=== PATIENT | male | born 1955 | race Caucasian/White ===

== ENCOUNTER 2023-01-31 13:00 | Outpatient (RCR) | payer MEDICARE, SELFPAY ==
--- NOTE | 2023-01-10 13:30 | PC.NURSE ---
PATIENT ARRIVES AMBULATORY TO INFUSION SERVICES. PATIENT IS MADE COMFORTABLE IN THE RECLINER. CONSENT SIGNED. VITAL SIGNS OBTAINED. PERIPHERAL IV INITIATED IN THE R WRIST AFTER 1 ATTEMPT USING A 22G IV CATHETER IMMEDIATE BLOOD RETURN. IV INFUSION INITITATED AT 1:10PM.
--- NOTE | 2023-01-10 16:12 | PC.NURSE ---
IV INFUSION WAS COMPLETED AT 1340. THE IV WAS FLUSHED WITH NORMAL SALINE AND THE IV CATHETER WAS REMOVED. THE SITE IS COVERED WITH A COTTON BALL AND BAND AID. PATIENT IS DISCHARGED AMBULATORY TO HOME WITH NO COMPLAINTS.
[2023-01-10 16:15] VITALS: BP 149/77; PULSE 75; RESP 20; TEMP 36.7; O2SAT 94
[2023-01-17 13:00] VITALS: BP 158/76; PULSE 73; RESP 20; TEMP 36.5; O2SAT 95
--- NOTE | 2023-01-17 13:54 | PC.NURSE ---
PATIENT ARRIVES AMBULATORY TO INFUSION SERVICES. PATIENT IS MADE COMFORTABLE IN THE RECLINER. VITAL SIGNS OBTAINED. PERIPHERAL IV INITIATED IN THE R WRIST AFTER 3 ATTEMPTS USING A 22G IV CATHETER. PATIENT TOLERATED PROCEDURE WELL. POST IV INFUSION THE IV IS FLUSHED WITH NORMAL SALINE AND REMOVED. THE SITE IS COVERED WITH A COTTON BALL AND BAND AID. THE PATIENT IS DISCHARGED AMBULATORY TO HOME WITH NO COMPLAINTS.
[2023-01-24 13:04] VITALS: BP 167/95; PULSE 77; RESP 20; TEMP 36.3; O2SAT 95
--- NOTE | 2023-01-24 13:34 | PC.NURSE ---
Patient is here for Prolastin infusion, he denies any issues with previous infusion. Vitals obtained, IV started and tolerated well. Prolastin infusing and patient is tolerating well without issues. We will continue to monitor.
[2023-01-31 12:56] VITALS: PULSE 86; RESP 22; TEMP 36.7; O2SAT 94
--- NOTE | 2023-01-31 13:17 | PC.NURSE ---
1256: Pt. to [facility] amb. with portable O2 intact. Pt. called in with current weight, pharmacy aware.Seated in recliner. O2 to wall unit @ 4L n/c per pt. request. VSS. #22 gauge IV initiated to right hand on first attempt. Flushes easily. Pt. denies c/o pain.
--- NOTE | 2023-01-31 13:48 | PC.NURSE ---
1325: IV Prolastin initiated at this time. Pt. denies needs or c/o. 1353: Prolastin infusion completed. Pt. wihout s&s of adverse reaction. IV d/c'd, pressure to site. 1355: D/c'd to home amb. with portable O2 intact.
== END 2023-02-02 23:59 | disposition home or self-care (01) ==
LOC: INF 13:00
PROVIDERS: PCP Family Medicine; Visit Provider Internal Medicine
DX: J43.2 Centrilobular emphysema (principal)
CPT/HCPCS: 96365; J0256

== ENCOUNTER 2023-02-07 20:22 | Emergency (ER) | payer MEDICARE, SELFPAY ==
[2023-02-07 20:28] VITALS: BP 163/119; PULSE 156; RESP 18; TEMP 36.6; O2SAT 98; BMI 41.5
[2023-02-07 20:34] VITALS: BP 163/119; PULSE 157; RESP 14
[2023-02-07 20:38] VITALS: BP 157/104; PULSE 84; RESP 12
--- NOTE | 2023-02-07 20:39 | ED_ITS ---
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 Presents complaining of rapid heart beat. States he was not aware of it and was and is asymptomatic. His watch is how he found out. He did not want to come to the hospital but his insisted. He denies any worsening of dyspnea and denies chest pain or nausea. no abdominal pain Onset (ago): hour(s) Related Data Home Medications Medication Instructions Recorded Confirmed albuterol sulfate 90 mcg/actuation inhalation 01/17/23 aerosol inhaler fluticasone fur. 100 mcg-umeclid inhalation 01/17/23 62.5 mcg-vilant 25 mcg inhalat.powder (Trelegy Ellipta) primidone 250 mg tablet mg 01/17/23 primidone 50 mg tablet mg 01/17/23 Allergies Allergy/AdvReac Type Severity Reaction Status Date / Time No Known Drug Allergies Allergy Verified 02/07/23 20:36 Review of Systems ROS Status of ROS 10 or more systems reviewed and unremarkable except as noted in history and below [facility] Medical History (Updated 02/07/23 @ 23:38 by Bridger Baac MD) (~05/2021) Surgical History (Updated 01/17/23 @ 11:13 by Natalia Rodriguez) (~2019) (~04/2020) Family History (Updated 01/17/23 @ 11:09 by Natalia Rodriguez) Mother Emphysema of lung Father Leukemia Social History (Updated 01/17/23 @ 11:14 by Natalia Rodriguez) Smoking status: Former smoker What tobacco products do you use: cigarettes Pack-years instructions: Please document either packs per day or cigarettes per day in order for pack years to calculate correctly. If using both packs per day and cigarettes per day, please make sure that they denote the same thing. If they differ, pack- years will calculate based on packs per day. Packs Per Day Cigarettes Per Day 1/4 of a pack 5 1/2 a pack 10 3/4 of a pack 15 1 pack 20 1.5 pack 30 2 packs 40 2.5 packs 50 3 packs 60 Packs per day: 1 Smoking quit date/years: <= 15 years ago Exam Constitutional Vital Signs - 24 hr 02/07/23 20:28 02/07/23 20:34 02/07/23 20:38 Temperature 97.8 F Pulse Rate 157 H 84 Pulse Rate [Monitor] 156 H Respiratory Rate 18 14 12 Blood Pressure 163/119 H 157/104 H Blood Pressure [Right Arm] 163/119 H Pulse Oximetry 98 Oxygen Delivery Method Nasal Cannula Oxygen Delivery Flow Rate 4 02/07/23 21:01 02/07/23 21:01 02/07/23 22:34 Temperature Pulse Rate 83 78 71 Pulse Rate [Monitor] Respiratory Rate 18 19 14 Blood Pressure 130/88 H 130/88 H 141/79 H Blood Pressure [Right Arm] Pulse Oximetry 97 97 96 Oxygen Delivery Method Oxygen Delivery Flow Rate Common normals: no apparent distress and oriented x3 HENMT Common normals: normocephalic and head/scalp atraumatic Eye Common normals: EOMs intact bilaterally and conjunctivae normal Respiratory Common normals: normal respiratory effort, no retractions, no use of accessory muscles and clear to auscultation bilaterally Cardio Rate: tachycardic GI Common normals: Normal to inspection, nondistended, normoactive bowel sounds present, soft to palpation and non-tender Extremity Common normals: normal to inspection and full ROM Neuro Common normals: oriented x3, moves all extremities, no focal motor deficits and no sensory deficits noted Psych Appearance: grossly normal Course Vital Signs Vital signs: Vital Signs Temperature 97.8 F 02/07/23 20:28 Pulse Rate 156 H 02/07/23 20:28 Respiratory Rate 18 02/07/23 20:28 Blood Pressure 163/119 H 02/07/23 20:28 Pulse Oximetry 98 02/07/23 20:28 Oxygen Delivery Method Nasal Cannula 02/07/23 20:28 Oxygen Delivery Flow Rate 4 02/07/23 20:28 Temperature 97.8 F 02/07/23 20:28 Pulse Rate 71 02/07/23 22:34 Respiratory Rate 14 02/07/23 22:34 Blood Pressure 141/79 H 02/07/23 22:34 Pulse Oximetry 96 02/07/23 22:34 Oxygen Delivery Method Nasal Cannula 02/07/23 20:28 Oxygen Delivery Flow Rate 4 02/07/23 20:28 Medical Decision Making MDM Narrative Medical decision making narrative: patient presents with acute onset of asymptomatic tachycardia. No chest pain. Has COPD 02 dependent. No more short of breath than usual. Patient treated with 5mg metoprolol IVP and responded within 3 minutes to normal sinus rate. Workup included neg d-dimer and neg serial troponins. Patient remained asymptomatic and is discharged home to follow up with his family doctor Lab Data Labs: Lab Results 02/07/23 02/07/23 Range/Units 20:43 22:50 WBC 8.8 (4.0-11.0) 10^3/uL RBC 4.55 L (4.70-6.10) 10^6/uL Hgb 14.9 (14.0-18.0) g/dL Hct 42.6 (42.0-54.0) % MCV 93.6 (80.0-94.0) fL MCH 32.7 (25.9-34.0) pg MCHC 35.0 (29.9-35.2) g/dL RDW 12.4 (11.0-15.0) % Plt Count 293 (150-450) 10^3/uL MPV 10.2 (9.5-13.5) fL Neut % (Auto) 51.5 (43.0-75.0) % Lymph % (Auto) 36.6 (20.5-60.0) % [place] % (Auto) 8.6 (1.7-12.0) % Eos % (Auto) 2.4 (0.9-7.0) % Baso % (Auto) 0.7 (0.2-2.0) % Neut # (Auto) 4.5 (1.4-6.5) 10^3/uL Lymph # (Auto) 3.2 (1.2-3.8) 10^3/uL [place] # (Auto) 0.8 (0.3-0.8) 10^3/uL Eos # (Auto) 0.2 (0.0-0.7) 10^3/uL Baso # (Auto) 0.1 (0.0-0.1) 10^3/uL Abs Immat Gran (auto) 0.02 (0.00-0.03) 10^3/uL Imm/Tot Granulo (auto) 0.2 (0.0-0.5) % D-Dimer 0.41 (<=0.59) mg/L FEU Sodium 138 (136-145) mmol/L Potassium 4.1 (3.5-5.1) mmol/L Chloride 103 (98-107) mmol/L Carbon Dioxide 27.1 (21.0-32.0) mmol/L Anion Gap 12.0 BUN 12.0 (7.0-18.0) mg/dL Creatinine 1.01 (0.70-1.30) mg/dL Est GFR ( Amer) >60 (>=60) Est GFR (Non-Af Amer) >60 (>=60) BUN/Creatinine Ratio 11.9 Glucose 141 H (74-106) mg/dL Calcium 9.1 (8.5-10.1) mg/dL Troponin I High Sens 13.4 12.5 (4.0-76.1) pg/mL Discharge Plan Discharge Chief Complaint: Chest Pain Clinical Impression: Tachycardia Prescriptions / Home Meds: No Action primidone 50 mg tablet primidone 250 mg tablet albuterol sulfate 90 mcg/actuation HFA aerosol inhaler INHALATION Trelegy Ellipta 100-62.5-25 mcg blister with device INHALATION Instructions: Tachycardia (ED) Additional Instructions: follow up with your doctor within the next couple of days for recheck Stand Alone Forms: Portal Instructions Referrals: KLAUDIA MALONEY [Primary Care Provider] - 1 week
--- NOTE | 2023-02-07 20:44 | ECG_ITS ---
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
--- NOTE | 2023-02-07 20:44 | XR_ITS ---
The [address] [address] Patient Name: STACEY COLEY MRN: [id number] date: 1955 Sex: M Assigned Patient Location: ER Current Patient Location: ER Accession/Order Number: [id number] Exam Date: 02/07/2023 21:07 Report Date: 02/07/2023 21:37 At the request of: ESTELLA FLORES Procedure: XR chest 1V EXAM: XR chest 1V HISTORY: Tachycardia COMPARISON: 04/14/2020 TECHNIQUE: Frontal view of the chest. FINDINGS: No focal consolidations or large pleural effusions. Cardiomediastinal silhouette is unremarkable. No acute osseous abnormality noted. IMPRESSION: No acute disease. Electronically authenticated by: MANDY REED Date: 02/07/2023 21:37
[2023-02-07 20:53] LABS: Basophils Absolute Auto 0.1 10^3/uL (0.0-0.1); Basophils Percent Auto 0.7 % (0.2-2.0); Eosinophils Absolute Auto 0.2 10^3/uL (0.0-0.7); Eosinophils Percent Auto 2.4 % (0.9-7.0); Hematocrit 42.6 % (42.0-54.0); Hemoglobin 14.9 g/dL (14.0-18.0); Immature Granulocytes Abs Auto 0.02 10^3/uL (0.00-0.03); Immature Granulocytes Pct Auto 0.2 % (0.0-0.5); Lymphocytes Absolute Auto 3.2 10^3/uL (1.2-3.8); Lymphocytes Percent Auto 36.6 % (20.5-60.0); Mean Corpuscular Hemoglobin 32.7 pg (25.9-34.0); Mean Corpuscular Volume 93.6 fL (80.0-94.0); Mean Platelet Volume 10.2 fL (9.5-13.5); Monocytes Absolute Auto 0.8 10^3/uL (0.3-0.8); Monocytes Percent Auto 8.6 % (1.7-12.0); Neutrophils Absolute Auto 4.5 10^3/uL (1.4-6.5); Neutrophils Percent Auto 51.5 % (43.0-75.0); Platelet Count 293 10^3/uL (150-450); Red Blood Count 4.55 10^6/uL (4.70-6.10); Red Cell Distribution Width 12.4 % (11.0-15.0); White Blood Count 8.8 10^3/uL (4.0-11.0)
[2023-02-07] MEDS: METOPROLOL TARTRATE 5 MG/5 ML VIAL IVP (20:54)
[2023-02-07 21:01] VITALS: BP 130/88; PULSE 78; PULSE 83; RESP 18; RESP 19; O2SAT 97
[2023-02-07 21:16] LABS: D Dimer 0.41 mg/L FEU (<=0.59)
[2023-02-07 21:24] LABS: BUN Creatinine Ratio 11.9; Calcium 9.1 mg/dL (8.5-10.1); Carbon Dioxide 27.1 mmol/L (21.0-32.0); Chloride 103 mmol/L (98-107); Estimated GFR (African America >60 (>=60); Estimated GFR (Non-African Ame >60 (>=60); Glucose 141 mg/dL (74-106); Potassium 4.1 mmol/L (3.5-5.1); Sodium 138 mmol/L (136-145); Troponin I High Sensitivity 13.4 pg/mL (4.0-76.1)
[2023-02-07 22:34] VITALS: BP 141/79; PULSE 71; RESP 14; O2SAT 96
[2023-02-07 23:30] LABS: Troponin I High Sensitivity 12.5 pg/mL (4.0-76.1)
== END 2023-02-07 23:49 | disposition home or self-care (01) ==
PROVIDERS: Emergency Provider Internal Medicine; PCP Family Medicine
DX: R00.0 Tachycardia, unspecified (principal); J44.9 Chronic obstructive pulmonary disease, unspecified; E88.01 Alpha-1-antitrypsin deficiency; Z79.899 Other long term (current) drug therapy; Z87.891 Personal history of nicotine dependence; J43.2 Centrilobular emphysema
CPT/HCPCS: 36415; 71045; 80048; 84484; 85025; 85378; 93005; 96365; 96374; 99285; J0256

== ENCOUNTER 2023-02-14 12:01 | Outpatient (OUT) | payer MEDICARE, SELFPAY | END 2023-02-14 12:02 | disposition home or self-care (01) | LOC: LAB 12:07 | PROVIDERS: PCP Family Medicine; Visit Provider Family Medicine | DX: R00.0 Tachycardia, unspecified (principal); E88.01 Alpha-1-antitrypsin deficiency; J43.2 Centrilobular emphysema | CPT/HCPCS: 36415; 84436; 84443 ==

== ENCOUNTER 2023-02-28 13:00 | Outpatient (RCR) | payer MEDICARE, SELFPAY ==
[2023-02-07 12:50] VITALS: BP 175/80; PULSE 98; RESP 22; TEMP 36.6; O2SAT 97
[2023-02-07] MEDS: ALPHA IV (13:11)
[2023-02-07] MEDS: PROTEINASE INHIBITOR IV (13:11)
[2023-02-14 12:28] VITALS: BP 165/82; PULSE 74; RESP 20; TEMP 36.3; O2SAT 93
[2023-02-14] MEDS: PROTEINASE INHIBITOR IV (12:49)
[2023-02-14] MEDS: ALPHA IV (12:49)
--- NOTE | 2023-02-14 13:31 | PC.NURSE ---
Patient is here for prolastin infusion, he denies any complaints or concerns. Patient tolerated infusion without difficulty and was discharged home.
[2023-02-21 12:55] VITALS: BP 168/79; PULSE 80; RESP 20; TEMP 36.3
[2023-02-21] MEDS: ALPHA IV (13:05)
[2023-02-21] MEDS: PROTEINASE INHIBITOR IV (13:05)
[2023-02-28 13:00] VITALS: BP 175/81; PULSE 91; RESP 20; TEMP 36.4; O2SAT 94
[2023-02-28] MEDS: PROTEINASE INHIBITOR IV (13:31)
[2023-02-28] MEDS: ALPHA IV (13:31)
== END 2023-03-05 23:59 | disposition home or self-care (01) ==
LOC: INF 13:00
PROVIDERS: PCP Family Medicine; Visit Provider Internal Medicine
DX: E88.01 Alpha-1-antitrypsin deficiency (principal); J43.2 Centrilobular emphysema
CPT/HCPCS: 96365; 96366; J0256

== ENCOUNTER 2023-04-04 13:00 | Outpatient (RCR) | payer MEDICARE, SELFPAY ==
[2023-03-07 12:58] VITALS: BP 184/83; PULSE 74; RESP 24; TEMP 36.3; O2SAT 93
--- NOTE | 2023-03-07 12:58 | PC.NURSE ---
Pt. to [facility] amb per self. Called in with weight, pharmacy notified. Pt. seated in recliner. O2 intact at 4L n/c. VSS. #22 gauge IV initiated to left hand on first attempt. Flushes easily with good blood return. Pt. tolerated without c/o. IV Prolastin infusion initiated. Pt. without needs or c/o.
--- NOTE | 2023-03-07 13:45 | PC.NURSE ---
Tolerated infusion without c/o. IV d/c'd pressure to site. D/c'd to home amb.
[2023-03-14 13:03] VITALS: BP 181/84; PULSE 92; RESP 24; TEMP 35.7; O2SAT 94
--- NOTE | 2023-03-14 13:25 | PC.NURSE ---
Pt. to [facility] amb. with portable O2 intact at 4L n/c. Pt. called in weight earlier, pharmacy notified. Seated in recliner. VSS. O2 to wall unit. #22 gauge IV initiated to right hand on second attempt. Flushes easily without redness or edema. Pt. tolerated without c/o. IV Prolastin initiated . Pt without needs or c/o.
--- NOTE | 2023-03-14 13:45 | PC.NURSE ---
Infusion completed at this time. Pt. tolerated without s&s of adverse reaction. IV d/c'd, pressure to site. Pt. d/c'd amb. to home with portable O2 intact.
[2023-03-21 12:55] VITALS: BP 155/79; PULSE 78; RESP 20; TEMP 36.6; O2SAT 96
--- NOTE | 2023-03-21 13:46 | PC.NURSE ---
Prolastin infusion completed. Pt. tolerated without s&s of adverse reaction. IV d/c'd, pressure to site. D/c'd amb. to home with portable O2 intact.
[2023-03-28 13:00] VITALS: BP 159/76; PULSE 76; RESP 20; TEMP 36.6; O2SAT 95
[2023-04-04 12:58] VITALS: BP 166/83; PULSE 73; RESP 18; TEMP 36.5; O2SAT 95
--- NOTE | 2023-04-04 13:15 | PC.NURSE ---
Patient is here for Prolastin infusion, he denies any issues or concerns at this time. He is tolerating infusion well.
--- NOTE | 2023-04-04 13:45 | PC.NURSE ---
Patient completed infusion without any issues or concerns, He was discharged home.
== END 2023-04-05 23:59 | disposition home or self-care (01) ==
LOC: INF 13:00
PROVIDERS: Visit Provider Internal Medicine
DX: E88.01 Alpha-1-antitrypsin deficiency (principal); J43.2 Centrilobular emphysema
CPT/HCPCS: 96365; 96366; J0256

== ENCOUNTER 2023-05-02 07:30 | Outpatient (RCR) | payer MEDICARE, SELFPAY ==
[2023-04-11 12:58] VITALS: BP 159/78; PULSE 76; RESP 20; TEMP 36.5; O2SAT 95
--- NOTE | 2023-04-11 13:29 | PC.NURSE ---
Patient is here for Prolastin infusion, he is tolerating this well. He denies any issues or concerns at this time.
--- NOTE | 2023-04-11 13:45 | PC.NURSE ---
Patient completed infusion without any issues, his IV was discontinued and he was discharged home.
[2023-04-18 12:55] VITALS: BP 155/88; PULSE 93; RESP 20; O2SAT 95
[2023-04-25 13:00] VITALS: BP 144/78; PULSE 76; RESP 24; TEMP 36.4; O2SAT 95
--- NOTE | 2023-04-25 13:00 | PC.NURSE ---
1300: Pt. to [facility] amb. with portable O2 intact at 3L n/c. Seated in recliner. VSS. #24 gauge IV initiate to left hand on 2nd attempt per JIGAR England after this RN attempted x's 2. Pt. tolerated with minimal c/o. IV Prolastin initiated after IV obtained and secured. Pt. denies needs or c/o.
--- NOTE | 2023-04-25 13:55 | PC.NURSE ---
1353: IV Prolastin completed without s&s of adverse reaction. IV d/c'd, pressure to site. 1355: Pt. d/c'd amb. to home with portable O2 intact.
[2023-05-02 13:00] VITALS: BP 153/101; PULSE 82; RESP 24; TEMP 36.7; O2SAT 97
--- NOTE | 2023-05-02 13:19 | PC.NURSE ---
1300: Pt. in for weekly Prolastin infusion. Weight called in per. patient earlier, pharmacy aware. Seated in recliner. Continuous O2 intact at 3L n/c. VSS. BP slightly elevated. #24 gauge IV initiated to left arm on second attempt. Flushes easily without edema or c/o pain. Pt. tolerated without c/o. Iv Prolastin initiated as ordered.
--- NOTE | 2023-05-02 14:02 | PC.NURSE ---
1348: IV Prolastin completed. Pt. tolerated without c/o. IV d/c'd, pressure to site.
== END 2023-05-05 23:59 | disposition home or self-care (01) ==
LOC: INF 07:30
PROVIDERS: Visit Provider Internal Medicine
DX: E88.01 Alpha-1-antitrypsin deficiency (principal); J43.2 Centrilobular emphysema
CPT/HCPCS: 96365; J0256

== ENCOUNTER 2023-05-22 09:58 | Outpatient (OUT) | payer MEDICARE, SELFPAY ==
--- NOTE | 2023-05-22 10:07 | CT_ITS ---
[address] [address] Patient Name: STACEY COLEY MRN: [id number] date: 1955 Sex: M Assigned Patient Location: CT Current Patient Location: Accession/Order Number: [id number] Exam Date: 05/22/2023 10:15 Report Date: 05/23/2023 01:44 At the request of: JEFERSON GLOVER Procedure: CT lung screening low-dose EXAMINATION: CT lung screening low-dose HISTORY: History Of Tobacco Dependence Z87.891 COMPARISON: CT chest 04/25/2022 TECHNIQUE: Axial, Coronal, and Sagittal images were created without the administration of IV contrast material. Dose reduction techniques were achieved by using automated exposure control and/or adjustment of mA and/or kV according to patient size and/or use of iterative reconstruction technique. FINDINGS: LUNGS: Complete collapse of the left lower lobe superior segment and medial basilar segments appears to be due to to obstruction or mucous plugging of previously placed in the bronchial valves. A few patchy areas of infiltrate scattered within the left lung. Marked emphysematous changes bilaterally. PLEURA: No mass, effusion, or pneumothorax. VASCULATURE: No abnormality. ASHIA: No mass or pathologic adenopathy. MEDIASTINUM: No mass or pathologic adenopathy. CARDIAC: No enlargement, pericardial thickening, or significant calcification. AORTA: No aneurysm or dissection. CHEST WALL: No mass or axillary adenopathy BONES: No bone lesion or fracture. LIMITED ABDOMEN: No suspicious findings. Limited images of the upper abdomen. OTHER: Negative. CT/CT lung screening low-dose IMPRESSION: 1. Lung-RADS Category 4A- Suspicious. Findings for which additional diagnostic testing and/ or tissue sampling is recommended. 3 month LDCT; PET/CT may be used when there is a >= 8 mm solid component. Electronically authenticated by: AISSATOU WORKMAN Date: 05/23/2023 01:44
== END 2023-05-22 09:59 | disposition home or self-care (01) ==
LOC: CT 09:58
PROVIDERS: Visit Provider Internal Medicine
DX: Z87.891 Personal history of nicotine dependence (principal); R91.8 Other nonspecific abnormal finding of lung field
CPT/HCPCS: 71271

== ENCOUNTER 2023-05-30 07:32 | Outpatient (RCR) | payer MEDICARE, SELFPAY ==
[2023-05-09 13:43] VITALS: PULSE 82; TEMP 36.4
--- NOTE | 2023-05-09 13:50 | PC.NURSE ---
1255: Pt. to [facility] amb. per self. Cont. O2 intact at 3L nasal cannula. Seated in recliner. O2 to wall unit. VSS. #22 gauge IV inserted to left wrist on second attempt perNoel Andrews RN. Flushes easily without edema or c/o pain. Pt. tolerated with no c/o. 1320: IV Prolastin initiated at this time. Pt. denies needs. 1350: IV Prolastin completed without s&s of adverse reaction. IV d/c'd, pressure to site. 1354: Pt. d/c'd amb. to home.
[2023-05-16 12:50] VITALS: PULSE 78; RESP 18; TEMP 36.7; O2SAT 94
[2023-05-16] MEDS: ALPHA IV (12:57)
[2023-05-16] MEDS: PROTEINASE INHIBITOR IV (12:57)
--- NOTE | 2023-05-16 12:57 | PC.NURSE ---
1257: IV Prolastin initiated at this time. Pt. without c/o or needs.
--- NOTE | 2023-05-16 13:35 | PC.NURSE ---
1330: IV Prolastin completed at this time. IV d/c'd, pressure to site. Pt. without s&s of adverse reaction. Pt. d/c'd amb. to home.
[2023-05-23 13:10] VITALS: BP 166/55; PULSE 86; RESP 20; TEMP 35; O2SAT 96
[2023-05-30 13:18] VITALS: BP 166/77; PULSE 87; RESP 22; TEMP 36.6; O2SAT 92
--- NOTE | 2023-05-30 13:22 | PC.NURSE ---
1250: Pt. to [facility] amb. Seated in recliner. O2 intact at 3L n/c. VSS. Slightly dyspneic with exertion. #22 gauge initiated to left wrist on first attempt per this RN. Flushes easily without edema or redness, pt. tolerates without c/o pain. IV Prolastin initiated as ordered. Pt. denies needs or c/o.
--- NOTE | 2023-05-30 14:06 | PC.NURSE ---
1342: IV Prolastin completed at this time. No s&s of adverse reaction. IV d/c'd, pressure to site. 1345: Pt. d/c'd amb to home.
== END 2023-06-05 23:59 | disposition home or self-care (01) ==
LOC: INF 07:32
PROVIDERS: Visit Provider Internal Medicine
DX: E88.01 Alpha-1-antitrypsin deficiency (principal); J43.2 Centrilobular emphysema
CPT/HCPCS: 96360; 96365; J0256

== ENCOUNTER 2023-07-04 07:32 | Outpatient (RCR) | payer MEDICARE, SELFPAY ==
[2023-06-06 16:29] VITALS: BP 133/76; PULSE 75; RESP 16; TEMP 36.1; O2SAT 96
--- NOTE | 2023-06-06 16:31 | PC.NURSE ---
1300: Pt. to [facility] amb. Seated in recliner. Pt. with continuous O2 intact at 3L nasal cannula. VSS. IV initiated to left arm on first attempt without difficulty. Pt. tolerated with no c/o. Flushes easily with no redness or edema. 1319: IV Prolastin initiated at this time as ordered. Pt. denies needs or c/o. 1350: Prolastin infusion complete without s&s of adverse reaction. IV d/c'd, pressure to site. Pt tolerated with no c/o. 1355: Pt. d/c'd amb. to home.
[2023-06-13 13:19] VITALS: BP 139/72; PULSE 72; RESP 20; TEMP 36.4; O2SAT 95
--- NOTE | 2023-06-13 13:21 | PC.NURSE ---
1300: Pt. to [facility] amb. for weekly infusion. Seated in recliner. Pt. with cont. O2 intact at 3L nasal cannula. VSS. IV initiated to left ac on first attempt without difficulty. Pt. tolerated with no c/o. IV Prolastin initiated at this time. Pt. denies needs.
--- NOTE | 2023-06-13 13:46 | PC.NURSE ---
1343: Prolastin infusion complete. Pt. tolerated without adverse reaction. IV d/c'd pressure to site. 1345: D/c'd amb to home.
[2023-06-20 13:11] VITALS: BP 137/72; PULSE 78; RESP 20; TEMP 36.3; O2SAT 96
[2023-06-27 13:53] VITALS: BP 158/82; PULSE 71; RESP 20; TEMP 36.6; O2SAT 95
--- NOTE | 2023-06-27 13:58 | PC.NURSE ---
1300: Arrived to department for weekly infusion. Portable oxygen in use. Pt is pleasant and talkative; denies discomfort at present. VS obtained; IV started; infusion initiated. Pt. denies needs at this time.
[2023-07-04 13:43] VITALS: BP 158/78; PULSE 80; RESP 18; TEMP 36.4; O2SAT 94
== END 2023-07-05 23:59 | disposition home or self-care (01) ==
LOC: INF 07:32
PROVIDERS: Visit Provider Internal Medicine
DX: J43.9 Emphysema, unspecified (principal); E88.01 Alpha-1-antitrypsin deficiency
CPT/HCPCS: 96365; J0256

== ENCOUNTER 2023-08-01 07:42 | Outpatient (RCR) | payer MEDICARE, SELFPAY ==
[2023-07-11 13:06] VITALS: BP 145/75; PULSE 72; RESP 18; TEMP 36.2; O2SAT 98
[2023-07-18 12:50] VITALS: BP 148/76; PULSE 72; RESP 20; TEMP 36.5; O2SAT 97
--- NOTE | 2023-07-18 13:01 | PC.NURSE ---
Pt arrived at 1250, patient is here for prolastin infusion and denies any issues. IV started and tolerated well with good blood return.
[2023-07-25 13:17] VITALS: BP 140/78; PULSE 77; RESP 18; TEMP 36.5; O2SAT 98
--- NOTE | 2023-07-25 13:51 | PC.NURSE ---
1300 arrival ambulatory to chair 3. alert and oriented. oxygen connected to wall oxygen at 4 lpm nc. iv initiated left forearm see iv flow sheet., tolerated well. 1319 iv prolastin initiated as ordered. 1340 infusion completed, flushed line with 20 ml of nss, IV site dc'd, catheter intact. cotton ball applied, secured with coban, patient instructed to remove coban after 5 - 10 mins. verbalized understanding
[2023-08-01 12:57] VITALS: BP 171/77; PULSE 87; RESP 20; TEMP 36.4; O2SAT 93
--- NOTE | 2023-08-01 13:29 | PC.NURSE ---
Patient is here for Prolastin infusion, his current weight is 245 pounds. He denies any issues or concerns. He is tolerating infusion well.
== END 2023-08-01 14:07 | disposition home or self-care (01) ==
LOC: INF 07:42
PROVIDERS: Visit Provider Internal Medicine
DX: J43.2 Centrilobular emphysema (principal); E88.01 Alpha-1-antitrypsin deficiency
CPT/HCPCS: 51702; 96365; J0256

== ENCOUNTER 2023-09-05 07:28 | Outpatient (RCR) | payer MEDICARE, SELFPAY ==
[2023-08-08 13:16] VITALS: BP 135/79; PULSE 73; RESP 20; TEMP 36.4; O2SAT 94
--- NOTE | 2023-08-08 13:26 | PC.NURSE ---
1300 arrival ambulatory to chair 1, alert oriented, oxygen at 4 lpm per nasal cannula. 1315 @24 iv initiated left wrist on 1st attempt, patient tolerated well.
--- NOTE | 2023-08-08 14:50 | PC.NURSE ---
1350 infusion complete. tolerated well. IV dc'd cath intact, site clear, cottonball applied secured with coban. 1355 released ambulatory.
[2023-08-15 13:12] VITALS: BP 188/95; PULSE 87; RESP 20; TEMP 36.4; O2SAT 91
--- NOTE | 2023-08-15 13:15 | PC.NURSE ---
1254: Pt. to [facility] amb. for weekly infusion. Seated in recliner. Cont. O2 intact at 4L n/c. VSS. #22 gauge IV initiated to left arm on second attempt. Flushes easily without redness or edema. Pt. tolerates without c/o. 1310: IV Prolastin initiated at this time. Pt. without c/o or needs.
--- NOTE | 2023-08-15 13:43 | PC.NURSE ---
1340: Prolastin completed without s&s of adverse reaction. IV d/c'd pressure to site. Pt. d/c'd amb. to home, O2 intact.
[2023-08-22 13:03] VITALS: BP 157/87; PULSE 80; RESP 16; TEMP 36.2; O2SAT 90
--- NOTE | 2023-08-22 13:09 | PC.NURSE ---
1250 Arrival for infusion, alert oriented offers no complaints. 1255 #22 iv initiated LACF on 1 attempt, tolerated well. excellent blood return.
--- NOTE | 2023-08-22 13:25 | PC.NURSE ---
1320 Tolerating infusion without any issues.
--- NOTE | 2023-08-22 13:54 | PC.NURSE ---
1340 iv infusion completed. IV dc'd catheter intact, Cottonball applied.yggh
[2023-08-29 12:55] VITALS: BP 156/81; PULSE 77; RESP 20; TEMP 36.4; O2SAT 96
--- NOTE | 2023-08-29 13:40 | PC.NURSE ---
Patient is here for Prolastin infusion, he denies any complaints. Vitals are stable, IV started in right wrist with good blood return. Patient tolerate infusion well and was discharged home ambulatory.
[2023-09-05 13:00] VITALS: BP 144/81; PULSE 77; RESP 18; TEMP 36.4; O2SAT 93
[2023-09-05] MEDS: PROTEINASE INHIBITOR IV (13:15)
[2023-09-05] MEDS: ALPHA IV (13:15)
--- NOTE | 2023-09-05 14:44 | PC.NURSE ---
1250 arrival ambulatory to chair 3, alert oriented, oxygen at 3 lpm switched to wall oxygen. spo2 92% on 3lpm. Iv initated left forarm on 1 attempt with #24 1 inch patient tolerated well, excellent blood return.
--- NOTE | 2023-09-05 14:49 | PC.NURSE ---
1315 iv prolastin initated over 30 mins. 1350 iv prolastin infused line flushed with 20 ml of ns. patient tolerated well. IV dc'd catheter intact, cotton ball applied and secured with coban. 1355 released ambulatory
== END 2023-09-05 23:59 | disposition home or self-care (01) ==
LOC: INF 07:28
PROVIDERS: Visit Provider Internal Medicine
DX: E88.01 Alpha-1-antitrypsin deficiency (principal); J43.2 Centrilobular emphysema
CPT/HCPCS: 96365; J0256

== ENCOUNTER 2023-10-03 07:25 | Outpatient (RCR) | payer MEDICARE, SELFPAY ==
[2023-09-12 12:55] VITALS: BP 170/82; PULSE 72; RESP 18; TEMP 36.5; O2SAT 96
[2023-09-12] MEDS: ALPHA IV (13:05)
[2023-09-12] MEDS: PROTEINASE INHIBITOR IV (13:05)
[2023-09-18] MEDS: PROTEINASE INHIBITOR IV (13:00)
[2023-09-18] MEDS: ALPHA IV (13:00)
[2023-09-19 12:56] VITALS: BP 165/74; PULSE 84; RESP 20; TEMP 36.8; O2SAT 95
--- NOTE | 2023-09-19 13:04 | PC.NURSE ---
1255 Arrival ambulatory for infusion. Alert oriented, no complaint offered. Oxygen at 4 lpm nc. VS obtained.
--- NOTE | 2023-09-19 14:31 | PC.NURSE ---
1335 infusion completed. IV dc'd rt forearm, site clear, catheter intact. cottonball and coban applied.
[2023-09-26 13:02] VITALS: BP 151/82; PULSE 74; RESP 20; TEMP 36.6; O2SAT 95
[2023-09-26] MEDS: PROTEINASE INHIBITOR IV (13:05)
[2023-09-26] MEDS: ALPHA IV (13:05)
--- NOTE | 2023-09-26 13:13 | PC.NURSE ---
1255 Arrival ambulatory to chair 3. alert oriented. oxygen at 4 lpm nc. spo2 94%, connected to wall oxygen at 4 lpm. IV initiated rt forearm with #24 IV, patient tolerated well. 1305 iv prolastin initiated.
--- NOTE | 2023-10-03 12:58 | ECG_ITS ---
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
[2023-10-03 13:00] VITALS: BP 155/91; PULSE 150; RESP 20; TEMP 36.4; O2SAT 95
[2023-10-03] MEDS: ALPHA IV (13:05)
[2023-10-03] MEDS: PROTEINASE INHIBITOR IV (13:05)
--- NOTE | 2023-10-03 13:34 | PC.NURSE ---
1300 Arrival ambulatory to chair 3, alert oriented, voices no complaints. Vital signs obtained. noted heart rate to be 150. patient denies any knowledge of fast heart rate, denies palpitations etc. 1304 cardiopulmonary in for 12 lead ekg. 1310 noted heart rate drops to 60. 1315 Dr Ruiz viewed ekg, and recommends patient checking with pcp. waiting in car had her come in to department. 1320 patients heart rate again up to 130-140's. discussed with and patient, patient agrees to go to the ER for evaluation. 1340 to ER per wheelchair for evaluation.
== END 2023-10-04 23:59 | disposition home or self-care (01) ==
LOC: INF 07:25
PROVIDERS: Visit Provider Internal Medicine
DX: E88.01 Alpha-1-antitrypsin deficiency (principal); J43.2 Centrilobular emphysema
CPT/HCPCS: 93005; 96365; J0256

== ENCOUNTER 2023-10-03 13:50 | Emergency (ER) | payer MEDICARE, SELFPAY ==
--- NOTE | 2023-10-03 13:55 | XR_ITS ---
The [address] [address] Patient Name: STACEY COLEY MRN: [id number] date: 1955 Sex: M Assigned Patient Location: ED.MAIN Current Patient Location: ER Accession/Order Number: [id number] Exam Date: 10/03/2023 14:00 Report Date: 10/03/2023 14:22 At the request of: JEANE DAVIS Procedure: XR chest 1V EXAM: CHEST 1 VIEW HISTORY: Tachycardia TECHNIQUE: Chest, one view. COMPARISON: 02/07/[address] 05/22/2023 FINDINGS: Lungs are mildly hyperinflated with background of emphysema. There is retrocardiac left lower lobe airspace disease, also seen on prior CT. Right lung is clear. No effusion or pneumothorax. Pulmonary vasculature is within normal limits. There is aortic atherosclerosis and normal heart size. XR/XR chest 1V IMPRESSION: 1. Chronic obstructive pulmonary disease with left lower lobe retrocardiac airspace disease correlating with chronic atelectasis/collapse and consolidation of the left lower lobe as seen on previous CT 05/22/2023. Correlate with CT report. Follow-up bronchoscopy and repeat radiographs to document stability or resolution. 2. Clear right lung. 3. Atherosclerosis and normal heart size. Electronically authenticated by: MIMI LINDER Date: 10/03/2023 14:22
--- NOTE | 2023-10-03 13:55 | ECG_ITS ---
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
[2023-10-03 13:57] VITALS: BP 128/67; PULSE 82; RESP 16; TEMP 36.7; O2SAT 97; BMI 36.2
--- NOTE | 2023-10-03 14:04 | ED.ARRPALP1 ---
HPI - Arrhythmia/Palpitations General Chief Complaint: Arrhythmia/Palpitations Stated Complaint: AFIB Time Seen by Provider: 10/03/23 13:53 Source: patient Mode of arrival: Wheelchair Limitations: no limitations History of Present Illness HPI narrative: Patient is a 68-year-old male who presents to the emergency department for an elevated heart rate that was noted at the infusion center. Patient receives IV infusions for his alpha 1 antitrypsin deficiency, he wears oxygen by nasal cannula at 4 L chronically. He was noted to have an elevated heart rate at the infusion center in the 130s. He denies chest pain, shortness of breath, dizziness. He has no focal medical complaints at this time. He did not have any palpitations or discomfort in his chest when the infusion nurse noted the elevated heart rate. He was seen in this emergency room for an elevated heart rate last summer and was noted to respond to IV Lopressor and was discharged home. 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 No medications taken prior to arrival. Related Data Home Medications Medication Instructions Recorded Confirmed albuterol sulfate 90 mcg/actuation 2 inh inhalation Q4H PRN shortness 01/17/23 10/03/23 aerosol inhaler of breath fluticasone fur. 100 mcg-umeclid 1 inh inhalation DAILY 01/17/23 10/03/23 62.5 mcg-vilant 25 mcg inhalat.powder (Trelegy Ellipta) primidone 250 mg tablet 250 mg PO Q12H 01/17/23 10/03/23 primidone 50 mg tablet 50 mg PO DAILY 01/17/23 05/23/23 alpha-1 proteinase inhib.(hum) 7,000 mg IV .weekly 05/23/23 10/03/23 1,000 mg intravenous solution aspirin 81 mg tablet,delayed 81 mg PO DAILY 05/23/23 10/03/23 release (Adult Low Dose Aspirin) multivitamin with iron (Daily 1 tab PO DAILY 05/23/23 10/03/23 Vitamin with Iron tablet) Allergies Allergy/AdvReac Type Severity Reaction Status Date / Time No Known Drug Allergies Allergy Verified 02/07/23 20:36 Review of Systems ROS Constitutional Denies: fever or chills Ears, nose, mouth, and throat Reports: nasal congestion; Denies: throat pain Cardiovascular Denies: chest pain, palpitations, edema or swelling of feet/ankles Respiratory Denies: shortness of breath or cough Gastrointestinal Denies: nausea or vomiting Musculoskeletal Denies: back pain or neck pain Integumentary/Breast Denies: rash Neurological Denies: headache PFSH PFSH Medical History (Updated 10/03/23 @ 15:13 by TERE Grewal) Emphysema lung ?J43.9 - Emphysema, unspecified (ICD-10) COPD (chronic obstructive pulmonary disease) ?J44.9 - Chronic obstructive pulmonary disease, unspecified (ICD-10) Skin cancer (~05/2021) ?C44.90 - Unspecified malignant neoplasm of skin, unspecified (ICD-10) Surgical History (Updated 01/17/23 @ 11:13 by Natalia Rodriguez) History of cholecystectomy (~2019) ?Z90.49 - Acquired absence of other specified parts of digestive tract (ICD-10) Hx of tonsillectomy (~04/2020) ?Z90.89 - Acquired absence of other organs (ICD-10) Family History (Updated 01/17/23 @ 11:09 by Natalia Rodriguez) Mother Emphysema of lung Father Leukemia Social History Smoking status: Former smoker What tobacco products do you use: cigarettes Packs per day: 1 Smoking quit date/years: <= 15 years ago Exam Narrative Exam Narrative: Gen.: Awake, alert, in no distress Head: Normocephalic, atraumatic ENT: Moist mucous membranes Respiratory: No respiratory distress, lungs clear bilaterally Cardio: Regular rate and rhythm Extremities: Moves extremities equally, no pedal edema Psych: Normal mood and affect Neuro: No focal neuro deficit Skin: Warm, dry, intact Constitutional Vital Signs, click to edit/add: Last Vital Signs Temp 98.1 F 10/03/23 13:57 Pulse 79 10/03/23 15:16 Resp 16 10/03/23 13:57 BP 155/69 H 10/03/23 15:16 Pulse Ox 99 10/03/23 15:16 O2 Del Method Nasal Cannula 10/03/23 13:57 O2 Flow Rate 4 10/03/23 13:57 Course Vital Signs Vital signs: Vital Signs Temperature 98.1 F 10/03/23 13:57 Pulse Rate 82 10/03/23 13:57 Respiratory Rate 16 10/03/23 13:57 Blood Pressure 128/67 10/03/23 13:57 Pulse Oximetry 97 10/03/23 13:57 Oxygen Delivery Method Nasal Cannula 10/03/23 13:57 Oxygen Delivery Flow Rate 4 10/03/23 13:57 Temperature 98.1 F 10/03/23 13:57 Pulse Rate 79 10/03/23 15:16 Respiratory Rate 16 10/03/23 13:57 Blood Pressure 155/69 H 10/03/23 15:16 Pulse Oximetry 99 10/03/23 15:16 Oxygen Delivery Method Nasal Cannula 10/03/23 13:57 Oxygen Delivery Flow Rate 4 10/03/23 13:57 MDM - Arrhythmia/Palpitations MDM Narrative Medical decision making narrative: Lab studies within normal limits, patient is normal sinus rhythm in the emergency department, he has no focal medical complaints. Cardiac workup is unremarkable and he has normal vital signs on reevaluation. Discussed with the patient that he may need to follow-up with cardiology as this is his second episode of tachycardia. Unknown if this may be related to his medication infusion. We did make an appointment with [facility] cardiology office, patient has an appointment on October 11 at 10 AM. Return to the ER if symptoms change or worsen. I, Dr Monahan, have reviewed the above progress note and course of action in the ER; agree with the above. I have gone over history and physical, and discussed disposition and treatment plan with the patient. Medical Records Attestation: I reviewed the patient's medical records. Lab Data Attestation: I reviewed the patient's lab results. Labs: Lab Results 10/03/23 Range/Units 14:10 WBC 7.8 (4.0-11.0) 10^3/uL RBC 4.23 L (4.70-6.10) 10^6/uL Hgb 13.7 L (14.0-18.0) g/dL Hct 40.9 L (42.0-54.0) % MCV 96.7 H (80.0-94.0) fL MCH 32.4 (25.9-34.0) pg MCHC 33.5 (29.9-35.2) g/dL RDW 12.0 (11.0-15.0) % Plt Count 284 (150-450) 10^3/uL MPV 10.3 (9.5-13.5) fL Neut % (Auto) 48.9 (43.0-75.0) % Lymph % (Auto) 39.8 (20.5-60.0) % [place] % (Auto) 8.3 (1.7-12.0) % Eos % (Auto) 2.2 (0.9-7.0) % Baso % (Auto) 0.5 (0.2-2.0) % Neut # (Auto) 3.8 (1.4-6.5) 10^3/uL Lymph # (Auto) 3.1 (1.2-3.8) 10^3/uL [place] # (Auto) 0.7 (0.3-0.8) 10^3/uL Eos # (Auto) 0.2 (0.0-0.7) 10^3/uL Baso # (Auto) 0.0 (0.0-0.1) 10^3/uL Abs Immat Gran (auto) 0.02 (0.00-0.03) 10^3/uL Imm/Tot Granulo (auto) 0.3 (0.0-0.5) % PT 11.3 (9.0-11.6) sec INR 1.07 Sodium 141 (136-145) mmol/L Potassium 4.0 (3.5-5.1) mmol/L Chloride 104 (98-107) mmol/L Carbon Dioxide 28.2 (21.0-32.0) mmol/L Anion Gap 12.8 BUN 14.0 (7.0-18.0) mg/dL Creatinine 0.85 (0.70-1.30) mg/dL Est GFR ( Amer) >60 (>=60) Est GFR (Non-Af Amer) >60 (>=60) BUN/Creatinine Ratio 16.5 Glucose 106 (74-106) mg/dL Calcium 9.1 (8.5-10.1) mg/dL Magnesium 2.3 (1.8-2.4) mg/dL Total Bilirubin 0.5 (0.2-1.0) mg/dL AST 34 (15-37) U/L ALT 54 (16-63) U/L Alkaline Phosphatase 97 (46-116) U/L Troponin I High Sens 11.7 (4.0-76.1) pg/mL NT-Pro-B Natriuret Pep 119.0 (<=900.0) pg/mL Total Protein 8.1 (6.4-8.2) g/dL Albumin 3.7 (3.4-5.0) g/dL Globulin 4.4 g/dL Albumin/Globulin Ratio 0.8 TSH 0.934 (0.358-3.740) uIU/mL Imaging Data Chest x-ray: Attestation: I have reviewed the pertinent imaging results. Radiologist's impression: ITS Impressions Chest X-Ray 10/03/23 13:55 IMPRESSION: 1. Chronic obstructive pulmonary disease with left lower lobe retrocardiac airspace disease correlating with chronic atelectasis/collapse and consolidation of the left lower lobe as seen on previous CT 05/22/2023. Correlate with CT report. Follow-up bronchoscopy and repeat radiographs to document stability or resolution. 2. Clear right lung. 3. Atherosclerosis and normal heart size. Electronically authenticated by: MIMI LINDER Date: 10/03/2023 14:22 ECG Data Attestation: I personally reviewed and interpreted this ECG as follows: (Normal sinus rhythm at a rate of 72 with occasional PVC, mild ST depression noted no acute ST elevation. EKG reviewed by attending physician) Discharge Plan Discharge Chief Complaint: Arrhythmia/Palpitations Clinical Impression: Tachycardia Patient Disposition: Home, Self-Care Time of Disposition Decision: 15:11 Condition: Good Prescriptions / Home Meds: No Action aspirin [Adult Low Dose Aspirin] 81 mg tablet,delayed release (DR/EC) 81 mg PO DAILY multivitamin with iron [Daily Vitamin with Iron] Tablet 1 tab PO DAILY alpha-1 proteinase inhib.(hum) 1,000 mg recon soln 7,000 mg IV .weekly primidone 50 mg tablet 50 mg PO DAILY Rx Instructions: take at lunch primidone 250 mg tablet 250 mg PO Q12H albuterol sulfate 90 mcg/actuation HFA aerosol inhaler 2 inh INHALATION Q4H PRN (Reason: shortness of breath) Trelegy Ellipta 100-62.5-25 mcg blister with device 1 inh INHALATION DAILY Instructions: Tachycardia (ED) Additional Instructions: Please follow up with Cardiology - [facility] Cardiology specialty office ([phone]) on 10/12/23 at 10 am Stand Alone Forms: Portal Instructions Referrals: Physician,Non-Staff, MD [Primary Care Provider] - 1 week Discharge Date/Time: 10/03/23 15:33
[2023-10-03] MEDS: 0.9 % SODIUM CHLORIDE 1,000 ML 999 ML IV (14:19)
[2023-10-03 14:23] LABS: Basophils Percent Auto 0.5 % (0.2-2.0); Eosinophils Absolute Auto 0.2 10^3/uL (0.0-0.7); Eosinophils Percent Auto 2.2 % (0.9-7.0); Hematocrit 40.9 % (42.0-54.0); Hemoglobin 13.7 g/dL (14.0-18.0); Immature Granulocytes Abs Auto 0.02 10^3/uL (0.00-0.03); Immature Granulocytes Pct Auto 0.3 % (0.0-0.5); Lymphocytes Absolute Auto 3.1 10^3/uL (1.2-3.8); Lymphocytes Percent Auto 39.8 % (20.5-60.0); Mean Corpuscular HGB Conc 33.5 g/dL (29.9-35.2); Mean Corpuscular Hemoglobin 32.4 pg (25.9-34.0); Mean Corpuscular Volume 96.7 fL (80.0-94.0); Mean Platelet Volume 10.3 fL (9.5-13.5); Monocytes Absolute Auto 0.7 10^3/uL (0.3-0.8); Monocytes Percent Auto 8.3 % (1.7-12.0); Neutrophils Absolute Auto 3.8 10^3/uL (1.4-6.5); Neutrophils Percent Auto 48.9 % (43.0-75.0); Platelet Count 284 10^3/uL (150-450); Red Blood Count 4.23 10^6/uL (4.70-6.10); White Blood Count 7.8 10^3/uL (4.0-11.0)
[2023-10-03 14:38] LABS: Alanine Aminotransferase 54 U/L (16-63); Albumin Globulin Ratio 0.8; Albumin Level 3.7 g/dL (3.4-5.0); Alkaline Phosphatase 97 U/L (46-116); Anion Gap 12.8; Aspartate Amino Transferase 34 U/L (15-37); BUN Creatinine Ratio 16.5; Bilirubin Total 0.5 mg/dL (0.2-1.0); Calcium 9.1 mg/dL (8.5-10.1); Carbon Dioxide 28.2 mmol/L (21.0-32.0); Chloride 104 mmol/L (98-107); Estimated GFR (African America >60 (>=60); Estimated GFR (Non-African Ame >60 (>=60); Globulin 4.4 g/dL; Glucose 106 mg/dL (74-106); Sodium 141 mmol/L (136-145); Total Protein 8.1 g/dL (6.4-8.2)
[2023-10-03 14:43] LABS: INR 1.07; Prothrombin Time 11.3 sec (9.0-11.6)
[2023-10-03 14:48] LABS: Magnesium 2.3 mg/dL (1.8-2.4); Thyroid Stimulating Hormone 0.934 uIU/mL (0.358-3.740); Troponin I High Sensitivity 11.7 pg/mL (4.0-76.1)
[2023-10-03 15:01] VITALS: BP 131/67; PULSE 67; O2SAT 100
[2023-10-03 15:11] VITALS: PULSE 73; O2SAT 99
[2023-10-03 15:16] VITALS: BP 155/69; PULSE 79; O2SAT 99
== END 2023-10-03 15:33 | disposition home or self-care (01) ==
PROVIDERS: Physician Assistant; Emergency Provider Emergency Medicine
DX: R00.0 Tachycardia, unspecified (principal); E88.01 Alpha-1-antitrypsin deficiency; J43.2 Centrilobular emphysema; Z99.81 Dependence on supplemental oxygen; Z79.899 Other long term (current) drug therapy; Z79.82 Long term (current) use of aspirin; Z85.828 Personal history of other malignant neoplasm of skin; Z90.49 Acquired absence of other specified parts of digestive tract; Z90.89 Acquired absence of other organs
CPT/HCPCS: 36415; 71045; 80053; 83735; 83880; 84443; 84484; 85025; 85610; 93005; 96365; 99285; J0256

== ENCOUNTER 2023-10-10 12:28 | Outpatient (OUT) | payer MEDICARE, SELFPAY ==
[2023-10-10 13:19] LABS: Alanine Aminotransferase 52 U/L (16-63); Albumin Globulin Ratio 0.8; Albumin Level 3.9 g/dL (3.4-5.0); Alkaline Phosphatase 107 U/L (46-116); Aspartate Amino Transferase 35 U/L (15-37); Bilirubin Direct 0.1 mg/dL (0.0-0.2); Bilirubin Total 0.4 mg/dL (0.2-1.0); Globulin 4.7 g/dL; Total Protein 8.6 g/dL (6.4-8.2)
== END 2023-10-10 12:29 | disposition home or self-care (01) ==
LOC: LAB 12:28
PROVIDERS: Visit Provider Psychiatry & Neurology Neurology
DX: Z51.81 Encounter for therapeutic drug level monitoring (principal)
CPT/HCPCS: 36415; 80076

== ENCOUNTER 2023-10-25 09:50 | Outpatient (OUT) | payer MEDICARE, SELFPAY ==
--- OUTSIDE RECORDS SUMMARY | 2023-10-25 10:05 | XMS_ITS | CCD ---
Author Organization [facility] Care Team Providers Care Collision Technician Name Role Phone Samsa, Jeferson P Unavailable Unavailable Unavailable Samsa, Jeferson P Unavailable Daryl Kearns Unavailable Unavailable SAMSA ., JEFERSON Consulting Unavailable SAMSA ., JEFERSON Attending Unavailable SAMSA ., JEFERSON Admitting Unavailable HOUSE, DR RUDOLPH Primary Care Unavailable SAMSA ., JEFERSON Consulting Unavailable SAMSA ., JEFERSON Attending Unavailable SAMSA ., JEFERSON Admitting Unavailable HOUSE, DR RUDOLPH Primary Care Unavailable SAMSA ., JEFERSON Attending Unavailable SAMSA ., JEFERSON Consulting Unavailable HOUSE, DR RUDOLPH Primary Care Unavailable SAMSA ., JEFERSON Admitting Unavailable SAMSA ., JEFERSON Consulting Unavailable SAMSA ., JEFERSON Attending Unavailable SAMSA ., JEFERSON Admitting Unavailable HOUSE, DR RUDOLPH Primary Care Unavailable SAMSA ., JEFERSON Consulting Unavailable SAMSA ., JEFERSON Attending Unavailable SAMSA ., JEFERSON Admitting Unavailable HOUSE, DR RUDOLPH Primary Care Unavailable SAMSA ., JEFERSON Consulting Unavailable SAMSA ., JEFERSON Attending Unavailable SAMSA ., JEFERSON Admitting Unavailable HOUSE, DR RUDOLPH Primary Care Unavailable SAMSA ., JEFERSON Attending Unavailable SAMSA ., JEFERSON Admitting Unavailable SAMSA ., JEFERSON Consulting Unavailable HOUSE, DR RUDOLPH Primary Care Unavailable SAMSA ., JEFERSON Admitting Unavailable SAMSA ., JEFERSON Attending Unavailable SAMSA ., JEFERSON Consulting Unavailable HOUSE, DR RUDOLPH Primary Care Unavailable HOUSE, DR RUDOLPH Primary Care Unavailable LOWE, JOSE LUIS Admitting Unavailable LOWE, JOSE LUIS Consulting Unavailable LOWE, JOSE LUIS Attending Unavailable SAMSA ., JEFERSON Attending Unavailable HOUSE, DR RUDOLPH Primary Care Unavailable SAMSA ., JEFERSON Admitting Unavailable DR AISSATOU WORKMAN Consulting Unavailable SAMSA ., JEFERSON Consulting Unavailable SAMSA ., JEFERSON Attending Unavailable SAMSA ., JEFERSON Consulting Unavailable AMARA, DR RUDOLPH Primary Care Unavailable SAMSA ., JEFERSON Admitting Unavailable SAMSA ., JEFERSON Attending Unavailable SAMSA ., JEFERSON Consulting Unavailable HOUSE, DR RUDOLPH Primary Care Unavailable SAMSA ., JEFERSON Admitting Unavailable SAMSA ., JEFERSON Attending Unavailable SAMSA ., JEFERSON Consulting Unavailable HOUSE, DR RUDOLPH Primary Care Unavailable SAMSA ., JEFERSON Admitting Unavailable TATIANA VACA Attending Unavailable Medications Current Medications Medication Drug Class(es) Dates Sig (Normalized) Sig (Original) amoxicillin 875 mg / clavulanate 125 mg oral tablet (1 source) Penicillin-class Antibacterial Start: 03-14-2021 End: 03-24-2021 take 1 tablet by mouth every twelve hours amoxicillin-clavul anate 875 mg-125 mg oral tablet ; 1 tab(s) orally every 12 hours -.Meds to Beds Quantity: 22 Refills: 0 Ordered: 14-Mar-2021 DorothySa rikud Start: 14-Mar-2021 End: 24-Mar-2021 Generic Substitution Allowed Multivitamin preparation (1 source) take 1 tablet by mouth once daily Multiple Vitamins oral tablet ; 1 tab(s) orally once a day Quantity: 0 Refills: 0 Ordered: 28-Feb-2021 Frank, Adaku Generic Substitution Allowed Completed/Discontinued Medications Medication Drug Class(es) Dates Sig (Normalized) Sig (Original) [id number] 60 actuat albuterol 0.09 mg/actuat metered dose inhaler (9 sources) beta2-Adrenergic Agonist Start: 12-15-2020 take 1-2 puff(s) by mouth every four to six hours as needed Albuterol Sulfate HFA 108 (90 Base) MCG/ACT Inhalation Aerosol Solution INHALE 1 TO 2 PUFFS BY MOUTH EVERY 4 TO 6 HOURS NEEDED Quantity: 1 Refills: 1 Ordered: 15-Dec-2020 DO Start : 15-Dec-2020 Active take 2 puff(s) by in halation every four hours as needed albuterol 90 mcg/inh inhalation aerosol with adapter ; 2 puff(s) inhaled every 4 hours, As Needed Quantity: 0 Refills: 0 Ordered: 28-Feb-2021 Idika, Adaku Generic Substitution Allowed alpha 1-proteinase inhibitor, human 1 mg injection (9 sources) Human alpha-1 Proteinase Inhibitor Start: 12-15-2020 Prolastin-C 1000 MG/20ML Intravenous Solution weekly Quantity: 0 Refills: 0 Ordered: 15-Dec-2020 DO Start : 15-Dec-2020 Active aspirin 81 mg delayed release oral tablet (9 sources) Platelet Aggregation Inhibitor, Nonsteroidal Anti-inflammatory Drug Start: 12-15-2020 take 1 tablet by mouth once daily Aspirin 81 MG Oral Tablet Delayed Release TAKE 1 TABLET DAILY. Quantity: 0 Refills: 0 Ordered: 15-Dec-2020 DO Start : 15-Dec-2020 Active take 1 tablet by mouth once vernon y Aspirin Low Dose 81 mg oral tablet, chewable ; 1 orally once a day Quantity: 0 Refills: 0 Ordered: 28-Feb-2021 Osiel Marie Generic Substitution Allowed 30 actuat fluticasone furoate 0.1 mg/actuat / umeclidinium 0.0625 mg/actuat / vilanterol 0.025 mg/actuat dry powder inhaler (9 sources) Anticholinergic, Corticosteroid, beta2-Adrenergic Agonist Start: 12-15-2020 Trelegy Ellipta 100-62.5-25 MCG/INH Inhalation Aerosol Powder Breath Activated 1 inhalation daily. Rinse after. Quantity: 3 Refills: 3 Ordered: 15-Dec-2020 Salinas Ruiz MD Start : 15-Dec-2020 Active take 1 puff(s) by inhalation onc e daily Trelegy Ellipta 100 mcg-62.5 mcg-25 mcg/inh inhalation powder ; 1 puff(s) inhaled once a day Quantity: 0 Refills: 0 Ordered: 28-Feb-2021 Osiel Marie Generic Substitution Allowed levoFLOXacin 500 mg oral tablet (1 source) Quinolone Antimicrobial Start: 03-04-2021 take 1 tablet by mouth once daily levoFLOXacin 500 MG Oral Tablet Take 1 tablet daily Quantity: 7 Refills: 0 Ordered: 04-Mar-2021 Salinas Ruiz MD Start : 04-Mar-2021 Active Multiple Vitamins Oral Tablet (8 sources) Start: 12-15-2020 take 1 tablet by mouth once daily Multiple Vitamins Oral Tablet TAKE 1 TABLET DAILY. Quantity: 0 Refills: 0 Ordered: 15-Dec-2020 DO Start : 15-Dec-2020 Active Oxygen (8 sources) Start: 12-15-2020 Oxygen 4 liters Quantity: 0 Refills: 0 Ordered: 15-Dec-2020 DO Start : 15-Dec-2020 Active primidone 50 mg oral tablet (18 sources) Anti-epileptic Agent Start: 12-15-2020 take 1 tablet by mouth twice daily Primidone 250 MG Oral Tablet TAKE 1 TABLET TWICE DAILY. Quantity: 0 Refills: 0 Ordered: 15-Dec-2020 DO Start : 15-Dec-2020 Active Start: 12-15-2020 take 1 tablet by osbaldo th once daily at lunch Primidone 50 MG Oral Tablet once a day at lunch Quantity: 0 Refills: 0 Ordered: 15-Dec-2020 DO Start : 15-Dec-2020 Active take 1 tablet by osbaldo th every twelve hours primidone 250 mg oral tablet ; 1 orally every 12 hours Quantity: 0 Refills: 0 Ordered: 28-Feb-2021 Osiel Marie Generic Substitution Allowed vitamin e d-alpha 400 unt or al capsule (9 sources) Start: 12-15-2020 Vitamin E 400 UNIT Oral Capsule TAKE DIRECTED. Quantity: 0 Refills: 0 Ordered: 15-Dec-2020 DO Start : 15-Dec-2020 Active take 1 capsule by mouth once cailin ly vitamin E 400 intl units oral capsule ; 1 cap(s) orally once a day Quantity: 0 Refills: 0 Ordered: 28-Feb-2021 Osiel Marie Generic Substitution Allowed Problems Active Problems Problem Classification Problem Date Documented Date Episodic/Chronic Cardiac dysrhythmias (4 sources) Sick sinus syndrome; Translations: [Unspecified atrial flutter] Onset: 10-12-2023 Chronic Chronic obstructive pulmonary disease and bronchiectasis (10 sources) Pulmonary emphysema; Translations: [Other emphysema] Onset: 05-06-2022 Chronic Other hereditary and degenerative nervous system conditions (4 sources) Essential tremor; Translations: [ESSENTIAL TREMOR] Onset: 10-02-2022 Chronic Other lower respiratory disease (8 sources) Dyspnea; Translations: [Shortness of breath] Episodic Other lower respiratory disease (2 sources) Other forms of dyspnea; Translations: [Other forms of dyspnea] Onset: 10-12-2023 Episodic Other nutritional; endocrine; and metabolic disorders (9 sources) Tvnxe-9-cbkhqeihkzj deficiency; Translations: [Gcqrd-5-mijqljwkpuw deficiency] Onset: 12-06-2022 Chronic Other nutritional; endocrine; and metabolic disorders (4 sources) Jpizy-9-nloamyzlmyy deficiency; Translations: [EGVUI-5-TAVJWVAMNJF DEFICIENCY] Onset: 05-06-2022 Chronic Pneumonia (except that caused by tuberculosis or sexually transmitted disease) (7 sources) Pneumonia; Translations: [Pneumonia, organism unspecified] 03-13-2021 Episodic Pneumonia (except that caused by tuberculosis or sexually transmitted disease) (2 sources) Pneumonia (except that caused by tuberculosis or sexually transmitted disease) 03-11-2021 Comment on above: PNEUMONIA AND CHRONI C RESPIRATORY FAILURE Respiratory failure; insufficiency; arrest (adult) (8 sources) Chronic hypoxemic respiratory failure; Translations: [Chronic respiratory failure] Chronic Unclassified (1 source) DIAGNOSTIC EBUS 03-14-2021 Comment on above: DIAGNOSTIC EBUS Unclassified (1 source) Supraventricular tachycardia, unspecified; Translations: [Supraventricular tachycardia, unspecified] Onset: 10-12-2023 Past or Other Problems Problem Classification Problem Date Documented Date Episodic/Chronic Screening and history of mental health and substance abuse codes (4 sources) Personal history of nicotine dependence; Translations: [PERSONAL HISTORY OF NICOTINE DEPEND] Onset: 05-03-2022 Episodic Unclassified (1 source) Supraventricular tachycardia, unspecified; Translations: [Supraventricular tachycardia, unspecified] Onset: 10-12-2023 Results Test Name Value Interpretation Reference Range Facility 36on 10-15-2023 36 Per Melissa Santiago- I called him and got a event monitor report of heart rate in 150's- was trying to ask if he felt it Sunday at 9:30 pm- and to increase metoprolol to 50 mg bid if B/P is ok. Per Massiel Carreon- he felt nothing and bp 140/68 hr 50-60s. She spoke to patient's and he will make the increase. Normal [facility] Documentationon 10-15-2023 Documentation [id number] Christina Coley 1955 M Date Provider Department Center 10/15/2023 Miguel-TATIANA VACA [facility] Family History Problem Relation Age of Onset No Known Problems Mother No Known Problems Father Family Status - Relation Status Age at Mother Father Normal [facility] Office Visiton 10-12-2023 Follow-up visit [id number] Christina Coley 1955 M Date Provider Department Center 10/12/2023 TATIANA EPSTEIN CARD [facility] Family History Problem Relation Age of Onset No Known Problems Mother No Known Problems Father Family Status - Relation Status Age at Mother Father Level of Service:95512 NM OFFICE/OUTPATIENT NEW MODERATE MDM 45 MINUTES Normal [facility] PRIMIDONE / MYSOLINEon 10-03 Phenobarbital, Serum 5 ug/mL Critically low 15-40 [facility] Comment on above: Result Comment: Dete ction Limit = 3 Performed By: #### P RIMIDO #### [facility] [address] [place] [address] Dr. Lara Horne Primidone, Serum 11.1 ug/mL Normal 5.0-12.0 [facility] Comment on above: Result Comment: Dete ction Limit = 0.3 <0.3 indicates None Detected Performed By: #### P RIMIDO #### [facility] [address] [place] [address] Dr. Lara Horne LIVER PROFILEon 10-02-2022 Albumin [Mass/Vol] 4.2 g/dL Normal 3.4-5.0 [facility] Comment on above: Performed By: #### L IVER #### [facility] [address] [place] [address] Dr. Lara Horne Albumin/Globulin [Mass ratio] 1.2 {ratio} Normal [facility] Comment on above: Performed By: #### L IVER #### [facility] [address] [place] [address] Dr. Lara Horne ALP [Catalytic activity/Vol] 131 U/L Critically high 46-116 [facility] Comment on above: Performed By: #### L IVER #### [facility] [address] [place] [address] Dr. Lara Horne ALT [Catalytic activity/Vol] 55 U/L Normal 16-63 [facility] Comment on above: Performed By: #### L IVER #### [facility] [address] [place] [address] Dr. Lara Horne AST [Catalytic activity/Vol] 25 U/L Normal 15-37 [facility] Comment on above: Performed By: #### L IVER #### [facility] [address] [address] [address] Lara Horne BILI, CONJUGATED 0.1 mg/dL Normal 0.0-0.2 [facility] Comment on above: Performed By: #### L IVER #### [facility] [address] [address] [address] Lara Horne Bilirubin [Mass/Vol] 0.3 mg/dL Normal 0.2-1.0 [facility] Comment on above: Performed By: #### L IVER #### [facility] [address] [address] [address] Lara Horne Globulin (S) [Mass/Vol] 3.5 g/dL Normal [facility] Comment on above: Performed By: #### L IVER #### [facility] [address] [address] [address] Lara Horne Protein [Mass/Vol] 7.7 g/dL Normal 6.4-8.2 [facility] Comment on above: Performed By: #### L IVER #### [facility] [address] [address] [address] LUNG CANCER SCREENINGon 0 05-03-2022 CT LUNG CANCER SCREENING EXAMINATION: CT LUNG CANCER SCREENING HISTORY: Nicotine dependence COMPARISON: CT chest 05/18/2020 TECHNIQUE: Axial, Coronal, and Sagittal images were created without the administration of IV contrast material. Dose reduction techniques were achieved by using automated exposure control and/or adjustment of mA and/or kV according to patient size and/or use of iterative reconstruction technique. FINDINGS: LUNGS: Several endobronchial stents within left lower lobe. Scattered groundglass opacities throughout the lungs and mild emphysematous changes. No suspicious nodules. PLEURA: No mass, effusion, or pneumothorax. VASCULATURE: No abnormality. ASHIA: No mass or pathologic adenopathy. MEDIASTINUM: No mass or pathologic adenopathy. CARDIAC: No enlargement, pericardial thickening, or significant calcification. AORTA: No aneurysm or dissection. CHEST WALL: No mass or axillary adenopathy BONES: No bone lesion or fracture. LIMITED ABDOMEN: No suspicious findings. Limited images of the upper abdomen. OTHER: Negative. IMPRESSION: 1. Lung-RADS Category 1 Negative. No nodules and definitely benign nodules. Continue annual screening with LDCT in 12 months. 2. Interval placement of endobronchial stents within left lower lobe. Electronically authenticated by: AISSATOU WORKMAN Date: 2022-05-03 14:06 Normal [facility] Blood Pressure Cuff Sizeon 0 05-04-2021 Blood Pressure Cuff Size Adult [facility] Work Phone: Follow Up (Pulmonary Medicin e)on 05-04-2021 Follow Up (Pulmonary Medicine) Diagnoses/Problems Emphysema/COPD (492.8) (J43.9) Chronic respiratory failure with hypoxia (518.83,799.02) (J96.11) Fbggb-6-hbroddkxixm deficiency (273.4) (E88.01) Orders Continue: Trelegy Ellipta 100-62.5-25 MCG/INH Inhalation Aerosol Powder Breath Activated; 1 inhalation daily. Rinse after Rx By: Salinas Ruiz; Dispense: 0 Days ; #:3 X 28 Each Pack; Refill: 3;For: Emphysema/COPD; KRISTOPHER = N; Record; Last Updated By: Margaret Hernández; 05/04/2021 1:47:54 PM Continue: Albuterol Sulfate HFA 108 (90 Base) MCG/ACT Inhalation Aerosol Solution; INHALE 1 TO 2 PUFFS BY MOUTH EVERY 4 TO 6 HOURS NEEDED Dispense: 0 Days ; #:1 X 6.7 GM Inhaler; Refill: 1; KRISTOPHER = N; Record; Last Updated By: Margaret Hernández; 05/04/2021 1:47:54 PM Continue: Aspirin 81 MG Oral Tablet Delayed Release; TAKE 1 TABLET DAILY Dispense: 0 Days ; #: Sufficient Tablet; Refill: 0; KRISTOPHER = N; Record; Last Updated By: Margaret Hernández; 05/04/2021 1:47:54 PM Continue: Multiple Vitamins Oral Tablet; TAKE 1 TABLET DAILY Dispense: 0 Days ; #: Sufficient Tablet; Refill: 0; KRISTOPHER = N; Record; Last Updated By: Margaret Hernández; 05/04/2021 1:47:54 PM Continue: Oxygen; 4 liters Dispense: 0 Days ; #: Sufficient Each; Refill: 0; KRISTOPHER = N; Record; Last Updated By: Margaret Hernández; 05/04/2021 1:47:54 PM Continue: Primidone 250 MG Oral Tablet; TAKE 1 TABLET TWICE DAILY Dispense: 0 Days ; #: Sufficient Tablet; Refill: 0; KRISTOPHER = N; Record; Last Updated By: Margaret Hernández; 05/04/2021 1:47:54 PM Continue: Primidone 50 MG Oral Tablet; once a day at lunch Dispense: 0 Days ; #: Sufficient Tablet; Refill: 0; KRISTOPHER = N; Record; Last Updated By: Margaret Hernández; 05/04/2021 1:47:54 PM Continue: Prolastin-C 1000 MG/20ML Intravenous Solution; weekly Dispense: 0 Days ; #: Sufficient Each; Refill: 0; KRISTOPHER = N; Record; Last Updated By: Margaret Hernández; 05/04/2021 1:47:54 PM Continue: Vitamin E 400 UNIT Oral Capsule; TAKE DIRECTED Dispense: 0 Days ; #: Sufficient Capsule; Refill: 0; KRISTOPHER = N; Record; Last Updated By: Margaret Hernández; 05/04/2021 1:47:54 PM Patient Discussion/Summary 1. Emphysema / Chronic hypoxemic respiratory failure - s/p BLVR to LLL, imaging shows decrease in size of left lung and PFTs with decreased RV from 182% to 156%, 6MW distance increased from 274 m to 320 m -Continue Trelegy daily -Albuterol as needed -Continue pulmonary rehab exercises 2. 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 Reason for Visit: Emphysema, s/p BLVR. History of Present Illness May 04, 2021 Mr. COLEY is a 66 year old male former smoker with emphysema and chronic hypoxemic respiratory failure who presents today for follow-up after BLVR. Mr. Valles underwent BLVR with valve placement in the LLL. He was admitted approximately 1 week later with pneumonia. After treatment, he has been doing much better. Concerns and questions regarding the booster shot for COVID-19 vaccine Has f/u with Dr Ruiz Pt states he has been feeling generally well - reports that he has been able to increase his activity level. He still has VANESSA, but less so. denies fevers, chills, or nights sweats +VANESSA denies shortness of breath at rest mMRC Dyspnea Score = 1 +cough with occasional sputum production +occasional wheezing denies hemoptysis, or stridor denies chest pain, orthopnea, or lower extremity edema denies nausea, vomiting, abdominal pain, odynophagia, dysphagia, heartburn, anorexia, or weight loss denies sinus congestion, post-nasal drip, epistaxis, or hoarseness of voice Since the last visit there have been no changes to the past medical history, past surgical history, social history, or family history. Inhalers / Nebulized medications / Oxygen: Trelegy Albuterol Oxygen Immunizations: Influenza COVID-19 - 11/16/20 Pneumovax - April 2020 Prevnar Social History: Tobacco: Former smoker - quit 2015, smoked 1-2 ppd prior Imaging history: (I have personally reviewed the imaging below) CT chest 12/15/2020 -> severe emphysema, [address] chest 05/04/2021 -> severe emphysema, decreased volume in left lung Post-LBVR StratX analysis suggests possible leak around valve, but total lung volume decreased by 1.1 L (15.2%) PFTs: 05/18/2020 Spirometry: FVC = 4.04 L (99% predicted) FEV1 = 1.23 L (40% predicted) FEV1/FVC = 30% DLCO: 43% predicted Lung volumes: TLC = 130% predicted, RV = 182% predicted, RV/TLC = 48% 05/04/2021 Spirometry: FVC = 4.27 L (109% predicted) FEV1 = 1.72 L (57% predicted) FEV1/FVC = 40% (predicted lower limit = 64%) DLCO: 55% predicted Lung volumes: TLC = 121% predicted, RV = 156% predicted, RV/TLC = 45% 6MWT: 05/18/2020 - RA -> 4L/min SpO2 93% -> 82% (placed on oxygen) HR 92 -> 122 [place] 0.5 -> 2 Actual meters walked 274 m / predicted lower limit 308 m 05/04/2021 - 4 L/min SpO2 96% -> 89% HR 82 -> 116 [place] 0 -> (more content not included)... Normal [facility] TH CT CHEST WO CONTRASTon TH CT CHEST WO CONTRAST Patient Name: BROCK COLEY STUDY: CT CHEST WO CONTRAST; 05/04/2021 1:04 pm INDICATION: COPD, SOB. COMPARISON: CT dated 03/11/2021 ACCESSION NUMBER(S): [id number] ORDERING CLINICIAN: SALINAS RUIZ TECHNIQUE: Helical data acquisition of the chest was obtained without IV contrast material. Images were reformatted in axial, coronal, and sagittal planes. FINDINGS: LUNGS AND AIRWAYS: The trachea and central airways are patent. No endobronchial lesion. Endobronchial valves are again seen in the left lower lobe segmental bronchi. There is a background of severe diffuse emphysema. The previously seen multifocal consolidative opacity in the left lung has resolved in the current study. There is also interval resolution of the previously seen left pleural effusion. An area of airspace opacity in the posterior aspect of the right upper lobe along the right major fissure best seen in image 102/329. MEDIASTINUM AND ASHIA, LOWER NECK AND AXILLA: The visualized thyroid gland is within normal limits. A few slightly prominent lymph nodes are identified in the mediastinum including a 10 mm prevascular lymph node in image 93/329, nonspecific and likely reactive. Esophagus appears within normal limits as seen. HEART AND VESSELS: The thoracic aorta is of normal course and caliber with mild vascular calcifications. Main pulmonary artery and its branches are normal in caliber. There is mild coronary artery calcification. The study is not optimized for evaluation of coronary arteries. The cardiac chambers are not enlarged. No evidence of pericardial effusion. UPPER ABDOMEN: Status post cholecystectomy. CHEST WALL AND OSSEOUS STRUCTURES: There are no suspicious osseous lesions. IMPRESSION: 1. There has been interval resolution of the previously seen extensive consolidative opacity in the left lung. Interval resolution of left pleural effusion. 2. Redemonstration of severe underlying emphysema with multiple left lower lobe endobronchial valves. 3. An area of faint opacity in the posterior aspect of the right upper lobe along the right major fissure which is new compared to prior study and may be due to residual inflammatory/infectious process or an area of atelectasis. 4. A few scattered slightly prominent lymph nodes in the mediastinum, stable and likely reactive. Electronically signed by: CAMERON SALMERON MD Normal [facility] Daily Progress Note-Medicine on 03-15-2021 Daily Progress Note-Medicine Service: Medicine Subjective Data: BROCK COLEY is a 66 year old Male who is Hospital Day # 5. Overnight Events: Patient had an uneventful night. Additional Information: feels well Objective Data: Objective Information: T PRBPSpO2 [id number]% Date/Time03/15 4: 4: 4:5003/15 4:5003/15 4:50 Range(36.6C - 37C ) (92 - 98 ) (18 - 18 ) (122 - 151 )/ (74 - 79 ) (93% - 95% ) As of 15-Mar-2021 08:19:00, patient is on 4 L/min of oxygen via nasal cannula. Highest temp of 37 C was recorded at 03/14 22:14 Pain reported at 03/14 23:48: 0 = None Physical Exam by System: Constitutional: NAD, alert sitting up in chair, heartrate within normal limits, rhythm is regular, fair air exchange with rare wheeze, bs+ NTND, no rebound/guarding/rigidity , trace le edema Medication: Medications: ANTI-INFECTIVES: 1. Amoxicillin 875 mg - Clavulanate 125 m tablet(s) Oral Every 12 Hours CENTRAL NERVOUS SYSTEM AGENTS: 1. Aspirin Chewable: 81 mg Oral Daily 2. Primidone: 250 mg Oral 2 Times a Day 3. Primidone: 50 mg Oral Daily 1800 COAGULATION MODIFIERS: 1. Enoxaparin SubCutaneous: 40 mg SubCutaneous Every 24 Hours NUTRITIONAL PRODUCTS: 1. Vitamin B Complex with C: 1 each Oral Daily RESPIRATORY AGENTS: 1. Albuterol 2.5 mg/ 3 mL Nebulizer Soln: 3 mL Inhalation Every 4 Hours PRN 2. Fluticasone 250 microgram -Salmeterol 50 microgram/ Inh: 1 inhalation Inhalation Every 12 Hours 3. Tiotropium 18 micrograms/ Inhalation: 1 inhalation Inhalation Every 24 Hours 4. Alpha 1-Proteinase Inhibitor (HUMAN) IV Piggy Back: 1000 mg IntraVenous Piggyback Every 7 Days Recent Lab Results: Results: I have reviewed these laboratory results: Complete Blood Count + Differential 14-Mar-2021 09:46:00 ResultValue White Blood Cell Count 10.1 Nucleated Erythrocyte Count 0.0 Red Blood Cell Count 3.77 L HGB 12.3 L HCT 36.0 L MCV 95 MCHC 34.2 PLT 405 RDW-CV 12.0 Neutrophil % 67.1 Immature Granulocytes % 0.5 Lymphocyte % 22.7 Monocyte % 7.3 Eosinophil % 1.9 Basophil % 0.5 Neutrophil Count 6.79 Lymphocyte Count 2.29 Monocyte Count 0.74 Eosinophil Count 0.19 Basophil Count 0.05 Basic Metabolic Panel 14-Mar-2021 09:46:00 ResultValue Glucose, Serum 151 H NA 135 L K 4.6 CL 99 Bicarbonate, Serum 25 Anion Gap, Serum 16 BUN 13 CREAT 0.83 GFR-Non >60 GFR- >60 Calcium, Serum 9.0 C Reactive Protein, Serum 14-Mar-2021 09:46:00 ResultValue C Reactive Protein, Serum 10.63 A Radiology Results: Results: Impression: 1. No significant change in course aside airspace opacities. Right peribronchial thickening/atelectasis. Status post left lower lobe endobronchial valve placement. TranscribedBy: Interface, User Electronically Signed By: Ollie HAGER CHAPMAN 03/14/21 15:3 Xray Chest 1 View [Mar 14 2021 3:34PM] Assessment and Plan: Code Status: Code StatusFull Code Assessment: -complete augmentin 14 day course per pulmonary -continue on oxygen. goal sats >90% -resume home medications including trelegy on discharge -plan for discharge and will defer his prolastin to home infusion. planning for Sunday per -repeat chest x-ray in 4 weeks with PCP follow up per pulmonary requests Electronic Signatures: Daryl Kearns) (Signed 15-Mar-2021 15:49) Authored: Service, Subjective Data, Objective Data, Assessment and Plan, Note Completion Last Updated: 15-Mar-2021 15:49 by Daryl Kearns) Normal [facility] BASIC METABOLIC PANELon - Anion gap [Moles/Vol] 16 mmol/L Normal - [facility] Comment on above: Performed By: #### B MP ####[id number] [place] [address] Calcium [Mass/Vol] 9.0 mg/dL Normal 8.6 - 10.6 [facility] Comment on above: Performed By: #### B MP ####[id number] [place] [address] Chloride [Moles/Vol] 99 mmol/L Normal 98 - 107 [facility] Comment on above: Performed By: #### B MP ####[id number] [place] [address] Creatinine [Mass/Vol] 0.83 mg/dL Normal 0.50 - 1.30 [facility] Comment on above: Performed By: #### B MP ####[id number] [place] [address] GFR- AM. >60 Normal >60 [facility] Comment on above: Result Comment: CALC ULATIONS OF ESTIMATED GFR ARE PERFORMED USING THE MDRD STUDY EQUATION FOR THE IDMS-TRACEABLE CREATININE METHODS. CLIN CHEM 2007;53:766-72 Performed By: #### B MP ####[id number] [place] [address] GFR-NON AM. >60 Normal >60 [facility] Comment on above: Performed By: #### B MP ####[id number] [place] [address] Glucose [Mass/Vol] 151 mg/dL High 74 - 99 [facility] Comment on above: Performed By: #### B MP ####[id number] [place] [address] HCO3 (Bld) [Moles/Vol] 25 mmol/L Normal 21 - 32 [facility] Comment on above: Performed By: #### B MP ####[id number] [place] [address] Potassium [Moles/Vol] 4.6 mmol/L Normal 3.5 - 5.3 [facility] Comment on above: Performed By: #### B MP ####[id number] [place] [address] Sodium [Moles/Vol] 135 mmol/L Low 136 - 145 [facility] Comment on above: Performed By: #### B MP ####[id number] [place] [address] Urea nitrogen [Mass/Vol] 13 mg/dL Normal 6 - 23 [facility] Comment on above: Performed By: #### B MP ####[id number] [place] [address] C-REACTIVE PROTEINon 021 C-REACTIVE PROTEIN 10.63 mg/dL Abnormal [facility] Comment on above: Result Comment: REF VALUE < 1.00 Performed By: #### C BCDF #### [facility] [address] [place] [address] CBC AND DIFFERENTIALon 03-14 % AUTOMATED IMMATURE GRAN 0.5 % Normal 0.0 - 0.9 [facility] Comment on above: Result Comment: Suellen ture Granulocyte Count (IG) includes promyelocytes, myelocytes and metamyelocytes but does not include bands. Percent differential counts (%) should be interpreted in the context of the absolute cell counts (cells/L). Performed By: #### C BCDF #### [facility] [address] [place] [address] Basophils (Bld) [#/Vol] 0.05 10*3/uL Normal 0.00 - 0.10 [facility] Comment on above: Performed By: #### C BCDF #### [facility] [address] [place] [address] Basophils/100 WBC (Bld) 0.5 % Normal 0.0 - 2.0 [facility] Comment on above: Performed By: #### C BCDF #### [facility] [address] [place] [address] Eosinophils (Bld) [#/Vol] 0.19 10*3/uL Normal 0.00 - 0.70 [facility] Comment on above: Performed By: #### C BCDF #### [facility] [address] [place] [address] Eosinophils/100 WBC (Bld) 1.9 % Normal 0.0 - 6.0 [facility] Comment on above: Performed By: #### C BCDF #### [facility] [address] [place] [address] Erythrocyte distribution width (RBC) [Ratio] 12.0 % Normal 11.5 - 14.5 [facility] Comment on above: Performed By: #### C BCDF #### [facility] [address] [place] [address] Hematocrit (Bld) [Volume fraction] 36.0 % Low 41.0 - 52.0 [facility] Comment on above: Performed By: #### C BCDF #### [facility] [address] [place] [address] Hemoglobin (Bld) [Mass/Vol] 12.3 g/dL Low 13.5 - 17.5 [facility] Comment on above: Performed By: #### C BCDF #### [facility] [address] [place] [address] Lymphocytes (Bld) [#/Vol] 2.29 10*3/uL Normal 1.20 - 4.80 [facility] Comment on above: Performed By: #### C BCDF #### [facility] [address] [place] [address] Lymphocytes/100 WBC (Bld) 22.7 % Normal 13.0 - 44.0 [facility] Comment on above: Performed By: #### C BCDF #### [facility] [address] [place] [address] MCHC (RBC) [Mass/Vol] 34.2 g/dL Normal 32.0 - 36.0 [facility] Comment on above: Performed By: #### C BCDF #### [facility] [address] [place] [address] MCV (RBC) [Entitic vol] 95 fL Normal 80 - 100 [facility] Comment on above: Performed By: #### C BCDF #### [facility] [address] [place] [address] Monocytes (Bld) [#/Vol] 0.74 10*3/uL Normal 0.10 - 1.00 [facility] Comment on above: Performed By: #### C BCDF #### [facility] [address] [place] [address] Monocytes/100 WBC (Bld) 7.3 % Normal 2.0 - 10.0 [facility] Comment on above: Performed By: #### C BCDF #### [facility] [address] [place] [address] Neutrophils (Bld) [#/Vol] 6.79 10*3/uL Normal 1.20 - 7.70 [facility] Comment on above: Performed By: #### C BCDF #### [facility] [address] [place] [address] Neutrophils/100 WBC (Bld) 67.1 % Normal 40.0 - 80.0 [facility] Comment on above: Performed By: #### C BCDF #### [facility] [address] [place] [address] NUCLEATED RBC 0.0 /100 WBC Normal 0.0-0.0 [facility] Comment on above: Performed By: #### C BCDF #### [facility] [address] [place] [address] Platelets (Bld) [#/Vol] 405 10*3/uL Normal 150 - 450 [facility] Comment on above: Performed By: #### C BCDF #### [facility] [address] [place] [address] RBC 3.77 x10E12/L Low 4.50 - 5.90 [facility] Comment on above: Performed By: #### C BCDF #### [facility] [address] [place] [address] WBC (Bld) [#/Vol] 10.1 10*3/uL Normal 4.4 - 11.3 [facility] Comment on above: Performed By: #### C BCDF #### [facility] [address] [place] [address] Daily Progress Note-Pulmonol bonifacio 03-14-2021 Daily Progress Note-Pulmonology Service: Pulmonology Subjective Data: BROCK COLEY is a 66 year old Male who is Hospital Day # 4. Additional Information: Pt was seen sitting up in a chair at bed side this am with his . No new complaints. Discussed working diagnosis of PNA and reassured him that we do not believe his valves are infected. He did ask about D/C home and planning. We deferred to primary team but patient is ready to go from pulm standpoint Objective Data: Objective Information: T PRBPSpO2 [id number]/7996% Date/Time03/14 5: 5: 5: 5: 5:23 Range(35.7C - 36.8C ) (81 - 92 ) (18 - 18 ) (103 - 160 )/ (62 - 79 ) (94% - 96% ) As of 14-Mar-2021 10:19:00, patient is on 4 L/min of oxygen via nasal cannula. Physical Exam by System: Constitutional: Well developed, awake/alert/oriented x3, no distress, alert and cooperative Eyes: EOMI, clear sclera ENMT: mucous membranes moist, no apparent injury, no lesions seen Head/Neck: Neck supple, no apparent injury Respiratory/Thorax: Patent airways, CTA Cardiovascular: Regular, rate and rhythm, no murmurs Gastrointestinal: Nondistended, soft, non-tender Musculoskeletal: ROM intact, no joint swelling, normal strength Extremities: normal extremities, no edema, contusions or wounds, no clubbing Neurological: alert and oriented x3, intact senses, motor Psychological: Appropriate mood and behavior Skin: Warm and dry, no lesions, no rashes Medication: Medications: Continuous Medications ------- No continuous medications are active Scheduled Medications ------- 1. Aspirin Chewable: 81 mg Oral Daily 2. Enoxaparin SubCutaneous: 40 mg SubCutaneous Every 24 Hours 3. Fluticasone 250 microgram -Salmeterol 50 microgram/ Inh: 1 inhalation Inhalation Every 12 Hours 4. Piperacillin - Tazobactam 4.5 gram/Iso-osmotic 100 mL Premix IVPB: 100 mL IntraVenous Piggyback Every 6 Hours 5. Primidone: 250 mg Oral 2 Times a Day 6. Primidone: 50 mg Oral Daily 1800 7. Tiotropium 18 micrograms/ Inhalation: 1 inhalation Inhalation Every 24 Hours 8. Vitamin B Complex with C: 1 each Oral Daily PRN Medications ------- 1. Albuterol 2.5 mg/ 3 mL Nebulizer Soln: 3 mL Inhalation Every 4 Hours Recent Lab Results: Results: CBC: 03/14/2021 09:46 \ Hgb / \ 12.3 L / WBC Plt 10.1 405 / Hct \ / 36.0 L \ RBC: 3.77 L MCV: 95 Neutrophil %: 67.1 BMP: 03/14/2021 09:46 NA+ Cl- BUN / 135 L 99 13 / ------- Glucose -- 151 H K+ HCO3- Creat \ 4.6 25 0.83 \ Calcium : 9.0 Anion Gap : 16 Radiology Results: Results: Impression: Ground glass opacities left lung suggesting acute pneumonia. Atelectasis and volume loss left lower lobe with small left pleural effusion. Mucous plugging left lower lobe. Underlying emphysematous changes.. Mildly enlarged mediastinal and left hilar lymph nodes. Signed by Radha Malcolm DO CT Chest without Contrast [Mar 11 2021 1:25PM] Impression: 1. Stable airspace opacities in the left upper/mid lung duckworth consistent with the known multifocal pneumonia. 2. Persistent left pleural effusion and left basilar atelectasis. Remaining changes of volume loss in the left hemithorax are stable. 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 Had LLL EBV placement for lung volume reduction. Pt able to be discharged on home o2 (4L). Since procedure, pt with cough, fevers, had appointment with CT chest which showed pneumonia. Pt was admitted and treated with IV ATBx (Pip-tazo) and work up was performed. Cultures have shown NGTD. Atypical work up negative. Pt is amenable for D/C home on continued course of PO ATBx for PNA. #Acute , left upper lobe-s/p failure to control fevers on levaquin vs possible re-expansion injury #emphysema with severe copd s/p LLL EBV placement for LVRS #Chronic hypoxic respiratory failure #Productive Cough Recommendations - Can change Pip-tazo to PO Augmentin for a total of 14 days. - OP Follow up with [facility] [employer] [facility] in [facility] in 4 weeks to document resolution of PNA with CXR. - Restart Home trelegy on D/c - Continue oxygen via nasal cannula achieve o2 sat >90% - Defer scheduling of weekly prolastin shot to primary team. Seen and d/w Dr Espitia Pulmonary to sign off from here. Please call with any further questions or concerns. Mili Aguirre MD Pulmonary- Critical Care Fellow PGY-6 Pager [phone] [place] Attestation: Note Completion: I am a: Resident/Fellow Attending AttestationI saw and evaluated the patient. I personally obtained the (more content not included)... Normal [facility] Order Reconciliationon 03-14 Order Reconciliation Page 1 Discharge Reconciliation Document Reconciliation Type: Discharge requested on behalf of Max Champion (Resident) done by Max Champion (Resident)) Discharge - Reconciliation: 14-Mar-2021 20:41 by: Max Champion (Resident)) Home Medications EnteredHOME MEDICATIONS AT DISCHARGE DateReconciliation Comment/ Additional Information albuterol 90 mcg/inh inhalation aerosol with adapter 2 puff(s) inhaled every 4 hours, As Needed 28-Feb-2021 18:37 albuterol 90 mcg/inh inhalation aerosol with adapter 2 puff(s) inhaled every 4 hours, As Needed 28-Feb-2021 18:37 albuterol 90 mcg/inh inhalation aerosol with adapter is continued as albuterol 90 mcg/inh inhalation aerosol with adapter Aspirin Low Dose 81 mg oral tablet, chewable 1 orally once a day 28-Feb-2021 18:45 Aspirin Low Dose 81 mg oral tablet, chewable 1 orally once a day 28-Feb-2021 18:45 Aspirin Low Dose 81 mg oral tablet, chewable is continued as Aspirin Low Dose 81 mg oral tablet, chewable Multiple Vitamins oral tablet 1 tab(s) orally once a day 28-Feb-2021 18:45 Multiple Vitamins oral tablet 1 tab(s) orally once a day 28-Feb-2021 18:45 Multiple Vitamins oral tablet is continued as Multiple Vitamins oral tablet primidone 250 mg oral tablet 1 orally every 12 hours 28-Feb-2021 18:43 primidone 250 mg oral tablet 1 orally every 12 hours 28-Feb-2021 18:43 primidone 250 mg oral tablet is continued as primidone 250 mg oral tablet primidone 50 mg oral tablet 1 orally once a day (in the afternoon) 28-Feb-2021 18:44 primidone 50 mg oral tablet 1 orally once a day (in the afternoon) 28-Feb-2021 18:44 primidone 50 mg oral tablet is continued as primidone 50 mg oral tablet Prolastin-C intravenous solution 1000 milligram(s) / 20mL intravenous weekly on Tuesdays 18:41 Prolastin-C intravenous solution 1000 milligram(s) / 20mL intravenous weekly on Tuesdays 18:41 Prolastin-C intravenous solution is continued as Prolastin-C intravenous solution Trelegy Ellipta 100 mcg-62.5 mcg-25 mcg/inh inhalation powder 1 puff(s) inhaled once a day 28-Feb-2021 18:47 Trelegy Ellipta 100 mcg-62.5 mcg-25 mcg/inh inhalation powder 1 puff(s) inhaled once a day 28-Feb-2021 18:47 Trelegy Ellipta 100 mcg-62.5 mcg-25 mcg/inh inhalation powder is continued as Trelegy Ellipta 100 mcg-62.5 mcg-25 mcg/inh inhalation powder vitamin E 400 intl units oral capsule 1 cap(s) orally once a day 28-Feb-2021 18:46 vitamin E 400 intl units oral capsule 1 cap(s) orally once a day 28-Feb-2021 18:46 vitamin E 400 intl units oral capsule is continued as vitamin E 400 intl units oral capsule Current OrdersDateHOME MEDICATIONS AT DISCHARGE DateReconciliation Comment/ Additional Information Albuterol 2.5 mg/ 3 mL Nebulizer Soln (PROVENTIL)DOSE = 3 mL Inhalation Every 4 Hours via Nebulizer, PRN Shortness of BreathClinician Notes: home regimen 11-Mar-2021 18:05 Albuterol 2.5 mg/ 3 mL Nebulizer Soln is not required Alpha 1-Proteinase Inhibitor (HUMAN) IV Piggy Back in IV (Total Volume) 50 mL (GLASSIA)DOSE = 1,000 mg Every 7 DaysRecommended Infusion Time: 15 minute(s)Clinician Notes: Weekly on last dose was 03/08, next dose 03/15Notes from Pharmacy: A 11-Mar-2021 16:07 Alpha 1-Proteinase Inhibitor (HUMAN) IV Piggy Back is not required Amoxicillin 875 mg - Clavulanate 125 mg Tablet (AUGMENTIN)DOSE = 1 tablet(s) Oral Every 12 Hours 14-Mar-2021 20:40 amoxicillin-clavulanate 875 mg-125 mg oral tablet 1 tab(s) orally every 12 hours -.Meds to Beds 14-Mar-2021 20:41 Prescription is created for amoxicillin-clavulanate 875 mg-125 mg oral tablet Aspirin Chewable Tablet, ChewableDOSE = 81 mg Oral Daily 11-Mar-2021 16:07 Aspirin Chewable is not required Enoxaparin SubCutaneous (LOVENOX)DOSE = 40 mg SubCutaneous Every 24 Hours 11-Mar-2021 17:13 Enoxaparin SubCutaneous is not required Fluticasone 250 microgram -Salmeterol 50 microgram/ Inh Powder (ADVAIR DISKUS)DOSE = 1 inhalation Every 12 HoursNotes from Pharmacy: SHADY 11-Mar-2021 16:09 Fluticasone 250 microgram -Salmeterol 50 microgram/ Inh is not required Primidone Tablet (MYSOLINE)DOSE = 250 mg Oral 2 Times a Day 11-Mar-2021 16:07 Primidone is not required Primidone Tablet (MYSOLINE)DOSE = 50 mg Oral Daily 1800 11-Mar-2021 16:07 Primidone is not required Tiotropium 18 micrograms/ Inhalation Capsule (SPIRIVA)DOSE = 1 inhalation Every 24 Hours 11-Mar-2021 16:09 Tiotropium 18 micrograms/ Inhalation is not required Vitamin B Complex with C EachDOSE = 1 each Oral Daily 11-Mar-2021 16:07 Vitamin B Complex with C is not required All Active Home Medications at time of Discharge Reconciliation: 14-Mar-2021 20:41 albuterol 90 mcg/inh inhalation aerosol with adapter 2 puff(s) inhaled every 4 hours, As Needed amoxicillin-clavulanate 875 mg-125 mg oral tablet 1 tab(s) orally every 12 hours -.Meds to Beds Aspirin Low Dose 81 mg oral tablet, chewable 1 orally once a day Multiple Aleksandra (more content not included)... Normal [facility] TH CHEST 1 VIEWon 03-14-2021 TH CHEST 1 VIEW Patient Name: BROCK COLEY STUDY: CHEST 1 VIEW; 03/14/2021 6:18 am INDICATION: COPD and PNA. COMPARISON: None. ACCESSION NUMBER(S): [id number] ORDERING CLINICIAN: MAX CHAMPION FINDINGS: CARDIOMEDIASTINAL SILHOUETTE: Cardiomediastinal silhouette is normal in size and configuration. The patient is status post multiple endobronchial valve placement overlying the airways of the left lower lobe LUNGS: Extensive left perihilar airspace disease and correlate with worsening pneumonia/aspiration. Pulmonary hyperinflation with the right lung ABDOMEN: No remarkable upper abdominal findings. BONES: No acute osseous changes. IMPRESSION: 1. No significant change in course aside airspace opacities. Right peribronchial thickening/atelectasis. Status post left lower lobe endobronchial valve placement. Electronically signed by: Ollie HAGER MD Normal [facility] VANCOMYCIN,TROUGHon 03-14-20 21 VANCOMYCIN,TROUGH Canceled Normal [facility] [place] Comment on above: Order Comment: TEST VANCOMYCIN,TROUGH WAS CANCELLED, 03/13/2021 23:56 DUPLICATE ORDER. Performed By: #### C BC #### [facility] [address] [place] [address] CBC AND DIFFERENTIALon 03-13 % AUTOMATED IMMATURE GRAN 0.4 % Normal 0.0 - 0.9 [facility] Comment on above: Result Comment: Suellen ture Granulocyte Count (IG) includes promyelocytes, myelocytes and metamyelocytes but does not include bands. Percent differential counts (%) should be interpreted in the context of the absolute cell counts (cells/L). Performed By: #### C BCDF #### [facility] [address] [place] [address] Basophils (Bld) [#/Vol] 0.05 10*3/uL Normal 0.00 - 0.10 [facility] Comment on above: Performed By: #### C BCDF #### [facility] [address] [place] [address] Basophils/100 WBC (Bld) 0.4 % Normal 0.0 - 2.0 [facility] Comment on above: Performed By: #### C BCDF #### [facility] [address] [place] [address] Eosinophils (Bld) [#/Vol] 0.22 10*3/uL Normal 0.00 - 0.70 [facility] Comment on above: Performed By: #### C BCDF #### [facility] [address] [place] [address] Eosinophils/100 WBC (Bld) 2.0 % Normal 0.0 - 6.0 [facility] Comment on above: Performed By: #### C BCDF #### [facility] [address] [place] [address] Erythrocyte distribution width (RBC) [Ratio] 12.0 % Normal 11.5 - 14.5 [facility] Comment on above: Performed By: #### C BCDF #### [facility] [address] [place] [address] Hematocrit (Bld) [Volume fraction] 39.5 % Low 41.0 - 52.0 [facility] Comment on above: Performed By: #### C BCDF #### [facility] [address] [place] [address] Hemoglobin (Bld) [Mass/Vol] 13.4 g/dL Low 13.5 - 17.5 [facility] Comment on above: Performed By: #### C BCDF #### [facility] [address] [place] [address] Lymphocytes (Bld) [#/Vol] 3.15 10*3/uL Normal 1.20 - 4.80 [facility] Comment on above: Performed By: #### C BCDF #### [facility] [address] [place] [address] Lymphocytes/100 WBC (Bld) 28.0 % Normal 13.0 - 44.0 [facility] Comment on above: Performed By: #### C BCDF #### [facility] [address] [place] [address] MCHC (RBC) [Mass/Vol] 33.9 g/dL Normal 32.0 - 36.0 [facility] Comment on above: Performed By: #### C BCDF #### [facility] [address] [place] [address] MCV (RBC) [Entitic vol] 98 fL Normal 80 - 100 [facility] Comment on above: Performed By: #### C BCDF #### [facility] [address] [place] [address] Monocytes (Bld) [#/Vol] 1.08 10*3/uL High 0.10 - 1.00 [facility] Comment on above: Performed By: #### C BCDF #### [facility] [address] [place] [address] Monocytes/100 WBC (Bld) 9.6 % Normal 2.0 - 10.0 [facility] Comment on above: Performed By: #### C BCDF #### [facility] [address] [place] [address] Neutrophils (Bld) [#/Vol] 6.72 10*3/uL Normal 1.20 - 7.70 [facility] Comment on above: Performed By: #### C BCDF #### [facility] [address] [place] [address] Neutrophils/100 WBC (Bld) 59.6 % Normal 40.0 - 80.0 [facility] Comment on above: Performed By: #### C BCDF #### [facility] [address] [place] [address] NUCLEATED RBC 0.0 /100 WBC Normal 0.0-0.0 [facility] Comment on above: Performed By: #### C BCDF #### [facility] [address] [place] [address] Platelets (Bld) [#/Vol] 424 10*3/uL Normal 150 - 450 [facility] Comment on above: Performed By: #### C BCDF #### [facility] [address] [place] [address] RBC 4.02 x10E12/L Low 4.50 - 5.90 [facility] Comment on above: Performed By: #### C BCDF #### [place] [address] [place] [address] WBC (Bld) [#/Vol] 11.3 10*3/uL Normal 4.4 - 11.3 [facility] Comment on above: Performed By: #### C BCDF #### [facility] [address] [place] [address] COMPREHENSIVE PANELon 2020 Albumin [Mass/Vol] 3.9 g/dL Normal 3.4 - 5.0 [facility] Comment on above: Performed By: #### C BCDF #### [facility] [address] [place] [address] ALP [Catalytic activity/Vol] 99 U/L Normal 33 - 136 [facility] Comment on above: Performed By: #### C BCDF #### [facility] [address] [place] [address] ALT [Catalytic activity/Vol] 101 U/L High 10 - 52 [facility] Comment on above: Result Comment: Oksana ents treated with Sulfasalazine may generate falsely decreased results for ALT. Performed By: #### C BCDF #### [facility] [address] [place] [address] Anion gap [Moles/Vol] 17 mmol/L Normal 10 - 20 [facility] Comment on above: Performed By: #### C BCDF #### [facility] [address] [place] [address] AST [Catalytic activity/Vol] 45 U/L High 9 - 39 [facility] [facility] Comment on above: Performed By: #### C BCDF #### [facility] [address] [place] [address] Bilirubin [Mass/Vol] 0.7 mg/dL Normal 0.0 - 1.2 [facility] Comment on above: Performed By: #### C BCDF #### [facility] [address] [place] [address] Calcium [Mass/Vol] 9.1 mg/dL Normal 8.6 - 10.6 [facility] Comment on above: Performed By: #### C BCDF #### [facility] [address] [place] [address] Chloride [Moles/Vol] 101 mmol/L Normal 98 - 107 [facility] Comment on above: Performed By: #### C BCDF #### [facility] [address] [place] [address] Creatinine [Mass/Vol] 0.96 mg/dL Normal 0.50 - 1.30 [facility] Comment on above: Performed By: #### C BCDF #### [facility] [address] [place] [address] GFR- AM. >60 Normal >60 [facility] Comment on above: Result Comment: CALC ULATIONS OF ESTIMATED GFR ARE PERFORMED USING THE MDRD STUDY EQUATION FOR THE IDMS-TRACEABLE CREATININE METHODS. CLIN CHEM 2007;53:766-72 Performed By: #### C BCDF #### [facility] [address] [place] [address] GFR-NON AM. >60 Normal >60 [facility] Comment on above: Performed By: #### C BCDF #### [facility] [address] [place] [address] Glucose [Mass/Vol] 108 mg/dL High 74 - 99 [facility] Comment on above: Performed By: #### C BCDF #### [facility] [address] [place] [address] HCO3 (Bld) [Moles/Vol] 22 mmol/L Normal 21 - 32 [facility] Comment on above: Performed By: #### C BCDF #### [facility] [address] [place] [address] Potassium [Moles/Vol] 4.7 mmol/L Normal 3.5 - 5.3 [facility] Comment on above: Performed By: #### C BCDF #### [facility] [address] [place] [address] Protein [Mass/Vol] 6.6 g/dL Normal 6.4 - 8.2 [facility] Comment on above: Performed By: #### C BCDF #### [facility] [address] [place] [address] Sodium [Moles/Vol] 135 mmol/L Low 136 - 145 [facility] Comment on above: Performed By: #### C BCDF #### [facility] [address] [place] [address] Urea nitrogen [Mass/Vol] 16 mg/dL Normal 6 - 23 [facility] Comment on above: Performed By: #### C BCDF #### [facility] [address] [place] [address] Daily Progress Note-Medicine on 03-13-2021 Daily Progress Note-Medicine Service: Medicine Subjective Data: BROCK COLEY is a 66 year old Male who is Hospital Day # 3. Objective Data: Objective Information: T PRBPSpO2 [id number]/6294% Date/Time03/13 13:5403/13 13:5403/13 13:5403/13 13:5403/13 13:54 Range(35.7C - 36.9C ) (81 - 93 ) (18 - 18 ) (103 - 125 )/ (62 - 74 ) (94% - 94% ) As of 13-Mar-2021 07:15:00, patient is on 4 L/min of oxygen via nasal cannula. Highest temp of 36.9 C was recorded at 03/12 21:27 Pain reported at 03/13 15:55: 0 = None Recent Lab Results: Results: CBC: 03/13/2021 07:25 \ Hgb / \ 13.4 L / WBC Plt 11.3 424 / Hct \ / 39.5 L \ RBC: 4.02 L MCV: 98 Neutrophil %: 59.6 CMP: 03/13/2021 07:25 NA+ Cl- BUN / 135 L 101 16 / ------- Glucose -- 108 H K+ HCO3- Creat \ 4.7 22 0.96 \ \ T Bili / \ 0.7 / AST x ---- x ALT 45 Hx ---- x 101 H / Alk P \ / 99 \ Calcium : 9.1 Anion Gap : 17 Albumin : 3.9 T Protein : 6.6 Radiology Results: Results: Xray Chest 1 View [Mar 13 2021 1:42PM] CT Chest without Contrast [Mar 11 2021 1:25PM] Assessment and Plan: Code Status: Code StatusFull Code Assessment: Mr. Brock Coley is a 66 year old Male with iobmy-5-qtpajqhsoq deficiency (on weekly Prolastin-C, 1000mg IV every Sunday), COPD with emphysema on home oxygen (4L with exertion) who was recently hospitalized 02/28-03/03 for LLL EBV placement 2/2 lung volume reduction, now experiencing daily fevers with cough and chills since 03/04 s/p Levaquin 500mg 7 day course without improvement found to have acute pneumonia admitted for management of infection. Updates 03/13/2021: -Patient reports feeling better, afebrile, HD stable. -Cultures are still pending, MRSA screen negative, D/C Vancomycin, keep Zosyn, Pulm contacted and prefer to keep overnight to re-assess tomorrow. Below plan not updated #Ddxmy-7-szbetcyjbiq deficiency #Emphysema with severe copd s/p LLL EBV placement for LVRS #Chronic hypoxic respiratory failure #Acute pneumonia of left upper lobe s/p failed Levaquin vs possible re-expansion injury - treating with Vanc/Zosyn - duonebs - Pulmonary following, appreciate reccs: -Obtain sputum cultures if possible. -would do broad spectrum abx (vanc zosyn), pt already had atypical coverage with levaquin -obtain urine strep and legionella testing -daily CXR while admitted -substitute home trelegy for advair and tiotropium, albuterol nebs as needed -continue oxygen via nasal cannula achieve o2 sat >90% -weekly prolastin-c, need to confirm when he is due for his next dose #Familial tremor, stable - continue primidone 250mg twice a day + 50mg QD @ 1800 F: none E: replete as needed N: regular G: none A: PIV DVT ppx: Lovenox 40mg subQ q12 NOK: Luci Coley, , Attestation: Note Completion: I am a: Resident/Fellow Attending AttestationI saw and evaluated the patient. I personally obtained the marx and critical portions of the history and physical exam or was physically present for marx and critical portions performed by the resident/fellow. I reviewed the resident/fellows documentation and discussed the patient with the resident/fellow. I agree with the resident/fellows medical decision making as documented in the note. I personally evaluated the patient [id number] Comments/ Additional Findings Seen on rounds, reported to feeling much better Afebrile overnight, decreased sputum, no blood. Breathing stable C/s NGTD On 4L O2 via NC. Lungs with improved air entry. Cont Vanc/ ZOsyn for now, c/s NGTD Will taper off abx based on c/s tomorrow. Outpatient Pulm follow up Electronic Signatures: Max Champion (Resident)) (Signed 13-Mar-2021 17:41) Authored: Service, Subjective Data, Objective Data, Assessment and Plan Miriam Marks) (Signed 13-Mar-2021 23:14) Authored: Note Completion Co-Signer: Service, Subjective Data, Objective Data, Assessment and Plan Last Updated: 13-Mar-2021 23:14 by Miriam Marks) Normal [facility] LEGIONELLA AG, URINEon 03-13 LEGIONELLA AG, URINE Negative Normal Negative [facility] Comment on above: Result Comment: NEGA TIVE FOR LEGIONELLA PNEUMOPHILIA SEROGROUP 1 ANTIGEN IN URINE, SUGGESTING NO CURRENT OR PAST INFECTION. Performed By: #### C BCDF #### [facility] [address] [place] [address] S.PNEUMONIAE AG,Uon 03-13-20 21 S.PNEUMONIAE AG,U Negative Normal Negative [facility] [place] Comment on above: Result Comment: Pres umptive negative for pneumococcal pneumonia, suggesting no current or recent infection. Infection due to S. pneumoniae cannot be ruled out since the antigen present in the sample may be below the detection limit of the test. Performed By: #### S PNAG #### [facility] [address] [place] [address] TH CHEST 1 VIEWon 03-13-2021 TH CHEST 1 VIEW Patient Name: BROCK COLEY STUDY: CHEST 1 VIEW; 03/13/2021 6:08 am INDICATION: desat. COMPARISON: 03/12/2021 ACCESSION NUMBER(S): [id number] ORDERING CLINICIAN: ANNA MAN FINDINGS: AP radiograph of the chest was provided. CARDIOMEDIASTINAL SILHOUETTE: Stable mild enlargement of the cardiac silhouette. Stable left-sided mediastinal shift. LUNGS: Low lung volumes contributing to bronchovascular crowding. Patchy opacities in the left upper/mid lung duckworth and to a lesser extent in the left lower lobe are overall stable. Persistent blunting of the left CP angle. Changes of volume loss in the left hemithorax are stable. No discernible pneumothorax. ABDOMEN: No remarkable upper abdominal findings. BONES: No acute osseous changes. IMPRESSION: 1. Stable airspace opacities in the left upper/mid lung duckworth consistent with the known multifocal pneumonia. 2. Persistent left pleural effusion and left basilar atelectasis. Remaining changes of volume loss in the left hemithorax are stable. Electronically signed by: BASILIO OLIVAREZ MD Normal [facility] VANCOMYCIN,TROUGHon 03-13-20 21 VANCOMYCIN,TROUGH 12.8 ug/mL Normal 5.0 - 20.0 [facility] [place] Comment on above: Result Comment: Vanc omycin levels should be interpreted in conjunction with the dose, disease being treated, vancomycin CELESTE, time of draw (trough concentrations should be obtained just before the next dose at steady-state), and other clinical information. Trough concentrations of 15-20 ug/mL are desired for severe infections. Ref.: Am J Health-Syst Pharm 66: 83-98, 2008. Performed By: #### V ANCT #### [facility] [address] [place] [address] C-REACTIVE PROTEINon 021 C-REACTIVE PROTEIN 11.18 mg/dL Abnormal [facility] Comment on above: Result Comment: REF VALUE < 1.00 Performed By: #### C RP #### [facility] [address] [place] [address] CBC AND DIFFERENTIALon 03-12 % AUTOMATED IMMATURE GRAN 0.5 % Normal 0.0 - 0.9 [facility] Comment on above: Result Comment: Suellen ture Granulocyte Count (IG) includes promyelocytes, myelocytes and metamyelocytes but does not include bands. Percent differential counts (%) should be interpreted in the context of the absolute cell counts (cells/L). Performed By: #### C BCDF #### [facility] [address] [place] [address] Basophils (Bld) [#/Vol] 0.03 10*3/uL Normal 0.00 - 0.10 [facility] Comment on above: Performed By: #### C BCDF #### [facility] [address] [place] [address] Basophils/100 WBC (Bld) 0.3 % Normal 0.0 - 2.0 [facility] Comment on above: Performed By: #### C BCDF #### [facility] [address] [place] [address] Eosinophils (Bld) [#/Vol] 0.15 10*3/uL Normal 0.00 - 0.70 [facility] Comment on above: Performed By: #### C BCDF #### [facility] [address] [place] [address] Eosinophils/100 WBC (Bld) 1.6 % Normal 0.0 - 6.0 [facility] Comment on above: Performed By: #### C BCDF #### [facility] [address] [place] [address] Erythrocyte distribution width (RBC) [Ratio] 12.1 % Normal 11.5 - 14.5 [facility] Comment on above: Performed By: #### C BCDF #### [facility] [address] [place] [address] Hematocrit (Bld) [Volume fraction] 37.4 % Low 41.0 - 52.0 [facility] Comment on above: Performed By: #### C BCDF #### [facility] [address] [place] [address] Hemoglobin (Bld) [Mass/Vol] 13.0 g/dL Low 13.5 - 17.5 [facility] Comment on above: Performed By: #### C BCDF #### [facility] [address] [place] [address] Lymphocytes (Bld) [#/Vol] 2.27 10*3/uL Normal 1.20 - 4.80 [facility] Comment on above: Performed By: #### C BCDF #### [facility] [address] [place] [address] Lymphocytes/100 WBC (Bld) 24.0 % Normal 13.0 - 44.0 [facility] Comment on above: Performed By: #### C BCDF #### [facility] [address] [place] [address] MCHC (RBC) [Mass/Vol] 34.8 g/dL Normal 32.0 - 36.0 [facility] Comment on above: Performed By: #### C BCDF #### [facility] [address] [place] [address] MCV (RBC) [Entitic vol] 97 fL Normal 80 - 100 [facility] Comment on above: Performed By: #### C BCDF #### [facility] [address] [place] [address] Monocytes (Bld) [#/Vol] 0.95 10*3/uL Normal 0.10 - 1.00 [facility] Comment on above: Performed By: #### C BCDF #### [facility] [address] [place] [address] Monocytes/100 WBC (Bld) 10.1 % Normal 2.0 - 10.0 [facility] Comment on above: Performed By: #### C BCDF #### [facility] [address] [place] [address] Neutrophils (Bld) [#/Vol] 6.00 10*3/uL Normal 1.20 - 7.70 [facility] Comment on above: Performed By: #### C BCDF #### [facility] [address] [place] [address] Neutrophils/100 WBC (Bld) 63.5 % Normal 40.0 - 80.0 [facility] Comment on above: Performed By: #### C BCDF #### [facility] [address] [place] [address] NUCLEATED RBC 0.0 /100 WBC Normal 0.0-0.0 [facility] Comment on above: Performed By: #### C BCDF #### [facility] [address] [place] [address] Platelets (Bld) [#/Vol] 406 10*3/uL Normal 150 - 450 [facility] Comment on above: Performed By: #### C BCDF #### [facility] [address] [place] [address] RBC 3.84 x10E12/L Low 4.50 - 5.90 [facility] Comment on above: Performed By: #### C BCDF #### [facility] [address] [place] [address] WBC (Bld) [#/Vol] 9.5 10*3/uL Normal 4.4 - 11.3 [facility] Comment on above: Performed By: #### C BCDF #### [facility] [address] [place] [address] Daily Progress Note-Medicine on 03-12-2021 Daily Progress Note-Medicine Service: Medicine Subjective Data: BROCK COLEY is a 66 year old Male who is Hospital Day # 2. Objective Data: Objective Information: T PRBPSpO2 [id number]/8491% Date/Time03/12 13: 13: 13: 13: 13:18 Range(35.5C - 36.4C ) (86 - 97 ) (18 - 18 ) (126 - 145 )/ (71 - 84 ) (91% - 95% ) As of 12-Mar-2021 09:30:00, patient is on 4 L/min of oxygen via nasal cannula. Pain reported at 03/12 9:30: 0 = None Medication: Medications: Continuous Medications ------- No continuous medications are active Scheduled Medications ------- 1. Aspirin Chewable: 81 mg Oral Daily 2. Enoxaparin SubCutaneous: 40 mg SubCutaneous Every 24 Hours 3. Fluticasone 250 microgram -Salmeterol 50 microgram/ Inh: 1 inhalation Inhalation Every 12 Hours 4. Piperacillin - Tazobactam 4.5 gram/Iso-osmotic 100 mL Premix IVPB: 100 mL IntraVenous Piggyback Every 6 Hours 5. Primidone: 250 mg Oral 2 Times a Day 6. Primidone: 50 mg Oral Daily 1800 7. Tiotropium 18 micrograms/ Inhalation: 1 inhalation Inhalation Every 24 Hours 8. Vancomycin - RPh to Dose - IV Piggy Back: 1 each As Specified Variable 9. Vancomycin IV Piggy Back: 1750 mg IntraVenous Piggyback Every 12 Hours 10. Vitamin B Complex with C: 1 each Oral Daily PRN Medications ------- 1. Albuterol 2.5 mg/ 3 mL Nebulizer Soln: 3 mL Inhalation Every 4 Hours Recent Lab Results: Results: CBC: 03/12/2021 08:41 \ Hgb / \ 13.0 L / WBC Plt 9.5 406 / Hct \ / 37.4 L \ RBC: 3.84 L MCV: 97 Neutrophil %: 63.5 CMP: 03/11/2021 17:19 NA+ Cl- BUN / 136 101 15 / ------- Glucose -- 100 H K+ HCO3- Creat \ 4.7 23 0.68 \ \ T Bili / \ 0.5 / AST x ---- x ALT 37 x ---- x 82 H / Alk P \ / 93 \ Calcium : 9.6 Anion Gap : 17 Albumin : 4.2 T Protein : 7.1 RFP: 03/12/2021 08:41 NA+ Cl- BUN / 134 L 100 15 / ------- Glucose -- 114 H K+ HCO3- Creat \ 4.2 25 0.83 \ Calcium : 9.3Anion Gap : 13 Albumin : 3.9 Phos : 4.0 Radiology Results: Results: Impression: 1. Stable patchy airspace opacity in the left upper/mid lung, consistent with the known pneumonia. 2. Slightly improving left lower lobe aeration and small left pleural effusion. Xray Chest 1 View [Mar 12 2021 8:02AM] Assessment and Plan: Code Status: Code StatusFull Code Assessment: Mr. Brock Coley is a 66 year old Male with rthgu-0-tbkgloxcxh deficiency (on weekly Prolastin-C, 1000mg IV every Sunday), COPD with emphysema on home oxygen (4L with exertion) who was recently hospitalized 02/28-03/03 for LLL EBV placement 2/2 lung volume reduction, now experiencing daily fevers with cough and chills since 03/04 s/p Levaquin 500mg 7 day course without improvement found to have acute pneumonia admitted for management of infection. Updates 03/12/2021: -Patient reports feeling better, afebrile, HD stable. Cultures are still pending, for now continue vanc/zosyn and will deesacalate pending cultures. Monitor for fever. -Daily CXR -Decrease O2 from 4 to 2-3 L Below plan not updated #Hyqne-4-pxityyvigjh deficiency #Emphysema with severe copd s/p LLL EBV placement for LVRS #Chronic hypoxic respiratory failure #Acute pneumonia of left upper lobe s/p failed Levaquin vs possible re-expansion injury - treating with Vanc/Zosyn - duonebs - Pulmonary following, appreciate reccs: -Obtain sputum cultures if possible. -would do broad spectrum abx (vanc zosyn), pt already had atypical coverage with levaquin -obtain urine strep and legionella testing -daily CXR while admitted -substitute home trelegy for advair and tiotropium, albuterol nebs as needed -continue oxygen via nasal cannula achieve o2 sat >90% -weekly prolastin-c, need to confirm when he is due for his next dose #Familial tremor, stable - continue primidone 250mg twice a day + 50mg QD @ 1800 F: none E: replete as needed N: regular G: none A: PIV DVT ppx: Lovenox 40mg subQ q12 NOK: Luci Coley, , Attestation: Note Completion: I am a: Resident/Fellow Attending AttestationI saw and evaluated the patient. I personally obtained the marx and critical portions of the history and physical exam or was physically present for marx and critical portions performed by the resident/fellow. I reviewed the resident/fellows documentation and discussed the patient with the resident/fellow. I agree with the resident/fellows medical decision making as documented in the note. I personally evaluated the patient [id number] Comments/ Additional Findings Please refer to H&P Electronic Signatures: Anna Johnson (Resident)) (Signed 12-Mar-2021 14:40) Authored: Subjective (more content not included)... Normal [facility] LEGIONELLA AG, URINEon 03-12 Lab Specimen Source Normal [facility] Comment on above: Performed By: #### C BCDF #### [facility] [address] [place] [address] MAGNESIUMon 03-12-2021 Magnesium [Mass/Vol] 2.24 mg/dL Normal 1.60 - 2.40 [facility] Comment on above: Performed By: #### M G #### [facility] [address] [place] [address] RENAL FUNCTION PANELon 03-12 Albumin [Mass/Vol] 3.9 g/dL Normal 3.4 - 5.0 [facility] Comment on above: Performed By: #### R ENAL #### [facility] [address] [place] [address] Anion gap [Moles/Vol] 13 mmol/L Normal 10 - 20 [facility] Comment on above: Performed By: #### R ENAL #### [facility] [address] [place] [address] Calcium [Mass/Vol] 9.3 mg/dL Normal 8.6 - 10.6 [facility] Comment on above: Performed By: #### R ENAL #### [facility] [address] [place] [address] Chloride [Moles/Vol] 100 mmol/L Normal 98 - 107 [facility] Comment on above: Performed By: #### R ENAL #### [facility] [address] [place] [address] Creatinine [Mass/Vol] 0.83 mg/dL Normal 0.50 - 1.30 [facility] Comment on above: Performed By: #### R ENAL #### [facility] [address] [place] [address] GFR- AM. >60 Normal >60 [facility] Comment on above: Result Comment: CALC ULATIONS OF ESTIMATED GFR ARE PERFORMED USING THE MDRD STUDY EQUATION FOR THE IDMS-TRACEABLE CREATININE METHODS. CLIN CHEM 2007;53:766-72 Performed By: #### R ENAL #### [facility] [address] [place] [address] GFR-NON AM. >60 Normal >60 [facility] Comment on above: Performed By: #### R ENAL #### [facility] [address] [place] [address] Glucose [Mass/Vol] 114 mg/dL High 74 - 99 [facility] Comment on above: Performed By: #### R ENAL #### [facility] [address] [place] [address] HCO3 (Bld) [Moles/Vol] 25 mmol/L Normal 21 - 32 [facility] Comment on above: Performed By: #### R ENAL #### [facility] [address] [place] [address] Phosphate [Mass/Vol] 4.0 mg/dL Normal 2.5 - 4.9 [facility] Comment on above: Result Comment: The performance characteristics of phosphorus testing in heparinized plasma have been validated by the individual laboratory site where testing is performed. Testing on heparinized plasma is not approved by the FDA; however, such approval is not necessary. Performed By: #### R ENAL #### [facility] [address] [place] [address] Potassium [Moles/Vol] 4.2 mmol/L Normal 3.5 - 5.3 [facility] Comment on above: Performed By: #### R ENAL #### [facility] [address] [place] [address] Sodium [Moles/Vol] 134 mmol/L Low 136 - 145 [facility] Comment on above: Performed By: #### R ENAL #### [facility] [address] [place] [address] Urea nitrogen [Mass/Vol] 15 mg/dL Normal 6 - 23 [facility] Comment on above: Performed By: #### R ENAL #### [facility] [address] [place] [address] RESPIRATORY CULT./SM,LOWERon 03-12-2021 RESPIRATORY CULT./SM,LOWER PATIENT: BROCK COLEY LOCATION: [address]#: [id number] : 53 AGE: SEX: M ORDERED BY: ANNA JOHNSON SOURCE: SPUTUM COLLECTED: 03/12/21 13:04 ANTIBIOTICS AT DIO.: RECEIVED : 03/12/21 15:41 SITE: R E S U L T S GRAM STAIN FINAL 03/12/21 16:45 GRAM STAIN INDICATES SPECIMEN CONSISTS OF LOWER RESPIRATORY TRACT SECRETIONS. NO PREDOMINANT ORGANISM. RESPIRATORY CULT./SM,LOWER FINAL 03/14/21 11:59 NORMAL THROAT MELANIE. Normal [facility] Comment on above: Performed By: #### R ESPL #### [facility] [address] [place] [address] TH CHEST 1 VIEWon 03-12-2021 TH CHEST 1 VIEW Patient Name: BROCK COLEY STUDY: CHEST 1 VIEW; 03/12/2021 3:53 am INDICATION: COPD with HAP. COMPARISON: 03/11/2021 ACCESSION NUMBER(S): [id number] ORDERING CLINICIAN: MAX CHAMPION FINDINGS: AP radiograph of the chest was provided. CARDIOMEDIASTINAL SILHOUETTE: Stable mild enlargement of the cardiac silhouette. Slightly improved left-sided mediastinal shift. LUNGS: Low lung volumes with resultant bronchovascular crowding. Stable patchy airspace opacity in the left upper/mid lung field, consistent with the known pneumonia. Slightly improving hazy opacification at the left lung base, with improved visualization of the left hemidiaphragm and blunting of the left costophrenic angle. No discernible pneumothorax. ABDOMEN: No remarkable upper abdominal findings. BONES: No acute osseous changes. IMPRESSION: 1. Stable patchy airspace opacity in the left upper/mid lung, consistent with the known pneumonia. 2. Slightly improving left lower lobe aeration and small left pleural effusion. Electronically signed by: BASILIO OLIVAREZ MD Normal [facility] Admission Risk Screen - Adul ton 03-11-2021 Admission Risk Screen - Adult Allergies: Allergies: No Known Allergies: Patient Verification: New W ID Band Applied in my Departmentyes Patient Identity Verified Bypatient ID Band FULL Name, include Middle, spelling matches patient's ID used for verificationyes ID Band Matches Patient ID used for Verficationyes ID Band MRN Matches EMR MRNyes Visitor Restriction: Coronavirus Visitor Restriction: Reasonable restrictions to in-person visitors will be observed due to current coronavirus pandemic. Travel History: COVID-19 Screening Completedno exposure or symptoms Travel or Exposure Past 30 DaysNO travel to International locations in the past 30 days Ebola AlertFor Ebola-like Symptoms: Isolate Patient and Notify Provider/Assistant Manager Retail For Contact: Notify Provider/Assistant [employer] Advance Directive: Advance Directive/DNRno Advance Directive Information Givenpatient/family declined [place] Fall Screen: History of falling (immediate or previous)no (0) Secondary Diagnosisyes (15) Intravenous Therapy/ Heparin/Saline Lockyes (20) Gait/Transferringnormal/b edrest/wheelchair (0) Ambulatory Aidsnone/bedrest/nurse assist (0) Mental Statusoriented to own ability (0) Score: Low risk (<25). Moderate risk (25-44). High risk (>44).35 [place] InterventionsMODERATE INTERVENTIONS: *Low Interventions Plus: * falls risk band/sticker applied to patient, *yellow non-skid footwear, *instruct to call for assistance before getting out of bed, *bed/chair/bedside commode/toilet alarms, *sensory devices/ambulatory aides available and in reach, *medications reviewed for potential side effects and care planning. Family Violence Screen: Are you or have you been threatened or abused physically, emotionally, or sexually by anyoneno Do you feel UNSAFE going back to the place where you are livingno Clinical assessment: Are there any apparent signs of injuries/behaviors that could be related to abuse/neglectno Social Service Consult for abuse/neglect needed this visitno Functional Screen: Functional Screen: In the recent/past 2-4 weeks, patient or family have noticedno issues that require a speech/language consult at this time AM-PAC- Basic Mobility/Daily Activity: Patient baseline bedboundno Turning from your back to your side while in a flat bed without using bedrailsnone Moving from lying on your back to sitting on the side of a flat bed without using bedrailsnone Moving to and from bed to chair (including a wheelchair)none Standing up from a chair using your arms (e.g. wheelchair or bedside chair) none To walk in hospital roomnone Climbing 3-5 steps with railingnone Basic Mobility - Total Score24 Putting on and taking off regular lower body clothingnone Bathing (including washing, rinsing, drying)none Putting on and taking off regular upper body clothingnone Toileting, which includes using toilet, bedpan or urinalnone Taking care of personal grooming such as brushing teethnone Eating Mealsnone Daily Activity - Total Score24 Learning Assessment (Patient): Patient is Able to be Assessed for Learningyes Factors Influencing Readiness to Learnnone Factors that Impact Ability to Learnnone Devices/Methods Used to Communicatenone Learning Preferencesverbal instruction Cultural Considerationsnone Developmental Considerationsnone Adventist Considerationsnone Learning Assessment (Other Learner): Other learner availableyes... Learnerspouse Factors Influencing Readiness to Learnnone Factors that Impact Ability to Learnnone Devices/Methods Used to Communicatenone Learning Preferencesverbal instruction Cultural Considerationsnone Developmental Considerationsnone Adventist Considerationsnone Depression Screen: During the past month, have you often been bothered by feeling down, depressed or hopelessno During the past month, have you often had little interest or pleasure in doing thingsno Have you had any thoughts of harming anyone elseno [place] Suicide: Risk Screen Not Applicable/Able to Answerable to be screened In the Past Month: Have you wished you were or could go to sleep and not wake upno In the Past Month: Have you had any actual thoughts of killing yourselfno Lifetime: Have you ever done, started to do, or prepared to do anything to end your lifeno [place] Suicide Risknegative Adult Nutrition Screen: Have you recently lost weight without tryingno Have you been eating poorly because of a decreased appetiteno Malnutrition Screening Tool Score0 Malnutrition Screening Tool RiskMST = 0 or 1 Not at risk. Eating well with little or no weight loss Nutrition Consult needed this visitno Can Patient Participate in Room Serviceyes Patient requires Paper Dishes/Plastic Utensilsno Pain Screen: Pain Scalenumerical 0-10 Pain Scale Educationteaching provided Current Pain Level0 = None Acceptable Pain Level0 = Non (more content not included)... Normal [facility] BLOOD CULTURE, BACTERIALon 0 03-11-2021 BLOOD CULTURE, BACTERIAL PATIENT: BROCK COLEY LOCATION: [address] BILL#: [id number] : 53 AGE: SEX: M ORDERED BY: MIRIAM MARKS SOURCE: Blood COLLECTED: 03/11/21 17:20 ANTIBIOTICS AT DIO.: RECEIVED : 03/11/21 18:34 SITE: PERIPHERAL R E S U L T S BLOOD CULTURE, BACTERIAL FINAL 03/16/21 19:42 No Growth at 1 days No Growth at 2 days No Growth at 3 days No Growth at 4 days NO GROWTH - FINAL REPORT Normal [facility] Comment on above: Performed By: #### C BCDF #### [facility] [address] [place] [address] BLOOD CULTURE, BACTERIAL PATIENT: BROCK COLEY LOCATION: [address]#: [id number] : 53 AGE: SEX: M ORDERED BY: MIRIAM MARKS SOURCE: Blood COLLECTED: 03/11/21 17:19 ANTIBIOTICS AT DIO.: RECEIVED : 03/11/21 18:34 SITE: PERIPHERAL R E S U L T S BLOOD CULTURE, BACTERIAL FINAL 03/16/21 19:42 No Growth at 1 days No Growth at 2 days No Growth at 3 days No Growth at 4 days NO GROWTH - FINAL REPORT Normal [facility] Comment on above: Performed By: #### C BCDF #### [facility] [address] [place] [address] C-REACTIVE PROTEINon 021 C-REACTIVE PROTEIN 11.84 mg/dL Abnormal [facility] Comment on above: Result Comment: REF VALUE < 1.00 Performed By: #### C RP #### [facility] [address] [place] [address] CBC AND DIFFERENTIALon 03-11 % AUTOMATED IMMATURE GRAN 0.3 % Normal 0.0 - 0.9 [facility] Comment on above: Result Comment: Suellen ture Granulocyte Count (IG) includes promyelocytes, myelocytes and metamyelocytes but does not include bands. Percent differential counts (%) should be interpreted in the context of the absolute cell counts (cells/L). Performed By: #### C RP #### [facility] [address] [place] [address] Basophils (Bld) [#/Vol] 0.03 10*3/uL Normal 0.00 - 0.10 [facility] Comment on above: Performed By: #### C RP #### [facility] [address] [place] [address] Basophils/100 WBC (Bld) 0.3 % Normal 0.0 - 2.0 [facility] Comment on above: Performed By: #### C RP #### [facility] [address] [place] [address] Eosinophils (Bld) [#/Vol] 0.10 10*3/uL Normal 0.00 - 0.70 [facility] Comment on above: Performed By: #### C RP #### [facility] [address] [place] [address] Eosinophils/100 WBC (Bld) 1.0 % Normal 0.0 - 6.0 [facility] Comment on above: Performed By: #### C RP #### [facility] [address] [place] [address] Erythrocyte distribution width (RBC) [Ratio] 12.1 % Normal 11.5 - 14.5 [facility] Comment on above: Performed By: #### C RP #### [facility] [address] [place] [address] Hematocrit (Bld) [Volume fraction] 39.3 % Low 41.0 - 52.0 [facility] Comment on above: Performed By: #### C RP #### [facility] [address] [place] [address] Hemoglobin (Bld) [Mass/Vol] 13.5 g/dL Normal 13.5 - 17.5 [facility] Comment on above: Performed By: #### C RP #### [facility] [address] [place] [address] Lymphocytes (Bld) [#/Vol] 2.00 10*3/uL Normal 1.20 - 4.80 [facility] Comment on above: Performed By: #### C RP #### [facility] [address] [place] [address] Lymphocytes/100 WBC (Bld) 20.6 % Normal 13.0 - 44.0 [facility] Comment on above: Performed By: #### C RP #### [facility] [address] [place] [address] MCHC (RBC) [Mass/Vol] 34.4 g/dL Normal 32.0 - 36.0 [facility] Comment on above: Performed By: #### C RP #### [facility] [address] [place] [address] MCV (RBC) [Entitic vol] 98 fL Normal 80 - 100 [facility] Comment on above: Performed By: #### C RP #### [facility] [address] [place] [address] Monocytes (Bld) [#/Vol] 0.98 10*3/uL Normal 0.10 - 1.00 [facility] Comment on above: Performed By: #### C RP #### [facility] [address] [place] [address] Monocytes/100 WBC (Bld) 10.1 % Normal 2.0 - 10.0 [facility] Comment on above: Performed By: #### C RP #### [facility] [address] [place] [address] Neutrophils (Bld) [#/Vol] 6.59 10*3/uL Normal 1.20 - 7.70 [facility] Comment on above: Performed By: #### C RP #### [facility] [address] [place] [address] Neutrophils/100 WBC (Bld) 67.7 % Normal 40.0 - 80.0 [facility] Comment on above: Performed By: #### C RP #### [facility] [address] [place] [address] NUCLEATED RBC 0.0 /100 WBC Normal 0.0-0.0 [facility] Comment on above: Performed By: #### C RP #### [facility] [address] [place] [address] Platelets (Bld) [#/Vol] 393 10*3/uL Normal 150 - 450 [facility] Comment on above: Performed By: #### C RP #### [facility] [address] [place] [address] RBC 4.01 x10E12/L Low 4.50 - 5.90 [facility] Comment on above: Performed By: #### C RP #### [facility] [address] [place] [address] WBC (Bld) [#/Vol] 9.7 10*3/uL Normal 4.4 - 11.3 [facility] Comment on above: Performed By: #### C RP #### [facility] [address] [place] [address] COMPREHENSIVE PANELon 2020 Albumin [Mass/Vol] 4.2 g/dL Normal 3.4 - 5.0 [facility] Comment on above: Performed By: #### C BCDF #### [facility] [address] [place] [address] ALP [Catalytic activity/Vol] 93 U/L Normal 33 - 136 [facility] Comment on above: Performed By: #### C BCDF #### [facility] [address] [place] [address] ALT [Catalytic activity/Vol] 82 U/L High 10 - 52 [facility] Comment on above: Result Comment: Oksana ents treated with Sulfasalazine may generate falsely decreased results for ALT. Performed By: #### C BCDF #### [facility] [address] [place] [address] Anion gap [Moles/Vol] 17 mmol/L Normal 10 - 20 [facility] Comment on above: Performed By: #### C BCDF #### [facility] [address] [place] [address] AST [Catalytic activity/Vol] 37 U/L Normal 9 - 39 [facility] Comment on above: Performed By: #### C BCDF #### [facility] [address] [place] [address] Bilirubin [Mass/Vol] 0.5 mg/dL Normal 0.0 - 1.2 [facility] Comment on above: Performed By: #### C BCDF #### [facility] [address] [place] [address] Calcium [Mass/Vol] 9.6 mg/dL Normal 8.6 - 10.6 [facility] Comment on above: Performed By: #### C BCDF #### [facility] [address] [place] [address] Chloride [Moles/Vol] 101 mmol/L Normal 98 - 107 [facility] Comment on above: Performed By: #### C BCDF #### [facility] [address] [place] [address] Creatinine [Mass/Vol] 0.68 mg/dL Normal 0.50 - 1.30 [facility] Comment on above: Performed By: #### C BCDF #### [facility] [address] [place] [address] GFR- AM. >60 Normal >60 [facility] Comment on above: Result Comment: CALC ULATIONS OF ESTIMATED GFR ARE PERFORMED USING THE MDRD STUDY EQUATION FOR THE IDMS-TRACEABLE CREATININE METHODS. CLIN CHEM 2007;53:766-72 Performed By: #### C BCDF #### [facility] [address] [place] [address] GFR-NON AM. >60 Normal >60 [facility] Comment on above: Performed By: #### C BCDF #### [facility] [address] [place] [address] Glucose [Mass/Vol] 100 mg/dL High 74 - 99 [facility] Comment on above: Performed By: #### C BCDF #### [facility] [address] [place] [address] HCO3 (Bld) [Moles/Vol] 23 mmol/L Normal 21 - 32 [facility] Comment on above: Performed By: #### C BCDF #### [facility] [address] [place] [address] Potassium [Moles/Vol] 4.7 mmol/L Normal 3.5 - 5.3 [facility] Comment on above: Performed By: #### C BCDF #### [facility] [address] [place] [address] Protein [Mass/Vol] 7.1 g/dL Normal 6.4 - 8.2 [facility] Comment on above: Performed By: #### C BCDF #### [facility] [address] [place] [address] Sodium [Moles/Vol] 136 mmol/L Normal 136 - 145 [facility] Comment on above: Performed By: #### C BCDF #### [facility] [address] [place] [address] Urea nitrogen [Mass/Vol] 15 mg/dL Normal 6 - 23 [facility] Comment on above: Performed By: #### C BCDF #### [facility] [address] 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 (Currenlty on 4L during exertion, 1-2L at rest), and familial tremors. Had LLL EBV placement for lung volume reduction on 02/28. Discharged 3 days after EBV and started to have fevers (101-102) increase in her productive cough with streaks of blood (which started 2 days ago), fever is associated with chills, responding to acetaminophen (1g), also notes increase in SOB brigette. with exertion andO2 requirement is now 4L at rest and desaturates further with exertion. Exam did not reveal any crackles or wheezing, no JVD, no limb edema, not in distress. Received COVID Pfizer 2nd dose in . CT chest, 03/11: Ground glass opacities left lung suggesting acute pneumonia. Atelectasis and volume loss left lower lobe with small left pleural effusion. Mucous plugging left lower lobe. Underlying emphysematous changes.. 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 (Currenlty on 4L during exertion, 1-2L at rest), and familial tremors. Had LLL EBV placement for lung volume reduction on 02/28., presenting with fever, progressive SOB and blood streaked sputum and pneumonia on CT and CXR, not improving on Levofloxacin. Current issues: -Pneumonia, likely hospital acquired in view of recent bronchoscopy in background of severe COPD/emphysema, will cover for PsA/MRSA. Plan: -Send Blood culture, Strept. Pneumoniea/Legionella urine antigen, MRSA swabs, Sputum cultures. -Start Zosyn and Vancomycin empirically, will De-escalate based on septic work-up. -Adavir and tiotropium in plce of trelegy, PRN Albuterol. -Daily CXR as per Pulm Recs and target O2 88-92%. Electronic Signatures: Max Champion ( (Resident)) (Signed 11-Mar-2021 17:37) Authored: Clinical Event Note Last Updated: 11-Mar-2021 17:37 by Max Champion ( (Resident)) Normal [facility] Consult-Pulmonologyon 2020 Consult-Pulmonology Service: Service: Pulmonology Consult: Consult requested by (Attending Name): Miriam Marks Reason: pneumonia post EBV placement History of Present Illness: HPI: BROCK COLEY is a 66 year old Male with a1at deficiency, copd with emphysema on home oxygen since May 2020. Had LLL EBV placement for lung volume reduction. Pt able to be discharged on home o2 (4L). Since procedure, pt with cough, fevers, had appointment today with CT chest which showed pneumonia. Pt direct admit for this. MEDICAL HX: A1AT deficiency COPD/Emphysema Chronic hypoxemic respiratory failure Familial Tremors IMAGING STUDIES: CT chest 12/15/2020 -> severe emphysema & hyperinflation greatest in LLL; 2 mm RUL nodule PFTs: 05/18/2020 Spirometry: FVC = 4.04 L (99% predicted) FEV1 = 1.23 L (40% predicted) FEV1/FVC = 30% DLCO: 43% predicted Lung volumes: TLC = 130% predicted, RV = 182% predicted, RV/TLC = 48% 6MWT: 05/18/2020 - RA -> 4L/min SpO2 93% -> 82% (placed on oxygen) HR 92 -> 122 [place] 0.5 -> 2 Actual meters walked 274 m / predicted lower limit 308 m Echo: 12/06/2020 -> EF 55%, normal RV size & function, mildly dilated RA, normal LA, normal valves, RVSP ~17 mmHg SURGICAL HX: Cholecystectomy 2010 at [facility] FAMILY HX: Multiple members- COPD, leukemia, gastric cancer SOCIAL HX: Former 1 to 2 ppd tobacco smoker, quit 2016. Denies alcohol or illicit drug use. Review Family/Social History and ROS: Constitutional: POSITIVE: Fever, Chills Eyes: NEGATIVE: Blurry Vision, Drainage ENMT: NEGATIVE: Nasal Discharge, Nasal Congestion Respiratory: POSITIVE: Productive Cough; NEGATIVE: Hemoptysis Cardiac: POSITIVE: Dyspnea on Exertion; NEGATIVE: Chest Pain Gastrointestinal: NEGATIVE: Nausea, Vomiting Genitourinary: NEGATIVE: Discharge, Dysuria Musculoskeletal: NEGATIVE: Decreased ROM, Pain Neurological: NEGATIVE: Dizziness, Confusion Psychiatric: NEGATIVE: Mood Changes, Anxiety Skin: NEGATIVE: Pruritus, Rash Endocrine: NEGATIVE: Heat Intolerance, Cold Intolerance Hematologic/Lymph: NEGATIVE: Anemia, Bruising Allergic/Immunologic: NEGATIVE: Itching, Sneezing Allergies: No Known Allergies: Objective: Physical Exam by System: Constitutional: Well developed, awake/alert/oriented x3, no distress, alert and cooperative Eyes: EOMI, clear sclera ENMT: mucous membranes moist, no apparent injury, no lesions seen Head/Neck: Neck supple, no apparent injury Respiratory/Thorax: Patent airways, CTA Cardiovascular: Regular, rate and rhythm, no murmurs Gastrointestinal: Nondistended, soft, non-tender Musculoskeletal: ROM intact, no joint swelling, normal strength Extremities: normal extremities, no cyanosis edema, contusions or wounds, no clubbing Neurological: alert and oriented x3, intact senses, motor Psychological: Appropriate mood and behavior Skin: Warm and dry, no lesions, no rashes Radiology Results: Results: Impression: Ground glass opacities left lung suggesting acute pneumonia. Atelectasis and volume loss left lower lobe with small left pleural effusion. Mucous plugging left lower lobe. Underlying emphysematous changes.. Mildly enlarged mediastinal and left hilar lymph nodes. Signed by Radha Malcolm, DO CT Chest without Contrast [Mar 11 2021 1:25PM] Assessment: BROCK COLEY is a 66 year old Male with a1at deficiency, copd with emphysema on home oxygen since May 2020. Had LLL EBV placement for lung volume reduction. Pt able to be discharged on home o2 (4L). Since procedure, pt with cough, fevers, had appointment today with CT chest which showed pneumonia. #Acute , left upper lobe-s/p failure to control fevers on levaquin vs possible re-expansion injury #emphysema with severe copd s/p LLL EBV placement for LVRS #Chronic hypoxic respiratory failure #Productive Cough Recommendations -Obtain sputum cultures if possible. -would do broad spectrum abx (vanc zosyn), pt already had atypical coverage with levaquin -obtain urine strep and legionella testing -daily CXR while admitted -substitute home trelegy for advair and tiotropium, albuterol nebs as needed -continue oxygen via nasal cannula achieve o2 sat >90% -weekly prolastin-c, need to confirm when he is due for his next dose seen and d/w Dr Soumya Stovall will follow. Attestation: Note Completion: I am a: Resident/Fellow Attending AttestationI saw and evaluated the patient. I personally obtained the marx and critical portions of the history and physical exam or was physically present for marx and critical portions performed by the resident/fellow. I reviewed the resident/fellows documentation and discussed the patient with the resident/fellow. I agree with the resident/fellows medical decision making as documented in the note. I personally evaluated the patient [id number] (more content not included)... Normal [facility] Discharge Planning [id number] 03-11-2021 Discharge Planning Note2 Discharge Planning: Needs Prior to Discharge (ex. Home Care Orders, IV/O2 prescriptions) f/u appts Planned Dispositionhome Discharge DestinationHome with spouse AMPAC < 20no Anticipated Discharge [id number] Discharge Planning Admission Note: 03/11/21 14:55 Pt admitted from his pulmonologists office. He presented with intermittent fevers and a decreased pulse ox with activity. Pt's vital signs are stable and he is afebrile. He has no c/o pain. Awaiting MD orders. Lisa Hernandez RN. merchandise carrier Note: 03/15/21 1400 Pt dc home with . Pt given meds to bed and remains on 4L 02. Pt educated on discharge instructions and follow up appointment. Stephania Tran merchandise carrier Barriersnone Assessment: Discharge Planning Assessment [id number] Discharge Planning Assessment Completed byVaishali Siddiqui RNarchitectural intern Coordinator Primary Contact Name and NumberDarlene (spouse)-[phone]/ Stated Reason for AdmissionI was having fevers at home.(1) Arrived [facility]physician office (1) [facility] P[facility] Last Date [facility] [place] Medication Adherence/Afford/Obtainye s InsuranceMedi A/B/Aetna Sr Supp Lives Withspouse; pt's phone #: [phone] Living Arrangementshouse(1) Recent Falls/ Injury/ Need Assist with Ambulationdenies Prior Level of Functioningindependent with ADLS Equipment Currently Used at HomeN/A Home Care Agency/Support ServicesN/A DME Supplier Name/NumberN/A Home O2/BiPAP/CPAPHome O2 O2 LPM4L [place] Home O2 Supplier[employer] [phone] Diabetic/Supplies NeededN/A Hemodialysis ScheduleN/A Resource/Environmental Concernsnone(1) Social Determinants of Health Identifieddenies Transportation Home Who/Howchild Anticipated Transition Tohome(1) Services Anticipated at Transitionnone(1) Equipment Needed After Dischargenone Anticipated Discharge Facility/Level of Care NeedsHome Discharge Planning CommentsPt has transportation to medical appointments, feels safe at home. Address, phone and emergency contact information verified. All questions and concerns answered. Will continue to follow for discharge needs. Vaishali Siddiqui RNarchitectural intern Coordinator Discharge Documentation: Discharge/Transfer Date/[id number] Electronic Signatures: Lisa Hernandez (RN) (Signed 11-Mar-2021 18:00) Authored: Discharge Planning, Assessment, Discharge Documentation Vaishali Siddiqui (CLIN COOR) (Signed 14-Mar-2021 15:04) Authored: Discharge Planning, Assessment Stephania Tran) (Signed 15-Mar-2021 14:29) Authored: Discharge Planning Last Updated: 15-Mar-2021 14:29 by Stephania Tran (JIGAR) References: 1. Data Referenced From Patient Profile - Adult v2 11-Mar-2021 17:52 Normal [facility] Discharge [id number] Discharge Profile2 Discharge Orders: Anticipated Discharge Date: Anticipated Discharge [id number] Anticipated Discharge Time13:38 DNAR: DNAR Status: none Oxygen: Administer oxygen at 4 via to maintain SpO2 % of. Hospital Course (Home Care/Gold Form): Hospital Course: Hospital Course: include significant abnormal lab values Mr. Brock Coley is a 66 year old Male with tgrdw-3-jzrtonxpyn deficiency (on weekly Prolastin-C, 1000mg IV every Sunday), COPD with emphysema on home oxygen (4L with exertion) who was recently hospitalized 02/28-03/03 for LLL EBV placement 2/2 lung volume reduction, now experiencing daily fevers with cough and chills since 03/04 s/p Levaquin 500mg 7 day course without improvement found to have acute pneumonia admitted for management of infection. He was started on Vanc/Zosyn. Vanc was stopped after MRSA nares was -ve and zosyn was kept. Urine strep. pneumo and legionella were negative. sputum culture grew normal oral melanie. Daily CXR were done to rule out pneumothorax as the patient recently had a LLL EBV. Patient was transitioned to Augmentin on the day of discharge for a total of antibiotics of 14 days. Infectious Disease: PPD Statusnot given MRSAno VREno C. Diffno Other Resistant Organismno Isolation Typenone Provider FINAL REVIEW of Orders: Final Review: Final Review of Medication Reconciliation and Orders Completedby Physician Reviewing Ginette Champion MD (Resident) at 15-Mar-2021 13:39:15 Appointments: Follow-Up Appointment 01: Physician/Dept/ServiceDr. Viraj Maloney Primary Care Physician Scheduled Date/[id number] 09:00 [id number] [place] [address] Phone [phone] CommentsPlease arrive 10-15 minutes early, bring photo ID, insurance cards, discharge summary, and a list of current medications. Please call the office if you need to change this appointment. Follow-Up Appointment 02: Physician/Dept/ServiceLo al Electrical Design Technologist Reason for ReferralCOPD Call to Schedule in1 week [facility] Electronic Signatures: Max Champion ( (Resident)) (Signed 15-Mar-2021 13:39) Authored: Discharge Orders, Hospital Course (Home Care/Gold Form), Provider FINAL REVIEW of Orders, Appointments Franki Palacios (Resident)) (Signed 15-Mar-2021 08:29) Authored: Discharge Orders, Hospital Course (Home Care/Gold Form), Provider FINAL REVIEW of Orders Arleth Solares ( (Resident)) (Signed 11-Mar-2021 20:21) Authored: Discharge Orders, Hospital Course (Home Care/Gold Form), Gold Form - Channel Sales Manager Summary Alyson Cao (PT ACC REP) (Signed 15-Mar-2021 11:40) Authored: Discharge Orders, Appointments Last Updated: 15-Mar-2021 13:39 by Max Champion ( (Resident)) [facility] Follow Up (Pulmonary Medicin e)on 03-11-2021 Follow Up (Pulmonary Medicine) Diagnoses/Problems Emphysema/COPD (492.8) (J43.9) Pneumonia (486) (J18.9) Patient Discussion/Summary 1. Emphysema / Chronic hypoxemic respiratory failure - severe hyperinflation with chronic respiratory failure, completed pulmonary rehab with improvement. Patient had bronchoscopic lung volume reduction with endobronchial valve placement. He did well and was discharged home. Fevers with worsening SOB since discharge. Completed course of levaquin with continued fever and SOB. CT with infiltrates concerning for pneumonia. - will admit for IV ATB 2. Alpha-1 antitrypsin deficiency -Continue Prolastin Patient seen and discussed with Dr. Salinas Ruiz Chief Complaint Follow up patient with concerns for blood in sputum, SOB with exertion and elevated temperature. History of Present IllnessMr. Coley is a 66 year old CM (former smoker) here for follow up of emphysema and chronic hypoxic respiratory failure. He had endobronchial valve placement on 02/28/21. Mr. Coley underwent endobronchial valve placement with Dr. Ruiz since last visit. He has been having fevers for which Dr. Ruiz prescribed him antibiotics. He continues to have fevers in the evening. His temperature was up to 101.5. Yesterday it was 100.8. He just completed his course of levaquin. On Sunday he was tired and short of breath -- on 4L he dropped down to 77%. He has a productive cough - in the hospital it red, but more burgundy was streaks. He coughed up bright red blood today streaked into his mucous. He has had wheezing which is new since valve was placed. Wheezing can clear with coughing with getting mucous out. He has significant VANESSA just showering or ADLs. He had to get the wheelchair to come up to clinic today. He states he was doing tons of laps on tower 3 without issue before he went home. He denies any SOB at rest or chest pain. 12/15/20: Mr. Coley is a 65 year old male former smoker with emphysema and chronic hypoxemic respiratory failure who presents today for evaluation for BLVR. HPI: Mr. Valles was started on supplemental oxygen in May 2020 and was found to have alpha-1 antitrypsin deficiency and started on Prolastin in June 2020. He completed pulmonary rehab, and noted improvement in his breathing. He presents today for evaluation for BLVR. denies fevers, chills, or nights sweats denies shortness of breath at rest, or significant dyspnea on exertion, mMRC Dyspnea Score = 2-3 denies cough, wheezing, hemoptysis, or stridor denies chest pain, orthopnea, or lower extremity edema denies nausea, vomiting, abdominal pain, odynophagia, dysphagia, heartburn, anorexia, or weight loss denies sinus congestion, post-nasal drip, epistaxis, or hoarseness of voice Inhalers / Nebulized medications / Oxygen: Trelegy Albuterol Oxygen Immunizations: Influenza COVID-19 - 11/16/20 Pneumovax - April 2020 Prevnar Social History: Tobacco: Former smoker - quit 2015, smoked 1-2 ppd prior Imaging history: (I have personally reviewed the imaging below) CT chest 12/15/2020 -> severe emphysema, 2 mm RUL nodule PFTs: 05/18/2020 Spirometry: FVC = 4.04 L (99% predicted) FEV1 = 1.23 L (40% predicted) FEV1/FVC = 30% DLCO: 43% predicted Lung volumes: TLC = 130% predicted, RV = 182% predicted, RV/TLC = 48% 6MWT: 05/18/2020 - RA -> 4L/min SpO2 93% -> 82% (placed on oxygen) HR 92 -> 122 [place] 0.5 -> 2 Actual meters walked 274 m / predicted lower limit 308 m Echo: 12/06/2020 -> EF 55%, normal RV size AND function, mildly dilated RA, normal LA, normal valves, RVSP 17 mmHg Family History: +COPD +Leukemia +gastric cancer Active Problems Dwkeb-7-micobjtmmbz deficiency (273.4) (E88.01) Chronic respiratory failure with hypoxia (518.83,799.02) (J96.11) Emphysema/COPD (492.8) (J43.9) Pre-op evaluation (V72.84) (Z01.818) Pre-op testing (V72.84) (Z01.818) SOB (shortness of breath) (786.05) (R06.02) Family History Family history of chronic obstructive pulmonary disease (V17.6) (Z82.5) Family history of leukemia (V16.6) (Z80.6) Family history of malignant neoplasm of stomach (V16.0) (Z80.0) Social History Former smoker (V15.82) (Z87.891) Allergies No Known Allergies Recorded By: Darlene Pace; 12/15/2020 2:39:54 PM Current Meds Medication NameInstruction Albuterol Sulfate HFA 108 (90 Base) MCG/ACT Inhalation Aerosol SolutionINHALE 1 TO 2 PUFFS BY MOUTH EVERY 4 TO 6 HOURS NEEDED Aspirin 81 MG Oral Tablet Delayed ReleaseTAKE 1 TABLET DAILY. Multiple Vitamins Oral TabletTAKE 1 TABLET DAILY. Oxygen4 liters Primidone 250 MG Oral TabletTAKE 1 TABLET TWICE DAILY. Primidone 50 MG Oral Tabletonce a day at lunch Prolastin-C 1000 MG/20ML Intravenous Solutionweekly Trelegy Ellipta 100-62.5-25 MCG/INH Inhalation Aerosol Powder Breath Activated1 inhalation daily. Rinse after. Vitamin E 400 UNIT Oral CapsuleTAKE DIRECTED. Vitals Vital Signs Recorded: 11Mar2021 01:01PM Gkikepgaswy08.4 C Heart Rate92 Systolic1 (more content not included)... Normal [facility] Order Reconciliationon 03-11 Order Reconciliation Page 1 Admission Reconciliation Document Reconciliation Type: Admission requested on behalf of Max Champion (Resident) done by Max Champion ( (Resident)) Admission - Reconciliation: 11-Mar-2021 16:07 by: Max Champion ( (Resident)) Home MedicationsEnteredLast Dose TakenReconciled with current Order Reconciliation Comment/ Additional Information albuterol 90 mcg/inh inhalation aerosol with adapter 2 puff(s) inhaled every 4 hours, As [id number] Albuterol 2.5 mg/ 3 mL Nebulizer Soln (PROVENTIL)DOSE = 3 mL Inhalation Every 4 Hours via Nebulizeralbuterol 90 mcg/inh inhalation aerosol with adapter continued as the inpatient order Albuterol 2.5 mg/ 3 mL Nebulizer Soln Aspirin Low Dose 81 mg oral tablet, chewable 1 orally once a [id number] Aspirin Chewable Tablet, ChewableDOSE = 81 mg Oral DailyAspirin Low Dose 81 mg oral tablet, chewable continued as the inpatient order Aspirin Chewable Multiple Vitamins oral tablet 1 tab(s) orally once a [id number] Vitamin B Complex with C EachDOSE = 1 each Oral DailyMultiple Vitamins oral tablet continued as the inpatient order Vitamin B Complex with C primidone 250 mg oral tablet 1 orally every 12 [id number] Primidone Tablet (MYSOLINE)DOSE = 250 mg Oral 2 Times a Dayprimidone 250 mg oral tablet continued as the inpatient order Primidone primidone 50 mg oral tablet 1 orally once a day (in the afternoon)11-Mar-2021 Primidone Tablet (MYSOLINE)DOSE = 50 mg Oral Daily 1800primidone 50 mg oral tablet continued as the inpatient order Primidone Prolastin-C intravenous solution 1000 milligram(s) / 20mL intravenous weekly on Alpha 1-Proteinase Inhibitor (HUMAN) IV Piggy Back in IV (Total Volume) 50 mL (GLASSIA)DOSE = 1,000 mg Every 7 DaysRecommended Infusion Time: 15 minute(s)Clinician Notes: Weekly on last dose was 03/08, next dose 03/15Prolastin-C intravenous solution continued as the inpatient order Alpha 1-Proteinase Inhibitor (HUMAN) IV Piggy Back Trelegy Ellipta 100 mcg-62.5 mcg-25 mcg/inh inhalation powder 1 puff(s) inhaled once a [id number] Reviewed and Held vitamin E 400 intl units oral capsule 1 cap(s) orally once a [id number] Reviewed and Held [facility] Patient Profile - Adult v2on 03-11-2021 Patient Profile - Adult v2 Profile: Initial Info: How to be AddressedRandy(1) Spoken Language PreferredEnglish (1) Stated Reason for AdmissionI was having fevers at home. Wants Family/Rep Notified of Admissionn/a; family present Notify PCPnotify PCP Informed of Patient Visiting Rightsyes Arrived Fromphysician office Patient Belongingsremains with patient Patient Belongings Remaining with Patientclothing Medications Brought to Hospitalno General Health: Blood Avoidance/Restrictionsnon e(1) Weight in kg111.3 kilogram(s)(2) Weight in rte129.3 pound(s) Weight Methodstated Scale Typebed Height in cm170.1 centimeter(s) Height in feet5 feet(2) Height in inches7 inch(es)(2) Height Methodstated (2) BMI (kg/m2)38.466 square meter RSP Based Care: How would you like to participate in your carecommunication What is the number one concern for you during this hospitalizationgetting better What is the most important thing we can do to support you during this hospitalizationgetting well Is there anything we need to know to best care for youno Substance: Smoking Statusnever smoker Health Mgmt: Symptoms/Conditions Managed at Homerespiratory Respiratory Symptoms/ConditionsCOPD Respiratory Management Strategiesoxygen therapy Respiratory Managementmanaged Relationship/Environ: Resource/Environmental Concernsnone Primary Source of Support/Comfortspouse Lives Withspouse Living Arrangementshouse Services Anticipated at Transitionnone Anticipated Transition Tohome Significant IndicatorsComplete Information Review: Allergies, Home Meds and Significant Events have been Reviewed and Verified with Patient/Familyyes ALLERGY, INTOLERANCE, ADVERSE EVENT: Allergies: No Known Allergies: Active Electronic Signatures: Lisa Hernandez) (Signed 11-Mar-2021 17:56) Authored: Initial Info, General Health, RSP Based Care, Substance, Health Mgmt, Relationship/Environ, Additional Information Last Updated: 11-Mar-2021 17:56 by Lisa Hernandez (JIGAR) References: 1. Data Referenced From Patient Profile - Procedure-H and P 25-Feb-2021 15:43 2. Data Referenced From 1. Vital Signs 11-Mar-2021 15:12 [facility] RESPIRATORY CULT./SM,LOWERon 03-11-2021 RESPIRATORY CULT./SM,LOWER PATIENT: BROCK COLEY LOCATION: [address] BILL#: [id number] : 53 AGE: SEX: M ORDERED BY: MIRIAM MARKS SOURCE: SPUTUM COLLECTED: 03/11/21 17:22 ANTIBIOTICS AT DIO.: RECEIVED : 03/11/21 20:01 SITE: R E S U L T S GRAM STAIN FINAL 03/12/21 09:04 THE GRAM STAIN INDICATES THAT THE SPECIMEN CONTAINS SIGNIFICANT SALIVARY CONTAMINATION. THE CULTURE WILL NOT BE PROCESSED IT WILL BE OF LIMITED DIAGNOSTIC VALUE.A SPECIMEN OF BETTER QUALITY SHOULD BE SUBMITTED IF CLINICALLY INDICATED. RESPIRATORY CULT./SM,LOWER CANCELLED 03/12/21 09:05 [facility] Comment on above: Performed By: #### C RP #### [facility] [id number] [place] [address] STAPH/MRSA SCREENon 03-11-20 21 STAPH/MRSA SCREEN PATIENT: JAMIR COLEY LOCATION: [address] BILL#: [id number] : 53 AGE: SEX: M ORDERED BY: MIRIAM MARKS SOURCE: MISC COLLECTED: 03/11/21 18:33 ANTIBIOTICS AT DIO.: RECEIVED : 03/11/21 22:02 SITE: Nasal/Groin and Axilla R E S U L T S STAPH/MRSA SCREEN FINAL 03/13/21 10:45 NO Staphylococcus aureus ISOLATED. [facility] Comment on above: Performed By: #### C RP #### [facility] [id number] [place] [address] TH CHEST 2 VIEW PA AND LATon 03-11-2021 TH CHEST 2 VIEW PA AND LAT Patient Name: BROCK COLEY STUDY: TH CHEST 2 VIEW PA AND LAT; 03/11/2021 5:21 pm INDICATION: COPD with HAP. COMPARISON: Prior chest radiograph from 03/03/2021 ACCESSION NUMBER(S): [id number] ORDERING CLINICIAN: MAX CHAMPION FINDINGS: PA and lateral radiographs of the chest were provided. Additional PA dual energy images were also provided. CARDIOMEDIASTINAL SILHOUETTE: Stable mild enlargement of the cardiac silhouette. There is now left-sided mediastinal shift, new since the prior examination. LUNGS: New patchy airspace opacity in the left upper/mid lung field, suggestive of pneumonia. Persistent blunting of the left costophrenic angle consistent with a small left pleural effusion. Additional hazy opacity is seen in the left lower lobe with associated signs of volume loss, suggestive of left lower lobe collapse. No discernible pneumothorax. ABDOMEN: No remarkable upper abdominal findings. BONES: No acute osseous changes. IMPRESSION: 1. New patchy airspace opacity in the left upper/mid lung, consistent with pneumonia. 2. Partial left lower lobe collapse with small left pleural effusion. Electronically signed by: BASILIO OLIVAREZ MD [facility] TH CT CHEST WO CONTRASTon TH CT CHEST WO CONTRAST STUDY: CT Chest without IV Contrast; 03/11/2021 11:19 AM INDICATION: [place] valve, emphysema, shortness of breath. Chronic respiratory failure with hypoxia. COMPARISON: 03/03/2021 XR Chest. ACCESSION NUMBER(S): [id number] ORDERING CLINICIAN: SALINAS RUIZ MD TECHNIQUE: CT of the chest was performed without contrast. Automated mA/kV exposure control was utilized and patient examination was performed in strict accordance with principles of ALARA. FINDINGS: MEDIASTINUM: The heart is normal in size without pericardial effusion. LUNGS/PLEURA: There is no pneumothorax.. There is mucus plugging in the left lower lobe. There are diffuse patchy airspace opacities in the right lung suggesting acute pneumonia. There is evidence of atelectasis and volume loss in the left lower lobe with small left pleural effusion. Lungs demonstrate underlying emphysematous changes with mosaic attenuation. LYMPH NODES: There are enlarged mediastinal lymph nodes. Prevascular lymph node measures 2.1 x 1.5 cm. There are also enlarged left hilar lymph nodes. UPPER ABDOMEN: Upper abdomen demonstrates no acute pathology. Liver demonstrates fatty morphology. Gallbladder is surgically absent. BONES: There are no acute fractures. No suspicious bony lesions. IMPRESSION: Ground glass opacities left lung suggesting acute pneumonia. Atelectasis and volume loss left lower lobe with small left pleural effusion. Mucous plugging left lower lobe. Underlying emphysematous changes.. Mildly enlarged mediastinal and left hilar lymph nodes. Signed by Radha Santos DO Electronically signed by: CARMENZA SANTOS DO [facility] No Panel Informationon 03-03 Please click on the link to view the study images [facility] Work Phone: Radiologyon 03-03-2021 XR Chest Single view [facility] Work Phone: SINGLE PLANE TOMOGRAMSon SINGLE PLANE TOMOGRAMS Patient Name: BROCK COLEY STUDY: SINGLE PLANE TOMOGRAMS; ; 03/03/2021 10:04 am INDICATION: f/u endobronchial valve insertion LLL. 65-year-old male with L4-1 antitrypsin deficiency, emphysema, hospitalized for bronchoscopic lung volume reduction with endobronchial valve in his left lower lobe. COMPARISON: Chest radiograph 03/03/2021. ACCESSION NUMBER(S): [id number] ORDERING CLINICIAN: AMBER ARROYO FINDINGS: PA chest radiograph as well as tomographic images of the chest were obtained. There has been interval placement of endobronchial valves within the left basilar segments. There is interval increase in left basilar atelectasis/volume loss. Note is made of thickening along the left mainstem bronchus. There is pulmonary hyperinflation noted there is right basilar atelectasis. IMPRESSION: There is an endobronchial valve within left lower lobe bronchus. There has been interval left lower lobe volume loss/atelectasis. I personally reviewed the images/study and I agree with the findings as stated. This study was interpreted at [facility], [place], [place]. Electronically signed by: Ollie HAGER MD [facility] TH CHEST 1 VIEWon 03-03-2021 TH CHEST 1 VIEW Patient Name: BROCK COLEY STUDY: CHEST 1 VIEW; 03/03/2021 5:04 am INDICATION: post LLL endobronchial valve insertion. COMPARISON: 03/02/2021 ACCESSION NUMBER(S): [id number] ORDERING CLINICIAN: ZIYAD WILLINGHAM FINDINGS: AP radiograph of the chest CARDIOMEDIASTINAL SILHOUETTE: The cardiomediastinal silhouette is stable in size and configuration. LUNGS: There is similar coarsening of lung markings bilaterally correlating with diffuse emphysema. There is unchanged hazy left basilar opacity with blunting of left costophrenic angle. No pneumothorax. ABDOMEN: No remarkable upper abdominal findings. BONES: No acute osseous abnormality. IMPRESSION: 1. Similar hazy left basilar opacity, which may represent combination of mild atelectasis with or without small left pleural effusion. 2. Diffuse emphysema. 3. No pneumothorax. Electronically signed by: MANDY JIMENEZ MD [facility] Daily Progress Note-DACRon 0 03-02-2021 Daily Progress Note-DACR Service: DACR Subjective Data: BROCK COLEY is a 65 year old Male who is Hospital Day # 3. Additional Information: Pt seen and examined at bedside. No acute events overnight per RN. Pt companding of some L chest soreness otherwise has no complaints at this time. Objective Data: Objective Information: T PRBPSpO2 [id number]/7993% Date/Time03/02 9: 9: 9: 9: 9:36 Range(36.2C - 36.7C ) (72 - 95 ) (17 - 20 ) (106 - 129 )/ (57 - 79 ) (93% - 98% ) As of 02-Mar-2021 09:36:00, patient is on 4 L/min of oxygen via nasal cannula. Pain reported at 03/02 8:10: 0 = None Physical Exam Narrative: Physical Exam: Constitutional: Well appearing WM sitting up in bed in NAD Eyes: PERRL, EOMI, anicteric ENMT: MMM, on 4 L NC Head/Neck: no JVD, supple Respiratory/Thorax: faint basilar crackles in LLL, on 4L NC Cardiovascular: RRR, no m/r/g, 2+pp Gastrointestinal: +BS, soft, ND, NTTP Musculoskeletal: normal muscle bulk, no swollen joints Extremities: no edema or cyanosis Neurological: A&Ox4, normal strength & sensation Psychological: Appropriate mood and behavior Skin: warm and dry Medication: Medications: Continuous Medications ------- No continuous medications are active Scheduled Medications ------- 1. Aspirin Chewable: 81 mg Oral Daily 2. Enoxaparin SubCutaneous: 40 mg SubCutaneous Every 24 Hours 3. Fluticasone 100 microgram -Salmeterol 50 microgram/ Inh: 1 inhalation Inhalation Every 12 Hours 4. Multivitamin with Minerals: 1 tablet(s) Oral Daily 5. Primidone: 250 mg Oral 2 Times a Day 6. Primidone: 50 mg Oral Daily Before Second Meal 7. Tiotropium 18 micrograms/ Inhalation: 1 inhalation Inhalation Daily PRN Medications ------- 1. Albuterol 90 micrograms/ Inhalation MDI: 2 inhalation Inhalation Every 4 Hours 2. Melatonin: 3 mg Oral At Bedtime Assessment and Plan: Code Status: Code StatusFull Code Assessment: Mr. 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 Currently HDS on his baseline O2 requirement of 4L NC. Admitted for observation to ensure no pneumothorax post-procedure. Breathing stable on jhome 4L NC, daily CXR so far w/o PTX, will tentatively plan for d/c tomorrow (03/03). #Emphysema s/p endobronchial valve insertion to LLL #Chronic hypoxemic respiratory failure - c/w home 4L NC - titrate SpO2 to 88-92% - daily CXRs - watch for s/s of PTX including pleuritic chest pain and acute shortness of breath - Thoracic surgery following given high risk of PTX - c/w albuterol PRN, home Trelegy subbed for Spiriva while inpatient given non-forumlary -Added Advair for LABA/ICS #A1AT deficiency - on weekly Prolastin-C (follows with Dr. Mims whom patient reports said it is ok for him to miss 1 week while he is hospitalized for this procedure and can continue as an outpatient #Familial tremors - c/w home Primidone #MISC - c/w ASA 81, MVMs Diet: Regular GI ppx: none DVT ppx: Lovenox, SCDs Access: PIV FULL CODE (confirmed on admission) Attestation: Note Completion: I am a: Resident/Fellow Attending AttestationI saw and evaluated the patient. I personally obtained the marx and critical portions of the history and physical exam or was physically present for marx and critical portions performed by the resident/fellow. I reviewed the resident/fellows documentation and discussed the patient with the resident/fellow. I agree with the resident/fellows medical decision making as documented in the note. I personally evaluated the patient [id number] Electronic Signatures: Thang Lorenzo) (Signed 02-Mar-2021 21:32) Authored: Note Completion Co-Signer: Objective Data, Assessment and Plan, Note Completion mAber Arroyo (Resident)) (Signed 02-Mar-2021 15:30) Authored: Service, Subjective Data, Objective Data, Assessment and Plan, Note Completion Last Updated: 02-Mar-2021 21:32 by Thang Lorenzo) [facility] Order Reconciliationon 03-02 Order Reconciliation Page 1 Discharge Reconciliation Document Reconciliation Type: Discharge requested on behalf of Amber Arroyo (Resident) done by Amber Arroyo (Resident)) Discharge - Partial Reconciliation: 02-Mar-2021 17:17 by: Ziyad Willingham (Resident)) Discharge - Partial Reconciliation: 03-Mar-2021 09:16 by: Amber Arroyo (Resident)) Discharge - Reconciliation: 03-Mar-2021 12:02 by: Amber Arroyo (Resident)) Home Medications EnteredHOME MEDICATIONS AT DISCHARGE DateReconciliation Comment/ Additional Information albuterol 90 mcg/inh inhalation aerosol with adapter 2 puff(s) inhaled every 4 hours, As Needed 28-Feb-2021 18:37 albuterol 90 mcg/inh inhalation aerosol with adapter 2 puff(s) inhaled every 4 hours, As Needed 28-Feb-2021 18:37 albuterol 90 mcg/inh inhalation aerosol with adapter is continued as albuterol 90 mcg/inh inhalation aerosol with adapter Aspirin Low Dose 81 mg oral tablet, chewable 1 orally once a day 28-Feb-2021 18:45 Aspirin Low Dose 81 mg oral tablet, chewable 1 orally once a day 28-Feb-2021 18:45 Aspirin Low Dose 81 mg oral tablet, chewable is continued as Aspirin Low Dose 81 mg oral tablet, chewable Multiple Vitamins oral tablet 1 tab(s) orally once a day 28-Feb-2021 18:45 Multiple Vitamins oral tablet 1 tab(s) orally once a day 28-Feb-2021 18:45 Multiple Vitamins oral tablet is continued as Multiple Vitamins oral tablet primidone 250 mg oral tablet 1 orally every 12 hours 28-Feb-2021 18:43 primidone 250 mg oral tablet 1 orally every 12 hours 28-Feb-2021 18:43 primidone 250 mg oral tablet is continued as primidone 250 mg oral tablet primidone 50 mg oral tablet 1 orally once a day (in the afternoon) 28-Feb-2021 18:44 primidone 50 mg oral tablet 1 orally once a day (in the afternoon) 28-Feb-2021 18:44 primidone 50 mg oral tablet is continued as primidone 50 mg oral tablet Prolastin-C intravenous solution 1000 milligram(s) / 20mL intravenous weekly on Tuesdays 18:41 Prolastin-C intravenous solution 1000 milligram(s) / 20mL intravenous weekly on Tuesdays 18:41 Prolastin-C intravenous solution is continued as Prolastin-C intravenous solution Trelegy Ellipta 100 mcg-62.5 mcg-25 mcg/inh inhalation powder 1 puff(s) inhaled once a day 28-Feb-2021 18:47 Trelegy Ellipta 100 mcg-62.5 mcg-25 mcg/inh inhalation powder 1 puff(s) inhaled once a day 28-Feb-2021 18:47 Trelegy Ellipta 100 mcg-62.5 mcg-25 mcg/inh inhalation powder is continued as Trelegy Ellipta 100 mcg-62.5 mcg-25 mcg/inh inhalation powder vitamin E 400 intl units oral capsule 1 cap(s) orally once a day 28-Feb-2021 18:46 vitamin E 400 intl units oral capsule 1 cap(s) orally once a day 28-Feb-2021 18:46 vitamin E 400 intl units oral capsule is continued as vitamin E 400 intl units oral capsule Current OrdersDateHOME MEDICATIONS AT DISCHARGE DateReconciliation Comment/ Additional Information Albuterol 90 micrograms/ Inhalation MDI (PROVENTIL, VENTOLIN)DOSE = 2 inhalation Every 4 Hours via MDI, PRN Shortness of BreathNotes from Pharmacy: [facility] 28-Feb-2021 16:01 Albuterol 90 micrograms/ Inhalation MDI is not required Aspirin Chewable Tablet, ChewableDOSE = 81 mg Oral Daily 28-Feb-2021 16:01 Aspirin Chewable is not required Enoxaparin SubCutaneous (LOVENOX)DOSE = 40 mg SubCutaneous Every 24 Hours 28-Feb-2021 16:01 Enoxaparin SubCutaneous is not required Fluticasone 100 microgram -Salmeterol 50 microgram/ Inh Powder (ADVAIR DISKUS)DOSE = 1 inhalation Every 12 HoursNotes from Pharmacy: [facility] 01-Mar-2021 13:15 Fluticasone 100 microgram -Salmeterol 50 microgram/ Inh is not required Melatonin TabletDOSE = 3 mg Oral At Bedtime, PRN Insomnia 28-Feb-2021 16:01 Melatonin is not required Multivitamin with Minerals TabletDOSE = 1 tablet(s) Oral Daily 28-Feb-2021 16:01 Multivitamin with Minerals is not required Primidone Tablet (MYSOLINE)DOSE = 250 mg Oral 2 Times a Day 28-Feb-2021 16:01 Primidone is not required Primidone Tablet (MYSOLINE)DOSE = 50 mg Oral Daily Before Second Meal 28-Feb-2021 16:01 Primidone is not required Tiotropium 18 micrograms/ Inhalation Capsule (SPIRIVA HANDIHALER)DOSE = 1 inhalation DailyClinician Notes: hospital substitute for home Trelegy ElliptaNotes from Pharmacy: Substitution for Fluticasone 100 mcg - Umeclidinium 62.5 mcg - Vilanterol 25 28-Feb-2021 16:01 Tiotropium 18 micrograms/ Inhalation is not required All Active Home Medications at time of Discharge Reconciliation: 03-Mar-2021 12:02 albuterol 90 mcg/inh inhalation aerosol with adapter 2 puff(s) inhaled every 4 hours, As Needed Aspirin Low Dose 81 mg oral tablet, chewable 1 orally once a day Multiple Vitamins oral tablet 1 tab(s) orally once a day primidone 250 mg oral tablet 1 orally every 12 hours primidone 50 mg oral tablet 1 orally once a day (in the afternoon) Prolastin-C intravenous solution 1000 milligram(s) / 20mL intravenous weekly o (more content not included)... Normal [facility] Radiologyon 03-02-2021 XR Chest Single view Normal [facility] Work Phone: [phone] CHEST 1 VIEWon 03-02-2021 TH CHEST 1 VIEW Patient Name: BROCK COLEY STUDY: CHEST 1 VIEW; 03/02/2021 4:23 am INDICATION: AM CXR, daily cxr following endobronchial valve placement, eval for pneumothorax. COMPARISON: 03/01/2021 ACCESSION NUMBER(S): [id number] ORDERING CLINICIAN: COLTON RICH FINDINGS: Portable AP chest radiograph. Endobronchial valve overlying the left hilum is again seen. CARDIOMEDIASTINAL SILHOUETTE: Cardiomediastinal silhouette is stable in size and configuration. The left cardiac border is again noted to be partially obscured. LUNGS: Persistent bilateral hilar interstitial prominence, slightly improved. Persistent blunting of the left CP angle with slightly improved bibasilar hazy opacities, left greater than right. No discernible pneumothorax. ABDOMEN: No remarkable upper abdominal findings. BONES: No acute osseous changes. IMPRESSION: 1. Persistent small left pleural effusion with slightly improved bibasilar atelectasis. No discernible pneumothorax. 2. Improving bilateral hilar interstitial prominence, possibly representing resolving mild pulmonary edema. Electronically signed by: BASILIO OLIVAREZ MD Normal [facility] Daily Progress Note-DACRon 0 03-01-2021 Daily Progress Note-DACR Service: DACR Subjective Data: BROCK COLEY is a 65 year old Male who is Hospital Day # 2. -No acute events overnight -Patient feeling well this AM, no dyspnea. Objective Data: Objective Information: T PRBPSpO2 [id number]/5797% Date/Time03/01 14: 14: 14: 14: 14:35 Range(35.7C - 36.7C ) (57 - 80 ) (15 - 19 ) (103 - 149 )/ (54 - 76 ) (96% - 99% ) As of 01-Mar-2021 14:35:00, patient is on 4 L/min of oxygen via nasal cannula. Pain reported at 03/01 8:30: 0 = None Physical Exam Narrative: Physical Exam: Constitutional: Well appearing WM sitting up in bed in NAD Eyes: PERRL, EOMI, anicteric ENMT: MMM Head/Neck: no JVD, supple Respiratory/Thorax: CTAB, normal effort, on 4L NC, no w/r/r Cardiovascular: RRR, no m/r/g, 2+pp Gastrointestinal: +BS, soft, ND, NTTP Musculoskeletal: normal muscle bulk, no swollen joints Extremities: no edema or cyanosis Neurological: A&Ox4, normal strength & sensation Psychological: Appropriate mood and behavior Skin: warm and dry Assessment and Plan: Code Status: Code StatusFull Code Advance Care Planning: Advance Care Planning: Patient didn't wish to or was unable to provide advance care plan Assessment: Mr. 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 Currently HDS on his baseline O2 requirement of 4L NC. Admitted for observation to ensure no pneumothorax post-procedure. Will continue to monitor patient for total of 3 days to ensure no pneumothorax. 03/01 Updates -AM CXR -Added Advair for LABA/LAMA/ICS #Emphysema s/p endobronchial valve insertion to LLL #Chronic hypoxemic respiratory failure - c/w home 4L NC - titrate SpO2 to 88-92% - daily CXRs - watch for s/s of PTX including pleuritic chest pain and acute shortness of breath - Thoracic surgery following given high risk of PTX - c/w albuterol PRN, home Trelegy subbed for Spiriva while inpatient given non-forumlary -Added Advair for LABA/ICS #A1AT deficiency - on weekly Prolastin-C (follows with Dr. Mims whom patient reports said it is ok for him to miss 1 week while he is hospitalized for this procedure and can continue as an outpatient #Familial tremors - c/w home Primidone #MISC - c/w ASA 81, MVMs Diet: Regular GI ppx: none DVT ppx: Lovenox, SCDs Access: PIV FULL CODE (confirmed on admission) Attestation: Note Completion: I am a: Resident/Fellow Attending AttestationI saw and evaluated the patient. I personally obtained the marx and critical portions of the history and physical exam or was physically present for marx and critical portions performed by the resident/fellow. I reviewed the resident/fellows documentation and discussed the patient with the resident/fellow. I agree with the resident/fellows medical decision making as documented in their note with the exception/addition of the following: I personally evaluated the patient [id number] Comments/ Additional Findings 65-year-old man with alpha-1 antitrypsin deficiency-associated COPD admitted after bronchoscopic lung volume reduction procedure yesterday, 02/28, in the left lower lobe. Given significant risk (approximately 1 in 3) of pneumothorax, requires inpatient observation. FiO2 at baseline. Usually uses Trelegy Ellipta, and we will need to update medications to include ICS/LABA/LAMA with as needed nebulized bronchodilator. He did not have any chest pain today on rounds. He does not strike me as being in any state of COPD exacerbation. We will follow chest radiographs. I personally reviewed the image from this morning. There is no evidence of pneumothorax. Electronic Signatures: Colton Rich (Resident)) (Signed 01-Mar-2021 15:18) Authored: Service, Subjective Data, Objective Data, Assessment and Plan, Note Completion Thang Lorenzo) (Signed 01-Mar-2021 16:07) Authored: Note Completion Last Updated: 01-Mar-2021 16:07 by Thang Lorenzo) Normal [facility] Discharge Planning [id number] 0 03-01-2021 Discharge Planning Note2 Discharge Planning: Needs Prior to Discharge (ex. Home Care Orders, IV/O2 prescriptions) F/u appts Discharge Barriers (ex. 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 Team members present: DOMINIQUE and MD Plan per Medical/Surgical team: Needs to be monitored 3 days after Bronch procedure, monitoring labs and vitals Payer: Medicare Status: Observation Discharge disposition: Home no needs Potential Barriers: None at this time ADOD: 03/04 Joel. Kusum Eubanks RN BSN Transitional Jig Grinder Set Up Operator [phone] Transitional Jig Grinder Set Up Operator Note: 03/01/2021@ 13:53 Met with patient/ to introduce myself, role and discus discharge planning. Patient lives with his spouse. Independent in all ADL's. Requires no assist devices for ambulation. Denies active home care or home care needs. Will continue to monitor patient for all home going needs. Abbey Portillo RN [facility] [phone] 03/03/21 9:30 AM Transitional Care Coordination Progress Note: Patient discussed during interdisciplinary rounds. Team members present: DOMINIQUE and MD Plan per Medical/Surgical team: Pt scheduled for priority Tomogram today, monitoring labs and vitals Payer: Medicare Status: Inpatient Discharge disposition: Home no needs Potential Barriers: None at this time ADOD: 03/04 M. Kusum Eubanks RN BSN Transitional Jig Grinder Set Up Operator [phone] Assessment: Discharge Planning Assessment Discharge Planning Assessment Completed byAbbey Portillo RN [facility] [phone] Primary Contact Name and NumberDarjose angel Valles () [phone] Tacho Ruiz DO Preferred [facility]acy Name/Location[facility] Medication Adherence/Afford/Obtainye s InsuranceMedicare A/B and Aetna Sr Supplement Lives Withspouse Living Arrangementshouse Recent Falls/ Injury/ Need Assist with AmbulationN/A Prior Level of FunctioningIndependent Home Care Agency/Support ServicesN/A Diabetic/Supplies NeededN/A Hemodialysis ScheduleN/A Social Determinants of Health IdentifiedHealth Literacy Transportation Home Who/HowDarlene will be providing transportation when discharged. Anticipated Changes Related to Illnessnone Equipment Needed After Dischargenone Anticipated Discharge Facility/Level of Care NeedsHome Discharge Planning CommentsPatient feel safe at home and denies any issues with making follow up appointments or getting his medications. Electronic Signatures: Abbey Portillo (CLIN COOR) (Signed 01-Mar-2021 14:07) Authored: Discharge Planning, Assessment Aditya Arnold (ADV CLIN N) (Signed 03-Mar-2021 13:11) Authored: Discharge Planning Riri Eubanks (CLIN COOR) (Signed 03-Mar-2021 10:40) Authored: Discharge Planning, Assessment Aruna Turcios (PCN) (Signed 02-Mar-2021 10:27) Authored: Discharge Planning Last Updated: 03-Mar-2021 13:11 by Aditya Arnold (ADV CLIN N) Normal [facility] Discharge [id number] Discharge Profile2 Discharge Orders: Anticipated Discharge Date: Anticipated Discharge [id number] DNAR: DNAR Status: none Hospital Course (Home Care/Gold Form): Hospital Course: Hospital Course: include significant abnormal lab values Mr. 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 Currently HDS on his baseline O2 requirement of 4L NC. Admitted for observation to ensure no pneumothorax post-procedure. On admission, the patient was doing well with no evidence of pneumothorax. The patient was monitored for (__) days and ( ) evidence of pneumothorax during that time. The patient was discharged to (__). Provider FINAL REVIEW of Orders: Final Review: Final Review of Medication Reconciliation and Orders Completedby Physician Reviewing ProviderAmber Arroyo MD (Resident) at 03-Mar-2021 12:15:36 Appointments: Follow-Up Appointment 01: Physician/Dept/ServiceDr. Ruiz (Pulmonology) Reason for Referralhospital f/u visit CommentsYou will be called with the details of the appointment in the next few days. Please call [phone] ( ) if you do not hear back by then to inquire about appointment. Please arrive 15 minutes early and bring photo ID, insurance card, and medication list. If unable to attend appointment, please call to cancel within 24 hours. Electronic Signatures: Colton Rich ( (Resident)) (Signed 01-Mar-2021 15:54) Authored: Discharge Orders, Hospital Course (Home Care/Gold Form), Gold Form - Channel Sales Manager Summary Amber Arroyo ( (Resident)) (Signed 03-Mar-2021 12:15) Authored: Discharge Orders, Provider FINAL REVIEW of Orders, Appointments Last Updated: 03-Mar-2021 12:15 by Amber Arroyo ( (Resident)) Normal [facility] GLUCOSE-POCTon 03-01-2021 Glucose [Mass/Vol] 110 mg/dL High 74 - 99 [facility] Comment on above: Performed By: #### C BCDF #### [facility] [address] [place] [address] Glucose [Mass/Vol] 90 mg/dL Normal 74 - 99 [facility] Comment on above: Performed By: #### C RP #### [facility] [address] [place] [address] Glucose [Mass/Vol] 124 mg/dL High 74 - 99 [facility] Comment on above: Performed By: #### G KATELYN ####[id number] [place] [address] Laboratory - Chemistry and C hemistry - challengeon 03-01-2021 Glucose [Mass/Vol] 110 mg/dL above high threshold 74 - 99 [facility] Work Phone: Glucose [Mass/Vol] 90 mg/dL 74 - 99 [facility] Work Phone: Glucose [Mass/Vol] 124 mg/dL above high threshold 74 - 99 [facility] Work Phone: Radiologyon 03-01-2021 XR Chest Single view Normal [facility] Work Phone: TH CHEST 1 VIEWon 03-01-2021 TH CHEST 1 VIEW Patient Name: BROCK COLEY STUDY: CHEST 1 VIEW; 03/01/2021 7:23 am INDICATION: pneumothorax. COMPARISON: 02/28/2021 ACCESSION NUMBER(S): [id number] ORDERING CLINICIAN: BRANDON EISENBERG FINDINGS: AP radiograph of the chest was provided. Left lobe endobronchial valves overlie the left hilum. CARDIOMEDIASTINAL SILHOUETTE: Cardiomediastinal silhouette is stable in size and configuration. The left cardiac border is partially obscured. LUNGS: Persistent bilateral perihilar and interstitial prominence. There is bibasilar haziness with obscuration of the left hemidiaphragm and left costophrenic angle. No sizable pneumothorax is seen. ABDOMEN: No remarkable upper abdominal findings. BONES: No acute osseous changes. IMPRESSION: 1. Small left pleural effusion with associated basilar atelectasis. 2. No significant change in bilateral perihilar and interstitial prominence, likely due to chronic underlying lung changes and emphysema with component of mild interstitial edema not excluded. 3. Left endobronchial valves as above. No sizable pneumothorax seen. I personally reviewed the images/study and I agree with the findings as stated. This study was interpreted at [facility], [place], [place]. Electronically signed by: CAMERON SALMERON MD [facility] Consult-Thoracic and Esophag eal Surgeryon 02-28-2021 Consult-Thoracic and Esophageal Surgery Service: Service: Thoracic & Esophageal Surgery Consult: Consult requested by (Attending Name): Salinas Ruiz Reason: 65yo M s/p BLVR w/ endobronchial valve to LLL; high risk for pneumothorax History of Present Illness: HPI: BROCK COLEY is a 65 year old Male with history of smoking (quit 2016), emphysema, alpha-1 antitrypsin deficiency, who underwent endobronchial valve placement with Pulmonology today, for whom thoracic surgery is consulted in regards to pneumothorax prevention/possibility, given the increased risk for ptx after EBV placement. PMH: as above PSH: cholecystectomy 2009 Meds: Albuterol Trelegy Ellipta Prolstain-C Vitamin E ASA 81 Multivitamin Primodone Allergies: NKDA FHX: COPD, leukemia, gastric cancer Soc: 1ppd smoker, quit 2016 no etoh, drugs Review Family/Social History and ROS: Social History: Smoking Status: former smoker (1) Allergies: No Known Allergies: Objective: Objective Information: T PRBPSpO2 [id number]/5499% Date/Time03/01 6: 6: 6: 6: 6:50 Range(35.7C - 36.7C ) (57 - 80 ) (18 - 19 ) (103 - 149 )/ (54 - 76 ) (97% - 99% ) As of 01-Mar-2021 02:30:00, patient is on 4 L/min of oxygen via nasal cannula. Physical Exam by System: Constitutional: Well developed, awake/alert/oriented x3, no distress, alert and cooperative Eyes: EOMI, clear sclera Respiratory/Thorax: normal breath sounds with good chest expansion, thorax symmetric Cardiovascular: Regular, rate and rhythm Gastrointestinal: Nondistended, soft, non-tender Musculoskeletal: ROM intact, normal strength Neurological: alert and oriented Psychological: appropriate Skin: Warm and dry, no lesions, no rashes Medications: Medications: Continuous Medications ------- No continuous medications are active Scheduled Medications ------- 1. Aspirin Chewable: 81 mg Oral Daily 2. Enoxaparin SubCutaneous: 40 mg SubCutaneous Every 24 Hours 3. Multivitamin with Minerals: 1 tablet(s) Oral Daily 4. Primidone: 250 mg Oral 2 Times a Day 5. Primidone: 50 mg Oral Daily Before Second Meal 6. Tiotropium 18 micrograms/ Inhalation: 1 inhalation Inhalation Daily PRN Medications ------- 1. Albuterol 90 micrograms/ Inhalation MDI: 2 inhalation Inhalation Every 4 Hours 2. Melatonin: 3 mg Oral At Bedtime Radiology Results: Results: Impression: Xray Chest 1 View [Mar 01 2021 6:46AM] Impression: 1. No pneumothorax. Endobronchial valves overlie the left hilum. Prominence of the peribronchial interstitium and correlate with small airway disease. Xray Chest 1 View [Feb 28 2021 4:59PM] Assessment: 65 yo male who underwent EBV today with pulmonology, for whom thoracic surgery is consulted for possible chest tube placement in the event the patient develops a pneumo postop. Recs: - available PRN - daily CXR - on telemetry floor To be discussed with Dr. Eisenberg. Madhuri Nur MD PGY-2 Thoracic Surgery [id number] Consult Status: Consult Order ID: [id number] Attestation: Note Completion: I am a: Resident/Fellow Attending AttestationI saw and evaluated the patient. I personally obtained the marx and critical portions of the history and physical exam or was physically present for marx and critical portions performed by the resident/fellow. I reviewed the resident/fellows documentation and discussed the patient with the resident/fellow. I agree with the resident/fellows medical decision making as documented in the note. I personally evaluated the patient [id number] Electronic Signatures: Madhuri Nur (Resident)) (Signed 01-Mar-2021 09:00) Authored: Service, History of Present Illness, Review Family/Social History and ROS, Allergies, Objective, Assessment/Recommendation s, Note Completion Brandon Eisenberg) (Signed 14-Mar-2021 16:38) Authored: Note Completion Co-Signer: History of Present Illness, Objective, Note Completion Last Updated: 14-Mar-2021 16:38 by Brandon Eisenberg) References: 1. Data Referenced From Consult-Thoracic and Esophageal Surgery 28-Feb-2021 18:32 Normal [facility] Consult-Thoracic and Esophageal Surgery Service: Service: Thoracic & Esophageal Surgery Consult: Consult requested by (Attending Name): Salinas Ruiz Reason: 65yo M s/p BLVR w/ endobronchial valve to LLL; high risk for pneumothorax History of Present Illness: Admission Reason: endobronchial valve placement HPI: BROCK COLEY is a 65 year old Male with a h/o Emphysema/COPD who presented today for placement of an endobronchial valve by interventional pulmonology. Post-op, he was admitted to the telemetry division for close monitoring for development of a pneumothorax. Review Family/Social History and ROS: Family History: Family History: FH: Leukemia Gastric Cancer COPD Social History: Smoking Status: former smoker Constitutional: NEGATIVE: Fever, Chills, Anorexia, Weight Loss, Malaise Eyes: NEGATIVE: Blurry Vision, Drainage, Diploplia, Redness, Vision Loss/ Change ENMT: NEGATIVE: Nasal Discharge, Nasal Congestion, Ear Pain, Mouth Pain, Throat Pain Respiratory: POSITIVE: Shortness of Breath Cardiac: POSITIVE: Dyspnea on Exertion Gastrointestinal: NEGATIVE: Nausea, Vomiting, Diarrhea, Constipation, Abdominal Pain Genitourinary: NEGATIVE: Discharge, Dysuria, Flank Pain, Frequency, Hematuria Musculoskeletal: NEGATIVE: Decreased ROM, Pain, Swelling, Stiffness, Weakness Neurological: NEGATIVE: Dizziness, Confusion, Headache, Seizures, Syncope Psychiatric: NEGATIVE: Mood Changes, Anxiety, Hallucinations, Sleep Changes, Suicidal Ideas Skin: NEGATIVE: Mass, Pain, Pruritus, Rash, Ulcer Endocrine: NEGATIVE: Heat Intolerance, Cold Intolerance, Sweat, Polyuria, Thirst Hematologic/Lymph: NEGATIVE: Anemia, Bruising, Easy Bleeding, Night Sweats, Petechiae Allergic/Immunologic: NEGATIVE: Anaphylaxis, Itchy/ Teary Eyes, Itching, Sneezing, Swelling Breast: NEGATIVE: Pain, Mass, Discharge, Nipple Itching, Gynecomastia Allergies: No Known Allergies: Objective: Objective Information: T PRBPSpO2 Value36.02480925/7698% Date/Time02/28 18: 18: 18: 18: 18: Range(35.7C - 36.2C ) (63 - 73 ) (18 - 18 ) (132 - 135 )/ (69 - 76 ) (97% - 98% ) As of 28-Feb-2021 18:26:00, patient is on 4 L/min of oxygen via nasal cannula. Physical Exam by System: Constitutional: Well developed, awake/alert/oriented x3, no distress, alert and cooperative Eyes: PERRL, ENMT: mucous membranes moist, no apparent injury, Head/Neck: Neck supple, no apparent injury, thyroid without mass or tenderness, Respiratory/Thorax: diminished BS bilat, O2 via NC at 4L/M Cardiovascular: S1S2 reg; tele shows NSR with rate in 70s Gastrointestinal: Nondistended, soft, non-tender, +BS, obese Extremities: no LE edema no calf tenderness Medications: Medications: Continuous Medications ------- No continuous medications are active Scheduled Medications ------- 1. Aspirin Chewable: 81 mg Oral Daily 2. Enoxaparin SubCutaneous: 40 mg SubCutaneous Every 24 Hours 3. Multivitamin with Minerals: 1 tablet(s) Oral Daily 4. Primidone: 250 mg Oral 2 Times a Day 5. Primidone: 50 mg Oral Daily Before Second Meal 6. Tiotropium 18 micrograms/ Inhalation: 1 inhalation Inhalation Daily PRN Medications ------- 1. Albuterol 90 micrograms/ Inhalation MDI: 2 inhalation Inhalation Every 4 Hours 2. Melatonin: 3 mg Oral At Bedtime Radiology Results: Results: Xray Chest 1 View [Feb 28 2021 4:59PM] Xray Chest 1 View [Feb 28 2021 2:54PM] NM VQ Quantitative [Feb 28 2021 10:27AM] CT Chest without Contrast [Dec 15 2020 4:37PM] Assessment: Pt is a 65y/o M who is admitted post-procedure from a bronchoscopy, with endobronchial valve placement. He is high risk for a pneumothorax, and is admitted to [facility] 3. Thoracic surgery consulted to evaluate and for possible chest tube placement. Recs: -daily CXR -if pt develops a pneumothorax, will place a chest tube -D/W primary team, Dr Ruiz Pt seen and examined; I discussed the pt with Dr Eisenberg Consult Status: Consult Order ID: [id number] Send Provider Communication: Note Recipients: Jeferson Ruiz DO - [id number] [] Attestation: Note Completion: Provider/Team Pager #[phone] Electronic Signatures: Gerber Alas (TERE (PHYSICIAN)) (Signed 28-Feb-2021 19:10) Authored: Service, History of Present Illness, Review Family/Social History and ROS, Allergies, Objective, Assessment/Recommendation s, Provider Communication, Note Completion Last Updated: 28-Feb-2021 19:10 by Gerber Alas (TERE (PHYSICIAN)) Normal [facility] No Panel Informationon 02-28 [email or web address] [id number] [facility] Work Phone: [facility] Work Phone: [phone] Order Reconciliationon 02-28 Order Reconciliation Page 1 Admission Reconciliation Document Reconciliation Type: Admission requested on behalf of Osiel Marie (Resident) done by Osiel Marie (Resident)) Admission - Reconciliation: 28-Feb-2021 18:50 by: Osiel Marie ( (Resident)) Home MedicationsEnteredLast Dose TakenReconciled with current Order Reconciliation Comment/ Additional Information albuterol 90 mcg/inh inhalation aerosol with adapter 2 puff(s) inhaled every 4 hours, As [id number] Albuterol 90 micrograms/ Inhalation MDI (PROVENCANDIS VENTOLIN)DOSE = 2 inhalation Every 4 Hours via MDI, PRN Shortness of BreathNotes from Pharmacy: RCRAalbuterol 90 mcg/inh inhalation aerosol with adapter reconciled with the existing inpatient order Albuterol 90 micrograms/ Inhalation MDI Aspirin Low Dose 81 mg oral tablet, chewable 1 orally once a [id number] Aspirin Chewable Tablet, ChewableDOSE = 81 mg Oral DailyAspirin Low Dose 81 mg oral tablet, chewable reconciled with the existing inpatient order Aspirin Chewable Multiple Vitamins oral tablet 1 tab(s) orally once a [id number] Multivitamin with Minerals TabletDOSE = 1 tablet(s) Oral DailyMultiple Vitamins oral tablet reconciled with the existing inpatient order Multivitamin with Minerals primidone 250 mg oral tablet 1 orally every 12 -[id number]-[id number] Primidone Tablet (MYSOLINE)DOSE = 250 mg Oral 2 Times a Dayprimidone 250 mg oral tablet reconciled with the existing inpatient order Primidone primidone 50 mg oral tablet 1 orally once a day (in the afternoon)28-Feb-2021 Primidone Tablet (MYSOLINE)DOSE = 50 mg Oral Daily Before Second Meal primidone 50 mg oral tablet reconciled with the existing inpatient order Primidone Prolastin-C intravenous solution 1000 milligram(s) / 20mL intravenous weekly on Reviewed and Held Trelegy Ellipta 100 mcg-62.5 mcg-25 mcg/inh inhalation powder 1 puff(s) inhaled once a [id number] Tiotropium 18 micrograms/ Inhalation Capsule (SPIRIVA HANDIHALER)DOSE = 1 inhalation DailyClinician Notes: hospital substitute for home Trelegy ElliptaNotes from Pharmacy: Substitution for Fluticasone 100 mcg - Umeclidinium 62.5 mcg - Vilanterol 25 mcg (TRELEGY ELLIPTA 100 mcg - 62.5 mcg - 25 mcg) 1 inhalation DailyTrelegy Ellipta 100 mcg-62.5 mcg-25 mcg/inh inhalation powder reconciled with the existing inpatient order Tiotropium 18 micrograms/ Inhalation vitamin E 400 intl units oral capsule 1 cap(s) orally once a [id number] Reviewed and Held Additional Current Orders Enoxaparin SubCutaneous (LOVENOX)DOSE = 40 mg SubCutaneous Every 24 Hours Melatonin TabletDOSE = 3 mg Oral At Bedtime, PRN Insomnia Normal [facility] Radiologyon 02-28-2021 XR Chest Single view Normal [facility] Work Phone: [phone] CHEST 1 VIEWon 02-28-2021 TH CHEST 1 VIEW Patient Name: BROCK COLEY STUDY: CHEST 1 VIEW; 02/28/2021 3:44 pm INDICATION: s/p LLL endobronchial valve placement x5. COMPARISON: None. ACCESSION NUMBER(S): [id number] ORDERING CLINICIAN: EMERSON LUIS FINDINGS: CARDIOMEDIASTINAL SILHOUETTE: Cardiomediastinal silhouette is normal in size and configuration. LUNGS: Diffuse prominence of the perihilar interstitium and correlate with mild edema versus overlying soft tissue. Correlate with fluid status. Endobronchial valves overlying the left hilum. Left lobe endobronchial valves. ABDOMEN: No remarkable upper abdominal findings. BONES: No acute osseous changes. IMPRESSION: 1. No pneumothorax. Endobronchial valves overlie the left hilum. Prominence of the peribronchial interstitium and correlate with small airway disease. Electronically signed by: Ollie HAGER MD Normal [facility] V/Q QUANTon 02-28-2021 V/Q QUANT Patient Name: BROCK COLEY STUDY: V/Q QUANT; 02/28/2021 9:55 am INDICATION: Emphysema, respiratory failure. 65-year-old male with emphysema in setting alpha-1 antitrypsin deficiency and positive smoking history; pre-op evaluation. COMPARISON: CT chest dated 12/15/2020 ACCESSION NUMBER(S): [id number] ORDERING CLINICIAN: SALINAS RUIZ TECHNIQUE: DIVISION OF NUCLEAR MEDICINE PERFUSION LUNG SCAN, QUANTITATIVE Multiple perfusion images of the lungs were obtained after the intravenous administration of 4.3 mCi of Tc-99m MAA. Computer quantification of regional lung perfusion was then performed with each lung being sectioned into upper, middle, and lower lung zones. FINDINGS: Perfusion images demonstrate markedly reduced lung perfusion of the left lower lobe and significant heterogeneity of the right lung and left upper lobe. Low-dose CT with interval development of opacities in the dependent portions of the left upper lobe and right lower lobe that are likely secondary to atelectasis. An infectious or inflammatory process cannot be excluded. Bilateral severe panlobular emphysema is also noted. Computer quantification using a geometric mean calculation is as follows; LEFT: UPPER 13 % MIDDLE 20 % LOWER 9 % TOTAL 42 % RIGHT: UPPER 11 % MIDDLE 31 % LOWER 16 % TOTAL 58 % IMPRESSION: 1. Markedly reduced perfusion of the left lower lobe with heterogeneity of the right lung and left upper lobe. 2. Quantitative perfusion as detailed above. 3. Interval development of dependent opacities in the left upper lobe and right lower lobe most consistent with atelectasis, however an inflammatory or infectious process cannot be excluded. I personally reviewed the images/study and I agree with the findings as stated. This study was interpreted at [facility], [place], [place]. 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 Emphysema / Chronic hypoxemic respiratory failure - severe hyperinflation with chronic respiratory failure, completed pulmonary rehab with improvement, testing indicates good candidate for bronchoscopic lung volume reduction with endobronchial valves, discussed procedure including risks / benefits and need for admission following valve placement -CT chest for fissure integrity assessment -> CT done, will discuss further once analysis complete -Continue Trelegy daily -Albuterol as needed -Continue pulmonary rehab exercises 2. Alpha-1 antitrypsin deficiency -Continue Prolastin ADDENDUM: CT fissure integrity analysis shows complete left major fissure with best target in LLL -Start prior authorization process for BLVR Chief Complaint BROCK COLEY is here for an outpatient consultation. Reason for Visit: Emphysema, BLVR evaluation. Appointment requested by: Dr. Ruiz. History of Present IllnessMay 2020 Mr. Coley is a 65 year old male former smoker with emphysema and chronic hypoxemic respiratory failure who presents today for evaluation for BLVR. HPI: Mr. Valles was started on supplemental oxygen in May 2020 and was found to have alpha-1 antitrypsin deficiency and started on Prolastin in June 2020. He completed pulmonary rehab, and noted improvement in his breathing. He presents today for evaluation for BLVR. denies fevers, chills, or nights sweats denies shortness of breath at rest, or significant dyspnea on exertion, mMRC Dyspnea Score = 2-3 denies cough, wheezing, hemoptysis, or stridor denies chest pain, orthopnea, or lower extremity edema denies nausea, vomiting, abdominal pain, odynophagia, dysphagia, heartburn, anorexia, or weight loss denies sinus congestion, post-nasal drip, epistaxis, or hoarseness of voice Inhalers / Nebulized medications / Oxygen: Trelegy Albuterol Oxygen Immunizations: Influenza COVID-19 - 11/16/20 Pneumovax - April 2020 Prevnar Social History: Tobacco: Former smoker - quit 2015, smoked 1-2 ppd prior Imaging history: (I have personally reviewed the imaging below) CT chest 12/15/2020 -> severe emphysema, 2 mm RUL nodule PFTs: 05/18/2020 Spirometry: FVC = 4.04 L (99% predicted) FEV1 = 1.23 L (40% predicted) FEV1/FVC = 30% DLCO: 43% predicted Lung volumes: TLC = 130% predicted, RV = 182% predicted, RV/TLC = 48% 6MWT: 05/18/2020 - RA -> 4L/min SpO2 93% -> 82% (placed on oxygen) HR 92 -> 122 [place] 0.5 -> 2 Actual meters walked 274 m / predicted lower limit 308 m Echo: 12/06/2020 -> EF 55%, normal RV size AND function, mildly dilated RA, normal LA, normal valves, RVSP 17 mmHg Family History: +COPD +Leukemia +gastric cancer Review of Systems Constitutional: as noted in HPI, no chills, not feeling poorly, not feeling tired, no fever and no night sweats. Eyes: no blurred vision, no dryness of the eyes, no eyesight problems and no eye pain. ENT: no earache, no discharge from the ear(s), the ears do not feel full, no hearing loss, no tinnitus, no vertigo, no nasal passage blockage, no nasal congestion, no nasal discharge, no nosebleeds, no postnasal drip, no rhinorrhea, no sinus pressure, no bleeding gums, no hoarseness, no xerostomia, no oral lesions and no sore throat. Neck: no mass(es) and no swelling. Cardiovascular: as noted in HPI, no chest pain, no tachycardia, no bradycardia, no intermittent leg claudication, no lower extremity edema, no orthopnea, no palpitations and no syncope. Respiratory: as noted in HPI. Gastrointestinal: as noted in HPI, no abdominal pain, no bloating, no nausea and no vomiting. Musculoskeletal: no arthralgias, no back pain, no history of falls, no localized joint pain, no joint swelling, no limb pain, no limb swelling, no myalgias and no neck pain. Integumentary: no rashes. Neurological: no confusion, no convulsions, no difficulty walking, no diplopia, no dizziness, no dysarthria, no facial weakness, no headache, no limb weakness, no memory changes, no numbness, no speech difficulties, no syncope and no tingling. Psychiatric: no anxiety and no depression. Endocrine: no changes in appetite, no deepening of the voice, no polyuria, no feelings of weakness, no hair thinning or loss, no heat/cold intolerance, no muscle weakness, no polydipsia and no proptosis. Hematologic/L (more content not included)... Normal [email or web address] Falls Risk Screeningon 12-15 Fall risk assessment a) No falls within the last year [facility] Work Phone: [phone] Falls Risk Screening b) No [facility] Work Phone: [phone] CT CHEST WO CONTRASTon CT CHEST WO CONTRAST Patient Name: BROCK COLEY STUDY: CT CHEST WO CONTRAST; 12/15/2020 2:15 pm INDICATION: SOB, COPD. COMPARISON: None. ACCESSION NUMBER(S): [id number] ORDERING CLINICIAN: SALINAS RUIZ TECHNIQUE: Helical data acquisition of the chest was obtained without IV contrast material. Images were reformatted in axial, coronal, and sagittal planes. FINDINGS: LUNGS AND AIRWAYS: The trachea and central airways are patent. No endobronchial lesion. There is scattered mucous plugging within the distal airways of the bilateral lower lobes, left worse than right. Severe paraseptal and centrilobular emphysematous changes and hyperinflation of bilateral lungs, predominantly the left lower lobe. There are two tiny discrete 2 mm solid pulmonary nodules within the right upper lobe (series 3, image 83 of 331). There is a tiny punctate calcified granuloma and a 3 mm calcified granuloma within the right upper lobe. No focal lung consolidation, pleural effusion, or pneumothorax. MEDIASTINUM AND ASHIA, LOWER NECK AND AXILLA: The visualized thyroid gland is within normal limits. No evidence of thoracic lymphadenopathy by CT criteria. Esophagus appears within normal limits as seen. HEART AND VESSELS: The thoracic aorta is of normal course and caliber with mild vascular calcifications. Main pulmonary artery and its branches are normal in caliber. Mild coronary artery calcifications are seen. The study is not optimized for evaluation of coronary arteries. The cardiac chambers are not enlarged. No evidence of pericardial effusion. UPPER ABDOMEN: Status post cholecystectomy. Otherwise, the visualized subdiaphragmatic structures demonstrate no remarkable findings. CHEST WALL AND OSSEOUS STRUCTURES: Mild levocurvature of the thoracic spine. There are no suspicious osseous lesions. Minimal multilevel degenerative changes are present. IMPRESSION: 1. Severe bilateral emphysematous changes and hyperinflation, predominantly involving the left lower lobe. 2. Nonspecific 2 mm solid pulmonary nodules within the right upper lobe, likely benign. 3. Mild coronary artery calcifications. Please note that, the present study is not tailored for evaluation of coronary arteries and correlate with patient symptomatology and cardiovascular risk factors. I personally reviewed the images/study and I agree with the findings as stated. This study was interpreted at [facility], [place], [place]. Electronically signed by: MANDY JIMENEZ MD Normal [facility] Blood Gas Art, with LytesSarah oracio, [place] 12-06-2020 a/A Ratio Art 60.30 % Normal >=0.80 [facility] Comment on above: Performed By: #### 4 [id number] #### [facility] [address] [place] [address] AaDO2 Art 38.4 mmHg High 5.0-15.0 [facility] Comment on above: Performed By: #### 4 [id number] #### [facility] [address] [place] [address] Allens Test Not Applicable Normal [facility] [place] [facility] Comment on above: Performed By: #### 4 [id number] #### [facility] [address] [place] [address] Base Excess Arterial 1.0 mmol/L Low >=2.8 [facility] Comment on above: Performed By: #### 4 [id number] #### [facility] [address] [place] [address] cCa2+ Art 4.79 mg/dL Normal 4.40-5.30 [facility] Comment on above: Performed By: #### 4 [id number] #### [facility] [address] [place] [address] cCl- Art 106.0 mmol/L Normal 101.0-111.0 [facility] Comment on above: Performed By: #### 4 [id number] #### [facility] [address] [place] [address] cGlu Art 107.0 mg/dL Normal 55.0-199.0 [facility] Comment on above: Performed By: #### 4 [id number] #### [facility] [address] [place] [address] cK+ Art 4.3 mmol/L Normal 3.5-5.3 [facility] Comment on above: Performed By: #### 4 [id number] #### [facility] [address] [place] [address] cLac Art 1.0 mmol/L Low 5.0-14.0 [facility] Comment on above: Performed By: #### 4 [id number] #### [facility] [address] [place] [address] special events fundraiser+ Art 141.0 mmol/L Normal 135.0-145.0 [facility] Comment on above: Performed By: #### 4 [id number] #### [facility] [address] [place] [address] Drawn by dylon Invalid Interpretation Code [facility] Comment on above: Performed By: #### 4 [id number] #### [facility] [address] [place] [id number] FCOHb Art 1.0 % Low 1.5-4.9 [facility] Comment on above: Result Comment: Refe rence range Nonsmoker <1.5% Smoker <5.0% Heavy Smoker <9.0% Performed By: #### 4 [id number] #### [facility] [address] [place] [address] FIO2 BG 21 Invalid Interpretation Code [facility] Comment on above: Performed By: #### 4 [id number] #### [facility] [address] [place] [address] FMetHb Art 0.6 % Normal 0.0-1.9 [facility] Comment on above: Performed By: #### 4 [id number] #### [facility] [address] [place] [address] FO2Hb Art 90.4 % Low 93.0-100.0 [facility] Comment on above: Performed By: #### 4 [id number] #### [facility] [address] [place] [address] HCO3 (Bld) [Moles/Vol] 25.1 mmol/L Normal 22.0-26.0 [facility] Comment on above: Performed By: #### 4 [id number] #### [facility] [address] [place] [address] Hemoglobin (Bld) [Mass/Vol] 14.2 g/dL Normal 12.0-17.0 [facility] Comment on above: Performed By: #### 4 [id number] #### [facility] [address] [place] [address] Oxygen saturation in Blood 91.8 % Low 95.0-100.0 [facility] Comment on above: Performed By: #### 4 [id number] #### [facility] [address] [place] [address] P CO2 Arterial 41.4 mmHg Normal 35.0-45.0 [facility] Comment on above: Performed By: #### 4 [id number] #### [facility] [address] [place] [address] P O2 Arterial 58.4 mmHg Low 80.0-100.0 [facility] Comment on above: Performed By: #### 4 [id number] #### [facility] [address] [place] [address] pH Arterial 7.405 Normal 7.350-7.450 [facility] Comment on above: Performed By: #### 4 [id number] #### [facility] [address] [place] [address] Sample Site R Brachial Normal [facility] Comment on above: Performed By: #### 4 [id number] #### [facility] [address] [place] [address] Sample Type Arterial Draw Normal [facility] Comment on above: Performed By: #### 4 [id number] #### [facility] [address] [place] [address] Physician Orderon 12-06-2020 Physician Order [id number]:12 7 Normal [facility] Vital Signs Date Time Vital Sign Value Performing Clinician Facility 05-04-2021 13:45-0400 Body height 170.1 cm Jeferson Woody Zulama Work Phone: [facility] Work Phone: 05-04-2021 13:45-0400 Body mass index (BMI) [Ratio] 39.23 kg/m2 [employer] Work Phone: [facility] Work Phone: 05-04-2021 13:45-0400 Body surface area Derived from formula 2.22 m2 [employer] Work Phone: [facility] Work Phone: 05-04-2021 13:45-0400 Body temperature 97.7 [degF] Jeferson Woody Zulama Work Phone: [facility] Work Phone: 05-04-2021 13:45-0400 Body weight 113.51 kg [employer] Work Phone: [facility] Work Phone: 05-04-2021 13:45-0400 Diastolic blood pressure 81 mm[Hg] Jeferson Woody Zulama Work Phone: [facility] Work Phone: 05-04-2021 13:45-0400 Heart rate 105 /min Jeferson P Samsa Work Phone: [facility] Work Phone: 05-04-2021 13:45-0400 Respiratory rate 16 /min Jeferson P Samsa Work Phone: VQ-Rclenoe-Farypq n [facility] Work Phone: 05-04-2021 13:45-0400 SaO2% (BldA) [Mass fraction] 95 % Jeferson P Samsa Work Phone: [facility] Work Phone: 05-04-2021 13:45-0400 Systolic blood pressure 153 mm[Hg] Jeferson P Samsa Work Phone: [facility] Work Phone: 05-04-2021 13:45-0400 0 1 Jeferson P Samsa Work Phone: [facility] Work Phone: Comment on above: [employer] 03-15-2021 06:50-0400 Body temperature 97.88 [degF] Jeferson Samsa Other Phone: [facility] 03-15-2021 06:50-0400 Diastolic blood pressure 79 mm[Hg] Jeferson Samsa Other Phone: [facility] 03-15-2021 06:50-0400 Heart rate 98 /min Jeferson Samsa Other Phone: [facility] 03-15-2021 06:50-0400 Respiratory rate 18 /min Jeferson Samsa Other Phone: [facility] 03-15-2021 06:50-0400 SaO2% (BldA) [Mass fraction] 93 % Jeferson Samsa Other Phone: [facility] 03-15-2021 06:50-0400 Systolic blood pressure 151 mm[Hg] Jeferson Samsa Other Phone: [facility] 12-15-2020 14:25-0400 Body height 170.1 cm Jeferson P [employer] Work Phone: [facility] Work Phone: 12-15-2020 14:25-0400 Body mass index (BMI) [Ratio] 38.8 kg/m2 Jeferson P [employer] Work Phone: [facility] Work Phone: 12-15-2020 14:25-0400 Body surface area Derived from formula 2.21 m2 Jeferson P [employer] Work Phone: [facility] Work Phone: 12-15-2020 14:25-0400 Body temperature 97.88 [degF] Jefersonnelda Ruiz Work Phone: [facility] Work Phone: 12-15-2020 14:25-0400 Body weight 112.27 kg Jeferson P [employer] Work Phone: [facility] Work Phone: 12-15-2020 14:25-0400 Diastolic blood pressure 82 mm[Hg] Jeferson P [employer] Work Phone: [facility] Work Phone: 12-15-2020 14:25-0400 Heart rate 96 /min Jeferson P [employer] Work Phone: [facility] Work Phone: 12-15-2020 14:25-0400 Respiratory rate 17 /min Jeferson P [employer] Work Phone: [facility] Work Phone: 12-15-2020 14:25-0400 SaO2% (BldA) [Mass fraction] 97 % Jeferson P Samsa Work Phone: [facility] Work Phone: 12-15-2020 14:25-0400 Systolic blood pressure 133 mm[Hg] Jeferson P Samsa Work Phone: [facility] Work Phone: 12-15-2020 14:25-0400 0 1 Jeferson P Samsa Work Phone: [facility] Work Phone: Comment on above: [employer] 12-15-2020 14:24-0400 Body temperature 97.88 [degF] Jeferson P Samsa Work Phone: [facility] Work Phone: 12-15-2020 14:24-0400 Heart rate 91 /min Jeferson P Samsa Work Phone: [facility] Work Phone: 12-15-2020 14:24-0400 SaO2% (BldA) [Mass fraction] 94 % Jeferson P Samsa Work Phone: [facility] Work Phone: Encounters Encounter Date Encounter Type Care Provider Facility Start: 10-12-2023 End[facility] Start: 12-06-2022 End: 01-03-2023 ambulatory JEFERSON SAMSA . Facility:[facility] Start: 11-08-2022 End: 11-29-2022 ambulatory JEFERSON SAMSA . Facility:[facility] Start: 10-10-2022 End: 10-31-2022 ambulatory JEFERSON SAMSA . Facility:[facility] Start: 10-02-2022 End: 10-03-[address] VIRAJ MALONEY Facility:[facility] Start: 09-12-2022 End: 10-03-2022 ambulatory JEFERSON SAMSA . Facility:[facility] Start: 08-07-2022 End: 09-05-2022 ambulatory JEFERSON SAMSA . Facility:[facility] Start: 07-11-2022 End: 08-01-2022 ambulatory JEFERSON SAMSA . Facility:[facility] Start: 06-06-2022 End: 07-04-2022 ambulatory JEFERSON SAMSA . Facility:[facility] Start: 05-09-2022 End: 05-30-2022 ambulatory JEFERSON SAMSA . Facility:[facility] Start: 05-03-2022 End: 05-04-2022 ambulatory JEFERSON SAMSA . Facility:[facility] Start: 04-11-2022 End: 05-02-2022 ambulatory JEFERSON SAMSA . Facility:[facility] Start: 03-07-2022 End: 04-04-2022 ambulatory JEFERSON SAMSA . Facility:[facility] Start: 02-07-2022 End: 02-28-2022 ambulatory JEFERSON SAMSA . Facility:[facility] Start: 05-04-2021 FUV, Provider: Salinas Ruiz, Status: Pen, Time: 1:40 PM Jeferson P Samsa Work Phone: [facility] Work Phone: Start: 05-04-2021 Office outpatient vi sit 25 minutes Jeferson P Samsa Work Phone: [facility] Work Phone: Start: 05-04-2021 Patient encounter procedure Jeferson P Samsa Work Phone: [facility] Work Phone: Start: 05-04-2021 PST, Provider: RALPH HARVEY FLR PFT [facility]ALKWAY,PULM, Status: Pen, Time: 10:45 AM Jeferson P Samsa Work Phone: [facility] Work Phone: Start: 05-04-2021 Patient encounter procedure Jeferson P Samsa Work Phone: [facility] [place] [facility] Work Phone: Start: 05-04-2021 PFT, Provider: RALPH JENKINS 6TH FLR PFT RM1,PULM, Status: Pen, Time: 8:45 AM Jeferson Mckay Zulama Work Phone: [facility] Work Phone: Start: 05-03-2021 AUDIT Jeferson Mckay Zulama Work Phone: [facility] Work Phone: Start: 03-11-2021 End: 03-15-2021 Evaluation and management of inpatient Daryl Kearns [facility] Afia 3 MS 318 A Start: 03-04-2021 AUDIT Jeferson Mckay Zulama Work Phone: [facility] Work Phone: Start: 02-09-2021 AUDIT Jeferson Mckay Zulama Work Phone: [facility] Work Phone: Start: 12-15-2020 Office consultation new/estab patient 80 min Jeferson Mckay Zulama Work Phone: [facility] Work Phone: Patient encounter status Jeferson Mckay Zulama Work Phone: [facility] Work Phone: Procedures Date Procedure Procedure Detail Performing Clinician Start: 12-15-2020 Follow-up visit Plan of Treatment Date Care Activity Detail Author Start: 03-18-2021 Patient encounter procedure [facility] Preadmit Start: 03-15-2021 End: 03-16-2022 Alpha 1-Proteinase Inhibitor (HUMAN) IV Piggy Back GLASSIA ; in IV (Total Volume) 50 mL (GLASSIA)DOSE = 1,000 mg Every 7 DaysRecommended Infusion Time: 15 minute(s)Clinician Notes: Weekly on last dose was 03/08, next dose 03/15Notes from Pharmacy: Administer at room temperature Start: 15-Mar-2021 End: 15-Mar-2022 Ordered: 11-Mar-2021 Max Champion Intent Comments: Weekly on last dose was 8, next dose 03/15 [facility] Comment on above: Weekly on l ast dose was 8/3, next dose 8/ Start: 03-11-2021 End: 03-12-2022 Albuterol 2.5 mg/ 3 mL Nebulizer Soln ; (PROVENTIL)DOSE = 3 mL Inhalation Every 4 Hours via Nebulizer, PRN Shortness of BreathClinician Notes: home regimen Start: 11-Mar-2021 End: 11-Mar-2022 Ordered: 11-Mar-2021 Max Champion Intent Comments: home regimen [facility] Comment on above: home regimen Immunizations Immunization Date Immunization Notes Care Provider Fa kiannaty 11-16-2020 Pfizer-BioNTech COVI D-19 Vacc 30 MCG/0.3ML Intramuscular Suspension [employer] Work Phone: [facility] Work Phone: 10-25-2020 Pfizer-BioNTech COVI D-19 Vacc 30 MCG/0.3ML Intramuscular Suspension [employer] Work Phone: [facility] [employer] Work Phone: 04-07-2020 pneumococcal conjuga te vaccine, 13 valent [employer] Work Phone: [facility] [employer] Work Phone: Payers Date Payer Category Payer Unknown 1960 Medicare [id number] 1960 Private Health Insurance [facility] [id number] 1954 Unknown [id number] 2.16.84 [id number] 1954 Unknown [id number] 2.16.84 [id number] 1954 Unknown [id number] 2.16.84 [id number] 1954 Unknown [id number] 2.16.84 [id number] 1954 Unknown [id number] 2.16.84 [id number] 1954 Unknown [id number] 2.16.84 [id number] 1954 Unknown [id number] 2.16.84 [id number] 1954 Unknown [id number] 2.16.84 0.1.776752.3.579.2.593 1954 Unknown [id number] 2.16.84 [id number] 1954 Unknown [id number] 2.16.84 0.1.002874.3.579.2.593 1954 Unknown [id number] 2.16.84 0.1.248061.3.579.2.593 1954 Unknown [id number] 2.16.84 [id number] 1954 Unknown [id number] 2.16.84 [id number] Social History Date Type Detail Facility Former smoker Former smoker [facility] Work Phone: Tobacco smoking consumption unknown [facility] Functional Status Date Assessment Result Facility Functional observable [facility] Mental Status Date Assessment Result Facility 03-11-2021 Cognitive functions 11-Mar-20 2120:20 [facility] Clinical Notes 12-15-2020 to 10-15-2023 <item><item><item><item> Note Date & Type Note Facility 10-15-2023 Note Event monitor report received for noted Tachycardia/a flutter this past Sunday at 9:30 pm with heart rate 150. Provider attempted to call pt and left a voicemail regarding how he felt during that time and to increase metoprolol to 50 mg po bid if b/p has remained > 130/80 at home. Staff also called pt later this morning and were able to speak to pt. He denied any symptoms during that episode, and states b/p have been 140's/70-80 and he understood to increase Metoprolol to 50 mg po bid for better heart rate control Tatiana Danica [facility] Cardiology Available 7a-5pm via [employer] Chat Pager [phone] [facility] 10-12-2023 Note Hypertension is unco ntrolled in office 146/84 and was also elevated in ED visit- 155/69 [facility] 10-12-2023 Note [id number]- HTN and age No contra indications for anticoagulation noted. Will start eliquis 5 mg bid and d/w pt to monitor for any bleeding tendencies. Start metoprolol 25 mg po bid for rate control Reviewed recent labs- electrolytes and TSH were normal. Will order echocardiogram and event monitor to assess cardiac rhythm and cardiac function/valvular function Pt does have smart watch that has notified him of tachycardia both times it occured D/W pt that he may need EPS/ablation for a flutter RTC after testing with Dr Rao- EP evaluation and further management [facility] 10-12-2023 Note New patient here to establish care. He is following up from [facility] ED for tachycardia s/p infusion. He sees Dr. Ruiz for pulmonary. He was also seen in [facility] ED in February 2023 for tachycardia as well. Denies chest pain, palpitations, and lightheadedness/syncope. Review of Systems Cardiovascular: Positive for dyspnea on exertion. Respiratory: Positive for shortness of breath. All other systems reviewed and are negative. [facility] 10-12-2023 Note [facility] CARDIOLOGY PROGR ESS NOTE HPI: Brock Coley is a 68 y.o. male here as new pt for tachycardia New patient here to establish care. He is following up from [facility] ED for tachycardia s/p infusion- prolastin every Sun since 06/2020. Heart rates were 130-150 bpm and IVF was given and fast heart rate resolved. He sees Dr. Ruiz for pulmonary. He was also seen in [facility] ED in February 2023 for tachycardia as well. Denies chest pain, palpitations, and lightheadedness/syncope. States he has fast heart February 07, 2023 and was evaluated in ED and was given metoprolol IV and resolved. New patient here to establish care. He is following up from [facility] ED for tachycardia s/p infusion. He sees Dr. Ruiz for pulmonary. He was also seen in [facility] ED in February 2023 for tachycardia as well. Denies chest pain, palpitations, and lightheadedness/syncope. Review of Systems Cardiovascular: Positive for dyspnea on exertion. Respiratory: Positive for shortness of breath. All other systems reviewed and are negative. [facility] ED report 10/03/23 Pt was admitted for arrhythmia/palpitations. He was noted to have elevated heart rate at the infusion center and was sent to ED for evalutation. He receives IV infusions for alpha 1 antitrypsin def. Heart rate was noted in the 130's- denied chest pain, SOB, dizziness. Heart rate responded well to lopressor. PMH: COPD, Emphysema, skin cancer, Tachycardia, alpha 1 antitrysin deficiency PSH: cholecystectomy, tonsilectomy FMH: Mother- COPD, Father- leukemia Social: Former smoker- 40 years- 1 ppd, Quit 10 years ago, denied alcohol or illicit drug use. Visit Vitals BP 146/84 (BP Location: Right arm, Patient Position: Sitting) Pulse 71 Ht 1.702 m (5' 7 ) Wt 105 kg (231 lb) SpO2 97% BMI 36.18 kg/m??? Smoking Status Former BSA 2.23 m??? No Known Allergies Medications: Current Outpatient Medications on File Prior to Visit Medication Sig Dispense Refill albuterol 90 mcg/actuation inhaler INHALE 2 PUFFS BY MOUTH EVERY 4 HOURS NEEDED SHORTNESS OF BREATH Inhalation for 50 Days alpha1-proteinase inhibitor (Prolastin-C) infusion as directed Intravenous aspirin 81 mg EC tablet Take 81 mg by mouth in the morning. scpkvmereor-tppdabuwi-rjewrwic (Trelegy Ellipta) 100-62.5-25 mcg blister with device Inhalation for 30 Days primidone (Mysoline) 250 mg tablet every 12 (twelve) hours. primidone (Mysoline) 50 mg tablet 1 (one) time each day at the same time. topiramate (Topamax) 25 mg tablet Take 25 mg by mouth in the morning and at bedtime. vitamin E, dl,tocopheryl acet, (vitamin E, dl, acetate,) 180 mg (400 unit) capsule Take 400 Units by mouth in the morning. No current facility-administered medications on file prior to visit. Physical Exam: Constitutional: Appearance: Normal appearance. Without apparent distress, chronically ill HENT: Head: Normocephalic and atraumatic. Nose: Nose normal. Mouth/Throat: Mouth: Mucous membranes are moist. Eyes: Extraocular Movements: Extraocular movements intact. Conjunctiva/sclera: Conjunctivae normal. Neck: Vascular: No JVD. Cardiovascular: Rate and Rhythm: Normal rate and regular rhythm. Pulses: Dorsalis pedis pulses are 3 on the right side and 3on the left side. Posterior tibial pulses are 3 on the right side and 3 on the left side. Heart sounds: Normal heart sounds, S1 normal and S2 normal. Pulmonary: Effort: Pulmonary effort is normal. Breath sounds: Normal breath sounds. Abdominal: General: Bowel sounds are normal. Palpations: Abdomen is soft. Musculoskeletal: General: Normal range of motion. Cervical back: Normal range of motion. Right lower leg: No edema. Left lower leg: No edema. Skin: General: Skin is warm and dry. Capillary Refill: Capillary refill takes less than 2 seconds. Neurological: General: No focal deficit present. Mental Status: he is alert and oriented to person, place, and time. Psychiatric: Mood and Affect: Mood normal. Behavior: Behavior normal. Thought Content: Thought content normal. Judgment: Judgment normal. Labs: 10/03/23 CBC stable, renal, liver and thyroid function normal Last lab values have been reviewed CV Testing: ECG's reviewed with Dr Suarez and EKG 10/03/23 is atrial flutter 2:1 No echocardiogram results found for the past 12 months Assessment/Plan: Tachy-wilder syndrome (CMS/HCC) Event monitor Paroxysmal atrial flutter (CMS/HCC) [id number]- HTN and age No contra indications for anticoagulation noted. Will start eliquis 5 mg bid and d/w pt to monitor for any bleeding tendencies. Start metoprolol 25 mg po bid for rate control Reviewed recent labs- electrolytes and TSH were normal. Will order echocardiogram and event monitor to assess cardiac rhythm and cardiac function/valvular function Pt does have smart watch that has notified him of tachycardia both times it occured D/W pt that he may need EPS/ablation for a flutter RTC after testin (more content not included)... [facility] 10-12-2023 Note Event monitor [facility] 05-04-2021 History of Present illness Narrative May 04, 2021MrNoel COLEY is a 66 year old male non-smoker who presents today for follow-up accompanied by his wifeconcerns and questions regarding the booster shot for COVID-19 vaccineHas f/u with Dr Castillo states he has been feeling generally welldenies fevers, chills, or nights sweatsdenies shortness of breath at rest, or significant dyspnea on exertion,mMRC Dyspnea Score =denies cough, wheezing, hemoptysis, or stridordenies chest pain, orthopnea, or lower extremity edemadenies nausea, vomiting, abdominal pain, odynophagia, dysphagia, heartburn, anorexia, or weight lossdenies sinus congestion, post-nasal drip, epistaxis, or hoarseness of voiceSince the last visit there have been no changes to the past medical history, past surgical history, social history, or family history.Inhalers / Nebulized medications / Oxygen: NoneImmunizations:InfluenzaPneumov axPrevnarSocial History:Tobacco: * smokerOccupation:(Full questionnaire on exposures obtained, discussed with the patient and scanned to EMR)No known exposure to asbestos, silica or berylliumNo known exposure to TB, PPD / QuantiFERON-TB Gold negative [date]Imaging history: (I have personally reviewed the imaging below)[] -> []PFTs: None on recordDate ->6MWT: None on recordDate ->Echo: None on recordFamily History:No family history of lung diseases or cancer [facility] Work Phone: 05-04-2021 History of Present illness Narrative May 04, 2021MrNoel COLEY is a 66 year old male former smoker with emphysema and chronic hypoxemic respiratory failure who presents today for follow-up after BLVR.Mr. Valles underwent BLVR with valve placement in the LLL. He was admitted approximately 1 week later with pneumonia. After treatment, he has been doing much better.Concerns and questions regarding the booster shot for COVID-19 vaccineHas f/u with Dr Castillo states he has been feeling generally well - reports that he has been able to increase his activity level. He still has VANESSA, but less so.denies fevers, chills, or nights sweats+DOEdenies shortness of breath at restmMRC Dyspnea Score = 1+cough with occasional sputum production+occasional wheezingdenies hemoptysis, or stridordenies chest pain, orthopnea, or lower extremity edemadenies nausea, vomiting, abdominal pain, odynophagia, dysphagia, heartburn, anorexia, or weight lossdenies sinus congestion, post-nasal drip, epistaxis, or hoarseness of voiceSince the last visit there have been no changes to the past medical history, past surgical history, social history, or family history.Inhalers / Nebulized medications / Oxygen:TrelegyAlbuterolOxygenImmun izations:InfluenzaCOVID-19 - 11/16/20Pneumovax - April 2020PrevnarSocial History:Tobacco: Former smoker - quit 2015, smoked 1-2 ppd priorImaging history: (I have personally reviewed the imaging below)CT chest 12/15/2020 -> severe emphysema, 2 mm RUL noduleCT chest 05/04/2021 -> severe emphysema, decreased volume in left lungPFTs: 05/18/2020Spirometry:FVC = 4.04 L (99% predicted)FEV1 = 1.23 L (40% predicted)FEV1/FVC = 30%DLCO: 43% predictedLung volumes: TLC = 130% predicted, RV = 182% predicted, RV/TLC = 48%05/04/2021pirometry:FVC = 4.27 L (109% predicted)FEV1 = 1.72 L (57% predicted)FEV1/FVC = 40% (predicted lower limit = 64%)DLCO: 55% predictedLung volumes: TLC = 121% predicted, RV = 156% predicted, RV/TLC = 45%6MWT: 05/18/2020 - RA -> 4L/minSpO2 93% -> 82% (placed on oxygen)HR 92 -> 122Borg 0.5 -> 2Actual meters walked 274 m / predicted lower limit 308 05/04/2021 - 4 L/minSpO2 96% -> 89%HR 82 -> 116Borg 0 -> 3Actual meters walked 320 m / predicted lower limit 314 Marielle:12/06/2020 -> EF 55%, normal RV size & function, mildly dilated RA, normal LA, normal valves, RVSP17 mmHgFamily History:+COPD+Leukemia+gastric cancer [facility] Work Phone: 05-04-2021 History of Present illness Narrative May 04, 2021Mr. COLEY is a 66 year old male former smoker with emphysema and chronic hypoxemic respiratory failure who presents today for follow-up after BLVR.Mr. Valles underwent BLVR with valve placement in the LLL. He was admitted approximately 1 week later with pneumonia. After treatment, he has been doing much better.Concerns and questions regarding the booster shot for COVID-19 vaccineHas f/u with Dr Castillo states he has been feeling generally well - reports that he has been able to increase his activity level. He still has VANESSA, but less so.denies fevers, chills, or nights sweats+DOEdenies shortness of breath at restmMRC Dyspnea Score = 1+cough with occasional sputum production+occasional wheezingdenies hemoptysis, or stridordenies chest pain, orthopnea, or lower extremity edemadenies nausea, vomiting, abdominal pain, odynophagia, dysphagia, heartburn, anorexia, or weight lossdenies sinus congestion, post-nasal drip, epistaxis, or hoarseness of voiceSince the last visit there have been no changes to the past medical history, past surgical history, social history, or family history.Inhalers / Nebulized medications / Oxygen:TrelegyAlbuterolOxygenImmun izations:InfluenzaCOVID-19 - 11/16/20Pneumovax - April 2020PrevnarSocial History:Tobacco: Former smoker - quit 2015, smoked 1-2 ppd priorImaging history: (I have personally reviewed the imaging below)CT chest 12/15/2020 -> severe emphysema, 2 mm RUL noduleCT chest 05/04/2021 -> severe emphysema, decreased volume in left lungPost-LBVR StratX analysis suggests possible leak around valve, but total lung volume decreased by 1.1 L (15.2%)PFTs: 05/18/2020Spirometry:FVC = 4.04 L (99% predicted)FEV1 = 1.23 L (40% predicted)FEV1/FVC = 30%DLCO: 43% predictedLung volumes: TLC = 130% predicted, RV = 182% predicted, RV/TLC = 48%05/04/2021pirometry:FVC = 4.27 L (109% predicted)FEV1 = 1.72 L (57% predicted)FEV1/FVC = 40% (predicted lower limit = 64%)DLCO: 55% predictedLung volumes: TLC = 121% predicted, RV = 156% predicted, RV/TLC = 45%6MWT: 05/18/2020 - RA -> 4L/minSpO2 93% -> 82% (placed on oxygen)HR 92 -> 122Borg 0.5 -> 2Actual meters walked 274 m / predicted lower limit 308 05/04/2021 - 4 L/minSpO2 96% -> 89%HR 82 -> 116Borg 0 -> 3Actual meters walked 320 m / predicted lower limit 314 Marielle:12/06/2020 -> EF 55%, normal RV size & function, mildly dilated RA, normal LA, normal valves, RVSP17 mmHgFamily History:+COPD+Leukemia+gastric cancer [facility] Work Phone: 03-15-2021 Note Send Summary: Discharge Summary Providers: Provider RoleProvider Name Salinas Rodgers Aaron PrimarySamsa, Nathan P Note Recipients: Daryl Kearns MD Samsa, Nathan P, - [phone] [] Miriam Marks MD Young, Benjamin, MD Discharge: Summary: Admission Date: .11-Mar-2021 14:26:00 Discharge Date: 15-Mar-2021 Attending Physician at Discharge: Daryl Kearns Admission Reason: Pneumonia Final Discharge Diagnoses: Pneumonia Procedures: none Condition at Discharge: Satisfactory Disposition at Discharge: .Home Vital Signs: T PRBPSpO2 [id number]/7993% Date/Time03/15 4:508/10 4:508/10 4:508/10 4:508/10 4:50 Range(36.6C - 37C ) (92 - 98 ) (18 - 18 ) (122 - 151 )/ (74 - 79 ) (93% - 95% ) As of 15-Mar-2021 08:19:00, patient is on 4 L/min of oxygen via nasal cannula. Highest temp of 37 C was recorded at 03/14 22:14 Date: Weight/Scale Type:Height: 11-Mar-2021 17:73166.3 kg / zca314.1 cm Hospital Course: Mr. 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 He was started on Vanc/Zosyn. Vanc was stopped after MRSA nares was -ve and zosyn was kept. Urine strep. pneumo and legionella were negative. sputum culture grew normal oral melanie. Daily CXR were done to rule out pneumothorax as the patient recently had a LLL EBV. Patient was transitioned to Augmentin on the day of discharge for a total of antibiotics of 14 days. Discharge Information: and Continuing Care: Lab Results - Pending: None Radiology Results - Pending: None Discharge Instructions: Respiratory: Oxygen: Administer oxygen at 4 via Infectious Disease: PPD Status: not given MRSA: no VRE: no C. Diff: no Other Resistant Organism: no Isolation Type: none Follow Up Appointments: Follow-Up Appointment 01: Physician/Dept/Service: Dr. Viraj Maloney Primary Care Physician Scheduled Date/Time: 06-Apr-2021 09:00 Location: [address] [place] [address] Follow-Up Appointment 02: Physician/Dept/Service: Local Electrical Design Technologist Reason for Referral: COPD Call to Schedule in: 1 week Location: [facility] Discharge Medications: Home Medication Prolastin-C intravenous solution - 1000 milligram(s) / 20mL intravenous weekly on Tuesdays primidone 250 mg oral tablet - 1 orally every 12 hours primidone 50 mg oral tablet - 1 orally once a day (in the afternoon) Aspirin Low Dose 81 mg oral tablet, chewable - 1 orally once a day Multiple Vitamins oral tablet - 1 tab(s) orally once a day vitamin E 400 intl units oral capsule - 1 cap(s) orally once a day Trelegy Ellipta 100 mcg-62.5 mcg-25 mcg/inh inhalation powder - 1 puff(s) inhaled once a day amoxicillin-clavulanate 875 mg-125 mg oral tablet - 1 tab(s) orally every 12 hours -.Meds to Beds PRN Medication albuterol 90 mcg/inh inhalation aerosol with adapter - 2 puff(s) inhaled every 4 hours, As Needed Issues to Discuss at Follow-up / Goals for Continuing Care: Follow up: [ ] Medications: -Inquire about antibiotic adherence (Augmentin started on 03/15 and a 10 day course should be completed through 03/24) -Resume home medications (including Trelegy Ellipta) -Inquire about home oxygen use and saturation [ ] Follow ups: -Inquire about Prolastin-C infusions (patient was not given Prolastin during hospital stay, but needs to get them weekly) -Patient will follow up with PCP and local fulling mill operator to document resolution of pneumonia with CXR in 4 weeks from discharge (03/15) -Inquire if patient has been experiencing new or worsening symptoms (e.g. fever, chills, worsened dyspnea) Attestation: Note Completion: I am a: Resident/Fellow Attending AttestationI saw and evaluated the patient. I personally obtained the marx and critical portions of the history and physical exam or was physically present for marx and critical portions performed by the resident/fellow. I reviewed the resident/fellows documentation and discussed the patient with the resident/fellow. I agree with the resident/fellows medical decision making as documented in the note. I personally evaluated the patient [id number] Comments/ Additional Findings Greater than 30 minutes was spent planning and arranging for discharge Electronic Signatures: Franki Palacios (Resident)) (Signed 15-Mar-2021 17:30) Authored: Send Summary, Note Completion Daryl Kearns) (Signed 29-Mar-2021 12:40) Authored: Ongoing Care, Note Completion Co-Signer: Send Summary (more content not included)... [facility] 03-15-2021 Hospital Discharge instructions Oxygen:Administer oxygen at 4 via to maintain SpO2 % of.Follow Up Appointment 1:Physician/Dept/Service: Dr. Viraj Maloney Primary Care PhysicianScheduled Date/Time: 06-Apr-2021 09:00Location: [address] [place], [place] [address]Phone Number: [phone]: Please arrive 10-15 minutes early, bring photo ID, insurance cards, discharge summary, and a list of current medications. Please call the office if you need to change this appointment.Follow Up Appointment 2:Physician/Dept/Service: Local PulmonologistReason for Referral: COPDLocation: Erika TOMLIN [facility] 03-11-2021 Note History of Present I llness: HPI: Mr. 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 Patient reports that after he was discharged he began to experience daily fevers in the evenings associated with chills. He states that he contacted Dr. Ruiz on 03/04 to inform about fevers and was prescribed a 7 day course of Levaquin 500mg. Patient reports that he completed this course but is still experiencing fevers as well as new increased oxygen requirement (normally uses 4L O2 on exertion now requiring 4L at rest). He states that his fevers would range between 100.8-101.5. He endorses feeling chills and cough, now with blood-tinged sputum. Patient reports that he has also had worsening shortness of breath, now getting winded when walking between rooms. PMH: as above PSH: cholecystectomy 2009 Allergies: NKDA FHX: COPD, leukemia, gastric cancer Soc: 1ppd smoker, quit 2016, denies etoh, denies drugs Social History: Social History: Smoking Statusformer smoker Alcohol Usedenies Drug Usedenies Allergies: No Known Allergies: Medications Prior to Admission: albuterol 90 mcg/inh inhalation aerosol with adapter: 2 puff(s) inhaled every 4 hours, As Needed Prolastin-C intravenous solution: 1000 milligram(s) / 20mL intravenous weekly on Tuesdays primidone 250 mg oral tablet: 1 orally every 12 hours primidone 50 mg oral tablet: 1 orally once a day (in the afternoon) Aspirin Low Dose 81 mg oral tablet, chewable: 1 orally once a day Multiple Vitamins oral tablet: 1 tab(s) orally once a day vitamin E 400 intl units oral capsule: 1 cap(s) orally once a day Trelegy Ellipta 100 mcg-62.5 mcg-25 mcg/inh inhalation powder: 1 puff(s) inhaled once a day. Review of Systems: Constitutional: POSITIVE: Fever, Chills, Malaise Eyes: NEGATIVE: Blurry Vision, Diploplia, Vision Loss/ Change ENMT: NEGATIVE: Ear Pain, Mouth Pain, Throat Pain Respiratory: POSITIVE: Productive Cough, Hemoptysis, Shortness of Breath Cardiac: POSITIVE: Dyspnea on Exertion; NEGATIVE: Chest Pain, Palpitations Gastrointestinal: NEGATIVE: Nausea, Vomiting, Abdominal Pain Genitourinary: NEGATIVE: Dysuria, Hematuria Neurological: NEGATIVE: Dizziness, Headache Skin: NEGATIVE: Rash Endocrine: NEGATIVE: Sweat, Polyuria, Thirst Hematologic/Lymph: NEGATIVE: Bruising, Easy Bleeding Objective: Objective Information: T PRBPSpO2 [id number]% Date/Time03/11 15: 15: 15:128 15:128 15:12 Range(36.3C - 36.3C ) (87 - 87 ) (18 - 18 ) (135 - 135 )/ (74 - 74 ) (94% - 94% ) Pain reported at 03/11 15:11: 0 = None Physical Exam by System: Constitutional: Well developed, no acute distress, alert and cooperative Eyes: PERRL, EOMI, clear sclera ENMT: mucous membranes moist, no apparent injury, no lesions seen, wearing nasal canula Head/Neck: Neck supple, no apparent injury, no JVD Respiratory/Thorax: on nasal canula, good chest expansion, diffuse crackles worse in left lung Cardiovascular: Regular, rate and rhythm, no murmurs, 2+ equal pulses of the extremities, normal S 1and S 2 Gastrointestinal: Nondistended, soft, non-tender, no rebound tenderness or guarding, no masses palpable, no organomegaly, +BS Musculoskeletal: ROM intact, no joint swelling, normal strength Extremities: normal extremities, no edema Neurological: alert and oriented x3, intact senses, motor, response and reflexes, normal strength; significant baseline tremor in upper extremities Psychological: Appropriate mood and behavior Skin: Warm and dry, no lesions, no rashes Medications: Medications: Continuous Medications No continuous medications are active Scheduled Medications 1. Aspirin Chewable: 81 mg Oral Daily 2. Enoxaparin SubCutaneous: 40 mg SubCutaneous Every 24 Hours 3. Fluticasone 250 microgram -Salmeterol 50 microgram/ Inh: 1 inhalation Inhalation Every 12 Hours 4. Piperacillin - Tazobactam 4.5 gram/Iso-osmotic 100 mL Premix IVPB: 100 mL IntraVenous Piggyback Every 6 Hours 5. Primidone: 250 mg Oral 2 Times a Day 6. Primidone: 50 mg Oral Daily 1800 7. Tiotropium 18 micrograms/ Inhalation: 1 inhalation Inhalation Every 24 Hours 8. Vancomycin - RPh to Dose - IV Piggy Back: 1 each As Specified Variable 9. Vancomycin IV Piggy Back: 1750 mg IntraVenous Piggyback Every 12 Hours 10. Vitamin B Complex with C: 1 each Oral Daily PRN Medications 1. Albuterol 2.5 mg/ 3 mL Nebulizer Soln: 3 mL Inhalation Every 4 Hours Recent Lab Results: Results: (more content not included)... [facility] 03-03-2021 Note Send Summary: Discharge Summary Providers: Provider RoleProvider Name ReferringJeferson Ruiz ConsultingPulmonary Consult Brandon Dominique Nurse PractitionerGurinder Guy Nathan P AttendingGifford, Alex Note Recipients: Jeferson Ruiz, DO - [id number] [] Brandon Eisenberg MD Young, Benjamin, MD Discharge: Summary: Admission Date: .28-Feb-2021 17:00:00 Discharge Date: 03-Mar-2021 Attending Physician at Discharge: Thang Lorenzo Admission Reason: endobronchial valve placement(1) Final Discharge Diagnoses: endobronchial valve placement Procedures: Bronchoscopy Condition at Discharge: Satisfactory Disposition at Discharge: .Home Vital Signs: T PRBPSpO2 [id number]% Date/Time03/03 5: 5: 5: 5: 5:00 Range(36.1C - 37.5C ) (76 - 95 ) (16 - 18 ) (124 - 142 )/ (77 - 84 ) (93% - 96% ) As of 03-Mar-2021 05:00:00, patient is on 4 L/min of oxygen via nasal cannula. Highest temp of 37.5 C was recorded at 03/02 21:43 Date: Weight/Scale Type:Height: 03-Mar-2021 05:39037 kg / standing Physical Exam: Constitutional: Well appearing WM sitting up in bed in NAD Eyes: PERRL, EOMI, anicteric ENMT: MMM, on 4 L NC Head/Neck: no JVD, supple Respiratory/Thorax: faint basilar crackles in LLL, on 4L NC Cardiovascular: RRR, no m/r/g, 2+pp Gastrointestinal: +BS, soft, ND, NTTP Musculoskeletal: normal muscle bulk, no swollen joints Extremities: no edema or cyanosis Neurological: A&Ox4, normal strength & sensation Psychological: Appropriate mood and behavior Skin: warm and dry Hospital Course: Mr. 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 Currently HDS on his baseline O2 requirement of 4L NC. Admitted for observation to ensure no pneumothorax post-procedure. On admission, the patient was doing well with no evidence of pneumothorax. The patient was monitored for 3 days with no evidence of pneumothorax during that time. The patient was discharged home on 03/03/2021. Discharge Information: and Continuing Care: Lab Results - Pending: None Radiology Results - Pending: Xray Single Plane Tomograms at 03-Mar-2021 10:05:00 Discharge Instructions: f/u with Dr. Onesimo Ruiz Follow Up Appointments: Follow-Up Appointment 01: Physician/Dept/Service: Dr. Ruiz (Pulmonology) Reason for Referral: hospital f/u visit Discharge Medications: Home Medication Prolastin-C intravenous solution - 1000 milligram(s) / 20mL intravenous weekly on Tuesdays primidone 250 mg oral tablet - 1 orally every 12 hours primidone 50 mg oral tablet - 1 orally once a day (in the afternoon) Aspirin Low Dose 81 mg oral tablet, chewable - 1 orally once a day Multiple Vitamins oral tablet - 1 tab(s) orally once a day vitamin E 400 intl units oral capsule - 1 cap(s) orally once a day Trelegy Ellipta 100 mcg-62.5 mcg-25 mcg/inh inhalation powder - 1 puff(s) inhaled once a day PRN Medication albuterol 90 mcg/inh inhalation aerosol with adapter - 2 puff(s) inhaled every 4 hours, As Needed Attestation: Note Completion: I am a: Resident/Fellow Attending AttestationI saw and evaluated the patient. I personally obtained the marx and critical portions of the history and physical exam or was physically present for marx and critical portions performed by the resident/fellow. I reviewed the resident/fellows documentation and discussed the patient with the resident/fellow. I agree with the resident/fellows medical decision making as documented in the note. I personally evaluated the patient [id number] Comments/ Additional Findings Uneventful course following placement of bronchial valves for lung volume reduction. Serial radiographs did not show any evidence of barotrauma and showed appropriate volume loss in left lower lobe. Electronic Signatures: Thang Lorenzo) (Signed 03-Mar-2021 17:02) Authored: Note Completion Co-Signer: Summary Content, Ongoing Care, Note Completion Amber Arroyo (Resident)) (Signed 03-Mar-2021 12:22) Authored: Send Summary, Summary Content, Ongoing Care, Note Completion Last Updated: 03-Mar-2021 17:02 by Thang Lorenzo) References: 1. 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 Procedure was tolerated well without complications of pneumothorax noted on post procedural CXR. Patient on baseline 4L NC and denying symptoms of dyspnea, wheezing, chest pain. Reports that he feels a little bit better post procedure. Denies pain or discomfort. Endorses normal appetite. MEDICAL HX: A1AT deficiency COPD/Emphysema Chronic hypoxemic respiratory failure Familial Tremors IMAGING STUDIES: CT chest 12/15/2020 -> severe emphysema & hyperinflation greatest in LLL; 2 mm RUL nodule PFTs: 05/18/2020 Spirometry: FVC = 4.04 L (99% predicted) FEV1 = 1.23 L (40% predicted) FEV1/FVC = 30% DLCO: 43% predicted Lung volumes: TLC = 130% predicted, RV = 182% predicted, RV/TLC = 48% 6MWT: 05/18/2020 - RA -> 4L/min SpO2 93% -> 82% (placed on oxygen) HR 92 -> 122 [place] 0.5 -> 2 Actual meters walked 274 m / predicted lower limit 308 m Echo: 12/06/2020 -> EF 55%, normal RV size & function, mildly dilated RA, normal LA, normal valves, RVSP ~17 mmHg SURGICAL HX: Cholecystectomy 2010 at [facility] FAMILY HX: Multiple members- COPD, leukemia, gastric cancer SOCIAL HX: Former 1 to 2 ppd tobacco smoker, quit 2015. Denies alcohol or illicit drug use. Comorbidities: Comorbidites: Comorbid Conditionschronic obstructive pulmonary disease COPDwith emphysema, with oxygen dependence Chronic Respiratory Failureyes Oxygen Delivery at Homenasal cannula Oxygen Amount (L/min)4 Oxygen Frequencycontinuous Allergies: No Known Allergies: Medications Prior to Admission: albuterol 90 mcg/inh inhalation aerosol with adapter: 2 puff(s) inhaled every 4 hours, As Needed Prolastin-C intravenous solution: 1000 milligram(s) / 20mL intravenous weekly on Tuesdays primidone 250 mg oral tablet: 1 orally every 12 hours primidone 50 mg oral tablet: 1 orally once a day (in the afternoon) Aspirin Low Dose 81 mg oral tablet, chewable: 1 orally once a day Multiple Vitamins oral tablet: 1 tab(s) orally once a day vitamin E 400 intl units oral capsule: 1 cap(s) orally once a day Trelegy Ellipta 100 mcg-62.5 mcg-25 mcg/inh inhalation powder: 1 puff(s) inhaled once a day. Review of Systems: Constitutional: NEGATIVE: Fever, Chills Eyes: NEGATIVE: Blurry Vision, Drainage Respiratory: NEGATIVE: Wheezing, Shortness of Breath Cardiac: NEGATIVE: Chest Pain, Dyspnea on Exertion Gastrointestinal: NEGATIVE: Nausea, Vomiting Genitourinary: NEGATIVE: Dysuria, Hematuria Musculoskeletal: NEGATIVE: Swelling, Stiffness Neurological: NEGATIVE: Dizziness, Headache Psychiatric: NEGATIVE: Mood Changes, Sleep Changes Skin: NEGATIVE: Mass, Pain Objective: Objective Information: T PRBPSpO2 [id number]/7698% Date/Time02/28 18: 18: 18: 18: 18: Range(35.7C - 36.2C ) (63 - 73 ) (18 - 18 ) (132 - 135 )/ (69 - 76 ) (97% - 98% ) As of 28-Feb-2021 18:26:00, patient is on 4 L/min of oxygen via nasal cannula. Physical Exam by System: Constitutional: Well appearing WM sitting up in bed in NAD Eyes: PERRL, EOMI, anicteric ENMT: MMM Head/Neck: no JVD, supple Respiratory/Thorax: CTAB, normal effort, on 4L NC Cardiovascular: RRR, no m/r/g, 2+pp Gastrointestinal: +BS, soft, ND, NTTP Musculoskeletal: normal muscle bulk, no swollen joints Extremities: no edema or cyanosis Neurological: A&Ox4, normal strength & sensation Psychological: Appropriate mood and behavior Skin: warm and dry Medications: Medications: Continuous Medications No continuous medications are active Scheduled Medications 1. Aspirin Chewable: 81 mg Oral Daily 2. Enoxaparin SubCutaneous: 40 mg SubCutaneous Every 24 Hours 3. Multivitamin with Minerals: 1 tablet(s) Oral Daily 4. Primidone: 250 mg Oral 2 Times a Day 5. Primidone: 50 mg Oral Daily Before Second Meal 6. Tiotropium 18 micrograms/ Inhalation: 1 inhalation Inhalation Daily PRN Medications 1. Albuterol 90 micrograms/ Inhalation MDI: 2 inhalation Inhalation Every 4 Hours 2. Melatonin: 3 mg Oral At Bedtime Radiology Results: Results: Impression: 1. No pneumothorax. Endobronchial valves overlie the left hilum. Prominence of the peribronchial interstitium and correlate with small airway disease. 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 He is currently HDS on h (more content not included)... [facility] 12-15-2020 History of Present illness Narrative December 15, 2020Mr. Coley is a 65 year old male former smoker with emphysema and chronic hypoxemic respiratory failure who presents today for evaluation for BLVR.HPI: Mr. Valles was started on supplemental oxygen in May 2020 and was found to have alpha-1 antitrypsin deficiency and started on Prolastin in June 2020. He completed pulmonary rehab, and noted improvement in his breathing. He presents today for evaluation for BLVR.denies fevers, chills, or nights sweatsdenies shortness of breath at rest, or significant dyspnea on exertion,mMRC Dyspnea Score = 2-3denies cough, wheezing, hemoptysis, or stridordenies chest pain, orthopnea, or lower extremity edemadenies nausea, vomiting, abdominal pain, odynophagia, dysphagia, heartburn, anorexia, or weight lossdenies sinus congestion, post-nasal drip, epistaxis, or hoarseness of voiceInhalers / Nebulized medications / Oxygen:TrelegyAlbuterolOxygenImmun izations:InfluenzaCOVID- - 11/16/20Pneumovax - April 2020PrevnarSocial History:Tobacco: Former smoker - quit 2015, smoked 1-2 ppd priorImaging history: (I have personally reviewed the imaging below)CT chest 12/15/2020 -> severe emphysema, 2 mm RUL nodulePFTs: 05/18/2020Spirometry:FVC = 4.04 L (99% predicted)FEV1 = 1.23 L (40% predicted)FEV1/FVC = 30%DLCO: 43% predictedLung volumes: TLC = 130% predicted, RV = 182% predicted, RV/TLC = 48%6MWT: 05/18/2020 - RA -> 4L/minSpO2 93% -> 82% (placed on oxygen)HR 92 -> 122[place] 0.5 -> 2Actual meters walked 274 m / predicted lower limit 308 Marielle:12/06/2020 -> EF 55%, normal RV size & function, mildly dilated RA, normal LA, normal valves, RVSP17 mmHgFamily History:+COPD+Leukemia+gastric cancer [employer] Phone: Chief complaint Narrative - Reported BROCK COLEY is here for an outpatient consultation.Reason for Visit: Emphysema, BLVR evaluation.Appointment requested by: Dr. Ruiz. [employer] Phone: Evaluation note Skin: Warm and dry, no lesions, no rashesEyes: EOMI, clear scleraENMT: mucous membranes moist, no apparent injury, no lesions seenHead/Neck: Neck supple, no apparent injuryRespiratory/Thorax: Patent airways, CTAGastrointestinal: Nondistended, soft, non-tenderMusculoskeletal: ROM intact, no joint swelling, normal strengthExtremities: normal extremities, no edema, contusions or wounds, no clubbingNeurological: alert and oriented x3, intact senses, motorPsychological: Appropriate mood and behaviorCardiovascular: Regular, rate and rhythm, no murmursConstitutional: Well developed, awake/alert/oriented x3, no distress, alert and cooperative [facility] Summary Purpose Family History No Family History Records FoundUnknown Family Member Name Dates Details Family history of chronic ob structive pulmonary disease: Mother(V17.6, Z82.5) Status:Active Family history of leukemia: Father(V16.6, Z80.6) Status:Active Family history of malignant neoplasm of stomach: Paternal Uncle(V16.0, Z80.0) Status:Active Unknown Family Member Name Dates Details Family history of chronic ob structive pulmonary disease: Mother(V17.6, Z82.5) Status:Active Family history of leukemia: Father(V16.6, Z80.6) Status:Active Family history of malignant neoplasm of stomach: Paternal Uncle(V16.0, Z80.0) Status:Active Unknown Family Member Name Dates Details Family history of chronic ob structive pulmonary disease: Mother(V17.6, Z82.5) Status:Active Family history of leukemia: Father(V16.6, Z80.6) Status:Active Family history of malignant neoplasm of stomach: Paternal Uncle(V16.0, Z80.0) Status:Active Unknown Family Member Name Dates Details Family history of chronic ob structive pulmonary disease: Mother(V17.6, Z82.5) Status:Active Family history of leukemia: Father(V16.6, Z80.6) Status:Active Family history of malignant neoplasm of stomach: Paternal Uncle(V16.0, Z80.0) Status:Active Unknown Family Member Name Dates Details Family history of chronic ob structive pulmonary disease: Mother(V17.6, Z82.5) Status:Active Family history of leukemia: Father(V16.6, Z80.6) Status:Active Family history of malignant neoplasm of stomach: Paternal Uncle(V16.0, Z80.0) Status:Active Unknown Family Member Name Dates Details Family history of chronic ob structive pulmonary disease: Mother(V17.6, Z82.5) Status:Active Family history of leukemia: Father(V16.6, Z80.6) Status:Active Family history of malignant neoplasm of stomach: Paternal Uncle(V16.0, Z80.0) Status:Active Unknown Family Member Name Dates Details Family history of chronic ob structive pulmonary disease: Mother(V17.6, Z82.5) Status:Active Family history of leukemia: Father(V16.6, Z80.6) Status:Active Family history of malignant neoplasm of stomach: Paternal Uncle(V16.0, Z80.0) Status:Active Unknown Family Member Name Dates Details Family history of chronic ob structive pulmonary disease: Mother(V17.6, Z82.5) Status:Active Family history of leukemia: Father(V16.6, Z80.6) Status:Active Family history of malignant neoplasm of stomach: Paternal Uncle(V16.0, Z80.0) Status:Active Advance Directives No Advanced Directives Records FoundNo Advanced Directives Records FoundNo Advanced Directives Records FoundNo Advanced Directives Records FoundNo Advanced Directives Records Found Chief Complaint * BROCK COLEY is here for a follow-up visit. * Reason for Visit: Emphysema, s/p BLVR. * BROCK COLEY is here for a follow-up visit. * Reason for Visit: Emphysema, s/p BLVR. * BROCK COLEY is here for a follow-up visit. * Reason for Visit: Emphysema, s/p BLVR. Additional Source Comments (unrecognized sect ion and content) No Status Records FoundNo Status Records FoundNo Status Records FoundNo Status Records FoundNo Status Records Found INFORMATION SOURCE (unrecogn ized section and content) DATE CREATED AUTHOR 12/07/2020 [facility] DATE CREATED AUTHOR AUTHOR'S ORGANIZ ATION 05/20/2021 [email or web address] DATE CREATED AUTHOR AUTHOR'S ORGANIZ ATION 11/04/2021 [facility] DATE CREATED AUTHOR AUTHOR'S ORGANIZ ATION [facility]/12/2023 [facility] DATE CREATED AUTHOR AUTHOR'S ORGANIZ ATION 10/15/2023 [facility] <item> Privacy Markings (unrecogniz ed section and content) Section Author: Char Mcdonald PROHIBITION ON REDISCLOSURE OF CONFIDENTIAL INFORMATION This notice accompanies a disclosure of information concerning a client made to you with the consent of such client. FOR RECORDS PERTAINING TO PATIENTS WHO ARE OR HAVE BEEN ENROLLED IN A CHEMICAL DEPENDENCY/SUBSTANCEABUSE PROGRAM, SOME INFORMATION MAY BE OMITTED. This clinical summary was aggregated from multiple sources. Caution should be exercised in using it in the provision of clinical care. This summary normalizes information from multiple sources, and as a consequence, information in this document may materially change the coding, format and clinical context of patient data. In addition, data may be omitted in some cases. CLINICAL DECISIONS SHOULD BE BASED ON THE PRIMARY CLINICAL RECORDS. [facility] [employer] [facility]. provides no warranty or guarantee of the accuracy or completeness of information in this document.
--- NOTE | 2023-10-25 10:57 | CA_ITS ---
Patient Name: STACEY COLEY MR#: [id number] : 1955 Exam Date: 10/25/2023 Ordering Doctor: KAILEE VACA ECHOCARDIOGRAM REPORT PROCEDURE: CA ECHO DOPPLER COMPLETE INDICATIONS: SVT, AFlutter, VANESSA COMPARISON: None. DESCRIPTION: COMPLETE ECHOCARDIOGRAM Real-time transthoracic echocardiography with 2D, M-mode, spectral and color flow Doppler performed. QUALITY: Technical quality was good. LEFT VENTRICLE: Normal chamber size. Thickened septal wall. LV EF: Global left ventricular systolic function is normal. Calculated left ventricular ejection fraction is 63%. No significant wall motion abnormalities. DIASTOLIC: Normal diastolic function. ATRIAL SEPTUM: Inadequately seen. LEFT ATRIUM: Mild dilatation. RIGHT ATRIUM: Moderate dilatation. RIGHT VENTRICLE: Normal chamber size. Normal right ventricular systolic function. TRICUSPID VALVE: Normal mobility and thickness. No stenosis with trivial regurgitation. No evidence of pulmonary hypertension. RVSP 22mmHg MITRAL VALVE: Normal mobility and thickness. No evidence of mitral valve stenosis. There is no mitral annular calcification. Trivial mitral regurgitation. AORTIC VALVE: Normal trileaflet appearance. Mildly calcified aortic valve. Mildly diminished mobility. No significant aortic stenosis. No aortic regurgitation. AORTIC ROOT: Normal diameter and appearance. PULMONIC VALVE: Normal thickness and mobility. No stenosis. Trivial regurgitation. PERICARDIUM: No evidence of pericardial effusion. IVC: Collapses with inspirations. Normal size. CONCLUSION: 1. Global left ventricular systolic function is normal; visually estimated ejection fraction 60 to 65% 2. Normal right ventricular size and systolic function 3. Normal diastolic function 4. Biatrial enlargement 5. No significant valvular abnormalities Adult Echocardiography Procedure Report Left Ventricle LVEDD (3.7 - 5.6 cm): 4.77 cm LVESD (2.2 - 4.0 cm): 3.02 cm LVIVS thickness (0.6 - 1.2 cm): 1.36 cm LVPW thickness (0.5 - 1.0 cm): 1.15 cm e': 0.11 m/s E - e': 7.68 LVOT Max Gradient: 4.19 mm[Hg] LVOT Area (cm2): 1.02 m/s Peak Velocity (LVOT): 1.02 m/s Mean Velocity (LVOT): 0.66 m/s LVOT Diameter 2.01 cm Left Ventricular Ejection Fraction: 63.18 % Left Atrium LA Volume Index (2D A2C): 40.15 ml/m2 Left Atrium Systolic Dimension: 4.07 cm Mitral Valve MV E to A Ratio: 1.35 Mitral Valve A-Wave Peak Velocity: 0.62 m/s Mitral Valve E-Wave Peak Velocity: 0.83 m/s Right Ventricle RV Internal Diastolic Dimension: 3.83 cm Aorta AO Root Diam: 3.39 cm Ascending Ao Diam: 3.32 cm Aortic Valve AoV Area (Peak Justin): 1.64 cm2, 1.64 cm2 AoV Area (VTI): 1.77 cm2, 1.77 cm2 Peak Velocity(Antegrade Flow): 1.97 m/s Peak Gradient(Antegrade Flow): 15.50 mm[Hg] Mean Velocity(Antegrade Flow): 1.21 m/s Mean Gradient(Antegrade Flow): 6.93 mm[Hg] Velocity Time Integral: 41.93 cm Tricuspid Valve Peak Velocity (Regurgitant Flow): 2.18 m/s, 2.06 m/s, 2.17 m/s Pulmonic Valve Mean Gradient: 2.29 mm[Hg], 2.66 mm[Hg] Mean Velocity: 0.68 m/s, 0.78 m/s Peak Velocity: 1.05 m/s Peak Gradient: 4.44 mm[Hg], 4.39 mm[Hg] Right Atrium Right Atrium Systolic Pressure: 85.94 ml, 85.94 ml Dictated by: Talia Perdomo M.D. on 10/25/2023 at 14:31 Approved by: Talia Perdomo M.D. on 10/25/2023 at 14:35
== END 2023-10-25 09:51 | disposition home or self-care (01) ==
LOC: CARD 09:51
PROVIDERS: PCP Nurse Practitioner Family; Visit Provider Nurse Practitioner
DX: I47.10 Supraventricular tachycardia, unspecified (principal); I48.92 Unspecified atrial flutter; R06.09 Other forms of dyspnea
CPT/HCPCS: 93306

== ENCOUNTER 2023-10-31 07:33 | Outpatient (RCR) | payer MEDICARE, SELFPAY ==
[2023-10-10] MEDS: PROTEINASE INHIBITOR IV (12:59)
[2023-10-10] MEDS: ALPHA IV (12:59)
[2023-10-17 13:09] VITALS: BP 125/59; PULSE 58; RESP 20; TEMP 36.8; O2SAT 94
[2023-10-17] MEDS: PROTEINASE INHIBITOR IV (13:19)
[2023-10-17] MEDS: ALPHA IV (13:19)
[2023-10-24 12:50] VITALS: BP 121/62; PULSE 55; RESP 18; TEMP 36.8; O2SAT 99
[2023-10-24] MEDS: ALPHA IV (13:04)
[2023-10-24] MEDS: PROTEINASE INHIBITOR IV (13:04)
--- NOTE | 2023-10-24 13:47 | PC.NURSE ---
Patient is here for prolastin, he denies any issues or complaints today. He has a 24g in her right wrist with good blood return. He tolerated prolastin well and denies any complaints. He was discharged home ambulatory.
[2023-10-31] MEDS: PROTEINASE INHIBITOR IV (13:03)
[2023-10-31] MEDS: ALPHA IV (13:03)
[2023-10-31 13:12] VITALS: BP 113/64; PULSE 64; RESP 20; TEMP 36.8; O2SAT 97
--- NOTE | 2023-10-31 13:17 | PC.NURSE ---
1300: Pt. to [facility] amb. with portable O2 intact. Pt. called in earlier with current weight. Seated in recliner. VSS. O2 to wall unit at 3L n/c. #24 gauge IV initiated to right hand on first attempt. Flushes easily with good blood return. Pt. tolerated without c/o. 1312: IV Prolastin initiated at this time.
--- NOTE | 2023-10-31 13:38 | PC.NURSE ---
1335: IV Prolastin completed at this time. Pt. without s&s of adverse reaction. IV d/c'd, pressure to site. 1336: D/c'd amb to home with O2 intact.
== END 2023-11-04 23:59 | disposition home or self-care (01) ==
LOC: INF 07:33
PROVIDERS: Visit Provider Internal Medicine
DX: Z51.81 Encounter for therapeutic drug level monitoring (principal); E88.01 Alpha-1-antitrypsin deficiency; J43.2 Centrilobular emphysema
CPT/HCPCS: 36415; 80076; 96365; J0256

== ENCOUNTER 2023-11-28 07:31 | Outpatient (RCR) | payer MEDICARE, SELFPAY ==
[2023-11-07] MEDS: PROTEINASE INHIBITOR IV (13:11)
[2023-11-07] MEDS: ALPHA IV (13:11)
[2023-11-07 13:16] VITALS: BP 117/74; PULSE 69; TEMP 36.7; O2SAT 95
--- NOTE | 2023-11-07 13:22 | PC.NURSE ---
1255: Pt. to [facility] amb. with portable O2 in place. Seated in recliner. VSS. Pt. called in weight before arrival. #24 gauge IV initiated to right hand on first attempt. Flushes easily with no edema. Pt. tolerated without c/o. 1311: IV Prolastin initiated at this time.
--- NOTE | 2023-11-07 13:42 | PC.NURSE ---
1339: Prolastin infused without adverse reaction. IV d/c'd pressure to site. 1340: Pt. d/c'd amb. to home.
[2023-11-14 13:06] VITALS: BP 130/76; PULSE 63; TEMP 36.6; O2SAT 96
--- NOTE | 2023-11-14 13:08 | PC.NURSE ---
1300: Pt. to [facility] amb. with portable O2 intact. Seated in recliner. O2 to wall unit at 3L n/c. VSS. #24 gauge iv initiated to right hand on second attempt. Flushes easily. Pt. tolerated wtihout c/o.
[2023-11-14] MEDS: PROTEINASE INHIBITOR IV (13:15)
[2023-11-14] MEDS: ALPHA IV (13:15)
--- NOTE | 2023-11-14 13:15 | PC.NURSE ---
1315: IV Prolastin initiated at this time. Pt. without needs or c/o.
--- NOTE | 2023-11-14 13:42 | PC.NURSE ---
1340: IV Prolastin completed at this time. Pt. without c/o. IV d/c'd, pressure to site. 1346: Pt. d/c'd amb. to home.
[2023-11-21 13:12] VITALS: BP 137/74; PULSE 59; TEMP 36.6
--- NOTE | 2023-11-21 13:23 | PC.NURSE ---
1300 Arrival ambulatory to chair 3. Alert oriented, weight called to pharmacy. Oxygen switched to wall oxygen at 3 lpm. IV initiated 2ith #24 catheter on 1 attempt rt wrist. tolerated well.
[2023-11-21] MEDS: ALPHA IV (13:43)
[2023-11-21] MEDS: PROTEINASE INHIBITOR IV (13:43)
--- NOTE | 2023-11-21 14:27 | PC.NURSE ---
1415 infusion complete, iv dc'd catheter intact, site clear, cottonball and coban applied. released ambulatory
[2023-11-28] MEDS: ALPHA IV (13:16)
[2023-11-28] MEDS: PROTEINASE INHIBITOR IV (13:16)
[2023-11-28 13:26] VITALS: BP 149/85; PULSE 66; TEMP 36.6; O2SAT 94
--- NOTE | 2023-11-28 13:31 | PC.NURSE ---
1300 Arrival ambulatory to chair 3. alert oriented, oxygen at 4 lpm nc, placed on wall oxygen. 1310 #24 iv initiated rt wrist/forearm area on 1 attempt, tolerated well. 1320 iv prolastin C initiated.
== END 2023-12-04 23:59 | disposition home or self-care (01) ==
LOC: INF 07:31
PROVIDERS: PCP Nurse Practitioner Family; Visit Provider Internal Medicine
DX: E88.01 Alpha-1-antitrypsin deficiency (principal); J43.2 Centrilobular emphysema
CPT/HCPCS: 96360; 96365; J0256

== ENCOUNTER 2023-12-04 10:02 | Outpatient (OUT) | payer MEDICARE, SELFPAY ==
--- NOTE | 2023-12-04 10:04 | CT_ITS ---
The [address] [address] Patient Name: STACEY COLEY MRN: [id number] date: 1955 Sex: M Assigned Patient Location: CT Current Patient Location: [place] Accession/Order Number: [id number] Exam Date: 12/04/2023 10:17 Report Date: 12/04/2023 13:44 At the request of: JEFERSON GLOVER Procedure: CT chest wo con EXAMINATION: CT chest wo con HISTORY: Nonspecific Abnormal Findings On Lung Field R91.8 COMPARISON: 05/22/2023 TECHNIQUE: Multi-planar CT images were created with IV contrast. Axial, Coronal, and Sagittal images. Dose reduction techniques were achieved by using automated exposure control and/or adjustment of mA and/or kV according to patient size and/or use of iterative reconstruction technique. FINDINGS: LUNGS: Moderate to severe diffuse bilateral centrilobular and paraseptal emphysema with an upper lobe predominance. There is been interval partial aeration of the right lower lobe consolidation with persistent endobronchial valves with plugging and patchy and linear opacities in the lower lobe. Additional mild scattered infiltrates are noted, grossly stable. PLEURA: No mass, effusion, or pneumothorax. VASCULATURE: No abnormality. ASHIA: No mass or adenopathy. MEDIASTINUM: No mass or adenopathy. CARDIAC: No enlargement or pericardial effusion. Mild coronary atherosclerosis. Aortic atherosclerosis AORTA: No aortic aneurysm. Moderate calcific atherosclerosis CHEST WALL: No mass or axillary adenopathy. BONES: No bone lesion or fracture. LIMITED ABDOMEN: No suspicious findings. Limited images of the upper abdomen. OTHER: Negative. CT/CT chest wo con IMPRESSION: Persistent left lower lobe endobronchial valves with soft tissue filling possibly representing mucus plugging Minimal interval improvement of left basilar infiltrate. Continued surveillance is recommended with repeat CT exam in 6 months Moderate centrilobular and paraseptal emphysema Electronically authenticated by: CARMENZA SAMUEL Date: 12/04/2023 13:44
--- OUTSIDE RECORDS SUMMARY | 2023-12-04 10:13 | XMS_ITS | CCD ---
Author Organization [facility] Care Team Providers Care Research Methods Instructor Name Role Phone Samsa, Jeferson P Unavailable [...] Unavailable AMARA, DR RUDOLPH Primary Care Unavailable HOUSE, DR [...] Admitting Unavailable SAMSA ., JEFERSON Attending Unavailable MAMESA ., JEFERSON Consulting Unavailable HOUSE, DR RUDOLPH Primary Care Unavailable SAMSA ., JEFERSON Admitting Unavailable TATIANA VACA Attending Unavailable AN HOOPER Attending Unavailable Medications Current Medications Medication Drug Class(es) Dates Sig (Normalized) Sig (Original) amoxicillin 875 mg / clavulanate 125 mg oral tablet (1 source) Penicillin-class Antibacterial Start: 03-14-2021 End: 03-24-2021 take 1 tablet by mouth every twelve hours amoxicillin-clavul anate 875 mg-125 mg oral tablet ; 1 tab(s) orally every 12 hours -.Meds to Beds Quantity: 22 Refills: 0 Ordered: 14-Mar-2021 SarabjitSa deviud Start: 14-Mar-2021 End: 24-Mar-2021 Generic Substitution Allowed Multivitamin preparation (1 source) take 1 tablet by mouth once daily Multiple Vitamins oral tablet ; 1 tab(s) orally once a day Quantity: 0 Refills: 0 Ordered: 28-Feb-2021 Frank, Adaku Generic Substitution Allowed Completed/Discontinued Medications Medication Drug Class(es) Dates Sig (Normalized) Sig (Original) [id number] 60 actuat albuterol 0.09 mg/actuat metered dose [...] nutritional; endocrine; and metabolic disorders (9 sources) Vlddh-7-oxuiucpbqdl deficiency; Translations: [Ukmyg-0-qevqhazrvmw deficiency] Onset: 12-06-2022 Chronic Other nutritional; endocrine; and metabolic disorders (4 sources) Imviu-8-odhuckdzwtm deficiency; Translations: [TLNVD-0-PJKCZEZVOZS DEFICIENCY] Onset: 05-06-2022 Chronic Pneumonia (except that [...] on above: DIAGNOSTIC EBUS Unclassified (1 source) Other supraventricular tachycardia; Translations: [Other supraventricular tachycardia] Onset: 11-20-2023 Unclassified (1 source) Supraventricular tachycardia, unspecified; Translations: [Supraventricular tachycardia, unspecified] Onset: 10-12-2023 Past or Other Problems Problem Classification Problem Date Documented Date Episodic/Chronic Screening and history of mental health and substance abuse codes (4 sources) Personal history of nicotine dependence; Translations: [PERSONAL HISTORY OF NICOTINE DEPEND] Onset: 05-03-2022 Episodic Unclassified (1 source) Other supraventricular tachycardia; Translations: [Other supraventricular tachycardia] Onset: 11-20-2023 Unclassified (1 source) Supraventricular tachycardia, unspecified; Translations: [Supraventricular tachycardia, unspecified] Onset: 10-12-2023 Results Test Name Value Interpretation Reference Range Facility Orders Onlyon 11-21-2023 Orders Only [id number] Christina Coley 1955 M Date Provider Department Center 11/21/2023 AMEYA BANDA Family History Problem Relation Age of Onset No Known Problems Mother No Known Problems Father Family Status - Relation Status Age at Mother Father Normal [facility] Office Visiton 11-20-2023 Follow-up visit [id number] Christina Coley 1955 M Date Provider Department Center 11/20/2023 AN ZAMORANO Family History Problem Relation Age of Onset No Known Problems Mother No Known Problems Father Family Status - Relation Status Age at Mother Father Level of Service:[address] [place] OFFICE/OUTPATIENT NEW MODERATE MDM 45 MINUTES Normal [facility] Orders Onlyon 11-20-2023 Orders Only [id number] Christina Coley 1955 [facility] Provider Department Center 11/20/2023 TENISHA PIHLIPPE DANI Sanabria Family History Problem Relation Age of Onset No Known Problems Mother No Known Problems Father Family Status - Relation Status Age at Mother Father Normal [facility] 36on 10-15-2023 36 Per Melissa Santiago- I called him and got a event monitor report of heart rate in 150's- was trying to ask if he felt it Sunday at 9:30 pm- and to increase metoprolol to 50 mg bid if B/P is ok. Per Tenisha Carreon- he felt nothing and bp 140/68 hr 50-60s. She spoke to patient's and he will make the increase. Normal [facility] Documentationon 10-15-2023 Documentation [id number] Christina Coley 1955 [facility] Provider Department Center 10/15/2023 TATIANA EPSTEIN DANI [facility]. Family History Problem Relation Age of Onset No Known Problems Mother No Known Problems Father Family Status - Relation Status Age at Mother Father Normal [facility] Office Visiton 10-12-2023 Follow-up visit [id number] Christina Coley 1955 [facility] Provider Department Center 10/12/2023 TATIANA EPSTEIN DANI [facility] Family History Problem Relation Age of Onset No Known Problems Mother No Known Problems Father Family Status - Relation Status Age at Mother Father Level of Service:[address] [place] OFFICE/OUTPATIENT NEW MODERATE MDM 45 MINUTES Normal [facility] PRIMIDONE / MYSOLINEon 10-03 Phenobarbital, Serum 5 ug/mL Critically low 15-40 [facility] Comment on above: Result Comment: Dete ction Limit = 3 Performed By: #### P RIMYODIT #### Laboratory [address] [address] [address] Lara Horne Primidone, Serum 11.1 ug/mL Normal 5.0-12.0 [facility] Comment on above: Result Comment: Dete ction Limit = 0.3 <0.3 indicates None Detected Performed By: #### P RIMIDO #### Laboratory [address] [place] [address] Dr. Lara Horne LIVER PROFILEon 10-02-2022 Albumin [Mass/Vol] 4.2 g/dL Normal 3.4-5.0 [facility] Comment on above: Performed By: #### L IVER #### Laboratory [address] [place] [address] Dr. Lara Horne Albumin/Globulin [Mass ratio] 1.2 {ratio} Normal [facility] Comment on above: Performed By: #### L IVER #### Laboratory [address] [place] [address] Dr. Lara Horne ALP [Catalytic activity/Vol] 131 U/L Critically high 46-116 [facility] Comment on above: Performed By: #### L IVER #### Laboratory [address] [place] [address] Dr. Lara Horne ALT [Catalytic activity/Vol] 55 U/L Normal 16-63 [facility] Comment on above: Performed By: #### L IVER #### Laboratory [address] [place] [address] Dr. Lara Horne AST [Catalytic activity/Vol] 25 U/L Normal 15-37 [facility] Comment on above: Performed By: #### L IVER #### Laboratory [address] [place] [address] Dr. Lara Horne BILI, CONJUGATED 0.1 mg/dL Normal 0.0-0.2 [facility] Comment on above: Performed By: #### L IVER #### Laboratory [address] [place] [address] Dr. Lara Horne Bilirubin [Mass/Vol] 0.3 mg/dL Normal 0.2-1.0 [facility] Comment on above: Performed By: #### L IVER #### Laboratory [address] [place] [address] Dr. Lara Horne Globulin (S) [Mass/Vol] 3.5 g/dL Normal [facility] Comment on above: Performed By: #### L IVER #### Laboratory [address] [place], [place] [address] Dr. Lara Horne Protein [Mass/Vol] 7.7 g/dL Normal 6.4-8.2 [facility] Comment on above: Performed By: #### L IVER #### Laboratory [address] [place], [place] 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 COMPARISON: CT dated 03/11/2021 ACCESSION NUMBER(S): [id number] ORDERING CLINICIAN: SALINAS RUIZ TECHNIQUE: Helical data [...] reactive. Electronically signed by: CAMERON SALMERON MD [facility] Daily Progress Note-Medicine on 03-15-2021 Daily Progress Note-Medicine Service: Medicine Subjective Data: BROCK COLEY is a 66 year old Male who is Hospital Day # 5. Overnight Events: Patient had an uneventful night. Additional Information: feels well Objective Data: Objective Information: T PRBPSpO2 [id number]/7993% Date/Time03/15 4: 4: 4: 4: 4:50 Range(36.6C - 37C ) (92 - [...] Updated: 15-Mar-2021 15:49 by Daryl Kearns) Normal [facility] BASIC METABOLIC PANELon 08-0 Anion gap [Moles/Vol] 16 mmol/L Normal 10 - 20 [facility] Comment on above: Performed By: #### B MP ####[id number] [place] [address] Calcium [Mass/Vol] 9.0 mg/dL Normal 8.6 - 10.6 [facility] Comment on above: Performed By: #### B MP ####[id number] [place] [address] Chloride [Moles/Vol] 99 mmol/L Normal 98 - 107 [facility] Comment on above: Performed By: #### B MP ####[id number] [place] [address] Creatinine [Mass/Vol] 0.83 mg/dL Normal 0.50 - 1.30 [facility] Comment on above: Performed By: #### B MP ####[id number] [place] [address] GFR- AM. >60 Normal >60 [facility] Comment on above: Result Comment: CALC ULATIONS OF ESTIMATED GFR ARE PERFORMED USING THE MDRD STUDY EQUATION FOR THE IDMS-TRACEABLE CREATININE METHODS. CLIN CHEM 2007;53:766-72 Performed By: #### B MP ####[id number] [place] [address] GFR-NON AM. >60 Normal >60 [facility] Comment on above: Performed By: #### B MP ####[id number] [place] [address] Glucose [Mass/Vol] 151 mg/dL High 74 - 99 [facility] Comment on above: Performed By: #### B MP ####[id number] [place] [address] HCO3 (Bld) [Moles/Vol] 25 mmol/L Normal 21 - 32 [facility] Comment on above: Performed By: #### B MP ####[id number] [place] [address] Potassium [Moles/Vol] 4.6 mmol/L Normal 3.5 - 5.3 [facility] Comment on above: Performed By: #### B MP ####[id number] [place] [address] Sodium [Moles/Vol] 135 mmol/L Low 136 - 145 [facility] Comment on above: Performed By: #### B MP ####[id number] [place] [address] Urea nitrogen [Mass/Vol] 13 mg/dL Normal 6 - 23 [facility] Comment on above: Performed By: #### B MP ####[id number] [place] [address] C-REACTIVE PROTEINon 021 C-REACTIVE PROTEIN 10.63 mg/dL Abnormal [facility] Comment on above: Result Comment: REF VALUE < 1.00 Performed By: #### C BCDF #### [facility] [id number] [place] [address] CBC AND DIFFERENTIALon 03-14 % AUTOMATED IMMATURE GRAN 0.5 % Normal 0.0 - 0.9 [facility] Comment on above: Result Comment: Suellen ture Granulocyte Count (IG) includes promyelocytes, myelocytes and metamyelocytes but does not include bands. Percent differential counts (%) should be interpreted in the context of the absolute cell counts (cells/L). Performed By: #### C BCDF #### [facility] [address] [place] [address] Basophils (Bld) [#/Vol] 0.05 10*3/uL Normal 0.00 - 0.10 [facility] Comment on above: Performed By: #### C BCDF #### [facility] [address] [place] [address] Basophils/100 WBC (Bld) 0.5 % Normal 0.0 - 2.0 [facility] Comment on above: Performed By: #### C BCDF #### [facility] [address] [place] [address] Eosinophils (Bld) [#/Vol] 0.19 10*3/uL Normal 0.00 - 0.70 [facility] Comment on above: Performed By: #### C BCDF #### [facility] [address] [place] [address] Eosinophils/100 WBC (Bld) 1.9 % Normal 0.0 - 6.0 [facility] Comment on above: Performed By: #### C BCDF #### [facility] [address] [place] [address] Erythrocyte distribution width (RBC) [Ratio] 12.0 % Normal 11.5 - 14.5 [facility] Comment on above: Performed By: #### C BCDF #### [facility] [address] [place] [address] Hematocrit (Bld) [Volume fraction] 36.0 % Low 41.0 - 52.0 [facility] Comment on above: Performed By: #### C BCDF #### [facility] [address] [place] [address] Hemoglobin (Bld) [Mass/Vol] 12.3 g/dL Low 13.5 - 17.5 [facility] Comment on above: Performed By: #### C BCDF #### [facility] [address] [place] [address] Lymphocytes (Bld) [#/Vol] 2.29 10*3/uL Normal 1.20 - 4.80 [facility] Comment on above: Performed By: #### C BCDF #### [facility] [address] [place] [address] Lymphocytes/100 WBC (Bld) 22.7 % Normal 13.0 - 44.0 [facility] Comment on above: Performed By: #### C BCDF #### [facility] [address] [place] [address] MCHC (RBC) [Mass/Vol] 34.2 g/dL Normal 32.0 - 36.0 [facility] Comment on above: Performed By: #### C BCDF #### [facility] [address] [place] [address] MCV (RBC) [Entitic vol] 95 fL Normal 80 - 100 [facility] Comment on above: Performed By: #### C BCDF #### [facility] [address] [place] [address] Monocytes (Bld) [#/Vol] 0.74 10*3/uL Normal 0.10 - 1.00 [facility] Comment on above: Performed By: #### C BCDF #### [facility] [address] [place] [address] Monocytes/100 WBC (Bld) 7.3 % Normal 2.0 - 10.0 [facility] Comment on above: Performed By: #### C BCDF #### [facility] [address] [place] [address] Neutrophils (Bld) [#/Vol] 6.79 10*3/uL Normal 1.20 - 7.70 [facility] Comment on above: Performed By: #### C BCDF #### [facility] [address] [place] [address] Neutrophils/100 WBC (Bld) 67.1 % Normal 40.0 - 80.0 [facility] Comment on above: Performed By: #### C BCDF #### [facility] [address] [place] [address] NUCLEATED RBC 0.0 /100 WBC Normal 0.0-0.0 [facility] Comment on above: Performed By: #### C BCDF #### [facility] [address] [place] [address] Platelets (Bld) [#/Vol] 405 10*3/uL Normal 150 - 450 [facility] Comment on above: Performed By: #### C BCDF #### [facility] [address] [place] [address] RBC 3.77 x10E12/L Low 4.50 - 5.90 [facility] [place] Comment on above: Performed By: #### C BCDF #### [facility] [address] [place] [address] WBC (Bld) [#/Vol] 10.1 10*3/uL Normal 4.4 - 11.3 [facility] Comment on above: Performed By: #### C BCDF #### [facility] [address] [place] [address] Daily Progress Note-Pulmonol bonifacio 03-14-2021 Daily Progress [...] standpoint Objective Data: Objective Information: T PRBPSpO2 [id number]/7996% Date/Time03/14: 5:: 5: 5:23 Range(35.7C - 36.8C ) (81 - 92 ) (18 - 18 ) (103 - 160 )/ (62 - 79 ) (94% - 96% ) As of 09-Aug-2021 10:19:00, patient is on 4 L/min of [...] days. - OP Follow up with Local Sash Repairer in [facility] in 4 weeks to document resolution of [...] MD Pulmonary- Critical Care Fellow PGY-6 Pager [phone] Alexhalo Attestation: Note Completion: I am a: Resident/Fellow Attending AttestationI saw and evaluated the patient. I personally obtained the (more content not included)... Normal [facility] Order Reconciliationon 03-14 Order Reconciliation Page 1 Discharge Reconciliation Document Reconciliation Type: Discharge requested on behalf of Max Champion (Resident) done by Max Champion ( (Resident)) Discharge - Reconciliation: 14-Mar-2021 20:41 by: Max Champion ( (Resident)) Home Medications EnteredHOME MEDICATIONS AT DISCHARGE [...] was 03/08, next dose 03/15Notes from Pharmacy: [facility] 11-Mar-2021 16:07 Alpha 1-Proteinase Inhibitor (HUMAN) IV Piggy Back is not required Amoxicillin 875 mg - Clavulanate 125 mg Tablet (AUGMENTIN)DOSE = 1 tablet(s) Oral Every 12 Hours 14-Mar-2021 20:40 amoxicillin-clavulanate 875 mg-125 mg oral tablet 1 tab(s) orally every 12 hours -.Meds to [facility] 14-Mar-2021 20:41 Prescription is created for amoxicillin-clavulanate 875 mg-125 mg oral tablet Aspirin Chewable Tablet, ChewableDOSE = 81 mg Oral Daily 11-Mar-2021 16:07 Aspirin Chewable is not required Enoxaparin SubCutaneous (LOVENOX)DOSE = 40 mg SubCutaneous Every 24 Hours 11-Mar-2021 17:13 Enoxaparin SubCutaneous is not required Fluticasone 250 microgram -Salmeterol 50 microgram/ Inh Powder (ADVAIR DISKUS)DOSE = 1 inhalation Every 12 HoursNotes from Pharmacy: [facility] 11-Mar-2021 16:09 Fluticasone 250 microgram -Salmeterol 50 [...] tab(s) orally every 12 hours -.Meds to [facility] Aspirin Low Dose 81 mg oral tablet, chewable 1 orally once a day Multiple Aleksandra (more content not included)... Normal [facility] TH CHEST 1 VIEWon 03-14-2021 TH CHEST 1 VIEW Patient Name: BROCK COLEY STUDY: CHEST 1 VIEW; 03/14/2021 6:18 am INDICATION: COPD and PNA. COMPARISON: None. ACCESSION NUMBER(S): [id number] ORDERING CLINICIAN: MAX CHAMPION FINDINGS: CARDIOMEDIASTINAL SILHOUETTE: [...] Electronically signed by: Ollie HAGER MD Normal [facility] VANCOMYCIN,TROUGHon 03-14-20 21 VANCOMYCIN,TROUGH Canceled Normal [facility] Comment on above: Order Comment: TEST VANCOMYCIN,TROUGH WAS CANCELLED, 03/13/2021 23:56 DUPLICATE ORDER. Performed By: #### C BCDF #### [facility] [address] [place] [address] CBC AND DIFFERENTIALon 03-13 % AUTOMATED IMMATURE GRAN 0.4 % Normal 0.0 - 0.9 [facility] Comment on above: Result Comment: Suellen ture Granulocyte Count (IG) includes promyelocytes, myelocytes and metamyelocytes but does not include bands. Percent differential counts (%) should be interpreted in the context of the absolute cell counts (cells/L). Performed By: #### C BCDF #### [facility] [address] [place] [address] Basophils (Bld) [#/Vol] 0.05 10*3/uL Normal 0.00 - 0.10 [facility] Comment on above: Performed By: #### C BCDF #### [facility] [address] [place] [address] Basophils/100 WBC (Bld) 0.4 % Normal 0.0 - 2.0 [facility] Comment on above: Performed By: #### C BCDF #### [facility] [address] [place] [address] Eosinophils (Bld) [#/Vol] 0.22 10*3/uL Normal 0.00 - 0.70 [facility] Comment on above: Performed By: #### C BCDF #### [facility] [address] [place] [address] Eosinophils/100 WBC (Bld) 2.0 % Normal 0.0 - 6.0 [facility] Comment on above: Performed By: #### C BCDF #### [facility] [address] [place] [address] Erythrocyte distribution width (RBC) [Ratio] 12.0 % Normal 11.5 - 14.5 [facility] Comment on above: Performed By: #### C BCDF #### [facility] [address] [place] [address] Hematocrit (Bld) [Volume fraction] 39.5 % Low 41.0 - 52.0 [facility] Comment on above: Performed By: #### C BCDF #### [facility] [address] [place] [address] Hemoglobin (Bld) [Mass/Vol] 13.4 g/dL Low 13.5 - 17.5 [facility] Comment on above: Performed By: #### C BCDF #### [facility] [address] [place] [address] Lymphocytes (Bld) [#/Vol] 3.15 10*3/uL Normal 1.20 - 4.80 [facility] Comment on above: Performed By: #### C BCDF #### [facility] [address] [place] [address] Lymphocytes/100 WBC (Bld) 28.0 % Normal 13.0 - 44.0 [facility] Comment on above: Performed By: #### C BCDF #### [facility] [address] [place] [address] MCHC (RBC) [Mass/Vol] 33.9 g/dL Normal 32.0 - 36.0 [facility] Comment on above: Performed By: #### C BCDF #### [facility] [address] [place] [address] MCV (RBC) [Entitic vol] 98 fL Normal 80 - 100 [facility] Comment on above: Performed By: #### C BCDF #### [facility] [address] [place] [address] Monocytes (Bld) [#/Vol] 1.08 10*3/uL High 0.10 - 1.00 [facility] Comment on above: Performed By: #### C BCDF #### [facility] [address] [place] [address] Monocytes/100 WBC (Bld) 9.6 % Normal 2.0 - 10.0 [facility] Comment on above: Performed By: #### C BCDF #### [facility] [address] [place] [address] Neutrophils (Bld) [#/Vol] 6.72 10*3/uL Normal 1.20 - 7.70 [facility] Comment on above: Performed By: #### C BCDF #### [facility] [address] [place] [address] Neutrophils/100 WBC (Bld) 59.6 % Normal 40.0 - 80.0 [facility] Comment on above: Performed By: #### C BCDF #### [facility] [address] [place] [address] NUCLEATED RBC 0.0 /100 WBC Normal 0.0-0.0 [facility] Comment on above: Performed By: #### C BCDF #### [facility] [address] [place] [address] Platelets (Bld) [#/Vol] 424 10*3/uL Normal 150 - 450 [facility] Comment on above: Performed By: #### C BCDF #### [facility] [address] [place] [address] RBC 4.02 x10E12/L Low 4.50 - 5.90 [facility] [place] Comment on above: Performed By: #### C BCDF #### [facility] [address] [place] [address] WBC (Bld) [#/Vol] 11.3 10*3/uL Normal 4.4 - 11.3 [facility] Comment on above: Performed By: #### C BCDF #### [facility] [address] [place] [address] COMPREHENSIVE PANELon 2020 Albumin [Mass/Vol] 3.9 g/dL Normal 3.4 - 5.0 [facility] Comment on above: Performed By: #### C BCDF #### [facility] [address] [place] [address] ALP [Catalytic activity/Vol] 99 U/L Normal 33 - 136 [facility] Comment on above: Performed By: #### C BCDF #### [facility] [address] [place] [address] ALT [Catalytic activity/Vol] 101 U/L High 10 - 52 [facility] Comment on above: Result Comment: Oksana ents treated with Sulfasalazine may generate falsely decreased results for ALT. Performed By: #### C BCDF #### [facility] [address] [place] [address] Anion gap [Moles/Vol] 17 mmol/L Normal 10 - 20 [facility] Comment on above: Performed By: #### C BCDF #### [facility] [address] [place] [address] AST [Catalytic activity/Vol] 45 U/L High 9 - 39 [facility] Comment on above: Performed By: #### C BCDF #### [facility] [address] [place] [address] Bilirubin [Mass/Vol] 0.7 mg/dL Normal 0.0 - 1.2 [facility] Comment on above: Performed By: #### C BCDF #### [facility] [address] [place] [address] Calcium [Mass/Vol] 9.1 mg/dL Normal 8.6 - 10.6 [facility] Comment on above: Performed By: #### C BCDF #### [facility] [address] [place] [address] Chloride [Moles/Vol] 101 mmol/L Normal 98 - 107 [facility] Comment on above: Performed By: #### C BCDF #### [facility] [address] [place] [address] Creatinine [Mass/Vol] 0.96 mg/dL Normal 0.50 - 1.30 [facility] Comment on above: Performed By: #### C BCDF #### [facility] [address] [place] [address] GFR- AM. >60 Normal >60 [facility] Comment on above: Result Comment: CALC ULATIONS OF ESTIMATED GFR ARE PERFORMED USING THE MDRD STUDY EQUATION FOR THE IDMS-TRACEABLE CREATININE METHODS. CLIN CHEM 2007;53:766-72 Performed By: #### C BCDF #### [facility] [address] [place] [address] GFR-NON AM. >60 Normal >60 [facility] Comment on above: Performed By: #### C BCDF #### [facility] [address] [place] [address] Glucose [Mass/Vol] 108 mg/dL High 74 - 99 [facility] Comment on above: Performed By: #### C BCDF #### [facility] [address] [place] [address] HCO3 (Bld) [Moles/Vol] 22 mmol/L Normal 21 - 32 [facility] Comment on above: Performed By: #### C BCDF #### [facility] [address] [place] [address] Potassium [Moles/Vol] 4.7 mmol/L Normal 3.5 - 5.3 [facility] Comment on above: Performed By: #### C BCDF #### [facility] [address] [place] [address] Protein [Mass/Vol] 6.6 g/dL Normal 6.4 - 8.2 [facility] Comment on above: Performed By: #### C BCDF #### [facility] [address] [place] [address] Sodium [Moles/Vol] 135 mmol/L Low 136 - 145 [facility] Comment on above: Performed By: #### C BCDF #### [facility] [address] [place] [address] Urea nitrogen [Mass/Vol] 16 mg/dL Normal 6 - 23 [facility] Comment on above: Performed By: #### C BCDF #### [facility] [address] [place] [address] Daily Progress Note-Medicine on 03-13-2021 Daily Progress Note-Medicine Service: Medicine Subjective Data: BROCK COLEY is a 66 year old Male who is Hospital Day # 3. 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 Below plan not updated #Nunyr-9-rgxfptamtld deficiency #Emphysema with severe copd s/p LLL [...] the note. I personally evaluated the patient [id number] Comments/ Additional Findings Seen on rounds, reported [...] Updated: 13-Mar-2021 23:14 by Miriam Marks) Normal [facility] LEGIONELLA AG, URINEon 03-13 LEGIONELLA AG, URINE Negative Normal Negative [facility] Comment on above: Result Comment: NEGA TIVE FOR LEGIONELLA PNEUMOPHILIA SEROGROUP 1 ANTIGEN IN URINE, SUGGESTING NO CURRENT OR PAST INFECTION. Performed By: #### C BCDF #### [facility] [address] [place] [address] S.PNEUMONIAE AG,Uon 03-13-20 21 S.PNEUMONIAE AG,U Negative Normal Negative [facility] Comment on above: Result Comment: Pres umptive negative for pneumococcal pneumonia, suggesting no current or recent infection. Infection due to S. pneumoniae cannot be ruled out since the antigen present in the sample may be below the detection limit of the test. Performed By: #### S PNAG #### [facility] [address] [place] [address] TH CHEST 1 VIEWon 03-13-2021 TH CHEST 1 VIEW Patient Name: BROCK COLEY STUDY: CHEST 1 VIEW; 03/13/2021 6:08 am INDICATION: desat. COMPARISON: 03/12/2021 ACCESSION NUMBER(S): [id number] ORDERING CLINICIAN: ANNA MAN FINDINGS: AP radiograph [...] Electronically signed by: BASILIO OLIVAREZ MD Normal [facility] VANCOMYCIN,TROUGHon 03-13-20 21 VANCOMYCIN,TROUGH 12.8 ug/mL Normal 5.0 - 20.0 [facility] Comment on above: Result Comment: Vanc omycin [...] 2008. Performed By: #### V ANCT #### [facility] [address] [place] [address] C-REACTIVE PROTEINon 021 C-REACTIVE PROTEIN 11.18 mg/dL Abnormal [facility] Comment on above: Result Comment: REF VALUE < 1.00 Performed By: #### C RP #### [facility] [address] [place] [address] CBC AND DIFFERENTIALon 03-12 % AUTOMATED IMMATURE GRAN 0.5 % Normal 0.0 - 0.9 [facility] Comment on above: Result Comment: Suellen ture Granulocyte Count (IG) includes promyelocytes, myelocytes and metamyelocytes but does not include bands. Percent differential counts (%) should be interpreted in the context of the absolute cell counts (cells/L). Performed By: #### C BCDF #### [facility] [address] [place] [address] Basophils (Bld) [#/Vol] 0.03 10*3/uL Normal 0.00 - 0.10 [facility] Comment on above: Performed By: #### C BCDF #### [facility] [address] [place] [address] Basophils/100 WBC (Bld) 0.3 % Normal 0.0 - 2.0 [facility] Comment on above: Performed By: #### C BCDF #### [facility] [address] [place] [address] Eosinophils (Bld) [#/Vol] 0.15 10*3/uL Normal 0.00 - 0.70 [facility] Comment on above: Performed By: #### C BCDF #### [facility] [address] [place] [address] Eosinophils/100 WBC (Bld) 1.6 % Normal 0.0 - 6.0 [facility] Comment on above: Performed By: #### C BCDF #### [facility] [address] [place] [address] Erythrocyte distribution width (RBC) [Ratio] 12.1 % Normal 11.5 - 14.5 [facility] Comment on above: Performed By: #### C BCDF #### [facility] [address] [place] [address] Hematocrit (Bld) [Volume fraction] 37.4 % Low 41.0 - 52.0 [facility] Comment on above: Performed By: #### C BCDF #### [facility] [address] [place] [address] Hemoglobin (Bld) [Mass/Vol] 13.0 g/dL Low 13.5 - 17.5 [facility] Comment on above: Performed By: #### C BCDF #### [facility] [address] [place] [address] Lymphocytes (Bld) [#/Vol] 2.27 10*3/uL Normal 1.20 - 4.80 [facility] Comment on above: Performed By: #### C BCDF #### [facility] [address] [place] [address] Lymphocytes/100 WBC (Bld) 24.0 % Normal 13.0 - 44.0 [facility] Comment on above: Performed By: #### C BCDF #### [facility] [address] [place] [address] MCHC (RBC) [Mass/Vol] 34.8 g/dL Normal 32.0 - 36.0 [facility] Comment on above: Performed By: #### C BCDF #### [facility] [address] [place] [address] MCV (RBC) [Entitic vol] 97 fL Normal 80 - 100 [facility] Comment on above: Performed By: #### C BCDF #### [facility] [address] [place] [address] Monocytes (Bld) [#/Vol] 0.95 10*3/uL Normal 0.10 - 1.00 [facility] Comment on above: Performed By: #### C BCDF #### [facility] [address] [place] [address] Monocytes/100 WBC (Bld) 10.1 % Normal 2.0 - 10.0 [facility] Comment on above: Performed By: #### C BCDF #### [facility] [address] [place] [address] Neutrophils (Bld) [#/Vol] 6.00 10*3/uL Normal 1.20 - 7.70 [facility] Comment on above: Performed By: #### C BCDF #### [facility] [address] [place] [address] Neutrophils/100 WBC (Bld) 63.5 % Normal 40.0 - 80.0 [facility] Comment on above: Performed By: #### C BCDF #### [facility] [address] [place] [address] NUCLEATED RBC 0.0 /100 WBC Normal 0.0-0.0 [facility] Comment on above: Performed By: #### C BCDF #### [facility] [address] [place] [address] Platelets (Bld) [#/Vol] 406 10*3/uL Normal 150 - 450 [facility] Comment on above: Performed By: #### C BCDF #### [facility] [address] [place] [address] RBC 3.84 x10E12/L Low 4.50 - 5.90 [facility] [place], [facility] Comment on above: Performed By: #### C BCDF #### [facility] [address] [place] [address] WBC (Bld) [#/Vol] 9.5 10*3/uL Normal 4.4 - 11.3 [facility] Comment on above: Performed By: #### C BCDF #### [facility] [address] [place] [address] Daily Progress Note-Medicine on 03-12-2021 Daily Progress Note-Medicine Service: Medicine Subjective Data: BROCK COLEY is a 66 year old Male who is Hospital Day # 2. Objective Data: Objective Information: T PRBPSpO2 [id number]/8491% Date/Time03/12 13: 13: 13: 13: 13:18 Range(35.5C [...] is a 66 year old Male with pcdoo-1-rlqriuxtfh deficiency (on weekly Prolastin-C, 1000mg IV every [...] to 2-3 L Below plan not updated #Sefxy-8-mttrhkegfzh deficiency #Emphysema with severe copd s/p LLL [...] the note. I personally evaluated the patient [id number] Comments/ Additional Findings Please refer to H&P Electronic Signatures: Anna Johnson (Resident)) (Signed 12-Mar-2021 14:40) Authored: Subjective (more content not included)... Normal [facility] LEGIONELLA AG, URINEon 03-12 Lab Specimen Source Normal [facility] Comment on above: Performed By: #### C BCDF #### [facility] [address] [place] [address] MAGNESIUMon 03-12-2021 Magnesium [Mass/Vol] 2.24 mg/dL Normal 1.60 - 2.40 [facility] Comment on above: Performed By: #### M G #### [facility] [address] [place] [address] RENAL FUNCTION PANELon 03-12 Albumin [Mass/Vol] 3.9 g/dL Normal 3.4 - 5.0 [facility] Comment on above: Performed By: #### R ENAL #### [facility] [address] [place] [address] Anion gap [Moles/Vol] 13 mmol/L Normal 10 - 20 [facility] Comment on above: Performed By: #### R ENAL #### [facility] [address] [place] [address] Calcium [Mass/Vol] 9.3 mg/dL Normal 8.6 - 10.6 [facility] Comment on above: Performed By: #### R ENAL #### [facility] [address] [place] [address] Chloride [Moles/Vol] 100 mmol/L Normal 98 - 107 [facility] Comment on above: Performed By: #### R ENAL #### [facility] [address] [place] [address] Creatinine [Mass/Vol] 0.83 mg/dL Normal 0.50 - 1.30 [facility] Comment on above: Performed By: #### R ENAL #### [facility] [address] [place] [address] GFR- AM. >60 Normal >60 [facility] Comment on above: Result Comment: CALC ULATIONS OF ESTIMATED GFR ARE PERFORMED USING THE MDRD STUDY EQUATION FOR THE IDMS-TRACEABLE CREATININE METHODS. CLIN CHEM 2007;53:766-72 Performed By: #### R ENAL #### [facility] [address] [place] [address] GFR-NON AM. >60 Normal >60 [facility] Comment on above: Performed By: #### R ENAL #### [facility] [address] [place] [address] Glucose [Mass/Vol] 114 mg/dL High 74 - 99 [facility] Comment on above: Performed By: #### R ENAL #### [facility] [address] [place] [address] HCO3 (Bld) [Moles/Vol] 25 mmol/L Normal 21 - 32 [facility] Comment on above: Performed By: #### R ENAL #### [facility] [address] [place] [address] Phosphate [Mass/Vol] 4.0 mg/dL Normal 2.5 - 4.9 [facility] Comment on above: Result Comment: The performance characteristics of phosphorus testing in heparinized plasma have been validated by the individual laboratory site where testing is performed. Testing on heparinized plasma is not approved by the FDA; however, such approval is not necessary. Performed By: #### R ENAL #### [facility] [address] [place] [address] Potassium [Moles/Vol] 4.2 mmol/L Normal 3.5 - 5.3 [facility] Comment on above: Performed By: #### R ENAL #### [facility] [address] [place] [address] Sodium [Moles/Vol] 134 mmol/L Low 136 - 145 [facility] Comment on above: Performed By: #### R ENAL #### [facility] [address] [place] [address] Urea nitrogen [Mass/Vol] 15 mg/dL Normal 6 - 23 [facility] Comment on above: Performed By: #### R ENAL #### [facility] [address] [place] [address] RESPIRATORY CULT./SM,LOWERon 03-12-2021 RESPIRATORY CULT./SM,LOWER PATIENT: BROCK COLEY LOCATION: [address]#: [id number] : 53 AGE: SEX: M ORDERED BY: ANNA JOHNSON SOURCE: SPUTUM COLLECTED: 03/12/21 13:04 ANTIBIOTICS AT DIO.: RECEIVED : 03/12/21 15:41 SITE: R E S U L T S GRAM STAIN FINAL 03/12/21 16:45 GRAM STAIN INDICATES SPECIMEN CONSISTS OF LOWER RESPIRATORY TRACT SECRETIONS. NO PREDOMINANT ORGANISM. RESPIRATORY CULT./SM,LOWER FINAL 03/14/21 11:59 NORMAL THROAT MELANIE. Normal [facility] Comment on above: Performed By: #### R ESPL #### [facility] [address] [place] [address] TH CHEST 1 VIEWon 03-12-2021 TH CHEST 1 VIEW Patient Name: BROCK COLEY STUDY: CHEST 1 VIEW; 03/12/2021 3:53 am INDICATION: COPD with HAP. COMPARISON: 03/11/2021 ACCESSION NUMBER(S): [id number] ORDERING CLINICIAN: MAX CHAMPION FINDINGS: AP radiograph [...] Electronically signed by: BASILIO OLIVAREZ MD Normal [facility] Admission Risk Screen - Adul ton 03-11-2021 [...] AlertFor Ebola-like Symptoms: Isolate Patient and Notify Provider/Nib Finisher For Contact: Notify Provider/Nib Finisher Advance Directive: Advance Directive/DNRno Advance Directive Information [...] Learning Preferencesverbal instruction Cultural Considerationsnone Developmental Considerationsnone Temple Considerationsnone Learning Assessment (Other Learner): Other learner availableyes... Learnerspouse Factors Influencing Readiness to Learnnone Factors that Impact Ability to Learnnone Devices/Methods Used to Communicatenone Learning Preferencesverbal instruction Cultural Considerationsnone Developmental Considerationsnone Temple Considerationsnone Depression Screen: During the past month, have you often been bothered by feeling down, depressed or hopelessno During the past month, have you often had little interest or pleasure in doing thingsno Have you had any thoughts of harming anyone elseno Millen Suicide: Risk Screen Not Applicable/Able to Answerable to be screened In the Past Month: Have you wished you were or could go to sleep and not wake upno In the Past Month: Have you had any actual thoughts of killing yourselfno Lifetime: Have you ever done, started to do, or prepared to do anything to end your lifeno Millen Suicide Risknegative Adult Nutrition Screen: Have you [...] = Non (more content not included)... Normal [facility] BLOOD CULTURE, BACTERIALon 0 03-11-2021 BLOOD CULTURE, BACTERIAL PATIENT: BROCK COLEY LOCATION: [address] BILL#: [id number] : 53 AGE: SEX: M ORDERED BY: MIRIAM MARKS SOURCE: Blood COLLECTED: 03/11/21 17:20 ANTIBIOTICS AT DIO.: RECEIVED : 03/11/21 18:34 SITE: PERIPHERAL R E S U L T S BLOOD CULTURE, BACTERIAL FINAL 03/16/21 19:42 No Growth at 1 days No Growth at 2 days No Growth at 3 days No Growth at 4 days NO GROWTH - FINAL REPORT Normal [facility] Comment on above: Performed By: #### C BCDF #### [facility] [address] [place] [address] BLOOD CULTURE, BACTERIAL PATIENT: BORCK COLEY LOCATION: [address] BILL#: [id number] : 53 AGE: SEX: M ORDERED BY: MIRIAM MARKS SOURCE: Blood COLLECTED: 03/11/21 17:19 ANTIBIOTICS AT DIO.: RECEIVED : 03/11/21 18:34 SITE: PERIPHERAL R E S U L T S BLOOD CULTURE, BACTERIAL FINAL 03/16/21 19:42 No Growth at 1 days No Growth at 2 days No Growth at 3 days No Growth at 4 days NO GROWTH - FINAL REPORT Normal [facility] Comment on above: Performed By: #### C BCDF #### [facility] [address] [place] [address] C-REACTIVE PROTEINon 021 C-REACTIVE PROTEIN 11.84 mg/dL Abnormal [facility] Comment on above: Result Comment: REF VALUE < 1.00 Performed By: #### C RP #### [facility] [address] [place] [address] CBC AND DIFFERENTIALon 03-11 % AUTOMATED IMMATURE GRAN 0.3 % Normal 0.0 - 0.9 [facility] Comment on above: Result Comment: Suellen ture Granulocyte Count (IG) includes promyelocytes, myelocytes and metamyelocytes but does not include bands. Percent differential counts (%) should be interpreted in the context of the absolute cell counts (cells/L). Performed By: #### C RP #### [facility] [address] [place] [address] Basophils (Bld) [#/Vol] 0.03 10*3/uL Normal 0.00 - 0.10 [facility] Comment on above: Performed By: #### C RP #### [facility] [address] [place] [address] Basophils/100 WBC (Bld) 0.3 % Normal 0.0 - 2.0 [facility] Comment on above: Performed By: #### C RP #### [facility] [address] [place] [address] Eosinophils (Bld) [#/Vol] 0.10 10*3/uL Normal 0.00 - 0.70 [facility] Comment on above: Performed By: #### C RP #### [facility] [address] [place] [address] Eosinophils/100 WBC (Bld) 1.0 % Normal 0.0 - 6.0 [facility] Comment on above: Performed By: #### C RP #### [facility] [address] [place] [address] Erythrocyte distribution width (RBC) [Ratio] 12.1 % Normal 11.5 - 14.5 [facility] Comment on above: Performed By: #### C RP #### [facility] [address] [place] [address] Hematocrit (Bld) [Volume fraction] 39.3 % Low 41.0 - 52.0 [facility] Comment on above: Performed By: #### C RP #### [facility] [address] [place] [address] Hemoglobin (Bld) [Mass/Vol] 13.5 g/dL Normal 13.5 - 17.5 [facility] Comment on above: Performed By: #### C RP #### [facility] [address] [place] [address] Lymphocytes (Bld) [#/Vol] 2.00 10*3/uL Normal 1.20 - 4.80 [facility] Comment on above: Performed By: #### C RP #### [facility] [address] [place] [address] Lymphocytes/100 WBC (Bld) 20.6 % Normal 13.0 - 44.0 [facility] Comment on above: Performed By: #### C RP #### [facility] [address] [place] [address] MCHC (RBC) [Mass/Vol] 34.4 g/dL Normal 32.0 - 36.0 [facility] Comment on above: Performed By: #### C RP #### [facility] [address] [place] [address] MCV (RBC) [Entitic vol] 98 fL Normal 80 - 100 [facility] Comment on above: Performed By: #### C RP #### [facility] [address] [place] [address] Monocytes (Bld) [#/Vol] 0.98 10*3/uL Normal 0.10 - 1.00 [facility] Comment on above: Performed By: #### C RP #### [facility] [address] [place] [address] Monocytes/100 WBC (Bld) 10.1 % Normal 2.0 - 10.0 [facility] Comment on above: Performed By: #### C RP #### [facility] [address] [place] [address] Neutrophils (Bld) [#/Vol] 6.59 10*3/uL Normal 1.20 - 7.70 [facility] Comment on above: Performed By: #### C RP #### [facility] [address] [place] [address] Neutrophils/100 WBC (Bld) 67.7 % Normal 40.0 - 80.0 [facility] Comment on above: Performed By: #### C RP #### [facility] [address] [place] [address] NUCLEATED RBC 0.0 /100 WBC Normal 0.0-0.0 [facility] Comment on above: Performed By: #### C RP #### [facility] [address] [place] [address] Platelets (Bld) [#/Vol] 393 10*3/uL Normal 150 - 450 [facility] Comment on above: Performed By: #### C RP #### [facility] [address] [place] [address] RBC 4.01 x10E12/L Low 4.50 - 5.90 [facility] [place] Comment on above: Performed By: #### C RP #### [facility] [address] [place] [address] WBC (Bld) [#/Vol] 9.7 10*3/uL Normal 4.4 - 11.3 [facility] Comment on above: Performed By: #### C RP #### [facility] [address] [place] [address] COMPREHENSIVE PANELon 2020 Albumin [Mass/Vol] 4.2 g/dL Normal 3.4 - 5.0 [facility] Comment on above: Performed By: #### C BCDF #### [facility] [address] [place] [address] ALP [Catalytic activity/Vol] 93 U/L Normal 33 - 136 [facility] Comment on above: Performed By: #### C BCDF #### [facility] [address] [place] [address] ALT [Catalytic activity/Vol] 82 U/L High 10 - 52 [facility] Comment on above: Result Comment: Oksana ents treated with Sulfasalazine may generate falsely decreased results for ALT. Performed By: #### C BCDF #### [facility] [address] [place] [address] Anion gap [Moles/Vol] 17 mmol/L Normal 10 - 20 [facility] Comment on above: Performed By: #### C BCDF #### [facility] [address] [place] [address] AST [Catalytic activity/Vol] 37 U/L Normal 9 - 39 [facility] Comment on above: Performed By: #### C BCDF #### [facility] [address] [place] [address] Bilirubin [Mass/Vol] 0.5 mg/dL Normal 0.0 - 1.2 [facility] Comment on above: Performed By: #### C BCDF #### [facility] [address] [place] [address] Calcium [Mass/Vol] 9.6 mg/dL Normal 8.6 - 10.6 [facility] Comment on above: Performed By: #### C BCDF #### [facility] [address] [place] [address] Chloride [Moles/Vol] 101 mmol/L Normal 98 - 107 [facility] Comment on above: Performed By: #### C BCDF #### [facility] [address] [place] [address] Creatinine [Mass/Vol] 0.68 mg/dL Normal 0.50 - 1.30 [facility] Comment on above: Performed By: #### C BCDF #### [facility] [address] [place] [address] GFR- AM. >60 Normal >60 [facility] Comment on above: Result Comment: CALC ULATIONS OF ESTIMATED GFR ARE PERFORMED USING THE MDRD STUDY EQUATION FOR THE IDMS-TRACEABLE CREATININE METHODS. CLIN CHEM 2007;53:766-72 Performed By: #### C BCDF #### [facility] [address] [place] [address] GFR-NON AM. >60 Normal >60 [facility] Comment on above: Performed By: #### C BCDF #### [facility] [address] [place] [address] Glucose [Mass/Vol] 100 mg/dL High 74 - 99 [facility] Comment on above: Performed By: #### C BCDF #### [facility] [address] [place] [address] HCO3 (Bld) [Moles/Vol] 23 mmol/L Normal 21 - 32 [facility] Comment on above: Performed By: #### C BCDF #### [facility] [address] [place] [address] Potassium [Moles/Vol] 4.7 mmol/L Normal 3.5 - 5.3 [facility] Comment on above: Performed By: #### C BCDF #### [facility] [address] [place] [address] Protein [Mass/Vol] 7.1 g/dL Normal 6.4 - 8.2 [facility] Comment on above: Performed By: #### C BCDF #### [facility] [address] [place] [address] Sodium [Moles/Vol] 136 mmol/L Normal 136 - 145 [facility] Comment on above: Performed By: #### C BCDF #### [facility] [address] [place] [address] Urea nitrogen [Mass/Vol] 15 mg/dL Normal 6 - 23 [facility] Comment on above: Performed By: #### C BCDF #### [facility] [address] [place] [address] Clinical Event Note-Senior Vish marte noteon 03-11-2021 [...] 17:37 by Max Champion ( (Resident)) Normal [facility] Consult-Pulmonologyon 2020 Consult-Pulmonology Service: Service: Pulmonology Consult: [...] valves, RVSP ~17 mmHg SURGICAL HX: Cholecystectomy 2009 at [facility] FAMILY HX: Multiple members- COPD, leukemia, gastric [...] the note. I personally evaluated the patient cl85-Iyf-[id number] (more content not included)... Normal [facility] Discharge Planning Jbef5mg 0 03-11-2021 Discharge Planning Note2 Discharge Planning: Needs Prior to Discharge (ex. Home Care Orders, IV/O2 prescriptions) f/u appts Planned Dispositionhome Discharge DestinationHome with spouse AMPAC < 20no Anticipated Discharge Dwqr93-Nmi-2838 Discharge Planning Admission Note: 03/11/21 14:55 Pt admitted from his pulmonologists office. He presented with intermittent fevers and a decreased pulse ox with activity. Pt's vital signs are stable and he is afebrile. He has no c/o pain. Awaiting MD orders. Lisa Hernandez RN. prevention coordinator Note: 03/15/21 1400 Pt dc home with . Pt given meds to bed and remains on 4L 02. Pt educated on discharge instructions and follow up appointment. Stephania Tran RN Discharge Barriersnone Assessment: Discharge Planning Assessment Hoer68-Utn-8279 Discharge Planning Assessment Completed Ant Siddiqui RNbrazer assembler Coordinator Primary Contact Name and NumberDarlene (spouse)-[phone]/ Stated Reason for AdmissionI was having fevers at home.(1) Arrived Fromphysician office (1) PCPViraj Ruiz- procedures rn PCP Last Date Seen04/2020 [facility] [place] Medication Adherence/Afford/Obtainye s InsuranceMedi A/B/Aetna Sr Supp Lives Withspouse; pt's phone #: [phone] Living Arrangementshouse(1) Recent Falls/ Injury/ Need Assist with Ambulationdenies Prior Level of Functioningindependent with ADLS Equipment Currently Used at HomeN/A Home Care Agency/Support ServicesN/A DME Supplier Name/NumberN/A Home O2/BiPAP/CPAPHome O2 O2 [place] Home O2 Supplier[facility] [employer] [phone] Diabetic/Supplies NeededN/A Hemodialysis ScheduleN/A Resource/Environmental Concernsnone(1) Social [...] to follow for discharge needs. Vaishali Siddiqui RNbrazer assembler Coordinator Discharge Documentation: Discharge/Transfer Date/Rsci68-Gzc-6275 Electronic Signatures: Lisa Hernandez (RN) (Signed 11-Mar-2021 18:00) Authored: Discharge Planning, Assessment, Discharge Documentation Vaishali Siddiqui (CLIN COOR) (Signed 14-Mar-2021 15:04) Authored: Discharge Planning, Assessment Stephania Tran (RN) (Signed 15-Mar-2021 14:29) Authored: Discharge Planning Last Updated: 15-Mar-2021 14:29 by Stephania Tran (RN) References: 1. Data Referenced From Patient Profile - Adult v2 11-Mar-2021 17:52 Normal [facility] Discharge Sbxxtji1ez 021 Discharge Profile2 Discharge Orders: Anticipated Discharge Date: Anticipated Discharge Djol32-Xih-9600 Anticipated Discharge Time13:38 DNAR: DNAR Status: none Oxygen: Administer oxygen at 4 via to maintain SpO2 % of. Hospital Course (Home Care/Gold Form): Hospital Course: Hospital Course: include significant abnormal lab values Mr. Brock Coley is a 66 year old Male with xedgc-2-vgooreoyuj deficiency (on weekly Prolastin-C, 1000mg IV every [...] Medication Reconciliation and Orders Completedby Physician Reviewing ProviderSecho Champion MD (Resident) at 15-Mar-2021 13:39:15 Appointments: Follow-Up Appointment 01: Physician/Dept/ [facility] Primary Care Physician Scheduled Date/Jlla95-Dfu-9302 09:[address] [place] [address] Phone [phone] CommentsPlease arrive 10-15 minutes early, bring photo ID, insurance cards, discharge summary, and a list of current medications. Please call the office if you need to change this appointment. Follow-Up Appointment 02: Physician/Dept/Ryan swanson Sash Repairer Reason for ReferralCOPD Call to Schedule in1 week [facility] Electronic Signatures: Max Champion ( (Resident)) (Signed 15-Mar-2021 13:39) Authored: Discharge Orders, Hospital Course (Home Care/Gold Form), Provider FINAL REVIEW of Orders, Appointments Franki Palacios ( (Resident)) (Signed 15-Mar-2021 08:29) Authored: Discharge Orders, Hospital Course (Home Care/Gold Form), Provider FINAL REVIEW of Orders Arleth Solares ( (Resident)) (Signed 11-Mar-2021 20:21) Authored: Discharge Orders, Hospital Course (Home Care/Gold Form), Gold Form - Upholstery Trimmer Summary Alyson Cao (PT ACC REP) (Signed 15-Mar-2021 11:40) Authored: Discharge Orders, Appointments Last Updated: 15-Mar-2021 13:39 by Max Champion (Resident)) Normal [facility] Follow Up (Pulmonary Medicin e)on 03-11-2021 Follow [...] History: +COPD +Leukemia +gastric cancer Active 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 Vitals Vital Signs Recorded: 11Mar2021 01:01PM Yimahgdwuey56.4 C Heart Rate92 Systolic1 (more content not included)... Normal [employer] Order Reconciliationon 03-11 Order Reconciliation Page 1 Admission Reconciliation Document Reconciliation Type: Admission requested on behalf of Max Champion (Resident) done by Max Champion (Resident)) Admission - Reconciliation: 11-Mar-2021 16:07 by: Max Champion (Resident)) Home MedicationsEnteredLast Dose TakenReconciled with current Order Reconciliation Comment/ Additional Information albuterol 90 mcg/inh inhalation aerosol with adapter 2 puff(s) inhaled every 4 hours, As Prbvol80-Civ-4636 Albuterol 2.5 mg/ 3 mL Nebulizer Soln (PROVENTIL)DOSE = 3 mL Inhalation Every 4 Hours via Nebulizeralbuterol 90 mcg/inh inhalation aerosol with adapter continued as the inpatient order Albuterol 2.5 mg/ 3 mL Nebulizer Soln Aspirin Low Dose 81 mg oral tablet, chewable 1 orally once a mzm89-Wyo-5124 Aspirin Chewable Tablet, ChewableDOSE = 81 mg Oral DailyAspirin Low Dose 81 mg oral tablet, chewable continued as the inpatient order Aspirin Chewable Multiple Vitamins oral tablet 1 tab(s) orally once a sce24-Nra-2746 Vitamin B Complex with C EachDOSE = 1 each Oral DailyMultiple Vitamins oral tablet continued as the inpatient order Vitamin B Complex with C primidone 250 mg oral tablet 1 orally every 12 bqueg18-Zlu-7198 Primidone Tablet (MYSOLINE)DOSE = 250 mg Oral [...] minute(s)Clinician Notes: Weekly on last dose was 8/3, next dose 8/Prolastin-C intravenous solution continued as the inpatient order Alpha 1-Proteinase Inhibitor (HUMAN) IV Piggy Back Trelegy Ellipta 100 mcg-62.5 mcg-25 mcg/inh inhalation powder 1 puff(s) inhaled once a klq71-Vjj-8596 Reviewed and Held vitamin E 400 intl units oral capsule 1 cap(s) orally once a ofo05-Rtk-0443 Reviewed and Held Normal [facility] Patient Profile - Adult v2on 03-11-2021 Patient [...] e(1) Weight in kg111.3 kilogram(s)(2) Weight in snx977.3 pound(s) Weight Methodstated Scale Typebed Height in [...] No Known Allergies: Active Electronic Signatures: Lisa Hernandez (JIGAR) (Signed 11-Mar-2021 17:56) Authored: Initial Info, General Health, RSP Based Care, Substance, Health Mgmt, Relationship/Environ, Additional Information Last Updated: 11-Mar-2021 17:56 by Lisa Hernandez (JIGAR) References: 1. Data Referenced From Patient Profile - Procedure-H and P 25-Feb-2021 15:43 2. Data Referenced From 1. Vital Signs 11-Mar-2021 15:12 Normal [facility] RESPIRATORY CULT./SM,LOWERon 03-11-2021 RESPIRATORY CULT./SM,LOWER PATIENT: BROCK COLEY LOCATION: [address] BILL#: [id number] : 53 AGE: SEX: M ORDERED BY: [...] INDICATED. RESPIRATORY CULT./SM,LOWER CANCELLED 03/12/21 09:05 Normal [facility] Comment on above: Performed By: #### C RP #### [facility] [address] [place] [address] STAPH/MRSA SCREENon 03-11-20 21 STAPH/MRSA SCREEN PATIENT: JAMIR COLEY LOCATION: [address]#: [id number] : 53 AGE: SEX: M ORDERED BY: MIRIAM MARKS SOURCE: MISC COLLECTED: 03/11/21 18:33 ANTIBIOTICS AT DIO.: RECEIVED : 03/11/21 22:02 SITE: Nasal/Groin and Axilla R E S U L T S STAPH/MRSA SCREEN FINAL 03/13/21 10:45 NO Staphylococcus aureus ISOLATED. Normal [facility] Comment on above: Performed By: #### C RP #### [facility] [address] [place] [address] TH CHEST 2 VIEW PA AND LATon 03-11-2021 TH CHEST 2 VIEW PA AND LAT Patient Name: BROCK COLEY STUDY: TH CHEST 2 VIEW PA AND LAT; 03/11/2021 5:21 pm INDICATION: COPD with HAP. COMPARISON: Prior chest radiograph from 03/03/2021 ACCESSION NUMBER(S): [id number] ORDERING CLINICIAN: MAX CHAMPION FINDINGS: PA and [...] Electronically signed by: BASILIO OLIVAREZ MD Normal [facility] TH CT CHEST WO CONTRASTon TH CT CHEST WO CONTRAST STUDY: CT Chest without IV Contrast; 03/11/2021 11:19 AM INDICATION: [place] valve, emphysema, shortness of breath. Chronic respiratory failure with hypoxia. COMPARISON: 03/03/2021 XR Chest. ACCESSION NUMBER(S): [id number] ORDERING CLINICIAN: SALINAS RUIZ MD TECHNIQUE: CT [...] Electronically signed by: CARMENZA SANTOS DO Normal [facility] No Panel Informationon 03-03 Please click on [...] lobe. COMPARISON: Chest radiograph 03/03/2021. ACCESSION NUMBER(S): [id number] ORDERING CLINICIAN: AMBER ARROYO FINDINGS: PA chest [...] as stated. This study was interpreted at [facility], [place], [place]. Electronically signed by: Ollie HAGER MD [facility] TH CHEST 1 VIEWon 03-03-2021 TH CHEST 1 VIEW Patient Name: BROCK COLEY STUDY: CHEST 1 VIEW; 03/03/2021 5:04 am INDICATION: post LLL endobronchial valve insertion. COMPARISON: 03/02/2021 ACCESSION NUMBER(S): [id number] ORDERING CLINICIAN: ZIYAD WILLINGHAM FINDINGS: AP radiograph [...] pneumothorax. Electronically signed by: MANDY JIMENEZ MD Normal [facility] Daily Progress Note-DACRon 0 03-02-2021 Daily Progress Note-DACR Service: DACR Subjective Data: BROCK COLEY is a 65 year old Male who is Hospital Day # 3. Additional Information: Pt seen and examined at bedside. No acute events overnight per RN. Pt companding of some L chest soreness otherwise has no complaints at this time. Objective Data: Objective Information: T PRBPSpO2 Value36.47048463/7993% Date/Time03/02 9: 9: 9: 9: 9:36 Range(36.2C [...] the note. I personally evaluated the patient [id number] Electronic Signatures: Thang Lorenzo) (Signed 02-Mar-2021 21:32) Authored: Note Completion Co-Signer: Objective Data, Assessment and Plan, Note Completion Amber Arroyo (Resident)) (Signed 02-Mar-2021 15:30) Authored: Service, Subjective Data, Objective Data, Assessment and Plan, Note Completion Last Updated: 02-Mar-2021 21:32 by Thang Lorenzo) Normal [facility] Order Reconciliationon 03-02 Order Reconciliation Page 1 Discharge Reconciliation Document Reconciliation Type: Discharge requested on behalf of Amber Arroyo (Resident) done by Amber Arroyo ( (Resident)) Discharge - Partial Reconciliation: 02-Mar-2021 17:17 by: Ziyad Willingham ( (Resident)) Discharge - Partial Reconciliation: 03-Mar-2021 09:16 by: Amber Arroyo ( (Resident)) Discharge - Reconciliation: 03-Mar-2021 12:02 by: Amber Arroyo ( (Resident)) Home Medications EnteredHOME MEDICATIONS AT DISCHARGE [...] Additional Information Albuterol 90 micrograms/ Inhalation MDI (CONSTANTINE HUGHES)DOSE = 2 inhalation Every 4 Hours via MDI, PRN Shortness of BreathNotes from Pharmacy: [facility] 28-Feb-2021 16:01 Albuterol 90 micrograms/ Inhalation MDI is not required Aspirin Chewable Tablet, ChewableDOSE = 81 mg Oral Daily 28-Feb-2021 16:01 Aspirin Chewable is not required Enoxaparin SubCutaneous (LOVENOX)DOSE = 40 mg SubCutaneous Every 24 Hours 28-Feb-2021 16:01 Enoxaparin SubCutaneous is not required Fluticasone 100 microgram -Salmeterol 50 microgram/ Inh Powder (ADVAIR DISKUS)DOSE = 1 inhalation Every 12 HoursNotes from Pharmacy: [facility] 01-Mar-2021 13:15 Fluticasone 100 microgram -Salmeterol 50 [...] inhalation DailyClinician Notes: hospital substitute for home Elke Singh from Pharmacy: Substitution for Fluticasone 100 mcg [...] weekly o (more content not included)... Normal [facility] Radiologyon 03-02-2021 XR Chest Single view Normal [facility] Work Phone: [phone] CHEST 1 VIEWon 03-02-2021 TH CHEST 1 VIEW Patient Name: BROCK COLEY STUDY: CHEST 1 VIEW; 03/02/2021 4:23 am INDICATION: AM CXR, daily cxr following endobronchial valve placement, eval for pneumothorax. COMPARISON: 03/01/2021 ACCESSION NUMBER(S): [id number] ORDERING CLINICIAN: COLTON RICH FINDINGS: Portable AP [...] edema. Electronically signed by: BASILIO OLIVAREZ MD [facility] Daily Progress Note-DACRon 0 03-01-2021 Daily Progress Note-DACR Service: DACR Subjective Data: BROCK COLEY is a 65 year old Male who is Hospital Day # 2. -No acute events overnight -Patient feeling well this AM, no dyspnea. Objective Data: Objective Information: T PRBPSpO2 Value36.50490412/5797% Date/Time03/01 14: 14: 14: 14: 14:35 Range(35.7C [...] the following: I personally evaluated the patient [id number] Comments/ Additional Findings 65-year-old man with alpha-1 [...] Updated: 01-Mar-2021 16:07 by Thang Lorenzo) Normal [facility] Discharge Planning Qqty1zx 0 03-01-2021 Discharge Planning Note2 Discharge Planning: Needs Prior to Discharge (ex. Home Care Orders, IV/O2 prescriptions) F/u appts Discharge Barriers (ex. 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 Team members present: TCC and MD Plan per Medical/Surgical team: Needs to be monitored 3 days after Bronch procedure, monitoring labs and vitals Payer: Medicare Status: Observation Discharge disposition: Home no needs Potential Barriers: None at this time ADOD: 03/04 M. Kusum Eubanks RN BSN Transitional Vendor Management Specialist [phone] Transitional Vendor Management Specialist Note: 03/01/2021@ 13:53 Met with patient/ to introduce myself, role and discus discharge planning. Patient lives with his spouse. Independent in all ADL's. Requires no assist devices for ambulation. Denies active home care or home care needs. Will continue to monitor patient for all home going needs. Abbey Portillo RN [facility] [phone] 03/03/21 9:30 AM Transitional Care Coordination Progress Note: Patient discussed during interdisciplinary rounds. Team members present: TCC and MD Plan per Medical/Surgical team: Pt scheduled for priority Tomogram today, monitoring labs and vitals Payer: Medicare Status: Inpatient Discharge disposition: Home no needs Potential Barriers: None at this time ADOD: 03/04 Riri Eubanks RN BSN Transitional Vendor Management Specialist [phone] Assessment: Discharge Planning Assessment Fqef11-Ggo-9155 Discharge Planning Assessment Completed byAbbey Portillo RN [facility] [phone] Primary Contact Name and NumberDarjose angel Valles () [phone] Tacho Ruiz DO Preferred Pharmacy Name/Location[facility] Medication Adherence/Afford/Obtainye s InsuranceMedicare A/B and Aetna Sr Supplement Lives Withspouse Living Arrangementshouse Recent Falls/ Injury/ Need Assist with AmbulationN/A Prior Level of FunctioningIndependent Home Care Agency/Support ServicesN/A Diabetic/Supplies NeededN/A Hemodialysis ScheduleN/A Social Determinants of Health IdentifiedHealth Literacy Transportation Home Who/HowDarjose angel will be providing transportation when discharged. Anticipated [...] 13:11 by Aditya Arnold (ADV CLIN N) [facility] Discharge Ivgfnum1fm 07-27-2 021 Discharge Profile2 Discharge Orders: Anticipated Discharge Date: Anticipated Discharge Xwal49-Bbg-7226 DNAR: DNAR Status: none Hospital Course (Home [...] in the next few days. Please call [phone] ) if you do not hear back by then to inquire about appointment. Please arrive 15 minutes early and bring photo ID, insurance card, and medication list. If unable to attend appointment, please call to cancel within 24 hours. Electronic Signatures: Colton Rich (Resident)) (Signed 01-Mar-2021 15:54) Authored: Discharge Orders, Hospital Course (Home Care/Gold Form), Gold Form - Upholstery Trimmer Summary Amber Arroyo (Resident)) (Signed 03-Mar-2021 12:15) Authored: Discharge Orders, Provider FINAL REVIEW of Orders, Appointments Last Updated: 03-Mar-2021 12:15 by Amber Arroyo (Resident)) Normal [facility] GLUCOSE-POCTon 03-01-2021 Glucose [Mass/Vol] 110 mg/dL High 74 - 99 [facility] Comment on above: Performed By: #### C BCDF #### [facility] [address] [place] [address] Glucose [Mass/Vol] 90 mg/dL Normal 74 - 99 [facility] Comment on above: Performed By: #### C RP #### [facility] [address] [place] [address] Glucose [Mass/Vol] 124 mg/dL High 74 - 99 [facility] Comment on above: Performed By: #### G KATELYN ####[id number] [place] [address] Laboratory - Chemistry and C hemistry - [...] am INDICATION: pneumothorax. COMPARISON: 02/28/2021 ACCESSION NUMBER(S): [id number] ORDERING CLINICIAN: BRANDON EISENBERG FINDINGS: AP radiograph [...] as stated. This study was interpreted at [facility], [place], [place]. Electronically signed by: CAMERON SALMERON MD [facility] Consult-Thoracic and Esophag eal Surgeryon 02-28-2021 Consult-Thoracic [...] Known Allergies: Objective: Objective Information: T PRBPSpO2 Value36.44568644/5499% Date/Time03/01 6: 6: 6: 6: 6:50 Range(35.7C [...] Eisenberg. Madhuri Nur MD PGY-2 Thoracic Surgery 17292 Consult Status: Consult Order ID: [id number] Attestation: Note Completion: I am a: Resident/Fellow [...] the note. I personally evaluated the patient [id number] Electronic Signatures: Madhuri Nur (Resident)) (Signed 01-Mar-2021 09:00) Authored: Service, History of Present Illness, Review Family/Social History and ROS, Allergies, Objective, Assessment/Recommendation s, Note Completion Brandon Eisenberg) (Signed 14-Mar-2021 16:38) Authored: Note Completion Co-Signer: History of Present Illness, Objective, Note Completion Last Updated: 14-Mar-2021 16:38 by Brandon Eisenberg) References: 1. Data Referenced From Consult-Thoracic and Esophageal Surgery 28-Feb-2021 18:32 Normal [facility] Consult-Thoracic and Esophageal Surgery Service: Service: Thoracic [...] Known Allergies: Objective: Objective Information: T PRBPSpO2 Value36.19949104/7698% Date/Time02/28 18: 18: 18: 18: 18: Range(35.7C [...] for a pneumothorax, and is admitted to [place] [address]. Thoracic surgery consulted to evaluate and for possible chest tube placement. Recs: -daily CXR -if pt develops a pneumothorax, will place a chest tube -D/W primary team, Dr Ruiz Pt seen and examined; I discussed the pt with Dr Eisenberg Consult Status: Consult Order ID: [id number] Send Provider Communication: Note Recipients: Jeferson Ruiz DO - [id number] [] Attestation: Note Completion: Provider/Team Pager #[phone] Electronic Signatures: Gerber Alas (TERE (PHYSICIAN)) (Signed 28-Feb-2021 19:10) Authored: Service, History of Present Illness, Review Family/Social History and ROS, Allergies, Objective, Assessment/Recommendation s, Provider Communication, Note Completion Last Updated: 28-Feb-2021 19:10 by Gerber Alas (TERE (PHYSICIAN)) Normal [facility] No Panel Informationon 02-28 [email or web address]?={[email or web address] [id number]} [facility] Work Phone: [facility] Work Phone: Order Reconciliationon 02-28 Order Reconciliation Page 1 Admission Reconciliation Document Reconciliation Type: Admission requested on behalf of Osiel Marie (Resident) done by Osiel Marie (Resident)) Admission - Reconciliation: 28-Feb-2021 18:50 by: Osiel Marie (Resident)) Home MedicationsEnteredLast Dose TakenReconciled with current Order Reconciliation Comment/ Additional Information albuterol 90 mcg/inh inhalation aerosol with adapter 2 puff(s) inhaled every 4 hours, As Mminmq85-Eam-0469 Albuterol 90 micrograms/ Inhalation MDI (PROVENTIL, VENTOLIN)DOSE = 2 inhalation Every 4 Hours via MDI, PRN Shortness of BreathNotes from Pharmacy: RCRAalbuterol 90 mcg/inh inhalation aerosol with adapter reconciled with the existing inpatient order Albuterol 90 micrograms/ Inhalation MDI Aspirin Low Dose 81 mg oral tablet, chewable 1 orally once a rtk19-Plq-3493 Aspirin Chewable Tablet, ChewableDOSE = 81 mg Oral DailyAspirin Low Dose 81 mg oral tablet, chewable reconciled with the existing inpatient order Aspirin Chewable Multiple Vitamins oral tablet 1 tab(s) orally once a egn84-Xur-6485 Multivitamin with Minerals TabletDOSE = 1 tablet(s) Oral DailyMultiple Vitamins oral tablet reconciled with the existing inpatient order Multivitamin with Minerals primidone 250 mg oral tablet 1 orally every 12 dwhyy63-Djf-5285 Primidone Tablet (MYSOLINE)DOSE = 250 mg Oral [...] inhalation powder 1 puff(s) inhaled once a rqi04-Ajn-3855 Tiotropium 18 micrograms/ Inhalation Capsule (SPIRIVA HANDIHALER)DOSE [...] oral capsule 1 cap(s) orally once a xxk71-Ryv-6715 Reviewed and Held Additional Current Orders Enoxaparin SubCutaneous (LOVENOX)DOSE = 40 mg SubCutaneous Every 24 Hours Melatonin TabletDOSE = 3 mg Oral At Bedtime, PRN Insomnia Normal [facility] Radiologyon 02-28-2021 XR Chest Single view Normal [facility] Work Phone: [phone] TH CHEST 1 VIEWon 02-28-2021 TH CHEST 1 VIEW Patient Name: BROCK COLEY STUDY: CHEST 1 VIEW; 02/28/2021 3:44 pm INDICATION: s/p LLL endobronchial valve placement x5. COMPARISON: None. ACCESSION NUMBER(S): [id number] ORDERING CLINICIAN: EMERSON LUIS FINDINGS: CARDIOMEDIASTINAL SILHOUETTE: [...] Electronically signed by: Ollie HAGER MD Normal [facility] V/Q QUANTon 02-28-2021 V/Q QUANT Patient Name: BROCK COLEY STUDY: V/Q QUANT; 02/28/2021 9:55 am INDICATION: Emphysema, respiratory failure. 65-year-old male with emphysema in setting alpha-1 antitrypsin deficiency and positive smoking history; pre-op evaluation. COMPARISON: CT chest dated 12/15/2020 ACCESSION NUMBER(S): [id number] ORDERING CLINICIAN: SALINAS RUIZ TECHNIQUE: DIVISION OF [...] as stated. This study was interpreted at [facility], [place], [place]. Consult (Pulmonary Medicine) Diagnoses/Problems Emphysema/COPD (492.8) (J43.9) Former smoker (V15.82) (Z87.891) Chronic respiratory failure with hypoxia (518.83,799.02) (J96.11) Uigry-1-fjjdctqgehm deficiency (273.4) (E88.01) Pre-op evaluation (V72.84) (Z01.818) Family history of chronic obstructive pulmonary disease (V17.6) (Z82.5) : Mother Family history of leukemia (V16.6) (Z80.6) : Father Family history of malignant neoplasm of stomach (V16.0) (Z80.0) : Paternal Uncle Orders Tobacco Use Screening; Status:Complete; Done: 51Mjp2021 Perform:Not Applicable;Ordered; For:SocHx: Former smoker; Ordered By:Salinas [...] proptosis. Hematologic/L (more content not included)... Normal [employer] Falls Risk Screeningon 12-15 Fall risk assessment a) No falls within the last year [facility] Work Phone: Falls Risk Screening b) No [facility] [facility] Work Phone: [phone] CT CHEST WO CONTRASTon CT CHEST WO CONTRAST Patient Name: BROCK COLEY STUDY: CT CHEST WO CONTRAST; 12/15/2020 2:15 pm INDICATION: SOB, COPD. COMPARISON: None. ACCESSION NUMBER(S): [id number] ORDERING CLINICIAN: SALINAS RUIZ TECHNIQUE: Helical data [...] as stated. This study was interpreted at [facility], [place], [place]. Electronically signed by: MANDY JIMENEZ MD Normal [facility] Blood Gas Art, with Sarah Baumann [place] 12-06-2020 a/A Ratio Art 60.30 % Normal >=0.80 [facility] Comment on above: Performed By: #### 4 [id number] #### [facility] [address] [place] [address] AaDO2 Art 38.4 mmHg High 5.0-15.0 [facility] Comment on above: Performed By: #### 4 [id number] #### [facility] [address] [place] [address] Allens Test Not Applicable Normal [facility] Comment on above: Performed By: #### 4 [id number] #### [facility] [address] [place] [address] Base Excess Arterial 1.0 mmol/L Low >=2.8 [facility] Comment on above: Performed By: #### 4 [id number] #### [facility] [address] [place] [address] cCa2+ Art 4.79 mg/dL Normal 4.40-5.30 [facility] Comment on above: Performed By: #### 4 [id number] #### [facility] [address] [place] [address] cCl- Art 106.0 mmol/L Normal 101.0-111.0 [facility] Comment on above: Performed By: #### 4 [id number] #### [facility] [address] [place] [address] cGlu Art 107.0 mg/dL Normal 55.0-199.0 [facility] Comment on above: Performed By: #### 4 [id number] #### [facility] [address] [place] [address] cK+ Art 4.3 mmol/L Normal 3.5-5.3 [facility] Comment on above: Performed By: #### 4 [id number] #### [facility] [address] [place] [address] cLac Art 1.0 mmol/L Low 5.0-14.0 [facility] Comment on above: Performed By: #### 4 [id number] #### [facility] [address] [place] [address] tripper+ Art 141.0 mmol/L Normal 135.0-145.0 [facility] Comment on above: Performed By: #### 4 [id number] #### [facility] [address] [place] [address] Drawn by dylon Invalid Interpretation Code [facility] Comment on above: Performed By: #### 4 [id number] #### [facility] [address] [place] [address] FCOHb Art 1.0 % Low 1.5-4.9 [facility] Comment on above: Result Comment: Refe rence range Nonsmoker <1.5% Smoker <5.0% Heavy Smoker <9.0% Performed By: #### 4 [id number] #### [facility] [address] [place] [address] FIO2 BG 21 Invalid Interpretation Code [facility] Comment on above: Performed By: #### 4 [id number] #### [facility] [address] [place] [address] FMetHb Art 0.6 % Normal 0.0-1.9 [facility] Comment on above: Performed By: #### 4 [id number] #### [facility] [address] [place] [address] FO2Hb Art 90.4 % Low 93.0-100.0 [facility] Comment on above: Performed By: #### 4 [id number] #### [facility] [address] [place] [address] HCO3 (Bld) [Moles/Vol] 25.1 mmol/L Normal 22.0-26.0 [facility] Comment on above: Performed By: #### 4 [id number] #### [facility] [address] [place] [address] Hemoglobin (Bld) [Mass/Vol] 14.2 g/dL Normal 12.0-17.0 [facility] Comment on above: Performed By: #### 4 [id number] #### [facility] [address] [place] [address] Oxygen saturation in Blood 91.8 % Low 95.0-100.0 [facility] Comment on above: Performed By: #### 4 [id number] #### [facility] [address] [place] [address] P CO2 Arterial 41.4 mmHg Normal 35.0-45.0 [facility] Comment on above: Performed By: #### 4 [id number] #### [facility] [address] [place] [address] P O2 Arterial 58.4 mmHg Low 80.0-100.0 [facility] Comment on above: Performed By: #### 4 [id number] #### [facility] [address] [place] [address] pH Arterial 7.405 Normal 7.350-7.450 [facility] Comment on above: Performed By: #### 4 [id number] #### [facility] [address] [place] [address] Sample Site R Brachial Normal [facility] Comment on above: Performed By: #### 4 [id number] #### [facility] [address] [place] [address] Sample Type Arterial Draw Normal [facility] Comment on above: Performed By: #### 4 [id number] #### [facility] [address] [place] [address] Physician Orderon 12-06-2020 Physician Order [id number]:12 7 Normal [facility] Vital Signs Date Time Vital Sign Value Performing Clinician Facility 05-04-2021 13:45-0400 Body height 170.1 cm Jeferson P Samsa Work Phone: [facility] Work Phone: 05-04-2021 13:45-0400 Body mass index (BMI) [Ratio] 39.23 kg/m2 Jeferson Ruiz Work Phone: [facility] Work Phone: 05-04-2021 13:45-0400 Body surface area Derived from formula 2.22 m2 Jeferson Ruiz Work Phone: DL[facility] Work Phone: 05-04-2021 13:45-0400 Body temperature 97.7 [degF] Jeferson Ruiz Work Phone: JP[facility] Work Phone: 05-04-2021 13:45-0400 Body weight 113.51 kg Jeferson Ruiz Work Phone: FU[facility] Work Phone: 05-04-2021 13:45-0400 Diastolic blood pressure 81 mm[Hg] Jeferson Ruiz Work Phone: [facility] Work Phone: 05-04-2021 13:45-0400 Heart rate 105 /min Jeferson Ruiz Work Phone: [facility] Work Phone: 05-04-2021 13:45-0400 Respiratory rate 16 /min Jeferson Ruiz Work Phone: W[facility] Work Phone: 05-04-2021 13:45-0400 SaO2% (BldA) [Mass fraction] 95 % Jeferson uRiz Work Phone: CA[facility] Work Phone: 05-04-2021 13:45-0400 Systolic blood pressure 153 mm[Hg] Jeferson P Samsa Work Phone: [facility] Work Phone: 05-04-2021 13:45-0400 0 1 Jeferson P Samsa Work Phone: [facility] Work Phone: Comment on above: [employer] 03-15-2021 06:50-0400 Body temperature 97.88 [degF] Jefersonnelda Hansa Other Phone: [facility] 03-15-2021 06:50-0400 Diastolic blood pressure 79 mm[Hg] Jeferson Samsa Other Phone: [facility] 03-15-2021 06:50-0400 Heart rate 98 /min Jefersonnelda Hansa Other Phone: [facility] 03-15-2021 06:50-0400 Respiratory rate 18 /min Jefersonnelda Hansa Other Phone: [facility] 03-15-2021 06:50-0400 SaO2% (BldA) [Mass fraction] 93 % Jeferson Samsa Other Phone: [facility] 03-15-2021 06:50-0400 Systolic blood pressure 151 mm[Hg] Jeferson Samsa Other Phone: [facility] 12-15-2020 14:25-0400 Body height 170.1 cm Jeferson P Samsa Work Phone: [facility] Work Phone: 12-15-2020 14:25-0400 Body mass index (BMI) [Ratio] 38.8 kg/m2 Jeferson P Samsa Work Phone: [facility] Work Phone: 12-15-2020 14:25-0400 Body surface area Derived from formula 2.21 m2 Jeferson P Samsa Work Phone: [facility] Work Phone: 12-15-2020 14:25-0400 Body temperature 97.88 [degF] Jeferson P Nvigen Work Phone: [facility] Work Phone: 12-15-2020 14:25-0400 Body weight 112.27 kg Jeferson P Nvigen Work Phone: [facility] Work Phone: 12-15-2020 14:25-0400 Diastolic blood pressure 82 mm[Hg] Jeferson Mckay Nvigen Work Phone: [facility] Work Phone: 12-15-2020 14:25-0400 Heart rate 96 /min Jeferson P Nvigen Work Phone: [facility] Work Phone: 12-15-2020 14:25-0400 Respiratory rate 17 /min Jeferson Mckay Nvigen Work Phone: [facility] Work Phone: 12-15-2020 14:25-0400 SaO2% (BldA) [Mass fraction] 97 % Jeferson Mckay Rayn Work Phone: [facility] Work Phone: 12-15-2020 14:25-0400 Systolic blood pressure 133 mm[Hg] Jeferson Mckay Nvigen Work Phone: [facility] Work Phone: 12-15-2020 14:25-0400 0 1 Jeferson P Nvigen Work Phone: [facility] Work Phone: Comment on above: [employer] 12-15-2020 14:24-0400 Body temperature 97.88 [degF] Jeferson P Samsa Work Phone: [facility] Work Phone: 12-15-2020 14:24-0400 Heart rate 91 /min Jeferson P Samsa Work Phone: [facility] Work Phone: 12-15-2020 14:24-0400 SaO2% (BldA) [Mass fraction] 94 % Jeferson P Samsa Work Phone: [facility] Work Phone: Encounters Encounter Date Encounter Type Care Provider Facility Start: 11-20-2023 End: 11-20-2023 ambulatory AN HOOPER [facility] Start: 10-12-2023 End: 10-12-2023 ambulatory TATIANA VACA [facility] Start: 12-06-2022 End: 01-03-2023 ambulatory JEFERSON SAMSA [...] encounter procedure Jeferson P Samsa Work Phone: ZM-Dxhzvrj-Hfhrvbv [facility] Work Phone: Start: 05-04-2021 PST, Provider: RALPH JENKINS [address]TH FLR PFT [address]ALKWAY,PULM, Status: Pen, Time: 10:45 AM Jeferson P Samsa Work Phone: [facility] Work Phone: Start: 05-04-2021 Patient encounter procedure Jeferson P Samsa Work Phone: [facility] Work Phone: Start: 05-04-2021 PFT, Provider: RALPH JENKINS 6TH FLR PFT RM1,PULM, Status: Pen, Time: 8:45 AM Jeferson P Samsa Work Phone: [facility] Work Phone: Start: 05-03-2021 AUDIT Jeferson P Samsa Work Phone: [facility] Work Phone: Start: 03-11-2021 End: 03-15-2021 Evaluation and management of inpatient Daryl Abelval [facility] [address] Start: 03-04-2021 AUDIT Jeferson P Samsa Work Phone: [facility] Work Phone: Start: 02-09-2021 AUDIT Jeferson Ruiz Work Phone: [facility] Work Phone: Start: 12-15-2020 Office consultation new/estab patient 80 min Jeferson Ruiz Work Phone: [facility] Work Phone: Patient encounter status Jeferson Ruiz Work Phone: [facility] Work Phone: Procedures Date Procedure Procedure Detail Performing Clinician Start: 12-15-2020 Follow-up visit Plan of Treatment Date Care Activity Detail Author Start: 03-18-2021 Patient encounter procedure [facility] Preadmit Start: 03-15-2021 End: 03-16-2022 Alpha 1-Proteinase Inhibitor (HUMAN) IV Piggy Back GLASSIA ; in IV (Total Volume) 50 mL (GLASSIA)DOSE = 1,000 mg Every 7 DaysRecommended Infusion Time: 15 minute(s)Clinician Notes: Weekly on last dose was 8/3, next dose 03/15Notes from Pharmacy: Administer at room temperature Start: 15-Mar-2021 End: 15-Mar-2022 Ordered: 11-Mar-2021 Max Champion Intent Comments: Weekly on last dose was 8/3, next dose 03/15 [facility] Comment on above: Weekly on l ast dose was 8/3, next dose 03/15 Start: 03-11-2021 End: 03-12-2022 Albuterol 2.5 mg/ 3 mL Nebulizer Soln ; (PROVENTIL)DOSE = 3 mL Inhalation Every 4 Hours via Nebulizer, PRN Shortness of BreathClinician Notes: home regimen Start: 11-Mar-2021 End: 11-Mar-2022 Ordered: 11-Mar-2021 Max Champion Intent Comments: home regimen [facility] Comment on above: home regimen Immunizations Immunization Date Immunization Notes Care Provider Renee harrell 11-16-2020 Pfizer-BioNTech COVI D-19 Vacc 30 MCG/0.3ML Intramuscular Suspension Jeferson [employer] Work Phone: [facility] Work Phone: 10-25-2020 Pfizer-BioNTech COVI D-19 Vacc 30 MCG/0.3ML Intramuscular Suspension [employer] Work Phone: [facility] [employer]x+1] Work Phone: 04-07-2020 pneumococcal conjuga te vaccine, 13 valent [employer] Work Phone: [facility] [employer]x+1] Work Phone: Payers Date Payer Category Payer Unknown 1960 Medicare [id number] 1959 Private Health Insurance [facility] [id number] 1954 Unknown [id number] 2.16.84 [id number] 1954 Unknown [id number] 2.16.84 [id number] 1954 Unknown [id number] 2.16.84 [id number] 1954 Unknown [id number] 2.16.84 0.1.000518.3.579.2.593 1954 Unknown [id number] 2.16.84 [id number] 1954 Unknown [id number] 2.16.84 [id number] 1954 Unknown [id number] 2.16.84 [id number] 1954 Unknown [id number] 2.16.84 [id number] 1954 Unknown [id number] 2.16.84 0.1.242973.3.579.2.593 1954 Unknown [id number] 2.16.84 [id number] 1954 Unknown [id number] 2.16.84 0.1.081778.3.579.2.593 1954 Unknown [id number] 2.16.84 0.1.249669.3.579.2.593 1954 Unknown [id number] 2.16.84 [id number] Social History Date Type Detail Facility Former smoker Former smoker [facility][x+1] Work Phone: Tobacco smoking consumption unknown [facility] Functional Status Date Assessment Result Facility Functional observable [facility] Mental Status Date Assessment Result Facility 03-11-2021 Cognitive functions 11-Mar-20 2120:20 [facility] Clinical Notes 12-15-2020 to 11-20-2023 <item><item><item><item> Note Date & Type Note Facility 11-20-2023 Note MD Electrophysiology Consult Note Reason for visit: Tachycardia HPI: Brock Coley is a 68 y.o. year old with past medical history of alpha antitrypsin deficiency, COPD, emphysema, history of cholecystectomy who sees Dr. Kwan for COPD was recently seen in the [facility] and noted to be in tachycardia. He states that he has had few occasions of this and lower the time he has been treated with metoprolol IV which improved his symptoms he takes Prolastin infusion for his advanced antitrypsin deficiency he states that he notes his heart rate runs anywhere from 130 to 150 bpm. He was seen by Melissa Vaca in and an event monitor was ordered. Lab work in terms of TSH and electrolytes were normal. he is unaware of these episodes of tachycardia. echocardiogram revealed normal EF with a mild left atrial enlargement 30-day event monitor placed from 10/12/2023 to 11/11/2023 was personally reviewed by me that shows episodes of possible SVT that appears to be consistent with likely atrial tachycardia. events were noted on 10/13/2023 at 9:22 PM as well as 10/12/2023 at 6:08 PM and again repeated episodes were noted on 10/21/2023 at 8:57 PM. these episodes of as long as 2 to 3 minutes there was 1 episode that was noted on 10/12/2023 at 5:13 PM which appeared to be more or less like atrial fibrillation. no episodes of VT but PVC and couplet was noted on 11/10/2023 PMH: No past medical history on file. PSH: Past Surgical History: Procedure Laterality Date CHOLECYSTECTOMY 2009 PULMONARY VALVE REPLACEMENT SKIN CANCER EXCISION SH: Social Determinants of Health Tobacco Use: Medium Risk (10/12/2023) Patient History Smoking Tobacco Use: Former Smokeless Tobacco Use: Never Passive Exposure: Not on file Alcohol Use: Not on file Financial Resource Strain: Not on file Food Insecurity: Not on file Transportation Needs: Not on file Physical Activity: Not on file Stress: Not on file Social Connections: Not on file Intimate Partner Violence: Unknown (09/27/2023) [place] [employer] [place] Fear of Current or Ex-Partner: Not on file Emotionally Abused: Not on file Physically Abused: Not on file Sexually Abused: Not on file Physically or Sexually Abused: Not on file Depression: Not on file Housing Stability: Not on file Utilities: Not on file Allergies: No Known Allergies Weight: 109kg Visit Vitals BP 142/73 (BP Location: Right arm, Patient Position: Sitting) Pulse 59 Ht 1.702 m (5' 7 ) Wt 109 kg (240 lb) SpO2 97% Comment: on 4L O2 BMI 37.59 kg/m??? Smoking Status Former BSA 2.27 m??? Meds: Current Outpatient Medications on File Prior to Visit Medication Sig Dispense Refill albuterol 90 mcg/actuation inhaler INHALE 2 PUFFS BY MOUTH EVERY 4 HOURS NEEDED SHORTNESS OF BREATH Inhalation for 50 Days alpha1-proteinase inhibitor (Prolastin-C) infusion as directed Intravenous apixaban (Eliquis) 5 mg tablet Take 1 tablet (5 mg) by mouth in the morning and at bedtime. 60 tablet 11 aspirin 81 mg EC tablet Take 81 mg by mouth in the morning. gyfakahaorc-syagtxqxl-gbobszxa (Trelegy Ellipta) 100-62.5-25 mcg blister with device Inhalation for 30 Days metoprolol tartrate (Lopressor) 50 mg tablet Take 1 tablet (50 mg) by mouth in the morning and at bedtime. 180 tablet 3 primidone (Mysoline) 250 mg tablet every 12 (twelve) hours. primidone (Mysoline) 50 mg tablet 1 (one) time each day at the same time. topiramate (Topamax) 25 mg tablet Take 25 mg by mouth in the morning and at bedtime. vitamin E, dl,tocopheryl acet, (vitamin E, dl, acetate,) 180 mg (400 unit) capsule Take 400 Units by mouth in the morning. metoprolol tartrate (Lopressor) 25 mg tablet Take 1 tablet (25 mg) by mouth in the morning and at bedtime. (Patient not taking: Reported on 11/20/2023) 60 tablet 11 No current facility-administered medications on file prior to visit. ROS: Cardio Basic Cardiovascular Symptoms: no lightheadedness, no leg edema, no syncope, no orthopnea, no PND, no claudication, Constitutional Constitutional: no fever, no night sweats, no significant weight gain, no significant weight loss, no exercise intolerance Eyes Eyes: no dry eyes, no irritation, no vision change ENMT Ears: no difficulty hearing, no ear pain Nose: no frequent nosebleeds, Mouth/Throat: no sore throat, no bleeding gums, no snoring, no dry mouth, no mouth ulcers, no oral abnormalities, no teeth problems Respiratory Respiratory: no cough, no wheezing, no coughing up blood, no sleep apnea Musculoskeletal Musculoskeletal: no muscle aches, no muscle weakness, joint pain+, no back pain, no swelling in the extremities Integumentary Skin no rash, no ulcer, no varicosities, no discoloration, no pruritus Neurologic Neurologic: no loss of consciousness, no weakness, no numbness, no seizures, no dizziness, no headaches Psychiatric Psych: no depression, feeling safe in relationship, no alcohol abuse, Hematologic/Ly (more content not included)... [facility] 10-15-2023 Note Event monitor report received for [...] bid for better heart rate control Tatiana Vaca [facility] Cardiology Available 7a-5pm via [employer] Chat Pager [phone] [facility] 10-12-2023 Note Hypertension is unco ntrolled in office 146/84 and was also elevated in ED visit- 155/69 [facility] 10-12-2023 Note [id number]- HTN and age No contra indications for [...] a flutter RTC after testing with Dr Hooper- EP evaluation and further management [facility] 10-12-2023 Note [facility] CARDIOLOGY PROGR ESS NOTE HPI: Brock Coley is a 68 y.o. male here as new pt for tachycardia New patient here to establish care. He is following up from [facility] ED for tachycardia s/p infusion- prolastin every Sun since 06/2020. Heart rates were 130-150 bpm and IVF was given and fast heart rate resolved. He sees Dr. Ruiz for pulmonary. He was also seen in [facility] ED in February 2023 for tachycardia as well. Denies chest pain, palpitations, and lightheadedness/syncope. States he has fast heart February 07, 2023 and was evaluated in ED and was given metoprolol IV and resolved. New patient here to establish care. He is following up from [facility] ED for tachycardia s/p infusion. He sees Dr. Ruiz for pulmonary. He was also seen in [facility] ED in February 2023 for tachycardia as well. Denies chest pain, palpitations, and lightheadedness/syncope. Review of Systems Cardiovascular: Positive for dyspnea on exertion. Respiratory: Positive for shortness of breath. All other systems reviewed and are negative. [facility] ED report 2/28/24 Pt was admitted for arrhythmia/palpitations. He was [...] 81 mg by mouth in the morning. uftygwrgabe-lgnhtxlin-evnnizkt (Trelegy Ellipta) 100-62.5-25 mcg blister with device [...] (CMS/HCC) Event monitor Paroxysmal atrial flutter (CMS/HCC) [id number]- HTN and age No contra indications for [...] RTC after testin (more content not included)... [facility] 10-12-2023 Note New patient here to establish care. He is following up from [facility] ED for tachycardia s/p infusion. He sees Dr. Ruiz for pulmonary. He was also seen in [facility] ED in February 2023 for tachycardia as well. Denies chest pain, palpitations, and lightheadedness/syncope. Review of Systems Cardiovascular: Positive for dyspnea on exertion. Respiratory: Positive for shortness of breath. All other systems reviewed and are negative. [facility] 10-12-2023 Note Event monitor [facility] 05-04-2021 History of Present illness Narrative [...] family history of lung diseases or cancer [facility] Work Phone: 05-04-2021 History of Present illness [...] Daryl Kearns MD Samsa, Nathan P, - [phone] [] Miriam Marks MD Young, Benjamin, MD Discharge: Summary: Admission Date: .11-Mar-2021 14:26:00 Discharge Date: 15-Mar-2021 Attending Physician at Discharge: Daryl Kearns Admission Reason: Pneumonia Final Discharge Diagnoses: Pneumonia Procedures: none Condition at Discharge: Satisfactory Disposition at Discharge: .Home Vital Signs: T PRBPSpO2 [id number]/7993% Date/Time03/15 4:508/10 4:508/10 4:508/10 4:508/10 4:50 Range(36.6C - 37C ) (92 - 98 ) (18 - 18 ) (122 - 151 )/ (74 - 79 ) (93% - 95% ) As of 15-Mar-2021 08:19:00, patient is on 4 L/min of oxygen via nasal cannula. Highest temp of 37 C was recorded at 8 22:14 Date: Weight/Scale Type:Height: 11-Mar-2021 17:17054.3 kg / ggt238.1 cm Hospital Course: Mr. Brock Coley is a 66 year old Male with qyvla-0-itjxyqsbzl deficiency (on weekly Prolastin-C, 1000mg IV every [...] Care Physician Scheduled Date/Time: 06-Apr-2021 09:00 Location: [address] [place] [address] Follow-Up Appointment 02: Physician/Dept/Service: Local Sash Repairer Reason for Referral: COPD Call to Schedule in: 1 week Location: [facility] Discharge Medications: Home Medication Prolastin-C intravenous [...] will follow up with PCP and local procedures rn to document resolution of pneumonia with CXR [...] the note. I personally evaluated the patient [id number] Comments/ Additional Findings Greater than 30 minutes was spent planning and arranging for discharge Electronic Signatures: Franki Palacios (Resident)) (Signed 15-Mar-2021 17:30) Authored: Send Summary, Note Completion Daryl Kearns) (Signed 29-Mar-2021 12:40) Authored: Ongoing Care, Note Completion Co-Signer: Send Summary (more content not included)... [facility] 03-15-2021 Hospital Discharge instructions Oxygen:Administer oxygen at 4 via to maintain SpO2 % of.Follow Up Appointment 1:Physician/Dept/Service: Dr. Viraj Maloney Primary Care PhysicianScheduled Date/Time: 06-Apr-2021 09:00Location: [address] [address]Phone Number: [phone]: Please arrive 10-15 minutes early, bring photo ID, insurance cards, discharge summary, and a list of current medications. Please call the office if you need to change this appointment.Follow Up Appointment 2:Physician/Dept/Service: Local PulmonologistReason for Referral: COPDLocation: Erika TOMLIN [facility] 03-11-2021 Note History of Present I llness: HPI: Mr. Brock Coley is a 66 year old Male with tptfi-7-fsyletmpmw deficiency (on weekly Prolastin-C, 1000mg IV every [...] Easy Bleeding Objective: Objective Information: T PRBPSpO2 [id number]/7494% Date/Time03/11 15:128 15:128 15:128 15:128 15:12 Range(36.3C - 36.3C ) [...] Lab Results: Results: (more content not included)... [facility] 03-03-2021 Note Send Summary: Discharge Summary Providers: Provider RoleProvider Name Jeferson Camilo ConsultingPulmonary Consult Brandon Dominique Nurse PractitionerGurinder Guy Nathan P AttendingGifford, Alex Note Recipients: Jeferson Ruiz, - [id number] [] Brandon Eisenberg MD Young, Benjamin MD Discharge: Summary: Admission Date: .28-Feb-2021 17:00:00 Discharge Date: 03-Mar-2021 Attending Physician at Discharge: Thang Lorenzo Admission Reason: endobronchial valve placement(1) Final Discharge Diagnoses: endobronchial valve placement Procedures: Bronchoscopy Condition at Discharge: Satisfactory Disposition at Discharge: .Home Vital Signs: T PRBPSpO2 Value36.94848641/8093% Date/Time03/03 5: 5: 5: 5: 5:00 Range(36.1C - 37.5C ) (76 - 95 ) (16 - 18 ) (124 - 142 )/ (77 - 84 ) (93% - 96% ) As of 03-Mar-2021 05:00:00, patient is on 4 L/min of oxygen via nasal cannula. Highest temp of 37.5 C was recorded at 03/02 21:43 Date: Weight/Scale Type:Height: 03-Mar-2021 05:03792 kg / standing Physical Exam: Constitutional: Well [...] the note. I personally evaluated the patient [id number] Comments/ Additional Findings Uneventful course following placement [...] From Consult-Thoracic and Esophageal Surgery 28-Feb-2021 18:32 [facility] 02-28-2021 Note History of Present I llness: [...] valves, RVSP ~17 mmHg SURGICAL HX: Cholecystectomy 2009 at [facility] FAMILY HX: Multiple members- COPD, leukemia, gastric [...] Mass, Pain Objective: Objective Information: T PRBPSpO2 Value36.91190236/7698% Date/Time02/28 18: 18: 18: 18: 18: Range(35.7C [...] HDS on h (more content not included)... [facility] 12-15-2020 History of Present illness Narrative December [...] [place], normal valves, RVSP17 mmHgFamily History:+COPD+Leukemia+gastric cancer [place] Work Phone: Chief complaint Narrative - Reported BROCK COLEY is here for an outpatient consultation.Reason for Visit: Emphysema, BLVR evaluation.Appointment requested by: Dr. Ruiz. [employer] Phone: Evaluation note Skin: Warm and dry, [...] awake/alert/oriented x3, no distress, alert and cooperative [facility] Summary Purpose Family History No Family History [...] section and content) DATE CREATED AUTHOR 12/07/2020 [facility] DATE CREATED AUTHOR AUTHOR'S ORGANIZ ATION 05/20/2021 [employer] DATE CREATED AUTHOR AUTHOR'S ORGANIZ ATION 11/04/2021 [facility] DATE CREATED AUTHOR AUTHOR'S ORGANIZ ATION 01/12/2023 [facility] DATE CREATED AUTHOR AUTHOR'S ORGANIZ ATION 11/28/2023 [facility] <item> Privacy Markings (unrecogniz ed section [...] BE BASED ON THE PRIMARY CLINICAL RECORDS. [facility], [facility]. provides no warranty or guarantee of the accuracy or completeness of information in this document.
== END 2023-12-04 10:03 | disposition home or self-care (01) ==
LOC: CT 10:02
PROVIDERS: PCP Nurse Practitioner Family; Visit Provider Internal Medicine
DX: R91.8 Other nonspecific abnormal finding of lung field (principal)
CPT/HCPCS: 71250

== ENCOUNTER 2023-12-05 08:27 | Outpatient (OUT) | payer MEDICARE, SELFPAY ==
--- NOTE | 2023-12-05 08:00 | NM_ITS ---
Patient Name: STACEY COLEY MR#: [id number] : 1955 Exam Date: 12/05/2023 Ordering Doctor: [facility] REPORT PROCEDURE: NM SOMMER PERF SPECT REST STR COMPARISON: None. INDICATIONS: ABNORMAL EKG, SUPERVENTRICULAR TACHYCARDIA TECHNIQUE: Exam Description: Stress/Rest one day protocol gated SPECT Rest Imagin.9 mCi Tc-99m Cardiolite IV on 12/05/2023 Stress Imaging 30.0 mCi Tc-99m Cardiolite IV on 12/05/2023 Exercise Protocol: 0.4 mg Lexiscan given IV Heart Rate (bpm): Rest: 67 Max: 84 PMHR: 55 Blood Pressure: Rest: 162/82 Max: 162/82 Symptoms: Rest and peak stress ECG findings were normal and the exercise portion of the study was normal per attending physician Dr. Suarez . For more details please see separate cardiac stress test report. FINDINGS: QUALITY OF STUDY: Good. PERFUSION DEFECT: LOCATION: Basal anterior. Basal inferoseptal. Basal inferior. Mid-anterior. Mid-inferior. SIZE: Large (5 or more segments). SEVERITY: Moderate. TYPE: Mixed. WALL MOTION: Normal. LV SIZE: Normal. 93 mL. TID / TCD: None; 0.9 LVEF: Normal. Calculated EF 66%. SUMMARY: Myocardial perfusion imaging study has ABNORMAL findings. CONCLUSION: 1. Small area of mildly decreased uptake in the anterior wall, LAD distribution, with suspected partial reversible ischemia 2. Moderate sized area moderately decreased uptake in the inferior RCA distribution, with suspected partial reversible ischemia 3. Normal exercise test Dictated by: Bruce Levi MD on 12/06/2023 at 11:58 Approved by: Bruce Levi MD on 12/06/2023 at 12:08
[2023-12-05] MEDS: REGADENOSON 0.4 MG/5 ML SYRINGE 0.400000000000000022 MG IV (09:56)
== END 2023-12-05 08:28 | disposition home or self-care (01) ==
LOC: NM 08:29
PROVIDERS: PCP Nurse Practitioner Family; Visit Provider Internal Medicine Cardiovascular Disease
DX: I47.10 Supraventricular tachycardia, unspecified (principal); R94.31 Abnormal electrocardiogram [ECG] [EKG]
CPT/HCPCS: 78452; 93017; A9500; J2785

== ENCOUNTER 2024-01-02 07:35 | Outpatient (RCR) | payer MEDICARE, SELFPAY ==
[2023-12-05 11:13] VITALS: BP 151/84; PULSE 65; TEMP 36.2; O2SAT 96
[2023-12-05] MEDS: PROTEINASE INHIBITOR IV (11:17)
[2023-12-05] MEDS: ALPHA IV (11:17)
--- NOTE | 2023-12-05 11:27 | PC.NURSE ---
1113: Pt. to [facility] amb. for weekly infusion. Pt. had cardiac stress test this a.m. and has existing IV to right ac. Flushes easily with no s&s of infiltration. IV Prolastin initiated at this time. VSS. Pt denies needs or c/o.
--- NOTE | 2023-12-05 11:46 | PC.NURSE ---
1144: Prolastin infusion completed without adverse reaction. IV d/c'd pressure to site. 1146: Pt. d/c'd amb. to home.
[2023-12-12 13:08] VITALS: BP 116/70; PULSE 64; TEMP 37; O2SAT 92
[2023-12-12] MEDS: ALPHA IV (13:12)
[2023-12-12] MEDS: PROTEINASE INHIBITOR IV (13:12)
[2023-12-19 13:00] VITALS: BP 144/56; PULSE 56; TEMP 36.9; O2SAT 96
[2023-12-19] MEDS: ALPHA IV (13:21)
[2023-12-19] MEDS: PROTEINASE INHIBITOR IV (13:21)
--- NOTE | 2023-12-19 13:31 | PC.NURSE ---
1300 ARRIVAL AMBULATORY TO CHAIR 3. ALERT ORIENTED OXYGEN AT 4 LPM NC. PLACED ON WALL O2. 1305 #24 IV INITIATED RT FOREARM, TOLERATED WELL.
--- NOTE | 2023-12-19 14:45 | PC.NURSE ---
1355 INFUSION COMPLETED. FLUSHED LINE WITH NORMAL SALINE. DC'D IV CATHETER, CATHETER INTACT SITE CLEAR. TOLERATED WELL. RELEASED AMBULATORY
[2023-12-26 13:03] VITALS: BP 149/76; PULSE 62; TEMP 36.7; O2SAT 95
[2023-12-26] MEDS: ALPHA IV (13:09)
[2023-12-26] MEDS: PROTEINASE INHIBITOR IV (13:09)
--- NOTE | 2023-12-26 13:17 | PC.NURSE ---
SPO2 88 on arrival, increased to 95 after resting, placed on wall oxygen 3 lpm, portable concentrator off.
[2024-01-02 12:52] VITALS: BP 131/60; PULSE 63; TEMP 36.8; O2SAT 95
--- NOTE | 2024-01-02 13:12 | PC.NURSE ---
1252: Pt. to [facility] amb. with portable O2 intact at 3L n.c. Called in with current weight earlier, pharmacy notified. Seated in recliner. VSS. IV initiated to right forearm, see documentation. Pt. denies needs.
[2024-01-02] MEDS: PROTEINASE INHIBITOR IV (13:16)
[2024-01-02] MEDS: ALPHA IV (13:16)
--- NOTE | 2024-01-02 14:19 | PC.NURSE ---
1316: IV Prolastin initiated at this time. Pt. given water. 1346: Prolastin completed without s&s of adverse reaction. IV d/c'd, pressure to site. 1348: Pt. d/c'd amb. to home. Portable O2 in place.
== END 2024-01-02 13:48 | disposition home or self-care (01) ==
LOC: INF 07:35
PROVIDERS: PCP Nurse Practitioner Family; Visit Provider Internal Medicine
DX: I47.10 Supraventricular tachycardia, unspecified (principal); R94.31 Abnormal electrocardiogram [ECG] [EKG]; E88.01 Alpha-1-antitrypsin deficiency; J43.2 Centrilobular emphysema
CPT/HCPCS: 78452; 93017; 96365; A9500; J0256; J2785

== ENCOUNTER 2024-01-30 07:35 | Outpatient (RCR) | payer MEDICARE, SELFPAY ==
[2024-01-09 13:03] VITALS: BP 132/84; PULSE 57; TEMP 36.8; O2SAT 94
[2024-01-09] MEDS: PROTEINASE INHIBITOR IV (13:07)
[2024-01-09] MEDS: ALPHA IV (13:07)
--- NOTE | 2024-01-09 13:09 | PC.NURSE ---
1300 Arrival ambulatory to chair 3. oxygen at 4 lpm nc, switched to hospital wall oxygen. Alert and oriented. 1305 #24 IV initiated rt forearm see documentation, tolerated well 1310 infusion initated
--- NOTE | 2024-01-09 13:45 | PC.NURSE ---
1340: IV Prolastin completed at this time. Pt. without s&s of adverse reaction. IV d/c'd, pressure to site. Pt. d/c'd amb. to home.
[2024-01-16 13:01] VITALS: BP 150/65; PULSE 66; TEMP 36.9; O2SAT 92
--- NOTE | 2024-01-16 13:06 | PC.NURSE ---
1300 Arrival ambulatory, oxygen at 3 lpm per nasal cannula, switched over to wall oxygen at 3 lpm. IV initiated per Reanna RN see documentation.
[2024-01-16] MEDS: ALPHA IV (13:09)
[2024-01-16] MEDS: PROTEINASE INHIBITOR IV (13:09)
[2024-01-23 13:12] VITALS: BP 135/81; PULSE 68; TEMP 36.7; O2SAT 96
--- NOTE | 2024-01-23 13:16 | PC.NURSE ---
1250 Arrival ambulatory to chair 3. switched from patient portable oxygen to wall oxygen at 4 lpm nc. Alert oriented offers no complaints. IV initiated rt forearm with #24 angiocath, patient tolerated well.
[2024-01-23] MEDS: PROTEINASE INHIBITOR IV (13:26)
[2024-01-23] MEDS: ALPHA IV (13:26)
[2024-01-30] MEDS: PROTEINASE INHIBITOR IV (13:16)
[2024-01-30] MEDS: ALPHA IV (13:16)
[2024-01-30 13:36] VITALS: BP 136/76; PULSE 64; TEMP 36.8; O2SAT 96
== END 2024-02-03 23:59 | disposition home or self-care (01) ==
LOC: INF 07:35
PROVIDERS: PCP Nurse Practitioner Family; Visit Provider Internal Medicine
DX: E88.01 Alpha-1-antitrypsin deficiency (principal); J43.2 Centrilobular emphysema
CPT/HCPCS: 96360; 96365; J0256

== ENCOUNTER 2024-03-05 07:19 | Outpatient (RCR) | payer MEDICARE, SELFPAY ==
[2024-02-06 12:57] VITALS: BP 130/85; PULSE 70; TEMP 36.8; O2SAT 95
[2024-02-06] MEDS: PROTEINASE INHIBITOR IV (13:30)
[2024-02-06] MEDS: ALPHA IV (13:30)
[2024-02-13 12:55] VITALS: BP 156/79; PULSE 73; TEMP 36.8; O2SAT 94
--- NOTE | 2024-02-13 13:08 | PC.NURSE ---
1255: Pt. to [facility] amb. for weekly infusion. Weight obtained. Seated in recliner. VSS. IV initiated to right arm, see documentation. Pt. tolerated with minimal c/o. O2 intact at 4L n/c. Pt. denies needs or c/o.
[2024-02-13] MEDS: PROTEINASE INHIBITOR IV (13:16)
[2024-02-13] MEDS: ALPHA IV (13:16)
--- NOTE | 2024-02-13 13:30 | PC.NURSE ---
1316: IV Prolastin initiated at this time. Pt. declines snack or beverage.
--- NOTE | 2024-02-13 13:50 | PC.NURSE ---
1349: IV Prolastin completed without s&s of adverse reaction. IV d/c'd, pressure to site. Pt. d/c'd amb. to home.
[2024-02-20] MEDS: ALPHA IV (13:43)
[2024-02-20] MEDS: PROTEINASE INHIBITOR IV (13:43)
[2024-02-20 13:45] VITALS: BP 142/75; PULSE 70; TEMP 36.2; O2SAT 96
[2024-02-27 12:59] VITALS: BP 156/80; PULSE 68; TEMP 36.7; O2SAT 94
[2024-02-27] MEDS: ALPHA IV (13:34)
[2024-02-27] MEDS: PROTEINASE INHIBITOR IV (13:34)
[2024-03-05 13:09] VITALS: BP 150/73; PULSE 58; TEMP 36.7; O2SAT 97
[2024-03-05] MEDS: PROTEINASE INHIBITOR IV (13:27)
[2024-03-05] MEDS: ALPHA IV (13:27)
== END 2024-03-05 23:59 | disposition home or self-care (01) ==
LOC: INF 07:19
PROVIDERS: PCP Nurse Practitioner Family; Visit Provider Internal Medicine
DX: E88.01 Alpha-1-antitrypsin deficiency (principal); J43.2 Centrilobular emphysema
CPT/HCPCS: 96365; J0256

== ENCOUNTER 2024-03-26 12:21 | Outpatient (OUT) | payer MEDICARE, SELFPAY ==
--- OUTSIDE RECORDS SUMMARY | 2024-03-26 12:38 | XMS_ITS | CCD ---
Author Organization [facility] Care Team Providers Care Winding Inspector And Tester Name Role Phone Samsa, Jeferson P Unavailable [...] Attending Unavailable SAMSA ., JEFERSON Admitting Unavailable AMARA, DR RUDOLPH Primary Care Unavailable SAMSA ., JEFERSON Consulting Unavailable SAMSA ., JEFERSON Attending Unavailable SAMSA ., JEFERSON Admitting Unavailable AMARA, DR RUDOLPH Primary Care Unavailable SAMSA ., JEFERSON Attending Unavailable SAMSA ., JEFERSON Admitting Unavailable SAMSA ., JEFERSON Consulting Unavailable AMARA, DR RUDOLPH Primary Care Unavailable SAMSA ., JEFERSON Admitting Unavailable SAMSA ., JEFERSON Attending Unavailable SAMSA ., JEFERSON Consulting Unavailable AMARA, DR RUDOLPH Primary Care Unavailable AMARA, DR RUDOLPH Primary Care Unavailable LOWE, JOSE LUIS Admitting Unavailable LOWE, JOSE LUIS Consulting Unavailable LOWE, JOSE LUIS Attending Unavailable SAMSA ., JEFERSON Attending Unavailable AMARA, DR RUDOLPH Primary Care Unavailable [...] Care Unavailable SAMSA ., JEFERSON Admitting Unavailable RUCHI, JOSE LUIS Attending Unavailable RUCHI, JOSE LUIS Attending Unavailable TATIANA VACA Attending Unavailable ANÍBAL HOOPER Attending Unavailable ANÍBAL HOOPER Admitting Unavailable SANDIE, ANÍBAL Attending Unavailable NOREEN CEBALLOS Referring Unavailable SANDIE, ANÍBAL Attending Unavailable Medications Current Medications Medication Drug [...] Ordered: 28-Feb-2021 Osiel Marie Generic Substitution Allowed Completed/Discontinued Medications Medication Drug Class(es) Dates Sig (Normalized) Sig (Original) [id number] 60 actuat albuterol 0.09 mg/actuat metered dose [...] Needed Quantity: 0 Refills: 0 Ordered: 28-Feb-2021 Osiel Marie Generic Substitution Allowed alpha 1-proteinase inhibitor, human [...] Problem Date Documented Date Episodic/Chronic Cardiac dysrhythmias (6 sources) Paroxysmal atrial fibrillation; Translations: [Sick sinus syndrome] Onset: 10-12-2023 Chronic Cardiac dysrhythmias (2 sources) Palpitations; Translations: [Palpitations] Onset: 01-29-2024 Episodic Chronic obstructive pulmonary disease and bronchiectasis (10 sources) Pulmonary emphysema; Translations: [Other emphysema] Onset: 05-06-2022 Chronic Other hereditary and degenerative nervous system conditions (4 sources) Essential tremor; Translations: [ESSENTIAL TREMOR] Onset: 10-02-2022 Chronic Other lower respiratory disease (8 sources) Dyspnea; Translations: [Shortness of breath] Episodic Other nutritional; endocrine; and metabolic disorders (9 sources) Qaqfi-4-cbpfvgdjskq deficiency; Translations: [Rysby-1-eotdakvawcp deficiency] Onset: 12-06-2022 Chronic Other nutritional; endocrine; and metabolic disorders (4 sources) Kcefw-7-gwqezcwkfng deficiency; Translations: [SYVSN-3-CMYNJKNTVPH DEFICIENCY] Onset: 05-06-2022 Chronic Other screening for suspected conditions (not mental disorders or infectious disease) (2 sources) Abnormal result of other cardiovascular function study; Translations: [Abnormal result of other cardiovascular function study] Onset: 03-18-2024 Episodic Pneumonia (except that caused by tuberculosis [...] Problem Classification Problem Date Documented Date Episodic/Chronic Other lower respiratory disease (2 sources) Other forms of dyspnea; Translations: [Other forms of dyspnea] Onset: 10-12-2023 Episodic Screening and history of mental health and substance abuse codes (4 sources) Personal history of nicotine dependence; Translations: [PERSONAL HISTORY OF NICOTINE DEPEND] Onset: 05-03-2022 Episodic Unclassified (1 source) Other supraventricular tachycardia; Translations: [Other supraventricular tachycardia] Onset: 11-20-2023 Unclassified (1 source) Supraventricular tachycardia, unspecified; Translations: [Supraventricular tachycardia, unspecified] Onset: 10-12-2023 Results Test Name Value Interpretation Reference Range Facility Orders Onlyon 03-21-2024 Orders Only [id number] Christina Coley 1955 M Date Provider Department [place] 03/21/2024 [id number] CATIA HVC [facility] Family History Problem Relation Age of Onset No Known Problems Mother No Known Problems Father Family Status - Relation Status Age at Mother Father Normal [facility] Office Visiton 03-18-2024 Follow-up visit [id number] Christina Coley 1955 M Date Provider Department Center 03/18/2024 Carola-ANÍBAL HOOPER [facility] Family History Problem Relation Age of Onset No Known Problems Mother No Known Problems Father Family Status - Relation Status Age at Mother Father Level of Service:[id number] MD OFFICE/OUTPATIENT ESTABLISHED LOW MDM 20 MIN Normal [facility] Orders Onlyon 03-18-2024 Orders Only [id number] Christina Coley 1955 M Provider Department Center 03/18/2024 TENISHA PHILIPPE [facility] Family History Problem Relation Age of Onset No Known Problems Mother No Known Problems Father Family Status - Relation Status Age at Mother Father Normal [facility] 36on 03-03-2024 36 Patient called ryan gill that no appt. With Infectious Disease is needed. Normal [facility] Telephoneon 02-29-2024 Telephone [id number] Christina Coley 1955 Provider Department Center 02/29/2024 BRAD MIRELES [facility]F [facility] Family History Problem Relation Age of Onset No Known Problems Mother No Known Problems Father Family Status - Relation Status Age at Mother Father Reason for Visit and Comments: Appointment [375] [facility] 36on 01-08-2024 36 Neuro PA inquired ab out having pt on eliquis with primidone and concerns of drug interaction. Provider called [facility] and d/w provider there and in light similar drug interaction with both eliquis and warfarin of decreased efficacy and xarelto as a Avoid use- that provider states they will stop primidone and use topamax for pt's tremors instead. Tatiana Vaca [facility] Cardiology Available 7a-5pm via [employer] Chat Pager [phone] [facility] HPon 12-10-2023 [facility] Electrophysiology Consult Note Reason for visit: Tachycardia HPI: Brock Coley is a 68 y.o. year old with past medical history of alpha antitrypsin deficiency, COPD, emphysema, history of cholecystectomy who sees Dr. Kwan for COPD was recently seen in the [place] ED and noted to be in tachycardia. [...] Past Surgical History: Procedure Laterality Date CHOLECYSTECTOMY 2010 PULMONARY VALVE REPLACEMENT SKIN CANCER EXCISION SH: [...] on file Intimate Partner Violence: Unknown (09/27/2023) [place] Safety & Environment Fear of Current or Ex-Partner: Not on file Emotionally Abused: Not on file Physically Abused: Not on file Sexually Abused: Not on file Physically or Sexually Abused: Not on file Depression: Not on file Housing Stability: Not on file Utilities: Not on file Allergies: No Known Allergies Weight: 109kg Visit Vitals Smoking Status Former Meds: No current facility-administered medications on file prior to encounter. Current Outpatient Medications on File Prior to Encounter Medication Sig Dispense Refill albuterol 90 mcg/actuation [...] 81 mg by mouth in the morning. paxqbdoinvk-twidufsel-onu anter (Trelegy Ellipta) 100-62.5-25 mcg blister with device [...] 400 Units by mouth in the morning. [DISCONTINUED] metoprolol tartrate (Lopressor) 25 mg tablet Take 1 tablet (25 mg) by mouth in the morning and at bedtime. 60 tablet 11 ROS: Cardio Basic Cardiovascular Symptoms: no lightheadedness, [...] feeling safe in relationship, no alcohol abuse, Hematologic/Lymphatic Hematologic/Lymphatic no swollen glands, no bruising Physical Exam: Constitutional General Appearance: well-nourished, well-developed, appears stated age Level of Distress: comfortable (more content not included)... Normal [facility] NURSNOTEon 12-10-2023 NURSNOTE RN educated pt on d/ c instructions. RN encouraged pt to voice any questions or concerns. Pt verbalizes no questions or concerns at this time. Pt was wheeled off of unit with all of belongings. Normal [facility] Orders Onlyon 11-21-2023 Orders Only [id number] Christina Coley 1955 M Date Provider Department Center 11/21/2023 [id number] DUFFY DANI [facility] Family History Problem Relation Age of Onset No Known Problems Mother No Known Problems Father Family Status - Relation Status Age at Mother Father [facility] Office Visiton 11-20-2023 Follow-up visit [id number] Christina Coley 1955 Provider Department Center 11/20/2023 Carola-ANÍBAL HOOPER DANI [facility] Family History Problem Relation Age of Onset No Known Problems Mother No Known Problems Father Family Status - Relation Status Age at Mother Father Level of Service:[id number] MD OFFICE/OUTPATIENT NEW MODERATE MDM 45 MINUTES Normal [facility] Orders Onlyon 11-20-2023 Orders Only [id number] Christina Coley 1955 M Date Provider Department Center 11/20/2023 Luís5-TENISHA AWAD D[facility] Family History Problem Relation Age of Onset No Known Problems Mother No Known Problems Father Family Status - Relation Status Age at Mother Father Normal [facility] 36on 10-15-2023 36 Per Melissa Sara Santiago- I called him and got a event monitor report of heart rate in 150's- was trying to ask if he felt it Sunday at 9:30 pm- and to increase metoprolol to 50 mg bid if B/P is ok. Per Tenisha Awad- he felt nothing and bp 140/68 hr 50-60s. She spoke to patient's and he will make the increase. Normal [facility] Documentationon 10-15-2023 Documentation [id number] Christina Coley 1955 M Date Provider Department Center 10/15/2023 TATIANA EPSTEIN [facility] Family History Problem Relation Age of Onset No Known Problems Mother No Known Problems Father Family Status - Relation Status Age at Mother Father Normal [facility] Office Visiton 10-12-2023 Follow-up visit [id number] Christina Coley 1955 M Date Provider Department Center 10/12/2023 TATIANA EPSTEIN DANI [place] [facility] Family History Problem Relation Age of Onset No Known Problems Mother No Known Problems Father Family Status - Relation Status Age at Mother Father Level of Service:04142 MD OFFICE/OUTPATIENT NEW MODERATE MDM 45 MINUTES Normal [facility] PRIMIDONE / MYSOLINEon 10-03 Phenobarbital, Serum 5 ug/mL Critically low 15-40 [facility] Comment on above: Result Comment: Dete ction Limit = 3 Performed By: #### P RIMIDO #### [facility] [address] [address] [address] Lara Horne Primidone, Serum 11.1 ug/mL Normal 5.0-12.0 [facility] Comment on above: Result Comment: Dete ction Limit = 0.3 <0.3 indicates None Detected Performed By: #### P RIMIDO #### [facility] [address] [address] [address] Lara Horne LIVER PROFILEon 10-02-2022 Albumin [Mass/Vol] 4.2 g/dL Normal 3.4-5.0 [facility] Comment on above: Performed By: #### L IVER #### [facility] [address] [address] [address] Lara Horne Albumin/Globulin [Mass ratio] 1.2 {ratio} Normal [facility] Comment on above: Performed By: #### L IVER #### [facility] [address] [address] [address] Lara Horne ALP [Catalytic activity/Vol] 131 U/L Critically high 46-116 [facility] Comment on above: Performed By: #### L IVER #### [facility] [address] [address] [address] Lara Horne ALT [Catalytic activity/Vol] 55 U/L Normal 16-63 [facility] Comment on above: Performed By: #### L IVER #### [facility] [address] [address] [address] Lara Horne AST [Catalytic activity/Vol] 25 U/L Normal 15-37 [facility] Comment on above: Performed By: #### L IVER #### [facility] [address] [address] [address] Lara Horne BILI, CONJUGATED 0.1 mg/dL Normal 0.0-0.2 [facility] Comment on above: Performed By: #### L IVER #### [facility] [address] [address] [address] Lara Horne Bilirubin [Mass/Vol] 0.3 mg/dL Normal 0.2-1.0 [facility] Comment on above: Performed By: #### L IVER #### [facility] [address] [address] [address] Lara Horne Globulin (S) [Mass/Vol] 3.5 g/dL Normal [facility] Comment on above: Performed By: #### L IVER #### [facility] [address] [address] [address] Lara Horne Protein [Mass/Vol] 7.7 g/dL Normal 6.4-8.2 [facility] Comment on above: Performed By: #### L IVER #### [facility] [address] LUNG CANCER SCREENINGon [...] by: AISSATOU WORKMAN Date: 2022-05-03 14:06 Normal [facility] Blood Pressure Cuff Sizeon 0 05-04-2021 Blood Pressure Cuff Size Adult NM-Nzledgo-Q [facility] Work Phone: Follow Up (Pulmonary Medicin e)on 05-04-2021 Follow Up (Pulmonary Medicine) Diagnoses/Problems Emphysema/COPD (492.8) (J43.9) Chronic respiratory failure with hypoxia (518.83,799.02) (J96.11) Qwyzw-5-gpzginytqha deficiency (273.4) (E88.01) Orders Continue: Trelegy Ellipta [...] antitrypsin deficiency -Continue Prolastin Follow-up with local head batcher Chief Complaint BROCK COLEY is here for [...] SOB. COMPARISON: CT dated 03/11/2021 ACCESSION NUMBER(S): [id number] ORDERING CLINICIAN: SALINAS RUIZ TECHNIQUE: Helical data [...] reactive. Electronically signed by: CAMERON SALMERON MD [facility] Daily Progress Note-Medicine on 03-15-2021 Daily Progress Note-Medicine Service: Medicine Subjective Data: BROCK COLEY is a 66 year old Male who is Hospital Day # 5. Overnight Events: Patient had an uneventful night. Additional Information: feels well Objective Data: Objective Information: T PRBPSpO2 [id number]/7993% Date/Time03/15 4:5003/15 4:5003/15 4:508 4:508/10 4:50 Range(36.6C - 37C ) (92 [...] Updated: 15-Mar-2021 15:49 by Daryl Kearns) Normal [facility] BASIC METABOLIC PANELon 08-0 Anion gap [Moles/Vol] 16 mmol/L Normal 10 - 20 [facility] Comment on above: Performed By: #### B MP ####[id number] [place] [address] Calcium [Mass/Vol] 9.0 mg/dL Normal 8.6 - 10.6 [facility] Comment on above: Performed By: #### B MP ####[id number] [place] [address] Chloride [Moles/Vol] 99 mmol/L Normal 98 - 107 [facility] Comment on above: Performed By: #### B MP ####[id number] [place] [address] Creatinine [Mass/Vol] 0.83 mg/dL Normal 0.50 - 1.30 [facility] Comment on above: Performed By: #### B MP ####[id number] [place] [address] GFR- AM. >60 Normal >60 [facility] Comment on above: Result Comment: CALC ULATIONS OF ESTIMATED GFR ARE PERFORMED USING THE MDRD STUDY EQUATION FOR THE IDMS-TRACEABLE CREATININE METHODS. CLIN CHEM 2007;53:766-72 Performed By: #### B MP ####[id number] [place] [address] GFR-NON AM. >60 Normal >60 [facility] Comment on above: Performed By: #### B MP ####[id number] [place] [address] Glucose [Mass/Vol] 151 mg/dL High 74 - 99 [facility] Comment on above: Performed By: #### B MP ####[id number] [place] [address] HCO3 (Bld) [Moles/Vol] 25 mmol/L Normal 21 - 32 [facility] Comment on above: Performed By: #### B MP ####[id number] [place] [address] Potassium [Moles/Vol] 4.6 mmol/L Normal 3.5 - 5.3 [facility] Comment on above: Performed By: #### B MP ####[id number] [place] [address] Sodium [Moles/Vol] 135 mmol/L Low 136 - 145 [facility] Comment on above: Performed By: #### B MP ####[id number] [place] [address] Urea nitrogen [Mass/Vol] 13 mg/dL Normal 6 - 23 [facility] Comment on above: Performed By: #### B MP ####[id number] [place] [address] C-REACTIVE PROTEINon 021 C-REACTIVE PROTEIN 10.63 mg/dL Abnormal [facility] Comment on above: Result Comment: REF VALUE < 1.00 Performed By: #### C BCDF #### [facility] [address] [place] [address] CBC AND DIFFERENTIALon 03-14 % AUTOMATED IMMATURE GRAN 0.5 % Normal 0.0 - 0.9 [facility] Comment on above: Result Comment: Suellen ture Granulocyte Count (IG) includes promyelocytes, myelocytes and metamyelocytes but does not include bands. Percent differential counts (%) should be interpreted in the context of the absolute cell counts (cells/L). Performed By: #### C BCDF #### [facility] [address] [place] [address] Basophils (Bld) [#/Vol] 0.05 10*3/uL Normal 0.00 - 0.10 [facility] Comment on above: Performed By: #### C BCDF #### [facility] [address] [place] [address] Basophils/100 WBC (Bld) 0.5 % Normal 0.0 - 2.0 [facility] Comment on above: Performed By: #### C BCDF #### [facility] [address] [place] [address] Eosinophils (Bld) [#/Vol] 0.19 10*3/uL Normal 0.00 - 0.70 [facility] Comment on above: Performed By: #### C BCDF #### [facility] [address] [place] [address] Eosinophils/100 WBC (Bld) 1.9 % Normal 0.0 - 6.0 [facility] Comment on above: Performed By: #### C BCDF #### [facility] [place] [address] Erythrocyte distribution width (RBC) [Ratio] 12.0 % Normal 11.5 - 14.5 [facility] Comment on above: Performed By: #### C BCDF #### [facility] [place] [address] Hematocrit (Bld) [Volume fraction] 36.0 % Low 41.0 - 52.0 [facility] Comment on above: Performed By: #### C BCDF #### [facility] [address] [place] [address] Hemoglobin (Bld) [Mass/Vol] 12.3 g/dL Low 13.5 - 17.5 [facility] Comment on above: Performed By: #### C BCDF #### [facility] [place] [address] Lymphocytes (Bld) [#/Vol] 2.29 10*3/uL Normal 1.20 - 4.80 [facility] Comment on above: Performed By: #### C BCDF #### [facility] [address] [place] [address] Lymphocytes/100 WBC (Bld) 22.7 % Normal 13.0 - 44.0 [facility] Comment on above: Performed By: #### C BCDF #### [facility] [address] [place] [address] MCHC (RBC) [Mass/Vol] 34.2 g/dL Normal 32.0 - 36.0 [facility] Comment on above: Performed By: #### C BCDF #### [facility] [place] [address] MCV (RBC) [Entitic vol] 95 fL Normal 80 - 100 [facility] Comment on above: Performed By: #### C BCDF #### [facility] [address] [place] [address] Monocytes (Bld) [#/Vol] 0.74 10*3/uL Normal 0.10 - 1.00 [facility] Comment on above: Performed By: #### C BCDF #### [facility] [address] [place] [address] Monocytes/100 WBC (Bld) 7.3 % Normal 2.0 - 10.0 [facility] Comment on above: Performed By: #### C BCDF #### [facility] [address] [place] [address] Neutrophils (Bld) [#/Vol] 6.79 10*3/uL Normal 1.20 - 7.70 [facility] Comment on above: Performed By: #### C BCDF #### [facility] [address] [place] [address] Neutrophils/100 WBC (Bld) 67.1 % Normal 40.0 - 80.0 [facility] Comment on above: Performed By: #### C BCDF #### [facility] [address] [place] [address] NUCLEATED RBC 0.0 /100 WBC Normal 0.0-0.0 [facility] Comment on above: Performed By: #### C BCDF #### [facility] [address] [place] [address] Platelets (Bld) [#/Vol] 405 10*3/uL Normal 150 - 450 [facility] Comment on above: Performed By: #### C BCDF #### [facility] [address] [place] [address] RBC 3.77 x10E12/L Low 4.50 - 5.90 [facility] Comment on above: Performed By: #### C BCDF #### [facility] [address] [place] [address] WBC (Bld) [#/Vol] 10.1 10*3/uL Normal 4.4 - 11.3 [facility] Comment on above: Performed By: #### C BCDF #### [facility] [place] [address] Daily Progress Note-Pulmonol ogyon 03-14-2021 Daily Progress Note-Pulmonology Service: Pulmonology Subjective [...] standpoint Objective Data: Objective Information: T PRBPSpO2 [id number]/7996% Date/Time03/14 5: 5: 5:238 5: 5:23 Range(35.7C - 36.8C ) (81 [...] hilar lymph nodes. Signed by Radha Malcolm, CT Chest without Contrast [Mar 11 2021 [...] days. - OP Follow up with Local Proof Operator in [facility] in 4 weeks to document resolution of [...] MD Pulmonary- Critical Care Fellow PGY-6 Pager [phone] [place] Attestation: Note Completion: I am a: Resident/Fellow Attending AttestationI saw and evaluated the patient. I personally obtained the (more content not included)... Normal [facility] Order Reconciliationon 03-14 Order Reconciliation Page 1 Discharge Reconciliation Document Reconciliation Type: Discharge requested on behalf of Alsaleh, Max (Resident) done by Max Champion ( (Resident)) [...] on last dose was 8/3, next dose 8/10Notes from Pharmacy: A 11-Mar-2021 16:07 Alpha 1-Proteinase [...] 1 inhalation Every 12 HoursNotes from Pharmacy: 11-Mar-2021 16:09 Fluticasone 250 microgram -Salmeterol 50 [...] Multiple Aleksandra (more content not included)... Normal [facility] TH CHEST 1 VIEWon 03-14-2021 TH CHEST 1 VIEW Patient Name: BROCK COLEY STUDY: CHEST 1 VIEW; 03/14/2021 6:18 am INDICATION: COPD and PNA. COMPARISON: None. ACCESSION NUMBER(S): [id number] ORDERING CLINICIAN: MAX CHAMPION FINDINGS: CARDIOMEDIASTINAL SILHOUETTE: [...] Electronically signed by: Ollie HAGER MD Normal [facility] VANCOMYCIN,TROUGHon 03-14-20 21 VANCOMYCIN,TROUGH Canceled Normal [facility] Comment on above: Order Comment: TEST VANCOMYCIN,TROUGH WAS CANCELLED, 03/13/2021 23:56 DUPLICATE ORDER. Performed By: #### C BCDF #### [facility] [address] [place] [address] CBC AND DIFFERENTIALon 03-13 % AUTOMATED IMMATURE GRAN 0.4 % Normal 0.0 - 0.9 [facility] Comment on above: Result Comment: Suellen ture Granulocyte Count (IG) includes promyelocytes, myelocytes and metamyelocytes but does not include bands. Percent differential counts (%) should be interpreted in the context of the absolute cell counts (cells/L). Performed By: #### C BCDF #### [facility] [facility] [address] [place] [address] Basophils (Bld) [#/Vol] 0.05 10*3/uL Normal 0.00 - 0.10 [facility] Comment on above: Performed By: #### C BCDF #### [facility] [address] [place] [address] Basophils/100 WBC (Bld) 0.4 % Normal 0.0 - 2.0 [facility] Comment on above: Performed By: #### C BCDF #### [facility] [address] [place] [address] Eosinophils (Bld) [#/Vol] 0.22 10*3/uL Normal 0.00 - 0.70 [facility] Comment on above: Performed By: #### C BCDF #### [facility] [address] [place] [address] Eosinophils/100 WBC (Bld) 2.0 % Normal 0.0 - 6.0 [facility] Comment on above: Performed By: #### C BCDF #### [facility] [address] [place] [address] Erythrocyte distribution width (RBC) [Ratio] 12.0 % Normal 11.5 - 14.5 [facility] Comment on above: Performed By: #### C BCDF #### [facility] [address] [place] [address] Hematocrit (Bld) [Volume fraction] 39.5 % Low 41.0 - 52.0 [facility] Comment on above: Performed By: #### C BCDF #### [facility] [address] [place] [address] Hemoglobin (Bld) [Mass/Vol] 13.4 g/dL Low 13.5 - 17.5 [facility] Comment on above: Performed By: #### C BCDF #### [place] [address] [place] [address] Lymphocytes (Bld) [#/Vol] 3.15 10*3/uL Normal 1.20 - 4.80 [facility] Comment on above: Performed By: #### C BCDF #### [facility] [address] [place] [address] Lymphocytes/100 WBC (Bld) 28.0 % Normal 13.0 - 44.0 [facility] Comment on above: Performed By: #### C BCDF #### [facility] [address] [place] [address] MCHC (RBC) [Mass/Vol] 33.9 g/dL Normal 32.0 - 36.0 [facility] Comment on above: Performed By: #### C BCDF #### [facility] [address] [place] [address] MCV (RBC) [Entitic vol] 98 fL Normal 80 - 100 [facility] Comment on above: Performed By: #### C BCDF #### [facility] [address] [place] [address] Monocytes (Bld) [#/Vol] 1.08 10*3/uL High 0.10 - 1.00 [facility] Comment on above: Performed By: #### C BCDF #### [facility] [address] [place] [address] Monocytes/100 WBC (Bld) 9.6 % Normal 2.0 - 10.0 [facility] Comment on above: Performed By: #### C BCDF #### [facility] [address] [place] [address] Neutrophils (Bld) [#/Vol] 6.72 10*3/uL Normal 1.20 - 7.70 [facility] Comment on above: Performed By: #### C BCDF #### [facility] [address] [place] [address] Neutrophils/100 WBC (Bld) 59.6 % Normal 40.0 - 80.0 [facility] Comment on above: Performed By: #### C BCDF #### [facility] [address] [place] [address] NUCLEATED RBC 0.0 /100 WBC Normal 0.0-0.0 [facility] Comment on above: Performed By: #### C BCDF #### [facility] [address] [place] [address] Platelets (Bld) [#/Vol] 424 10*3/uL Normal 150 - 450 [facility] Comment on above: Performed By: #### C BCDF #### [facility] [address] [place] [address] RBC 4.02 x10E12/L Low 4.50 - 5.90 [facility] Comment on above: Performed By: #### C BCDF #### [facility] [address] [place] [address] WBC (Bld) [#/Vol] 11.3 10*3/uL Normal 4.4 - 11.3 [facility] Comment on above: Performed By: #### C BCDF #### [facility] [address] [place] [address] COMPREHENSIVE PANELon 2020 Albumin [Mass/Vol] 3.9 g/dL Normal 3.4 - 5.0 [facility] Comment on above: Performed By: #### C BCDF #### [facility] [address] [place] [address] ALP [Catalytic activity/Vol] 99 U/L Normal 33 - 136 [facility] Comment on above: Performed By: #### C BCDF #### [facility] [address] [place] [address] ALT [Catalytic activity/Vol] 101 U/L High 10 - 52 [facility] Comment on above: Result Comment: Oksana ents treated with Sulfasalazine may generate falsely decreased results for ALT. Performed By: #### C BCDF #### [facility] [address] [place] [address] Anion gap [Moles/Vol] 17 mmol/L Normal 10 - 20 [facility] Comment on above: Performed By: #### C BCDF #### [facility] [address] [place] [address] AST [Catalytic activity/Vol] 45 U/L High 9 - 39 [facility] Comment on above: Performed By: #### C BCDF #### [facility] [address] [place] [address] Bilirubin [Mass/Vol] 0.7 mg/dL Normal 0.0 - 1.2 [facility] Comment on above: Performed By: #### C BCDF #### [facility] [address] [place] [address] Calcium [Mass/Vol] 9.1 mg/dL Normal 8.6 - 10.6 [facility] Comment on above: Performed By: #### C BCDF #### [facility] [address] [place] [address] Chloride [Moles/Vol] 101 mmol/L Normal 98 - 107 [facility] Comment on above: Performed By: #### C BCDF #### [facility] [address] [place] [address] Creatinine [Mass/Vol] 0.96 mg/dL Normal 0.50 - 1.30 [facility] Comment on above: Performed By: #### C BCDF #### [facility] [address] [place] [address] GFR- AM. >60 Normal >60 [facility] Comment on above: Result Comment: CALC ULATIONS OF ESTIMATED GFR ARE PERFORMED USING THE MDRD STUDY EQUATION FOR THE IDMS-TRACEABLE CREATININE METHODS. CLIN CHEM 2007;53:766-72 Performed By: #### C BCDF #### [facility] [address] [place] [address] GFR-NON AM. >60 Normal >60 [facility] Comment on above: Performed By: #### C BCDF #### [facility] [address] [place] [address] Glucose [Mass/Vol] 108 mg/dL High 74 - 99 [facility] Comment on above: Performed By: #### C BCDF #### [facility] [address] [place] [address] HCO3 (Bld) [Moles/Vol] 22 mmol/L Normal 21 - 32 [facility] Comment on above: Performed By: #### C BCDF #### [facility] [address] [place] [address] Potassium [Moles/Vol] 4.7 mmol/L Normal 3.5 - 5.3 [facility] Comment on above: Performed By: #### C BCDF #### [facility] [address] [place] [address] Protein [Mass/Vol] 6.6 g/dL Normal 6.4 - 8.2 [facility] Comment on above: Performed By: #### C BCDF #### [facility] [address] [place] [address] Sodium [Moles/Vol] 135 mmol/L Low 136 - 145 [facility] Comment on above: Performed By: #### C BCDF #### [facility] [address] [place] [address] Urea nitrogen [Mass/Vol] 16 mg/dL Normal 6 - 23 [facility] Comment on above: Performed By: #### C BCDF #### [facility] [address] [place] [address] Daily Progress Note-Medicine on 03-13-2021 Daily Progress Note-Medicine Service: Medicine Subjective Data: BROCK COLEY is a 66 year old Male who is Hospital Day # 3. Objective Data: Objective Information: T PRBPSpO2 Value35.08462510/6294% Date/Time03/13 13: 13:5403/13 13:5403/13 13: 13:54 Range(35.7C - 36.9C ) (81 [...] is a 66 year old Male with qzafe-2-ezjhgswhts deficiency (on weekly Prolastin-C, 1000mg IV every [...] to re-assess tomorrow. Below plan not updated #Mnibs-9-acbhpjschzc deficiency #Emphysema with severe copd s/p LLL [...] the note. I personally evaluated the patient [id number] Comments/ Additional Findings Seen on rounds, reported [...] Updated: 13-Mar-2021 23:14 by Miriam Marks) Normal [facility] LEGIONELLA AG, URINEon 03-13 LEGIONELLA AG, URINE Negative Normal Negative [facility] Comment on above: Result Comment: NEGA TIVE FOR LEGIONELLA PNEUMOPHILIA SEROGROUP 1 ANTIGEN IN URINE, SUGGESTING NO CURRENT OR PAST INFECTION. Performed By: #### C BCDF #### [facility] [address] [place] [address] S.PNEUMONIAE AG,Uon 03-13-20 S.PNEUMONIAE AG,U Negative Normal Negative [facility] Comment on above: Result Comment: Pres umptive negative for pneumococcal pneumonia, suggesting no current or recent infection. Infection due to S. pneumoniae cannot be ruled out since the antigen present in the sample may be below the detection limit of the test. Performed By: #### S PNAG #### [facility] [address] [place] [address] TH CHEST 1 VIEWon 03-13-2021 TH CHEST 1 VIEW Patient Name: BROCK COLEY STUDY: CHEST 1 VIEW; 03/13/2021 6:08 am INDICATION: desat. COMPARISON: 03/12/2021 ACCESSION NUMBER(S): [id number] ORDERING CLINICIAN: ANNA MAN FINDINGS: AP radiograph [...] Electronically signed by: BASILIO OLIVAREZ MD Normal [facility] VANCOMYCIN,TROUGHon 03-13-20 21 VANCOMYCIN,TROUGH 12.8 ug/mL Normal 5.0 - 20.0 [facility] Comment on above: Result Comment: Vanc omycin levels should be interpreted in conjunction with the dose, disease being treated, vancomycin CELESTE, time of draw (trough concentrations should be obtained just before the next dose at steady-state), and other clinical information. Trough concentrations of 15-20 ug/mL are desired for severe infections. Ref.: Am J Health-Syst Pharm 66: 83-98, 2009. Performed By: #### V ANCT #### [facility] [address] [place] [address] C-REACTIVE PROTEINon 021 C-REACTIVE PROTEIN 11.18 mg/dL Abnormal [facility] Comment on above: Result Comment: REF VALUE < 1.00 Performed By: #### C RP #### [facility] [address] [place] [address] CBC AND DIFFERENTIALon 03-12 % AUTOMATED IMMATURE GRAN 0.5 % Normal 0.0 - 0.9 [facility] Comment on above: Result Comment: Suellen ture Granulocyte Count (IG) includes promyelocytes, myelocytes and metamyelocytes but does not include bands. Percent differential counts (%) should be interpreted in the context of the absolute cell counts (cells/L). Performed By: #### C BCDF #### [facility] [address] [place] [address] Basophils (Bld) [#/Vol] 0.03 10*3/uL Normal 0.00 - 0.10 [facility] Comment on above: Performed By: #### C BCDF #### [facility] [address] [place] [address] Basophils/100 WBC (Bld) 0.3 % Normal 0.0 - 2.0 [facility] Comment on above: Performed By: #### C BCDF #### [facility] [address] [place] [address] Eosinophils (Bld) [#/Vol] 0.15 10*3/uL Normal 0.00 - 0.70 [facility] Comment on above: Performed By: #### C BCDF #### [facility] [address] [place] [address] Eosinophils/100 WBC (Bld) 1.6 % Normal 0.0 - 6.0 [facility] Comment on above: Performed By: #### C BCDF #### [facility] [address] [place] [address] Erythrocyte distribution width (RBC) [Ratio] 12.1 % Normal 11.5 - 14.5 [facility] Comment on above: Performed By: #### C BCDF #### [facility] [address] [place] [address] Hematocrit (Bld) [Volume fraction] 37.4 % Low 41.0 - 52.0 [facility] Comment on above: Performed By: #### C BCDF #### [place] [address] [place] [address] Hemoglobin (Bld) [Mass/Vol] 13.0 g/dL Low 13.5 - 17.5 [facility] Comment on above: Performed By: #### C BCDF #### [facility] [address] [place] [address] Lymphocytes (Bld) [#/Vol] 2.27 10*3/uL Normal 1.20 - 4.80 [facility] Comment on above: Performed By: #### C BCDF #### [facility] [address] [place] [address] Lymphocytes/100 WBC (Bld) 24.0 % Normal 13.0 - 44.0 [facility] Comment on above: Performed By: #### C BCDF #### [facility] [address] [place] [address] MCHC (RBC) [Mass/Vol] 34.8 g/dL Normal 32.0 - 36.0 [facility] Comment on above: Performed By: #### C BCDF #### [facility] [address] [place] [address] MCV (RBC) [Entitic vol] 97 fL Normal 80 - 100 [facility] Comment on above: Performed By: #### C BCDF #### [facility] [address] [place] [address] Monocytes (Bld) [#/Vol] 0.95 10*3/uL Normal 0.10 - 1.00 [facility] Comment on above: Performed By: #### C BCDF #### [facility] [address] [place] [address] Monocytes/100 WBC (Bld) 10.1 % Normal 2.0 - 10.0 [facility] Comment on above: Performed By: #### C BCDF #### [facility] [address] [place] [address] Neutrophils (Bld) [#/Vol] 6.00 10*3/uL Normal 1.20 - 7.70 [facility] Comment on above: Performed By: #### C BCDF #### [facility] [address] [place] [address] Neutrophils/100 WBC (Bld) 63.5 % Normal 40.0 - 80.0 [facility] Comment on above: Performed By: #### C BCDF #### [facility] [address] [place] [address] NUCLEATED RBC 0.0 /100 WBC Normal 0.0-0.0 [facility] Comment on above: Performed By: #### C BCDF #### [facility] [address] [place] [address] Platelets (Bld) [#/Vol] 406 10*3/uL Normal 150 - 450 [facility] Comment on above: Performed By: #### C BCDF #### [facility] [address] [place] [address] RBC 3.84 x10E12/L Low 4.50 - 5.90 [facility] Comment on above: Performed By: #### C BCDF #### [facility] [address] [place] [address] WBC (Bld) [#/Vol] 9.5 10*3/uL Normal 4.4 - 11.3 [facility] Comment on above: Performed By: #### C BCDF #### [facility] [address] [place] [address] Daily Progress Note-Medicine on 03-12-2021 Daily Progress Note-Medicine Service: Medicine Subjective Data: BROCK COLEY is a 66 year old Male who is Hospital Day # 2. Objective Data: Objective Information: T PRBPSpO2 [id number]/8491% Date/Time03/12 13: 13: 13: 13: 13:18 Range(35.5C [...] is a 66 year old Male with byiyn-7-hobpvaeyhe deficiency (on weekly Prolastin-C, 1000mg IV every [...] to 2-3 L Below plan not updated #Pwykw-4-smzuvdoagdx deficiency #Emphysema with severe copd s/p LLL EBV placement for LVRS #Chronic hypoxic respiratory failure #Acute pneumonia of left upper lobe s/p failed Levaquin vs possible re-expansion injury - treating with Vanc/Zosyn - dubriannabs - Pulmonary following, appreciate reccs: -Obtain sputum [...] the note. I personally evaluated the patient [id number] Comments/ Additional Findings Please refer to H&P Electronic Signatures: Anna Johnson (Resident)) (Signed 12-Mar-2021 14:40) Authored: Subjective (more content not included)... Normal [facility] LEGIONELLA AG, URINEon 03-12 Lab Specimen Source Normal [facility] Comment on above: Performed By: #### C BCDF #### [facility] [address] [place] [address] MAGNESIUMon 03-12-2021 Magnesium [Mass/Vol] 2.24 mg/dL Normal 1.60 - 2.40 [facility] Comment on above: Performed By: #### M G #### [facility] [address] [place] [address] RENAL FUNCTION PANELon 03-12 Albumin [Mass/Vol] 3.9 g/dL Normal 3.4 - 5.0 [facility] Comment on above: Performed By: #### R ENAL #### [facility] [address] [place] [address] Anion gap [Moles/Vol] 13 mmol/L Normal 10 - 20 [facility] Comment on above: Performed By: #### R ENAL #### [facility] [address] [place] [address] Calcium [Mass/Vol] 9.3 mg/dL Normal 8.6 - 10.6 [facility] Comment on above: Performed By: #### R ENAL #### [facility] [address] [place] [address] Chloride [Moles/Vol] 100 mmol/L Normal 98 - 107 [facility] Comment on above: Performed By: #### R ENAL #### [facility] [address] [place] [address] Creatinine [Mass/Vol] 0.83 mg/dL Normal 0.50 - 1.30 [facility] Comment on above: Performed By: #### R ENAL #### [facility] [address] [place] [address] GFR- AM. >60 Normal >60 [facility] Comment on above: Result Comment: CALC ULATIONS OF ESTIMATED GFR ARE PERFORMED USING THE MDRD STUDY EQUATION FOR THE IDMS-TRACEABLE CREATININE METHODS. CLIN CHEM 2007;53:766-72 Performed By: #### R ENAL #### [facility] [address] [place] [address] GFR-NON AM. >60 Normal >60 [facility] Comment on above: Performed By: #### R ENAL #### [facility] [address] [place] [address] Glucose [Mass/Vol] 114 mg/dL High 74 - 99 [facility] Comment on above: Performed By: #### R ENAL #### [facility] [address] [place] [address] HCO3 (Bld) [Moles/Vol] 25 mmol/L Normal 21 - 32 [facility] Comment on above: Performed By: #### R ENAL #### [facility] [address] [place] [address] Phosphate [Mass/Vol] 4.0 mg/dL Normal 2.5 - 4.9 [facility] Comment on above: Result Comment: The performance characteristics of phosphorus testing in heparinized plasma have been validated by the individual laboratory site where testing is performed. Testing on heparinized plasma is not approved by the FDA; however, such approval is not necessary. Performed By: #### R ENAL #### [facility] [address] [place] [address] Potassium [Moles/Vol] 4.2 mmol/L Normal 3.5 - 5.3 [facility] Comment on above: Performed By: #### R ENAL #### [facility] [address] [place] [address] Sodium [Moles/Vol] 134 mmol/L Low 136 - 145 [facility] Comment on above: Performed By: #### R ENAL #### [facility] [address] [place] [address] Urea nitrogen [Mass/Vol] 15 mg/dL Normal 6 - 23 [facility] Comment on above: Performed By: #### R ENAL #### [facility] [address] [place] [address] RESPIRATORY CULT./SM,LOWERon 03-12-2021 RESPIRATORY CULT./SM,LOWER PATIENT: BROCK COLEY LOCATION: [address]#: [id number] : 53 AGE: SEX: M ORDERED BY: ANNA JOHNSON SOURCE: SPUTUM COLLECTED: 03/12/21 13:04 ANTIBIOTICS AT DIO.: RECEIVED : 03/12/21 15:41 SITE: R E S U L T S GRAM STAIN FINAL 03/12/21 16:45 GRAM STAIN INDICATES SPECIMEN CONSISTS OF LOWER RESPIRATORY TRACT SECRETIONS. NO PREDOMINANT ORGANISM. RESPIRATORY CULT./SM,LOWER FINAL 03/14/21 11:59 NORMAL THROAT MELANIE. Normal [facility] Comment on above: Performed By: #### R ESPL #### [facility] [address] [place] [address] TH CHEST 1 VIEWon 03-12-2021 TH CHEST 1 VIEW Patient Name: BROCK COLEY STUDY: CHEST 1 VIEW; 03/12/2021 3:53 am INDICATION: COPD with HAP. COMPARISON: 03/11/2021 ACCESSION NUMBER(S): [id number] ORDERING CLINICIAN: MAX CHAMPION FINDINGS: AP radiograph [...] Electronically signed by: BASILIO OLIVAREZ MD Normal [facility] Admission Risk Screen - Adul ton 03-11-2021 [...] AlertFor Ebola-like Symptoms: Isolate Patient and Notify Provider/Refinery Process Engineer For Contact: Notify Provider/Refinery Process Engineer Advance Directive: Advance Directive/DNRno Advance Directive Information [...] Learning Preferencesverbal instruction Cultural Considerationsnone Developmental Considerationsnone Jewish Considerationsnone Learning Assessment (Other Learner): Other learner availableyes... Learnerspouse Factors Influencing Readiness to Learnnone Factors that Impact Ability to Learnnone Devices/Methods Used to Communicatenone Learning Preferencesverbal instruction Cultural Considerationsnone Developmental Considerationsnone Jewish Considerationsnone Depression Screen: During the past month, have you often been bothered by feeling down, depressed or hopelessno During the past month, have you often had little interest or pleasure in doing thingsno Have you had any thoughts of harming anyone elseno Joffre Suicide: Risk Screen Not Applicable/Able to Answerable to be screened In the Past Month: Have you wished you were or could go to sleep and not wake upno In the Past Month: Have you had any actual thoughts of killing yourselfno Lifetime: Have you ever done, started to do, or prepared to do anything to end your lifeno Joffre Suicide Risknegative Adult Nutrition Screen: Have you [...] = Non (more content not included)... Normal [facility] BLOOD CULTURE, BACTERIALon 0 03-11-2021 BLOOD CULTURE, BACTERIAL PATIENT: BROCK COLEY LOCATION: [address] BILL#: [id number] : 53 AGE: SEX: M ORDERED BY: MIRIAM MARKS SOURCE: Blood COLLECTED: 03/11/21 17:20 ANTIBIOTICS AT DIO.: RECEIVED : 03/11/21 18:34 SITE: PERIPHERAL R E S U L T S BLOOD CULTURE, BACTERIAL FINAL 03/16/21 19:42 No Growth at 1 days No Growth at 2 days No Growth at 3 days No Growth at 4 days NO GROWTH - FINAL REPORT Normal [facility] Comment on above: Performed By: #### C BCDF #### [facility] [address] [place] [address] BLOOD CULTURE, BACTERIAL PATIENT: BROCK COLEY LOCATION: [address] BILL#: [id number] : 53 AGE: SEX: M ORDERED BY: MIRIAM MARKS SOURCE: Blood COLLECTED: 03/11/21 17:19 ANTIBIOTICS AT DIO.: RECEIVED : 03/11/21 18:34 SITE: PERIPHERAL R E S U L T S BLOOD CULTURE, BACTERIAL FINAL 03/16/21 19:42 No Growth at 1 days No Growth at 2 days No Growth at 3 days No Growth at 4 days NO GROWTH - FINAL REPORT Normal [facility] Comment on above: Performed By: #### C BCDF #### [facility] [address] [place] [address] C-REACTIVE PROTEINon 021 C-REACTIVE PROTEIN 11.84 mg/dL Abnormal [facility] Comment on above: Result Comment: REF VALUE < 1.00 Performed By: #### C RP #### [facility] [address] [place] [address] CBC AND DIFFERENTIALon 03-11 % AUTOMATED IMMATURE GRAN 0.3 % Normal 0.0 - 0.9 [facility] Comment on above: Result Comment: Suellen ture Granulocyte Count (IG) includes promyelocytes, myelocytes and metamyelocytes but does not include bands. Percent differential counts (%) should be interpreted in the context of the absolute cell counts (cells/L). Performed By: #### C RP #### [facility] [place] [address] Basophils (Bld) [#/Vol] 0.03 10*3/uL Normal 0.00 - 0.10 [facility] Comment on above: Performed By: #### C RP #### [facility] [address] [place] [address] Basophils/100 WBC (Bld) 0.3 % Normal 0.0 - 2.0 [facility] Comment on above: Performed By: #### C RP #### [facility] [address] [place] [address] Eosinophils (Bld) [#/Vol] 0.10 10*3/uL Normal 0.00 - 0.70 [facility] Comment on above: Performed By: #### C RP #### [facility] [address] [place] [address] Eosinophils/100 WBC (Bld) 1.0 % Normal 0.0 - 6.0 [facility] Comment on above: Performed By: #### C RP #### [facility] [address] [place] [address] Erythrocyte distribution width (RBC) [Ratio] 12.1 % Normal 11.5 - 14.5 [facility] Comment on above: Performed By: #### C RP #### [facility] [address] [place] [address] Hematocrit (Bld) [Volume fraction] 39.3 % Low 41.0 - 52.0 [facility] Comment on above: Performed By: #### C RP #### [facility] [address] [place] [address] Hemoglobin (Bld) [Mass/Vol] 13.5 g/dL Normal 13.5 - 17.5 [facility] Comment on above: Performed By: #### C RP #### [facility] [address] [place] [address] Lymphocytes (Bld) [#/Vol] 2.00 10*3/uL Normal 1.20 - 4.80 [facility] Comment on above: Performed By: #### C RP #### [facility] [address] [place] [address] Lymphocytes/100 WBC (Bld) 20.6 % Normal 13.0 - 44.0 [facility] Comment on above: Performed By: #### C RP #### [facility] [address] [place] [address] MCHC (RBC) [Mass/Vol] 34.4 g/dL Normal 32.0 - 36.0 [facility] Comment on above: Performed By: #### C RP #### [facility] [address] [place] [address] MCV (RBC) [Entitic vol] 98 fL Normal 80 - 100 [facility] Comment on above: Performed By: #### C RP #### [facility] [address] [place] [address] Monocytes (Bld) [#/Vol] 0.98 10*3/uL Normal 0.10 - 1.00 [facility] Comment on above: Performed By: #### C RP #### [facility] [address] [place] [address] Monocytes/100 WBC (Bld) 10.1 % Normal 2.0 - 10.0 [facility] Comment on above: Performed By: #### C RP #### [facility] [address] [place] [address] Neutrophils (Bld) [#/Vol] 6.59 10*3/uL Normal 1.20 - 7.70 [facility] Comment on above: Performed By: #### C RP #### [facility] [address] [place] [address] Neutrophils/100 WBC (Bld) 67.7 % Normal 40.0 - 80.0 [facility] Comment on above: Performed By: #### C RP #### [facility] [address] [place] [address] NUCLEATED RBC 0.0 /100 WBC Normal 0.0-0.0 [facility] Comment on above: Performed By: #### C RP #### [facility] [address] [place] [address] Platelets (Bld) [#/Vol] 393 10*3/uL Normal 150 - 450 [facility] Comment on above: Performed By: #### C RP #### [facility] [address] [place] [address] RBC 4.01 x10E12/L Low 4.50 - 5.90 [facility] Comment on above: Performed By: #### C RP #### [facility] [address] [place] [address] WBC (Bld) [#/Vol] 9.7 10*3/uL Normal 4.4 - 11.3 [facility] Comment on above: Performed By: #### C RP #### [facility] [address] [place] [address] COMPREHENSIVE PANELon 2020 Albumin [Mass/Vol] 4.2 g/dL Normal 3.4 - 5.0 [facility] Comment on above: Performed By: #### C BCDF #### [facility] [address] [place] [address] ALP [Catalytic activity/Vol] 93 U/L Normal 33 - 136 [facility] Comment on above: Performed By: #### C BCDF #### [facility] [address] [place] [address] ALT [Catalytic activity/Vol] 82 U/L High 10 - 52 [facility] Comment on above: Result Comment: Oksana ents treated with Sulfasalazine may generate falsely decreased results for ALT. Performed By: #### C BCDF #### [facility] [address] [place] [address] Anion gap [Moles/Vol] 17 mmol/L Normal 10 - 20 [facility] Comment on above: Performed By: #### C BCDF #### [facility] [address] [place] [address] AST [Catalytic activity/Vol] 37 U/L Normal 9 - 39 [facility] Comment on above: Performed By: #### C BCDF #### [facility] [address] [place] [address] Bilirubin [Mass/Vol] 0.5 mg/dL Normal 0.0 - 1.2 [facility] Comment on above: Performed By: #### C BCDF #### [facility] [address] [place] [address] Calcium [Mass/Vol] 9.6 mg/dL Normal 8.6 - 10.6 [facility] Comment on above: Performed By: #### C BCDF #### [facility] [address] [place] [address] Chloride [Moles/Vol] 101 mmol/L Normal 98 - 107 [facility] Comment on above: Performed By: #### C BCDF #### [facility] [address] [place] [address] Creatinine [Mass/Vol] 0.68 mg/dL Normal 0.50 - 1.30 [facility] Comment on above: Performed By: #### C BCDF #### [facility] [address] [place] [address] GFR- AM. >60 Normal >60 [facility] Comment on above: Result Comment: CALC ULATIONS OF ESTIMATED GFR ARE PERFORMED USING THE MDRD STUDY EQUATION FOR THE IDMS-TRACEABLE CREATININE METHODS. CLIN CHEM 2007;53:766-72 Performed By: #### C BCDF #### [facility] [address] [place] [address] GFR-NON AM. >60 Normal >60 [facility] Comment on above: Performed By: #### C BCDF #### [facility] [address] [place] [address] Glucose [Mass/Vol] 100 mg/dL High 74 - 99 [facility] Comment on above: Performed By: #### C BCDF #### [facility] [address] [place] [address] HCO3 (Bld) [Moles/Vol] 23 mmol/L Normal 21 - 32 [facility] Comment on above: Performed By: #### C BCDF #### [facility] [address] [place] [address] Potassium [Moles/Vol] 4.7 mmol/L Normal 3.5 - 5.3 [facility] Comment on above: Performed By: #### C BCDF #### [facility] [address] [place] [address] Protein [Mass/Vol] 7.1 g/dL Normal 6.4 - 8.2 [facility] Comment on above: Performed By: #### C BCDF #### [facility] [address] [place] [address] Sodium [Moles/Vol] 136 mmol/L Normal 136 - 145 [facility] Comment on above: Performed By: #### C BCDF #### [facility] [address] [place] [address] Urea nitrogen [Mass/Vol] 15 mg/dL Normal 6 - 23 [facility] Comment on above: Performed By: #### C BCDF #### [facility] [address] [place] [address] Clinical Event Note-Senior Vish marte noteon 03-11-2021 [...] no limb edema, not in distress. Received COVDatumate Pfizer 2nd dose in . CT chest, [...] target O2 88-92%. Electronic Signatures: Max Champion (Resident)) (Signed 11-Mar-2021 17:37) Authored: Clinical Event Note Last Updated: 11-Mar-2021 17:37 by Max Champion ( (Resident)) Normal [facility] Consult-Pulmonologyon 2020 Consult-Pulmonology Service: Service: Pulmonology Consult: [...] ~17 mmHg SURGICAL HX: Cholecystectomy 2010 at [facility] FAMILY HX: Multiple members- COPD, [...] the note. I personally evaluated the patient [id number] (more content not included)... Normal [facility] Discharge Planning [id number] 0 03-11-2021 Discharge Planning Note2 Discharge Planning: Needs Prior to Discharge (ex. Home Care Orders, IV/O2 prescriptions) f/u appts Planned Dispositionhome Discharge DestinationHome with spouse AMPAC < 20no Anticipated Discharge [id number] Discharge Planning Admission Note: 03/11/21 14:55 Pt admitted from his pulmonologists office. He presented with intermittent fevers and a decreased pulse ox with activity. Pt's vital signs are stable and he is afebrile. He has no c/o pain. Awaiting MD orders. Lisa Hernandez RN. truck service manager Note: 03/15/21 1400 Pt dc home with . Pt given meds to bed and remains on 4L 02. Pt educated on discharge instructions and follow up appointment. Stephania Tran RN Discharge Barriersnone Assessment: Discharge Planning Assessment [id number]-6773 Discharge Planning Assessment Completed byVaishali Siddiqui RNspecial service officer Coordinator Primary Contact Name and NumberDarlene (spouse)-[phone] Stated Reason for AdmissionI was having fevers at home.(1) Arrived Fromphysician office (1) PCPLauritarburt Ruiz- head batcher PCP Last Date [facility] [place] Medication Adherence/Afford/Obtainye s InsuranceMedi A/B/Aetna Sr Supp Lives Withspouse; pt's phone #: [phone] Living Arrangementshouse(1) Recent Falls/ Injury/ Need Assist with Ambulationdenies Prior Level of Functioningindependent with ADLS Equipment Currently Used at HomeN/A Home Care Agency/Support ServicesN/A DME Supplier Name/NumberN/A Home O2/BiPAP/CPAPHome O2 O2 LPM4L [place] [facility] O2 [facility] [phone] Diabetic/Supplies NeededN/A Hemodialysis ScheduleN/A Resource/Environmental Concernsnone(1) Social [...] to follow for discharge needs. Vaishali Siddiqui RNspecial service officer Coordinator Discharge Documentation: Discharge/Transfer Date/Cari43-Rib-5751 Electronic Signatures: Lisa Hernandez (RN) (Signed 11-Mar-2021 18:00) Authored: Discharge Planning, Assessment, Discharge Documentation Vaishali Siddiqui (CLIN COOR) (Signed 14-Mar-2021 15:04) Authored: Discharge Planning, Assessment Stephania Tran (RN) (Signed 15-Mar-2021 14:29) Authored: Discharge Planning Last Updated: 15-Mar-2021 14:29 by Stephania Tran (RN) References: 1. Data Referenced From Patient Profile - Adult v2 11-Mar-2021 17:52 Normal [facility] Discharge [id number] 021 Discharge Profile2 Discharge Orders: Anticipated Discharge Date: Anticipated Discharge [id number] Anticipated Discharge Time13:38 DNAR: DNAR Status: none Oxygen: Administer oxygen at 4 via to maintain SpO2 % of. Hospital Course (Home Care/Gold Form): Hospital Course: Hospital Course: include significant abnormal lab values Mr. 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 Viraj Maloney Primary Care Physician Scheduled Date/Phxk46-Cxb-9010 09:[address] [place] [address] Phone [phone] CommentsPlease arrive 10-15 minutes early, bring photo ID, insurance cards, discharge summary, and a list of current medications. Please call the office if you need to change this appointment. Follow-Up Appointment 02: Physician/Dept/Ryan swanson Proof Operator Reason for ReferralCOPD Call to Schedule in1 week [facility] Electronic Signatures: Max Champion ( (Resident)) (Signed 15-Mar-2021 13:39) Authored: Discharge Orders, Hospital Course (Home Care/Gold Form), Provider FINAL REVIEW of Orders, Appointments Franki Palacios (Resident)) (Signed 15-Mar-2021 08:29) Authored: Discharge Orders, Hospital Course (Home Care/Gold Form), Provider FINAL REVIEW of Orders Arleth Solares ( (Resident)) (Signed 11-Mar-2021 20:21) Authored: Discharge Orders, Hospital Course (Home Care/Gold Form), Gold Form - Mold Cleaner Summary Alyson Cao (PT ACC REP) (Signed 15-Mar-2021 11:40) Authored: Discharge Orders, Appointments Last Updated: 15-Mar-2021 13:39 by Max Champion ( (Resident)) Normal [facility] Follow Up (Pulmonary Medicin e)on 03-11-2021 Follow [...] History: +COPD +Leukemia +gastric cancer Active Problems 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 Vitals Vital Signs Recorded: 11Mar2021 01:01PM Etpedbixfnl83.4 C Heart Rate92 Systolic1 (more content not included)... Normal [facility] Order Reconciliationon 03-11 Order Reconciliation Page 1 Admission Reconciliation Document Reconciliation Type: Admission requested on behalf of Max Champion (Resident) done by Max Champion ( (Resident)) Admission - Reconciliation: 11-Mar-2021 16:07 by: Max Champion ( (Resident)) Home MedicationsEnteredLast Dose TakenReconciled with current Order Reconciliation Comment/ Additional Information albuterol 90 mcg/inh inhalation aerosol with adapter 2 puff(s) inhaled every 4 hours, As Ddyqds61-Bsl-2502 Albuterol 2.5 mg/ 3 mL Nebulizer Soln (PROVENTIL)DOSE = 3 mL Inhalation Every 4 Hours via Nebulizeralbuterol 90 mcg/inh inhalation aerosol with adapter continued as the inpatient order Albuterol 2.5 mg/ 3 mL Nebulizer Soln Aspirin Low Dose 81 mg oral tablet, chewable 1 orally once a aot64-Hen-1330 Aspirin Chewable Tablet, ChewableDOSE = 81 mg Oral DailyAspirin Low Dose 81 mg oral tablet, chewable continued as the inpatient order Aspirin Chewable Multiple Vitamins oral tablet 1 tab(s) orally once a suq80-Ayo-7468 Vitamin B Complex with C EachDOSE = 1 each Oral DailyMultiple Vitamins oral tablet continued as the inpatient order Vitamin B Complex with C primidone 250 mg oral tablet 1 orally every 12 fgeyi69-Pkh-2444 Primidone Tablet (MYSOLINE)DOSE = 250 mg Oral [...] inhalation powder 1 puff(s) inhaled once a lof09-Ygh-7047 Reviewed and Held vitamin E 400 intl units oral capsule 1 cap(s) orally once a tmb20-Sgj-2302 Reviewed and Held Normal [facility] Patient Profile - Adult v2on 03-11-2021 Patient [...] e(1) Weight in kg111.3 kilogram(s)(2) Weight in wtt881.3 pound(s) Weight Methodstated Scale Typebed Height in [...] need to know to best care for shelbi Substance: Smoking Statusnever smoker Health Mgmt: Symptoms/Conditions [...] Known Allergies: Active Electronic Signatures: Lisa Hernandez (RN) (Signed 11-Mar-2021 17:56) Authored: Initial Info, General Health, RSP Based Care, Substance, Health Mgmt, Relationship/Environ, Additional Information Last Updated: 11-Mar-2021 17:56 by Lisa Hernandez (RN) References: 1. Data Referenced From Patient Profile - Procedure-H and P 25-Feb-2021 15:43 2. Data Referenced From 1. Vital Signs 11-Mar-2021 15:12 Normal [facility] RESPIRATORY CULT./SM,LOWERon 03-11-2021 RESPIRATORY CULT./SM,LOWER PATIENT: BROCK COLEY LOCATION: [address]#: [id number] : 53 AGE: SEX: M ORDERED BY: [...] INDICATED. RESPIRATORY CULT./SM,LOWER CANCELLED 03/12/21 09:05 Normal [facility] Comment on above: Performed By: #### C RP #### [facility] [address] [place] [address] STAPH/MRSA SCREENon 03-11-20 21 STAPH/MRSA SCREEN PATIENT: JAMIR COLEY LOCATION: [address] BILL#: [id number] : 53 AGE: SEX: M ORDERED BY: MIRIAM MARKS SOURCE: MISC COLLECTED: 03/11/21 18:33 ANTIBIOTICS AT DIO.: RECEIVED : 03/11/21 22:02 SITE: Nasal/Groin and Axilla R E S U L T S STAPH/MRSA SCREEN FINAL 03/13/21 10:45 NO Staphylococcus aureus ISOLATED. Normal [facility] Comment on above: Performed By: #### C RP #### [facility] [address] [place] [address] TH CHEST 2 VIEW PA AND LATon 03-11-2021 TH CHEST 2 VIEW PA AND LAT Patient Name: BROCK COLEY STUDY: TH CHEST 2 VIEW PA AND LAT; 03/11/2021 5:21 pm INDICATION: COPD with HAP. COMPARISON: Prior chest radiograph from 03/03/2021 ACCESSION NUMBER(S): [id number] ORDERING CLINICIAN: MAX CHAMPION FINDINGS: PA and [...] Electronically signed by: BASILIO OLIVAREZ MD Normal [facility] TH CT CHEST WO CONTRASTon TH CT CHEST WO CONTRAST STUDY: CT Chest without IV Contrast; 03/11/2021 11:19 AM INDICATION: Sheldon valve, emphysema, shortness of breath. Chronic respiratory failure with hypoxia. COMPARISON: 03/03/2021 XR Chest. ACCESSION NUMBER(S): [id number] ORDERING CLINICIAN: SALINAS RUIZ MD TECHNIQUE: CT [...] Electronically signed by: CARMENZA SANTOS DO Normal [facility] No Panel Informationon 03-03 Please click on [...] lobe. COMPARISON: Chest radiograph 03/03/2021. ACCESSION NUMBER(S): [id number] ORDERING CLINICIAN: AMBER ARROYO FINDINGS: PA chest [...] as stated. This study was interpreted at [place], [place]. Electronically signed by: Ollie HAGER MD Normal [facility] TH CHEST 1 VIEWon 03-03-2021 TH CHEST 1 VIEW Patient Name: BROCK COLEY STUDY: CHEST 1 VIEW; 03/03/2021 5:04 am INDICATION: post LLL endobronchial valve insertion. COMPARISON: 03/02/2021 ACCESSION NUMBER(S): [id number] ORDERING CLINICIAN: ZIYAD WILLINGHAM FINDINGS: AP radiograph [...] Electronically signed by: MANDY JIMENEZ MD Normal [facility] Daily Progress Note-DACRon 0 03-02-2021 Daily Progress Note-DACR Service: DACR Subjective Data: BROCK COLEY is a 65 year old Male who is Hospital Day # 3. Additional Information: Pt seen and examined at bedside. No acute events overnight per RN. Pt companding of some L chest soreness otherwise has no complaints at this time. Objective Data: Objective Information: T PRBPSpO2 Value36.94471115/7993% Date/Time03/02 9: 9: 9: 9: 9:36 Range(36.2C [...] the note. I personally evaluated the patient [id number] Electronic Signatures: Thang Lorenzo) (Signed 02-Mar-2021 21:32) Authored: Note Completion Co-Signer: Objective Data, Assessment and Plan, Note Completion Amber Arroyo (Resident)) (Signed 02-Mar-2021 15:30) Authored: Service, Subjective Data, Objective Data, Assessment and Plan, Note Completion Last Updated: 02-Mar-2021 21:32 by Thang Lorenzo) [facility] Order Reconciliationon 03-02 Order Reconciliation [...] MDI, PRN Shortness of BreathNotes from Pharmacy: [facility] 28-Feb-2021 16:01 Albuterol 90 micrograms/ Inhalation MDI is not required Aspirin Chewable Tablet, ChewableDOSE = 81 mg Oral Daily 28-Feb-2021 16:01 Aspirin Chewable is not required Enoxaparin SubCutaneous (LOVENOX)DOSE = 40 mg SubCutaneous Every 24 Hours 28-Feb-2021 16:01 Enoxaparin SubCutaneous is not required Fluticasone 100 microgram -Salmeterol 50 microgram/ Inh Powder (ADVAIR DISKUS)DOSE = 1 inhalation Every 12 HoursNotes from Pharmacy: [facility] 01-Mar-2021 13:15 Fluticasone 100 microgram [...] inhalation DailyClinician Notes: hospital substitute for home Trelecristian Connieotes from Pharmacy: Substitution for Fluticasone 100 mcg [...] weekly o (more content not included)... Normal [facility] Radiologyon 03-02-2021 XR Chest Single view Normal [facility] Work Phone: [phone] CHEST 1 VIEWon 03-02-2021 TH CHEST 1 VIEW Patient Name: BROCK COLEY STUDY: CHEST 1 VIEW; 03/02/2021 4:23 am INDICATION: AM CXR, daily cxr following endobronchial valve placement, eval for pneumothorax. COMPARISON: 03/01/2021 ACCESSION NUMBER(S): [id number] ORDERING CLINICIAN: COLTON RICH FINDINGS: Portable AP [...] edema. Electronically signed by: BASILIO OLIVAREZ MD [facility] Daily Progress Note-DACRon 0 03-01-2021 Daily Progress Note-DACR Service: DACR Subjective Data: BROCK COLEY is a 65 year old Male who is Hospital Day # 2. -No acute events overnight -Patient feeling well this AM, no dyspnea. Objective Data: Objective Information: T PRBPSpO2 Value36.90299006/5797% Date/Time03/01 14: 14: 14: 14: 14:35 Range(35.7C [...] the following: I personally evaluated the patient Comments/ Additional Findings 65-year-old man with alpha-1 [...] evidence of pneumothorax. Electronic Signatures: Colton Rich ( (Resident)) (Signed 01-Mar-2021 15:18) Authored: Service, Subjective Data, Objective Data, Assessment and Plan, Note Completion Thang Lorenzo) (Signed 01-Mar-2021 16:07) Authored: Note Completion Last Updated: 01-Mar-2021 16:07 by Thang Lorenzo) [facility] Discharge Planning [id number] 03-01-2021 Discharge Planning Note2 Discharge Planning: Needs Prior to Discharge (ex. Home Care Orders, IV/O2 prescriptions) F/u appts Discharge Barriers (ex. Avoidable days, wait guardianship, pt refuse leave) None Planned Dispositionhome Discharge DestinationHome PCP/Next Provider Follow Up Scheduledyes Patient/News Correspondent Stated GoalYes, Home no needs [place] of Choice Explainedno Anticipated Discharge [id number] Discharge Planning 03/01/21 11:30 AM Transitional Care Coordination Progress Note: Patient discussed during interdisciplinary rounds. Team members present: DOMINIQUE and Plan per Medical/Surgical team: Needs to be monitored 3 days after Bronch procedure, monitoring labs and vitals Payer: Medicare Status: Observation Discharge disposition: Home no needs Potential Barriers: None at this time ADOD: 03/04 M. Kusum Eubanks RN BSN Transitional Clinic Charge Nurse [phone] Transitional Clinic Charge Nurse Note: 03/01/2021@ 13:53 Met with patient/ to introduce myself, role and discus discharge planning. Patient lives with his spouse. Independent in all ADL's. Requires no assist devices for ambulation. Denies active home care or home care needs. Will continue to monitor patient for all home going needs. Abbey Portillo RN [facility] [phone] 03/03/21 9:30 AM Transitional Care Coordination Progress Note: Patient discussed during interdisciplinary rounds. Team members present: DOMINIQUE and Plan per Medical/Surgical team: Pt scheduled for priority Tomogram today, monitoring labs and vitals Payer: Medicare Status: Inpatient Discharge disposition: Home no needs Potential Barriers: None at this time ADOD: 03/04 M. Kusum Eubanks RN BSN Transitional Clinic Charge Nurse [phone] Assessment: Discharge Planning Assessment Discharge Planning Assessment Completed byAbbey Portillo RN [facility] [phone] Primary Contact Name and NumberLuci Valles () [phone] Tacho Ruiz DO Preferred Pharmacy Name/LocationKaylee Oneill [...] by Aditya Arnold (ADV CLIN N) Normal [facility] Discharge [id number] 03-01-2 021 Discharge Profile2 Discharge Orders: Anticipated Discharge Date: Anticipated Discharge [id number] DNAR: DNAR Status: none Hospital Course (Home [...] in the next few days. Please call [phone] ( ) if you do not hear back by then to inquire about appointment. Please arrive 15 minutes early and bring photo ID, insurance card, and medication list. If unable to attend appointment, please call to cancel within 24 hours. Electronic Signatures: Colton Rich (Resident)) (Signed 01-Mar-2021 15:54) Authored: Discharge Orders, Hospital Course (Home Care/Gold Form), Gold Form - Mold Cleaner Summary Amber Arroyo ( (Resident)) (Signed 03-Mar-2021 12:15) Authored: Discharge Orders, Provider FINAL REVIEW of Orders, Appointments Last Updated: 03-Mar-2021 12:15 by Amber Arroyo ( (Resident)) Normal [facility] GLUCOSE-POCTon 03-01-2021 Glucose [Mass/Vol] 110 mg/dL High 74 - 99 [facility] Comment on above: Performed By: #### C BCDF #### [facility] [address] [place] [address] Glucose [Mass/Vol] 90 mg/dL Normal 74 - 99 [facility] Comment on above: Performed By: #### C RP #### [facility] [address] [place] [address] Glucose [Mass/Vol] 124 mg/dL High 74 - 99 [facility] Comment on above: Performed By: #### G KATELYN ####[id number] [place] [address] Laboratory - Chemistry and C hemistry - [...] view Normal [facility] Work Phone: [phone] TH CHEST 1 VIEWon 03-01-2021 TH CHEST 1 VIEW Patient Name: BROCK COLEY STUDY: CHEST 1 VIEW; 03/01/2021 7:23 am INDICATION: pneumothorax. COMPARISON: 02/28/2021 ACCESSION NUMBER(S): [id number] ORDERING CLINICIAN: BRANDON EISENBERG FINDINGS: AP radiograph [...] as stated. This study was interpreted at [facility], [place], [place]. Electronically signed by: CAMERON SALMERON MD [facility] Consult-Thoracic and Esophag eal Surgeryon [...] Known Allergies: Objective: Objective Information: T PRBPSpO2 Value36.50507669/5499% Date/Time03/01 6: 6: 6: 6: 6:50 Range(35.7C [...] Eisenberg. Madhuri Nur MD PGY-2 Thoracic Surgery 21250 Consult Status: Consult Order ID: [id number] Attestation: Note Completion: I am a: Resident/Fellow [...] the note. I personally evaluated the patient Electronic Signatures: Madhuri Nur (Resident)) (Signed 01-Mar-2021 09:00) Authored: Service, History of Present Illness, Review Family/Social History and ROS, Allergies, Objective, Assessment/Recommendation s, Note Completion Brandon Eisenberg) (Signed 14-Mar-2021 16:38) Authored: Note Completion Co-Signer: History of Present Illness, Objective, Note Completion Last Updated: 14-Mar-2021 16:38 by Brandon Eisenberg) References: 1. Data Referenced From Consult-Thoracic and Esophageal Surgery 26-William-2021 18:32 Normal [facility] Consult-Thoracic and Esophageal Surgery Service: Service: Thoracic [...] Known Allergies: Objective: Objective Information: T PRBPSpO2 Value36.42558906/7698% Date/Time02/28 18: 18: 18: 18: 18: Range(35.7C - 36.2C ) (63 - 73 ) (18 - 18 ) (132 - 135 )/ (69 - 76 ) (97% - 98% ) As of 26-William-2021 18:26:00, patient is on 4 L/min of [...] for a pneumothorax, and is admitted to [facility]. Thoracic surgery consulted to evaluate and for possible chest tube placement. Recs: -daily CXR -if pt develops a pneumothorax, will place a chest tube -D/W primary team, Dr Ruiz Pt seen and examined; I discussed the pt with Dr Eisenberg Consult Status: Consult Order ID: [id number] Send Provider Communication: Note Recipients: Jeferson Ruiz, - [id number] [] Attestation: Note Completion: Provider/Team Pager #[phone] Electronic Signatures: Gerber Alas (TERE (PHYSICIAN)) (Signed 28-Feb-2021 19:10) Authored: Service, History of Present Illness, Review Family/Social History and ROS, Allergies, Objective, Assessment/Recommendation s, Provider Communication, Note Completion Last Updated: 28-Feb-2021 19:10 by Gerber Alas (TERE (PHYSICIAN)) Normal [facility] No Panel Informationon 02-28 [email or web address] [email or web address] [email or web address]} [facility] Work Phone: [facility] [...] 2 puff(s) inhaled every 4 hours, As [id number]-6117 Albuterol 90 micrograms/ Inhalation MDI (PROVENTIL, VENTOLIN)DOSE = 2 inhalation Every 4 Hours via MDI, PRN Shortness of BreathNotes from Pharmacy: RCRAalbuterol 90 mcg/inh inhalation aerosol with adapter reconciled with the existing inpatient order Albuterol 90 micrograms/ Inhalation MDI Aspirin Low Dose 81 mg oral tablet, chewable 1 orally once a [id number]-2146 Aspirin Chewable Tablet, ChewableDOSE = 81 mg Oral DailyAspirin Low Dose 81 mg oral tablet, chewable reconciled with the existing inpatient order Aspirin Chewable Multiple Vitamins oral tablet 1 tab(s) orally once a [id number]-Lzx-9794 Multivitamin with Minerals TabletDOSE = 1 tablet(s) Oral DailyMultiple Vitamins oral tablet reconciled with the existing inpatient order Multivitamin with Minerals primidone 250 mg oral tablet 1 orally every 12 -Mlz-6925 Primidone Tablet (MYSOLINE)DOSE = 250 mg Oral [...] inhalation powder 1 puff(s) inhaled once a xez69-Orj-2041 Tiotropium 18 micrograms/ Inhalation Capsule (SPIRIVA HANDIHALER)DOSE [...] oral capsule 1 cap(s) orally once a [id number]-Qwc-9124 Reviewed and Held Additional Current Orders Enoxaparin SubCutaneous (LOVENOX)DOSE = 40 mg SubCutaneous Every 24 Hours Melatonin TabletDOSE = 3 mg Oral At Bedtime, PRN Insomnia Normal [facility] Radiologyon 02-28-2021 XR Chest Single view Normal [facility] Work Phone: [phone] CHEST 1 VIEWon 02-28-2021 TH CHEST 1 VIEW Patient Name: BROCK COLEY STUDY: CHEST 1 VIEW; 02/28/2021 3:44 pm INDICATION: s/p LLL endobronchial valve placement x5. COMPARISON: None. ACCESSION NUMBER(S): [id number] ORDERING CLINICIAN: EMERSON LUIS FINDINGS: CARDIOMEDIASTINAL SILHOUETTE: [...] disease. Electronically signed by: Ollie HAGER MD [facility] V/Q QUANTon 02-28-2021 V/Q QUANT Patient Name: BROCK COLEY STUDY: V/Q QUANT; 02/28/2021 9:55 am INDICATION: Emphysema, respiratory failure. 65-year-old male with emphysema in setting alpha-1 antitrypsin deficiency and positive smoking history; pre-op evaluation. COMPARISON: CT chest dated 12/15/2020 ACCESSION NUMBER(S): [id number] ORDERING CLINICIAN: SALINAS RUIZ TECHNIQUE: DIVISION OF [...] as stated. This study was interpreted at [facility], [place], [place]. Electronically signed by: ALETA RAMIREZ MD [facility] Consult (Pulmonary Medicine) on 12-15-2020 Consult (Pulmonary Medicine) Diagnoses/Problems Emphysema/COPD (492.8) (J43.9) Former smoker (V15.82) (Z87.891) Chronic respiratory failure with hypoxia (518.83,799.02) (J96.11) Axiwq-3-ynlpwlbbxtl deficiency (273.4) (E88.01) Pre-op evaluation (V72.84) (Z01.818) [...] proptosis. Hematologic/L (more content not included)... Normal [place] Risk Screeningon 12-15 Fall risk assessment a) No falls within the last year [facility] Work Phone: Falls Risk Screening b) No [facility] Work Phone: [phone] CHEST WO CONTRASTon CT CHEST WO CONTRAST Patient Name: BROCK COLEY STUDY: CT CHEST WO CONTRAST; 12/15/2020 2:15 pm INDICATION: SOB, COPD. COMPARISON: None. ACCESSION NUMBER(S): [id number] ORDERING CLINICIAN: SALINAS RUIZ TECHNIQUE: Helical data [...] as stated. This study was interpreted at [facility], [place], [place]. Electronically signed by: MANDY JIMENEZ MD Normal [facility] Blood Gas Art, with Sarah Baumann oracioWuon 12-06-2020 a/A Ratio Art 60.30 % Normal >=0.80 [place] Comment on above: Performed By: #### 4 [id number] #### [facility] [address] [place] [address] AaDO2 Art 38.4 mmHg High 5.0-15.0 [facility] Comment on above: Performed By: #### 4 [id number] #### [facility] [address] [place] [address] Allens Test Not Applicable Normal [facility] Comment on above: Performed By: #### 4 [id number] #### [facility] [address] [place] [address] Base Excess Arterial 1.0 mmol/L Low >=2.8 [facility] Comment on above: Performed By: #### 4 [id number] #### [facility] [address] [place] [address] cCa2+ Art 4.79 mg/dL Normal 4.40-5.30 [facility] Comment on above: Performed By: #### 4 [id number] #### [facility] [address] [place] [address] cCl- Art 106.0 mmol/L Normal 101.0-111.0 [place] Comment on above: Performed By: #### 4 [id number] #### [facility] [address] [place] [address] cGlu Art 107.0 mg/dL Normal 55.0-199.0 [facility] Comment on above: Performed By: #### 4 [id number] #### [facility] [address] [place] [address] cK+ Art 4.3 mmol/L Normal 3.5-5.3 [facility] Comment on above: Performed By: #### 4 [id number] #### [facility] [address] [place] [address] cLac Art 1.0 mmol/L Low 5.0-14.0 [facility] Comment on above: Performed By: #### 4 [id number] #### [facility] [address] [place] [address] salvage repairer+ Art 141.0 mmol/L Normal 135.0-145.0 [place] Comment on above: Performed By: #### 4 [id number] #### [facility] [address] [place] [address] Drawn by jac Invalid Interpretation Code [facility] Comment on above: Performed By: #### 4 [id number] #### [facility] [address] [place] [address] FCOHb Art 1.0 % Low 1.5-4.9 [facility] Comment on above: Result Comment: Refe rence range Nonsmoker <1.5% Smoker <5.0% Heavy Smoker <9.0% Performed By: #### 4 [id number] #### [facility] [address] [place] [address] FIO2 BG 21 Invalid Interpretation Code [facility] Comment on above: Performed By: #### 4 [id number] #### [facility] [address] [place] [address] FMetHb Art 0.6 % Normal 0.0-1.9 [facility] Comment on above: Performed By: #### 4 [id number] #### [facility] [address] [place] [address] FO2Hb Art 90.4 % Low 93.0-100.0 [facility] Comment on above: Performed By: #### 4 [id number] #### [facility] [address] [place] [address] HCO3 (Bld) [Moles/Vol] 25.1 mmol/L Normal 22.0-26.0 [facility] Comment on above: Performed By: #### 4 [id number] #### [facility] [address] [place] [address] Hemoglobin (Bld) [Mass/Vol] 14.2 g/dL Normal 12.0-17.0 [facility] Comment on above: Performed By: #### 4 [id number] #### [facility] [address] [place] [address] Oxygen saturation in Blood 91.8 % Low 95.0-100.0 [facility] Comment on above: Performed By: #### 4 [id number] #### [facility] [address] [place] [address] P CO2 Arterial 41.4 mmHg Normal 35.0-45.0 [facility] Comment on above: Performed By: #### 4 [id number] #### [facility] [address] [place] [address] P O2 Arterial 58.4 mmHg Low 80.0-100.0 [place] Comment on above: Performed By: #### 4 [id number] #### [facility] [address] [place] [address] pH Arterial 7.405 Normal 7.350-7.450 [facility] Comment on above: Performed By: #### 4 [id number] #### [facility] [address] [place] [id number] Sample Site R Brachial Normal [facility] Comment on above: Performed By: #### 4 [id number] #### [facility] [address] [place] [address] Sample Type Arterial Draw Normal [facility] Comment on above: Performed By: #### 4 [id number] #### [facility] [address] [place] [address] Physician Orderon 12-06-2020 Physician Order [id number]:12 [id number] Normal [facility] Vital Signs Date Time Vital Sign Value Performing Clinician Facility 05-04-2021 13:45-0400 Body height 170.1 cm Jeferson Ruiz Work Phone: [facility] Work Phone: 05-04-2021 13:45-0400 Body mass index (BMI) [Ratio] 39.23 kg/m2 Jeferson Mckay [employer] Work Phone: [facility] Work Phone: 05-04-2021 13:45-0400 Body surface area Derived from formula 2.22 m2 Jeferson Ruiz Work Phone: [facility] Work Phone: 05-04-2021 13:45-0400 Body temperature 97.7 [degF] Jeferson Ruiz Work Phone: [facility] Work Phone: 05-04-2021 13:45-0400 Body weight 113.51 kg Jefersonnelda Ruiz Work Phone: [facility] Work Phone: 05-04-2021 13:45-0400 Diastolic blood pressure 81 mm[Hg] Jeferson Ruiz Work Phone: [facility] Work Phone: 05-04-2021 13:45-0400 Heart rate 105 /min Jeferson Ruiz Work Phone: [facility] Work Phone: 05-04-2021 13:45-0400 Respiratory rate 16 /min Jeferson Ruiz Work Phone: HJ-Xbmklkg-Wzjcgh n [facility] Work Phone: 05-04-2021 13:45-0400 SaO2% (BldA) [Mass fraction] 95 % Jeferson Ruiz Work Phone: BJ-Xxvwbnf-Qnabnx n [facility] Work Phone: 05-04-2021 13:45-0400 Systolic blood pressure 153 mm[Hg] Jeferson Ruiz Work Phone: [facility] Work Phone: 05-04-2021 13:45-0400 0 1 Jeferson Ruiz Work Phone: [facility] Work Phone: Comment on above: [employer] 03-15-2021 06:50-0400 Body temperature 97.88 [degF] Jeferson Ruiz Other Phone: [facility] 03-15-2021 06:50-0400 Diastolic blood pressure 79 mm[Hg] Jeferson Hansa Other Phone: [facility] 03-15-2021 06:50-0400 Heart rate 98 /min Jefersonnelda Hansa Other Phone: [facility] 03-15-2021 06:50-0400 Respiratory rate 18 /min Jefersonnelda Hansa Other Phone: [facility] 03-15-2021 06:50-0400 SaO2% (BldA) [Mass fraction] 93 % Jeferson Hansa Other Phone: [facility] 03-15-2021 06:50-0400 Systolic blood pressure 151 mm[Hg] Jefersonnelda Hansa Other Phone: [facility] 12-15-2020 14:25-0400 Body height 170.1 cm Jeferson P Samsa Work Phone: [facility] Work Phone: 12-15-2020 14:25-0400 Body mass index (BMI) [Ratio] 38.8 kg/m2 Jeferson P Samsa Work Phone: [facility] Work Phone: 12-15-2020 14:25-0400 Body surface area Derived from formula 2.21 m2 Jeferson P Samsa Work Phone: [facility] Work Phone: 12-15-2020 14:25-0400 Body temperature 97.88 [degF] Jeferson P Samsa Work Phone: [facility] Work Phone: 12-15-2020 14:25-0400 Body weight 112.27 kg Jeferson P Samsa Work Phone: [facility] Work Phone: 12-15-2020 14:25-0400 Diastolic blood pressure 82 mm[Hg] Jeferson Woody [employer] Work Phone: [facility] Work Phone: 12-15-2020 14:25-0400 Heart rate 96 /min Jeferson P [employer] Work Phone: [facility] Work Phone: 12-15-2020 14:25-0400 Respiratory rate 17 /min Jeferson P [employer] Work Phone: [facility] Work Phone: 12-15-2020 14:25-0400 SaO2% (BldA) [Mass fraction] 97 % Jeferson P [employer] Work Phone: [facility] Work Phone: 12-15-2020 14:25-0400 Systolic blood pressure 133 mm[Hg] Jeferson P [employer] Work Phone: [facility] Work Phone: 12-15-2020 14:25-0400 0 1 Jeferson P [employer] Work Phone: [facility] Work Phone: Comment on above: [employer] 12-15-2020 14:24-0400 Body temperature 97.88 [degF] Jeferson P [employer] Work Phone: [facility] Work Phone: 12-15-2020 14:24-0400 Heart rate 91 /min Jeferson Woody [employer] Work Phone: [facility] Work Phone: 12-15-2020 14:24-0400 SaO2% (BldA) [Mass fraction] 94 % Jeferson P [employer] Work Phone: [facility] Work Phone: Encounters Encounter Date Encounter Type Care Provider Facility Start: 03-18-2024 End: 03-18-2024 ambulatory ANÍBAL [facility] Start: 03-11-2024 End: 03-11-2024 ambulatory JOSE LUIS HOPPER Not Available Start: 01-29-2024 ambulatory NOREEN NEELYB [facility] Start: 12-20-2023 End: 12-20-2023 ambulatory JOSE LUIS HOPPER Not Available Start: 12-10-2023 End: 12-10-2023 ambulatory [facility] Start: 11-20-2023 End: 11-20-2023 ambulatory [facility] Start: 10-12-2023 End: 10-12-2023 ambulatory TATIANA VACA [facility] Start: 12-06-2022 End: 01-03-2023 ambulatory JEFERSON SAMSA [...] 02-07-2022 End: 02-28-2022 ambulatory JEFERSON SAMSA . Facility: Start: 05-04-2021 FUV, Provider: Salinas Ruiz, Status: Pen, Time: 1:40 PM Jefersonnelda Ruiz Work Phone: [facility] Work Phone: Start: 05-04-2021 Office outpatient vi sit 25 minutes Jefersonnelda Ruiz Work Phone: [facility] Work Phone: Start: 05-04-2021 Patient encounter procedure Jefersonnelda Ruiz Work Phone: [facility] Work Phone: Start: 05-04-2021 PST, Provider: RALPH JENKINS 6TH FLR PFT [facility],PULM, Status: Pen, Time: 10:45 AM Jeferson Ruiz Work Phone: [facility] Work Phone: Start: 05-04-2021 Patient encounter procedure Jefersonnelda Ruiz Work Phone: [facility] [place] [facility] Work Phone: Start: 05-04-2021 PFT, Provider: RALPH JENKINS 6TH FLR PFT RM1,PULM, Status: Pen, Time: 8:45 AM Jefersonnelda Ruiz Work Phone: [facility] Work Phone: Start: 05-03-2021 AUDIT Jeferson P Guillesa Work Phone: [facility] Work Phone: Start: 03-11-2021 End: 03-15-2021 Evaluation and management of inpatient Daryl Kearns [facility] [address] [address] Start: 03-04-2021 AUDIT Jeferson P Samsa Work Phone: [facility] Work Phone: Start: 02-09-2021 AUDIT Jeferson Ruiz Work Phone: [facility] Work Phone: Start: 12-15-2020 Office consultation new/estab patient 80 min Jeferson Ruiz Work Phone: [facility] Work Phone: Patient encounter status Jeferson Ruiz Work Phone: [facility] Work Phone: Procedures Date Procedure Procedure Detail [...] on last dose was 8/3, next dose 8/10Notes from Pharmacy: Administer at room temperature Start: 15-Mar-2021 End: 15-Mar-2022 Ordered: 11-Mar-2021 Max Champion Intent Comments: Weekly on last dose was 8/3, next dose 8/10 [facility] Comment on above: Weekly on l ast dose was 8/3, next dose 8/10 Start: 03-11-2021 End: 03-12-2022 Albuterol 2.5 mg/ 3 mL Nebulizer Soln ; (PROVENTIL)DOSE = 3 mL Inhalation Every 4 Hours via Nebulizer, PRN Shortness of BreathClinician Notes: home regimen Start: 11-Mar-2021 End: 11-Mar-2022 Ordered: 11-Mar-2021 Max Champion Intent Comments: home regimen [facility] Comment on above: home regimen Immunizations Immunization Date Immunization Notes Care Provider Fa sharri 11-16-2020 Pfizer-BioNTDataCert COVI D-19 Vacc 30 MCG/0.3ML Intramuscular Suspension Jeferson Woody Han Work Phone: [facility] Work Phone: 10-25-2020 Pfizer-BioNTech COVI D-19 Vacc 30 MCG/0.3ML Intramuscular Suspension Jeferson Ruiz Work Phone: [facility] Work Phone: 04-07-2020 pneumococcal conjuga te vaccine, 13 valent Jeferson Ruiz Work Phone: [facility] Work Phone: Payers Date Payer Category Payer Private Health Insurance [facility] [id number] 2019 Unknown 1960 Medicare [id number] 1959 Private Health Insurance [facility] [id number] 1954 Unknown [id number] 2.16.84 0.1.097034.3.579.2.593 1954 Unknown [id number] 2.16.84 0.1.821956.3.579.2.593 1954 Unknown [id number] 2.16.84 0.1.359281.3.579.2.593 1954 Unknown [id number] 2.16.84 0.1.933736.3.579.2.593 1954 Unknown [id number] 2.16.84 0.1.092182.3.579.2.593 1954 Unknown [id number] 2.16.84 0.1.007785.3.579.2.593 1954 Unknown [id number] 2.16.84 0.1.611947.3.579.2.593 1954 Unknown [id number] 2.16.84 0.1.284976.3.579.2.593 1954 Unknown [id number] 2.16.84 0.1.750607.3.579.2.593 1954 Unknown [id number] 2.16.84 0.1.703421.3.579.2.593 1954 Unknown [id number] 2.16.84 0.1.391289.3.579.2.593 1954 Unknown [id number] 2.16.84 0.1.219809.3.579.2.593 1954 Unknown [id number] 2.16.84 0.1.057945.3.579.2.593 1954 Unknown [id number] 2.16.84 0.1.410772.3.579.2.1259 1954 Unknown [id number] 2.16.84 0.1.956045.3.579.2.1259 Social History Date Type Detail Facility Former smoker Former smoker [facility] Work Phone: Tobacco smoking consumption unknown [facility] Functional Status Date Assessment Result Facility Functional observable [facility] Mental Status Date Assessment Result Facility 03-11-2021 Cognitive functions 11-Mar-20 2120:20 [facility] Clinical Notes 12-15-2020 to 03-18-2024 <item><item><item><item> Note Date & Type Note Facility 03-18-2024 Note [place] Electrophysiology Consult Note Reason for visit: Tachycardia 03/18/24 Patient had a visit with pulmonary group and a repeat CT showed minimal left lower lung infiltrate improvement. Patient underwent a loop implant on 12/10/2023 this has revealed no further episodes of atrial fibrillation Loop monitor does not reveal any further episodes of A-fib. HPI: Brock Coley is a 69 y.o. year old with past medical history of alpha antitrypsin deficiency, COPD, emphysema, history of cholecystectomy who sees Dr. Kwan for COPD was recently seen in the [place] ED and noted to be in tachycardia. [...] on file Intimate Partner Violence: Unknown (09/27/2023) [place] Safety & Environment Fear of Current or Ex-Partner: Not on file Emotionally Abused: Not on file Physically Abused: Not on file Sexually Abused: Not on file Physically or Sexually Abused: Not on file Depression: Not on file Housing Stability: Not on file Utilities: Not on file Allergies: No Known Allergies Weight: 105kg Visit Vitals BP 132/75 Pulse 64 Ht 1.702 m (5' 7 ) Wt 105 kg (231 lb) SpO2 97% BMI 36.18 kg/m??? Smoking Status Former BSA 2.23 m??? Meds: Current Outpatient Medications on File [...] 81 mg by mouth in the morning. ykkftahahcl-zudofqhnd-sgtpcqsy (Trelegy Ellipta) 100-62.5-25 mcg blister with device Inhalation for 30 Days metoprolol tartrate (Lopressor) 50 mg tablet Take 1 tablet (50 mg) by mouth in the morning and at bedtime. 180 tablet 3 primidone (Mysoline) 50 mg tablet 1 (one) time each day at the same time. topiramate (Topamax) 25 mg tablet Take 50 mg by mouth in the morning and at bedtime. vitamin E, dl,tocopheryl acet, (vitamin E, dl, acetate,) 180 mg (400 unit) capsule Take 400 Units by mouth in the morning. primidone (Mysoline) 250 mg tablet every 12 (twelve) hours. No current facility-administered medications on file prior to visit. ROS: Review of Systems Cardiovascular: Positive for dyspnea on exertion. Respiratory: Positive for shortness of breath. All other systems reviewed and are negative. Physical Exam: Constitutional General Appearance: well-nourished, well-developed, appears stated age Level of Distress: comfortable Psychiatric Mental Status: alert, normal affect Orientation: oriented to time, place, and person Insight: good judgement Eyes Lids and Conjunctivae: non-injected, no xanthelasma ENMT Ears: no lesions on external ear Nose: no lesions on external nose Oropharynx: no cyanosis, no pallor Neck Neck: supple, trachea midline Carotid Arteries: bilateral normal upstroke, no bruits Jugular Veins: normal jugular venous pressure Thyroid: not enlarged Lungs Respiratory Effort: unlabored Chest Exam: normal curvature, no thoracic deformity Auscultation: clear, no wheezing, no rales, no rhonchi Cardiovascular Rate And Rhythm: regular Heart Sounds: normal S1, normal s2, no gallop Syst (more content not included)... [facility] 12-10-2023 Note LOOP IMPLANT PROCEDU RE NOTE DATE OF PROCEDURE: 12/10/23 PERFORMING PHYSICIAN: Dr. Aníbal Hooper INDICATIONS FOR PROCEDURE: 1. SVT/AF surveillance CONSENT: Patient LOCATION: EP lab PROCEDURAL SEDATION: None FLUOROSCOPY TIME: 0min PREPARATION: Preoperative antibiotics was administered. EBL: 5cc SPECIMEN REMOVED: None PROCEDURES PERFORMED: 1. LOOP implant PROCEDURE NOTE: Patient was brought to the EP lab in the post absorptive state. A procedural pause was performed verifying the patient, the procedure. Sterile prep and drape were performed over the left precordium and anesthesia with 1% lidocaine was followed by a small incision was made in the 3rd intercostal space near the sternum on the left using the [employer] tool. The loop recorder was then injected subcutaneously and noted to have good sensing parameters. Technical details of the device as noted below. The skin was then closed with 3-0 absorbable monofilament suture and glue applied to hold the edges together. Tegaderm was applied to cover the wound. The patient appeared to tolerate the procedure well and was returned to the room in stable condition. No complications were immediately observed. Sensin.24mV. IMPRESSION: Successful placement of LOOP implant with excellent sensing parameters. COMPLICATIONS: None RECOMMENDATIONS: 1. Occlusive dressing to be changed after 7 days. 2. Do not wet the incision. Aníbal Hooper MD Cardiac Electrophysiology. [facility] 11-20-2023 Note [facility] Electrophysiology Consult Note Reason for visit: Tachycardia HPI: Brock Coley is a 68 y.o. year old with past medical history of alpha antitrypsin deficiency, COPD, emphysema, history of cholecystectomy who sees Dr. Kwan for COPD was recently seen in the [place] ED and noted to be in tachycardia. [...] on file Intimate Partner Violence: Unknown (09/27/2023) [place] Safety & Environment Fear of Current or [...] 81 mg by mouth in the morning. vnrfmusnsrh-mquyizspz-ptjhykya (Trelegy Ellipta) 100-62.5-25 mcg blister with device [...] alcohol abuse, Hematologic/Ly (more content not included)... [facility] 10-15-2023 Note Event monitor report received for [...] for better heart rate control Tatiana Danica [facility] Available 7a-5pm via Epic Chat Pager [phone] [facility] 10-12-2023 Note Hypertension is unco ntrolled in office 146/84 and was also elevated in ED visit- 155/69 [facility] 10-12-2023 Note [id number]- HTN and age No contra indications for [...] Dr Hooper- EP evaluation and further management [facility] 10-12-2023 Note New patient here to establish care. He is following up from [facility] ED for tachycardia s/p infusion. He sees Dr. Ruiz for pulmonary. He was also seen in [facility] ED in February 2023 for tachycardia as well. Denies chest pain, palpitations, and lightheadedness/syncope. Review of Systems Cardiovascular: Positive for dyspnea on exertion. Respiratory: Positive for shortness of breath. All other systems reviewed and are negative. [facility] 10-12-2023 Note [facility] CARDIOLOGY PROGR ESS NOTE HPI: Brock Coley is a 68 y.o. male here as new pt for tachycardia New patient here to establish care. He is following up from [facility] ED for tachycardia s/p infusion- prolastin every Sun since 06/2020. Heart rates were 130-150 bpm and IVF was given and fast heart rate resolved. He sees Dr. Ruiz for pulmonary. He was also seen in [facility] ED in February 2023 for tachycardia as well. Denies chest pain, palpitations, and lightheadedness/syncope. States he has fast heart February 07, 2023 and was evaluated in ED and was given metoprolol IV and resolved. New patient here to establish care. He is following up from [facility] ED for tachycardia s/p infusion. He sees Dr. Ruiz for pulmonary. He was also seen in [facility] ED in February 2023 for tachycardia as well. Denies chest pain, palpitations, and lightheadedness/syncope. Review of Systems Cardiovascular: Positive for dyspnea on exertion. Respiratory: Positive for shortness of breath. All other systems reviewed and are negative. [facility] ED report 10/03/23 Pt was admitted [...] 81 mg by mouth in the morning. ojfewnelxyg-tuaclruzr-qegfgubv (Trelegy Ellipta) 100-62.5-25 mcg blister with device [...] (CMS/HCC) Event monitor Paroxysmal atrial flutter (CMS/HCC) [id number]- HTN and age No contra indications for [...] RTC after testin (more content not included)... [facility] 10-12-2023 Note Event monitor [facility] 05-04-2021 History of Present illness Narrative [...] family history of lung diseases or cancer [facility] Work Phone: 05-04-2021 History of Present illness [...] Daryl Kearns MD Samsa, Nathan P, - [phone] [] Miriam Marks MD Young, Benjamin, MD Discharge: Summary: Admission Date: .11-Mar-2021 14:26:00 Discharge Date: 15-Mar-2021 Attending Physician at Discharge: Daryl Kearns Admission Reason: Pneumonia Final Discharge Diagnoses: Pneumonia Procedures: none Condition at Discharge: Satisfactory Disposition at Discharge: .Home Vital Signs: T PRBPSpO2 Value36.96824060/7993% Date/Time03/15 4:5003/15 4:5003/15 4:5010 4:508/10 4:50 Range(36.6C - 37C ) (92 - 98 ) (18 - 18 ) (122 - 151 )/ (74 - 79 ) (93% - 95% ) As of 15-Mar-2021 08:19:00, patient is on 4 L/min of oxygen via nasal cannula. Highest temp of 37 C was recorded at 03/14 22:14 Date: Weight/Scale Type:Height: 11-Mar-2021 17:11421.3 kg / fuk470.1 cm Hospital Course: Mr. Brock Coley is a 66 year old Male with vmqdj-3-ljbbvxkuip deficiency (on weekly Prolastin-C, 1000mg IV every [...] Care Physician Scheduled Date/Time: 06-Apr-2021 09:00 Location: [address] [place] [address] Follow-Up Appointment 02: Physician/Dept/Service: Local Proof Operator Reason for Referral: COPD Call to Schedule in: 1 week Location: [facility] Discharge Medications: Home Medication Prolastin-C [...] will follow up with PCP and local head batcher to document resolution of pneumonia with CXR [...] the note. I personally evaluated the patient [id number] Comments/ Additional Findings Greater than 30 minutes was spent planning and arranging for discharge Electronic Signatures: Franki Palacios (Resident)) (Signed 15-Mar-2021 17:30) Authored: Send Summary, Note Completion Daryl Kearns) (Signed 29-Mar-2021 12:40) Authored: Ongoing Care, Note Completion Co-Signer: Send Summary (more content not included)... [facility] 03-15-2021 Hospital Discharge instructions Oxygen:Administer oxygen at 4 via to maintain SpO2 % of.Follow Up Appointment 1:Physician/Dept/Service: Dr. Viraj Maloney Primary Care PhysicianScheduled Date/Time: 06-Apr-2021 09:00Location: [address] [place], [place] [address]Phone Number: [phone]: Please arrive 10-15 minutes early, bring photo ID, insurance cards, discharge summary, and a list of current medications. Please call the office if you need to change this appointment.Follow Up Appointment 2:Physician/Dept/Service: Local PulmonologistReason for Referral: COPDLocation: Erika TOMLIN [facility] 03-11-2021 Note History of Present I llness: HPI: Mr. Brock Coley is a 66 year old Male with xqdgv-9-estswdgprv deficiency (on weekly Prolastin-C, 1000mg IV every [...] Easy Bleeding Objective: Objective Information: T PRBPSpO2 Value36.81061930/7494% Date/Time03/11 15:128 15: 15:128 15:128 15:12 Range(36.3C - 36.3C [...] Lab Results: Results: (more content not included)... [facility] 03-03-2021 Note Send Summary: Discharge Summary Providers: Provider RoleProvider Name ReferringJeferson Ruiz ConsultingPulmonary Consult Brandon Dominique Nurse PractitionerGurinder Guy Nathan P AttendingGifford, Alex Note Recipients: Jeferson Ruiz, DO - [phone] [] Brandon Eisenberg MD Young, Benjamin, MD Discharge: Summary: Admission Date: .28-Feb-2021 17:00:00 Discharge Date: 03-Mar-2021 Attending Physician at Discharge: Thang Lorenzo Admission Reason: endobronchial valve placement(1) Final Discharge Diagnoses: endobronchial valve placement Procedures: Bronchoscopy Condition at Discharge: Satisfactory Disposition at Discharge: .Home Vital Signs: T PRBPSpO2 Value36.67508782/8093% Date/Time03/03 5: 5: 5: 5: 5:00 Range(36.1C - 37.5C ) (76 - 95 ) (16 - 18 ) (124 - 142 )/ (77 - 84 ) (93% - 96% ) As of 03-Mar-2021 05:00:00, patient is on 4 L/min of oxygen via nasal cannula. Highest temp of 37.5 C was recorded at 03/02 21:43 Date: Weight/Scale Type:Height: 03-Mar-2021 05:61357 kg / standing Physical Exam: Constitutional: Well [...] the note. I personally evaluated the patient [id number] Comments/ Additional Findings Uneventful course following placement [...] From Consult-Thoracic and Esophageal Surgery 28-Feb-2021 18:32 [facility] 02-28-2021 Note History of Present I llness: [...] ~17 mmHg SURGICAL HX: Cholecystectomy 2010 at [facility] FAMILY HX: Multiple members- COPD, [...] Mass, Pain Objective: Objective Information: T PRBPSpO2 Value36.49890563/7698% Date/Time02/28 18: 18: 18: 18: 18: Range(35.7C [...] HDS on h (more content not included)... [facility] 12-15-2020 History of Present illness Narrative December [...] of voiceInhalers / Nebulized medications / Oxygen:TrelegyAlbuterolOxygenImmun izations:InfluenzaCOVID-19 - [...] [place], normal valves, RVSP17 mmHgFamily History:+COPD+Leukemia+gastric cancer [employer] Work Phone: Chief complaint Narrative - Reported BROCK COLEY is here for an outpatient consultation.Reason for Visit: Emphysema, BLVR evaluation.Appointment requested by: Dr. Ruiz. [employer] Work Phone: Evaluation note Skin: Warm and dry, [...] awake/alert/oriented x3, no distress, alert and cooperative [facility] Summary Purpose Family History No Family History [...] for Visit: Emphysema, s/p BLVR. * BROCK ZAVALETAER is here for a follow-up visit. * Reason for Visit: Emphysema, s/p BLVR. Additional Source Comments (unrecognized sect ion and content) No Status Records FoundNo Status Records FoundNo Status Records FoundNo Status Records FoundNo Status Records FoundNo Status Records Found INFORMATION SOURCE (unrecogn ized section and content) DATE CREATED AUTHOR [facility]/07/[facility] DATE CREATED AUTHOR AUTHOR'S ORGANIZ ATION 05/20/2021 [employer] DATE CREATED AUTHOR AUTHOR'S ORGANIZ ATION 11/04/2021 [facility] DATE CREATED AUTHOR AUTHOR'S ORGANIZ ATION 01/12/2023 [facility] DATE CREATED AUTHOR AUTHOR'S ORGANIZ ATION 03/13/2024 [facility]ical [facility] DATE CREATED AUTHOR AUTHOR'S ORGANIZ ATION 03/23/2024 [facility] <item> Privacy Markings (unrecogniz ed section [...] BE BASED ON THE PRIMARY CLINICAL RECORDS. [facility] [employer] [facility]. provides no warranty or guarantee of the accuracy or completeness of information in this document.
[2024-03-26 12:39] LABS: Basophils Percent Auto 0.5 % (0.2-2.0); Eosinophils Absolute Auto 0.2 10^3/uL (0.0-0.7); Eosinophils Percent Auto 2.1 % (0.9-7.0); Hematocrit 40.3 % (42.0-54.0); Immature Granulocytes Abs Auto 0.02 10^3/uL (0.00-0.03); Immature Granulocytes Pct Auto 0.2 % (0.0-0.5); Lymphocytes Absolute Auto 3.2 10^3/uL (1.2-3.8); Lymphocytes Percent Auto 36.6 % (20.5-60.0); Mean Corpuscular HGB Conc 34.7 g/dL (29.9-35.2); Mean Corpuscular Hemoglobin 33.3 pg (25.9-34.0); Mean Corpuscular Volume 95.7 fL (80.0-94.0); Mean Platelet Volume 9.9 fL (9.5-13.5); Monocytes Absolute Auto 0.7 10^3/uL (0.3-0.8); Monocytes Percent Auto 8.1 % (1.7-12.0); Neutrophils Absolute Auto 4.6 10^3/uL (1.4-6.5); Neutrophils Percent Auto 52.5 % (43.0-75.0); Platelet Count 304 10^3/uL (150-450); Red Blood Count 4.21 10^6/uL (4.70-6.10); Red Cell Distribution Width 11.9 % (11.0-15.0); White Blood Count 8.7 10^3/uL (4.0-11.0)
[2024-03-26 13:03] LABS: Anion Gap 14.5; BUN Creatinine Ratio 14.7; Calcium 9.5 mg/dL (8.5-10.1); Carbon Dioxide 25.7 mmol/L (21.0-32.0); Chloride 103 mmol/L (98-107); Estimated GFR (African America >60 (>=60); Estimated GFR (Non-African Ame >60 (>=60); Glucose 113 mg/dL (74-106); Potassium 4.2 mmol/L (3.5-5.1); Sodium 139 mmol/L (136-145)
== END 2024-03-26 12:22 | disposition home or self-care (01) ==
LOC: LAB 12:22
PROVIDERS: PCP Nurse Practitioner Family; Visit Provider Internal Medicine Cardiovascular Disease
DX: R94.39 Abnormal result of other cardiovascular function study (principal)
CPT/HCPCS: 36415; 80048; 85025

== ENCOUNTER 2024-04-02 07:29 | Outpatient (RCR) | payer MEDICARE, SELFPAY ==
[2024-03-12 12:50] VITALS: BP 152/70; PULSE 60; O2SAT 95
[2024-03-12] MEDS: PROTEINASE INHIBITOR IV (13:29)
[2024-03-12] MEDS: ALPHA IV (13:29)
[2024-03-19] MEDS: PROTEINASE INHIBITOR IV (13:17)
[2024-03-19] MEDS: ALPHA IV (13:17)
[2024-03-19 13:20] VITALS: BP 140/76; PULSE 60; TEMP 36.5; O2SAT 97
[2024-03-26] MEDS: PROTEINASE INHIBITOR IV (13:00)
[2024-03-26] MEDS: ALPHA IV (13:00)
[2024-03-26 13:55] VITALS: BP 123/71; PULSE 69; TEMP 36.9; O2SAT 97
[2024-04-02 12:56] VITALS: PULSE 88; TEMP 36.3; O2SAT 98
[2024-04-02] MEDS: PROTEINASE INHIBITOR IV (13:16)
[2024-04-02] MEDS: ALPHA IV (13:16)
== END 2024-04-05 23:59 | disposition home or self-care (01) ==
LOC: INF 07:29
PROVIDERS: PCP Nurse Practitioner Family; Visit Provider Internal Medicine
DX: R94.39 Abnormal result of other cardiovascular function study (principal); E88.01 Alpha-1-antitrypsin deficiency; J43.2 Centrilobular emphysema
CPT/HCPCS: 36415; 80048; 85025; 96365; J0256

== ENCOUNTER 2024-04-30 07:36 | Outpatient (RCR) | payer MEDICARE, SELFPAY ==
[2024-04-09 12:54] VITALS: BP 154/78; PULSE 65; TEMP 36.5; O2SAT 95
--- NOTE | 2024-04-09 13:17 | PC.NURSE ---
1254: Pt. to [facility] amb. with portable O2 in place. Weight obtained. Seated in recliner. VSS. O2 to wall unit at 4L n/c. IV initiated at this time, pt. tolerated without c/o. Denies needs.
[2024-04-09] MEDS: ALPHA IV (13:23)
[2024-04-09] MEDS: PROTEINASE INHIBITOR IV (13:23)
--- NOTE | 2024-04-09 14:00 | PC.NURSE ---
1355: Prolastin infusion completed without s&s of adverse reaction. IV d/c'd, pressure to site. D/c'd amb. to home.
[2024-04-16] MEDS: PROTEINASE INHIBITOR IV (13:29)
[2024-04-16] MEDS: ALPHA IV (13:29)
[2024-04-16 13:32] VITALS: BP 111/69; PULSE 68; TEMP 36.1; O2SAT 97
[2024-04-23 12:59] VITALS: BP 114/67; PULSE 69; TEMP 36.7; O2SAT 96
[2024-04-23] MEDS: ALPHA IV (13:20)
[2024-04-23] MEDS: PROTEINASE INHIBITOR IV (13:20)
[2024-04-30 12:55] VITALS: BP 134/70; PULSE 70; TEMP 36.8; O2SAT 95
[2024-04-30] MEDS: PROTEINASE INHIBITOR IV (13:33)
[2024-04-30] MEDS: ALPHA IV (13:33)
== END 2024-05-05 23:59 | disposition home or self-care (01) ==
LOC: INF 07:36
PROVIDERS: PCP Nurse Practitioner Family; Visit Provider Internal Medicine
DX: E88.01 Alpha-1-antitrypsin deficiency (principal); J43.2 Centrilobular emphysema
CPT/HCPCS: 96365; J0256

== ENCOUNTER 2024-05-08 11:44 | Outpatient (OUT) | payer MEDICARE, SELFPAY ==
--- OUTSIDE RECORDS SUMMARY | 2024-05-08 11:56 | XMS_ITS | CCD ---
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 Normal 98 - 107 [facility] Comment on above: Performed By: #### C BCDF #### [facility] [address] [place] [address] Creatinine [Mass/Vol] 0.96 mg/dL Normal 0.50 - 1.30 [facility] Comment on above: Performed By: #### C BCDF #### [facility] [address] [place] [address] GFR- AM. >60 Normal >60 [facility] Comment on above: Result Comment: CALC ULATIONS OF ESTIMATED GFR ARE PERFORMED USING THE MDRD STUDY EQUATION FOR THE IDMS-TRACEABLE CREATININE METHODS. CLIN CHEM 2007;53:766-72 Performed By: #### C BCDF #### [facility] [address] [place] [address] GFR-NON AM. >60 Normal >60 [facility] Comment on above: Performed By: #### C BCDF #### [facility] [address] [place] [address] Glucose [Mass/Vol] 108 mg/dL High 74 - 99 [facility] Comment on above: Performed By: #### C BCDF #### [facility] [address] [place] [address] HCO3 (Bld) [Moles/Vol] 22 mmol/L Normal 21 - 32 [facility] Comment on above: Performed By: #### C BCDF #### [facility] [address] [place] [address] Potassium [Moles/Vol] 4.7 mmol/L Normal 3.5 - 5.3 [facility] Comment on above: Performed By: #### C BCDF #### [facility] [address] [place] [address] Protein [Mass/Vol] 6.6 g/dL Normal 6.4 - 8.2 [facility] Comment on above: Performed By: #### C BCDF #### [facility] [address] [place] [address] Sodium [Moles/Vol] 135 mmol/L Low 136 - 145 [facility] Comment on above: Performed By: #### C BCDF #### [facility] [address] [place] [address] Urea nitrogen [Mass/Vol] 16 mg/dL Normal 6 - 23 [facility] Comment on above: Performed By: #### C BCDF #### [facility] [address] [place] [address] Daily Progress Note-Medicine on 03-13-2021 Daily Progress Note-Medicine Service: Medicine Subjective Data: BROCK COLEY is a 66 year old Male who is Hospital Day # 3. Objective Data: Objective Information: T PRBPSpO2 [id number]/6294% Date/Time03/13 13:5403/13 13:5403/13 13:5403/13 13: 13:54 Range(35.7C - 36.9C [...] is a 66 year old Male with tvqwl-9-jhysilgvmz deficiency (on weekly Prolastin-C, 1000mg IV every [...] to re-assess tomorrow. Below plan not updated #Nlkyn-1-tzrxsprvckn deficiency #Emphysema with severe copd s/p LLL [...] the note. I personally evaluated the patient [id number] Comments/ Additional Findings Seen on rounds, reported [...] Updated: 13-Mar-2021 23:14 by Miriam Marks) Normal [facility] LEGIONELLA AG, URINEon 03-13 LEGIONELLA AG, URINE Negative Normal Negative [facility] Comment on above: Result Comment: NEGA TIVE FOR LEGIONELLA PNEUMOPHILIA SEROGROUP 1 ANTIGEN IN URINE, SUGGESTING NO CURRENT OR PAST INFECTION. Performed By: #### C BCDF #### [facility] [address] [place] [address] S.PNEUMONIAE AG,Uon 03-13-20 21 S.PNEUMONIAE AG,U Negative Normal Negative [facility] Comment on above: Result Comment: Pres umptive negative for pneumococcal pneumonia, suggesting no current or recent infection. Infection due to S. pneumoniae cannot be ruled out since the antigen present in the sample may be below the detection limit of the test. Performed By: #### S PNAG #### [facility] [address] [place] [address] TH CHEST 1 VIEWon 03-13-2021 TH CHEST 1 VIEW Patient Name: BROCK COLEY STUDY: CHEST 1 VIEW; 03/13/2021 6:08 am INDICATION: desat. COMPARISON: 03/12/2021 ACCESSION NUMBER(S): [id number] ORDERING CLINICIAN: ANNA MAN FINDINGS: AP radiograph [...] Electronically signed by: BASILIO OLIVAREZ MD Normal [facility] VANCOMYCIN,TROUGHon 03-13-20 21 VANCOMYCIN,TROUGH 12.8 ug/mL Normal 5.0 - 20.0 [facility] Comment on above: Result Comment: [...] 2009. Performed By: #### V ANCT #### [facility] [address] [place] [address] C-REACTIVE PROTEINon 021 C-REACTIVE PROTEIN 11.18 mg/dL Abnormal [facility] Comment on above: Result Comment: REF VALUE < 1.00 Performed By: #### C RP #### [facility] [address] [place] [address] CBC AND DIFFERENTIALon 03-12 % AUTOMATED IMMATURE GRAN 0.5 % Normal 0.0 - 0.9 [facility] Comment on above: Result Comment: Suellen ture Granulocyte Count (IG) includes promyelocytes, myelocytes and metamyelocytes but does not include bands. Percent differential counts (%) should be interpreted in the context of the absolute cell counts (cells/L). Performed By: #### C BCDF #### [facility] [address] [place] [address] Basophils (Bld) [#/Vol] 0.03 10*3/uL Normal 0.00 - 0.10 [facility] Comment on above: Performed By: #### C BCDF #### [facility] [address] [place] [address] Basophils/100 WBC (Bld) 0.3 % Normal 0.0 - 2.0 [facility] Comment on above: Performed By: #### C BCDF #### [facility] [address] [place] [address] Eosinophils (Bld) [#/Vol] 0.15 10*3/uL Normal 0.00 - 0.70 [facility] Comment on above: Performed By: #### C BCDF #### [facility] [address] [place] [address] Eosinophils/100 WBC (Bld) 1.6 % Normal 0.0 - 6.0 [facility] Comment on above: Performed By: #### C BCDF #### [facility] [address] [place] [address] Erythrocyte distribution width (RBC) [Ratio] 12.1 % Normal 11.5 - 14.5 [facility] Comment on above: Performed By: #### C BCDF #### [place] [address] [place] [address] Hematocrit (Bld) [Volume fraction] 37.4 % Low 41.0 - 52.0 [facility] Comment on above: Performed By: #### C BCDF #### [place] [address] [place] [address] Hemoglobin (Bld) [Mass/Vol] 13.0 g/dL Low 13.5 - 17.5 [facility] Comment on above: Performed By: #### C BCDF #### [facility] [address] [place] [address] Lymphocytes (Bld) [#/Vol] 2.27 10*3/uL Normal 1.20 - 4.80 [facility] Comment on above: Performed By: #### C BCDF #### [facility] [address] [place] [address] Lymphocytes/100 WBC (Bld) 24.0 % Normal 13.0 - 44.0 [facility] Comment on above: Performed By: #### C BCDF #### [facility] [address] [place] [address] MCHC (RBC) [Mass/Vol] 34.8 g/dL Normal 32.0 - 36.0 [facility] Comment on above: Performed By: #### C BCDF #### [facility] [address] [place] [address] MCV (RBC) [Entitic vol] 97 fL Normal 80 - 100 [facility] Comment on above: Performed By: #### C BCDF #### [facility] [address] [place] [address] Monocytes (Bld) [#/Vol] 0.95 10*3/uL Normal 0.10 - 1.00 [facility] Comment on above: Performed By: #### C BCDF #### [facility] [address] [place] [address] Monocytes/100 WBC (Bld) 10.1 % Normal 2.0 - 10.0 [facility] Comment on above: Performed By: #### C BCDF #### [facility] [address] [place] [address] Neutrophils (Bld) [#/Vol] 6.00 10*3/uL Normal 1.20 - 7.70 [facility] Comment on above: Performed By: #### C BCDF #### [facility] [address] [place] [address] Neutrophils/100 WBC (Bld) 63.5 % Normal 40.0 - 80.0 [facility] Comment on above: Performed By: #### C BCDF #### [facility] [address] [place] [address] NUCLEATED RBC 0.0 /100 WBC Normal 0.0-0.0 [facility] Comment on above: Performed By: #### C BCDF #### [facility] [address] [place] [address] Platelets (Bld) [#/Vol] 406 10*3/uL Normal 150 - 450 [facility] Comment on above: Performed By: #### C BCDF #### [facility] [address] [place] [address] RBC 3.84 x10E12/L Low 4.50 - 5.90 [facility] Comment on above: Performed By: #### C BCDF #### [facility] [address] [place] [address] WBC (Bld) [#/Vol] 9.5 10*3/uL Normal 4.4 - 11.3 [facility] Comment on above: Performed By: #### C BCDF #### [facility] [address] [place] [address] Daily Progress Note-Medicine on 03-12-2021 Daily Progress Note-Medicine Service: Medicine Subjective Data: BROCK COLEY is a 66 year old Male who is Hospital Day # 2. Objective Data: Objective Information: T PRBPSpO2 [id number]/8491% Date/Time03/12 13: 13: 13: 13: 13:18 Range(35.5C [...] 2021 8:02AM] Assessment and Plan: Code Status: Candy StatusFull Code Assessment: Mr. Brock Coley is a 66 year old Male with zurbk-2-cxhgoinsfo deficiency (on weekly Prolastin-C, 1000mg IV every [...] to 2-3 L Below plan not updated #Uzfmu-3-obgqzyprnlt deficiency #Emphysema with severe copd s/p LLL EBV placement for LVRS #Chronic hypoxic respiratory failure #Acute pneumonia of left upper lobe s/p failed Levaquin vs possible re-expansion injury - treating with Vanc/Zosyn - maylinbs - Pulmonary following, appreciate reccs: -Obtain sputum [...] the note. I personally evaluated the patient [id number] Comments/ Additional Findings Please refer to H&P Electronic Signatures: Anna Johnson (Resident)) (Signed 12-Mar-2021 14:40) Authored: Subjective (more content not included)... Normal [facility] LEGIONELLA AG, URINEon 03-12 Lab Specimen Source Normal [facility] Comment on above: Performed By: #### C BCDF #### [facility] [address] [place] [address] MAGNESIUMon 03-12-2021 Magnesium [Mass/Vol] 2.24 mg/dL Normal 1.60 - 2.40 [facility] Comment on above: Performed By: #### M G #### [facility] [address] [place] [address] RENAL FUNCTION PANELon 03-12 Albumin [Mass/Vol] 3.9 g/dL Normal 3.4 - 5.0 [facility] Comment on above: Performed By: #### R ENAL #### [facility] [address] [place] [address] Anion gap [Moles/Vol] 13 mmol/L Normal 10 - 20 [facility] Comment on above: Performed By: #### R ENAL #### [facility] [address] [place] [address] Calcium [Mass/Vol] 9.3 mg/dL Normal 8.6 - 10.6 [facility] Comment on above: Performed By: #### R ENAL #### [facility] [address] [place] [address] Chloride [Moles/Vol] 100 mmol/L Normal 98 - 107 [facility] Comment on above: Performed By: #### R ENAL #### [facility] [address] [place] [address] Creatinine [Mass/Vol] 0.83 mg/dL Normal 0.50 - 1.30 [facility] Comment on above: Performed By: #### R ENAL #### [facility] [address] [place] [address] GFR- AM. >60 Normal >60 [facility] Comment on above: Result Comment: CALC ULATIONS OF ESTIMATED GFR ARE PERFORMED USING THE MDRD STUDY EQUATION FOR THE IDMS-TRACEABLE CREATININE METHODS. CLIN CHEM 2007;53:766-72 Performed By: #### R ENAL #### [facility] [address] [place] [address] GFR-NON AM. >60 Normal >60 [facility] Comment on above: Performed By: #### R ENAL #### [facility] [address] [place] [address] Glucose [Mass/Vol] 114 mg/dL High 74 - 99 [facility] Comment on above: Performed By: #### R ENAL #### [facility] [address] [place] [address] HCO3 (Bld) [Moles/Vol] 25 mmol/L Normal 21 - 32 [facility] Comment on above: Performed By: #### R ENAL #### [facility] [address] [place] [address] Phosphate [Mass/Vol] 4.0 mg/dL Normal 2.5 - 4.9 [facility] Comment on above: Result Comment: The performance characteristics of phosphorus testing in heparinized plasma have been validated by the individual laboratory site where testing is performed. Testing on heparinized plasma is not approved by the FDA; however, such approval is not necessary. Performed By: #### R ENAL #### [facility] [address] [place] [address] Potassium [Moles/Vol] 4.2 mmol/L Normal 3.5 - 5.3 [facility] Comment on above: Performed By: #### R ENAL #### [facility] [address] [place] [address] Sodium [Moles/Vol] 134 mmol/L Low 136 - 145 [facility] Comment on above: Performed By: #### R ENAL #### [facility] [address] [place] [address] Urea nitrogen [Mass/Vol] 15 mg/dL Normal 6 - 23 [facility] Comment on above: Performed By: #### R ENAL #### [facility] [address] [place] [address] RESPIRATORY CULT./SM,LOWERon 03-12-2021 RESPIRATORY CULT./SM,LOWER PATIENT: BROCK COLEY LOCATION: [address] BILL#: [id number] : 53 AGE: SEX: M ORDERED BY: ANNA JOHNSON SOURCE: SPUTUM COLLECTED: 03/12/21 13:04 ANTIBIOTICS AT DIO.: RECEIVED : 03/12/21 15:41 SITE: R E S U L T S GRAM STAIN FINAL 03/12/21 16:45 GRAM STAIN INDICATES SPECIMEN CONSISTS OF LOWER RESPIRATORY TRACT SECRETIONS. NO PREDOMINANT ORGANISM. RESPIRATORY CULT./SM,LOWER FINAL 03/14/21 11:59 NORMAL THROAT MELANIE. Normal [facility] Comment on above: Performed By: #### R ESPL #### [facility] [address] [place] [address] TH CHEST 1 VIEWon 03-12-2021 TH CHEST 1 VIEW Patient Name: BROCK COLEY STUDY: CHEST 1 VIEW; 03/12/2021 3:53 am INDICATION: COPD with HAP. COMPARISON: 03/11/2021 ACCESSION NUMBER(S): [id number] ORDERING CLINICIAN: MAX CHAMPION FINDINGS: AP radiograph [...] Electronically signed by: BASILIO OLIVAREZ MD Normal [facility] Admission Risk Screen - Adul ton 03-11-2021 [...] AlertFor Ebola-like Symptoms: Isolate Patient and Notify Provider/Hog Dropper For Contact: Notify Provider/Hog Dropper Advance Directive: Advance Directive/DNRno Advance Directive Information [...] Learning Preferencesverbal instruction Cultural Considerationsnone Developmental Considerationsnone Anglican Considerationsnone Learning Assessment (Other Learner): Other learner availableyes... Learnerspouse Factors Influencing Readiness to Learnnone Factors that Impact Ability to Learnnone Devices/Methods Used to Communicatenone Learning Preferencesverbal instruction Cultural Considerationsnone Developmental Considerationsnone Anglican Considerationsnone Depression Screen: During the past month, have you often been bothered by feeling down, depressed or hopelessno During the past month, have you often had little interest or pleasure in doing thingsno Have you had any thoughts of harming anyone elseno Vaughan Suicide: Risk Screen Not Applicable/Able to Answerable to be screened In the Past Month: Have you wished you were or could go to sleep and not wake upno In the Past Month: Have you had any actual thoughts of killing yourselfno Lifetime: Have you ever done, started to do, or prepared to do anything to end your lifeno Vaughan Suicide Risknegative Adult Nutrition Screen: Have you [...] = Non (more content not included)... Normal [facility] BLOOD CULTURE, BACTERIALon 0 03-11-2021 BLOOD CULTURE, BACTERIAL PATIENT: BROCK COLEY LOCATION: [address] BILL#: [id number] : 53 AGE: SEX: M ORDERED BY: MIRIAM MARKS SOURCE: Blood COLLECTED: 03/11/21 17:20 ANTIBIOTICS AT DIO.: RECEIVED : 03/11/21 18:34 SITE: PERIPHERAL R E S U L T S BLOOD CULTURE, BACTERIAL FINAL 03/16/21 19:42 No Growth at 1 days No Growth at 2 days No Growth at 3 days No Growth at 4 days NO GROWTH - FINAL REPORT Normal [facility] Comment on above: Performed By: #### C BCDF #### [facility] [address] [place] [address] BLOOD CULTURE, BACTERIAL PATIENT: BROCK COLEY LOCATION: [address] BILL#: [id number] : 53 AGE: SEX: M ORDERED BY: MIRIAM MARKS SOURCE: Blood COLLECTED: 03/11/21 17:19 ANTIBIOTICS AT DIO.: RECEIVED : 03/11/21 18:34 SITE: PERIPHERAL R E S U L T S BLOOD CULTURE, BACTERIAL FINAL 03/16/21 19:42 No Growth at 1 days No Growth at 2 days No Growth at 3 days No Growth at 4 days NO GROWTH - FINAL REPORT Normal [facility] Comment on above: Performed By: #### C BCDF #### [facility] [address] [place] [address] C-REACTIVE PROTEINon 021 C-REACTIVE PROTEIN 11.84 mg/dL Abnormal [facility] Comment on above: Result Comment: REF VALUE < 1.00 Performed By: #### C RP #### [facility] [address] [place] [address] CBC AND DIFFERENTIALon 03-11 % AUTOMATED IMMATURE GRAN 0.3 % Normal 0.0 - 0.9 [facility] Comment on above: Result Comment: Suellen ture Granulocyte Count (IG) includes promyelocytes, myelocytes and metamyelocytes but does not include bands. Percent differential counts (%) should be interpreted in the context of the absolute cell counts (cells/L). Performed By: #### C RP #### [facility] [address] [place] [address] Basophils (Bld) [#/Vol] 0.03 10*3/uL Normal 0.00 - 0.10 [facility] Comment on above: Performed By: #### C RP #### [facility] [address] [place] [address] Basophils/100 WBC (Bld) 0.3 % Normal 0.0 - 2.0 [facility] Comment on above: Performed By: #### C RP #### [facility] [address] [place] [address] Eosinophils (Bld) [#/Vol] 0.10 10*3/uL Normal 0.00 - 0.70 [facility] Comment on above: Performed By: #### C RP #### [facility] [address] [place] [address] Eosinophils/100 WBC (Bld) 1.0 % Normal 0.0 - 6.0 [facility] Comment on above: Performed By: #### C RP #### [facility] [address] [place] [address] Erythrocyte distribution width (RBC) [Ratio] 12.1 % Normal 11.5 - 14.5 [facility] Comment on above: Performed By: #### C RP #### [facility] [address] [place] [address] Hematocrit (Bld) [Volume fraction] 39.3 % Low 41.0 - 52.0 [facility] Comment on above: Performed By: #### C RP #### [facility] [address] [place] [address] Hemoglobin (Bld) [Mass/Vol] 13.5 g/dL Normal 13.5 - 17.5 [facility] Comment on above: Performed By: #### C RP #### [facility] [address] [place] [address] Lymphocytes (Bld) [#/Vol] 2.00 10*3/uL Normal 1.20 - 4.80 [facility] Comment on above: Performed By: #### C RP #### [facility] [address] [place] [address] Lymphocytes/100 WBC (Bld) 20.6 % Normal 13.0 - 44.0 [facility] Comment on above: Performed By: #### C RP #### [facility] [address] [place] [address] MCHC (RBC) [Mass/Vol] 34.4 g/dL Normal 32.0 - 36.0 [facility] Comment on above: Performed By: #### C RP #### [facility] [address] [place] [address] MCV (RBC) [Entitic vol] 98 fL Normal 80 - 100 [facility] Comment on above: Performed By: #### C RP #### [facility] [address] [place] [address] Monocytes (Bld) [#/Vol] 0.98 10*3/uL Normal 0.10 - 1.00 [facility] Comment on above: Performed By: #### C RP #### [facility] [address] [place] [address] Monocytes/100 WBC (Bld) 10.1 % Normal 2.0 - 10.0 [facility] Comment on above: Performed By: #### C RP #### [facility] [address] [place] [address] Neutrophils (Bld) [#/Vol] 6.59 10*3/uL Normal 1.20 - 7.70 [facility] Comment on above: Performed By: #### C RP #### [facility] [address] [place] [address] Neutrophils/100 WBC (Bld) 67.7 % Normal 40.0 - 80.0 [facility] Comment on above: Performed By: #### C RP #### [facility] [address] [place] [address] NUCLEATED RBC 0.0 /100 WBC Normal 0.0-0.0 [facility] Comment on above: Performed By: #### C RP #### [facility] [address] [place] [address] Platelets (Bld) [#/Vol] 393 10*3/uL Normal 150 - 450 [facility] Comment on above: Performed By: #### C RP #### [facility] [address] [place] [address] RBC 4.01 x10E12/L Low 4.50 - 5.90 [facility] Comment on above: Performed By: #### C RP #### [facility] [address] [place] [address] WBC (Bld) [#/Vol] 9.7 10*3/uL Normal 4.4 - 11.3 [facility] Comment on above: Performed By: #### C RP #### [facility] [address] [place] [address] COMPREHENSIVE PANELon 2020 Albumin [Mass/Vol] 4.2 g/dL Normal 3.4 - 5.0 [facility] Comment on above: Performed By: #### C BCDF #### [facility] [address] [place] [address] ALP [Catalytic activity/Vol] 93 U/L Normal 33 - 136 [facility] Comment on above: Performed By: #### C BCDF #### [facility] [address] [place] [address] ALT [Catalytic activity/Vol] 82 U/L High 10 - 52 [facility] Comment on above: Result Comment: Oksana ents treated with Sulfasalazine may generate falsely decreased results for ALT. Performed By: #### C BCDF #### [facility] [address] [place] [address] Anion gap [Moles/Vol] 17 mmol/L Normal 10 - 20 [facility] Comment on above: Performed By: #### C BCDF #### [facility] [address] [place] [address] AST [Catalytic activity/Vol] 37 U/L Normal 9 - 39 [facility] Comment on above: Performed By: #### C BCDF #### [facility] [address] [place] [address] Bilirubin [Mass/Vol] 0.5 mg/dL Normal 0.0 - 1.2 [facility] Comment on above: Performed By: #### C BCDF #### [facility] [address] [place] [address] Calcium [Mass/Vol] 9.6 mg/dL Normal 8.6 - 10.6 [facility] Comment on above: Performed By: #### C BCDF #### [facility] [address] [place] [address] Chloride [Moles/Vol] 101 mmol/L Normal 98 - 107 [facility] Comment on above: Performed By: #### C BCDF #### [facility] [address] [place] [address] Creatinine [Mass/Vol] 0.68 mg/dL Normal 0.50 - 1.30 [facility] Comment on above: Performed By: #### C BCDF #### [facility] [address] [place] [address] GFR- AM. >60 Normal >60 [facility] Comment on above: Result Comment: CALC ULATIONS OF ESTIMATED GFR ARE PERFORMED USING THE MDRD STUDY EQUATION FOR THE IDMS-TRACEABLE CREATININE METHODS. CLIN CHEM 2007;53:766-72 Performed By: #### C BCDF #### [facility] [address] [place] [address] GFR-NON AM. >60 Normal >60 [facility] Comment on above: Performed By: #### C BCDF #### [facility] [address] [place] [address] Glucose [Mass/Vol] 100 mg/dL High 74 - 99 [facility] Comment on above: Performed By: #### C BCDF #### [facility] [address] [place] [address] HCO3 (Bld) [Moles/Vol] 23 mmol/L Normal 21 - 32 [facility] Comment on above: Performed By: #### C BCDF #### [facility] [address] [place] [address] Potassium [Moles/Vol] 4.7 mmol/L Normal 3.5 - 5.3 [facility] Comment on above: Performed By: #### C BCDF #### [facility] [address] [place] [address] Protein [Mass/Vol] 7.1 g/dL Normal 6.4 - 8.2 [facility] Comment on above: Performed By: #### C BCDF #### [facility] [address] [place] [address] Sodium [Moles/Vol] 136 mmol/L Normal 136 - 145 [facility] Comment on above: Performed By: #### C BCDF #### [facility] [address] [place] [address] Urea nitrogen [Mass/Vol] 15 mg/dL Normal 6 - 23 [facility] Comment on above: Performed By: #### C BCDF #### [facility] [address] [place] [address] Clinical Event Note-Senior Vish marte noteon 03-11-2021 [...] Last Updated: 11-Mar-2021 17:37 by Max Champion (Resident)) Normal [facility] Consult-Pulmonologyon 2020 Consult-Pulmonology Service: Service: Pulmonology Consult: [...] ~17 mmHg SURGICAL HX: Cholecystectomy 2009 at [facility] FAMILY HX: Multiple members- COPD, leukemia, gastric [...] his next dose seen and d/w Dr Hejal Pulm will follow. Attestation: Note Completion: I am [...] the note. I personally evaluated the patient [id number] (more content not included)... Normal [facility] Discharge Planning Vcdm1rq 0 03-11-2021 Discharge Planning Note2 Discharge Planning: Needs Prior to Discharge (ex. Home Care Orders, IV/O2 prescriptions) f/u appts Planned Dispositionhome Discharge DestinationHome with spouse AMPAC < 20no Anticipated Discharge [id number]-Fzq-6956 Discharge Planning Admission Note: 03/11/21 14:55 Pt admitted from his pulmonologists office. He presented with intermittent fevers and a decreased pulse ox with activity. Pt's vital signs are stable and he is afebrile. He has no c/o pain. Awaiting MD orders. Lisa Hernandez RN. document analyst Note: 03/15/21 1400 Pt dc home with . Pt given meds to bed and remains on 4L 02. Pt educated on discharge instructions and follow up appointment. Stephania Tran RN Discharge Barriersnone Assessment: Discharge Planning Assessment [id number]-7597 Discharge Planning Assessment Completed byVaishali Siddiqui RNhot die press feeder Coordinator Primary Contact Name and NumberDarlene (spouse)-[phone] Stated Reason for AdmissionI was having fevers at home.(1) Arrived Fromphysician office (1) Marta Ruiz- modeling instructor PCP Last Date Seen04/2020 [facility] [place] Medication Adherence/Afford/Obtainye s InsuranceMedi A/B/Aetna Sr Supp Lives Withspouse; pt's phone #: [phone] Living Arrangementshouse(1) Recent Falls/ Injury/ Need Assist with Ambulationdenies Prior Level of Functioningindependent with ADLS Equipment Currently Used at HomeN/A Home Care Agency/Support ServicesN/A DME Supplier Name/NumberN/A Home O2/BiPAP/CPAPHome O2 O2 LPM4L [place] [facility] [phone] Diabetic/Supplies NeededN/A Hemodialysis ScheduleN/A Resource/Environmental Concernsnone(1) Social [...] to follow for discharge needs. Vaishali Siddiqui RNhot die press feeder Coordinator Discharge Documentation: Discharge/Transfer Date/Micw24-Ouv-6168 Electronic Signatures: Lisa Hernandez (RN) (Signed 11-Mar-2021 18:00) Authored: Discharge Planning, Assessment, Discharge Documentation Vaishali Siddiqui (CLIN COOR) (Signed 14-Mar-2021 15:04) Authored: Discharge Planning, Assessment Stephania Tran (RN) (Signed 15-Mar-2021 14:29) Authored: Discharge Planning Last Updated: 15-Mar-2021 14:29 by Stephania Tran (RN) References: 1. Data Referenced From Patient Profile - Adult v2 11-Mar-2021 17:52 Normal [facility] Discharge [id number] 021 Discharge Profile2 Discharge Orders: Anticipated Discharge Date: Anticipated Discharge Vhjw51-Dbe-6278 Anticipated Discharge Time13:38 DNAR: DNAR Status: none Oxygen: Administer oxygen at 4 via to maintain SpO2 % of. Hospital Course (Home Care/Gold Form): Hospital Course: Hospital Course: include significant abnormal lab values Mr. Brock Coley is a 66 year old Male with avtmr-8-abqndktuyz deficiency (on weekly Prolastin-C, 1000mg IV every [...] 15-Mar-2021 13:39:15 Appointments: Follow-Up Appointment 01: Physician/Dept/ServiceDr. [facility]ician Scheduled Date/Odop10-Cym-0706 09:[address] [place] [address] Phone [phone] CommentsPlease arrive 10-15 minutes early, bring photo ID, insurance cards, discharge summary, and a list of current medications. Please call the office if you need to change this appointment. 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 Reason for ReferralCOPD Call to Schedule in1 week [facility] Electronic Signatures: Max Champion ( (Resident)) (Signed 15-Mar-2021 13:39) Authored: Discharge Orders, Hospital Course (Home Care/Gold Form), Provider FINAL REVIEW of Orders, Appointments Franki Palacios (Resident)) (Signed 15-Mar-2021 08:29) Authored: Discharge Orders, Hospital Course (Home Care/Gold Form), Provider FINAL REVIEW of Orders Arleth Solares ( (Resident)) (Signed 11-Mar-2021 20:21) Authored: Discharge Orders, Hospital Course (Home Care/Gold Form), Gold Form - Mover Summary Alyson Cao (PT ACC REP) (Signed 15-Mar-2021 11:40) Authored: Discharge Orders, Appointments Last Updated: 15-Mar-2021 13:39 by Max Champion (Resident)) Normal [facility] Follow Up (Pulmonary Medicin e)on 03-11-2021 Follow [...] Coley underwent endobronchial valve placement with Dr. uRiz since last visit. 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 Vitals Vital Signs Recorded: 11Mar2021 01:01PM Pcgjgmkmrts83.4 C Heart Rate92 Systolic1 (more content not included)... Normal [facility] Order Reconciliationon 03-11 Order Reconciliation Page 1 Admission Reconciliation Document Reconciliation Type: Admission requested on behalf of Max Champion (Resident) done by Max Champion ( (Resident)) Admission - Reconciliation: 11-Mar-2021 16:07 by: Max Champion ( (Resident)) Home MedicationsEnteredLast Dose TakenReconciled with current Order Reconciliation Comment/ Additional Information albuterol 90 mcg/inh inhalation aerosol with adapter 2 puff(s) inhaled every 4 hours, As Oejiqz17-Ivs-4919 Albuterol 2.5 mg/ 3 mL Nebulizer Soln (PROVENTIL)DOSE = 3 mL Inhalation Every 4 Hours via Nebulizeralbuterol 90 mcg/inh inhalation aerosol with adapter continued as the inpatient order Albuterol 2.5 mg/ 3 mL Nebulizer Soln Aspirin Low Dose 81 mg oral tablet, chewable 1 orally once a eki19-Yoz-6396 Aspirin Chewable Tablet, ChewableDOSE = 81 mg Oral DailyAspirin Low Dose 81 mg oral tablet, chewable continued as the inpatient order Aspirin Chewable Multiple Vitamins oral tablet 1 tab(s) orally once a cfz82-Irm-2751 Vitamin B Complex with C EachDOSE = 1 each Oral DailyMultiple Vitamins oral tablet continued as the inpatient order Vitamin B Complex with C primidone 250 mg oral tablet 1 orally every 12 bqudg57-Iuj-7917 Primidone Tablet (MYSOLINE)DOSE = 250 mg Oral [...] minute(s)Clinician Notes: Weekly on last dose was 8/, next dose 03/15Prolastin-C intravenous solution continued as the inpatient order Alpha 1-Proteinase Inhibitor (HUMAN) IV Piggy Back Trelegy Ellipta 100 mcg-62.5 mcg-25 mcg/inh inhalation powder 1 puff(s) inhaled once a ypl10-Tlj-1123 Reviewed and Held vitamin E 400 intl units oral capsule 1 cap(s) orally once a skr14-Zpi-1088 Reviewed and Held Normal [facility] Patient Profile - Adult v2on 03-11-2021 Patient [...] e(1) Weight in kg111.3 kilogram(s)(2) Weight in alp644.3 pound(s) Weight Methodstated Scale Typebed Height in [...] From 1. Vital Signs 11-Mar-2021 15:12 Normal [facility] RESPIRATORY CULT./SM,LOWERon 03-11-2021 RESPIRATORY CULT./SM,LOWER PATIENT: BROCK COLEY LOCATION: [address] BILL#: [id number] : 53 AGE: SEX: M ORDERED BY: [...] INDICATED. RESPIRATORY CULT./SM,LOWER CANCELLED 03/12/21 09:05 Normal [facility] Comment on above: Performed By: #### C RP #### [facility] [address] [place] [address] STAPH/MRSA SCREENon 03-11-20 STAPH/MRSA SCREEN PATIENT: JAMIR COLEY LOCATION: [address] BILL#: [id number] : 53 AGE: SEX: M ORDERED BY: MIRIAM MARKS SOURCE: MISC COLLECTED: 03/11/21 18:33 ANTIBIOTICS AT DIO.: RECEIVED : 03/11/21 22:02 SITE: Nasal/Groin and Axilla R E S U L T S STAPH/MRSA SCREEN FINAL 03/13/21 10:45 NO Staphylococcus aureus ISOLATED. Normal [facility] Comment on above: Performed By: #### C RP #### [facility] [address] [place] [address] TH CHEST 2 VIEW PA AND LATon 03-11-2021 CHEST 2 VIEW PA AND LAT Patient Name: BROCK COLEY STUDY: TH CHEST 2 VIEW PA AND LAT; 03/11/2021 5:21 pm INDICATION: COPD with HAP. COMPARISON: Prior chest radiograph from 03/03/2021 ACCESSION NUMBER(S): [id number] ORDERING CLINICIAN: MAX CHAMPION FINDINGS: PA and [...] Electronically signed by: BASILIO OLIVAREZ MD Normal [facility] TH CT CHEST WO CONTRASTon TH CT CHEST WO CONTRAST STUDY: CT Chest without IV Contrast; 03/11/2021 11:19 AM INDICATION: [place] valve, emphysema, shortness of breath. Chronic respiratory failure with hypoxia. COMPARISON: 03/03/2021 XR Chest. ACCESSION NUMBER(S): [id number] ORDERING CLINICIAN: SALINAS RUIZ MD TECHNIQUE: CT [...] Electronically signed by: CARMENZA SANTOS DO Normal [facility] No Panel Informationon 03-03 Please click on [...] lobe. COMPARISON: Chest radiograph 03/03/2021. ACCESSION NUMBER(S): [id number] ORDERING CLINICIAN: AMBER ARROYO FINDINGS: PA chest [...] as stated. This study was interpreted at [place], [place]. Electronically signed by: Ollie HAGER MD Normal [facility] TH CHEST 1 VIEWon 03-03-2021 TH CHEST 1 VIEW Patient Name: BROCK COLEY STUDY: CHEST 1 VIEW; 03/03/2021 5:04 am INDICATION: post LLL endobronchial valve insertion. COMPARISON: 03/02/2021 ACCESSION NUMBER(S): [id number] ORDERING CLINICIAN: ZIYAD WILLINGHAM FINDINGS: AP radiograph [...] Electronically signed by: MANDY JIMENEZ MD Normal [facility] Daily Progress Note-DACRon 0 03-02-2021 Daily Progress Note-DACR Service: DACR Subjective Data: BROCK COLEY is a 65 year old Male who is Hospital Day # 3. Additional Information: Pt seen and examined at bedside. No acute events overnight per RN. Pt companding of some L chest soreness otherwise has no complaints at this time. Objective Data: Objective Information: T PRBPSpO2 Value36.33685898/7993% Date/Time03/02 9: 9: 9: 9: 9:36 Range(36.2C [...] the note. I personally evaluated the patient [id number]-2779 Electronic Signatures: Thang Lorenzo) (Signed 02-Mar-2021 21:32) Authored: Note Completion Co-Signer: Objective Data, Assessment and Plan, Note Completion Amber Arroyo (Resident)) (Signed 02-Mar-2021 15:30) Authored: Service, Subjective Data, Objective Data, Assessment and Plan, Note Completion Last Updated: 02-Mar-2021 21:32 by Thang Lorenzo) [facility] Order Reconciliationon 03-02 Order Reconciliation Page 1 [...] MDI, PRN Shortness of BreathNotes from Pharmacy: [facility] 28-Feb-2021 16:01 Albuterol 90 micrograms/ Inhalation MDI is not required Aspirin Chewable Tablet, ChewableDOSE = 81 mg Oral Daily 28-Feb-2021 16:01 Aspirin Chewable is not required Enoxaparin SubCutaneous (LOVENOX)DOSE = 40 mg SubCutaneous Every 24 Hours 28-Feb-2021 16:01 Enoxaparin SubCutaneous is not required Fluticasone 100 microgram -Salmeterol 50 microgram/ Inh Powder (ADVAIR DISKUS)DOSE = 1 inhalation Every 12 HoursNotes from Pharmacy: [facility] 01-Mar-2021 13:15 Fluticasone 100 microgram -Salmeterol [...] inhalation DailyClinician Notes: hospital substitute for home Gatolecristian Rosalesotes from Pharmacy: Substitution for Fluticasone 100 mcg [...] weekly o (more content not included)... Normal [facility] Radiologyon 03-02-2021 XR Chest Single view Normal [facility] Work Phone: [phone] CHEST 1 VIEWon 03-02-2021 TH CHEST 1 VIEW Patient Name: BROCK COLEY STUDY: CHEST 1 VIEW; 03/02/2021 4:23 am INDICATION: AM CXR, daily cxr following endobronchial valve placement, eval for pneumothorax. COMPARISON: 03/01/2021 ACCESSION NUMBER(S): [id number] ORDERING CLINICIAN: COLTON RICH FINDINGS: Portable AP [...] edema. Electronically signed by: BASILIO OLIVAREZ MD [facility] Daily Progress Note-DACRon 0 03-01-2021 Daily Progress Note-DACR Service: DACR Subjective Data: BROCK COLEY is a 65 year old Male who is Hospital Day # 2. -No acute events overnight -Patient feeling well this AM, no dyspnea. Objective Data: Objective Information: T PRBPSpO2 Value36.53981377/5797% Date/Time03/01 14: 14: 14: 14: 14:35 Range(35.7C [...] Updated: 01-Mar-2021 16:07 by Thang Lorenzo) Normal [facility] Discharge Planning Sias0wu 0 03-01-2021 Discharge Planning Note2 Discharge Planning: Needs Prior to Discharge (ex. Home Care Orders, IV/O2 prescriptions) F/u appts Discharge Barriers (ex. Avoidable days, wait guardianship, pt refuse leave) None Planned Dispositionhome Discharge DestinationHome PCP/Next Provider Follow Up Scheduledyes Patient/Surgical Scheduler Stated GoalYes, Home no needs Julian of Choice Explainedno Anticipated Discharge Qkeg07-Gdj-2845 Discharge Planning 03/01/21 11:30 AM Transitional Care Coordination Progress Note: Patient discussed during interdisciplinary rounds. Team members present: DOMINIQUE and Plan per Medical/Surgical team: Needs to be monitored 3 days after Bronch procedure, monitoring labs and vitals Payer: Medicare Status: Observation Discharge disposition: Home no needs Potential Barriers: None at this time ADOD: 03/04 Joel. Kusum Eubanks RN BSN Transitional Buffer Automatic [phone] Transitional Buffer Automatic Note: 03/01/2021@ 13:53 Met with patient/ to introduce myself, role and discus discharge planning. Patient lives with his spouse. Independent in all ADL's. Requires no assist devices for ambulation. Denies active home care or home care needs. Will continue to monitor patient for all home going needs. Abbey Portillo RN [facility] [phone] 03/03/21 9:30 AM Transitional Care Coordination Progress Note: Patient discussed during interdisciplinary rounds. Team members present: DOMINIQUE and Plan per Medical/Surgical team: Pt scheduled for priority Tomogram today, monitoring labs and vitals Payer: Medicare Status: Inpatient Discharge disposition: Home no needs Potential Barriers: None at this time ADOD: 03/04 Riri Eubanks RN BSN Transitional Buffer Automatic [phone] Assessment: Discharge Planning Assessment [id number]-Hvy-1367 Discharge Planning Assessment Completed byAbbey Portillo RN [facility] [phone] Primary Contact Name and NumberDarjose angel Valles () [phone] Tacho Ruiz DO Preferred Pharmacy Name/Location[facility] Medication Adherence/Afford/Obtainye s InsuranceMedicare A/B and Aetna [...] by Aditya Arnold (ADV CLIN N) Normal [facility] Discharge Gecsuqj7yq 07-27-2 021 Discharge Profile2 Discharge Orders: Anticipated Discharge Date: Anticipated Discharge Sqie57-Uch-1721 DNAR: DNAR Status: none Hospital Course (Home [...] Medication Reconciliation and Orders Completedby Physician Reviewing ProviderAlejandrooma MD Dina (Resident) at 03-Mar-2021 12:15:36 Appointments: Follow-Up Appointment 01: Physician/Dept/ServiceDr. Ruiz (Pulmonology) Reason for Referralhospital f/u visit CommentsYou will be called with the details of the appointment in the next few days. Please call [phone] if you do not hear back by then to inquire about appointment. Please arrive 15 minutes early and bring photo ID, insurance card, and medication list. If unable to attend appointment, please call to cancel within 24 hours. Electronic Signatures: Colton Rich ( (Resident)) (Signed 01-Mar-2021 15:54) Authored: Discharge Orders, Hospital Course (Home Care/Gold Form), Gold Form - Mover Summary Amber Arroyo ( (Resident)) (Signed 03-Mar-2021 12:15) Authored: Discharge Orders, Provider FINAL REVIEW of Orders, Appointments Last Updated: 03-Mar-2021 12:15 by Amber Arroyo ( (Resident)) Normal [facility] GLUCOSE-POCTon 03-01-2021 Glucose [Mass/Vol] 110 mg/dL High 74 - 99 [facility] Comment on above: Performed By: #### C BCDF #### [facility] [address] [place] [address] Glucose [Mass/Vol] 90 mg/dL Normal 74 - 99 [facility] Comment on above: Performed By: #### C RP #### [facility] [address] [place] [address] Glucose [Mass/Vol] 124 mg/dL High 74 - 99 [facility] Comment on above: Performed By: #### G KATELYN ####[id number] [place] [address] Laboratory - Chemistry and C hemistry - challengeon 03-01-2021 Glucose [Mass/Vol] 110 mg/dL above high threshold 74 - 99 [facility] Work Phone: Glucose [Mass/Vol] 90 mg/dL 74 - 99 [facility] Work Phone: Glucose [Mass/Vol] 124 mg/dL above high threshold 74 - 99 [facility] Work Phone: [phone] Radiologyon 03-01-2021 XR Chest Single view Normal [facility] Work Phone: TH CHEST 1 VIEWon 03-01-2021 TH CHEST 1 VIEW Patient Name: BROCK COLEY STUDY: CHEST 1 VIEW; 03/01/2021 7:23 am INDICATION: pneumothorax. COMPARISON: 02/28/2021 ACCESSION NUMBER(S): [id number] ORDERING CLINICIAN: BRANDON EISENBERG FINDINGS: AP radiograph [...] as stated. This study was interpreted at [facility], [place], [place]. Electronically signed by: CAMERON SALMERON MD Normal [facility] Consult-Thoracic and Esophag eal Surgeryon 02-28-2021 Consult-Thoracic and Esophageal Surgery Service: Service: Thoracic & Esophageal Surgery Consult: Consult requested by (Attending Name): Salinas Ruiz Reason: 65yo M s/p BLVR w/ endobronchial valve to LLL; high risk for pneumothorax History of Present Illness: HPI: BROCK COLEY is a 65 year old Male with history of smoking (quit 2015), emphysema, alpha-1 antitrypsin deficiency, who underwent endobronchial [...] Known Allergies: Objective: Objective Information: T PRBPSpO2 Value36.21129028/5499% Date/Time03/01 6: 6: 6: 6:5003/01 6:50 Range(35.7C - 36.7C ) (57 - [...] Eisenberg. Madhuri Nur MD PGY-2 Thoracic Surgery [id number] Consult Status: Consult Order ID: [id number] Attestation: Note Completion: I am a: Resident/Fellow [...] the note. I personally evaluated the patient [id number] Electronic Signatures: Madhuri Nur (Resident)) (Signed 01-Mar-2021 09:00) Authored: Service, History of Present Illness, Review Family/Social History and ROS, Allergies, Objective, Assessment/Recommendation s, Note Completion Brandon Eisenberg) (Signed 14-Mar-2021 16:38) Authored: Note Completion Co-Signer: History of Present Illness, Objective, Note Completion Last Updated: 14-Mar-2021 16:38 by Brandon Eisenberg) References: 1. Data Referenced From Consult-Thoracic and Esophageal Surgery 28-Feb-2021 18:32 Normal [facility] Consult-Thoracic and Esophageal Surgery Service: Service: Thoracic [...] Known Allergies: Objective: Objective Information: T PRBPSpO2 Value36.48783513/7698% Date/Time02/28 18: 18: 18: 18: 18:26 Range(35.7C - 36.2C ) (63 - 73 [...] for a pneumothorax, and is admitted to [place] [address]. Thoracic surgery consulted to evaluate and for possible chest tube placement. Recs: -daily CXR -if pt develops a pneumothorax, will place a chest tube -D/W primary team, Dr Ruiz Pt seen and examined; I discussed the pt with Dr iEsenberg Consult Status: Consult Order ID: [id number] Send Provider Communication: Note Recipients: Jeferson Ruiz, - [phone] [] Attestation: Note Completion: Provider/Team Pager #[phone] Electronic Signatures: Gerber Alas (TERE (PHYSICIAN)) (Signed 28-Feb-2021 19:10) Authored: Service, History of Present Illness, Review Family/Social History and ROS, Allergies, Objective, Assessment/Recommendation s, Provider Communication, Note Completion Last Updated: 28-Feb-2021 19:10 by Gerber Alas (TERE (PHYSICIAN)) Normal [facility] No Panel Informationon 02-28 [email or web address] [id number] [email or web address]} [facility] Work Phone: [facility] [...] 2 puff(s) inhaled every 4 hours, As Bmuogc11-Dkc-1338 Albuterol 90 micrograms/ Inhalation MDI (PROVENTIL, VENTOLIN)DOSE = 2 inhalation Every 4 Hours via MDI, PRN Shortness of BreathNotes from Pharmacy: RCRAalbuterol 90 mcg/inh inhalation aerosol with adapter reconciled with the existing inpatient order Albuterol 90 micrograms/ Inhalation MDI Aspirin Low Dose 81 mg oral tablet, chewable 1 orally once a [id number] Aspirin Chewable Tablet, ChewableDOSE = 81 mg Oral DailyAspirin Low Dose 81 mg oral tablet, chewable reconciled with the existing inpatient order Aspirin Chewable Multiple Vitamins oral tablet 1 tab(s) orally once a [id number] Multivitamin with Minerals TabletDOSE = 1 tablet(s) Oral DailyMultiple Vitamins oral tablet reconciled with the existing inpatient order Multivitamin with Minerals primidone 250 mg oral tablet 1 orally every 12 [id number]-6564 Primidone Tablet (MYSOLINE)DOSE = 250 mg Oral [...] inhalation powder 1 puff(s) inhaled once a [id number] Tiotropium 18 micrograms/ Inhalation Capsule (SPIRIVA HANDIHALER)DOSE [...] oral capsule 1 cap(s) orally once a [id number] Reviewed and Held Additional Current Orders Enoxaparin SubCutaneous (LOVENOX)DOSE = 40 mg SubCutaneous Every 24 Hours Melatonin TabletDOSE = 3 mg Oral At Bedtime, PRN Insomnia Normal [facility] Radiologyon 02-28-2021 XR Chest Single view Normal [facility] Work Phone: TH CHEST 1 VIEWon 02-28-2021 TH CHEST 1 VIEW Patient Name: BROCK COLEY STUDY: CHEST 1 VIEW; 02/28/2021 3:44 pm INDICATION: s/p LLL endobronchial valve placement x5. COMPARISON: None. ACCESSION NUMBER(S): [id number] ORDERING CLINICIAN: EMERSON LUIS FINDINGS: CARDIOMEDIASTINAL SILHOUETTE: [...] disease. Electronically signed by: Ollie HAGER MD [facility] V/Q QUANTon 02-28-2021 V/Q QUANT Patient Name: BROCK COLEY STUDY: V/Q QUANT; 02/28/2021 9:55 am INDICATION: Emphysema, respiratory failure. 65-year-old male with emphysema in setting alpha-1 antitrypsin deficiency and positive smoking history; pre-op evaluation. COMPARISON: CT chest dated 12/15/2020 ACCESSION NUMBER(S): [id number] ORDERING CLINICIAN: SALINAS RUIZ TECHNIQUE: DIVISION OF [...] as stated. This study was interpreted at [facility], [place], [place]. Electronically signed by: ALETA RAMIREZ MD [facility] Consult (Pulmonary Medicine) on 12-15-2020 Consult (Pulmonary Medicine) Diagnoses/Problems Emphysema/COPD (492.8) (J43.9) Former smoker (V15.82) (Z87.891) Chronic respiratory failure with hypoxia (518.83,799.02) (J96.11) Hyolc-5-ndmimtiydgx deficiency (273.4) (E88.01) Pre-op evaluation (V72.84) (Z01.818) [...] proptosis. Hematologic/L (more content not included)... Normal [place] Risk Screeningon 12-15 Fall risk assessment a) No falls within the last year [facility] Work Phone: [phone] Falls Risk Screening b) No [facility] Work Phone: [phone] CT CHEST WO CONTRASTon TH CT CHEST WO CONTRAST Patient Name: BROCK COLEY STUDY: CT CHEST WO CONTRAST; 12/15/2020 2:15 pm INDICATION: SOB, COPD. COMPARISON: None. ACCESSION NUMBER(S): [id number] ORDERING CLINICIAN: SALINAS RUIZ TECHNIQUE: Helical data [...] as stated. This study was interpreted at [facility], [place], [place]. Electronically signed by: MANDY JIMENEZ MD Normal [facility] Blood Gas Art, with Sarah Baumann [place] 12-06-2020 a/A Ratio Art 60.30 % Normal >=0.80 [facility] Comment on above: Performed By: #### 4 [id number] #### [facility] [address] [place] [address] AaDO2 Art 38.4 mmHg High 5.0-15.0 [facility] Comment on above: Performed By: #### 4 [id number] #### [facility] [address] [place] [address] Allens Test Not Applicable Normal [facility] Comment on above: Performed By: #### 4 [id number] #### [facility] [address] [place] [address] Base Excess Arterial 1.0 mmol/L Low >=2.8 [facility] Comment on above: Performed By: #### 4 [id number] #### [facility] [address] [place] [address] cCa2+ Art 4.79 mg/dL Normal 4.40-5.30 [facility] Comment on above: Performed By: #### 4 [id number] #### [facility] [address] [place] [address] cCl- Art 106.0 mmol/L Normal 101.0-111.0 [facility] Comment on above: Performed By: #### 4 [id number] #### [facility] [address] [place] [address] cGlu Art 107.0 mg/dL Normal 55.0-199.0 [facility] Comment on above: Performed By: #### 4 [id number] #### [facility] [address] [place] [address] cK+ Art 4.3 mmol/L Normal 3.5-5.3 [facility] Comment on above: Performed By: #### 4 [id number] #### [facility] [address] [place] [address] cLac Art 1.0 mmol/L Low 5.0-14.0 [facility] Comment on above: Performed By: #### 4 [id number] #### [facility] [address] [place] [address] silk weaver+ Art 141.0 mmol/L Normal 135.0-145.0 [facility] Comment on above: Performed By: #### 4 [id number] #### [facility] [address] [place] [address] Drawn by jac Invalid Interpretation Code [facility] Comment on above: Performed By: #### 4 [id number] #### [facility] [address] [place] [address] FCOHb Art 1.0 % Low 1.5-4.9 [facility] Comment on above: Result Comment: Refe rence range Nonsmoker <1.5% Smoker <5.0% Heavy Smoker <9.0% Performed By: #### 4 [id number] #### [facility] [address] [place] [address] FIO2 BG [address] [facility] Comment on above: Performed By: #### 4 [id number] #### [facility] [address] [place] [address] FMetHb Art 0.6 % Normal 0.0-1.9 [facility] Comment on above: Performed By: #### 4 [id number] #### [facility] [address] [place] [address] FO2Hb Art 90.4 % Low 93.0-100.0 [facility] Comment on above: Performed By: #### 4 [id number] #### [facility] [address] [place] [address] HCO3 (Bld) [Moles/Vol] 25.1 mmol/L Normal 22.0-26.0 [facility] Comment on above: Performed By: #### 4 [id number] #### [facility] [address] [place] [address] Hemoglobin (Bld) [Mass/Vol] 14.2 g/dL Normal 12.0-17.0 [facility] Comment on above: Performed By: #### 4 [id number] #### [facility] [address] [place] [address] Oxygen saturation in Blood 91.8 % Low 95.0-100.0 [facility] Comment on above: Performed By: #### 4 [id number] #### [facility] [address] [place] [address] P CO2 Arterial 41.4 mmHg Normal 35.0-45.0 [facility] Comment on above: Performed By: #### 4 [id number] #### [facility] [address] [place] [address] P O2 Arterial 58.4 mmHg Low 80.0-100.0 [facility] Comment on above: Performed By: #### 4 [id number] #### [facility] [address] [place] [address] pH Arterial 7.405 Normal 7.350-7.450 [facility] Comment on above: Performed By: #### 4 [id number] #### [facility] [address] [place] [address] Sample Site R Brachial Normal [facility] Comment on above: Performed By: #### 4 [id number] #### [facility] [address] [place] [address] Sample Type Arterial Draw Normal [facility] Comment on above: Performed By: #### 4 [id number] #### [facility] [address] [place] [address] Physician Orderon 12-06-2020 Physician Order [id number]:[address] [facility] Vital Signs Date Time Vital Sign Value Performing Clinician Facility 05-04-2021 13:45-0400 Body height 170.1 cm Jeferson Mckay [employer] Work Phone: [facility] Work Phone: 05-04-2021 13:45-0400 Body mass index (BMI) [Ratio] 39.23 kg/m2 Jeferson Mckay [employer] Work Phone: [facility] Work Phone: 05-04-2021 13:45-0400 Body surface area Derived from formula 2.22 m2 Jeferson Mckay [employer] Work Phone: BD-Xeixbhn-Eqdify n [facility] Work Phone: 05-04-2021 13:45-0400 Body temperature 97.7 [degF] Jeferson P [employer] Work Phone: LY-Uumbrri-Xbslrd n [facility] Work Phone: 05-04-2021 13:45-0400 Body weight 113.51 kg Jeferson P [employer] Work Phone: CP-Mwyjcrk-Dpgobf n [facility] Work Phone: 05-04-2021 13:45-0400 Diastolic blood pressure 81 mm[Hg] Jeferson Mckay [employer] Work Phone: XM-Cyizjtc-Gawcmt n [facility] Work Phone: 05-04-2021 13:45-0400 Heart rate 105 /min Jeferson Mckay [employer] Work Phone: AW-Uaqbpje-Hsvxwr n [facility] Work Phone: 05-04-2021 13:45-0400 Respiratory rate 16 /min Jeferson Mckay [employer] Work Phone: IS-Pqsfhnb-Uvdmik n [facility] Work Phone: 05-04-2021 13:45-0400 SaO2% (BldA) [Mass fraction] 95 % Jeferson P [employer] Work Phone: ZQ-Wxohtnc-Gwdjyv n [facility] Work Phone: 05-04-2021 13:45-0400 Systolic blood pressure 153 mm[Hg] Jeferson P [employer] Work Phone: ZQ-Zatntrx-Pbqthc n [facility] Work Phone: 05-04-2021 13:45-0400 0 1 Jeferson P [employer] Work Phone: [facility] Work Phone: Comment on above: [employer] 03-15-2021 06:50-0400 Body temperature 97.88 [degF] Jeferson Ruiz Other Phone: [facility] 03-15-2021 06:50-0400 Diastolic blood pressure 79 mm[Hg] Jefersonnelda Hansa Other Phone: [facility] 03-15-2021 06:50-0400 Heart rate 98 /min Jefersonnelda Hansa Other Phone: [facility] 03-15-2021 06:50-0400 Respiratory rate 18 /min Jefersonnelda Hansa Other Phone: [facility] 03-15-2021 06:50-0400 SaO2% (BldA) [Mass fraction] 93 % Jeferson Hansa Other Phone: [facility] 03-15-2021 06:50-0400 Systolic blood pressure 151 mm[Hg] Jeferson Hansa Other Phone: [facility] 12-15-2020 14:25-0400 Body height 170.1 cm Jeferson [...] Diastolic blood pressure 82 mm[Hg] Jeferson P Samsa Work Phone: [facility] Work Phone: 12-15-2020 14:25-0400 Heart rate 96 /min Jeferson P Samsa Work Phone: [facility] Work Phone: 12-15-2020 14:25-0400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
[2024-05-08 12:20] LABS: Chol HDL Ratio 4.2; Cholesterol 204 mg/dL (<=200); HDL Cholesterol 48 mg/dL (40-60); Triglycerides 97 mg/dL (<=150); VLDL CHOLESTEROL 19.4 mg/dL
== END 2024-05-08 11:45 | disposition home or self-care (01) ==
LOC: LAB 11:46
PROVIDERS: PCP Nurse Practitioner Family; Visit Provider Nurse Practitioner
DX: I25.10 Atherosclerotic heart disease of native coronary artery without angina pectoris (principal)
CPT/HCPCS: 36415; 80061

== ENCOUNTER 2024-05-13 10:06 | Outpatient (OUT) | payer MEDICARE, SELFPAY ==
--- NOTE | 2024-05-13 10:10 | CT_ITS ---
[address] [address] Patient Name: STACEY COLEY MRN: [id number] date: 1955 Sex: M Assigned Patient Location: CT Current Patient Location: CT Accession/Order Number: [id number] Exam Date: 05/13/2024 10:36 Report Date: 05/13/2024 13:13 At the request of: JEFERSON GLOVER Procedure: CT chest wo con EXAMINATION: CT chest wo con HISTORY: Abnormal Nonspecific Findings in Lung COMPARISON: CT chest 12/04/2023 TECHNIQUE: Axial, Coronal, and Sagittal images were created without the administration of IV contrast material. Dose reduction techniques were achieved by using automated exposure control and/or adjustment of mA and/or kV according to patient size and/or use of iterative reconstruction technique. FINDINGS: LUNGS: Marked emphysematous changes. Several endobronchial valves within left lower lobe, with majority of these containing mucus. Several mucous plugged bronchi extending into the posterior basilar left lower lobe with persistent atelectasis versus consolidation. PLEURA: No mass, effusion, or pneumothorax. VASCULATURE: No abnormality. ASHIA: No mass or pathologic adenopathy. MEDIASTINUM: No mass or pathologic adenopathy. CARDIAC: No enlargement, pericardial thickening, or pericardial effusion. Coronary Artery calcifications: Coronary calcifications are mild. AORTA: No aneurysm or dissection. CHEST WALL: No mass or axillary adenopathy BONES: No bone lesion or fracture. LIMITED ABDOMEN: No suspicious findings. Limited images of the upper abdomen. OTHER: Negative. CT/CT chest wo con IMPRESSION: 1. Stable passive atelectasis versus consolidation within posterior left lung base secondary to mucous plugging of a few bronchi and several and bronchial valves; grossly stable. 2. Grossly stable moderate to marked emphysematous changes. Electronically authenticated by: AISSATOU WORKMAN Date: 05/13/2024 13:13
--- OUTSIDE RECORDS SUMMARY | 2024-05-13 10:19 | XMS_ITS | CCD ---
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 [facility] Comment on above: Performed By: #### C BCDF #### [facility] [address] [place] [address] Protein [Mass/Vol] 6.6 g/dL Normal 6.4 - 8.2 [facility] Comment on above: Performed By: #### C BCDF #### [facility] [address] [place] [address] Sodium [Moles/Vol] 135 mmol/L Low 136 - 145 [facility] Comment on above: Performed By: #### C BCDF #### [facility] [address] [place] [address] Urea nitrogen [Mass/Vol] 16 mg/dL Normal 6 - 23 [facility] Comment on above: Performed By: #### C BCDF #### [facility] [address] [place] [address] Daily Progress Note-Medicine on 03-13-2021 Daily Progress Note-Medicine Service: Medicine Subjective Data: BROCK COLEY is a 66 year old Male who is Hospital Day # 3. Objective Data: Objective Information: T PRBPSpO2 [id number]/6294% Date/Time03/13 13:5403/13 13:5403/13 13: 13: 13:54 Range(35.7C - 36.9C ) [...] is a 66 year old Male with oitzb-7-wcavbvzzpa deficiency (on weekly Prolastin-C, 1000mg IV every [...] to re-assess tomorrow. Below plan not updated #Bswib-1-vuhacezhxtn deficiency #Emphysema with severe copd s/p LLL [...] the note. I personally evaluated the patient [id number] Comments/ Additional Findings Seen on rounds, reported [...] Updated: 13-Mar-2021 23:14 by Miriam Marks) Normal [facility] LEGIONELLA AG, URINEon 03-13 LEGIONELLA AG, URINE Negative Normal Negative [facility] Comment on above: Result Comment: NEGA TIVE FOR LEGIONELLA PNEUMOPHILIA SEROGROUP 1 ANTIGEN IN URINE, SUGGESTING NO CURRENT OR PAST INFECTION. Performed By: #### C BCDF #### [facility] [address] [place] [address] S.PNEUMONIAE AG,Uon 03-13-20 21 S.PNEUMONIAE AG,U Negative Normal Negative [facility] Comment on above: Result Comment: Pres umptive negative for pneumococcal pneumonia, suggesting no current or recent infection. Infection due to S. pneumoniae cannot be ruled out since the antigen present in the sample may be below the detection limit of the test. Performed By: #### S PNAG #### [facility] [address] [place] [address] TH CHEST 1 VIEWon 03-13-2021 TH CHEST 1 VIEW Patient Name: BROCK COLEY STUDY: CHEST 1 VIEW; 03/13/2021 6:08 am INDICATION: desat. COMPARISON: 03/12/2021 ACCESSION NUMBER(S): [id number] ORDERING CLINICIAN: ANNA MAN FINDINGS: AP radiograph [...] Electronically signed by: BASILIO OLIVAREZ MD Normal [facility] VANCOMYCIN,TROUGHon 03-13-20 21 VANCOMYCIN,TROUGH 12.8 ug/mL Normal 5.0 - 20.0 [facility] Comment on above: Result Comment: Vanc omycin [...] 2009. Performed By: #### V ANCT #### [facility] [address] [place] [address] C-REACTIVE PROTEINon 021 C-REACTIVE PROTEIN 11.18 mg/dL Abnormal [facility] Comment on above: Result Comment: REF VALUE < 1.00 Performed By: #### C RP #### [facility] [address] [place] [address] CBC AND DIFFERENTIALon 03-12 % AUTOMATED IMMATURE GRAN 0.5 % Normal 0.0 - 0.9 [facility] Comment on above: Result Comment: Suellen ture Granulocyte Count (IG) includes promyelocytes, myelocytes and metamyelocytes but does not include bands. Percent differential counts (%) should be interpreted in the context of the absolute cell counts (cells/L). Performed By: #### C BCDF #### [facility] [address] [place] [address] Basophils (Bld) [#/Vol] 0.03 10*3/uL Normal 0.00 - 0.10 [facility] Comment on above: Performed By: #### C BCDF #### [facility] [address] [place] [address] Basophils/100 WBC (Bld) 0.3 % Normal 0.0 - 2.0 [facility] Comment on above: Performed By: #### C BCDF #### [facility] [address] [place] [address] Eosinophils (Bld) [#/Vol] 0.15 10*3/uL Normal 0.00 - 0.70 [facility] Comment on above: Performed By: #### C BCDF #### [facility] [address] [place] [address] Eosinophils/100 WBC (Bld) 1.6 % Normal 0.0 - 6.0 [facility] Comment on above: Performed By: #### C BCDF #### [facility] [address] [place] [address] Erythrocyte distribution width (RBC) [Ratio] 12.1 % Normal 11.5 - 14.5 [facility] Comment on above: Performed By: #### C BCDF #### [facility] [address] [place] [address] Hematocrit (Bld) [Volume fraction] 37.4 % Low 41.0 - 52.0 [facility] Comment on above: Performed By: #### C BCDF #### [facility] [address] [place] [address] Hemoglobin (Bld) [Mass/Vol] 13.0 g/dL Low 13.5 - 17.5 [facility] Comment on above: Performed By: #### C BCDF #### [facility] [address] [place] [address] Lymphocytes (Bld) [#/Vol] 2.27 10*3/uL Normal 1.20 - 4.80 [facility] Comment on above: Performed By: #### C BCDF #### [facility] [address] [place] [address] Lymphocytes/100 WBC (Bld) 24.0 % Normal 13.0 - 44.0 [facility] Comment on above: Performed By: #### C BCDF #### [facility] [address] [place] [address] MCHC (RBC) [Mass/Vol] 34.8 g/dL Normal 32.0 - 36.0 [facility] Comment on above: Performed By: #### C BCDF #### [facility] [address] [place] [address] MCV (RBC) [Entitic vol] 97 fL Normal 80 - 100 [facility] Comment on above: Performed By: #### C BCDF #### [facility] [address] [place] [address] Monocytes (Bld) [#/Vol] 0.95 10*3/uL Normal 0.10 - 1.00 [facility] Comment on above: Performed By: #### C BCDF #### [facility] [address] [place] [address] Monocytes/100 WBC (Bld) 10.1 % Normal 2.0 - 10.0 [facility] Comment on above: Performed By: #### C BCDF #### [facility] [address] [place] [address] Neutrophils (Bld) [#/Vol] 6.00 10*3/uL Normal 1.20 - 7.70 [facility] Comment on above: Performed By: #### C BCDF #### [facility] [address] [place] [address] Neutrophils/100 WBC (Bld) 63.5 % Normal 40.0 - 80.0 [facility] Comment on above: Performed By: #### C BCDF #### [facility] [address] [place] [address] NUCLEATED RBC 0.0 /100 WBC Normal 0.0-0.0 [facility] Comment on above: Performed By: #### C BCDF #### [facility] [address] [place] [address] Platelets (Bld) [#/Vol] 406 10*3/uL Normal 150 - 450 [facility] Comment on above: Performed By: #### C BCDF #### [facility] [address] [place] [address] RBC 3.84 x10E12/L Low 4.50 - 5.90 [facility] Comment on above: Performed By: #### C BCDF #### [facility] [address] [place] [address] WBC (Bld) [#/Vol] 9.5 10*3/uL Normal 4.4 - 11.3 [facility] Comment on above: Performed By: #### C BCDF #### [facility] [address] [place] [address] Daily Progress Note-Medicine on 03-12-2021 Daily Progress Note-Medicine Service: Medicine Subjective Data: BROCK COLEY is a 66 year old Male who is Hospital Day # 2. Objective Data: Objective Information: T PRBPSpO2 [id number]/8491% Date/Time03/12 13: 13: 13: 13: 13:18 Range(35.5C [...] is a 66 year old Male with mqrix-4-zrxidbsdat deficiency (on weekly Prolastin-C, 1000mg IV every [...] to 2-3 L Below plan not updated #Xfuxv-5-lhjfmonpgzy deficiency #Emphysema with severe copd s/p LLL [...] the note. I personally evaluated the patient [id number] Comments/ Additional Findings Please refer to H&P Electronic Signatures: Anna Johnson (Resident)) (Signed 12-Mar-2021 14:40) Authored: Subjective (more content not included)... Normal [facility] LEGIONELLA AG, URINEon 03-12 Lab Specimen Source Normal [facility] Comment on above: Performed By: #### C BCDF #### [facility] [address] [place] [address] MAGNESIUMon 03-12-2021 Magnesium [Mass/Vol] 2.24 mg/dL Normal 1.60 - 2.40 [facility] Comment on above: Performed By: #### M G #### [facility] [address] [place] [address] RENAL FUNCTION PANELon 03-12 Albumin [Mass/Vol] 3.9 g/dL Normal 3.4 - 5.0 [facility] Comment on above: Performed By: #### R ENAL #### [facility] [address] [place] [address] Anion gap [Moles/Vol] 13 mmol/L Normal 10 - 20 [facility] Comment on above: Performed By: #### R ENAL #### [facility] [address] [place] [address] Calcium [Mass/Vol] 9.3 mg/dL Normal 8.6 - 10.6 [facility] Comment on above: Performed By: #### R ENAL #### [facility] [address] [place] [address] Chloride [Moles/Vol] 100 mmol/L Normal 98 - 107 [facility] Comment on above: Performed By: #### R ENAL #### [facility] [address] [place] [address] Creatinine [Mass/Vol] 0.83 mg/dL Normal 0.50 - 1.30 [facility] Comment on above: Performed By: #### R ENAL #### [facility] [address] [place] [address] GFR- AM. >60 Normal >60 [facility] Comment on above: Result Comment: CALC ULATIONS OF ESTIMATED GFR ARE PERFORMED USING THE MDRD STUDY EQUATION FOR THE IDMS-TRACEABLE CREATININE METHODS. CLIN CHEM 2007;53:766-72 Performed By: #### R ENAL #### [facility] [address] [place] [address] GFR-NON AM. >60 Normal >60 [facility] Comment on above: Performed By: #### R ENAL #### [facility] [address] [place] [address] Glucose [Mass/Vol] 114 mg/dL High 74 - 99 [facility] Comment on above: Performed By: #### R ENAL #### [facility] [address] [place] [address] HCO3 (Bld) [Moles/Vol] 25 mmol/L Normal 21 - 32 [facility] Comment on above: Performed By: #### R ENAL #### [facility] [address] [place] [address] Phosphate [Mass/Vol] 4.0 mg/dL Normal 2.5 - 4.9 [facility] Comment on above: Result Comment: The performance characteristics of phosphorus testing in heparinized plasma have been validated by the individual laboratory site where testing is performed. Testing on heparinized plasma is not approved by the FDA; however, such approval is not necessary. Performed By: #### R ENAL #### [facility] [address] [place] [address] Potassium [Moles/Vol] 4.2 mmol/L Normal 3.5 - 5.3 [facility] Comment on above: Performed By: #### R ENAL #### [facility] [address] [place] [address] Sodium [Moles/Vol] 134 mmol/L Low 136 - 145 [facility] Comment on above: Performed By: #### R ENAL #### [facility] [address] [place] [address] Urea nitrogen [Mass/Vol] 15 mg/dL Normal 6 - 23 [facility] Comment on above: Performed By: #### R ENAL #### [facility] [address] [place] [address] RESPIRATORY CULT./SM,LOWERon 03-12-2021 RESPIRATORY CULT./SM,LOWER PATIENT: BROCK COLEY LOCATION: [address]#: [id number] : 53 AGE: SEX: M ORDERED BY: ANNA JOHNSON SOURCE: SPUTUM COLLECTED: 03/12/21 13:04 ANTIBIOTICS AT DIO.: RECEIVED : 03/12/21 15:41 SITE: R E S U L T S GRAM STAIN FINAL 03/12/21 16:45 GRAM STAIN INDICATES SPECIMEN CONSISTS OF LOWER RESPIRATORY TRACT SECRETIONS. NO PREDOMINANT ORGANISM. RESPIRATORY CULT./SM,LOWER FINAL 03/14/21 11:59 NORMAL THROAT MELANIE. Normal [facility] Comment on above: Performed By: #### R ESPL #### [facility] [address] [place] [address] TH CHEST 1 VIEWon 03-12-2021 TH CHEST 1 VIEW Patient Name: BROCK COLEY STUDY: CHEST 1 VIEW; 03/12/2021 3:53 am INDICATION: COPD with HAP. COMPARISON: 03/11/2021 ACCESSION NUMBER(S): [id number] ORDERING CLINICIAN: MAX CHAMPION FINDINGS: AP radiograph [...] effusion. Electronically signed by: BASILIO OLIVAREZ MD [facility] Admission Risk Screen - Adul ton [...] AlertFor Ebola-like Symptoms: Isolate Patient and Notify Provider/Auditor In Charge For Contact: Notify Provider/Auditor In Charge Advance Directive: Advance Directive/DNRno Advance Directive Information [...] Learning Preferencesverbal instruction Cultural Considerationsnone Developmental Considerationsnone Christianity Considerationsnone Learning Assessment (Other Learner): Other learner availableyes... Learnerspouse Factors Influencing Readiness to Learnnone Factors that Impact Ability to Learnnone Devices/Methods Used to Communicatenone Learning Preferencesverbal instruction Cultural Considerationsnone Developmental Considerationsnone Christianity Considerationsnone Depression Screen: During the past month, have you often been bothered by feeling down, depressed or hopelessno During the past month, have you often had little interest or pleasure in doing thingsno Have you had any thoughts of harming anyone elseno Sturgeon Suicide: Risk Screen Not Applicable/Able to Answerable to be screened In the Past Month: Have you wished you were or could go to sleep and not wake upno In the Past Month: Have you had any actual thoughts of killing yourselfno Lifetime: Have you ever done, started to do, or prepared to do anything to end your lifeno Sturgeon Suicide Risknegative Adult Nutrition Screen: Have you [...] = Non (more content not included)... Normal [facility] BLOOD CULTURE, BACTERIALon 0 03-11-2021 BLOOD CULTURE, BACTERIAL PATIENT: BROCK COLEY LOCATION: [address] BILL#: [id number] : 53 AGE: SEX: M ORDERED BY: MIRIAM MARKS SOURCE: Blood COLLECTED: 03/11/21 17:20 ANTIBIOTICS AT DIO.: RECEIVED : 03/11/21 18:34 SITE: PERIPHERAL R E S U L T S BLOOD CULTURE, BACTERIAL FINAL 03/16/21 19:42 No Growth at 1 days No Growth at 2 days No Growth at 3 days No Growth at 4 days NO GROWTH - FINAL REPORT Normal [facility] Comment on above: Performed By: #### C BCDF #### [facility] [address] [place] [address] BLOOD CULTURE, BACTERIAL PATIENT: BROCK COLEY LOCATION: [address] BILL#: [id number] : 53 AGE: SEX: M ORDERED BY: MIRIAM MARKS SOURCE: Blood COLLECTED: 03/11/21 17:19 ANTIBIOTICS AT DIO.: RECEIVED : 03/11/21 18:34 SITE: PERIPHERAL R E S U L T S BLOOD CULTURE, BACTERIAL FINAL 03/16/21 19:42 No Growth at 1 days No Growth at 2 days No Growth at 3 days No Growth at 4 days NO GROWTH - FINAL REPORT Normal [facility] Comment on above: Performed By: #### C BCDF #### [facility] [address] [place] [address] C-REACTIVE PROTEINon 021 C-REACTIVE PROTEIN 11.84 mg/dL Abnormal [facility] Comment on above: Result Comment: REF VALUE < 1.00 Performed By: #### C RP #### [facility] [address] [place] [address] CBC AND DIFFERENTIALon 03-11 % AUTOMATED IMMATURE GRAN 0.3 % Normal 0.0 - 0.9 [facility] Comment on above: Result Comment: Suellen ture Granulocyte Count (IG) includes promyelocytes, myelocytes and metamyelocytes but does not include bands. Percent differential counts (%) should be interpreted in the context of the absolute cell counts (cells/L). Performed By: #### C RP #### [facility] [address] [place] [address] Basophils (Bld) [#/Vol] 0.03 10*3/uL Normal 0.00 - 0.10 [facility] Comment on above: Performed By: #### C RP #### [facility] [address] [place] [address] Basophils/100 WBC (Bld) 0.3 % Normal 0.0 - 2.0 [facility] Comment on above: Performed By: #### C RP #### [facility] [address] [place] [address] Eosinophils (Bld) [#/Vol] 0.10 10*3/uL Normal 0.00 - 0.70 [facility] Comment on above: Performed By: #### C RP #### [facility] [address] [place] [address] Eosinophils/100 WBC (Bld) 1.0 % Normal 0.0 - 6.0 [facility] Comment on above: Performed By: #### C RP #### [facility] [address] [place] [address] Erythrocyte distribution width (RBC) [Ratio] 12.1 % Normal 11.5 - 14.5 [facility] Comment on above: Performed By: #### C RP #### [facility] [address] [place] [address] Hematocrit (Bld) [Volume fraction] 39.3 % Low 41.0 - 52.0 [facility] Comment on above: Performed By: #### C RP #### [facility] [address] [place] [address] Hemoglobin (Bld) [Mass/Vol] 13.5 g/dL Normal 13.5 - 17.5 [facility] Comment on above: Performed By: #### C RP #### [facility] [address] [place] [address] Lymphocytes (Bld) [#/Vol] 2.00 10*3/uL Normal 1.20 - 4.80 [facility] Comment on above: Performed By: #### C RP #### [facility] [address] [place] [address] Lymphocytes/100 WBC (Bld) 20.6 % Normal 13.0 - 44.0 [facility] Comment on above: Performed By: #### C RP #### [facility] [address] [place] [address] MCHC (RBC) [Mass/Vol] 34.4 g/dL Normal 32.0 - 36.0 [facility] Comment on above: Performed By: #### C RP #### [facility] [address] [place] [address] MCV (RBC) [Entitic vol] 98 fL Normal 80 - 100 [facility] Comment on above: Performed By: #### C RP #### [facility] [address] [place] [address] Monocytes (Bld) [#/Vol] 0.98 10*3/uL Normal 0.10 - 1.00 [facility] Comment on above: Performed By: #### C RP #### [facility] [address] [place] [address] Monocytes/100 WBC (Bld) 10.1 % Normal 2.0 - 10.0 [facility] Comment on above: Performed By: #### C RP #### [facility] [address] [place] [address] Neutrophils (Bld) [#/Vol] 6.59 10*3/uL Normal 1.20 - 7.70 [facility] Comment on above: Performed By: #### C RP #### [facility] [address] [place] [address] Neutrophils/100 WBC (Bld) 67.7 % Normal 40.0 - 80.0 [facility] Comment on above: Performed By: #### C RP #### [facility] [address] [place] [address] NUCLEATED RBC 0.0 /100 WBC Normal 0.0-0.0 [facility] Comment on above: Performed By: #### C RP #### [facility] [address] [place] [address] Platelets (Bld) [#/Vol] 393 10*3/uL Normal 150 - 450 [facility] Comment on above: Performed By: #### C RP #### [facility] [address] [place] [address] RBC 4.01 x10E12/L Low 4.50 - 5.90 [facility] Comment on above: Performed By: #### C RP #### [facility] [address] [place] [address] WBC (Bld) [#/Vol] 9.7 10*3/uL Normal 4.4 - 11.3 [facility] Comment on above: Performed By: #### C RP #### [facility] [address] [place] [address] COMPREHENSIVE PANELon 2020 Albumin [Mass/Vol] 4.2 g/dL Normal 3.4 - 5.0 [facility] Comment on above: Performed By: #### C BCDF #### [facility] [address] [place] [address] ALP [Catalytic activity/Vol] 93 U/L Normal 33 - 136 [facility] Comment on above: Performed By: #### C BCDF #### [facility] [address] [place] [address] ALT [Catalytic activity/Vol] 82 U/L High 10 - 52 [facility] Comment on above: Result Comment: Oksana ents treated with Sulfasalazine may generate falsely decreased results for ALT. Performed By: #### C BCDF #### [facility] [address] [place] [address] Anion gap [Moles/Vol] 17 mmol/L Normal 10 - 20 [facility] Comment on above: Performed By: #### C BCDF #### [facility] [address] [place] [address] AST [Catalytic activity/Vol] 37 U/L Normal 9 - 39 [facility] Comment on above: Performed By: #### C BCDF #### [facility] [address] [place] [address] Bilirubin [Mass/Vol] 0.5 mg/dL Normal 0.0 - 1.2 [facility] Comment on above: Performed By: #### C BCDF #### [facility] [address] [place] [address] Calcium [Mass/Vol] 9.6 mg/dL Normal 8.6 - 10.6 [facility] Comment on above: Performed By: #### C BCDF #### [facility] [address] [place] [address] Chloride [Moles/Vol] 101 mmol/L Normal 98 - 107 [facility] Comment on above: Performed By: #### C BCDF #### [facility] [address] [place] [address] Creatinine [Mass/Vol] 0.68 mg/dL Normal 0.50 - 1.30 [facility] Comment on above: Performed By: #### C BCDF #### [facility] [address] [place] [address] GFR- AM. >60 Normal >60 [facility] Comment on above: Result Comment: CALC ULATIONS OF ESTIMATED GFR ARE PERFORMED USING THE MDRD STUDY EQUATION FOR THE IDMS-TRACEABLE CREATININE METHODS. CLIN CHEM 2007;53:766-72 Performed By: #### C BCDF #### [place] [address] [place] [address] GFR-NON AM. >60 Normal >60 [facility] Comment on above: Performed By: #### C BCDF #### [place] [address] [place] [address] Glucose [Mass/Vol] 100 mg/dL High 74 - 99 [facility] Comment on above: Performed By: #### C BCDF #### [facility] [address] [place] [address] HCO3 (Bld) [Moles/Vol] 23 mmol/L Normal 21 - 32 [facility] Comment on above: Performed By: #### C BCDF #### [facility] [address] [place] [address] Potassium [Moles/Vol] 4.7 mmol/L Normal 3.5 - 5.3 [facility] Comment on above: Performed By: #### C BCDF #### [place] [address] [place] [address] Protein [Mass/Vol] 7.1 g/dL Normal 6.4 - 8.2 [facility] Comment on above: Performed By: #### C BCDF #### [facility] [address] [place] [address] Sodium [Moles/Vol] 136 mmol/L Normal 136 - 145 [facility] Comment on above: Performed By: #### C BCDF #### [facility] [address] [place] [address] Urea nitrogen [Mass/Vol] 15 mg/dL Normal 6 - 23 [facility] Comment on above: Performed By: #### C BCDF #### [facility] [address] [place] [address] Clinical Event Note-Senior Vish marte noteon 03-11-2021 [...] no limb edema, not in distress. Received [employer] 2nd dose in . CT chest, 03/11: [...] 17:37 by Max Champion ( (Resident)) Normal [facility] Consult-Pulmonologyon 2020 Consult-Pulmonology Service: Service: Pulmonology [...] ~17 mmHg SURGICAL HX: Cholecystectomy 2009 at [facility] FAMILY HX: Multiple members- COPD, leukemia, gastric cancer SOCIAL HX: Former 1 to 2 ppd tobacco smoker, quit 2015. Denies alcohol or illicit drug use. Review [...] the note. I personally evaluated the patient [id number] (more content not included)... Normal [facility] Discharge Planning Qyas2rj 0 03-11-2021 Discharge Planning Note2 Discharge Planning: Needs Prior to Discharge (ex. Home Care Orders, IV/O2 prescriptions) f/u appts Planned Dispositionhome Discharge DestinationHome with spouse AMPAC < 20no Anticipated Discharge Dcwd80-Vkh-4651 Discharge Planning Admission Note: 03/11/21 14:55 Pt admitted from his pulmonologists office. He presented with intermittent fevers and a decreased pulse ox with activity. Pt's vital signs are stable and he is afebrile. He has no c/o pain. Awaiting MD orders. Lisa Hernandez RN. sales and operations trainee Note: 03/15/21 1400 Pt dc home with . Pt given meds to bed and remains on 4L 02. Pt educated on discharge instructions and follow up appointment. Stephania Tran RN Discharge Barriersnone Assessment: Discharge Planning Assessment Read12-Eyz-7714 Discharge Planning Assessment Completed byVaishali Siddiqui RNcatering driver Coordinator Primary Contact Name and NumberDarlene (spouse)-[phone] Stated Reason for AdmissionI was having fevers at home.(1) Arrived Fromphysician office (1) PCPLauritarburt Ruiz- alemite operator PCP Last Date [facility] [place] Medication Adherence/Afford/Obtainye s InsuranceMedi A/B/Aetna Sr Supp Lives Withspouse; pt's phone #: [phone] Living Arrangementshouse(1) Recent Falls/ Injury/ Need Assist with Ambulationdenies Prior Level of Functioningindependent with ADLS Equipment Currently Used at HomeN/A Home Care Agency/Support ServicesN/A DME Supplier Name/NumberN/A Home O2/BiPAP/CPAPHome O2 O2 LPM4L [place] Home O2 SupplierHart [facility] Equipment [phone] Diabetic/Supplies NeededN/A Hemodialysis ScheduleN/A Resource/Environmental Concernsnone(1) Social [...] to follow for discharge needs. Vaishali Siddiqui RNcatering driver Coordinator Discharge Documentation: Discharge/Transfer Date/Cqip32-Qki-1014 Electronic Signatures: Lisa Hernandez (RN) (Signed 11-Mar-2021 18:00) Authored: Discharge Planning, Assessment, Discharge Documentation Vaishali Siddiqui (CLIN COOR) (Signed 14-Mar-2021 15:04) Authored: Discharge Planning, Assessment Stephania Tran) (Signed 15-Mar-2021 14:29) Authored: Discharge Planning Last Updated: 15-Mar-2021 14:29 by Stephania Tran (RN) References: 1. Data Referenced From Patient Profile - Adult v2 11-Mar-2021 17:52 Normal [facility] Discharge Nmqyvoq9xk 021 Discharge Profile2 Discharge Orders: Anticipated Discharge Date: Anticipated Discharge Gfrj81-Wnj-2538 Anticipated Discharge Time13:38 DNAR: DNAR Status: none Oxygen: Administer oxygen at 4 via to maintain SpO2 % of. Hospital Course (Home Care/Gold Form): Hospital Course: Hospital Course: include significant abnormal lab values Mr. Brock Coley is a 66 year old Male with aljpd-1-jvzkprfnyp deficiency (on weekly Prolastin-C, 1000mg IV every [...] Physician/Dept/ServiceDr. Viraj Maloney Primary Care Physician Scheduled Date/Wbdq62-Ydq-6490 09:[address] [place] [address] Phone [phone] CommentsPlease arrive 10-15 minutes early, bring photo ID, insurance cards, discharge summary, and a list of current medications. Please call the office if you need to change this appointment. Follow-Up Appointment 02: Physician/Dept/Ryan swanson Tire Stripper Reason for ReferralCOPD Call to Schedule in1 week [facility] [place] Electronic Signatures: Max Champion (Resident)) (Signed 15-Mar-2021 13:39) Authored: Discharge Orders, Hospital Course (Home Care/Gold Form), Provider FINAL REVIEW of Orders, Appointments Franki Palacios (Resident)) (Signed 15-Mar-2021 08:29) Authored: Discharge Orders, Hospital Course (Home Care/Gold Form), Provider FINAL REVIEW of Orders Arleth Solares ( (Resident)) (Signed 11-Mar-2021 20:21) Authored: Discharge Orders, Hospital Course (Home Care/Gold Form), Gold Form - Aircraft Electrician Summary Nash Alyson (PT ACC REP) (Signed 15-Mar-2021 11:40) Authored: Discharge Orders, Appointments Last Updated: 15-Mar-2021 13:39 by Max Champion ( (Resident)) Normal [facility] Follow Up (Pulmonary Medicin e)on 03-11-2021 [...] History: +COPD +Leukemia +gastric cancer Active 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 Vitals Vital Signs Recorded: 11Mar2021 01:01PM Bmgeovztlid79.4 C Heart Rate92 Systolic1 (more content not included)... Normal [facility] Order Reconciliationon 03-11 Order Reconciliation Page 1 Admission Reconciliation Document Reconciliation Type: Admission requested on behalf of Max Champion (Resident) done by Max Champion ( (Resident)) Admission - Reconciliation: 11-Mar-2021 16:07 by: Max Champion (Resident)) Home MedicationsEnteredLast Dose TakenReconciled with current Order Reconciliation Comment/ Additional Information albuterol 90 mcg/inh inhalation aerosol with adapter 2 puff(s) inhaled every 4 hours, As Ebzkmk39-Uio-7274 Albuterol 2.5 mg/ 3 mL Nebulizer Soln (PROVENTIL)DOSE = 3 mL Inhalation Every 4 Hours via Nebulizeralbuterol 90 mcg/inh inhalation aerosol with adapter continued as the inpatient order Albuterol 2.5 mg/ 3 mL Nebulizer Soln Aspirin Low Dose 81 mg oral tablet, chewable 1 orally once a xlw80-Enn-7720 Aspirin Chewable Tablet, ChewableDOSE = 81 mg Oral DailyAspirin Low Dose 81 mg oral tablet, chewable continued as the inpatient order Aspirin Chewable Multiple Vitamins oral tablet 1 tab(s) orally once a ygb26-Bkz-4569 Vitamin B Complex with C EachDOSE = 1 each Oral DailyMultiple Vitamins oral tablet continued as the inpatient order Vitamin B Complex with C primidone 250 mg oral tablet 1 orally every 12 sbcky64-Pcj-8568 Primidone Tablet (MYSOLINE)DOSE = 250 mg Oral [...] inhalation powder 1 puff(s) inhaled once a zpf31-Spf-8944 Reviewed and Held vitamin E 400 intl units oral capsule 1 cap(s) orally once a rhl86-Ylb-6520 Reviewed and Held Normal [facility] Patient Profile - Adult v2on 03-11-2021 [...] e(1) Weight in kg111.3 kilogram(s)(2) Weight in loi071.3 pound(s) Weight Methodstated Scale Typebed Height in [...] From 1. Vital Signs 11-Mar-2021 15:12 Normal [facility] RESPIRATORY CULT./SM,LOWERon 03-11-2021 RESPIRATORY CULT./SM,LOWER PATIENT: BROCK COLEY LOCATION: [address] BILL#: [id number] : 53 AGE: SEX: M ORDERED BY: [...] INDICATED. RESPIRATORY CULT./SM,LOWER CANCELLED 03/12/21 09:05 Normal [facility] Comment on above: Performed By: #### C RP #### [facility] [address] [place] [address] STAPH/MRSA SCREENon 03-11-20 STAPH/MRSA SCREEN PATIENT: JAMIR COLEY LOCATION: [address] BILL#: [id number] : 53 AGE: SEX: M ORDERED BY: MIRIAM MARKS SOURCE: MISC COLLECTED: 03/11/21 18:33 ANTIBIOTICS AT DIO.: RECEIVED : 03/11/21 22:02 SITE: Nasal/Groin and Axilla R E S U L T S STAPH/MRSA SCREEN FINAL 03/13/21 10:45 NO Staphylococcus aureus ISOLATED. Normal [facility] Comment on above: Performed By: #### C RP #### [facility] [address] [place] [address] TH CHEST 2 VIEW PA AND LATon 03-11-2021 TH CHEST 2 VIEW PA AND LAT Patient Name: BROCK COLEY STUDY: TH CHEST 2 VIEW PA AND LAT; 03/11/2021 5:21 pm INDICATION: COPD with HAP. COMPARISON: Prior chest radiograph from 03/03/2021 ACCESSION NUMBER(S): [id number] ORDERING CLINICIAN: MAX CHAMPION FINDINGS: PA and [...] effusion. Electronically signed by: BASILIO OLIVAREZ MD [facility] CT CHEST WO CONTRASTon TH CT CHEST WO CONTRAST STUDY: CT Chest without IV Contrast; 03/11/2021 11:19 AM INDICATION: [place] valve, emphysema, shortness of breath. Chronic respiratory failure with hypoxia. COMPARISON: 03/03/2021 XR Chest. ACCESSION NUMBER(S): [id number] ORDERING CLINICIAN: SALINAS RUIZ MD TECHNIQUE: CT [...] Electronically signed by: CARMENZA SANTOS DO Normal [facility] No Panel Informationon 03-03 Please click [...] lobe. COMPARISON: Chest radiograph 03/03/2021. ACCESSION NUMBER(S): [id number] ORDERING CLINICIAN: AMBER ARROYO FINDINGS: PA chest [...] as stated. This study was interpreted at [place], [place]. Electronically signed by: Ollie HAGER MD Normal [facility] TH CHEST 1 VIEWon 03-03-2021 TH CHEST 1 VIEW Patient Name: BROCK COLEY STUDY: CHEST 1 VIEW; 03/03/2021 5:04 am INDICATION: post LLL endobronchial valve insertion. COMPARISON: 03/02/2021 ACCESSION NUMBER(S): [id number] ORDERING CLINICIAN: ZIYAD WILLINGHAM FINDINGS: AP radiograph [...] pneumothorax. Electronically signed by: MANDY JIMENEZ MD [facility] Daily Progress Note-DACRon 0 03-02-2021 Daily Progress Note-DACR Service: DACR Subjective Data: BROCK COLEY is a 65 year old Male who is Hospital Day # 3. Additional Information: Pt seen and examined at bedside. No acute events overnight per RN. Pt companding of some L chest soreness otherwise has no complaints at this time. Objective Data: Objective Information: T PRBPSpO2 Value36.83855561/7993% Date/Time03/02 9: 9: 9: 9: 9:36 Range(36.2C [...] the note. I personally evaluated the patient my31-Csp-2210 Electronic Signatures: Thang Lorenzo) (Signed 02-Mar-2021 21:32) Authored: Note Completion Co-Signer: Objective Data, Assessment and Plan, Note Completion Amber Arroyo (Resident)) (Signed 02-Mar-2021 15:30) Authored: Service, Subjective Data, Objective Data, Assessment and Plan, Note Completion Last Updated: 02-Mar-2021 21:32 by Thang Lorenzo) [facility] Order Reconciliationon 03-02 Order Reconciliation Page [...] MDI, PRN Shortness of BreathNotes from Pharmacy: [facility] 28-Feb-2021 16:01 Albuterol 90 micrograms/ Inhalation MDI is not required Aspirin Chewable Tablet, ChewableDOSE = 81 mg Oral Daily 28-Feb-2021 16:01 Aspirin Chewable is not required Enoxaparin SubCutaneous (LOVENOX)DOSE = 40 mg SubCutaneous Every 24 Hours 28-Feb-2021 16:01 Enoxaparin SubCutaneous is not required Fluticasone 100 microgram -Salmeterol 50 microgram/ Inh Powder (ADVAIR DISKUS)DOSE = 1 inhalation Every 12 HoursNotes from Pharmacy: [facility] 01-Mar-2021 13:15 Fluticasone 100 microgram -Salmeterol [...] weekly o (more content not included)... Normal [facility] Radiologyon 03-02-2021 XR Chest Single view Normal [facility] Work Phone: [phone] CHEST 1 VIEWon 03-02-2021 TH CHEST 1 VIEW Patient Name: BROCK COLEY STUDY: CHEST 1 VIEW; 03/02/2021 4:23 am INDICATION: AM CXR, daily cxr following endobronchial valve placement, eval for pneumothorax. COMPARISON: 03/01/2021 ACCESSION NUMBER(S): [id number] ORDERING CLINICIAN: COLTON RICH FINDINGS: Portable AP [...] Electronically signed by: BASILIO OLIVAREZ MD Normal [facility] Daily Progress Note-DACRon 0 03-01-2021 Daily Progress Note-DACR Service: DACR Subjective Data: BROCK COLEY is a 65 year old Male who is Hospital Day # 2. -No acute events overnight -Patient feeling well this AM, no dyspnea. Objective Data: Objective Information: T PRBPSpO2 Value36.20972531/5797% Date/Time03/01 14: 14: 14: 14: 14:35 Range(35.7C [...] the following: I personally evaluated the patient [id number]-Hjn-5667 Comments/ Additional Findings 65-year-old man with alpha-1 [...] Updated: 01-Mar-2021 16:07 by Thang Lorenzo) Normal [facility] Discharge Planning Swoj3uh 0 03-01-2021 Discharge Planning Note2 Discharge Planning: Needs Prior to Discharge (ex. Home Care Orders, IV/O2 prescriptions) F/u appts Discharge Barriers (ex. Avoidable days, wait guardianship, pt refuse leave) None Planned Dispositionhome Discharge DestinationHome PCP/Next Provider Follow Up Scheduledyes Patient/Silk Presser Stated GoalYes, Home no needs Hoffman of Choice Explainedno Anticipated Discharge Dzto95-Ice-3459 Discharge Planning 03/01/21 11:30 AM Transitional Care Coordination Progress Note: Patient discussed during interdisciplinary rounds. Team members present: TCC and MD Plan per Medical/Surgical team: Needs to be monitored 3 days after Bronch procedure, monitoring labs and vitals Payer: Medicare Status: Observation Discharge disposition: Home no needs Potential Barriers: None at this time ADOD: 03/04 M. Kusum Eubanks RN BSN Transitional Director Of Finance [phone] Transitional Director Of Finance Note: 03/01/2021@ 13:53 Met with patient/ to introduce myself, role and discus discharge planning. Patient lives with his spouse. Independent in all ADL's. Requires no assist devices for ambulation. Denies active home care or home care needs. Will continue to monitor patient for all home going needs. Abbey Portillo RN [facility] [phone] 03/03/21 9:30 AM Transitional Care Coordination Progress Note: Patient discussed during interdisciplinary rounds. Team members present: TCC and MD Plan per Medical/Surgical team: Pt scheduled for priority Tomogram today, monitoring labs and vitals Payer: Medicare Status: Inpatient Discharge disposition: Home no needs Potential Barriers: None at this time ADOD: 03/04 M. Kusum Eubanks RN BSN Transitional Director Of Finance [phone] Assessment: Discharge Planning Assessment Bqqk24-Ldz-7539 Discharge Planning Assessment Completed byAbbey Portillo RN [facility] [phone] Primary Contact Name and NumberDarlenana Valles () [phone] Tacho Ruiz DO Preferred Pharmacy Name/Location[facility] [...] by Aditya Arnold (ADV CLIN N) Normal [facility] Discharge Oyaqmpi0je 03-01-2 021 Discharge Profile2 Discharge Orders: Anticipated Discharge Date: Anticipated Discharge Rghd02-Xpf-2369 DNAR: DNAR Status: none Hospital Course (Home [...] in the next few days. Please call [phone] ( [phone] if you do not hear back by then to inquire about appointment. Please arrive 15 minutes early and bring photo ID, insurance card, and medication list. If unable to attend appointment, please call to cancel within 24 hours. Electronic Signatures: Colton Rcih ( (Resident)) (Signed 01-Mar-2021 15:54) Authored: Discharge Orders, Hospital Course (Home Care/Gold Form), Gold Form - Aircraft Electrician Summary Amber Arroyo (Resident)) (Signed 03-Mar-2021 12:15) Authored: Discharge Orders, Provider FINAL REVIEW of Orders, Appointments Last Updated: 03-Mar-2021 12:15 by Amber Arroyo (Resident)) Normal [facility] GLUCOSE-POCTon 03-01-2021 Glucose [Mass/Vol] 110 mg/dL High 74 - 99 [facility] Comment on above: Performed By: #### C BCDF #### [facility] [address] [place] [address] Glucose [Mass/Vol] 90 mg/dL Normal 74 - 99 [facility] Comment on above: Performed By: #### C RP #### [facility] [address] [place] [address] Glucose [Mass/Vol] 124 mg/dL High 74 - 99 [facility] Comment on above: Performed By: #### G KATELYN ####[id number] [place] [address] Laboratory - Chemistry and C hemistry - [...] am INDICATION: pneumothorax. COMPARISON: 02/28/2021 ACCESSION NUMBER(S): [id number] ORDERING CLINICIAN: BRANDON EISENBERG FINDINGS: AP radiograph [...] as stated. This study was interpreted at [facility], [place], [place]. Electronically signed by: CAMERON SALMERON MD [facility] Consult-Thoracic and Esophag eal Surgeryon 02-28-2021 [...] Known Allergies: Objective: Objective Information: T PRBPSpO2 Value36.51152653/5499% Date/Time03/01 6: 6: 6: 6: 6:50 Range(35.7C [...] Eisenberg. Madhuri Nur MD PGY-2 Thoracic Surgery [id number] Consult Status: Consult Order ID: [id number] Attestation: Note Completion: I am a: Resident/Fellow [...] the note. I personally evaluated the patient [id number] Electronic Signatures: Madhuri Nur (Resident)) (Signed 01-Mar-2021 09:00) Authored: Service, History of Present Illness, Review Family/Social History and ROS, Allergies, Objective, Assessment/Recommendation s, Note Completion Brandon Eisenberg) (Signed 14-Mar-2021 16:38) Authored: Note Completion Co-Signer: History of Present Illness, Objective, Note Completion Last Updated: 14-Mar-2021 16:38 by Brandon Eisenberg) References: 1. Data Referenced From Consult-Thoracic and Esophageal Surgery 28-Feb-2021 18:32 Normal [facility] Consult-Thoracic and Esophageal Surgery Service: Service: [...] Known Allergies: Objective: Objective Information: T PRBPSpO2 Value36.16634892/7698% Date/Time02/28 18: 18: 18: 18: 18: Range(35.7C [...] for a pneumothorax, and is [place] to [place] [address]. Thoracic surgery consulted to evaluate and for possible chest tube placement. Recs: -daily CXR -if pt develops a pneumothorax, will place a chest tube -D/W primary team, Dr Ruiz Pt seen and examined; I discussed the pt with Dr Eisenberg Consult Status: Consult Order ID: [id number] Send Provider Communication: Note Recipients: Jeferson Ruiz, - [id number] [] Attestation: Note Completion: Provider/Team Pager #[phone] Electronic Signatures: Gerber Alas (PHYSICIAN)) (Signed 28-Feb-2021 19:10) Authored: Service, History of Present Illness, Review Family/Social History and ROS, Allergies, Objective, Assessment/Recommendation s, Provider Communication, Note Completion Last Updated: 28-Feb-2021 19:10 by Gerber Alas (TERE (PHYSICIAN)) Normal [facility] No Panel Informationon 02-28 [email or web address]} [facility] Work Phone: [facility] Work Phone: Order Reconciliationon 02-28 Order Reconciliation Page 1 Admission Reconciliation Document Reconciliation Type: Admission requested on behalf of Osiel Marie (Resident) done by Osiel Marie ( (Resident)) Admission - Reconciliation: 28-Feb-2021 18:50 by: Osiel Marie ( (Resident)) Home MedicationsEnteredLast Dose TakenReconciled with current Order Reconciliation Comment/ Additional Information albuterol 90 mcg/inh inhalation aerosol with adapter 2 puff(s) inhaled every 4 hours, As Fkptrx60-Fnu-3626 Albuterol 90 micrograms/ Inhalation MDI (PROVENTIL, VENTOLIN)DOSE = 2 inhalation Every 4 Hours via MDI, PRN Shortness of BreathNotes from Pharmacy: RCRAalbuterol 90 mcg/inh inhalation aerosol with adapter reconciled with the existing inpatient order Albuterol 90 micrograms/ Inhalation MDI Aspirin Low Dose 81 mg oral tablet, chewable 1 orally once a utt21-Gpq-1814 Aspirin Chewable Tablet, ChewableDOSE = 81 mg Oral DailyAspirin Low Dose 81 mg oral tablet, chewable reconciled with the existing inpatient order Aspirin Chewable Multiple Vitamins oral tablet 1 tab(s) orally once a vzq65-Ehi-3263 Multivitamin with Minerals TabletDOSE = 1 tablet(s) Oral DailyMultiple Vitamins oral tablet reconciled with the existing inpatient order Multivitamin with Minerals primidone 250 mg oral tablet 1 orally every 12 uzftn26-Fma-1963 Primidone Tablet (MYSOLINE)DOSE = 250 mg Oral [...] inhalation powder 1 puff(s) inhaled once a zat45-Khe-1536 Tiotropium 18 micrograms/ Inhalation Capsule (SPIRIVA HANDIHALER)DOSE [...] oral capsule 1 cap(s) orally once a fep70-Txc-4166 Reviewed and Held Additional Current Orders Enoxaparin SubCutaneous (LOVENOX)DOSE = 40 mg SubCutaneous Every 24 Hours Melatonin TabletDOSE = 3 mg Oral At Bedtime, PRN Insomnia Normal [facility] Radiologyon 02-28-2021 XR Chest Single view Normal [facility] Work Phone: [phone] CHEST 1 VIEWon 02-28-2021 TH CHEST 1 VIEW Patient Name: BROCK COLEY STUDY: CHEST 1 VIEW; 02/28/2021 3:44 pm INDICATION: s/p LLL endobronchial valve placement x5. COMPARISON: None. ACCESSION NUMBER(S): [id number] ORDERING CLINICIAN: EMERSON LUIS FINDINGS: CARDIOMEDIASTINAL SILHOUETTE: [...] Electronically signed by: Ollie HAGER MD Normal [facility] V/Q QUANTon 02-28-2021 V/Q QUANT Patient Name: BROCK COLEY STUDY: V/Q QUANT; 02/28/2021 9:55 am INDICATION: Emphysema, respiratory failure. 65-year-old male with emphysema in setting alpha-1 antitrypsin deficiency and positive smoking history; pre-op evaluation. COMPARISON: CT chest dated 12/15/2020 ACCESSION NUMBER(S): [id number] ORDERING CLINICIAN: SALINAS RUIZ TECHNIQUE: DIVISION OF [...] as stated. This study was interpreted at [facility], [place], [place]. Electronically signed by: ALETA RAMIREZ MD [facility] Consult (Pulmonary Medicine) on 12-15-2020 Consult (Pulmonary Medicine) Diagnoses/Problems Emphysema/COPD (492.8) (J43.9) Former smoker (V15.82) (Z87.891) Chronic respiratory failure with hypoxia (518.83,799.02) (J96.11) Dbcpz-5-zvmsysdlfxt deficiency (273.4) (E88.01) Pre-op evaluation (V72.84) (Z01.818) [...] proptosis. Hematologic/L (more content not included)... Normal [facility] Falls Risk Screeningon 12-15 Fall risk assessment a) No falls within the last year [facility] Work Phone: Falls Risk Screening b) No [facility] Work Phone: TH CT CHEST WO CONTRASTon TH CT CHEST WO CONTRAST Patient Name: BROCK COLEY STUDY: CT CHEST WO CONTRAST; 12/15/2020 2:15 pm INDICATION: SOB, COPD. COMPARISON: None. ACCESSION NUMBER(S): [id number] ORDERING CLINICIAN: SALINAS RUIZ TECHNIQUE: Helical data [...] as stated. This study was interpreted at [facility], [place], [place]. Electronically signed by: MANDY JIMENEZ MD Normal [facility] Blood Gas Art, with Sarah Baumann, [place] 12-06-2020 a/A Ratio Art 60.30 % Normal >=0.80 [facility] Comment on above: Performed By: #### 4 [id number] #### [facility] [address] [place] [address] AaDO2 Art 38.4 mmHg High 5.0-15.0 [facility] Comment on above: Performed By: #### 4 [id number] #### [facility] [address] [place] [address] Allens Test Not Applicable Normal [facility] Comment on above: Performed By: #### 4 [id number] #### [facility] [address] [place] [address] Base Excess Arterial 1.0 mmol/L Low >=2.8 [facility] Comment on above: Performed By: #### 4 [id number] #### [facility] [address] [place] [address] cCa2+ Art 4.79 mg/dL Normal 4.40-5.30 [facility] Comment on above: Performed By: #### 4 [id number] #### [facility] [address] [place] [address] cCl- Art 106.0 mmol/L Normal 101.0-111.0 [facility] Comment on above: Performed By: #### 4 [id number] #### [facility] [address] [place] [address] cGlu Art 107.0 mg/dL Normal 55.0-199.0 [facility] Comment on above: Performed By: #### 4 [id number] #### [facility] [address] [place] [address] cK+ Art 4.3 mmol/L Normal 3.5-5.3 [facility] Comment on above: Performed By: #### 4 [id number] #### [facility] [address] [place] [address] cLac Art 1.0 mmol/L Low 5.0-14.0 [facility] Comment on above: Performed By: #### 4 [id number] #### [facility] [address] [id number] bar pilot+ Art 141.0 mmol/L Normal 135.0-145.0 [facility] Comment on above: Performed By: #### 4 [id number] #### [facility] [address] [place] [address] Drawn by dylon Invalid Interpretation Code [facility] Comment on above: Performed By: #### 4 [id number] #### [facility] [address] [place] [address] FCOHb Art 1.0 % Low 1.5-4.9 [facility] Comment on above: Result Comment: Refe rence range Nonsmoker <1.5% Smoker <5.0% Heavy Smoker <9.0% Performed By: #### 4 [id number] #### [facility] [address] [place] [address] FIO2 BG 21 Invalid Interpretation Code [facility] Comment on above: Performed By: #### 4 [id number] #### [facility] [address] [place] [address] FMetHb Art 0.6 % Normal 0.0-1.9 [facility] Comment on above: Performed By: #### 4 [id number] #### [facility] [address] [place] [address] FO2Hb Art 90.4 % Low 93.0-100.0 [facility] Comment on above: Performed By: #### 4 [id number] #### [facility] [address] [place] [address] HCO3 (Bld) [Moles/Vol] 25.1 mmol/L Normal 22.0-26.0 [facility] Comment on above: Performed By: #### 4 [id number] #### [facility] [address] [place] [address] Hemoglobin (Bld) [Mass/Vol] 14.2 g/dL Normal 12.0-17.0 [facility] Comment on above: Performed By: #### 4 [id number] #### [facility] [address] [place] [address] Oxygen saturation in Blood 91.8 % Low 95.0-100.0 [facility] Comment on above: Performed By: #### 4 [id number] #### [facility] [address] [place] [address] P CO2 Arterial 41.4 mmHg Normal 35.0-45.0 [facility] Comment on above: Performed By: #### 4 [id number] #### [facility] [address] [place] [address] P O2 Arterial 58.4 mmHg Low 80.0-100.0 [facility] Comment on above: Performed By: #### 4 [id number] #### [facility] [address] [place] [address] pH Arterial 7.405 Normal 7.350-7.450 [facility] Comment on above: Performed By: #### 4 [id number] #### [facility] [address] [place] [address] Sample Site R Brachial Normal [facility] Comment on above: Performed By: #### 4 [id number] #### [facility] [address] [place] [address] Sample Type Arterial Draw Normal [facility] Comment on above: Performed By: #### 4 [id number] #### [facility] [address] [place] [address] Physician Orderon 12-06-2020 Physician Order [id number]:12 7 Normal [facility] Vital Signs Date Time Vital Sign Value Performing Clinician Facility 05-04-2021 13:45-0400 Body height 170.1 cm [facility] Work Phone: DI-Qijctii-Mgimlg n [facility] Work Phone: 05-04-2021 13:45-0400 Body mass index (BMI) [Ratio] 39.23 kg/m2 [employer] [facility] [employer] Work Phone: XM-Aillhlv-Isualk n [facility] Work Phone: 05-04-2021 13:45-0400 Body surface area Derived from formula 2.22 m2 [employer] Work Phone: CW-Kxnftjr-Wkeqqg n [facility] Work Phone: 05-04-2021 13:45-0400 Body temperature 97.7 [degF] [employer] Work Phone: MB-Dyrsjyq-Fklgxt n [facility] Work Phone: 05-04-2021 13:45-0400 Body weight 113.51 kg [facility] Work Phone: NK-Jovcwei-Eukvwc n [facility] Work Phone: 05-04-2021 13:45-0400 Diastolic blood pressure 81 mm[Hg] [facility] Work Phone: [facility]gbp [facility] Work Phone: 05-04-2021 13:45-0400 Heart rate 105 /min [facility] Work Phone: NZ-Igtneru-Ctssbr n [facility] Work Phone: 05-04-2021 13:45-0400 Respiratory rate 16 /min Jeferson P Samsa Work Phone: AW-Jfsscio-Juwjsw n [facility] Work Phone: 05-04-2021 13:45-0400 SaO2% (BldA) [Mass fraction] 95 % Jeferson P Samsa Work Phone: [facility] Work Phone: 05-04-2021 13:45-0400 Systolic blood pressure 153 mm[Hg] Jeferson P Samsa Work Phone: [facility] Work Phone: 05-04-2021 13:45-0400 0 1 Jeferson P Samsa Work Phone: [facility] Work Phone: Comment on above: [employer] 03-15-2021 06:50-0400 Body temperature 97.88 [degF] Jeferson Samsa Other Phone: [facility] 03-15-2021 06:50-0400 Diastolic blood pressure 79 mm[Hg] Jeferson Samsa Other Phone: [facility] 03-15-2021 06:50-0400 Heart rate 98 /min Jeferson Samsa Other Phone: [facility] 03-15-2021 06:50-0400 Respiratory rate 18 /min Jeferson Samsa Other Phone: [facility] 03-15-2021 06:50-0400 SaO2% (BldA) [Mass fraction] 93 % Jeferson Samsa Other Phone: [facility] 03-15-2021 06:50-0400 Systolic blood pressure 151 mm[Hg] Jeferson Samsa Other Phone: [facility] 12-15-2020 14:25-0400 Body height 170.1 cm Jeferson P Samsa Work Phone: [facility] Work Phone: 12-15-2020 14:25-0400 Body mass index (BMI) [Ratio] 38.8 kg/m2 [employer] Work Phone: [facility] Work Phone: 12-15-2020 14:25-0400 Body surface area Derived from formula 2.21 m2 [employer] Work Phone: [facility] Work Phone: 12-15-2020 14:25-0400 Body temperature 97.88 [degF] [employer]eferson [employer] Work Phone: [facility] Work Phone: 12-15-2020 14:25-0400 Body weight 112.27 kg [employer] Work Phone: [facility] Work Phone: 12-15-2020 14:25-0400 Diastolic blood pressure 82 mm[Hg] [employer]erson P [employer] Work Phone: [facility] Work Phone: 12-15-2020 14:25-0400 Heart rate 96 /min Jeferson Woody [employer] Work Phone: [facility] Work Phone: 12-15-2020 14:25-0400 Respiratory rate 17 /min [employer] Work Phone: [facility] Work Phone: 12-15-2020 14:25-0400 SaO2% (BldA) [Mass fraction] 97 % [facility] Work Phone: [facility] Work Phone: 12-15-2020 14:25-0400 Systolic blood pressure 133 mm[Hg] [facility] Work Phone: [facility] Work Phone: 12-15-2020 14:25-0400 0 1 Jeferson Ruiz Work Phone: [facility] Work Phone: Comment on above: [employer] 12-15-2020 14:24-0400 Body temperature 97.88 [degF] Jeferson Ruiz Work Phone: [facility] Work Phone: 12-15-2020 14:24-0400 Heart rate 91 /min Jeferson Ruiz Work Phone: [facility] Work Phone: 12-15-2020 14:24-0400 SaO2% (BldA) [Mass fraction] 94 % Jeferson Ruiz Work Phone: [facility] Work Phone: Encounters Encounter Date Encounter Type Care Provider Facility Start: 05-08-2024 End: 05-08-2024 ambulatory TATIANA VACA [facility] Start: 05-06-2024 ambulatory NOREEN [facility] Start: 04-08-2024 ambulatory [facility] Start: 03-28-2024 End: 03-28-2024 [facility] Start: 03-18-2024 End: 03-18-2024 ambulatory [facility] Start: 03-11-2024 End: 03-11-2024 ambulatory JOSE LUIS LOWE Not Available Start: [facility] Start: 12-20-2023 End: 12-20-2023 ambulatory JOSE LUIS LOWE Not Available Start: 12-10-2023 End: 12-10-2023 ambulatory [facility] Start: 11-20-2023 End: 11-20-2023 ambulatory ANÍBAL SANDIE [facility] Start: 10-12-2023 End: 10-12-2023 ambulatory TATIANA VACA [facility] Start: 12-06-2022 End: 01-03-2023 ambulatory JEFERSON [...] encounter procedure Jeferson P Samsa Work Phone: [facility] Work Phone: Start: 05-04-2021 PST, Provider: RALPH JENKINS 6TH FLR PFT WALKWAY,PULM, Status: Pen, Time: 10:45 AM Jeferson Ruiz Work Phone: [facility] Work Phone: Start: 05-04-2021 Patient encounter procedure Jefersonnelda Ruiz Work Phone: [facility] Work Phone: Start: 05-04-2021 PFT, Provider: RALPH JENKINS 6TH FLR PFT RM1,PULM, Status: Pen, Time: 8:45 AM Jeferson Ruiz Work Phone: [facility] Work Phone: Start: 05-03-2021 AUDIT Jeferson Ruiz Work Phone: [facility] Work Phone: Start: 03-11-2021 End: 03-15-2021 Evaluation and management of inpatient Daryl Kearns [facility] [address] MS [address] A Start: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
== END 2024-05-13 10:07 | disposition home or self-care (01) ==
LOC: CT 10:06
PROVIDERS: PCP Nurse Practitioner Family; Visit Provider Internal Medicine
DX: R91.8 Other nonspecific abnormal finding of lung field (principal)
CPT/HCPCS: 71250

== ENCOUNTER 2024-06-04 07:37 | Outpatient (RCR) | payer MEDICARE, SELFPAY ==
[2024-05-07 13:08] VITALS: PULSE 78; TEMP 36.5; O2SAT 98
[2024-05-07] MEDS: PROTEINASE INHIBITOR IV (13:23)
[2024-05-07] MEDS: ALPHA IV (13:23)
[2024-05-14 13:08] VITALS: BP 146/79; PULSE 68; TEMP 36.3; O2SAT 98
[2024-05-14] MEDS: ALPHA IV (13:35)
[2024-05-14] MEDS: PROTEINASE INHIBITOR IV (13:35)
--- NOTE | 2024-05-14 13:35 | PC.NURSE ---
1300Arrival ambulatory, oxygen at lpm nc. vs obtained. switched to wall oxygen at 3 lpm nc.
[2024-05-21 13:00] VITALS: BP 154/83; PULSE 83; TEMP 37.1; O2SAT 93
[2024-05-21] MEDS: PROTEINASE INHIBITOR IV (13:32)
[2024-05-21] MEDS: ALPHA IV (13:32)
--- NOTE | 2024-05-21 13:39 | PC.NURSE ---
1300: Pt. to [facility] amb. for weekly infusion. Weight obtained, called to pharmacy. Seated in recliner. O2 intact at 4L n/c. IV initiated, see documentation. Pt. tolerated well. Offered snack or beverage, pt. declines. 1332: IV Prolastin initiated at this time.
[2024-05-28 13:10] VITALS: BP 149/74; PULSE 59; TEMP 36.6; O2SAT 97
[2024-05-28] MEDS: PROTEINASE INHIBITOR IV (13:26)
[2024-05-28] MEDS: ALPHA IV (13:26)
[2024-06-04 13:14] VITALS: BP 131/79; PULSE 7; TEMP 35; O2SAT 985
[2024-06-04] MEDS: ALPHA IV (13:42)
[2024-06-04] MEDS: PROTEINASE INHIBITOR IV (13:42)
== END 2024-06-05 23:59 | disposition home or self-care (01) ==
LOC: INF 07:37
PROVIDERS: PCP Nurse Practitioner Family; Visit Provider Internal Medicine
DX: E88.01 Alpha-1-antitrypsin deficiency (principal); J43.2 Centrilobular emphysema
CPT/HCPCS: 96365; J0256

== ENCOUNTER 2024-07-02 07:41 | Outpatient (RCR) | payer MEDICARE, SELFPAY ==
[2024-06-11 13:17] VITALS: BP 125/70; PULSE 70; TEMP 36.5; O2SAT 95
[2024-06-11] MEDS: PROTEINASE INHIBITOR IV (13:23)
[2024-06-11] MEDS: ALPHA IV (13:23)
[2024-06-18 13:05] VITALS: BP 132/77; PULSE 79; TEMP 36.9; O2SAT 94
[2024-06-18] MEDS: ALPHA IV (13:15)
[2024-06-18] MEDS: PROTEINASE INHIBITOR IV (13:15)
[2024-06-25 13:11] VITALS: PULSE 62; TEMP 36.4; O2SAT 95
[2024-06-25] MEDS: ALPHA-1-PROTEINASE INHIBITOR 6,348 MG in EMPTY BAG 0 ML 253.92 MG IV (13:19)
[2024-07-02 13:12] VITALS: BP 133/83; PULSE 64; TEMP 37.1; O2SAT 95
[2024-07-02] MEDS: ALPHA-1-PROTEINASE INHIBITOR 6,348 MG in EMPTY BAG 0 ML 240 MG IV (13:21)
== END 2024-07-02 14:19 | disposition home or self-care (01) ==
LOC: INF 07:41
PROVIDERS: PCP Nurse Practitioner Family; Visit Provider Internal Medicine
DX: E88.01 Alpha-1-antitrypsin deficiency (principal); J43.2 Centrilobular emphysema
CPT/HCPCS: 96365; J0256

== ENCOUNTER 2024-07-31 07:44 | Outpatient (RCR) | payer MEDICARE, SELFPAY ==
[2024-07-09 13:08] VITALS: BP 135/73; PULSE 66; TEMP 35.8; O2SAT 96
[2024-07-09] MEDS: ALPHA IV (13:24)
[2024-07-09] MEDS: PROTEINASE INHIBITOR IV (13:24)
[2024-07-16 12:55] VITALS: BP 120/69; PULSE 66; TEMP 35.9; O2SAT 95
[2024-07-16] MEDS: ALPHA IV (13:15)
[2024-07-16] MEDS: PROTEINASE INHIBITOR IV (13:15)
[2024-07-23 12:55] VITALS: BP 141/74; PULSE 77; TEMP 35.8; O2SAT 94
[2024-07-23] MEDS: ALPHA-1-PROTEINASE INHIBITOR 6,528 MG in EMPTY BAG 0 ML 261.12 MG IV (13:19)
[2024-07-31 12:55] VITALS: BP 138/94; PULSE 73; TEMP 36.3; O2SAT 94
[2024-07-31] MEDS: ALPHA-1-PROTEINASE INHIBITOR 6,528 MG in EMPTY BAG 0 ML 240 MG IV (13:36)
== END 2024-08-01 12:35 | disposition home or self-care (01) ==
LOC: INF 07:44
PROVIDERS: PCP Nurse Practitioner Family
DX: E88.01 Alpha-1-antitrypsin deficiency (principal); J43.2 Centrilobular emphysema
CPT/HCPCS: 96365; J0256

== ENCOUNTER 2024-09-03 07:38 | Outpatient (RCR) | payer MEDICARE, SELFPAY ==
[2024-08-07 13:12] VITALS: BP 143/81; PULSE 74; TEMP 36.3; O2SAT 95
[2024-08-07] MEDS: ALPHA-1-PROTEINASE INHIBITOR 6,528 MG in EMPTY BAG 0 ML 240 MG IV (13:23)
[2024-08-13 13:18] VITALS: PULSE 70; TEMP 36; O2SAT 96
[2024-08-13] MEDS: ALPHA-1-PROTEINASE INHIBITOR 6,528 MG in EMPTY BAG 0 ML 240 MG IV (13:36)
[2024-08-20 13:22] VITALS: BP 144/83; PULSE 83; TEMP 37.1; O2SAT 94
[2024-08-20] MEDS: ALPHA-1-PROTEINASE INHIBITOR 6,222 MG in EMPTY BAG 1 ML 240 MG IV (13:26)
[2024-08-27 13:24] VITALS: BP 126/78; PULSE 68; TEMP 36.4; O2SAT 95
[2024-08-27] MEDS: ALPHA-1-PROTEINASE INHIBITOR 6,222 MG in EMPTY BAG 1 ML 240 MG IV (13:28)
[2024-09-03 13:01] VITALS: BP 129/82; PULSE 80; TEMP 36.7; O2SAT 93
[2024-09-03] MEDS: ALPHA-1-PROTEINASE INHIBITOR 6,222 MG in EMPTY BAG 0 ML 240 MG IV (13:33)
== END 2024-09-05 23:59 | disposition home or self-care (01) ==
LOC: INF 07:38
PROVIDERS: PCP Nurse Practitioner Family; Visit Provider Internal Medicine
DX: E88.01 Alpha-1-antitrypsin deficiency (principal); J43.2 Centrilobular emphysema
CPT/HCPCS: 96365; J0256

== ENCOUNTER 2024-10-02 07:38 | Outpatient (RCR) | payer MEDICARE, SELFPAY ==
[2024-09-10 13:09] VITALS: BP 129/80; PULSE 60; TEMP 36.4; O2SAT 96
[2024-09-10] MEDS: ALPHA-1-PROTEINASE INHIBITOR 6,222 MG in EMPTY BAG 1 ML 240 MG IV (13:52)
[2024-09-17 13:00] VITALS: BP 154/83; PULSE 69; TEMP 36.6; O2SAT 95
[2024-09-17] MEDS: ALPHA-1-PROTEINASE INHIBITOR 6,468 MG in EMPTY BAG 0 ML 240 MG IV (13:16)
[2024-09-24 12:59] VITALS: BP 127/77; PULSE 72; TEMP 36.3; O2SAT 93
[2024-09-24] MEDS: ALPHA-1-PROTEINASE INHIBITOR 6,468 MG in EMPTY BAG 0 ML 240 MG IV (13:23)
[2024-10-02 13:02] VITALS: BP 157/73; PULSE 57; TEMP 36.5; O2SAT 93
[2024-10-02] MEDS: ALPHA-1-PROTEINASE INHIBITOR 6,528 MG in EMPTY BAG 0 ML 240 MG IV (13:32)
== END 2024-10-03 07:55 | disposition home or self-care (01) ==
LOC: INF 07:38
PROVIDERS: PCP Nurse Practitioner Family; Visit Provider Internal Medicine
DX: E88.01 Alpha-1-antitrypsin deficiency (principal); J43.2 Centrilobular emphysema
CPT/HCPCS: 96365; J0256

== ENCOUNTER 2024-10-29 07:33 | Outpatient (RCR) | payer MEDICARE, SELFPAY ==
[2024-10-08 12:55] VITALS: BP 143/86; PULSE 71; TEMP 36.1; O2SAT 94
[2024-10-08] MEDS: ALPHA-1-PROTEINASE INHIBITOR 6,528 MG in EMPTY BAG 0 ML 240 MG IV (13:30)
[2024-10-16 12:55] VITALS: BP 150/82; PULSE 71; TEMP 36.6; O2SAT 94
[2024-10-16] MEDS: ALPHA-1-PROTEINASE INHIBITOR 6,528 MG in EMPTY BAG 0 ML 240 MG IV (13:36)
[2024-10-22 12:55] VITALS: BP 121/67; PULSE 66; TEMP 36.8; O2SAT 95
[2024-10-22] MEDS: ALPHA-1-PROTEINASE INHIBITOR 6,576 MG in EMPTY BAG 0 ML 240 MG IV (13:24)
[2024-10-29 13:00] VITALS: BP 131/82; PULSE 72; TEMP 36.9; O2SAT 93
[2024-10-29] MEDS: ALPHA-1-PROTEINASE INHIBITOR 6,528 MG in EMPTY BAG 0 ML 240 MG IV (13:32)
== END 2024-10-29 14:27 | disposition home or self-care (01) ==
LOC: INF 07:33
PROVIDERS: PCP Nurse Practitioner Family; Visit Provider Internal Medicine
DX: E88.01 Alpha-1-antitrypsin deficiency (principal); J43.2 Centrilobular emphysema
CPT/HCPCS: 96365; J0256

== ENCOUNTER 2024-12-03 07:41 | Outpatient (RCR) | payer MEDICARE, SELFPAY ==
[2024-11-06 11:30] VITALS: BP 169/83; PULSE 71; TEMP 36.6
[2024-11-06] MEDS: PROTEINASE INHIBITOR IV (11:39)
[2024-11-06] MEDS: ALPHA IV (11:39)
[2024-11-12 12:19] VITALS: BP 146/81; PULSE 72; TEMP 36.7; O2SAT 96
[2024-11-12] MEDS: ALPHA-1-PROTEINASE INHIBITOR 6,756 MG in EMPTY BAG 0 ML 240 MG IV (12:33)
[2024-11-19 12:55] VITALS: BP 121/74; PULSE 67; TEMP 36.7; O2SAT 95
[2024-11-19] MEDS: ALPHA-1-PROTEINASE INHIBITOR 6,522 MG in EMPTY BAG 0 ML 240 MG IV (13:22)
[2024-11-26 13:00] VITALS: BP 144/79; PULSE 65; TEMP 36.8; O2SAT 96
[2024-11-26] MEDS: ALPHA-1-PROTEINASE INHIBITOR 6,522 MG in EMPTY BAG 0 ML 240 MG IV (13:18)
[2024-12-03 12:50] VITALS: BP 145/79; PULSE 61; TEMP 36.3; O2SAT 93
[2024-12-03] MEDS: PROTEINASE INHIBITOR IV (13:31)
[2024-12-03] MEDS: ALPHA IV (13:31)
== END 2024-12-03 23:59 | disposition home or self-care (01) ==
LOC: INF 07:41
PROVIDERS: PCP Nurse Practitioner Family; Visit Provider Internal Medicine
DX: E88.01 Alpha-1-antitrypsin deficiency (principal); J43.2 Centrilobular emphysema
CPT/HCPCS: 96365; J0256

== ENCOUNTER 2024-12-31 07:35 | Outpatient (RCR) | payer MEDICARE, SELFPAY ==
[2024-12-10 13:02] VITALS: BP 146/82; PULSE 67; TEMP 36.9; O2SAT 95
[2024-12-10] MEDS: PROTEINASE INHIBITOR IV (13:21)
[2024-12-10] MEDS: ALPHA IV (13:21)
[2024-12-17 12:57] VITALS: BP 138/76; PULSE 58; TEMP 36.9; O2SAT 95
[2024-12-17] MEDS: ALPHA-1-PROTEINASE INHIBITOR 6,576 MG in EMPTY BAG 0 ML 240 MG IV (13:28)
[2024-12-24 12:55] VITALS: BP 129/71; PULSE 75; TEMP 36.6; O2SAT 95
[2024-12-24] MEDS: ALPHA-1-PROTEINASE INHIBITOR 6,576 MG in EMPTY BAG 0 ML 240 MG IV (13:19)
[2024-12-31 12:30] VITALS: BP 173/82; PULSE 68; TEMP 36.8; O2SAT 92
[2024-12-31] MEDS: PROTEINASE INHIBITOR IV (13:00)
[2024-12-31] MEDS: ALPHA IV (13:00)
== END 2025-01-01 08:18 | disposition home or self-care (01) ==
LOC: INF 07:35
PROVIDERS: PCP Nurse Practitioner Family; Visit Provider Internal Medicine
DX: E88.01 Alpha-1-antitrypsin deficiency (principal); J43.2 Centrilobular emphysema
CPT/HCPCS: 96365; J0256

== ENCOUNTER 2025-01-28 10:35 | Outpatient (RCR) | payer MEDICARE, SELFPAY ==
[2025-01-07 13:03] VITALS: BP 131/72; PULSE 65; TEMP 36.6; O2SAT 95
[2025-01-07] MEDS: PROTEINASE INHIBITOR IV (13:20)
[2025-01-07] MEDS: ALPHA IV (13:20)
[2025-01-14 13:04] VITALS: BP 137/68; PULSE 68; TEMP 36.8; O2SAT 94
[2025-01-14] MEDS: ALPHA IV (13:20)
[2025-01-14] MEDS: PROTEINASE INHIBITOR IV (13:20)
[2025-01-21 13:03] VITALS: BP 137/83; TEMP 36.9; O2SAT 93
[2025-01-21] MEDS: PROTEINASE INHIBITOR IV (13:13)
[2025-01-21] MEDS: ALPHA IV (13:13)
[2025-01-28 12:57] VITALS: BP 143/81; PULSE 67; TEMP 36.6; O2SAT 97
[2025-01-28] MEDS: PROTEINASE INHIBITOR IV (13:33)
[2025-01-28] MEDS: ALPHA IV (13:33)
== END 2025-02-02 23:59 | disposition home or self-care (01) ==
LOC: INF 10:35
PROVIDERS: PCP Nurse Practitioner Family; Visit Provider Internal Medicine
DX: E88.01 Alpha-1-antitrypsin deficiency (principal); J43.2 Centrilobular emphysema
CPT/HCPCS: 96365; J0256

== ENCOUNTER 2025-03-04 07:29 | Outpatient (RCR) | payer MEDICARE, SELFPAY ==
[2025-02-04 13:01] VITALS: BP 136/78; PULSE 67; TEMP 36.7; O2SAT 94
[2025-02-04] MEDS: ALPHA IV (13:24)
[2025-02-04] MEDS: PROTEINASE INHIBITOR IV (13:24)
[2025-02-11 13:05] VITALS: BP 135/85; PULSE 70; TEMP 36.7; O2SAT 95
[2025-02-11] MEDS: ALPHA IV (13:28)
[2025-02-11] MEDS: PROTEINASE INHIBITOR IV (13:28)
[2025-02-18 12:55] VITALS: BP 135/78; PULSE 73; TEMP 36.2; O2SAT 95
[2025-02-18] MEDS: PROTEINASE INHIBITOR IV (13:19)
[2025-02-18] MEDS: ALPHA IV (13:19)
[2025-02-25 13:00] VITALS: BP 145/82; PULSE 70; TEMP 37.1; O2SAT 95
[2025-02-25] MEDS: ALPHA IV (13:21)
[2025-02-25] MEDS: PROTEINASE INHIBITOR IV (13:21)
[2025-03-04 13:05] VITALS: BP 133/75; PULSE 64; TEMP 37; O2SAT 95
[2025-03-04] MEDS: PROTEINASE INHIBITOR IV (13:23)
[2025-03-04] MEDS: ALPHA IV (13:23)
== END 2025-03-05 23:59 | disposition home or self-care (01) ==
LOC: INF 07:29
PROVIDERS: PCP Nurse Practitioner Family; Visit Provider Internal Medicine
DX: E88.01 Alpha-1-antitrypsin deficiency (principal); J43.2 Centrilobular emphysema
CPT/HCPCS: 96365; J0256

== ENCOUNTER 2025-04-01 12:55 | Outpatient (RCR) | payer MEDICARE, SELFPAY ==
[2025-03-11 13:02] VITALS: BP 130/73; PULSE 97; TEMP 36.8; O2SAT 95
[2025-03-11] MEDS: ALPHA-1-PROTEINASE INHIBITOR 6,576 MG in EMPTY BAG 0 ML 263.04 MG IV (13:21)
[2025-03-18 13:00] VITALS: BP 146/65; PULSE 68; TEMP 36.4; O2SAT 92
[2025-03-18] MEDS: ALPHA-1-PROTEINASE INHIBITOR 6,576 MG in EMPTY BAG 0 ML 263.04 MG IV (13:41)
[2025-03-25] MEDS: ALPHA-1-PROTEINASE INHIBITOR 6,576 MG in EMPTY BAG 0 ML 263.04 MG IV (13:19)
[2025-03-25 13:20] VITALS: BP 130/72; PULSE 80; TEMP 36.1; O2SAT 95
[2025-04-01 13:00] VITALS: BP 168/80; PULSE 83; TEMP 36; O2SAT 93
[2025-04-01] MEDS: ALPHA-1-PROTEINASE INHIBITOR 6,576 MG in EMPTY BAG 0 ML 240 MG IV (13:28)
== END 2025-04-05 23:59 | disposition home or self-care (01) ==
LOC: INF 12:55
PROVIDERS: PCP Nurse Practitioner Family; Visit Provider Internal Medicine
DX: E88.01 Alpha-1-antitrypsin deficiency (principal); J43.2 Centrilobular emphysema
CPT/HCPCS: 96365; J0256

== ENCOUNTER 2025-04-02 12:18 | Outpatient (OUT) | payer MEDICARE, SELFPAY ==
--- OUTSIDE RECORDS SUMMARY | 2025-01-19 10:50 | XMS_ITS ---
Author Organization [facility] in [place] Address [address] [place] [address] Care Team Providers Care Customer Service Officer Name Role Phone Nereida Reinoso CNP Primary Care Provider U Bill Carrasco Unavailable [phone] REASON FOR VISIT Encounters Encounter Location Date Provider Diagnosis Pulmonary Medicine [place] [address] [place] [address] 01/19/2025 Bill Ruiz Plan Of Treatment No Information Progress Notes * Brock COLEYDOB: (69 yo M)Acc No.[id number]:01/19/2025 Patient: Vish HILLBrock :1955 A ge:69 Y S ex:Male Address:[address] [place] [address] * true * Date: Generated for Printi ng/Faxing/eTransmitting on: 0 04/02/2025 12:22 PM EDT
--- OUTSIDE RECORDS SUMMARY | 2025-02-11 07:03 | XMS_ITS ---
Author Organization [facility] in [place] Address [address] [place] [address] Care Team Providers Care Turn Out Worker Name Role Phone Nereida Reinoso CNP Primary Care Provider U Bill Carrasco [phone] REASON FOR VISIT Prolastin Infusions Encounters Encounter Location Date Provider Diagnosis Pulmonary Medicine [place] [address] [place] [address] 02/11/2025 Bill Ruiz Plan Of Treatment No Information Progress Notes * Brock COLEYDOB: (69 yo M)Acc No.[id number]:02/11/2025 Patient: Vish HILLBrock :1955 A ge:69 Y S ex:Male Address:[address] [place] [address] * true * Date: Generated for Printi ng/Faxing/eTransmitting on: 0 04/02/2025 12:22 PM EDT
--- OUTSIDE RECORDS SUMMARY | 2025-03-23 06:20 | XMS_ITS | Encounter Summary ---
Author Organization [facility] Address [address] [place] [address] Care Team Providers Care Integrated Circuit Layout Designer Name Role Phone Salinas Spencer DO Primary Care Provider Encounter Details Date Type Department Care Team (Latest Contact Info) Description 03/23/2025 6:20 AM EDT Ancillary Procedure [facility] [address] [place] [address] Awareness of heartbeats Social History Tobacco Use Types Packs/Day Years Used Date Smoking Tobacco: Former Cigarettes Smokeless Tobacco: Never Alcohol Use Standard Drinks/Week Comments Never 0 (1 standard drink = 0.6 oz pur e alcohol) [place] Safety & Environment Answer Date Rec orded Fear of Current or Ex-Partner Not on file Emotionally Abused Not on file 09/27/2023 Physically Abused Not on file 09/27/2023 Sexually Abused Not on file 09/27/2023 Physically or Sexually Abused Not on file Sex and Gender Information Value Date Recorded Sex Assigned at Not on file Legal Sex Male 12:36 AM EDT Gender Identity Not on file Sexual Orientation Not on file documented as of this encounter Plan of Treatment Upcoming Encounters Date Type Department Care Team (Late st Contact Info) Description 05/01/2025 Hospital Encounter [facility] [address] [place] [address] Aníbal Rao MD [address] [place] [address] Scheduled Procedures Name Priority Associated Diagnoses Date/Ti me Atrial Fib Ablation w/ PVI Paroxysmal atrial fibrillation (CMS/HCC) documented as of this encounter Procedures Procedure Name Priority Date/Time Associated Diagnosis Comments CARDIAC DEVICE CHECK CHECK - REMOTE Routine 03/26/2025 9:49 AM EDT Awareness of heartbeats documented in this encounter Results * CARDIAC DEVICE CHECK - REMOTE - LOOP RECORDER (ILR) (03/26/2025 9:49 AM EDT) us Aníbal Rao MD CV IMPLANTABLE CARDIAC DEVICE OK OCEDURES Final Result CPACS documented in this encounter Visit Diagnoses Diagnosis Paroxysmal atrial fibrillation (CMS/HCC)- Primary Atrial fibrillation Awareness of heartbeats documented in this encounter Care Teams Integrated Circuit Layout Designer Relationship Specialty Start Date End Date Salinas Spencer DO [address] [place] [address] PCP - General 10/12/23 documented as of this encounter
--- OUTSIDE RECORDS SUMMARY | 2025-03-31 05:33 | XMS_ITS ---
Author Organization The [facility] in [place] Address [address] [place] [address] Care Team Providers Care Machine I Coremaker Name Role Phone Nereida Reinoso CNP Primary Care Provider U Bill Carrasco Unavailable [phone] REASON FOR VISIT Sick Encounters Encounter Location Date Provider Diagnosis Pulmonary Medicine [place] [address] [place] [address] 03/31/2025 Bill Ruiz Plan Of Treatment No Information Progress Notes * Brock COLEYDOB: (70 yo M)Acc No.[id number]:03/31/2025 Patient: Vish HILLBrock :1955 A ge:70 Y S ex:Male Address:[address] [place] [address] * true * Date: Generated for Printi ng/Faxing/eTransmitting on: 0 04/02/2025 12:22 PM EDT
--- OUTSIDE RECORDS SUMMARY | 2025-03-31 06:54 | XMS_ITS | Continuity of Care Document ---
Author Organization [facility] Address [address] [place] [address] Phone Care Team Providers Care Continuous Improvement Analyst Name Role Phone Nereida Reinoso APRN Primary Care Provider Nereida Reinoso APRN Attending Provider [phone] Care Teams Patient Care Team Team Status: Active Member Role Status Dates Wendy Stroud PA-C Specialist Active MATT BirminghamP-Libby Specialist Active Bill LAY DO Specialist Active Aníbal Rao MD Specialist Active Nereida Reinoso APRN UNCLAIMED PROPERTY MANAGER-C Primary Care Provider Active Patient Care Team Team Status: Inactive Member Role Status Dates Nereida Reinoso APRN UNCLAIMED PROPERTY MANAGER-C Primary Care Provider Active Start: March 31, 2025 End: March 31, 2025 DANA Zheng Attending Provider Act [email or web address] Start: March 31, 2025 End: March 31, 2025 Chief Complaint and Reason for Visit Chief Complaint Admit Date wheezing March 31, 2025 10 :22am Reason for Visit Admit Date Centrilobular emphysema March 31 10:22am COPD exacerbation March 31, 2025 10 :22am Allergies, Adverse Reactions, Alerts Allergen Type Severity Reaction Last Updated Verified Status No Known Allergies Allergy Unknown March 31, 2025 8:2 8am Yes Active Social History Smoking Status Status Start Date End Date Date of Observa tion Ex-smoker (finding) October 162023 11:44am Observation Status Observation Response Date of Response Legal Sex Male (finding) Sex Assigned At Male 1955 Problems Active Problems Medical Problem Onset Date Status Comments Medicare annual wellness visit, initial Unknown A ctive Centrilobular emphysema Unknown Active History of lung surgery Unknown Active Zeph yr Valves Alpha 1-antitrypsin PiMS phenotype Unknown Active Dr. Ruiz dx Tachycardia Unknown Active Tremor of both hands Unknown Active COPD exacerbation Unknown Active Medications Medication Status Dose Units Route Directions Qty Days St art Date Stop Date End Date Instructions Adherence Topiramate 25 mg tablet Active 25 MG PO Twice daily 180 90 February 05, 2025 4:54pm Complies with drug therapy Atorvastati n (Lipitor) 40 mg tablet Active 40 MG PO Daily March 31, 2025 12:00a m Complies with drug therapy Doxycycline Monohydrate 100 mg tablet Active 100 MG PO Twice daily 20 March 31, 2025 12:00a m Complies with drug therapy Methylpredn isolone (Medrol (Rodriguez)) 4 mg tablets,dos e pack Active 0 PO per package directions March 31, 2025 12:00a m PO PER PKG DIR Complies with drug therapy Benzonatate 200 mg capsule Active 200 MG PO Three times daily as needed for cough 30 March 31, 2025 12:00a m Complies with drug therapy Apixaban (Eliquis) 5 mg tablet Active 5 MG PO Twice daily October 17, 2023 12:00a m Complies with drug therapy Metoprolol Tartrate 25 mg tablet Discont inued 25 MG PO Twice daily October 17, 2023 12:00a m 2024 10:34 am Fluticasone -Umeclidin- Vilanter (Trelegy Ellipta) 100-62.5-25 mcg blister with device Active 1 INH INHALA TION Daily October 17, 2023 12:00a m Complies with drug therapy Primidone 250 mg tablet Discont inued 250 MG PO Twice daily October 17, 2023 12:00a m Augus 2024 10:33 am Topiramate 25 mg tablet Discont inued 25 MG PO Twice daily October 17, 2023 12:00a m February 05, 2025 4:55p m Primidone 50 mg tablet Discont inued 50 MG PO Daily at bedtime October 17, 2023 12:00a m 2024 10:33 am take in addition to 250mg Albuterol Sulfate 90 mcg/actuati on HFA aerosol inhaler Active 1 PUFF INHALA TION EVERY 4-6 HOURS as needed October 17, 2023 12:00a m Complies with drug therapy Alpha-1 Proteinase Inhib.(Hum) (Prolastin- C) 1,000 mg (+/-)/20 mL solution Active IV every week October 17, 2023 12:00a m Complies with drug therapy Aspirin (Adult Aspirin Regimen) 81 mg tablet,abida yed release (DR/EC) Active 81 MG PO Daily October 17, 2023 12:00a m Complies with drug therapy Multivitami n tablet Active 1 TAB PO Daily October 17, 2023 12:00a m Complies with drug therapy Metoprolol Tartrate 25 mg tablet Active 50 MG PO Twice daily March 31, 2025 10:32a m Complies with drug therapy Vital Signs Vital Reading Result Reference Range Collection Date/Time Height 67 [in_i] March 31 10:28am Weight 117.48 kg March 31 10:28am Body Temperature 97.5 [degF] 97.6-99.0 March 10:28am Heart Rate 80 /min 60-100 March 31 10:28am Oxygen saturation by Pulse oximetry 92 % 95-100 March 31, 2025 10 :28am BP Systolic 138 mm[Hg] 100-140 March 31 10:28am BP Diastolic 76 mm[Hg] 60-100 March 31 10:28am BMI (Body Mass Index) 40.5 kg/m2 March 31, 2025 10:28am Inhaled oxygen flow rate 4 L/min Mar 10:28am Advance Directives Advance Directive Response Recorded Date/ Time Advance Directives No October 14 024 3:50pm Insurance Providers Guarantor Brock Hunt Address [address] [facility] [address] Contact Info. Home Phone: Payer Policy Id Subscriber's Name Subscriber Id Effectiv e Date Expiration Date [facility] [id number] Brock Hunt [id number] Medicare [id number] Brock Hunt [id number] [employer] [facility] [id number] Brock Hunt [id number] Encounters Encounter Location(s) Arrival/Admit Date Discharge/Depart Date Provider(s) Departed Physician/Prov ider Office Visit -[facility] March 31, 2025 10:22am March 31, 2025 10:53am Nereida Reinoso APRN PATIENT FINANCIAL SERVICES COORDINATOR Recent Diagnosis Onset Date Admit Date Centrilobular emphysema Unknown March 072024 10:22am COPD exacerbation Unknown March 31, 10:22am Assessments Diagnosis Onset Date Resolution Status Admit Date Centrilobular emphysema acute A ugust 2024 10:22am COPD exacerbation acute March 31, 2025 10:22am
--- OUTSIDE RECORDS SUMMARY | 2025-04-02 12:22 | XMS_ITS | Encounter Summary ---
Author Organization [facility] Address [address] [place] [address] Phone Care Team Providers Care Manufacturing Management Associate Name Role Phone Bill Ruiz DO Primary Care Provider [phone] Encounter Details Date Type Department Care Team (Late st Contact Info) Description 05/24/2023 Scanned Document [facility] [address] [facility] 6[address] [place] [address] Baron Ribeiro, RN Social History Tobacco Use Types Packs/Day Years Used Date Smoking Tobacco: Never Assessed Sex and Gender Information Value Date Recorded Sex Assigned at Not on file Legal Sex Male 3:07 AM EST Gender Identity Not on file Sexual Orientation Not on file documented as of this encounter Plan of Treatment Not on file documented as of this encounter Visit Diagnoses Not on filedocumented in this encounter Care Teams Manufacturing Management Associate Relationship Specialty Start Date End Date Bill Ruiz DO [address] [place] [address] Internal Medicine Specialties, [address] [address] PCP - General 10/07/20 documented as of this encounter
--- OUTSIDE RECORDS SUMMARY | 2025-04-02 12:22 | XMS_ITS | Encounter Summary ---
Author Organization [facility] Address [address] [place] [address] Care Team Providers Care Clip On Sunglasses Assembler Name Role Phone Salinas Spencer DO Primary Care Provider [phone] Encounter Details Date Type Department Care Team (Late st Contact Info) Description 03/23/2025 Orders Only [facility] [address] [place] [address] Deshaun Holguin MD [address] [place] [address] Social History Tobacco Use Types Packs/Day Years Used Date Smoking Tobacco: Former Cigarettes Smokeless Tobacco: Never Alcohol Use Standard Drinks/Week Comments Never 0 (1 standard drink = 0.6 oz pur e alcohol) ID Safety & Environment Answer Date Rec orded [...] st Contact Info) Description 05/01/2025 Hospital Encounter [facility] Vascular Lab [address] [place] [address] Aníbal Rao MD [address] [place] [address] Scheduled Procedures Name Priority Associated Diagnoses Date/Ti me Atrial Fib Ablation w/ PVI Paroxysmal atrial fibrillation (CMS/HCC) documented as of this encounter Procedures Procedure Name Priority Date/Time Associated Diagnosis Comments CARDIAC DEVICE CHECK - REMOTE - LOOP RECORDER (ILR) Routine 03/23/2025 12:00 AM EDT documented in this encounter Results * Cardiac device check - Remote loop recorder (ILR) (03/23/2025 12:00 AM EDT) Anatomical Region Laterality Modality Other 03/23/2025 Deshaun Holguin MD CV IMPLANTABLE CARDIAC DEVICE PROCEDURES Final Result documented in this encounter Visit Diagnoses Not on filedocumented in this encounter Care Teams Clip On Sunglasses Assembler Relationship Specialty Start Date End Date Salinas Spencer DO [address] [facility] [place] [address] PCP - General 10/12/23 documented as of this encounter
--- OUTSIDE RECORDS SUMMARY | 2025-04-02 12:22 | XMS_ITS | Encounter Summary ---
Author Organization [facility] Address [address] [place] [address] Phone Care Team Providers Care Radio Frequency Technician Name Role Phone Bill Ruiz DO Primary Care Provider [phone] Encounter Details Date Type Department Care Team (Late st Contact Info) Description 12/06/2020 Orders Only [email or web address] LEGACY [address] [place] [address] Conversion, Onbase Social History Tobacco Use Types Packs/Day Years Used Date Smoking Tobacco: Never Assessed Sex and Gender Information Value Date Recorded Sex Assigned at Not on file Legal Sex Male 3:07 AM EST Gender Identity Not on file Sexual Orientation Not on file documented as of this encounter Plan of Treatment Scheduled Orders Name Type Priority Associated Diagnoses Orde r Schedule OUTSIDE LAB SCAN Lab Ordered: 12/06/2020 documented as of this encounter Visit Diagnoses Not on filedocumented in this encounter Care Teams Radio Frequency Technician Relationship Specialty Start Date End Date Bill Ruiz DO [address] [place] [address] Internal Medicine Specialties, [address] [address] PCP - General 10/07/20 documented as of this encounter
--- OUTSIDE RECORDS SUMMARY | 2025-04-02 12:22 | XMS_ITS | Encounter Summary ---
Author Organization [facility] Address [address] [place] [address] Care Team Providers Care Energy Efficiency Engineer Name Role Phone Salinas Spencer DO Primary Care Provider [phone] Encounter Details Date Type Department Care Team (Late st Contact Info) Description 01/20/2025 Orders Only [facility] [address] [facility] [place] [address] Deshaun Holguin MD [address] [place] [address] Social History Tobacco Use Types Packs/Day Years Used Date Smoking Tobacco: Former Cigarettes Smokeless Tobacco: Never Alcohol Use Standard Drinks/Week Comments Never 0 (1 standard drink = 0.6 oz pur e alcohol) [place] Safety & Environment Answer Date Rec orded [...] st Contact Info) Description 05/01/2025 Hospital Encounter [facility] Vascular Lab [address] [place] [address] Aníbal Rao MD [address] [place] [address] Scheduled Procedures Name Priority Associated Diagnoses Date/Ti me Atrial Fib Ablation w/ PVI Paroxysmal atrial fibrillation (CMS/HCC) documented as of this encounter Procedures Procedure Name Priority Date/Time Associated Diagnosis Comments CARDIAC DEVICE CHECK - REMOTE - LOOP RECORDER (ILR) Routine 01/20/2025 12:00 AM EDT documented in this encounter Results * Cardiac device check - Remote loop recorder (ILR) (01/20/2025 12:00 AM EDT) Anatomical Region Laterality Modality Other 01/20/2025 Deshaun Holguin MD CV IMPLANTABLE CARDIAC DEVICE PROCEDURES Final Result documented in this encounter Visit Diagnoses Not on filedocumented in this encounter Care Teams Energy Efficiency Engineer Relationship Specialty Start Date End Date Salinas Spencer DO [address] [facility] [place] [address] PCP - General 10/12/23 documented as of this encounter
--- OUTSIDE RECORDS SUMMARY | 2025-04-02 12:22 | XMS_ITS | Clinical Summary ---
Author Organization [facility] Address [facility] [id number] [address] [place] [address] Care Team Providers Care Hookman Name Role Phone Unavailable Primary Care Provider Unavailabl e Allergies Active Allergy Reactions Criticality Noted Date Comments Cephalexin 10/25/2016 Medications primidone (MYSOLINE) 250 mg tablet Take 250 mg by mouth 2 (two) times a day. 11 02/05/2017 Active VITAMIN E, DL,TOCOPHERYL ACET, (VITAMIN E, DL, ACETATE,) 400 unit capsule Take 400 Units by mouth daily. Active aspirin 81 mg Take 81 mg by mouth daily. Active Active Problems No known active problems Family History Medical History Relation Name Comments Cancer Father Relation Name Status Comments Father Mother Social History Tobacco Use Types Packs/Day Years Used Date Smoking Tobacco: Former Cigarettes 1 32 Smokeless Tobacco: Never Alcohol Use Standard Drinks/Week Comments No 0 (1 standard drink = 0.6 oz pur e alcohol) Childcare Answer Date Recorded Childcare Unknown 01/15/2019 Employment Answer Date Recorded Employment Unknown 01/15/2019 Purpose - Life Answer Date Recorded Purpose and direction in life Unknown Sex and Gender Information Value Date Recorded Sex Assigned at Not on file Legal Sex Male 11:43 AM EDT Gender Identity Not on file Sexual Orientation Not on file Last Filed Vital Signs Vital Sign Reading Time Taken Comments Blood Pressure 130/100 02/20/2017 11:54 AM EDT Pulse 79 02/20/2017 11:04 AM EDT Temperature - - Respiratory Rate 18 02/20/2017 11:04 AM EDT Oxygen Saturation 96% 02/20/2017 11:04 AM EDT Inhaled Oxygen Concentration - - Weight 93.4 kg (206 lb) 02/20/2017 11:04 AM EDT Height 170.2 cm (5' 7 ) 02/20/2017 11:04 AM EDT Body Mass Index 32.26 02/20/2017 11:04 AM EDT Plan of Treatment Health Maintenance Due Date Last Done Comments Depression Screening 1966 Tobacco Screening 1966 Adult BMI Screening 1972 DTaP,Tdap and Td Vaccines (1 - Tdap) 1973 Colon Cancer Screening Annual FOBT 1999 Colonoscopy 1999 Zoster (Shingles) Vaccine (1 of 2) 2004 Fall Risk Screening 2019 Influenza Vaccine 04/06/2025 Medical Devices Not on file Insurance [employer]
--- OUTSIDE RECORDS SUMMARY | 2025-04-02 12:22 | XMS_ITS | Patient Health Record ---
Author Organization [facility] [place] Address [address] [place] [address] Care Team Providers Care Visitor Services Associate Name Role Phone Nereida Alvarez CNP Primary Care Provider U shashank Jeferson Glover Unavailable [phone] Allergies No Known Allergies Results Component Value Reference Range Notes CT chest wo con Reviewed date:05/13/2024 03:26:35 PM Interpretation: Performing Lab: Notes/Report: Source Facility: [place] [address] CT Scan Report Signed Patient: STACEY COLEY MR#: [id number] : 1955 Acct:[id number] Age/Sex: 69 / M ADM Date: 05/13/24 Loc: CT Attending Dr: Jeferson Glover D.O. Ordering Physician: Jeferson Glover D.O. Date of Service: 05/13/24 Procedure(s): CT chest wo con Accession Number(s): [id number] cc: NEREIDA ALVAREZ [place] [id number] Patient Name: STACEY COLEY MRN: [id number] date: 1955 Sex: M Assigned Patient Location: CT Current Patient Location: CT Accession/Order Number: [id number] Exam Date: 05/13/2024 10:36 Report Date: 05/13/2024 13:13 At the request of: JEFERSON GLOVER Procedure: CT chest wo con EXAMINATION: CT chest wo con HISTORY: Abnormal Nonspecific Findings in Lung COMPARISON: CT chest 12/04/2023 TECHNIQUE: Axial, Coronal, and Sagittal images were created without the administration of IV contrast material. Dose reduction techniques were achieved by using automated exposure control and/or adjustment of mA and/or kV according to patient size and/or use of iterative reconstruction technique. FINDINGS: LUNGS: Marked emphysematous changes. Several endobronchial valves within left lower lobe, with majority of these containing mucus. Several mucous plugged bronchi extending into the posterior basilar left lower lobe with persistent atelectasis versus consolidation. PLEURA: No mass, effusion, or pneumothorax. VASCULATURE: No abnormality. ASHIA: No mass or pathologic adenopathy. MEDIASTINUM: No mass or pathologic adenopathy. CARDIAC: No enlargement, pericardial thickening, or pericardial effusion. Coronary Artery calcifications: Coronary calcifications are mild. AORTA: No aneurysm or dissection. CHEST WALL: No mass or axillary adenopathy BONES: No bone lesion or fracture. LIMITED ABDOMEN: No suspicious findings. Limited images of the upper abdomen. OTHER: Negative. CT/CT chest wo con IMPRESSION: 1. Stable passive atelectasis versus consolidation within posterior left lung base secondary to mucous plugging of a few bronchi and several and bronchial valves; grossly stable. 2. Grossly stable moderate to marked emphysematous changes. Electronically authenticated by: JULIEN MIRANDA Date: 05/13/2024 13:13 Dictated By: Julien Miranda M.D. Signed By: 05/13/24 1316 DD/ 1313 TD/TT: Wood Router Hand: [place] [address] CT Scan Report Signed Patient: DAYTON COLEY MR#: [id number] : 1955 Acct:[id number] Age/Sex: 69 / M ADM Date: 05/13/24 Loc: CT Attending Dr: Jeferson Glover D.O. Ordering Physician: Jeferson Glover D.O. Date of Service: 05/13/24 Procedure(s): CT chest wo con Accession Number(s): [id number] cc: NEREIDA ALVAREZ [place] [address] Patient Name: STACEY COLEY MRN: [id number] date: 1955 Sex: M Assigned Patient Location: CT Current Patient Location: CT Accession/Order Numb er: [id number] Exam Date: 10:36 Report Date: 05/13/2024 13:13 At the request of: JEFERSON GLOVER Procedure: CT chest wo con EXAMINATION: CT chest wo con HISTORY: Abnormal No nspecific Findings in Lung COMPARISON: CT chest 12/04/2023 TECHNIQUE: Axial, Co jun, and Sagittal images were created without the administration of IV contrast material. Dose reduction techniques were achieved by using automated e xposure control and/or adjustment of mA and/or kV according to patient size and/ or use of iterative reconstruction technique. FINDINGS: LUNGS: Marked emphys ematous changes. Several endobronchial valves within left lower lobe, with lor ority of these containing mucus. Several mucous plugged bronchi extending in to the posterior basilar left lower lobe with persistent atelectasis versus consolidation. PLEURA: No mass, eff usion, or pneumothorax. VASCULATURE: No abnormality. ASHIA: No mass or pat hologic adenopathy. MEDIASTINUM: No mass or pathologic adenopathy. CARDIAC: No enlargem ent, pericardial thickening, or pericardial effusion. Coronary Artery calc ifications: Coronary calcifications are mild. AORTA: No aneurysm o r dissection. CHEST WALL: No mass or axillary adenopathy BONES: No bone lesio n or fracture. LIMITED ABDOMEN: No suspicious findings. Limited images of the upper abdomen. OTHER: Negative. C T/CT chest wo con IMPRESSION: 1. Stable passive at electasis versus consolidation within posterior left lung base secondary to mu cous plugging of a few bronchi and several and bronchial valves; grossly stable. 2. Grossly stable mo derate to marked emphysematous changes. Electronically authe nticated by: JULIEN MIRANDA Date: 05/13/2024 13:13 Dictated By: Julien Miranda M.D. Signed By: 05/13/24 1316 DD/ 1313 TD/TT: Wood Router Hand: CT Chest w/o contrast Reviewed date:05/13/2024 01:21:11 PM Interpretation: Performing Lab: Notes/Report: Reason For Referral No Information Medications Medication SIG (Take, Route, Frequency, Duration) Notes Start Date End Date Status Metoprolol Tartrate 50 MG Oral for 90 Days Active Multi Complete - as directed Orally Active Aspirin 81 MG 1 tablet Orally Once a day for 30 day(s) 05/23/2023 Active Albuterol Sulfate HFA 108 (90 Base) MCG/ACT 2 puffs as needed for SOB Inhalation Q4H for 90 days Activ e Prolastin-C 1000 MG/20ML as directed Intravenous Active Topiramate 25 MG TAKE 1 TABLET BY JARETT TH TWICE DAILY (IN THE MORNING and BEFORE bedtime) Oral for 30 Days Active Trelegy Ellipta 100-62.5-25 MCG/ACT 1 puff Inhalation QD for 90 days Rinse after use Active Vitamin E 1000 UNIT as directed Orally Active Immunizations Vaccine Route Administration Date Status Comme nts Pneumococcal (Prevnar 13) Unknown 04/07/2020 Administer ed Pneumococcal (Prevnar 13) Unknown 09/29/2021 Administer ed SARS-COV-2 (COVID 19 Pfizer 30mcg/0.3mL) Unknown 07/27/2021 Administered Social History Tobacco Use: Social History Observation Description Date Details (start date - stop date) Former Smoker NA - NA Tobacco Control (Standard) Question Answer Notes Tobacco use: Former smoker How long has it been since y ou last smoked? Greater than 10 years Additional Findings: Tobacco non-user Ex -very heavy cigarette smoker (40+/day) Problems Problem Type SNOMED Code ICD Code Onset Dates Problem Status W/U Status Risk Notes Problem 662402266 Obesity, unspecified (E66.9) Active confirmed Problem Centrilobular emphysema (48248392) Centrilobular emphysema (J43.2) Active confirmed Problem Chronic respiratory failure (18164429) Chronic respiratory failure with hypoxia (J96.11) Active confirmed Problem Long-term current use of inhaled steroid (158981414) assisted (current) use of inhaled steroids (Z79.51) Active confirmed Problem Ex-tobacco user (finding) (291745794) History of tobacco abuse (Z87.891) Active confirmed 2ppd x40 years, quit 2012 Problem Jksby-1-najzyklk sin deficiency (14882729) 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 Vital Signs Heart Rate 79 /min 12/08/2024 Temperature 96.7 degrees Fahrenheit 12/08/2024 Respiratory Rate 18 /min 12/08/2024 Blood pressure diastolic 90 mm Hg 12/08/2024 Oximetry 95 % 12/08/2024 Height 67 in 12/08/2024 Blood pressure systolic 161 mm Hg 12/08/2024 Weight 248.6 lbs 12/08/2024 BMI 38.93 kg/m2 12/08/2024 Encounters Encounter Location Date Provider Diagnosis [facility] [place] [address] [place] [address] 12/01/2024 [facility] [place] [address] [place] [address] 01/19/2025 [facility] [place] [address] [place] [address] 02/11/2025 [facility] [place] [address] [place] [address] 03/31/2025 [facility] [place] [address] [place] [address] 05/27/2024 [facility] Other nonspecific abnormal finding of lung field R91.8 ; Centrilobular emphysema J43.2 ; Chronic respiratory failure with hypoxia J96.11 ; AAT (ocwev-2-xmkfwcivsyr) deficiency E88.01 ; History of tobacco abuse Z87.891 ; Encounter for screening for malignant neoplasm of respiratory organs Z12.2 ; Obesity, unspecified E66.9 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.51 [facility] [place] [address] [place] [address] 12/08/2024 [facility] Centrilobular emphys christina J43.2 ; Chronic respiratory failure with hypoxia J96.11 ; AAT (iqgxh-4-kivjkswatyu) deficiency E88.01 ; History of tobacco abuse Z87.891 ; Obesity, unspecified E66.9 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 F/U chest CT 05/13/2024 shows no worsening. I feel that the changes represent natural course of EBV. As the findings have remained stable to slightly improved, I recommended that this did not need to be followed by chest CT strictly for this diagnosis - we can return back to annual LDCT monitoring. 05/27/2024 Centrilobular emphysema (ICD-10 - J43.2) Remains on Trelegy with voiced benefit. Discussed that 2 new medications have been approved for COPD since his last visit: Ohtuvayre and Dupixent. He states that he is doing well on his current regimen and does not require any additional therapy. He did write down the name of Ohtuvayre to independently research it in the event he would require it in the future. Continue with Prolastin as well. 12/08/2024 Centrilobular emphysema (ICD-10 - J43.2) He continues to do well on Trelegy with rare albuterol use. No exacerbations over the past 6 months. He is happy with his breathing and does not feel he needs any additional treatment (e.g. Ohtuvayre or Dupixent). Continue current therapy, including Prolastin. F/U 6 months or sooner PRN. 12/08/2024 Chronic respiratory failure with hypoxia (ICD-10 - J96.11) Qkki-tf-gaxu encounter performed with the patient to document continued need for supplemental oxygen (O2).-Flow & directions: 5L/min O2 ATC (previously was 4L/min)-Patient voices adherence to recommended usage: Yes-Symptom control on O2: Minimal SOB when using O2 - worse dyspnea if he takes it off.-Counseled patient not begin, restart, or continue smoking, around the O2 due to risk of fire which could result in damage to the O2 tanks & lines, smoke inhalation and flame damage to the airway, significant pugh, potential , property damage, and potential harm & to bystanders. Additionally, counseled it is not brasher to begin, restart, or continue smoking given the underlying pulmonary disease that led to the point of requiring O2.-Recommendations : O2 was bumped from 4-5 L/min - he seems to be doing okay. Would not increase O2 further at this point. 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 Continues on Prolastin and is having a positive response with use. 05/27/2024 Chronic respiratory failure with hypoxia (ICD-10 - J96.11) Cbtk-wv-uufk encounter performed with the patient to document continued need for supplemental oxygen (O2).-Flow & directions: 4L/min O2 ATC..-Patient voices adherence to recommended usage: Yes-Symptom control on O2: Minimal SOB when using O2 - worse dyspnea if he takes it off.-Counseled patient not begin, restart, or continue smoking, around the O2 due to risk of fire which could result in damage to the O2 tanks & lines, smoke inhalation and flame damage to the airway, significant pugh, potential , property damage, and potential harm & to bystanders. Additionally, counseled it is not brasher to begin, restart, or continue smoking given the underlying pulmonary disease that led to the point of requiring O2.-Recommendations : He is doing well on the current flow. Continue O2 as he is. 05/27/2024 AAT (qlioc-9-izwektpo sin) deficiency (ICD-10 - E88.01) Genotype: SZ SZ genotype. Remains on Prolastin; his breathing has remained fairly stable while on it - I believe Prolastin has helped to slow the decline in his pulmonary function. He denies any infusion related reactions. Continue weekly Prolastin infusions. 12/08/2024 History of tobacco abuse (ICD-10 - Z87.891) 2ppd x40 years, quit 2013 2ppd x 40 years, quit 2012. LDCT due 05/2025. 12/08/2024 Obesity, unspecified (ICD-10 - E66.9) Patient's weight is inducing a restrictive pulmonary physiology. Weight loss indicated: Decrease calories, increase activity. 05/27/2024 History of tobacco abuse (ICD-10 - Z87.891) 2ppd x40 years, quit 2013 2ppd x 40 years, quit 2012. Resuming annual LDCT as chest CT 05/13/2024 as remained unchanged to slightly improved over the past year. LDCT will be due 05/2025. 05/27/2024 Encounter for screening for malignant neoplasm of respiratory organs (ICD-10 - Z12.2) Low-dose CT (LDCT) was recommended for lung cancer screening. The patient meets criteria including age 50-77, a smoking history of at least 20 pack-years, is currently smoking or has ceased smoking within the past 15 years, and has no signs or symptoms of lung cancer. Shared decision making performed with the patient. After LDCT has been completed, will review report and/or imaging and provide appropriate recommendations for the patient, including additional follow up if needed. Patient was counseled on smoking cessation/continued tobacco abstinence. LDCT is due 05/2025. 12/08/2024 assisted (current) use of inhaled steroids (ICD-10 - Z79.51) Patient was counseled to rinse & gargle with water after inhaled corticosteroid use. 05/27/2024 Obesity, unspecified (ICD-10 - E66.9) Patient's weight is inducing a restrictive pulmonary physiology. Weight loss indicated: Decrease calories, increase activity. 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 12/02/2024 Other 12/08/[address] 12/04/2023 compared to 05/22/2023 shows minimal left lower lung infiltrate improvement. F/U chest CT 05/13/2024 shows no worsening. I feel that the changes represent natural course of EBV. As the findings have remained stable to slightly improved, I recommended that this did not need to be followed by chest CT strictly for this diagnosis - we can return back to annual LDCT monitoring. Chest CT 12/04/2023 compared to 05/22/2023 shows minimal left lower lung infiltrate improvement. F/U chest CT 05/13/2024 shows no worsening. I feel that the changes represent natural course of EBV. As the findings have remained stable to slightly improved, I recommended that this did not need to be followed by chest CT strictly for this diagnosis - we can return back to annual LDCT monitoring. Plan Of Treatment No Information Insurance Providers Payer Name Payer Address Payer Phone Subscriber Number Group Number Insured Name Patient Relationship to Insured Coverage Start Date Coverage End Date MEDICARE [place] [address] [phone] [id number] Stacey Coley Self - patient is the insured 9 [employer] [address] [address] [place] [id number] PLAN N Stacey Coley Self - patient is the insured Medical (General) History Medical History History ICD Code Centrilobular emphysema J43.2 Chronic respiratory failure with hypoxia J96.11 AAT (uzhiy-8-kiyldsanohy) deficiency E88 .01 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
--- OUTSIDE RECORDS SUMMARY | 2025-04-02 12:22 | XMS_ITS | Encounter Summary ---
Author Organization [facility] Address [address] [place] [address] Care Team Providers Care Rn Surgery Name Role Phone [place] Spencer DO Primary Care Provider [phone] Encounter Details Date Type Department Care Team (Late st Contact Info) Description 11/19/2024 Orders Only [facility] Heart [facility] [address] [place] [address] Deshaun Holguin MD [address] [place] [address] Social History Tobacco Use Types [...] st Contact Info) Description 05/01/2025 Hospital Encounter [facility] V[facility] Lab [address] [place] [address] Aníbal Rao MD [address] [place] [address] Scheduled Procedures Name Priority Associated Diagnoses Date/Ti me Atrial Fib Ablation w/ PVI Paroxysmal atrial fibrillation (CMS/HCC) documented as of this encounter Procedures Procedure Name Priority Date/Time Associated Diagnosis Comments CARDIAC DEVICE CHECK - REMOTE - LOOP RECORDER (ILR) Routine 11/19/2024 12:00 AM EDT documented in this encounter Results * Cardiac device check - Remote loop recorder (ILR) (11/19/2024 12:00 AM EDT) Anatomical Region Laterality Modality Other 11/19/2024 Deshaun Holguin MD CV IMPLANTABLE CARDIAC DEVICE PROCEDURES Final Result documented in this encounter Visit Diagnoses Not on filedocumented in this encounter Care Teams Rn Surgery Relationship Specialty Start Date End Date [place] Spencer DO [address] [facility] [place] [address] PCP - General 10/12/23 documented as of this encounter
--- OUTSIDE RECORDS SUMMARY | 2025-04-02 12:22 | XMS_ITS | Clinical Summary ---
Author Organization [facility] Address [address] [facility] [place] [address] Care Team Providers Care Cleaning Validation Consultant Name Role Phone Nereida Reinoso CABINET MOUNTER Unavailable [phone] Allergies Active Allergy Reactions Criticality Noted Date Comments Cephalexin 12/20/2023 Medications multivitamin with minerals (Cerovite) 18-400 mg-mcg tablet tablet Take 1 tablet by mouth Daily Active albuterol HFA 90 mcg/act inhaler Inhale 2 puffs every 4 (four) hours if needed for wheezing Active vitamin E (E-400) 180 MG (400 UNIT) capsule Take 180 mg by mouth Daily Active aspirin 81 MG EC tablet Take 81 mg by mouth Daily Active Trelegy Ellipta 100-62.5-25 MCG/ACT aerosol powder Active metoprolol tartrate (Lopressor) 50 MG tablet Take 50 mg by mouth in the morning and 50 mg before bedtime. Active apixaban (Eliquis) 2.5 MG tablet Take 2.5 mg by mouth in the morning and 2.5 mg before bedtime. Active topiramate 50 MG tabletIndicatio ns:Tremor Take 50 mg by mouth in the morning and 50 mg before bedtime. 180 tablet 3 12/16/2024 Active primidone (Mysoline) 50 MG tabletIndicatio ns:Tremor 2 po qam, 1 po afternoon, 2 po evening for 2 weeks, then 1 po tid. 112 tablet 12/18/2024 Active Active Problems Problem Noted Date Diagnosed Date Tremor 12/20/2023 Essential tremor 12/20/2023 Overview (12/20/2023): Patient with history of essential tremor. This is treated with Primidone and remains stable. 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 Labwork 08/2020 revealed normal LFTs and therapeutic primidone level. We will avoid propranolol due to his lung condition as well as gabapentin due to potential of respiratory depression. He notes that his symptoms persist, agrees, and he would like to trial additional medication. Paroxysmal atrial fibrillation 11/20/2023 Immunizations Immunization Administration Dates Next Due Pneumococcal Conjugate PCV 13 09/29/2021 Social History Tobacco Use Types Packs/Day Years Used Date Smoking Tobacco: Every Day Cigarettes Tobacco Cessation:Ready to Q uit: Not Asked; Counseling Given: Not Answered Alcohol Use Standard Drinks/Week Comments Never 0 (1 standard drink = 0.6 oz pur e alcohol) Sex and Gender Information Value Date Recorded Sex Assigned at Not on file Legal Sex Male 2:03 PM EDT Gender Identity Not on file Sexual Orientation Not on file Last Filed Vital Signs Vital Sign Reading Time Taken Comments Blood Pressure 118/78 12/16/2024 11:17 AM EDT Pulse 54 12/20/2023 10:55 AM EDT Temperature - - Respiratory Rate 16 12/20/2023 10:55 AM EDT Oxygen Saturation 95% 12/20/2023 10:55 AM EDT Inhaled Oxygen Concentration - - Weight 113 kg (249 lb) 12/16/2024 11:17 AM EDT Height 170.2 cm (5' 7 ) 12/16/2024 11:17 AM EDT Body Mass Index 39 12/16/2024 11:17 AM EDT Plan of Treatment Health Maintenance Due Date Last Done Comments CT Colonography 1955 Colonoscopy 1955 Colorectal Cancer Screening 1955 FIT-DNA 1955 FIT 1955 FOBT 1955 Sigmoidoscopy 1955 Pneumococcal Vaccine: 65+ Ye ars (2 of 2 - PPSV23) 09/29/2022 09/29/2021, 04/07/2020 Influenza Vaccine (#1) 2025 Insurance MEDICARE [employer] Care Teams Cleaning Validation Consultant Relationship Specialty Start Date End Date Nereida Reinoso NP [address] [place] [id number] Referring Physician Family Medicine 12/20/23
--- OUTSIDE RECORDS SUMMARY | 2025-04-02 12:22 | XMS_ITS | Clinical Summary ---
Author Organization [facility] Address [address] [place] [address] Care Team Providers Care Ocean Biologist Name Role Phone Salinas Spencer DO Primary Care Provider [phone] Allergies Active Allergy Reactions Criticality Noted Date Comments Cephalexin Unknown 10/25/2016 Medications fluticasone-umecli din-vilanter (Trelegy Ellipta) 100-62.5-25 mcg blister with device Inhalation for 30 Days Active primidone (Mysoline) 250 mg tablet every 12 (twelve) hours. Active primidone (Mysoline) 50 mg tablet 1 (one) time each day at the same time. 05/23/20 23 Active alpha1-proteinase inhibitor (Prolastin-C) infusion Infuse 60 mg/kg into a venous catheter 1 (one) time per week. On Sun at [place] Active albuterol 90 mcg/actuation inhaler INHALE 2 PUFFS BY MOUTH EVERY 4 HOURS NEEDED SHORTNESS OF BREATH Inhalation for 50 Days Active vitamin E, dl,tocopheryl acet, (vitamin E, dl, acetate,) 180 mg (400 unit) capsule Take 400 Units by mouth in the morning. Active topiramate (Topamax) 25 mg tablet Take 50 mg by mouth in the morning and at bedtime. 09/27/19 24 Active apixaban (Eliquis) 5 mg tabletIndications: Paroxysmal atrial flutter (CMS/HCC) Take 1 tablet (5 mg) by mouth in the morning and at bedtime. 60 tablet 11 10/12/19 24 Active Additional Information Patient not taking.Reported on 01/06/2025 atorvastatin (Lipitor) 40 mg tabletIndications: Hyperlipidemia, unspecified hyperlipidemia type Take 1 tablet (40 mg) by mouth in the morning. 90 tablet 3 05/08/20 24 025 Active Additional Information Patient not taking.Reported on 11/12/2024 aspirin 81 mg EC tablet Take 81 mg by mouth in the morning. Active metoprolol tartrate (Lopressor) 50 mg tabletIndications: Palpitations Take 1 tablet (50 mg) by mouth two times daily. 180 each 3 01/07/20 25 026 Active apixaban (Eliquis) 5 mg tabletIndications: Paroxysmal atrial fibrillation (CMS/HCC) Take 1 tablet (5 mg) by mouth two times daily. 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 This is treated with Primidone and remains stable. 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 Labwork 08/2020 revealed normal LFTs and therapeutic primidone level. We will avoid propranolol due to his lung condition as well as gabapentin due to potential of respiratory depression. He notes that his symptoms persist, agrees, and he would like to trial additional medication. Tremor 12/20/2023 Paroxysmal atrial fibrillation 11/20/2023 Assessment & Plan (05/08/2024 1:50 PM EDT): Review of ILR report shows no A-fib burden Return to clinic in 2 to [address] 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 Assessment & Plan (10/12/2023 6:27 AM EST): Event monitor Paroxysmal atrial flutter 10/12/2023 Assessment & Plan (10/12/2023 11:51 AM EST): [id number]- HTN and age No contra indications for [...] Dr Rao- EP evaluation and further management Essential hypertension 10/12/2023 Assessment & Plan (05/08/2024 1:50 PM EDT): Hypertension is well-controlled 130/78 today continue metoprolol Assessment & Plan (10/12/2023 11:47 AM EST): Hypertension is uncontrolled in office 146/84 and was also elevated in ED visit- 155/69 Encounters Date Type Department Care Team Description 03/23/2025 6:20 AM EDT Ancillary Procedure [facility] [address] [place] [phone] Awareness of heartbeats 03/23/2025 Orders Only [facility] [address] [place] [phone] Deshaun Holguin MD 02/22/2025 Orders Only [facility] [address] [facility] [place] [address] Aníbal Rao MD 02/20/2025 10:05 AM EDT Ancillary Procedure [facility] [address] [place] [address] Awareness of heartbeats 01/21/2025 6:10 PM EDT Ancillary Procedure [facility] [address] [place] [address] Awareness of heartbeats 01/20/2025 Orders Only [facility] [address] [place] [address] Deshaun Holguin MD 01/06/2025 11:15 AM EDT Office Visit [facility] [address] [facility] [place] [address] Aníbal Rao MD Palpitations; Paroxysmal atrial fibrillation (CMS/HCC) 01/06/2025 Orders Only [facility] [address] [place] [address] Massiel Carreon MA Paroxysmal atrial fibrillation (CMS/HCC) from Last 3 Months Family History Medical History Relation Name Comments Leukemia Father COPD Mother COPD Sister Relation Name Status Comments Brother Alive Father Mother Sister Social History Tobacco Use Types Packs/Day Years Used Date Smoking Tobacco: Former Cigarettes Smokeless Tobacco: Never Tobacco Cessation:Counseling Given: Not Answered Alcohol Use Standard Drinks/Week Comments Never 0 (1 standard drink = 0.6 oz pur e alcohol) [place] Safety & Environment Answer Date Rec orded [...] Sign Reading Time Taken Comments Blood Pressure 150/79 01/06/2025 11:12 AM EDT Pulse 74 01/06/2025 11:12 AM EDT Temperature - - Respiratory Rate 14 03/28/2024 1:00 PM EDT Oxygen Saturation 94% 01/06/2025 11:12 AM EDT Inhaled Oxygen Concentration - - Weight 112 kg (248 lb) 01/06/2025 11:12 AM EDT Height 170.2 cm (5' 7 ) 01/06/2025 11:12 AM EDT Body Mass Index 38.84 01/06/2025 11:12 AM EDT Plan of Treatment Upcoming Encounters Date Type Department Care Team (Late st Contact Info) Description 05/01/2025 Hospital Encounter [facility] V[facility] [address] [place] [address] Aníbal Rao MD [address] [place] [address] Scheduled Procedures Name Priority Associated Diagnoses Date/Ti me Atrial Fib Ablation w/ PVI Paroxysmal atrial fibrillation (CMS/HCC) Health Maintenance Due Date Last Done Comments CT Colonography 1955 Colonoscopy 1955 Colorectal Cancer Screening 1955 FIT-DNA 1955 FIT 1955 FOBT 1955 Medicare Annual Wellness (AWV) 1955 Sigmoidoscopy 1954 Depression Screening 1966 Adult Tetanus 1976 Zoster Vaccines (1 of 2) 2004 Fall Risk Screening 2019 Pneumococcal Vaccine: 50+ Years (2 of 2 - PPSV23, PCV20, or PCV21) 11/24/2021 09/29/2021, 04/07/2020 COVID-19 Vaccine (4 - 2023-2 5 season) 2024 07/27/2021, 11/16/2020, 10/25/2020 Influenza Vaccine (#1) 2025 HIB Vaccines Aged Out No longer eligi ble based on patient's age to complete this topic HPV Vaccines Aged Out No longer eligi ble based on patient's age to complete this topic IPV Vaccines Aged Out No longer eligi ble based on patient's age to complete this topic Meningococcal B Vaccine Aged Out No l onger eligible based on patient's age to complete this topic Meningococcal Vaccine Aged Out No te stan eligible based on patient's age to complete this topic Rotavirus Vaccines Aged Out No longer eligible based on patient's age to complete this topic Medical Devices Implanted Type Area Family Counselor Device Identifier Shelf Expiration Date Model / Serial / Lot Monitor,Candia c,Lux,Dxii+[facility] - [id number] - [id number] Implanted:Qty: 1 on 12/10/2023 by Aníbal Rao MD at [facility] Implantable Loop Recorder [employer] 04/18/2025 [id number] / [id number] / Procedures Procedure Name Priority Date/Time Associated Diagnosis Comments CARDIAC DEVICE CHECK CHECK - REMOTE Routine 03/26/2025 9:49 AM EDT Awareness of heartbeats CARDIAC DEVICE CHECK - REMOTE - LOOP RECORDER (ILR) Routine 03/23/2025 12:00 AM EDT CARDIAC DEVICE CHECK CHECK - REMOTE Routine 02/26/2025 2:20 PM EDT Awareness of heartbeats CARDIAC DEVICE CHECK - REMOTE - LOOP RECORDER (ILR) Routine 02/22/2025 12:00 AM EDT CARDIAC DEVICE CHECK CHECK - REMOTE Routine 02/17/2025 3:57 PM EDT Awareness of heartbeats CARDIAC DEVICE CHECK - REMOTE - LOOP RECORDER (ILR) Routine 01/20/2025 12:00 AM EDT from Last 3 Months Results * CARDIAC DEVICE CHECK - REMOTE - LOOP RECORDER (ILR) (03/26/2025 9:49 AM EDT) Only the most recent of3 resultswithin the time period is included. us Aníbal Rao MD CV IMPLANTABLE CARDIAC DEVICE NC OCEDURES Final Result CPACS * Cardiac device check - Remote loop recorder (ILR) (03/23/2025 12:00 AM EDT) Only the most recent of3 resultswithin the time period is included. Anatomical Region Laterality Modality Other 03/23/2025 Deshaun Holguin MD CV IMPLANTABLE CARDIAC DEVICE PROCEDURES Final Result from Last 3 Months Insurance MEDICARE [employer] Care Teams Ocean Biologist Relationship Specialty Start Date End Date Salinas Spencer DO [address] [place] [id number] PCP - General 10/12/23
--- OUTSIDE RECORDS SUMMARY | 2025-04-02 12:22 | XMS_ITS | Clinical Summary ---
Author Organization [facility] Address [address] [place] [address] Phone Care Team Providers Care Biological Inspector Name Role Phone Bill Ruiz DO Primary Care Provider Social History Tobacco Use Types Packs/Day Years Used Date Smoking Tobacco: Never Assessed Sex and Gender Information Value Date Recorded Sex Assigned at Not on file Legal Sex Male 3:07 AM EST Gender Identity Not on file Sexual Orientation Not on file Last Filed Vital Signs Vital Sign Reading Time Taken Comments Blood Pressure 153/81 05/04/2021 1:45 PM EDT Pulse 105 05/04/2021 1:45 PM EDT Temperature 36.5 C (97.7 F) 05/04/2021 1:45 PM EDT Respiratory Rate 16 05/04/2021 1:45 PM EDT Oxygen Saturation 95% 05/04/2021 1:45 PM EDT Inhaled Oxygen Concentration - - Weight 114 kg (250 lb 4 oz) 05/04/2021 1:45 PM E DT Height 170.1 cm (5' 6.97 ) 05/04/2021 1:45 PM ED T Body Mass Index 39.23 05/04/2021 1:45 PM EDT Plan of Treatment Not on file Care Teams Biological Inspector Relationship Specialty Start Date End Date Bill Ruiz DO [address] [place] [address] Internal Medicine Specialties, [address] [address] PCP - General 10/07/20
--- OUTSIDE RECORDS SUMMARY | 2025-04-02 12:23 | XMS_ITS | Encounter Summary ---
Author Organization [facility] Address [address] [place] [address] Phone Care Team Providers Care Printed Circuit Board Panels Trimmer Name Role Phone Bill Ruiz DO Primary Care Provider [phone] Encounter Details Date Type Department Care Team (Late st Contact Info) Description 02/22/2021 Orders Only [facility] [address] [place] [address] Conversion, Onbase Social History Tobacco Use Types [...] r Schedule OUTSIDE LAB SCAN Lab Ordered: 02/22/2021 documented as of this encounter Visit Diagnoses Not on filedocumented in this encounter Care Teams Printed Circuit Board Panels Trimmer Relationship Specialty Start Date End Date Bill Ruiz DO [address] [place] [address] Internal Medicine Specialties, [address] [address] PCP - General 10/07/20 documented as of this encounter
--- OUTSIDE RECORDS SUMMARY | 2025-04-02 12:23 | XMS_ITS | Encounter Summary ---
Author Organization [facility] Address [address] [place] [address] Phone Care Team Providers Care Pediatric Medical Assistant Name Role Phone Bill Ruiz DO Primary Care Provider [phone] Encounter Details Date Type Department Care Team (Late st Contact Info) Description 02/23/2021 Orders Only [facility] [address] [place] [address] Conversion, Onbase Social History Tobacco Use Types [...] r Schedule OUTSIDE LAB SCAN Lab Ordered: 02/23/2021 documented as of this encounter Visit Diagnoses Not on filedocumented in this encounter Care Teams Pediatric Medical Assistant Relationship Specialty Start Date End Date Bill Ruiz DO [address] [place] [address] Internal Medicine Specialties, [address] [address] PCP - General 10/07/20 documented as of this encounter
--- NOTE | 2025-04-02 12:28 | XR_ITS ---
The [address] [address] Patient Name: STACEY COLEY MRN: [id number] date: 1955 Sex: M Assigned Patient Location: RAD Current Patient Location: Accession/Order Number: [id number] Exam Date: 04/02/2025 12:32 Report Date: 04/03/2025 00:39 At the request of: LESLY ALVAREZ Procedure: XR chest 2V XR chest 2V 04/02/2025 12:37 PM SIGNS AND SYMPTOMS: ^Acute exacerbation of COPD , productive cough PROTOCOL: Frontal and lateral radiographs of the chest COMPARISON: 10/03/2023 FINDINGS: The trachea is midline. There is a cardiac monitoring device over the left anterior chest wall. Atherosclerotic changes are noted in the thoracic aorta. The heart and mediastinal structures are within normal limits. Interstitial prominence is noted throughout the lung parenchyma similar to the prior exam. Airspace opacities noted at the left lung base which may represent atelectasis or scarring. The bony thorax is intact. XR/XR chest 2V IMPRESSION: Airspace opacities noted at the left lung base which may represent atelectasis or scarring. Chronic interstitial changes are noted. Impression dictated by: Cruzito Schultz M.D. 04/03/2025 12:39 AM Dictation Location: [facility] Electronically authenticated by: [id number] Y Date: 04/03/2025 00:39
--- OUTSIDE RECORDS SUMMARY | 2025-04-02 12:33 | XMS_ITS | CCD ---
Author Organization [facility] CliniSymo Care Team Providers Care Manager Office Name Role Phone Samsa, Jeferson P Unavailable [...] AMARA, DR RUDOLPH Primary Care Unavailable LOWE, WENDY Admitting Unavailable LOWE, WENDY Consulting Unavailable LOWE, WENDY Attending Unavailable SAMSA ., JEFERSON Attending Unavailable HOUSE, DR RUDOLPH Primary Care Unavailable SAMSA ., JEEFRSON Admitting Unavailable DR AISSATOU WORKMAN Consulting Unavailable SAMSA ., JEFERSON Consulting Unavailable SAMSA ., JEFERSON Attending Unavailable SAMSA ., JEFERSON Consulting Unavailable DR VIRAJ MALONEY Primary Care Unavailable SAMSA ., JEFERSON Admitting Unavailable SAMSA ., JEFERSON Attending Unavailable SAMSA ., JEFERSON Consulting Unavailable AMARA, DR RUDOLPH Primary Care Unavailable SAMSA ., JEFERSON Admitting Unavailable SAMSA ., JEFERSON Attending Unavailable SAMSA ., JEFERSON Consulting Unavailable AMARA, DR RUDOLPH Primary Care Unavailable SAMSA ., JEFERSON Admitting Unavailable Andrzejacheollie CROW, Nereida Orozco Unavailable WENDY STROUD Attending Unavailable LOWE, WENDY Attending Unavailable LOWE, WENDY Attending Unavailable LOWE, WENDY Attending Unavailable SANDIE, ANÍBAL Referring Unavailable LIN, NOREEN Referring Unavailable SANDIE, ANÍBAL Referring Unavailable SANDIE, ANÍBAL Referring Unavailable SANDIE, ANÍBAL Referring Unavailable SANDIE, ANÍBAL Referring Unavailable SANDIE, ANÍBAL Referring Unavailable SANDIE, ANÍBAL Referring Unavailable ELTAHAWY, EHAB Admitting Unavailable ELTAHAWY, EHAB Attending Unavailable LIN, NOREEN Referring Unavailable SANDIE, ANÍBAL Referring Unavailable SANDIE, ANÍBAL Referring Unavailable ELTAHAWY, EHAB Attending Unavailable ELTAHAWY, EHAB Referring Unavailable SANDIE, ANÍBAL Attending Unavailable LIO, KAILEE Attending Unavailable SANDIE, ANÍBAL Referring Unavailable Nereida Reinoso APRN Primary Care Provider Nereida Reinoso APRN Attending Provider [phone] Allergies Allergy Classification Reported Allergen(s) Allergy Type Date of Onset Reaction(s) Facility (6 sources) Cephalexin; Translations: [CEPHALEXIN] Drug Allergy 10-25-2016 [facility] Medications Current Medications Medication Drug Class(es) Dates Sig (Normalized) Sig (Original) [id number] 200 actuat albuterol 0.09 mg/actuat metered dose inhaler (15 sources) beta2-Adrenergic Agonist Start: 10-17-2023 take 1 puff(s) by inhalation every four to six hours as needed Albuterol Sulfate 90 mcg/actuation HFA aerosol inhaler Active 1 PUFF INHALATION EVERY 4-6 HOURS as needed October 17, 2023 12:00am Complies with drug therapy Start: 12-15-2020 take 1-2 puff(s) by mouth every four to six hours as needed Albuterol Sulfate HFA 108 (90 Base) MCG/ACT Inhalation Aerosol Solution INHALE 1 TO 2 PUFFS BY MOUTH EVERY 4 TO 6 HOURS NEEDED Quantity: 1 Refills: 1 Ordered: 15-Dec-2020 DO Start : 15-Dec-2020 Active take 2 puff(s) by in halation every four hours for wheezing albuterol HFA 90 mcg/act inhaler Inhale 2 puffs every 4 (four) hours if needed for wheezing Active take 2 puff(s) by in halation every four hours as needed albuterol 90 mcg/inh inhalation aerosol with adapter ; 2 puff(s) inhaled every 4 hours, As Needed Quantity: 0 Refills: 0 Ordered: 28-Feb-2021 Osiel Marie Generic Substitution Allowed alpha 1-proteinase inhibitor, human 1 mg injection (10 sources) Human alpha-1 Proteinase Inhibitor Start: 10-17-2023 Alpha-1 Proteinase Inhib.(Hum) (Prolastin-C) 1,000 mg (+/-)/20 mL solution Active IV every week October 17, 2023 12:00am Complies with drug therapy Start: 12-15-2020 Prolastin-C 10 00 MG/20ML Intravenous Solution weekly Quantity: 0 Refills: 0 Ordered: 15-Dec-2020 DO Start : 15-Dec-2020 Active amoxicillin 875 mg / clavulanate 125 mg oral tablet (1 source) Penicillin-class Antibacterial Start: 03-14-2021 End: 03-24-2021 take 1 tablet by mouth every twelve hours amoxicillin-clavulanate 875 mg-125 mg oral tablet ; 1 tab(s) orally every 12 hours -.Meds to Beds Quantity: 22 Refills: 0 Ordered: 14-Mar-2021 Max Champion Start: 14-Mar-2021 End: 24-Mar-2021 Generic Substitution Allowed apixaban 5 mg oral tablet (6 sources) Factor Xa Inhibitor Start: 10-17-2023 take 1 tablet by mouth twice daily Apixaban (Eliquis) 5 mg tablet Active 5 MG PO Twice daily October 17, 2023 12:00am Complies with drug therapy take 1 tablet by mouth in the mo rning apixaban (Eliquis) 2.5 MG tablet Take 2.5 mg by mouth in the morning and 2.5 mg before bedtime. Active aspirin 81 mg delayed release oral tablet (15 sources) Platelet Aggregation Inhibitor, Nonsteroidal Anti-inflammatory Drug Start: 12-15-2020 take 1 tablet by mouth once daily Aspirin (Adult Aspirin Regimen) 81 mg tablet,delayed release (DR/EC) Active 81 MG PO Daily October 17, 2023 12:00am Complies with drug therapy take 1 tablet by mouth once vernon y Aspirin Low Dose 81 mg oral tablet, chewable ; 1 orally once a day Quantity: 0 Refills: 0 Ordered: 28-Feb-2021 Osiel Marie Generic Substitution Allowed atorvastatin 40 mg oral tablet (1 source) HMG-CoA Reductase Inhibitor Start: 03-31-2025 take 1 tablet by mouth once daily Atorvastatin (Lipitor) 40 mg tablet Active 40 MG PO Daily March 31, 2025 12:00am Complies with drug therapy benzonatate 200 mg oral capsule (1 source) Non-narcotic Antitussive Start: 03-31-2025 take 1 capsule by mouth three times daily as needed for cough Benzonatate 200 mg capsule Active 200 MG PO Three times daily as needed for cough 04 06March 31, 2025 12:00am Complies with drug therapy doxycycline monohydrate 100 mg oral tablet (1 source) Tetracycline-class Drug Start: 03-31-2025 take 1 tablet by mouth twice daily Doxycycline Monohydrate 100 mg tablet Active 100 MG PO Twice daily 20 March 31, 2025 12:00am Complies with drug therapy Fluticasone-Umeclid in-Vilanter (15 sources) Anticholinergic, Corticosteroid, beta2-Adrenergic Agonist Start: 10-17-2023 Fluticasone-Umecli din-Vilanter (Trelegy Ellipta) 100-62.5-25 mcg blister with device Active 1 INH INHALATION Daily October 17, 2023 12:00am Complies with drug therapy Start: 12-15-2020 Trelegy Ellipt a 100-62.5-25 MCG/INH Inhalation Aerosol Powder Breath Activated 1 inhalation daily. Rinse after. Quantity: 3 Refills: 3 Ordered: 15-Dec-2020 Salinas Ruiz MD Start : 15-Dec-2020 Active Trelegy Ellipta 100-62.5-25 MCG/ACT aerosol powder Active take 1 puff(s) by in halation once daily Trelegy Ellipta 100 mcg-62.5 mcg-25 mcg/inh inhalation powder ; 1 puff(s) inhaled once a day Quantity: 0 Refills: 0 Ordered: 28-Feb-2021 Osiel Marie Generic Substitution Allowed methylPREDNISolone 4 mg oral tablet (1 source) Corticosteroid Start: 03-31-2025 take 1 tablet by mouth once Methylprednisolone (Medrol (Rodriguez)) 4 mg tablets,dose pack Active 0 PO per package directions March 31, 2025 12:00am PO PER PKG DIR Complies with drug therapy metoprolol tartrate 25 mg oral tablet (7 sources) beta-Adrenergic Raegan Start: 03-31-2025 take 2 tablets by mouth twice daily Metoprolol Tartrate 25 mg tablet Active 50 MG PO Twice daily March 31, 2025 10:32am Complies with drug therapy Start: 10-17-2023 End: 03-31-2025 take 1 tablet by mouth twice daily Metoprolol Tartrate 25 mg tablet Discontinued 25 MG PO Twice daily October 17, 2023 12:00am March 31, 2025 10:34am take 1 tablet by osbaldo th in the morning metoprolol tartrate (Lopressor) 50 MG tablet Take 50 mg by mouth in the morning and 50 mg before bedtime. Active Multivitamin preparation (1 source) take 1 tablet by mouth once daily Multiple Vitamins oral tablet ; 1 tab(s) orally once a day Quantity: 0 Refills: 0 Ordered: 28-Feb-2021 Osiel Marie Generic Substitution Allowed Multivitamin tablet (1 source) Start: 10-17-2023 take 1 tablet by mouth once daily Multivitamin tablet Active 1 TAB PO Daily October 17, 2023 12:00am Complies with drug therapy multivitamin with minerals (Cerovite) 18-400 mg-mcg tablet tablet (5 sources) take 1 tablet by mouth once daily multivitamin with minerals (Cerovite) 18-400 mg-mcg tablet tablet Take 1 tablet by mouth Daily Active primidone 50 mg oral tablet (20 sources) Anti-epileptic Agent Start: 01-10-2024 primidone (Mysoline) 50 MG tablet Indications: Tremor 2 po qam, 1 po afternoon, 2 po evening for 2 weeks, then 1 po tid. 112 tablet 01/10/2024 Active Start: 10-17-2023 End: 03-31-2025 take 1 tablet by mouth twice daily Primidone 250 mg tablet Discontinued 250 MG PO Twice daily October 17, 2023 12:00am March 31, 2025 10:33am Start: 10-17-2023 End: 03-31-2025 take 5 tablets by mouth once daily at bedtime Primidone 50 mg tablet Discontinued 50 MG PO Daily at bedtime October 17, 2023 12:00am March 31, 2025 10:33am take in addition to 250mg Start: 12-15-2020 take 1 tablet by osbaldo th twice daily Primidone 250 MG Oral Tablet TAKE 1 TABLET TWICE DAILY. Quantity: 0 Refills: 0 Ordered: 15-Dec-2020 DO Start : 15-Dec-2020 Active Start: 12-15-2020 take 1 tablet by osbaldo th once daily at lunch Primidone 50 MG Oral Tablet once a day at lunch Quantity: 0 Refills: 0 Ordered: 15-Dec-2020 DO Start : 15-Dec-2020 Active take 1 tablet by osbaldo every twelve hours primidone 250 mg oral tablet ; 1 orally every 12 hours Quantity: 0 Refills: 0 Ordered: 28-Feb-2021 Osiel Marie Generic Substitution Allowed topiramate 25 mg oral tablet (11 sources) Start: 03-11-2024 End: 03-16-2025 take 1 tablet by mouth in the morning topiramate 50 MG tablet Indications: Tremor Take 50 mg by mouth in the morning and 50 mg before bedtime. 180 tablet 3 12/16/2024 03/16/2025 Active Start: 10-17-2023 End: 02-05-2025 take 1 tablet by mouth twice daily Topiramate 25 mg tablet Active 25 MG PO Twice daily 180 90 February 05, 2025 4:54pm Complies with drug therapy Completed/Discontinued Medications Medication Drug Class(es) Dates Sig (Normalized) Sig (Original) levoFLOXacin 500 mg oral tablet (1 source) [...] Ordered: 15-Dec-2020 DO Start : 15-Dec-2020 Active vitamin e d-alpha 400 unt oral capsule (14 sources) Start: 12-15-2020 Vitamin E 400 UNIT Oral Capsule TAKE DIRECTED. Quantity: 0 Refills: 0 Ordered: 15-Dec-2020 DO Start : 15-Dec-2020 Active take 1 capsule by mouth once cailin ly vitamin E (E-400) 180 MG (400 UNIT) capsule Take 180 mg by mouth Daily Active take 1 capsule by mouth once cailin ly vitamin E 400 intl units oral capsule ; 1 cap(s) orally once a day Quantity: 0 Refills: 0 Ordered: 28-Feb-2021 Idika, Anatku Generic Substitution Allowed Problems Active Problems Problem Classification Problem Date Documented Date Episodic/Chronic Cardiac dysrhythmias (7 sources) Paroxysmal atrial fibrillation; Translations: [Paroxysmal atrial fibrillation] Onset: 11-20-2023 03-11-2024 Chronic Cardiac dysrhythmias (3 sources) Palpitations; Translations: [Tachycardia] Onset: 04-08-2024 Episodic Chronic obstructive pulmonary disease and bronchiectasis (14 sources) Pulmonary emphysema; Translations: [Other emphysema] Onset: 05-06-2022 06-05-2024 Chronic Coronary atherosclerosis and other heart disease (2 sources) Atherosclerotic heart disease of [place] coronary artery without angina pectoris; Translations: [Atherosclerotic heart disease of [place] coronary artery without angina pectoris] Onset: 05-08-2024 Chronic Disorders of lipid metabolism (2 sources) Hyperlipidemia, unspecified; Translations: [Hyperlipidemia, unspecified] Onset: 03-28-2024 Chronic Other hereditary and degenerative nervous system conditions (4 sources) Essential tremor; Translations: [ESSENTIAL TREMOR] Onset: 10-02-2022 Chronic Other hereditary and degenerative nervous system conditions (5 sources) Essential tremor; Translations: [Essential tremor] Onset: 12-20-2023 12-20-2023 Chronic Other lower respiratory disease (8 sources) Dyspnea; Translations: [Shortness of breath] Episodic Other nervous system disorders (9 sources) Tremor; Translations: [Tremor, unspecified] Onset: 12-20-2023 07-04-2024 Episodic Other nervous system disorders (1 source) Finding of hand region; Translations: [Tremor, unspecified] 10-17-2023 Episodic Other nutritional; endocrine; and metabolic disorders (9 sources) Obkqi-7-mludlhydrax deficiency; Translations: [Hmdwf-4-nffihgsczxf deficiency] Onset: 12-06-2022 Chronic Other nutritional; endocrine; and metabolic disorders (4 sources) Hgjbc-6-auxiwgntyvf deficiency; Translations: [KUQVF-9-OHBYXPOPVNU DEFICIENCY] Onset: 05-06-2022 Chronic Pneumonia (except that caused by tuberculosis or sexually transmitted disease) (7 sources) Pneumonia; Translations: [Pneumonia, organism unspecified] 03-13-2021 Episodic Pneumonia (except that caused by tuberculosis or sexually transmitted disease) (2 sources) Pneumonia (except that caused by tuberculosis or sexually transmitted disease) 03-11-2021 Comment on above: PNEUMONIA AND CHRONI C RESPIRATORY FAILURE Residual codes; unclassified (1 source) Vxpoc-0-bmpgbpakfiy phenotype PiMS; Translations: [Genetic carrier of other disease] 10-17-2023 Episodic Comment on above: Dr. Joseph cruz Respiratory failure; insufficiency; arrest (adult) (8 sources) Chronic hypoxemic respiratory failure; Translations: [Chronic respiratory failure] Chronic Unclassified (1 source) DIAGNOSTIC EBUS 03-14-2021 Comment on above: DIAGNOSTIC EBUS Unclassified (1 source) Supraventricular tachycardia, unspecified; Translations: [Supraventricular tachycardia, unspecified] Onset: 11-12-2024 Past or Other Problems Problem Classification Problem Date Documented Date Episodic/Chronic Other screening for suspected conditions (not mental disorders or infectious disease) (2 sources) Abnormal result of other cardiovascular function study; Translations: [Abnormal result of other cardiovascular function study] Onset: 03-18-2024 Episodic Screening and history of mental health and substance abuse codes (4 sources) Personal history of nicotine dependence; Translations: [PERSONAL HISTORY OF NICOTINE DEPEND] Onset: 05-03-2022 Episodic Unclassified (1 source) Supraventricular tachycardia, unspecified; Translations: [Supraventricular tachycardia, unspecified] Onset: 11-12-2024 Results Test Name Value Interpretation Reference Range Facility Orders Onlyon 03-23-2025 Orders Only [id number] Christina Coley 1955 M Date Provider Department Center 03/23/2025 GARTH MANE HVC CARD [facility] Family History Problem Relation Age of Onset COPD Mother Leukemia Father COPD Sister Family Status - Relation Status Age at Mother Father Sister Brother Alive Normal [facility] Orders Onlyon 02-22-2025 Orders Only [id number] Christina Coley 1955 [facility] Provider Department Center 02/22/2025 ANÍBAL ZAMORANO C CARD [facility] Family History Problem Relation Age of Onset COPD Mother Leukemia Father COPD Sister Family Status - Relation Status Age at Mother Father Sister Brother Alive Normal [facility] Office Visiton 01-06-2025 Follow-up visit [id number] Christina Coley 1955 M Date Provider Department Center 01/06/2025 ANÍBAL ZAMORANO CARD [facility] Family History Problem Relation Age of Onset COPD Mother Leukemia Father COPD Sister Family Status - Relation Status Age at Mother Father Sister Brother Alive Level of Service:85500 CT OFFICE/OUTPATIENT ESTABLISHED LOW MDM 20 MIN Normal [facility] Office Visiton 11-12-2024 Follow-up visit [id number] Christina Coley 1955 [facility] Provider Department Center 11/12/2024 TALIA LOCO CARD [facility] Family History Problem Relation Age of Onset COPD Mother Leukemia Father COPD Sister Family Status - Relation Status Age at Mother Father Sister Brother Alive Level of Service:73799 CT OFFICE/OUTPATIENT ESTABLISHED LOW MDM 20 MIN Normal [facility] 37on 05-08-2024 37 Start Aspirin 81 mg daily Have blood drawn to check cholesterol level Continue all other meds Normal [facility] Office Visiton 05-08-2024 Follow-up visit [id number] Christina Coley 1955 M Date Provider Department Center 05/08/2024 KAILEE EPSTEIN CARD [facility] Family History Problem Relation Age of Onset No Known Problems Mother No Known Problems Father Family Status - Relation Status Age at Mother Father Level of Service:89708 CT OFFICE/OUTPATIENT ESTABLISHED LOW MDM 20 MIN Normal [facility] ANESon 03-28-2024 ANES ----- ----- Attestation signed by Talia Perdomo MD at 03/28/2024 11:20 AM Talia Perdomo MD, MPH, [facility], [facility], [facility] Interventional Cardiology Pager Email: [email or web address] u ----- Patient: Brock Coley Procedure Information Date/Time: 03/28/24 1130 Procedure: Coronary angiography (Left) Location: [facility] URINALYSIS TECHNICIAN 3 / [facility] (Cath) Providers: Talia Perdomo [...] discussed with attending. Additional Equipment Requests Normal [facility] HPon 03-28-2024 HP ----- ----- Attestation signed by Talia Perdomo MD at 03/28/2024 11:20 AM Talia Perdomo MD, MPH, [facility], [facility], [facility] Interventional Cardiology Pager Email: [email or web address] u ----- H&P reviewed. The patient was [...] to proceed. Signed, Esther Espinoza MD PGY-4 Glaze Sprayer Pager: [phone] Normal [facility] Chacorta 03-28-2024 KOJO RN educated pt on d/ c instructions. RN encouraged pt to voice any questions or concerns. Pt verbalizes no questions or concerns at this time. Normal [facility] PRIMIDONE / MYSOLINEon 10-03 Phenobarbital, Serum 5 ug/mL Critically low 15-40 [facility] Comment on above: Result Comment: Dete ction Limit = 3 Performed By: #### P KRISTIAN #### [facility] [address] [address] [address] Lara Horne Primidone, Serum 11.1 ug/mL Normal 5.0-12.0 [facility] Comment on above: Result Comment: Dete ction Limit = 0.3 <0.3 indicates None Detected Performed By: #### P RIMIDO #### [facility] [address] [address] [address] Lara Horne LIVER PROFILEon 10-02-2022 Albumin [Mass/Vol] 4.2 g/dL Normal 3.4-5.0 [facility] Comment on above: Performed By: #### L IVER #### [facility] [address] [address] [address] Lara Horne Albumin/Globulin [Mass ratio] 1.2 {ratio} Normal [facility] Comment on above: Performed By: #### L IVER #### [facility] [address] [address] [address] Lara Horne ALP [Catalytic activity/Vol] 131 U/L Critically high 46-116 [facility] Comment on above: Performed By: #### L IVER #### [facility] [address] [place] [address] Dr. Lara Horne ALT [Catalytic activity/Vol] 55 U/L Normal 16-63 [facility] Comment on above: Performed By: #### L IVER #### [facility] [address] [place] [address] Dr. Lara Horne AST [Catalytic activity/Vol] 25 U/L Normal 15-37 [facility] Comment on above: Performed By: #### L IVER #### [facility] [address] [place] [address] Dr. Lara Horne BILI, CONJUGATED 0.1 mg/dL Normal 0.0-0.2 [facility] Comment on above: Performed By: #### L IVER #### [facility] [address] [address] [address] Lara Horne Bilirubin [Mass/Vol] 0.3 mg/dL Normal 0.2-1.0 [facility] Comment on above: Performed By: #### L IVER #### [facility] [address] [address] [address] Lara Horne Globulin (S) [Mass/Vol] 3.5 g/dL Normal [facility] Comment on above: Performed By: #### L IVER #### [facility] [address] [place], [place] [address] Dr. Lara Horne Protein [Mass/Vol] 7.7 g/dL Normal 6.4-8.2 [facility] Comment on above: Performed By: #### L IVER #### [facility] [address] [place], [place] 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 COMPARISON: CT dated 03/11/2021 ACCESSION NUMBER(S): [id number] ORDERING CLINICIAN: SALINAS RUIZ TECHNIQUE: Helical data [...] reactive. Electronically signed by: CAMERON SALMERON MD [facility] Daily Progress Note-Medicine on 03-15-2021 Daily Progress Note-Medicine Service: Medicine Subjective Data: BROCK COLEY is a 66 year old Male who is Hospital Day # 5. Overnight Events: Patient had an uneventful night. Additional Information: feels well Objective Data: Objective Information: T PRBPSpO2 [id number]/[id number]% Date/Time03/15 4:5003/15 4:5003/15 4:5003/15 4:5003/15 4:50 Range(36.6C - 37C ) (92 - 98 ) (18 - 18 ) (122 - 151 )/ (74 - 79 ) (93% - 95% ) As of 15-Mar-2021 08:19:00, patient is on 4 L/min of oxygen via nasal cannula. Highest temp of 37 C was recorded at 03/14 22:14 Pain reported at 8 23:48: 0 = None Physical Exam by [...] Updated: 15-Mar-2021 15:49 by Daryl Kearns) Normal [facility] BASIC METABOLIC PANELon 08-0 Anion gap [Moles/Vol] 16 mmol/L Normal 10 - 20 [facility] Comment on above: Performed By: #### B MP ####[id number] [place] [address] Calcium [Mass/Vol] 9.0 mg/dL Normal 8.6 - 10.6 [facility] Comment on above: Performed By: #### B MP ####[id number] [place] [address] Chloride [Moles/Vol] 99 mmol/L Normal 98 - 107 [facility] Comment on above: Performed By: #### B MP ####[id number] [place] [address] Creatinine [Mass/Vol] 0.83 mg/dL Normal 0.50 - 1.30 [facility] Comment on above: Performed By: #### B MP ####[id number] [place] [address] GFR- AM. >60 Normal >60 [facility] Comment on above: Result Comment: CALC ULATIONS OF ESTIMATED GFR ARE PERFORMED USING THE MDRD STUDY EQUATION FOR THE IDMS-TRACEABLE CREATININE METHODS. CLIN CHEM 2007;53:766-72 Performed By: #### B MP ####[id number] [place] [address] GFR-NON AM. >60 Normal >60 [facility] Comment on above: Performed By: #### B MP ####[id number] [place] [address] Glucose [Mass/Vol] 151 mg/dL High 74 - 99 [facility] Comment on above: Performed By: #### B MP ####[id number] [place] [address] HCO3 (Bld) [Moles/Vol] 25 mmol/L Normal 21 - 32 [facility] Comment on above: Performed By: #### B MP ####[id number] [place] [address] Potassium [Moles/Vol] 4.6 mmol/L Normal 3.5 - 5.3 [facility] Comment on above: Performed By: #### B MP ####[id number] [place] [address] Sodium [Moles/Vol] 135 mmol/L Low 136 - 145 [facility] Comment on above: Performed By: #### B MP ####[id number] [place] [address] Urea nitrogen [Mass/Vol] 13 mg/dL Normal 6 - 23 [facility] Comment on above: Performed By: #### B MP ####[id number] [place] [address] C-REACTIVE PROTEINon 021 C-REACTIVE PROTEIN 10.63 mg/dL Abnormal [facility] Comment on above: Result Comment: REF VALUE < 1.00 Performed By: #### C BCDF #### [facility] [id number] [place] [address] CBC AND DIFFERENTIALon 03-14 % AUTOMATED IMMATURE GRAN 0.5 % Normal 0.0 - 0.9 [facility] Comment on above: Result Comment: Suellen ture Granulocyte Count (IG) includes promyelocytes, myelocytes and metamyelocytes but does not include bands. Percent differential counts (%) should be interpreted in the context of the absolute cell counts (cells/L). Performed By: #### C BCDF #### [facility] [address] [place] [address] Basophils (Bld) [#/Vol] 0.05 10*3/uL Normal 0.00 - 0.10 [facility] Comment on above: Performed By: #### C BCDF #### [facility] [address] [place] [address] Basophils/100 WBC (Bld) 0.5 % Normal 0.0 - 2.0 [facility] Comment on above: Performed By: #### C BCDF #### [facility] [address] [place] [address] Eosinophils (Bld) [#/Vol] 0.19 10*3/uL Normal 0.00 - 0.70 [facility] Comment on above: Performed By: #### C BCDF #### [facility] [address] [place] [address] Eosinophils/100 WBC (Bld) 1.9 % Normal 0.0 - 6.0 [facility] Comment on above: Performed By: #### C BCDF #### [facility] [address] [place] [address] Erythrocyte distribution width (RBC) [Ratio] 12.0 % Normal 11.5 - 14.5 [facility] Comment on above: Performed By: #### C BCDF #### [facility] [address] [place] [address] Hematocrit (Bld) [Volume fraction] 36.0 % Low 41.0 - 52.0 [facility] Comment on above: Performed By: #### C BCDF #### [facility] [address] [place] [address] Hemoglobin (Bld) [Mass/Vol] 12.3 g/dL Low 13.5 - 17.5 [facility] Comment on above: Performed By: #### C BCDF #### [facility] [address] [place] [address] Lymphocytes (Bld) [#/Vol] 2.29 10*3/uL Normal 1.20 - 4.80 [facility] Comment on above: Performed By: #### C BCDF #### [facility] [address] [place] [address] Lymphocytes/100 WBC (Bld) 22.7 % Normal 13.0 - 44.0 [facility] Comment on above: Performed By: #### C BCDF #### [facility] [address] [place] [address] MCHC (RBC) [Mass/Vol] 34.2 g/dL Normal 32.0 - 36.0 [facility] Comment on above: Performed By: #### C BCDF #### [facility] [address] [place] [address] MCV (RBC) [Entitic vol] 95 fL Normal 80 - 100 [facility] Comment on above: Performed By: #### C BCDF #### [facility] [address] [place] [address] Monocytes (Bld) [#/Vol] 0.74 10*3/uL Normal 0.10 - 1.00 [facility] Comment on above: Performed By: #### C BCDF #### [facility] [address] [place] [address] Monocytes/100 WBC (Bld) 7.3 % Normal 2.0 - 10.0 [facility] Comment on above: Performed By: #### C BCDF #### [facility] [address] [place] [address] Neutrophils (Bld) [#/Vol] 6.79 10*3/uL Normal 1.20 - 7.70 [facility] Comment on above: Performed By: #### C BCDF #### [facility] [address] [place] [address] Neutrophils/100 WBC (Bld) 67.1 % Normal 40.0 - 80.0 [facility] Comment on above: Performed By: #### C BCDF #### [facility] [address] [place] [address] NUCLEATED RBC 0.0 /100 WBC Normal 0.0-0.0 [facility] Comment on above: Performed By: #### C BCDF #### [facility] [address] [place] [address] Platelets (Bld) [#/Vol] 405 10*3/uL Normal 150 - 450 [facility] Comment on above: Performed By: #### C BCDF #### [facility] [address] [place] [address] RBC 3.77 x10E12/L Low 4.50 - 5.90 [facility] Comment on above: Performed By: #### C BCDF #### [facility] [address] [place] [address] WBC (Bld) [#/Vol] 10.1 10*3/uL Normal 4.4 - 11.3 [facility] Comment on above: Performed By: #### C BCDF #### [facility] [address] [place] [address] [facility] Daily Progress Note-Pulmonology Service: Pulmonology Subjective [...] standpoint Objective Data: Objective Information: T PRBPSpO2 [id number]/7996% Date/Time03/14 5: 5: 5: 5: 5:23 Range(35.7C [...] days. - OP Follow up with [facility] Biostatistician in [facility] in 4 weeks to document resolution [...] MD Pulmonary- Critical Care Fellow PGY-6 Pager [phone] [place] Attestation: Note Completion: I am a: Resident/Fellow Attending AttestationI saw and evaluated the patient. I personally obtained the (more content not included)... Normal [facility] Order Reconciliationon 03-14 Order Reconciliation Page [...] 1 inhalation Every 12 HoursNotes [facility]-Mar-[facility] 16:09 Fluticasone 250 microgram -Salmeterol [...] Multiple Aleksandra (more content not included)... Normal [facility] TH CHEST 1 VIEWon 03-14-2021 TH CHEST 1 VIEW Patient Name: BROCK COLEY STUDY: CHEST 1 VIEW; 03/14/2021 6:18 am INDICATION: COPD and PNA. COMPARISON: None. ACCESSION NUMBER(S): [id number] ORDERING CLINICIAN: MAX CHAMPION FINDINGS: CARDIOMEDIASTINAL SILHOUETTE: [...] Electronically signed by: Ollie HAGER MD Normal [facility] VANCOMYCIN,TROUGHon 03-14-20 21 VANCOMYCIN,TROUGH Canceled Normal [facility] Comment on above: Order Comment: TEST VANCOMYCIN,TROUGH WAS CANCELLED, 03/13/2021 23:56 DUPLICATE ORDER. Performed By: #### C BCDF #### [facility] [address] [place] [address] CBC AND DIFFERENTIALon 03-13 % AUTOMATED IMMATURE GRAN 0.4 % Normal 0.0 - 0.9 [facility] Comment on above: Result Comment: Suellen ture Granulocyte Count (IG) includes promyelocytes, myelocytes and metamyelocytes but does not include bands. Percent differential counts (%) should be interpreted in the context of the absolute cell counts (cells/L). Performed By: #### C BCDF #### [facility] [address] [place] [address] Basophils (Bld) [#/Vol] 0.05 10*3/uL Normal 0.00 - 0.10 [facility] Comment on above: Performed By: #### C BCDF #### [facility] [address] [place] [address] Basophils/100 WBC (Bld) 0.4 % Normal 0.0 - 2.0 [facility] Comment on above: Performed By: #### C BCDF #### [facility] [address] [place] [address] Eosinophils (Bld) [#/Vol] 0.22 10*3/uL Normal 0.00 - 0.70 [facility] Comment on above: Performed By: #### C BCDF #### [facility] [address] [place] [address] Eosinophils/100 WBC (Bld) 2.0 % Normal 0.0 - 6.0 [facility] Comment on above: Performed By: #### C BCDF #### [facility] [address] [place] [address] Erythrocyte distribution width (RBC) [Ratio] 12.0 % Normal 11.5 - 14.5 [facility] Comment on above: Performed By: #### C BCDF #### [place] [address] [place] [address] Hematocrit (Bld) [Volume fraction] 39.5 % Low 41.0 - 52.0 [facility] Comment on above: Performed By: #### C BCDF #### [facility] [address] [place] [address] Hemoglobin (Bld) [Mass/Vol] 13.4 g/dL Low 13.5 - 17.5 [facility] Comment on above: Performed By: #### C BCDF #### [facility] [address] [place] [address] Lymphocytes (Bld) [#/Vol] 3.15 10*3/uL Normal 1.20 - 4.80 [facility] Comment on above: Performed By: #### C BCDF #### [facility] [address] [place] [address] Lymphocytes/100 WBC (Bld) 28.0 % Normal 13.0 - 44.0 [facility] Comment on above: Performed By: #### C BCDF #### [facility] [address] [place] [address] MCHC (RBC) [Mass/Vol] 33.9 g/dL Normal 32.0 - 36.0 [facility] Comment on above: Performed By: #### C BCDF #### [facility] [address] [place] [address] MCV (RBC) [Entitic vol] 98 fL Normal 80 - 100 [facility] Comment on above: Performed By: #### C BCDF #### [facility] [address] [place] [address] Monocytes (Bld) [#/Vol] 1.08 10*3/uL High 0.10 - 1.00 [facility] Comment on above: Performed By: #### C BCDF #### [facility] [address] [place] [address] Monocytes/100 WBC (Bld) 9.6 % Normal 2.0 - 10.0 [facility] Comment on above: Performed By: #### C BCDF #### [facility] [address] [place] [address] Neutrophils (Bld) [#/Vol] 6.72 10*3/uL Normal 1.20 - 7.70 [facility] Comment on above: Performed By: #### C BCDF #### [facility] [address] [place] [address] Neutrophils/100 WBC (Bld) 59.6 % Normal 40.0 - 80.0 [facility] Comment on above: Performed By: #### C BCDF #### [facility] [address] [place] [address] NUCLEATED RBC 0.0 /100 WBC Normal 0.0-0.0 [facility] Comment on above: Performed By: #### C BCDF #### [facility] [address] [place] [address] Platelets (Bld) [#/Vol] 424 10*3/uL Normal 150 - 450 [facility] Comment on above: Performed By: #### C BCDF #### [facility] [address] [place] [address] RBC 4.02 x10E12/L Low 4.50 - 5.90 [facility] Comment on above: Performed By: #### C BCDF #### [facility] [address] [place] [address] WBC (Bld) [#/Vol] 11.3 10*3/uL Normal 4.4 - 11.3 [facility] Comment on above: Performed By: #### C BCDF #### [facility] [address] [place] [address] COMPREHENSIVE PANELon 2020 Albumin [Mass/Vol] 3.9 g/dL Normal 3.4 - 5.0 [facility] Comment on above: Performed By: #### C BCDF #### [facility] [address] [place] [address] ALP [Catalytic activity/Vol] 99 U/L Normal 33 - 136 [facility] Comment on above: Performed By: #### C BCDF #### [facility] [address] [place] [address] ALT [Catalytic activity/Vol] 101 U/L High 10 - 52 [facility] Comment on above: Result Comment: Oksana ents treated with Sulfasalazine may generate falsely decreased results for ALT. Performed By: #### C BCDF #### [facility] [address] [place] [address] Anion gap [Moles/Vol] 17 mmol/L Normal 10 - 20 [facility] Comment on above: Performed By: #### C BCDF #### [facility] [address] [place] [address] AST [Catalytic activity/Vol] 45 U/L High 9 - 39 [facility] Comment on above: Performed By: #### C BCDF #### [facility] [address] [place] [address] Bilirubin [Mass/Vol] 0.7 mg/dL Normal 0.0 - 1.2 [facility] Comment on above: Performed By: #### C BCDF #### [facility] [address] [place] [address] Calcium [Mass/Vol] 9.1 mg/dL Normal 8.6 - 10.6 [facility] Comment on above: Performed By: #### C BCDF #### [facility] [address] [place] [address] Chloride [Moles/Vol] 101 mmol/L Normal 98 - 107 [facility] Comment on above: Performed By: #### C BCDF #### [facility] [address] [place] [address] Creatinine [Mass/Vol] 0.96 mg/dL Normal 0.50 - 1.30 [facility] Comment on above: Performed By: #### C BCDF #### [facility] [address] [place] [address] GFR- AM. >60 Normal >60 [facility] Comment on above: Result Comment: CALC ULATIONS OF ESTIMATED GFR ARE PERFORMED USING THE MDRD STUDY EQUATION FOR THE IDMS-TRACEABLE CREATININE METHODS. CLIN CHEM 2007;53:766-72 Performed By: #### C BCDF #### [facility] [address] [place] [address] GFR-NON AM. >60 Normal >60 [facility] Comment on above: Performed By: #### C BCDF #### [facility] [address] [place] [address] Glucose [Mass/Vol] 108 mg/dL High 74 - 99 [facility] Comment on above: Performed By: #### C BCDF #### [facility] [address] [place] [address] HCO3 (Bld) [Moles/Vol] 22 mmol/L Normal 21 - 32 [facility] Comment on above: Performed By: #### C BCDF #### [facility] [address] [place] [address] Potassium [Moles/Vol] 4.7 mmol/L Normal 3.5 - 5.3 [facility] Comment on above: Performed By: #### C BCDF #### [facility] [address] [place] [address] Protein [Mass/Vol] 6.6 g/dL Normal 6.4 - 8.2 [facility] Comment on above: Performed By: #### C BCDF #### [facility] [address] [place] [address] Sodium [Moles/Vol] 135 mmol/L Low 136 - 145 [facility] Comment on above: Performed By: #### C BCDF #### [facility] [address] [place] [address] Urea nitrogen [Mass/Vol] 16 mg/dL Normal 6 - 23 [facility] Comment on above: Performed By: #### C [facility] #### [facility] [address] [place] [address] Daily Progress Note-Medicine on 03-13-2021 Daily Progress Note-Medicine Service: Medicine Subjective Data: BROCK COLEY is a 66 year old Male who is Hospital Day # 3. 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 Below plan not updated #Nmmnp-5-aqrryobhros deficiency #Emphysema with severe copd s/p LLL [...] the note. I personally evaluated the patient [id number] Comments/ Additional Findings Seen on rounds, reported [...] Updated: 13-Mar-2021 23:14 by Miriam Marks) Normal [facility] LEGIONELLA AG, URINEon 03-13 LEGIONELLA AG, URINE Negative Normal Negative [facility] Comment on above: Result Comment: NEGA TIVE FOR LEGIONELLA PNEUMOPHILIA SEROGROUP 1 ANTIGEN IN URINE, SUGGESTING NO CURRENT OR PAST INFECTION. Performed By: #### C BCDF #### [facility] [address] [place] [address] S.PNEUMONIAE AG,Uon 03-13-20 S.PNEUMONIAE AG,U Negative Normal Negative [facility] Comment on above: Result Comment: Pres umptive negative for pneumococcal pneumonia, suggesting no current or recent infection. Infection due to S. pneumoniae cannot be ruled out since the antigen present in the sample may be below the detection limit of the test. Performed By: #### S PNAG #### [facility] [address] [place] [address] TH CHEST 1 VIEWon 03-13-2021 TH CHEST 1 VIEW Patient Name: BROCK COLEY STUDY: CHEST 1 VIEW; 03/13/2021 6:08 am INDICATION: desat. COMPARISON: 03/12/2021 ACCESSION NUMBER(S): [id number] ORDERING CLINICIAN: ANNA MAN FINDINGS: AP radiograph [...] Electronically signed by: BASILIO OLIVAREZ MD Normal [facility] VANCOMYCIN,TROUGHon 03-13-20 21 VANCOMYCIN,TROUGH 12.8 ug/mL Normal 5.0 - 20.0 [facility] Comment on above: Result Comment: Vanc [...] 2009. Performed By: #### V ANCT #### [facility] [address] [place] [address] C-REACTIVE PROTEINon 021 C-REACTIVE PROTEIN 11.18 mg/dL Abnormal [facility] Comment on above: Result Comment: REF VALUE < 1.00 Performed By: #### C RP #### [facility] [address] [place] [address] CBC AND DIFFERENTIALon 03-12 % AUTOMATED IMMATURE GRAN 0.5 % Normal 0.0 - 0.9 [facility] Comment on above: Result Comment: Suellen ture Granulocyte Count (IG) includes promyelocytes, myelocytes and metamyelocytes but does not include bands. Percent differential counts (%) should be interpreted in the context of the absolute cell counts (cells/L). Performed By: #### C BCDF #### [facility] [address] [place] [address] Basophils (Bld) [#/Vol] 0.03 10*3/uL Normal 0.00 - 0.10 [facility] Comment on above: Performed By: #### C BCDF #### [facility] [address] [place] [address] Basophils/100 WBC (Bld) 0.3 % Normal 0.0 - 2.0 [facility] Comment on above: Performed By: #### C BCDF #### [facility] [address] [place] [address] Eosinophils (Bld) [#/Vol] 0.15 10*3/uL Normal 0.00 - 0.70 [facility] Comment on above: Performed By: #### C BCDF #### [facility] [address] [place] [address] Eosinophils/100 WBC (Bld) 1.6 % Normal 0.0 - 6.0 [facility] Comment on above: Performed By: #### C BCDF #### [facility] [address] [place] [address] Erythrocyte distribution width (RBC) [Ratio] 12.1 % Normal 11.5 - 14.5 [facility] Comment on above: Performed By: #### C BCDF #### [facility] [address] [place] [address] Hematocrit (Bld) [Volume fraction] 37.4 % Low 41.0 - 52.0 [facility] Comment on above: Performed By: #### C BCDF #### [facility] [address] [place] [address] Hemoglobin (Bld) [Mass/Vol] 13.0 g/dL Low 13.5 - 17.5 [facility] Comment on above: Performed By: #### C BCDF #### [facility] [address] [place] [address] Lymphocytes (Bld) [#/Vol] 2.27 10*3/uL Normal 1.20 - 4.80 [facility] Comment on above: Performed By: #### C BCDF #### [facility] [address] [place] [address] Lymphocytes/100 WBC (Bld) 24.0 % Normal 13.0 - 44.0 [facility] Comment on above: Performed By: #### C BCDF #### [facility] [address] [place] [address] MCHC (RBC) [Mass/Vol] 34.8 g/dL Normal 32.0 - 36.0 [facility] Comment on above: Performed By: #### C BCDF #### [facility] [address] [place] [address] MCV (RBC) [Entitic vol] 97 fL Normal 80 - 100 [facility] Comment on above: Performed By: #### C BCDF #### [facility] [address] [place] [address] Monocytes (Bld) [#/Vol] 0.95 10*3/uL Normal 0.10 - 1.00 [facility] Comment on above: Performed By: #### C BCDF #### [facility] [address] [place] [address] Monocytes/100 WBC (Bld) 10.1 % Normal 2.0 - 10.0 [facility] Comment on above: Performed By: #### C BCDF #### [facility] [address] [place] [address] Neutrophils (Bld) [#/Vol] 6.00 10*3/uL Normal 1.20 - 7.70 [facility] Comment on above: Performed By: #### C BCDF #### [facility] [address] [place] [address] Neutrophils/100 WBC (Bld) 63.5 % Normal 40.0 - 80.0 [facility] Comment on above: Performed By: #### C BCDF #### [facility] [address] [place] [address] NUCLEATED RBC 0.0 /100 WBC Normal 0.0-0.0 [facility] Comment on above: Performed By: #### C BCDF #### [facility] [address] [place] [address] Platelets (Bld) [#/Vol] 406 10*3/uL Normal 150 - 450 [facility] Comment on above: Performed By: #### C BCDF #### [facility] [address] [place] [address] RBC 3.84 x10E12/L Low 4.50 - 5.90 [facility] Comment on above: Performed By: #### C BCDF #### [facility] [address] [place] [address] WBC (Bld) [#/Vol] 9.5 10*3/uL Normal 4.4 - 11.3 [facility] Comment on above: Performed By: #### C BCDF #### [facility] [address] [place] [address] Daily Progress Note-Medicine on 03-12-2021 Daily Progress Note-Medicine Service: Medicine Subjective Data: BROCK COLEY is a 66 year old Male who is Hospital Day # 2. Objective Data: Objective Information: T PRBPSpO2 [id number]/8491% Date/Time03/12 13: 13: 13: 13: 13:18 Range(35.5C [...] is a 66 year old Male with yrngr-0-qnkdvqcqhn deficiency (on weekly Prolastin-C, 1000mg IV every [...] to 2-3 L Below plan not updated #Obtxc-0-zorosjawqck deficiency #Emphysema with severe copd s/p LLL [...] the note. I personally evaluated the patient [id number] Comments/ Additional Findings Please refer to H&P Electronic Signatures: Anna Johnson (Resident)) (Signed 12-Mar-2021 14:40) Authored: Subjective (more content not included)... Normal [facility] LEGIONELLA AG, URINEon 03-12 Lab Specimen Source Normal [facility] Comment on above: Performed By: #### C BCDF #### [facility] [address] [place] [address] MAGNESIUMon 03-12-2021 Magnesium [Mass/Vol] 2.24 mg/dL Normal 1.60 - 2.40 [facility] Comment on above: Performed By: #### M G #### [facility] [address] [place] [address] RENAL FUNCTION PANELon 03-12 Albumin [Mass/Vol] 3.9 g/dL Normal 3.4 - 5.0 [facility] Comment on above: Performed By: #### R ENAL #### [facility] [address] [place] [address] Anion gap [Moles/Vol] 13 mmol/L Normal 10 - 20 [facility] Comment on above: Performed By: #### R ENAL #### [facility] [address] [place] [address] Calcium [Mass/Vol] 9.3 mg/dL Normal 8.6 - 10.6 [facility] Comment on above: Performed By: #### R ENAL #### [facility] [address] [place] [address] Chloride [Moles/Vol] 100 mmol/L Normal 98 - 107 [facility] Comment on above: Performed By: #### R ENAL #### [facility] [address] [place] [address] Creatinine [Mass/Vol] 0.83 mg/dL Normal 0.50 - 1.30 [facility] Comment on above: Performed By: #### R ENAL #### [facility] [address] [place] [address] GFR- AM. >60 Normal >60 [facility] Comment on above: Result Comment: CALC ULATIONS OF ESTIMATED GFR ARE PERFORMED USING THE MDRD STUDY EQUATION FOR THE IDMS-TRACEABLE CREATININE METHODS. CLIN CHEM 2007;53:766-72 Performed By: #### R ENAL #### [facility] [address] [place] [address] GFR-NON AM. >60 Normal >60 [facility] Comment on above: Performed By: #### R ENAL #### [facility] [address] [place] [address] Glucose [Mass/Vol] 114 mg/dL High 74 - 99 [facility] Comment on above: Performed By: #### R ENAL #### [facility] [address] [place] [address] HCO3 (Bld) [Moles/Vol] 25 mmol/L Normal 21 - 32 [facility] Comment on above: Performed By: #### R ENAL #### [facility] [address] [place] [address] Phosphate [Mass/Vol] 4.0 mg/dL Normal 2.5 - 4.9 [facility] Comment on above: Result Comment: The performance characteristics of phosphorus testing in heparinized plasma have been validated by the individual laboratory site where testing is performed. Testing on heparinized plasma is not approved by the FDA; however, such approval is not necessary. Performed By: #### R ENAL #### [facility] [address] [place] [address] Potassium [Moles/Vol] 4.2 mmol/L Normal 3.5 - 5.3 [facility] Comment on above: Performed By: #### R ENAL #### [facility] [address] [place] [address] Sodium [Moles/Vol] 134 mmol/L Low 136 - 145 [facility] Comment on above: Performed By: #### R ENAL #### [facility] [address] [place] [address] Urea nitrogen [Mass/Vol] 15 mg/dL Normal 6 - 23 [facility] Comment on above: Performed By: #### R ENAL #### [facility] [address] [place] [address] RESPIRATORY CULT./SM,LOWERon 03-12-2021 RESPIRATORY CULT./SM,LOWER PATIENT: BROCK COLEY LOCATION: [address]#: [id number] : 53 AGE: SEX: M ORDERED BY: ANNA JOHNSON SOURCE: SPUTUM COLLECTED: 03/12/21 13:04 ANTIBIOTICS AT DIO.: RECEIVED : 03/12/21 15:41 SITE: R E S U L T S GRAM STAIN FINAL 03/12/21 16:45 GRAM STAIN INDICATES SPECIMEN CONSISTS OF LOWER RESPIRATORY TRACT SECRETIONS. NO PREDOMINANT ORGANISM. RESPIRATORY CULT./SM,LOWER FINAL 03/14/21 11:59 NORMAL THROAT MELANIE. Normal [facility] Comment on above: Performed By: #### R ESPL #### [facility] [address] [place] [address] TH CHEST 1 VIEWon 03-12-2021 TH CHEST 1 VIEW Patient Name: BROCK COLEY STUDY: CHEST 1 VIEW; 03/12/2021 3:53 am INDICATION: COPD with HAP. COMPARISON: 03/11/2021 ACCESSION NUMBER(S): [id number] ORDERING CLINICIAN: MAX CHAMPION FINDINGS: AP radiograph [...] Electronically signed by: BASILIO OLIVAREZ MD Normal [facility] Admission Risk Screen - Adul ton [...] AlertFor Ebola-like Symptoms: Isolate Patient and Notify Provider/Snow Fence Erector For Contact: Notify Provider/Snow Fence Erector Advance Directive: Advance Directive/DNRno Advance Directive Information [...] Learning Preferencesverbal instruction Cultural Considerationsnone Developmental Considerationsnone Episcopal Considerationsnone Learning Assessment (Other Learner): Other learner availableyes... Learnerspouse Factors Influencing Readiness to Learnnone Factors that Impact Ability to Learnnone Devices/Methods Used to Communicatenone Learning Preferencesverbal instruction Cultural Considerationsnone Developmental Considerationsnone Episcopal Considerationsnone Depression Screen: During the past month, have you often been bothered by feeling down, depressed or hopelessno During the past month, have you often had little interest or pleasure in doing thingsno Have you had any thoughts of harming anyone elseno [place] Suicide: Risk Screen Not Applicable/Able to Answerable to be screened In the Past Month: Have you wished you were or could go to sleep and not wake upno In the Past Month: Have you had any actual thoughts of killing yourselfno Lifetime: Have you ever done, started to do, or prepared to do anything to end your lifeno [place] Suicide Risknegative Adult Nutrition Screen: Have you [...] = Non (more content not included)... Normal [facility] BLOOD CULTURE, BACTERIALon 0 03-11-2021 BLOOD CULTURE, BACTERIAL PATIENT: BROCK COLEY LOCATION: [address] BILL#: [id number] : 53 AGE: SEX: M ORDERED BY: MIRIAM MARKS SOURCE: Blood COLLECTED: 03/11/21 17:20 ANTIBIOTICS AT DIO.: RECEIVED : 03/11/21 18:34 SITE: PERIPHERAL R E S U L T S BLOOD CULTURE, BACTERIAL FINAL 03/16/21 19:42 No Growth at 1 days No Growth at 2 days No Growth at 3 days No Growth at 4 days NO GROWTH - FINAL REPORT [facility] Comment on above: Performed By: #### C BCDF #### [facility] [address] [place] [address] BLOOD CULTURE, BACTERIAL PATIENT: BROCK COLEY LOCATION: [address] BILL#: [id number] : 53 AGE: SEX: M ORDERED BY: MIRIAM MARKS SOURCE: Blood COLLECTED: 03/11/21 17:19 ANTIBIOTICS AT DIO.: RECEIVED : 03/11/21 18:34 SITE: PERIPHERAL R E S U L T S BLOOD CULTURE, BACTERIAL FINAL 03/16/21 19:42 No Growth at 1 days No Growth at 2 days No Growth at 3 days No Growth at 4 days NO GROWTH - FINAL REPORT [facility] Comment on above: Performed By: #### C BCDF #### [facility] [address] [place] [address] C-REACTIVE PROTEINon 021 C-REACTIVE PROTEIN 11.84 mg/dL Abnormal [facility] Comment on above: Result Comment: REF VALUE < 1.00 Performed By: #### C RP #### [facility] [address] [place] [address] CBC AND DIFFERENTIALon 03-11 % AUTOMATED IMMATURE GRAN 0.3 % Normal 0.0 - 0.9 [facility] Comment on above: Result Comment: Suellen ture Granulocyte Count (IG) includes promyelocytes, myelocytes and metamyelocytes but does not include bands. Percent differential counts (%) should be interpreted in the context of the absolute cell counts (cells/L). Performed By: #### C RP #### [facility] [address] [place] [address] Basophils (Bld) [#/Vol] 0.03 10*3/uL Normal 0.00 - 0.10 [facility] Comment on above: Performed By: #### C RP #### [facility] [address] [place] [address] Basophils/100 WBC (Bld) 0.3 % Normal 0.0 - 2.0 [facility] Comment on above: Performed By: #### C RP #### [facility] [address] [place] [address] Eosinophils (Bld) [#/Vol] 0.10 10*3/uL Normal 0.00 - 0.70 [facility] Comment on above: Performed By: #### C RP #### [facility] [address] [place] [address] Eosinophils/100 WBC (Bld) 1.0 % Normal 0.0 - 6.0 [facility] Comment on above: Performed By: #### C RP #### [facility] [address] [place] [address] Erythrocyte distribution width (RBC) [Ratio] 12.1 % Normal 11.5 - 14.5 [facility] Comment on above: Performed By: #### C RP #### [facility] [address] [place] [address] Hematocrit (Bld) [Volume fraction] 39.3 % Low 41.0 - 52.0 [facility] Comment on above: Performed By: #### C RP #### [facility] [address] [place] [address] Hemoglobin (Bld) [Mass/Vol] 13.5 g/dL Normal 13.5 - 17.5 [facility] Comment on above: Performed By: #### C RP #### [facility] [address] [place] [address] Lymphocytes (Bld) [#/Vol] 2.00 10*3/uL Normal 1.20 - 4.80 [facility] Comment on above: Performed By: #### C RP #### [facility] [address] [place] [address] Lymphocytes/100 WBC (Bld) 20.6 % Normal 13.0 - 44.0 [facility] Comment on above: Performed By: #### C RP #### [facility] [address] [place] [address] MCHC (RBC) [Mass/Vol] 34.4 g/dL Normal 32.0 - 36.0 [facility] Comment on above: Performed By: #### C RP #### [facility] [address] [place] [address] MCV (RBC) [Entitic vol] 98 fL Normal 80 - 100 [facility] Comment on above: Performed By: #### C RP #### [facility] [address] [place] [address] Monocytes (Bld) [#/Vol] 0.98 10*3/uL Normal 0.10 - 1.00 [facility] Comment on above: Performed By: #### C RP #### [facility] [address] [place] [address] Monocytes/100 WBC (Bld) 10.1 % Normal 2.0 - 10.0 [facility] Comment on above: Performed By: #### C RP #### [facility] [address] [place] [address] Neutrophils (Bld) [#/Vol] 6.59 10*3/uL Normal 1.20 - 7.70 [facility] Comment on above: Performed By: #### C RP #### [facility] [address] [place] [address] Neutrophils/100 WBC (Bld) 67.7 % Normal 40.0 - 80.0 [facility] Comment on above: Performed By: #### C RP #### [facility] [address] [place] [address] NUCLEATED RBC 0.0 /100 WBC Normal 0.0-0.0 [facility] Comment on above: Performed By: #### C RP #### [facility] [address] [place] [address] Platelets (Bld) [#/Vol] 393 10*3/uL Normal 150 - 450 [facility] Comment on above: Performed By: #### C RP #### [facility] [address] [place] [address] RBC 4.01 x10E12/L Low 4.50 - 5.90 [facility] Comment on above: Performed By: #### C RP #### [facility] [address] [place] [address] WBC (Bld) [#/Vol] 9.7 10*3/uL Normal 4.4 - 11.3 [facility] Comment on above: Performed By: #### C RP #### [facility] [address] [place] [address] COMPREHENSIVE PANELon 2020 Albumin [Mass/Vol] 4.2 g/dL Normal 3.4 - 5.0 [facility] Comment on above: Performed By: #### C BCDF #### [facility] [address] [place] [address] ALP [Catalytic activity/Vol] 93 U/L Normal 33 - 136 [facility] Comment on above: Performed By: #### C BCDF #### [facility] [address] [place] [address] ALT [Catalytic activity/Vol] 82 U/L High 10 - 52 [facility] Comment on above: Result Comment: Oksana ents treated with Sulfasalazine may generate falsely decreased results for ALT. Performed By: #### C BCDF #### [facility] [address] [place] [address] Anion gap [Moles/Vol] 17 mmol/L Normal 10 - 20 [facility] Comment on above: Performed By: #### C BCDF #### [facility] [address] [place] [address] AST [Catalytic activity/Vol] 37 U/L Normal 9 - 39 [facility] Comment on above: Performed By: #### C BCDF #### [facility] [address] [place] [address] Bilirubin [Mass/Vol] 0.5 mg/dL Normal 0.0 - 1.2 [facility] Comment on above: Performed By: #### C BCDF #### [facility] [address] [place] [address] Calcium [Mass/Vol] 9.6 mg/dL Normal 8.6 - 10.6 [facility] Comment on above: Performed By: #### C BCDF #### [facility] [address] [place] [address] Chloride [Moles/Vol] 101 mmol/L Normal 98 - 107 [facility] Comment on above: Performed By: #### C BCDF #### [facility] [address] [place] [address] Creatinine [Mass/Vol] 0.68 mg/dL Normal 0.50 - 1.30 [facility] Comment on above: Performed By: #### C BCDF #### [facility] [address] [place] [address] GFR- AM. >60 Normal >60 [facility] Comment on above: Result Comment: CALC ULATIONS OF ESTIMATED GFR ARE PERFORMED USING THE MDRD STUDY EQUATION FOR THE IDMS-TRACEABLE CREATININE METHODS. CLIN CHEM 2007;53:766-72 Performed By: #### C BCDF #### [facility] [address] [place] [address] GFR-NON AM. >60 Normal >60 [facility] Comment on above: Performed By: #### C BCDF #### [facility] [address] [place] [address] Glucose [Mass/Vol] 100 mg/dL High 74 - 99 [facility] Comment on above: Performed By: #### C BCDF #### [facility] [address] [place] [address] HCO3 (Bld) [Moles/Vol] 23 mmol/L Normal 21 - 32 [facility] Comment on above: Performed By: #### C BCDF #### [facility] [address] [place] [address] Potassium [Moles/Vol] 4.7 mmol/L Normal 3.5 - 5.3 [facility] Comment on above: Performed By: #### C BCDF #### [place] [address] [place] [address] Protein [Mass/Vol] 7.1 g/dL Normal 6.4 - 8.2 [facility] Comment on above: Performed By: #### C BCDF #### [facility] [address] [place] [address] Sodium [Moles/Vol] 136 mmol/L Normal 136 - 145 [facility] Comment on above: Performed By: #### C BCDF #### [facility] [address] [place] [address] Urea nitrogen [Mass/Vol] 15 mg/dL Normal 6 - 23 [facility] Comment on above: Performed By: #### C BCDF #### [facility] [address] [place] [address] Clinical Event Note-Senior Vish marte noteon 03-11-2021 [...] no limb edema, not in distress. Received [employer] 2nd dose in . CT chest, 03/11: [...] 17:37 by Max Champion ( (Resident)) Normal [facility] Consult-Pulmonologyon 2020 Consult-Pulmonology Service: Service: Pulmonology [...] ~17 mmHg SURGICAL HX: Cholecystectomy 2009 at [facility] FAMILY HX: Multiple members- COPD, [...] the note. I personally evaluated the patient [id number] (more content not included)... Normal [facility] Discharge Planning Vzkl0fe 0 03-11-2021 Discharge Planning Note2 Discharge Planning: Needs Prior to Discharge (ex. Home Care Orders, IV/O2 prescriptions) f/u appts Planned Dispositionhome Discharge DestinationHome with spouse AMPAC < 20no Anticipated Discharge [id number] Discharge Planning Admission Note: 03/11/21 14:55 Pt admitted from his pulmonologists office. He presented with intermittent fevers and a decreased pulse ox with activity. Pt's vital signs are stable and he is afebrile. He has no c/o pain. Awaiting MD orders. Lisa Hernandez RN. ambulance assistant Note: 03/15/21 1400 Pt dc home with . Pt given meds to bed and remains on 4L 02. Pt educated on discharge instructions and follow up appointment. Stephania Tran RN Discharge Barriersnone Assessment: Discharge Planning Assessment [id number] Discharge Planning Assessment Completed Ant Siddiqui RNstripping cutter and winder Coordinator Primary Contact Name and NumberDarlene (spouse)-[phone]/ Stated Reason for AdmissionI was having fevers at home.(1) Arrived Fromphysician office (1) PCPLauritarburt Glover- banquet lead PCP Last Date Seen04/2020 [facility] [place] Medication Adherence/Afford/Obtainye s InsuranceMedi A/B/Aetna Sr Supp Lives Withspouse; pt's phone #: [phone] Living Arrangementshouse(1) Recent Falls/ Injury/ Need Assist with Ambulationdenies Prior Level of Functioningindependent with ADLS Equipment Currently Used at HomeN/A Home Care Agency/Support ServicesN/A DME Supplier Name/NumberN/A Home O2/BiPAP/CPAPHome O2 O2 L[place]4L [place] Home O2 Supplier[facility] [phone] Diabetic/Supplies NeededN/A Hemodialysis ScheduleN/A Resource/Environmental Concernsnone(1) Social [...] to follow for discharge needs. Vaishali Siddiqui RNstripping cutter and winder Coordinator Discharge Documentation: Discharge/Transfer Date/[id number] Electronic Signatures: Lisa Hernandez (RN) (Signed 11-Mar-2021 18:00) Authored: Discharge Planning, Assessment, Discharge Documentation Vaishali Siddiqui (CLIN COOR) (Signed 14-Mar-2021 15:04) Authored: Discharge Planning, Assessment Stephania Tran (RN) (Signed 15-Mar-2021 14:29) Authored: Discharge Planning Last Updated: 15-Mar-2021 14:29 by Stephania Tran (RN) References: 1. Data Referenced From Patient Profile - Adult v2 11-Mar-2021 17:52 [facility] Discharge [id number] 021 Discharge Profile2 Discharge Orders: Anticipated Discharge Date: Anticipated Discharge [id number] Anticipated Discharge Time13:38 DNAR: DNAR Status: none Oxygen: Administer oxygen at 4 via to maintain SpO2 % of. Hospital Course (Home Care/Gold Form): Hospital Course: Hospital Course: include significant abnormal lab values Mr. Brock Coley is a 66 year old Male with gwxai-4-mgrqkitebo deficiency (on weekly Prolastin-C, 1000mg IV every [...] at 15-Mar-2021 13:39:15 Appointments: Follow-Up Appointment 01: Physician/Dept/Sue. Viraj [place] Primary Care Physician Scheduled Date/Vvzt63-Vfn-1522 09:00 [place] [address] Phone [phone] CommentsPlease arrive 10-15 minutes early, bring photo ID, insurance cards, discharge summary, and a list of current medications. Please call the office if you need to change this appointment. Follow-Up Appointment 02: Physician/Dept/Ryan swanson Research Biostatistician Reason for ReferralCOPD Call to Schedule in1 week [facility] Electronic Signatures: Max Champion ( (Resident)) (Signed 15-Mar-2021 13:39) Authored: Discharge Orders, Hospital Course (Home Care/Gold Form), Provider FINAL REVIEW of Orders, Appointments Franki Palacios ( (Resident)) (Signed 15-Mar-2021 08:29) Authored: Discharge Orders, Hospital Course (Home Care/Gold Form), Provider FINAL REVIEW of Orders Arleth Solares ( (Resident)) (Signed 11-Mar-2021 20:21) Authored: Discharge Orders, Hospital Course (Home Care/Gold Form), Gold Form - Railroad Dispatcher Summary Alyson Cao (PT ACC REP) (Signed 15-Mar-2021 11:40) Authored: Discharge Orders, Appointments Last Updated: 15-Mar-2021 13:39 by Max Champion ( (Resident)) [facility] Follow Up (Pulmonary Medicin e)on 03-11-2021 [...] History: +COPD +Leukemia +gastric cancer Active Problems Tphvh-1-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 Vitals Vital Signs Recorded: 11Mar2021 01:01PM Tskbscassbi27.4 C Heart Rate92 Systolic1 (more content not included)... Normal [facility] Order Reconciliationon 03-11 Order Reconciliation Page 1 Admission Reconciliation Document Reconciliation Type: Admission requested on behalf of Max Champion (Resident) done by Max Champion (Resident)) Admission - Reconciliation: 11-Mar-2021 16:07 by: Max Champion (Resident)) Home MedicationsEnteredLast Dose TakenReconciled with current Order Reconciliation Comment/ Additional Information albuterol 90 mcg/inh inhalation aerosol with adapter 2 puff(s) inhaled every 4 hours, As Vtpuze09-Rmx-7772 Albuterol 2.5 mg/ 3 mL Nebulizer Soln (PROVENTIL)DOSE = 3 mL Inhalation Every 4 Hours via Nebulizeralbuterol 90 mcg/inh inhalation aerosol with adapter continued as the inpatient order Albuterol 2.5 mg/ 3 mL Nebulizer Soln Aspirin Low Dose 81 mg oral tablet, chewable 1 orally once a gks96-Rej-4616 Aspirin Chewable Tablet, ChewableDOSE = 81 mg Oral DailyAspirin Low Dose 81 mg oral tablet, chewable continued as the inpatient order Aspirin Chewable Multiple Vitamins oral tablet 1 tab(s) orally once a [id number]-Vab-5703 Vitamin B Complex with C EachDOSE = 1 each Oral DailyMultiple Vitamins oral tablet continued as the inpatient order Vitamin B Complex with C primidone 250 mg oral tablet 1 orally every 12 qbcwi78-Rgb-5929 Primidone Tablet (MYSOLINE)DOSE = 250 mg Oral [...] inhalation powder 1 puff(s) inhaled once a mzb91-Iki-4683 Reviewed and Held vitamin E 400 intl units oral capsule 1 cap(s) orally once a szd90-Vrd-1954 Reviewed and Held [facility] Patient Profile - Adult v2on 03-11-2021 [...] e(1) Weight in kg111.3 kilogram(s)(2) Weight in kvc172.3 pound(s) Weight Methodstated Scale Typebed Height in [...] From 1. Vital Signs 11-Mar-2021 15:12 [facility] RESPIRATORY CULT./SM,LOWERon 03-11-2021 RESPIRATORY CULT./SM,LOWER PATIENT: BROCK COLEY LOCATION: [address] BILL#: [id number] : 53 AGE: SEX: M ORDERED BY: [...] INDICATED. RESPIRATORY CULT./SM,LOWER CANCELLED 03/12/21 09:05 [facility] Comment on above: Performed By: #### C RP #### [facility] [address] [place] [address] STAPH/MRSA SCREENon 03-11-20 STAPH/MRSA SCREEN PATIENT: JAMIR COLEY LOCATION: [address] BILL#: [id number] : 53 AGE: SEX: M ORDERED BY: MIRIAM MARKS SOURCE: MISC COLLECTED: 03/11/21 18:33 ANTIBIOTICS AT DIO.: RECEIVED : 03/11/21 22:02 SITE: Nasal/Groin and Axilla R E S U L T S STAPH/MRSA SCREEN FINAL 03/13/21 10:45 NO Staphylococcus aureus ISOLATED. [facility] Comment on above: Performed By: #### C RP #### [facility] [address] [place] [address] TH CHEST 2 VIEW PA AND LATon 03-11-2021 TH CHEST 2 VIEW PA AND LAT Patient Name: BROCK COLEY STUDY: TH CHEST 2 VIEW PA AND LAT; 03/11/2021 5:21 pm INDICATION: COPD with HAP. COMPARISON: Prior chest radiograph from 03/03/2021 ACCESSION NUMBER(S): [id number] ORDERING CLINICIAN: MAX CHAMPION FINDINGS: PA and [...] Electronically signed by: BASILIO OLIVAREZ MD [facility] TH CT CHEST WO CONTRASTon TH CT CHEST WO CONTRAST STUDY: CT Chest without IV Contrast; 03/11/2021 11:19 AM INDICATION: [place] valve, emphysema, shortness of breath. Chronic respiratory failure with hypoxia. COMPARISON: 03/03/2021 XR Chest. ACCESSION NUMBER(S): [id number] ORDERING CLINICIAN: SALINAS RUIZ MD TECHNIQUE: CT [...] Electronically signed by: CARMENZA SANTOS DO [facility] No Panel Informationon 03-03 Please click [...] lobe. COMPARISON: Chest radiograph 03/03/2021. ACCESSION NUMBER(S): [id number] ORDERING CLINICIAN: AMBER ARROYO FINDINGS: PA chest [...] as stated. This study was interpreted at [place], [place]. Electronically signed by: Ollie HAGER MD [facility] TH CHEST 1 VIEWon 03-03-2021 TH CHEST 1 VIEW Patient Name: BROCK COLEY STUDY: CHEST 1 VIEW; 03/03/2021 5:04 am INDICATION: post LLL endobronchial valve insertion. COMPARISON: 03/02/2021 ACCESSION NUMBER(S): [id number] ORDERING CLINICIAN: ZIYAD WILLINGHAM FINDINGS: AP radiograph [...] Electronically signed by: MANDY JIMENEZ MD [facility] Daily Progress Note-DACRon 0 03-02-2021 Daily Progress Note-DACR Service: DACR Subjective Data: BROCK COLEY is a 65 year old Male who is Hospital Day # 3. Additional Information: Pt seen and examined at bedside. No acute events overnight per RN. Pt companding of some L chest soreness otherwise has no complaints at this time. Objective Data: Objective Information: T PRBPSpO2 Value36.68152708/7993% Date/Time03/02 9: 9: 9: 9: 9:36 Range(36.2C [...] the note. I personally evaluated the patient [id number] Electronic Signatures: Thang Lorenzo) (Signed 02-Mar-2021 21:32) Authored: Note Completion Co-Signer: Objective Data, Assessment and Plan, Note Completion Amber Arroyo (Resident)) (Signed 02-Mar-2021 15:30) Authored: Service, Subjective Data, Objective Data, Assessment and Plan, Note Completion Last Updated: 02-Mar-2021 21:32 by Thang Lorenzo) [facility] Order Reconciliationon 03-02 Order Reconciliation Page 1 [...] Additional Information Albuterol 90 micrograms/ Inhalation MDI (PROVENCONSTANTINE CHIRINOS)DOSE = 2 inhalation Every 4 Hours via [...] 1 inhalation Every 12 HoursNotes from Pharmacy: [facility] 01-Mar-2021 13:15 Fluticasone 100 microgram -Salmeterol 50 [...] weekly o (more content not included)... [facility] Radiologyon 03-02-2021 XR Chest Single view Normal [facility] Sleep-Se[facility] n Work Phone: [phone] CHEST 1 VIEWon 03-02-2021 TH CHEST 1 VIEW Patient Name: BROCK COLEY STUDY: CHEST 1 VIEW; 03/02/2021 4:23 am INDICATION: AM CXR, daily cxr following endobronchial valve placement, eval for pneumothorax. COMPARISON: 03/01/2021 ACCESSION NUMBER(S): [id number] ORDERING CLINICIAN: COLTON RICH FINDINGS: Portable AP [...] edema. Electronically signed by: BASILIO OLIVAREZ MD [facility] Daily Progress Note-DACRon 0 03-01-2021 Daily Progress Note-DACR Service: DACR Subjective Data: BROCK COLEY is a 65 year old Male who is Hospital Day # 2. -No acute events overnight -Patient feeling well this AM, no dyspnea. Objective Data: Objective Information: T PRBPSpO2 Value36.62416964/5797% Date/Time03/01 14: 14: 14: 14: 14:35 Range(35.7C [...] Updated: 01-Mar-2021 16:07 by Thang Lorenzo) [facility] Discharge Planning [id number] 0 03-01-2021 Discharge Planning Note2 Discharge Planning: Needs Prior to Discharge (ex. Home Care Orders, IV/O2 prescriptions) F/u appts Discharge Barriers (ex. 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 Team members present: DOMINIQUE and MD Plan per Medical/Surgical team: Needs to be monitored 3 days after Bronch procedure, monitoring labs and vitals Payer: Medicare Status: Observation Discharge disposition: Home no needs Potential Barriers: None at this time ADOD: 03/04 M. Kusum Eubanks RN BSN Transitional Hook And Eye Sewing Machine Operator [phone] Transitional Hook And Eye Sewing Machine Operator Note: 03/01/2021@ 13:53 Met with patient/ to introduce myself, role and discus discharge planning. Patient lives with his spouse. Independent in all ADL's. Requires no assist devices for ambulation. Denies active home care or home care needs. Will continue to monitor patient for all home going needs. Abbey Portillo RN [facility] [phone] 03/03/21 9:30 AM Transitional Care Coordination Progress Note: Patient discussed during interdisciplinary rounds. Team members present: TCC and MD Plan per Medical/Surgical team: Pt scheduled for priority Tomogram today, monitoring labs and vitals Payer: Medicare Status: Inpatient Discharge disposition: Home no needs Potential Barriers: None at this time ADOD: 03/04 M. Kusum Eubanks RN BSN Transitional [employer] Sewing Machine Operator [phone] Assessment: Discharge Planning Assessment [id number] Discharge Planning Assessment Completed byAbbey Portillo RN [facility] [phone] Primary Contact Name and NumberDarlenana Valles () [phone] Tacho Glover DO Preferred Pharmacy Name/Location[facility] Medication Adherence/Afford/Obtainye s InsuranceMedicare A/B and Aetna Sr Supplement Lives Withspouse Living Arrangementshouse Recent Falls/ Injury/ Need Assist with AmbulationN/A Prior Level of FunctioningIndependent Home Care Agency/Support ServicesN/A Diabetic/Supplies NeededN/A Hemodialysis ScheduleN/A Social Determinants of Health IdentifiedHealth Literacy Transportation Home Who/HowDarzaheere will be providing transportation when discharged. Anticipated [...] by Aditya Arnold (ADV CLIN N) [facility] Discharge [id number] Discharge Profile2 Discharge Orders: Anticipated Discharge Date: Anticipated Discharge [id number] DNAR: DNAR Status: none Hospital Course (Home [...] in the next few days. Please call [phone] ( ) if you do not hear back by then to inquire about appointment. Please arrive 15 minutes early and bring photo ID, insurance card, and medication list. If unable to attend appointment, please call to cancel within 24 hours. Electronic Signatures: Colton Rich (Resident)) (Signed 01-Mar-2021 15:54) Authored: Discharge Orders, Hospital Course (Home Care/Gold Form), Gold Form - Railroad Dispatcher Summary Amber Arroyo (Resident)) (Signed 03-Mar-2021 12:15) Authored: Discharge Orders, Provider FINAL REVIEW of Orders, Appointments Last Updated: 03-Mar-2021 12:15 by Amber Arroyo (Resident)) [facility] GLUCOSE-POCTon 03-01-2021 Glucose [Mass/Vol] 110 mg/dL High 74 - 99 [facility] Comment on above: Performed By: #### C BCDF #### [facility] [address] [place] [address] Glucose [Mass/Vol] 90 mg/dL Normal 74 - 99 [facility] Comment on above: Performed By: #### C RP #### [facility] [address] [place] [address] Glucose [Mass/Vol] 124 mg/dL High 74 - 99 [facility] Comment on above: Performed By: #### G KATELYN ####[id number] [place] [address] Laboratory - Chemistry and C hemistry - [...] am INDICATION: pneumothorax. COMPARISON: 02/28/2021 ACCESSION NUMBER(S): [id number] ORDERING CLINICIAN: BRANDON EISENBERG FINDINGS: AP radiograph [...] as stated. This study was interpreted at [facility], [place], [place]. Electronically signed by: CAMERON SALMERON MD [facility] Consult-Thoracic and Esophag eal Surgeryon 02-28-2021 [...] Known Allergies: Objective: Objective Information: T PRBPSpO2 Value36.37279174/5499% Date/Time03/01 6: 6: 6: 6: 6:50 Range(35.7C [...] Eisenberg. Madhuri Nur MD PGY-2 Thoracic Surgery [address]6650 Consult Status: Consult Order ID: [id number] Attestation: Note Completion: I am a: Resident/Fellow [...] the note. I personally evaluated the patient [id number] Electronic Signatures: Madhuri Nur ( (Resident)) (Signed 01-Mar-2021 09:00) Authored: Service, History of Present Illness, Review Family/Social History and ROS, Allergies, Objective, Assessment/Recommendation s, Note Completion Brandon Eisenberg) (Signed 14-Mar-2021 16:38) Authored: Note Completion Co-Signer: History of Present Illness, Objective, Note Completion Last Updated: 14-Mar-2021 16:38 by Brandon Eisenberg) References: 1. Data Referenced From Consult-Thoracic and Esophageal Surgery 28-Feb-2021 18:32 [facility] Consult-Thoracic and Esophageal Surgery Service: Service: [...] Known Allergies: Objective: Objective Information: T PRBPSpO2 Value36.48293225/7698% Date/Time02/28 18: 18: 18: 18: 18: Range(35.7C [...] for a pneumothorax, and is [place] to [place] [address]. Thoracic surgery consulted to evaluate and for possible chest tube placement. Recs: -daily CXR -if pt develops a pneumothorax, will place a chest tube -D/W primary team, Dr Ruiz Pt seen and examined; I discussed the pt with Dr Eisenberg Consult Status: Consult Order ID: [id number] Send Provider Communication: Note Recipients: Jeferson Glover, - [id number] [] Attestation: Note Completion: Provider/Team Pager #[phone] Electronic Signatures: Gerber Alas (TERE (PHYSICIAN)) (Signed 28-Feb-2021 19:10) Authored: Service, History of Present Illness, Review Family/Social History and ROS, Allergies, Objective, Assessment/Recommendation s, Provider Communication, Note Completion Last Updated: 28-Feb-2021 19:10 by Gerber Alas (TERE (PHYSICIAN)) [facility] No Panel Informationon 02-28 [email or web address]} [facility] Work Phone: [facility] [...] 2 puff(s) inhaled every 4 hours, As [id number] Albuterol 90 micrograms/ Inhalation MDI (PROVENTIL, VENTOLIN)DOSE = 2 inhalation Every 4 Hours via MDI, PRN Shortness of BreathNotes from Pharmacy: RCRAalbuterol 90 mcg/inh inhalation aerosol with adapter reconciled with the existing inpatient order Albuterol 90 micrograms/ Inhalation MDI Aspirin Low Dose 81 mg oral tablet, chewable 1 orally once a [id number] Aspirin Chewable Tablet, ChewableDOSE = 81 mg Oral DailyAspirin Low Dose 81 mg oral tablet, chewable reconciled with the existing inpatient order Aspirin Chewable Multiple Vitamins oral tablet 1 tab(s) orally once a [id number] Multivitamin with Minerals TabletDOSE = 1 tablet(s) Oral DailyMultiple Vitamins oral tablet reconciled with the existing inpatient order Multivitamin with Minerals primidone 250 mg oral tablet 1 orally every 12 [id number] Primidone Tablet (MYSOLINE)DOSE = 250 mg Oral [...] inhalation powder 1 puff(s) inhaled once a [id number] Tiotropium 18 micrograms/ Inhalation Capsule (SPIRIVA HANDIHALER)DOSE [...] oral capsule 1 cap(s) orally once a [id number]-Jsy-3394 Reviewed and Held Additional Current Orders Enoxaparin SubCutaneous (LOVENOX)DOSE = 40 mg SubCutaneous Every 24 Hours Melatonin TabletDOSE = 3 mg Oral At Bedtime, PRN Insomnia [facility] Radiologyon 02-28-2021 XR Chest Single view Normal [facility] Work Phone: TH CHEST 1 VIEWon 02-28-2021 TH CHEST 1 VIEW Patient Name: BROCK COLEY STUDY: CHEST 1 VIEW; 02/28/2021 3:44 pm INDICATION: s/p LLL endobronchial valve placement x5. COMPARISON: None. ACCESSION NUMBER(S): [id number] ORDERING CLINICIAN: EMERSON LUIS FINDINGS: CARDIOMEDIASTINAL SILHOUETTE: [...] Electronically signed by: Ollie HAGER MD [facility] V/Q QUANTon 02-28-2021 V/Q QUANT Patient Name: BROCK COLEY STUDY: V/Q QUANT; 02/28/2021 9:55 am INDICATION: Emphysema, respiratory failure. 65-year-old male with emphysema in setting alpha-1 antitrypsin deficiency and positive smoking history; pre-op evaluation. COMPARISON: CT chest dated 12/15/2020 ACCESSION NUMBER(S): [id number] ORDERING CLINICIAN: SALINAS RUIZ TECHNIQUE: DIVISION OF [...] as stated. This study was interpreted at [facility], [place], [place]. Electronically signed by: ALETA RAMIREZ MD [facility] Consult (Pulmonary Medicine) on 12-15-2020 Consult (Pulmonary Medicine) Diagnoses/Problems Emphysema/COPD (492.8) (J43.9) Former smoker (V15.82) (Z87.891) Chronic respiratory failure with hypoxia (518.83,799.02) (J96.11) Cluau-1-fhjvqyjzukm deficiency (273.4) (E88.01) Pre-op evaluation (V72.84) (Z01.818) Family history of chronic obstructive pulmonary disease (V17.6) (Z82.5) : Mother Family history of leukemia (V16.6) (Z80.6) : Father Family history of malignant neoplasm of stomach (V16.0) (Z80.0) : Paternal Uncle Orders Tobacco Use Screening; Status:Complete; Done: [id number] Perform:Not Applicable;Ordered; For:SocHx: Former smoker; Ordered By:Salinas [...] Emphysema, BLVR evaluation. Appointment requested by: Dr. Glover. History of Present IllnessMa2020 Mr. Coley is a 65 year old [...] last year [facility] Work Phone: [phone] Falls Risk Screening b) No [facility] Work Phone: [phone] CT CHEST WO CONTRASTon CT CHEST WO CONTRAST Patient Name: BROCK COLEY STUDY: CT CHEST WO CONTRAST; 12/15/2020 2:15 pm INDICATION: SOB, COPD. COMPARISON: None. ACCESSION NUMBER(S): [id number] ORDERING CLINICIAN: SALINAS RUIZ TECHNIQUE: Helical data [...] as stated. This study was interpreted at [place], [place]. Electronically signed by: MANDY JIMENEZ MD [facility] Blood Gas Art, with Sarah Baumann [place] 12-06-2020 a/A Ratio Art 60.30 % Normal >=0.80 [facility] Comment on above: Performed By: #### 4 [id number] #### [facility] [address] [place] [address] AaDO2 Art 38.4 mmHg High 5.0-15.0 [facility] Comment on above: Performed By: #### 4 [id number] #### [facility] [address] [place] [address] Allens Test Not Applicable Normal [facility] Comment on above: Performed By: #### 4 [id number] #### [facility] [address] [place] [address] Base Excess Arterial 1.0 mmol/L Low >=2.8 [facility] Comment on above: Performed By: #### 4 [id number] #### [facility] [address] [place] [address] cCa2+ Art 4.79 mg/dL Normal 4.40-5.30 [facility] Comment on above: Performed By: #### 4 [id number] #### [facility] [address] [place] [address] cCl- Art 106.0 mmol/L Normal 101.0-111.0 [facility] Comment on above: Performed By: #### 4 [id number] #### [facility] [address] [place] [address] cGlu Art 107.0 mg/dL Normal 55.0-199.0 [facility] Comment on above: Performed By: #### 4 [id number] #### [facility] [address] [place] [address] cK+ Art 4.3 mmol/L Normal 3.5-5.3 [facility] Comment on above: Performed By: #### 4 [id number] #### [facility] [address] [place] [address] cLac Art 1.0 mmol/L Low 5.0-14.0 [facility] Comment on above: Performed By: #### 4 [id number] #### [facility] [address] [place] [address] reconditioning associate+ Art 141.0 mmol/L Normal 135.0-145.0 [facility] Comment on above: Performed By: #### 4 [id number] #### [facility] [address] [place] [address] Drawn by krista Invalid Interpretation Code [facility] Comment on above: Performed By: #### 4 [id number] #### [facility] [address] [place] [address] FCOHb Art 1.0 % Low 1.5-4.9 [facility] Comment on above: Result Comment: Refe rence range Nonsmoker <1.5% Smoker <5.0% Heavy Smoker <9.0% Performed By: #### 4 [id number] #### [facility] [address] [place] [address] FIO2 BG 21 Invalid Interpretation Code [facility] Comment on above: Performed By: #### 4 [id number] #### [facility] [address] [place] [address] FMetHb Art 0.6 % Normal 0.0-1.9 [facility] Comment on above: Performed By: #### 4 [id number] #### [facility] [address] [place] [address] FO2Hb Art 90.4 % Low 93.0-100.0 [facility] Comment on above: Performed By: #### 4 [id number] #### [facility] [address] [place] [address] HCO3 (Bld) [Moles/Vol] 25.1 mmol/L Normal 22.0-26.0 [facility] Comment on above: Performed By: #### 4 [id number] #### [facility] [address] [place] [address] Hemoglobin (Bld) [Mass/Vol] 14.2 g/dL Normal 12.0-17.0 [facility] Comment on above: Performed By: #### 4 [id number] #### [facility] [address] [place] [address] Oxygen saturation in Blood 91.8 % Low 95.0-100.0 [facility] Comment on above: Performed By: #### 4 [id number] #### [facility] [address] [place] [address] P CO2 Arterial 41.4 mmHg Normal 35.0-45.0 [facility] Comment on above: Performed By: #### 4 [id number] #### [facility] [address] [place] [address] P O2 Arterial 58.4 mmHg Low 80.0-100.0 [facility] Comment on above: Performed By: #### 4 [id number] #### [facility] [address] [place] [address] pH Arterial 7.405 Normal 7.350-7.450 [facility] Comment on above: Performed By: #### 4 [id number] #### [facility] [address] [place] [address] Sample Site R Brachial Normal [facility] Comment on above: Performed By: #### 4 [id number] #### [facility] [address] [place] [address] Sample Type Arterial Draw Normal [facility] Comment on above: Performed By: #### 4 [id number] #### [facility] [address] [place] [address] Physician Orderon 12-06-2020 Physician Order [id number]:12 [id number] Normal [facility] Vital Signs Date Time Vital Sign Value Performing Clinician Facility 03-31-2025 10:28040 Body height 170.18 cm Nereida Reinoso APRN Work Phone: [facility] 03-31-2025 10:28-0400 Body mass index (BMI) [Ratio] 40.5 kg/m2 Nereida Reinoso YARD COUPLER Work Phone: [facility] 03-31-2025 10:040 Body temperature 97.5 [degF] Nereida Reinoso APRN Work Phone: [facility] 03-31-2025 10: Body weight 117.48 kg Nereida Reinoso YARD COUPLER Work Phone: [facility] 03-31-2025 10:040 Diastolic blood pressure 76 mm[Hg] Nereida Reinoso YARD COUPLER Work Phone: [facility] 03-31-2025 10:040 Heart rate 80 /min Nereida Pittsollie YARD COUPLER Work Phone: [facility] 03-31-2025 10:040 Inhaled oxygen flow rate 4 L/min Nereida Reinoso APRN Work Phone: [facility] 03-31-2025 10:040 SaO2% (BldA) [Mass fraction] 92 % Nereida Reinoso YARD COUPLER Work Phone: [facility] 03-31-2025 10:28040 Systolic blood pressure 138 mm[Hg] Nereida Pittsollie YARD COUPLER Work Phone: [facility] 12-16-2024 11:17040 Body height 170.2 cm Wendy Lowe PA Work Phone: [facility] 12-16-2024 11:17040 Body mass index (BMI) [Ratio] 39 kg/m2 Wendy Lowe PA Work Phone: [facility] 12-16-2024 11:17040 Body weight 112.95 kg Wendy Lowe PA Work Phone: [facility] 12-16-2024 11:17040 Diastolic blood pressure 78 mm[Hg] Wendy Lowe PA Work Phone: [facility] 12-16-2024 11:17-0400 Systolic blood pressure 118 mm[Hg] Wendy Lowe PA Work Phone: [facility] 07-01-2024 12:46-0500 Body height 170.2 cm Wendy Lowe PA Work Phone: [facility] 07-01-2024 12:46-0500 Body mass index (BMI) [Ratio] 37.43 kg/m2 Wendy Lowe PA Work Phone: [facility] 07-01-2024 12:46-0500 Body weight 108.41 kg Wendy Lowe PA Work Phone: [facility] 07-01-2024 12:46-0500 Diastolic blood pressure 80 mm[Hg] Wendy Lowe PA Work Phone: [facility] 07-01-2024 12:46-0500 Systolic blood pressure 138 mm[Hg] Wendy Lowe PA Work Phone: [facility] 05-04-2021 13:45-0400 Body height 170.1 cm Jeferson Woody Joseph Work Phone: [facility] Work Phone: 05-04-2021 13:45-0400 Body mass index (BMI) [Ratio] 39.23 kg/m2 Jeferson Woody Joseph Work Phone: [facility] Work Phone: 05-04-2021 13:45-0400 Body surface area Derived from formula 2.22 m2 Jeferson Woody [employer] Work Phone: YF-Wwrqxff-PzmzpzaA[facility] Work Phone: 05-04-2021 13:45-0400 Body temperature 97.7 [degF] Jeferson Glover Work Phone: UN-Wjvaqsx-[facility]vnuamt[facility] Work Phone: 05-04-2021 13:45-0400 Body weight 113.51 kg Jeferson P Samsa Work Phone: JK-Lwsckjn-QmqzxurA[facility] Work Phone: 05-04-2021 13:45-0400 Diastolic blood pressure 81 mm[Hg] Jeferson P Samsa Work Phone: [facility] Work Phone: 05-04-2021 13:45-0400 Heart rate 105 /min Jeferson P Guillesa Work Phone: KF-Bvbnvug-CkrvowkAled[facility] Work Phone: 05-04-2021 13:45-0400 Respiratory rate 16 /min Jefersonnayeli Hansa Work Phone: [facility] Work Phone: 05-04-2021 13:45-0400 SaO2% (BldA) [Mass fraction] 95 % Jefersonnayeli Hansa Work Phone: [facility] Work Phone: 05-04-2021 13:45-0400 Systolic blood pressure 153 mm[Hg] Jefersonnayeli Hansa Work Phone: [facility] Work Phone: 05-04-2021 13:45-0400 0 1 Jeferson Hansa Work Phone: [facility] Work Phone: Comment on above: [employer] 03-15-2021 06:50-0400 Body temperature 97.88 [degF] Jefersonnaeyli Hansa Other Phone: [facility] 03-15-2021 06:50-0400 Diastolic blood pressure 79 mm[Hg] Jeferson Samsa Other Phone: [facility] 03-15-2021 06:50-0400 Heart rate 98 /min Jefersonnayeli Hansa Other Phone: [facility] 03-15-2021 06:50-0400 Respiratory rate 18 /min Jeferson Hansa Other Phone: [facility] 03-15-2021 06:50-0400 SaO2% (BldA) [Mass fraction] 93 % Jefersonnayeli Hansa Other Phone: [facility] 03-15-2021 06:50-0400 Systolic blood pressure 151 mm[Hg] Jeferson Hansa Other Phone: [facility] 12-15-2020 14:25-0400 Body height 170.1 cm [...] Phone: 12-15-2020 14:25-0400 Heart rate 96 /min Jfeerson P Samsa Work Phone: [facility] Work Phone: 12-15-2020 14:25-0400 Respiratory rate 17 /min Jeferson P Samsa Work Phone: [facility] [...] % Jeferson P Samsa Work Phone: [facility] Work Phone: Encounters Encounter Date Encounter Type Care Provider Facility Start: 03-31-2025 End: 03-31-2025 ambulatory Nereida Reinoso APRN Work Phone: [facility] Work Phone: Start: 03-31-2025 End: 03-31-2025 Patient encounter procedure Nereida Reinoso YARD COUPLER ADVERTISING SPACE CLERK -[facility] Work Phone: Start: 03-26-2025 ambulatory [facility] Start: 02-26-2025 ambulatory NOREEN CEBALLOS [facility] Start: 02-17-2025 ambulatory [facility] Start: 01-06-2025 End: 01-06-2025 ambulatory [facility] Start: 12-16-2024 End: 12-16-2024 Bamboo flowsheet Wendy Lowe PA Work Phone: [facility] Start: 12-16-2024 End: 12-16-2024 Bamboo flowsheet Wendy Lowe PA Work Phone: [facility] Start: 12-16-2024 End: 12-16-2024 Office outpatient visit 25 minutes Wendy Lowe PA Work Phone: [facility] Comment on above: Tremor (Primary Dx) Start: 12-16-2024 End: 12-16-2024 ambulatory WENDY LOWE Not Available Start: 12-15-2024 ambulatory [facility] Start: 11-12-2024 End: [facility]12[facility]: 10-23-2024 ambulatory [facility] Start: 09-18-2024 ambulatory [facility] Start: 07-25-2024 ambulatory [facility] Start: 07-09-2024 ambulatory [facility] Start: 07-01-2024 End: 07-01-2024 ambulatory WENDY LOWE Not Available Start: 07-01-2024 End: 07-01-2024 Office outpatient visit 15 minutes Wendy Lowe PA Work Phone: [facility] [address] Comment on above: Tremor Start: 06-10-2024 ambulatory [facility] Start: 05-21-2024 ambulatory [facility] Start: 05-08-2024 End: 05-08-2024 ambulatory KAILEE VACA [facility] Start: 05-06-2024 ambulatory NOREEN NEELYB [facility] Start: 04-08-2024 ambulatory [facility] Start: 03-28-2024 End: 03-28-2024 ambulatory HECTORAB ANNE [facility] Start: 03-11-2024 End: 03-11-2024 ambulatory WENDY LOWE Not Available Start: 12-20-2023 End: 12-20-2023 ambulatory WENDY LOWE Not Available Start: 10-17-2023 Patient encounter procedure Nereida Reinoso APRN Work Phone: [facility] Start: 12-06-2022 End: 01-03-2023 ambulatory JEFERSON SAMSA [...] . Facility:[facility] Start: 02-07-2022 End: 02-28-2022 ambulatory JEFERSONNAYELI GLOVER . Facility: Start: 05-04-2021 FUV, Provider: Salinas Ruiz, Status: Pen, Time: 1:40 PM Jeferson P Samsa Work Phone: [facility] Work Phone: Start: 05-04-2021 Office outpatient vi sit 25 minutes Jeferson P Samsa Work Phone: [facility] Work Phone: Start: 05-04-2021 Patient encounter procedure Jeferson P Samsa Work Phone: [facility] Work Phone: Start: 05-04-2021 PST, Provider: RALPH HARVEY FLR PFT [facility],PULM, Status: Pen, Time: 10:45 AM Jeferson P Samsa Work Phone: [facility] Work Phone: Start: 05-04-2021 Patient encounter procedure Jeferson P Samsa Work Phone: [facility] [place] [facility] Work Phone: Start: 05-04-2021 PFT, Provider: RALPH HARVEY FLR PFT RM1,PULM, Status: Pen, Time: 8:45 AM Jeferson P Samsa Work Phone: [facility] Work Phone: Start: 05-03-2021 AUDIT Jeferson P Samsa Work Phone: [facility] Work Phone: Start: 03-11-2021 End: 03-15-2021 Evaluation and management of inpatient Daryl Abeljanrebeka [facility] [address] Start: 03-04-2021 AUDIT Jeferson P Samsa Work Phone: [facility] Work Phone: Start: 02-09-2021 AUDIT Jeferson Glover Work Phone: [facility] Work Phone: Start: 12-15-2020 Office consultation new/estab patient 80 min Jeferson Glover Work Phone: [facility] Work Phone: Patient encounter status Jeferson Glover Work Phone: [facility] Work Phone: Procedures Date Procedure Procedure Detail Performing Clinician Start: 12-15-2020 Follow-up visit H/O: surgery History of lung surgery Radha Reinoso APRN Work Phone: Comment on above: [place] Plan of Treatment Date Care Activity Detail Author Start: 04-28-2025 End: 04-28-2025 Patient encounter procedure 04/28/2025 11:00 AM EDT Office Visit [facility] [address] [place] [address] Wendy Caballero NP [address] [place], [place] [facility] Start: 04-06-2025 Influenza vaccination Influenz a Vaccine (Season Ended) [facility] Start: 12-16-2024 End: 12-16-2024 Patient encounter procedure [facility] [address] Comment on above: Arrived Start: 04-06-2024 Influenza vaccination Influenza Vacc ine (#1) [facility] Start: 09-29-2022 Pneumococcal Vaccine : 65+ Years (2 of 2 - PPSV23 or PCV20) Pneumococcal Vaccine: 65+ Years (2 of 2 - PPSV23 or PCV20) [facility] Start: 09-29-2022 Pneumococcal Vaccine : 65+ Years (2 of 2 - PPSV23) Pneumococcal Vaccine: 65+ Years (2 of 2 - PPSV23) [facility] Start: 03-18-2021 Patient encounter procedure [facility] Preadmit [...] last dose was 8/3, next dose 03/15 [facility] Comment on above: Weekly on l ast dose was 8/, next dose 03/15 Start: 03-11-2021 End: 03-12-2022 Albuterol 2.5 mg/ 3 mL Nebulizer Soln ; (PROVENTIL)DOSE = 3 mL Inhalation Every 4 Hours via Nebulizer, PRN Shortness of BreathClinician Notes: home regimen Start: 11-Mar-2021 End: 11-Mar-2022 Ordered: 11-Mar-2021 Max Champion Intent Comments: home regimen [facility] Comment on above: home regimen Start: 1955 Screening for malignant neoplasm of colon [facility] Immunizations Immunization Date Immunization Notes Care Provider Renee harrell 09-29-2021 pneumococcal conjuga te vaccine, 13 valent Wendy CARRANZA Work Phone: [facility] 11-16-2020 Pfizer-BioNTech COVID-19 Vacc 30 MCG/0.3ML Intramuscular Suspension Jeferson P [employer] Work Phone: [facility] Work Phone: 10-25-2020 Pfizer-BioNTech COVID-19 Vacc 30 MCG/0.3ML Intramuscular Suspension Jeferson P [employer] Work Phone: [facility] Work Phone: 04-07-2020 pneumococcal conjuga te vaccine, 13 valent Jeferson P Samsa Work Phone: [facility] Work Phone: Payers Date Payer Category Payer Private Health Insurance AEBASIM roche [id number] 2023 Private Health Insurance [facility] [id number] 2019 Medicare MEDICARE [id number] 2019 Unknown 1959 Medicare [id number] 1959 Private Health Insurance [facility] [id number] 1954 Unknown [id number] 2..840.1.856554.3.579. 2.59 1954 Unknown [id number] 2.16840.1.910245.3.579. 2.59 1954 Unknown [id number] 2.16.840.1.781778.3.579. 2.59 1954 Unknown [id number] 2.16.840.1.049936.3.579. 2.59 1954 Unknown [id number] 2.16.840.1.135366.3.579. 2.593 1954 Unknown [id number] 2.16.840.1.662253.3.579. 2.593 1954 Unknown [id number] 2.16.840.1.857530.3.579. 2.593 1954 Unknown [id number] 2.16.840.1.489357.3.579. 2.593 1954 Unknown [id number] 2.16.840.1.010128.3.579. 2.593 1954 Unknown [id number] 2.16.840.1.899487.3.579. 2.593 1954 Unknown [id number] 2.16.840.1.290479.3.579. 2.593 1954 Unknown [id number] 2.16.840.1.289141.3.579. 2.593 1954 Unknown [id number] 2.16.840.1.101258.3.579. 2.593 1954 Unknown [id number] 2.16.840.1.439459.3.579. 2.1259 1954 Unknown [id number] 2.16.840.1.182315.3.579. 2.1259 1954 Unknown [id number] 2.16.840.1.426734.3.579. 2.1259 1954 Unknown [id number] 2.16.840.1.115275.3.579. 2.1259 Unknown [facility] [id number] Social History Date Type Detail Facility Start: 12-20-2023 Former smoker Former sm[facility] Work Phone: Tobacco smoking consumption unknown [facility] Start: 12-20-2023 [facility] History of tobacco use Cigarette Smoker [facility] Start: 03-11-2024 Alcoholic beverage intake Lifetime non-drinker (finding) [facility] Start: 12-20-2023 Tobacco use panel [facility] Start: 1955 Sex assigned at Not on file [facility] Start: 10-17-2023 Tobacco smoking stat us [facility] Ex-smoker (finding) [facility] Sex Male (finding) [facility] Start: 1955 Sex Assigned At Male [facility] Functional Status Date Assessment Result Facility Functional observable [facility] Mental Status Date Assessment Result Facility 03-11-2021 Cognitive functions 11-Mar-20 2120:20 [facility] Clinical Notes 12-15-2020 to 01-06-2025 TERE Lubin - 12/16/2024 11:20 AM EDT<item><item><item><item> Note Date & Type Note Facility 01-06-2025 Note [facility] Consult Note Reason for visit: Tachycardia 01/06/25 Patient underwent a cardiac catheter previous positive stress test which revealed moderate CAD with medical management suggested by Dr. CHINCHILLA. No right heart cath was performed at that time Loop monitor does reveal presence of tachycardia seen in September 2024 as well as in April, June and July. The episode in July is more convincing of A-fib compared to the one in September. As per the patient he was taken off anticoagulation although there is no records to support this. Review of Systems Constitutional: Negative. 03/18/24 Patient had a visit with pulmonary [...] for COPD was recently seen in the [place] ED and noted to be in tachycardia. [...] and couplet was noted on 11/10/2023 PMH: Past Medical History: Diagnosis Date COPD (chronic obstructive pulmonary disease) ([facility]) PSH: Past Surgical History: Procedure Laterality Date CARDIAC CATHETERIZATION CHOLECYSTECTOMY 2010 PULMONARY VALVE REPLACEMENT SKIN CANCER EXCISION SH: Social Determinants of Health Tobacco Use: Medium Risk (01/06/2025) Patient History Smoking Tobacco Use: Former Smokeless [...] Not on file Utilities: Not on file Health Literacy: Not on file Allergies: Allergies Allergen Reactions Cephalexin Unknown Weight: 112kg Visit Vitals BP 150/79 (BP Location: Right arm, Patient Position: Sitting) Pulse 74 Ht 1.702 m (5' 7 ) Wt 112 kg (248 lb) SpO2 94% BMI 38.84 kg/m??? Smoking Status Former BSA 2.3 m??? Meds: Current Outpatient Medications on File Prior to Visit Medication Sig Dispense Refill albuterol 90 mcg/actuation inhaler INHALE 2 PUFFS BY MOUTH EVERY 4 HOURS NEEDED SHORTNESS OF BREATH Inhalation for 50 Days alpha1-proteinase inhibitor (Prolastin-C) infusion Infuse 60 mg/kg into a venous catheter 1 (one) time per week. On Sun at [place] aspirin 81 mg EC tablet Take 81 mg by mouth in the morning. tubvyaxyxmr-jjdrczkld-dokpgjbc (Trelegy Ellipta) 100-62.5-25 mcg blister with device Inhalation for 30 Days metoprolol tartrate (Lopressor) 50 mg tablet Take 1 tablet (50 mg) by mouth two times daily. 180 tablet 3 primidone (Mysoline) 50 mg tablet 1 (one) time each day at the same time. topiramate (Topamax) 25 mg tablet Take 50 mg by mouth in the morning and at bedtime. vitamin E, dl,tocopheryl acet, (vitamin E, dl, acetate,) 180 mg (400 unit) capsule Take 400 Units by mouth in the morning. apixaban (Eliquis) 5 mg tablet Take 1 tablet (5 mg) by mouth in the morning and at bedtime. (Patient not taking: Reported on 01/06/2025) 60 tablet 11 atorvastatin (Lipitor) 40 mg tablet Take 1 tablet (40 mg) by mouth in the morning. (Patient not taking: Reported on 11/12/2024) 90 tablet 3 primidone (Mysoline) 250 mg tablet every 12 (twelve) hours. No current facility-administered medications on file prior to visit. Physical Exam: Constitutional G (more content not included)... [facility] 12-16-2024 History of Present illness Narrative Images from the original note were not included. Tomasz Coley is a 69 y.o. year old male No chief complaint on file. Past Medical History: Diagnosis Date Tremor Past Surgical History: Procedure Laterality Date CHOLECYSTECTOMY LASIK NASAL SEPTUM SURGERY No family history on file. Social History Tobacco Use Smoking status: Every Day Types: Cigarettes Smokeless tobacco: Not on file Substance Use Topics Alcohol use: Never Medication Documentation Review Audit Reviewed by Wil Hernandez MA (Language Instructor) on 12/16/24 at 1123 Medication Order Taking? Sig Documenting Provider Last Dose Status albuterol HFA 90 mcg/act inhaler [id number] Yes Inhale 2 puffs every 4 (four) hours if needed for wheezing TERE Lubin Active apixaban (Eliquis) 2.5 MG tablet [id number] Yes Take 2.5 mg by mouth in the morning and 2.5 mg before bedtime. TERE Lubin Active aspirin 81 MG EC tablet [id number] Yes Take 81 mg by mouth Daily TERE Lubin Active metoprolol tartrate (Lopressor) 50 MG tablet [id number] Yes Take 50 mg by mouth in the morning and 50 mg before bedtime. TERE Lubin Active multivitamin with minerals (Cerovite) 18-400 mg-mcg tablet tablet [id number] Yes Take 1 tablet by mouth Daily TERE Lubin Active primidone (Mysoline) 50 MG tablet [id number] 2 po qam, 1 po afternoon, 2 po evening for 2 weeks, then 1 po tid. Patient not taking: Reported on 12/16/2024 Bettina Bender, REVIEW ANALYST 02/07/24 4198 topiramate 50 MG tablet [id number] Yes Take 50 mg by mouth in the morning and 50 mg before bedtime. 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 Respiratory: Negative for apnea, cough, choking, chest tightness, shortness of breath, wheezing and stridor. Cardiovascular: Negative for chest pain, palpitations and leg swelling. Gastrointestinal: Negative for abdominal distention, abdominal pain, anal bleeding, blood in stool, constipation, diarrhea, nausea, rectal pain and vomiting. Musculoskeletal: Negative for arthralgias, back pain, gait problem, joint swelling, myalgias, neck pain and neck stiffness. Neurological: Positive for tremors. Negative for dizziness, seizures, syncope, facial asymmetry, speech difficulty, weakness, light-headedness, numbness and headaches. Objective Visit Vitals BP 118/78 Ht 5' 7 Wt 249 lb BMI 39.00 kg/m Smoking Status Every Day BSA 2.31 m Neurological Exam Mental Status Awake, alert and oriented to person, place and time. Oriented to person, place and time. Recent and remote memory are intact. Speech is normal. Language is fluent with no aphasia. Cranial Nerves CN III, IV, : Normal lids and orbits bilaterally. Pupils equal round and reactive to light bilaterally. CN VII: Full and symmetric facial movement. CN VIII: Hearing is normal. CN XI: Shoulder shrug strength is normal. Sensory Light touch is normal in upper and lower extremities. Gait Normal casual, toe, heel and tandem gait. Motor Examination RUE Strength deltoid, biceps, triceps, wrist extensors, wrist extensors, wrist flexor, web content producer strength 5/5. LUE Strength deltoid, biceps, triceps, wrist extensors, wrist extensors, wrist flexor, web content producer strength 5/5. RLE Strength illopsoas, quadriceps, tibialis anterior, and gastrocnemius strength 5/5. LLE Strength illopsoas, quadriceps, tibialis anterior, and gastrocnemius strength 5/5. Tone Normal tone x4 extremities. Reflexes: RUE biceps reflex 2, LUE biceps reflex 2, RLE knee reflex 1, LLE knee reflex 1, Assessment and Plan Diagnoses and all orders for this visit: Tremor - topiramate 50 MG tablet; Take 50 mg by mouth in the morning and 50 mg before bedtime. Patient with history of essential tremor. This is treated with Primidone and remains stable. He has increase when holding a plate to put into the microwave or using a screw transit driver. Labwork 08/2020 revealed normal LFTs and therapeutic primidone level. We will avoid propranolol due to his lung condition as well as gabapentin due to potential of respiratory depression. He has responded well to Topamax but has recently been started on Eliquis for possible atrial flutter. Labwork 10/10/23 revealed normal LFTs. He has gradually weaned off primidone due to Eliquis treatment and notes that he is overall stable from a tremor standpoint. Topamax has provided some benefit in place of primidone. He does note that he has a loop recorder and Eliquis was stopped recently. He would like to retry primidone. Plan: He would like to resume the primidone as he is off the Eliquis. If anticoagulation is needed again (he has loop recorder), he will again stop this. Start primidone 50mg PO daily for tremor. I counseled the patient on the side effects of medications. Continue Topamax 50mg PO BID for tremor. 5. I counseled the patient on fall precautions. I discussed the high risk of trauma and debility associated with falls. Patient verbalized understanding. Follow up 4-6 months documented in this encounter [facility] 11-12-2024 Note [facility] Cardiology Clinic Note Chief Complaint: Patient is here for 6 month follow up. Patient had a chest CT done on 05/13/[address] Glover. Patient has loop monitor. Per patient he is not taking Lipior, he doesn't want to due to side effects. HPI: Brock Coley is a 69 y.o. male with past medical history of alpha antitrypsin deficiency, COPD, emphysema, history of cholecystectomy who sees Dr. Glover for COPD. HPI: Brock Coley is a 69 y.o. year old with past medical history of alpha antitrypsin deficiency, COPD, emphysema, history of cholecystectomy who sees Dr. Kwan for COPD was recently seen in the [place] ED and noted to be in tachycardia. [...] PVC and couplet was noted on 11/10/2023 Review of Systems Constitutional: Negative. Past Medical History He has no past medical history on file. Surgical History He has a past surgical history that includes Cholecystectomy (2009); Pulmonary valve replacement; and Skin cancer excision. Social History He reports that he has quit smoking. His smoking use included cigarettes. He has never used smokeless tobacco. He reports that he does not drink alcohol. No history on file for drug use. Family History Family History Problem Relation Name Age of Onset No Known Problems Mother No Known Problems Father Allergies Cephalexin Medications Current Outpatient Medications: albuterol 90 mcg/actuation inhaler, INHALE 2 PUFFS BY MOUTH EVERY 4 HOURS NEEDED SHORTNESS OF BREATH Inhalation for 50 Days, Disp: , Rfl: alpha1-proteinase inhibitor (Prolastin-C) infusion, Infuse 60 mg/kg into a venous catheter 1 (one) time per week. On Sun at [place], Disp: , Rfl: apixaban (Eliquis) 5 mg tablet, Take 1 tablet (5 mg) by mouth in the morning and at bedtime., Disp: 60 tablet, Rfl: 11 atorvastatin (Lipitor) 40 mg tablet, Take 1 tablet (40 mg) by mouth in the morning., Disp: 90 tablet, Rfl: 3 spguhbeeebk-qgaysnzcd-fnssmwyj (Trelegy Ellipta) 100-62.5-25 mcg blister with device, Inhalation for 30 Days, Disp: , Rfl: metoprolol tartrate (Lopressor) 50 mg tablet, Take 1 tablet (50 mg) by mouth two times daily., Disp: 180 tablet, Rfl: 3 primidone (Mysoline) 250 mg tablet, every 12 (twelve) hours., Disp: , Rfl: primidone (Mysoline) 50 mg tablet, 1 (one) time each day at the same time., Disp: , Rfl: topiramate (Topamax) 25 mg tablet, Take 50 mg by mouth in the morning and at bedtime., Disp: , Rfl: vitamin E, dl,tocopheryl acet, (vitamin E, dl, acetate,) 180 mg (400 unit) capsule, Take 400 Units by mouth in the morning., Disp: , Rfl: Last Recorded Vitals BP 139/78 (BP Location: Right arm, Patient Position: Sitting) Pulse 67 Ht 1.702 m (5' 7 ) Wt 112 kg (246 lb) SpO2 95% BMI 38.53 kg/m??? Physical Examination: GENERAL: alert and oriented x3, well developed, in no acute distress. HEAD: atraumatic, normocephalic. EYES: ROYA, EOMI. NECK: trachea midline, no JVD present, no carotid bruits present. CARDIAC: S1, S2 present. RRR. No murmur, rubs, or gallops. RESPIRATORY: CTAB, no increased effort of breathing, no rales, rhonchi, or wheezing. ABDOMEN: soft, nontender, nondistended. EXTREMITIES: no lower extremity edema, peripheral pulses are 2+ bilaterally. No rash/skin discoloration present. NEURO: strength/sensation equal and symmetric in bilateral upper and lower extremities. PSYCH: appropriate mood, affect, and judgement. Labs: 03/05/24 CBC normal NA 139, K+ 4.2, BUN 14, Cr 0.95, GFR > 60- normal Last lab values have been reviewed CV Testin05/06/24 ILR report-reviewed with patient no A-fib burden noted PRESENTING RHYTHM NSR at 63 bpm BATTERY RAJINDER: Above 10% Charge Remaining ARRHYTHMIAS 0 TACHY 0 AF 0 SYMPTOM AF BURDEN 0% 03/28/24 Conclusion Cardiovascular Laboratory Report FINAL IMPRESSIONS: Moderate, diffuse, mid to distal disease of the left anterior descending coronary artery Mild disease of t (more content not included)... [facility] 05-08-2024 Note Review of ILR report shows no A-fib burden Return to clinic in 2 to [address] Rao for further recommendations and evaluation if there is any recurrent A-fib and whether he needs to stay on anticoagulation [facility] 05-08-2024 Note Hypertension is well -controlled 130/78 today continue metoprolol [facility] 05-08-2024 Note Coronary artery dise ase is [...] exercise is limited from his pulmonary status [facility] 05-08-2024 Note Pt is here for follo w up after a cath. Pt denies any chest pain, palpatations, and dizziness. Review of Systems Cardiovascular: Positive for dyspnea on exertion. Respiratory: Positive for shortness of breath. All other systems reviewed and are negative. [facility] 05-08-2024 Note [facility] CARDIOLOGY PROGR ESS NOTE HPI: Brock Coley is a 69 y.o. male here for F/U post heart cath HPI 69 year old with past medical history of alpha antitrypsin deficiency, COPD, emphysema, history of cholecystectomy who sees Dr. Glover for COPD. Remains on oxygen 26/02 chronically. Admits to typical shortness of breath, [...] for COPD was recently seen in the [place] ED and noted to be in tachycardia. [...] (one) time per week. On Sun at [place] apixaban (Eliquis) 5 mg tablet Take 1 tablet (5 mg) by mouth in the morning and at bedtime. 60 tablet 11 duqlnctsmjs-ediagzpvh-rwjtidje (Trelegy Ellipta) 100-62.5-25 mcg blister with device [...] normal NA 139, (more content not included)... [facility] 05-04-2021 History of Present illness Narrative May [...] family history of lung diseases or cancer [facility] Work Phone: 05-04-2021 History of Present [...] / Nebulized medications / Oxygen:TrelegyAlbuterolOxygenImmun izations:InfluenzaCOVID-19 - 11/16/Pneumovax - April 2020PrevnarSocial History:Tobacco: Former smoker - [...] normal valves, RVSP17 mmHgFamily History:+COPD+Leukemia+gastric cancer [facility] Work Phone: 05-04-2021 History of Present [...] Kearns MD Samsa, Nathan P, DO - [id number] [] Miriam Marks MD Young, Benjamin, MD Discharge: Summary: Admission Date: .11-Mar-2021 14:26:00 Discharge Date: 15-Mar-2021 Attending Physician at Discharge: Daryl Kearns Admission Reason: Pneumonia Final Discharge Diagnoses: Pneumonia Procedures: none Condition at Discharge: Satisfactory Disposition at Discharge: .Home Vital Signs: T PRBPSpO2 Value36.06119133/7993% Date/Time03/15 4:508/10 4:508/10 4:508/10 4:508/10 4:50 Range(36.6C - 37C ) (92 - 98 ) (18 - 18 ) (122 - 151 )/ (74 - 79 ) (93% - 95% ) As of 15-Mar-2021 08:19:00, patient is on 4 L/min of oxygen via nasal cannula. Highest temp of 37 C was recorded at 03/14 22:14 Date: Weight/Scale Type:Height: 11-Mar-2021 17:24223.3 kg / lqf920.1 cm Hospital Course: Mr. Brock Coley is a 66 year old Male with jxeii-8-sszmluhtbv deficiency (on weekly Prolastin-C, 1000mg IV every [...] Care Physician Scheduled Date/Time: 06-Apr-2021 09:00 Location: [address] [place] [address] Follow-Up Appointment 02: Physician/Dept/Service: Local Research Biostatistician Reason for Referral: COPD Call to Schedule in: 1 week Location: [facility] Discharge Medications: Home Medication Prolastin-C intravenous [...] will follow up with PCP and local banquet lead to document resolution of pneumonia with CXR [...] the note. I personally evaluated the patient [id number] Comments/ Additional Findings Greater than 30 minutes was spent planning and arranging for discharge Electronic Signatures: Franki Palacios (Resident)) (Signed 15-Mar-2021 17:30) Authored: Send Summary, Note Completion Daryl Kearns) (Signed 29-Mar-2021 12:40) Authored: Ongoing Care, Note Completion Co-Signer: Send Summary (more content not included)... [facility] 03-15-2021 Hospital Discharge instructions Oxygen:Administer oxygen at 4 via to maintain SpO2 % of.Follow Up Appointment 1:Physician/Dept/Service: Dr. Viraj Maloney Primary Care PhysicianScheduled Date/Time: 06-Apr-2021 09:00Location: [address] [place], [place] [address]Phone Number: [phone]: Please arrive 10-15 minutes early, bring photo ID, insurance cards, discharge summary, and a list of current medications. Please call the office if you need to change this appointment.Follow Up Appointment 2:Physician/Dept/Service: Local PulmonologistReason for Referral: COPDLocation: Erika TOMLIN [facility] 03-11-2021 Note History of Present I llness: HPI: Mr. Brock Coley is a 66 year old Male with tdydk-9-ynkprpyobk deficiency (on weekly Prolastin-C, 1000mg IV every [...] Easy Bleeding Objective: Objective Information: T PRBPSpO2 Value36.08546720/7494% Date/Time03/11 15: 15: 15: 15: 15:12 Range(36.3C [...] Lab Results: Results: (more content not included)... [facility] 03-03-2021 Note Send Summary: Discharge Summary Providers: Provider RoleProvider Name ReferringJeferson Glover ConsultingPulmonary Consult ConsultingBrandon Eisenberg Nurse PractitionerMerit Health BiloxiGurinder dumont Nathan P AttendingGifford, Alex Note Recipients: Jeferson Glover, - [phone] [] Brandon Eisenberg MD Young, Benjamin, MD Discharge: Summary: Admission Date: .28-Feb-2021 17:00:00 Discharge Date: 03-Mar-2021 Attending Physician at Discharge: Thang Lorenzo Admission Reason: endobronchial valve placement(1) Final Discharge Diagnoses: endobronchial valve placement Procedures: Bronchoscopy Condition at Discharge: Satisfactory Disposition at Discharge: .Home Vital Signs: T PRBPSpO2 Value36.18470746/8093% Date/Time03/03 5: 5: 5: 5:007 5:00 Range(36.1C - 37.5C ) (76 - 95 ) (16 - 18 ) (124 - 142 )/ (77 - 84 ) (93% - 96% ) As of 03-Mar-2021 05:00:00, patient is on 4 L/min of oxygen via nasal cannula. Highest temp of 37.5 C was recorded at 03/02 21:43 Date: Weight/Scale Type:Height: 03-Mar-2021 05:55617 kg / standing Physical Exam: Constitutional: Well [...] the note. I personally evaluated the patient [id number] Comments/ Additional Findings Uneventful course following placement [...] From Consult-Thoracic and Esophageal Surgery 28-Feb-2021 18:32 [facility] 02-28-2021 Note History of Present I [...] ~17 mmHg SURGICAL HX: Cholecystectomy 2009 at [facility] FAMILY HX: Multiple members- COPD, [...] Mass, Pain Objective: Objective Information: T PRBPSpO2 Value36.10431978/7698% Date/Time02/28 18: 18: 18: 18: 18: Range(35.7C [...] HDS on h (more content not included)... [facility] 12-15-2020 History of Present illness Narrative December 15, 2020Mr. Cloey is a 65 year old male former [...] Visit: Emphysema, BLVR evaluation.Appointment requested by: Dr. Glover. [employer] [facility] Phone: Evaluation note Skin: Warm and dry, [...] awake/alert/oriented x3, no distress, alert and cooperative [facility] Evaluation note Diagnosis Tremor Abnormal involuntary movements documented in this encounter [facility] HealthcareEvaluation note* Diagnosis Tremor- Primary Abnormal involuntary movements documented in this encounter [facility] HealthcareEvaluation note* Diagnosis Onset Date Resolution Status Admit Date Centrilobular emphysema acute A ugust 2024 10:22am COPD exacerbation acute Tull 2024 10:22am [facility] Work Phone: Reason for referral (narrative)No reason for referral information availableLakehealth [facility]point Medical Center Work Phone: Summary Purpose Family History Unknown Family Member Name Dates Details Family [...] stomach: Paternal Uncle(V16.0, Z80.0) Status:Active Advance Directives Advance Directive Response Recorded Date/ Time Advance Directives No October 14, 2 024 3:50pm Chief Complaint * BROCK COLEY is here for a follow-up visit. * Reason for Visit: Emphysema, s/p BLVR. * BROCK COLEY is here for a follow-up visit. * Reason for Visit: Emphysema, s/p BLVR. * BROCK COLEY is here for a follow-up visit. * Reason for Visit: Emphysema, s/p BLVR. Chief Complaint and Reason for Visit Chief Complaint Admit Date wheezing March 31, 2025 10 :22am Reason for Visit Admit Date Centrilobular emphysema March 31 10:22am COPD exacerbation March 31, 2025 10 :22am Additional Source Comments (unrecognized sect ion and content) No Status Records FoundNo Status Records FoundNo Status Records FoundNo Status Records FoundNo Status Records FoundNo Status Records Found INFORMATION SOURCE (unrecogn ized section and content) DATE CREATED AUTHOR [facility]07/2020 [facility] DATE CREATED AUTHOR AUTHOR'S ORGANIZ ATION 05/20/2021 [facility] DATE CREATED AUTHOR AUTHOR'S ORGANIZ ATION 11/04/2021 [facility] DATE CREATED AUTHOR AUTHOR'S ORGANIZ ATION 01/12/2023 [facility] DATE CREATED AUTHOR AUTHOR'S ORGANIZ ATION 12/17/2024 [facility] EPIC DATE CREATED AUTHOR AUTHOR'S ORGANIZ ATION 03/28/2025 [facility] <item> Privacy Markings (unrecogniz ed section and content) Section Author: Char Mcdonald PROHIBITION ON REDISCLOSURE OF CONFIDENTIAL INFORMATION This notice accompanies a disclosure of information concerning a client made to you with the consent of such client. Reason for Visit (unrecogniz ed section and content) Reason Comments Tremors Care Teams (unrecognized sec tion and content) Manager Office Relationship Specialty Start Date End Date Nereida Reinoso NP [address] [place] [address] Referring Physician Family Medicine 12/20/23 Manager Office Relationship Specialty Start Date End Date Nereida Reinoso NP [address] [place] [address] Referring Physician Family Medicine 12/20/23 Manager Office Relationship Specialty Start Date End Date Nereida Reinoso NP [address] [place] [address] Referring Physician Family Medicine 12/20/23 Team Status: Active Member Role Status Dates Wendy Stroud PA-C Specialist Active NELIDA [place] Specialist Active Jeferson LAY DO Specialist Active Aníbal Rao MD Specialist Active DANA Zheng Primary Care Provider Active Team Status: Inactive Member Role Status Dates Nereida Reinoso APRN NP-Libby Primary Care Provider Active Start: March 31, 2025 End: March 31, 2025 DANA Zheng Attending Provider Act xochitl Start: March 31, 2025 End: March 31, 2025 Goals (unrecognized section and content) Goals may be documented in a n alternate section FOR RECORDS PERTAINING TO PATIENTS WHO ARE [...] BE BASED ON THE PRIMARY CLINICAL RECORDS. [facility]. provides no warranty or guarantee of the accuracy or completeness of information in this document.
== END 2025-04-02 12:19 | disposition home or self-care (01) ==
LOC: RAD 12:20
PROVIDERS: PCP Nurse Practitioner Family; Visit Provider Nurse Practitioner Family
DX: J44.1 Chronic obstructive pulmonary disease with (acute) exacerbation (principal)
CPT/HCPCS: 71046

== ENCOUNTER 2025-04-29 12:54 | Outpatient (RCR) | payer MEDICARE, SELFPAY ==
[2025-04-08 13:00] VITALS: BP 170/95; PULSE 78; TEMP 35.9; O2SAT 94
[2025-04-08] MEDS: ALPHA IV (13:27)
[2025-04-08] MEDS: PROTEINASE INHIBITOR IV (13:27)
[2025-04-15 13:09] VITALS: BP 150/87; PULSE 90; TEMP 35.8; O2SAT 97
[2025-04-15] MEDS: ALPHA IV (13:26)
[2025-04-15] MEDS: PROTEINASE INHIBITOR IV (13:26)
[2025-04-22 13:01] VITALS: BP 172/89; PULSE 76; TEMP 36.6; O2SAT 91
[2025-04-22] MEDS: PROTEINASE INHIBITOR IV (13:34)
[2025-04-22] MEDS: ALPHA IV (13:34)
[2025-04-22 14:00] VITALS: PULSE 65; TEMP 36.3; O2SAT 99
[2025-04-29 12:58] VITALS: BP 165/89; PULSE 78; TEMP 36.6; O2SAT 92
[2025-04-29] MEDS: PROTEINASE INHIBITOR IV (13:23)
[2025-04-29] MEDS: ALPHA IV (13:23)
== END 2025-05-05 23:59 | disposition home or self-care (01) ==
LOC: INF 12:54
PROVIDERS: PCP Nurse Practitioner Family; Visit Provider Internal Medicine
DX: E88.01 Alpha-1-antitrypsin deficiency (principal); J43.2 Centrilobular emphysema
CPT/HCPCS: 96365; J0256

== ENCOUNTER 2025-06-03 12:46 | Outpatient (RCR) | payer MEDICARE, SELFPAY ==
[2025-05-06 13:04] VITALS: BP 154/83; PULSE 75; TEMP 36.6; O2SAT 95
[2025-05-06] MEDS: ALPHA-1-PROTEINASE INHIBITOR 6,522 MG in EMPTY BAG 0 ML 260.88 MG IV (13:25)
[2025-05-13 12:58] VITALS: BP 131/67; PULSE 82; TEMP 36.3; O2SAT 94
[2025-05-13] MEDS: ALPHA-1-PROTEINASE INHIBITOR 6,522 MG in EMPTY BAG 0 ML 240 MG IV (13:25)
[2025-05-20 12:59] VITALS: BP 136/68; PULSE 73; TEMP 36.6; O2SAT 91
[2025-05-20] MEDS: ALPHA-1-PROTEINASE INHIBITOR 6,522 MG in EMPTY BAG 0 ML 260.88 MG IV (13:28)
[2025-05-27 12:58] VITALS: BP 172/75; PULSE 83; TEMP 36.2; O2SAT 92
[2025-05-27] MEDS: ALPHA-1-PROTEINASE INHIBITOR 6,522 MG in EMPTY BAG 0 ML 240 MG IV (13:26)
[2025-06-03 12:48] VITALS: BP 145/75; PULSE 75; TEMP 36.4; O2SAT 95
[2025-06-03] MEDS: ALPHA-1-PROTEINASE INHIBITOR 6,522 MG in EMPTY BAG 0 ML 240 MG IV (13:12)
== END 2025-06-05 23:59 | disposition home or self-care (01) ==
LOC: INF 12:46
PROVIDERS: PCP Nurse Practitioner Family; Visit Provider Internal Medicine
DX: E88.01 Alpha-1-antitrypsin deficiency (principal); J43.2 Centrilobular emphysema
CPT/HCPCS: 96365; J0256

== ENCOUNTER 2025-07-01 12:52 | Outpatient (RCR) | payer MEDICARE, SELFPAY ==
[2025-06-10 13:01] VITALS: BP 148/83; PULSE 70; TEMP 37.1; O2SAT 96
[2025-06-10] MEDS: ALPHA-1-PROTEINASE INHIBITOR 6,522 MG in EMPTY BAG 0 ML 240 MG IV (13:11)
[2025-06-17 12:52] VITALS: BP 157/84; PULSE 78; TEMP 35.8; O2SAT 93
--- NOTE | 2025-06-17 13:04 | PC.NURSE ---
1255 pt arrives ambulatory with oxygen at 4 lpm nc via portable tank, switched to wall oxygen at 4 lpm
[2025-06-24 13:07] VITALS: BP 154/88; PULSE 91; TEMP 36.9; O2SAT 92
[2025-07-01 12:55] VITALS: BP 169/79; PULSE 68; TEMP 36.3; O2SAT 92
== END 2025-07-05 23:59 | disposition home or self-care (01) ==
LOC: INF 12:52
PROVIDERS: PCP Nurse Practitioner Family; Visit Provider Internal Medicine
DX: E88.01 Alpha-1-antitrypsin deficiency (principal); J43.9 Emphysema, unspecified
CPT/HCPCS: 96365; J0256

== ENCOUNTER 2025-07-15 14:11 | Inpatient (IN) | payer MEDICARE, SELFPAY ==
[2025-07-15] VITALS (33 sets, daily range): BP systolic 128–163; BP diastolic 77–103; PULSE 81–152; TEMP 36.5–36.6; O2SAT 88–94; BMI 40.1; BMI 39.4
--- NOTE | 2025-07-15 14:28 | ECG_ITS ---
The [facility] Test Date: 2025-07-15 Pat Name: STACEY COLEY Department: Room: - Gender: Male Isotope Technologist: : 1955 Requested By: [id number] Order Number: [id number] Reading MD: DEBI HATFIELD M.D. Measurements Intervals [place] Rate: 97 P: 64 MT: 156 QRS: 75 QRSD: 90 T: 71 QT: 338 QTc: 392 Interpretive Statements 1100 Sinus rhythm 9110 normal ECG Compared to ECG 10/03/2023 13:57:47 ST (T wave) deviation no longer present Supraventricular premature complexes no longer present Electronically Signed On 07-15-2025 16:13:30 EST by DEBI HATFIELD M.D.
--- NOTE | 2025-07-15 14:28 | XR_ITS ---
The [address] [address] Patient Name: STACEY COLEY MRN: [id number] date: 1955 Sex: M Assigned Patient Location: ER Current Patient Location: ER Accession/Order Number: [id number] Exam Date: 07/15/2025 14:40 Report Date: 07/15/2025 15:29 At the request of: CHARITY WELLINGTON Procedure: XR chest 1V XR chest 1V 07/15/2025 2:45 PM SIGNS AND SYMPTOMS: ^SOB PROTOCOL: Frontal radiograph of the chest COMPARISON: 04/02/2025 FINDINGS: The trachea is midline. Atherosclerotic changes are noted in the thoracic aorta. There is an implantable cardiac monitoring device over the left anterior chest wall. There is cardiomegaly. Interstitial prominence is noted with perihilar vascular prominence and perihilar airspace opacities. The bony thorax is intact. XR/XR chest 1V IMPRESSION: Findings suggest congestive heart failure with pulmonary edema as above. Impression dictated by: Cruzito Schultz M.D. 07/15/2025 3:29 PM Dictation Location: [place] [address] Electronically authenticated by: [id number] Y Date: 07/15/2025 15:29
--- NOTE | 2025-07-15 14:30 | ED_ITS ---
HPI - SOB/Dyspnea General Chief Complaint: Shortness of Breath/Dyspnea Stated Complaint: SOB Time Seen by Provider: 07/15/25 14:28 Source: patient Mode of arrival: Wheelchair Limitations: no limitations History of Present Illness HPI Narrative: 70 year old male presents to the ED for SOB. It has been getting progressively worse over the past 3 weeks. Denies fever, chills, CP, dizziness, N/V/D. He has a productive cough. Pt has hx COPD. He wears [place] oxygen at 4L. He has had four recent higher doses of prednisone, but normally takes 10 mg daily. 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 Ruiz. Related Data Home Medications ?Medication ?Instructions ?Recorded ?Confirmed albuterol sulfate 90 mcg/actuation 2 inh inhalation Q4 H PRN shortness 01/17/23 07/15/25 aerosol inhaler of breath fluticasone fur. 100 mcg-umeclid 1 inh inhalation MAHESH Y 01/17/23 07/15/25 62.5 mcg-vilant 25 mcg inhalat.powder (Trelegy Ellipta) alpha-1 proteinase inhib.(hum) 7,000 mg IV .weekly 07/15/25 1,000 mg intravenous solution aspirin 81 mg tablet,delayed 81 mg PO DAILY 05/23/23 1 09/15/24 release (Adult Low Dose Aspirin) multivitamin with iron (Daily 1 tab PO DAILY 05/23/23 07/15/25 Vitamin with Iron tablet) metoprolol tartrate 50 mg tablet 50 mg PO BID 10/17/23 07/15/25 (Lopressor) apixaban 5 mg tablet (Eliquis) 5 mg PO Q12H 11/28/23 1 09/15/24 albuterol sulfate 2.5 mg/3 mL 2.5 mg inhalation Q4H WI N 07/15/25 07/15/25 (0.083 %) solution for nebulization shortness of breat h or wheezing prednisone 10 mg tablet 10 mg PO DAILY 07/15/2507/06 topiramate 50 mg tablet 50 mg PO BID 07/15/25 Allergies Allergy/AdvReac Type Severity Reaction Status Date / Time No Known Drug Allergies Allergy Verified 07/15/25 14:18 PFSH [facility] Medical History (Updated 07/15/25 @ 15:54 by Cielo Magaña) A-fib ?I48.91 - Unspecified atrial fibrillation (ICD-10) High blood pressure ?I10 - Essential (primary) hypertension (ICD-10) 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 - Genetic carrier of other disease (ICD-10) Emphysema lung ?J43.9 - Emphysema, unspecified (ICD-10) COPD (chronic obstructive pulmonary disease) ?J44.9 - Chronic obstructive pulmonary disease, unspecified (ICD-10) Skin cancer (~05/2021) ?C44.90 - Unspecified malignant neoplasm of skin, unspecified (ICD-10) Surgical History History of cholecystectomy (~2019) ?Z90.49 - Acquired absence of other specified parts of digestive tract (ICD- 10) Hx of tonsillectomy (~04/2020) ?Z90.89 - Acquired absence of other organs (ICD-10) Family History Mother Emphysema of lung Father Leukemia Social History Smoking status: Former smoker What tobacco products do you use: cigarettes Packs per day: 1 Smoking quit date/years: <= 15 years ago Little interest or pleasure in doing things: not at all Feeling down, depressed, or hopeless: not at all Exam Constitutional Vital Signs, click to edit/add: Last Vital Signs Temp 97.8 F 07/15/25 14:18 Pulse 97 H 07/15/25 17:15 Resp 15 07/15/25 17:15 BP 150/88 H 07/15/25 17:15 Pulse Ox 93 L 07/15/25 17:15 O2 Del Method Nasal Cannula 07/15/25 14:46 O2 Flow Rate 4 07/15/25 14:46 Common normals: oriented x3 General appearance: cooperative HENMT Common normals: moist oral mucous membranes Eye Common normals: conjunctivae normal and no scleral icterus Neck & C-Spine Common normals: supple Respiratory Effort & inspection: symmetric chest movement, tachypneic and labored; no stridor Auscultation: wheezes Cardio Common normals: regular rhythm Rate: tachycardic Neuro Common normals: oriented x3, CN's II-XII intact bilaterally and moves all extremities Sensorium/orientation: awake and alert Speech: speech normal Course Vital Signs Vital signs: Vital Signs Temperature 97.8 F 07/15/25 14:18 Pulse Rate 152 H 07/15/25 14:18 Respiratory Rate 24 H 07/15/25 14:18 Blood Pressure 132/103 H 07/15/25 14:18 Pulse Oximetry 92 L 07/15/25 14:18 Oxygen Delivery Method Nasal Cannula 07/15/25 14:18 Oxygen Delivery Flow Rate 4 07/15/25 14:18 Temperature 97.8 F 07/15/25 14:18 Pulse Rate 97 H 07/15/25 17:15 Respiratory Rate 15 07/15/25 17:15 Blood Pressure 150/88 H 07/15/25 17:15 Pulse Oximetry 93 L 07/15/25 17:15 Oxygen Delivery Method Nasal Cannula 07/15/25 14:46 Oxygen Delivery Flow Rate 4 07/15/25 14:46 MDM - SOB/Dyspnea MDM Narrative Medical decision making narrative: Chest x-ray showed findings suggestive of congestive heart failure with pulmonary edema. BNP was 147, troponin 14.5. Findings were discussed with the patient and his significant other. He denied known history of CHF. He was given IV Lasix. He will be admitted for further evaluation and treatment. I spoke with Dr. Robles who accepted the patient for admission. A full and detailed handoff r eport was given. Differential Diagnosis Differential diagnosis: Likely acute exacerbation of chronic obstructive airways disease, congestive heart failure and community acquired pneumonia Medical Records Attestation: I reviewed the patient's medical records. Lab Data Attestation: I reviewed the patient's lab results. Labs: Lab Results 07/15/25 Range/Units 14:30 WBC 11.6 H (4.0-11.0) 10^3/uL RBC 4.09 L (4.70-6.10) 10^6/uL Hgb 13.5 L (14.0-18.0) g/dL Hct 39.6 L (42.0-54.0) % MCV 96.8 H (80.0-94.0) fL MCH 33.0 (25.9-34.0) pg MCHC 34.1 (29.9-35.2) g/dL RDW 12.3 (11.0-15.0) % Plt Count 326 (150-450) 10^3/uL MPV 10.5 (9.5-13.5) fL Neut % (Auto) 58.1 (43.0-75.0) % Lymph % (Auto) 29.1 (20.5-60.0) % [place] % (Auto) 10.6 (1.7-12.0) % Eos % (Auto) 1.6 (0.9-7.0) % Baso % (Auto) 0.3 (0.2-2.0) % Neut # (Auto) 6.7 H (1.4-6.5) 10^3/uL Lymph # (Auto) 3.4 (1.2-3.8) 10^3/uL [place] # (Auto) 1.2 H (0.3-0.8) 10^3/uL Eos # (Auto) 0.2 (0.0-0.7) 10^3/uL Baso # (Auto) 0.0 (0.0-0.1) 10^3/uL Abs Immat Gran (auto) 0.04 H (0.00-0.03) 10^3/uL Imm/Tot Granulo (auto) 0.3 (0.0-0.5) % Sodium 140 (136-145) mmol/L Potassium 3.6 (3.5-5.1) mmol/L Chloride 103 (98-107) mmol/L Carbon Dioxide 29.3 (21.0-32.0) mmol/L Anion Gap 11.3 BUN 15.0 (7.0-18.0) mg/dL Creatinine 1.05 (0.70-1.30) mg/dL Est GFR ( Amer) >60 (>=60 mL/min/1.73m^2) Est GFR (Non-Af Amer) >60 (>=60 mL/min/1.73m^2) BUN/Creatinine Ratio 14.3 Glucose 99 (74-106) mg/dL Lactate 1.9 (0.4-2.0) mmol/L Calcium 9.3 (8.5-10.1) mg/dL Total Bilirubin 0.4 (0.2-1.0) mg/dL AST 26 (15-37) U/L ALT 76 H (16-63) U/L Alkaline Phosphatase 107 (46-116) U/L Troponin I High Sens 14.5 (4.0-76.1) pg/mL NT-Pro-B Natriuret Pep 147.0 (<=900.0) pg/mL Total Protein 7.6 (6.4-8.2) g/dL Albumin 3.0 L (3.4-5.0) g/dL Globulin 4.6 g/dL Albumin/Globulin Ratio 0.7 Imaging Data Chest x-ray: Attestation: I have reviewed the pertinent imaging results. Radiologist's impression: ITS Impressions Chest X-Ray 07/15/25 14:28 IMPRESSION: Findings suggest congestive heart failure with pulmonary edema as above. Impression dictated by: Cruzito Schultz M.D. 07/15/2025 3:29 PM Dictation Location: [place] [address] Electronically authenticated by: [id number] Y Date: 07/15/2025 15:29 ECG Data Attestation: ?I have reviewed the pertinent ECG results. (EKG was reviewed by the ED attending. It showed sinus rhythm at a rate of 97. No acute ST segment changes.) Interpretation: Measurements Intervals [place] Rate: 97 P: 64 WI: 156 QRS: 75 QRSD: 90 T: 71 QT: 338 QTc: 392 Interpretive Statements 1100 Sinus rhythm 9110 normal ECG No previous ECG available for comparison Discharge Plan Discharge Chief Complaint: Shortness of Breath/Dyspnea Clinical Impression: Congestive heart failure, Acute exacerbation of chronic obstructive pulmonary disease Patient Disposition: Admitted As Inpatient Time of Disposition Decision: 16:13 Condition: Fair
[2025-07-15] MEDS: LEVALBUTEROL HCL 1.25 MG/3 ML VIAL NEB IH (14:44)
[2025-07-15] MEDS: METHYLPREDNISOLONE SOD SUCC PF 125 MG/2 ML VIAL IVP (14:44)
[2025-07-15 14:53] LABS: Hematocrit 39.6 % (42.0-54.0); Hemoglobin 13.5 g/dL (14.0-18.0); Immature Granulocytes Abs Auto 0.04 10^3/uL (0.00-0.03); Immature Granulocytes Pct Auto 0.3 % (0.0-0.5); Lymphocytes Absolute Auto 3.4 10^3/uL (1.2-3.8); Mean Corpuscular HGB Conc 34.1 g/dL (29.9-35.2); Mean Corpuscular Hemoglobin 33.0 pg (25.9-34.0); Mean Corpuscular Volume 96.8 fL (80.0-94.0); Platelet Count 326 10^3/uL (150-450); Red Blood Count 4.09 10^6/uL (4.70-6.10); White Blood Count 11.6 10^3/uL (4.0-11.0)
[2025-07-15 15:06] LABS: Lactate/Lactic Acid 1.9 mmol/L (0.4-2.0)
[2025-07-15 15:12] LABS: Alanine Aminotransferase 76 U/L (16-63); Albumin Globulin Ratio 0.7; Albumin Level 3.0 g/dL (3.4-5.0); Alkaline Phosphatase 107 U/L (46-116); Anion Gap 11.3; Aspartate Amino Transferase 26 U/L (15-37); Blood Urea Nitrogen 15.0 mg/dL (7.0-18.0); Calcium 9.3 mg/dL (8.5-10.1); Carbon Dioxide 29.3 mmol/L (21.0-32.0); Chloride 103 mmol/L (98-107); Estimated GFR (African America >60 (>=60 mL/min/1.73m^2); Estimated GFR (Non-African Ame >60 (>=60 mL/min/1.73m^2); Globulin 4.6 g/dL; Glucose 99 mg/dL (74-106); NT Pro B Type Natriuretic Pept 147.0 pg/mL (<=900.0); Potassium 3.6 mmol/L (3.5-5.1); Sodium 140 mmol/L (136-145); Total Protein 7.6 g/dL (6.4-8.2)
[2025-07-15] MEDS: FUROSEMIDE 40 MG/4 ML VIAL IVP (16:05)
[2025-07-15] MEDS: AZITHROMYCIN 500 MG in 0.9 % SODIUM CHLORIDE 250 ML 250 MG IV (16:05)
[2025-07-15 18:14] LABS: SARS-CoV-2 Ag NEGATIVE (NEGATIVE)
--- NOTE | 2025-07-15 18:17 | P.IMHP_ITS ---
Internal Medicine - H&P: HPI History of Present Illness Chief complaint: SOB, NEW ONSET CHF COPD EXACB Narrative: This is a 70-year-old male with past medical history of chronic hypoxic respiratory failure due to alpha-1 antitrypsin deficiency emphysema, COPD on 4 L nasal cannula at home, atrial fibrillation on Eliquis, skin cancer, who is here today for shortness of breath. History obtained from the patient, his family members, chart review and ED staff. Patient states that he was diagnosed with alpha-1 antitrypsin deficiency 5 years ago and he was doing fantastic until March 2025 when he started having frequent exacerbations. He follows Dr. Ruiz, service desk director and he was placed on multiple courses of antibiotics and steroids. He states that he has been getting winded quickly with and getting short of breath and fatigued with any sort of exertion. He also reports cough that is productive of clear sputum with sometimes streaks of blood after excessive coughing he denies to me any chest pain or nausea or vomiting or diaphoresis. Denies any dizziness or syncope. In the ED, patient was ta chycardic at 97 and saturating 91 to 92% later on became 93 to 94% on his 4 L nasal cannula. His CBC did show leukocytosis of 11,000 with stable hemoglobin and platelet count. His chemistry was unremarkable.. He was negative for influenza A, influenza B, and COVID. His chest x-ray did show finding suggestive congestive heart failure with pulmonary edema as per radiology however on exam patient did not appear to be as fluid overloaded.. In the ED, patient received 1 dose of azithromycin 500 mg IV once as well as 1 dose of ceftriaxone 1 g once and 1 dose of furosemide 40 mg IV once. Also received levalbuterol and 1 dose of methylprednisolone 125 mg IV once. Patient to be admitted under hospitalist service for further workup and management. 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 - Genetic carrier of other disease (ICD-10) Emphysema lung ?J43.9 - Emphysema, unspecified (ICD-10) COPD (chronic obstructive pulmonary disease) ?J44.9 - Chronic obstructive pulmonary disease, unspecified (ICD-10) Skin cancer (~05/2021) ?C44.90 - Unspecified malignant neoplasm of skin, unspecified (ICD-10) Surgical History History of cholecystectomy (~2019) ?Z90.49 - Acquired absence of other specified parts of digestive tract (ICD- 10) Hx of tonsillectomy (~04/2020) ?Z90.89 - Acquired absence of other organs (ICD-10) Family History Mother Emphysema of lung Father Leukemia Social History Smoking status: Former smoker What tobacco products do you use: cigarettes Packs per day: 1 Smoking quit date/years: <= 15 years ago Highest level of school completed/degree received: high school graduate Little interest or pleasure in doing things: not at all Feeling down, depressed, or hopeless: not at all Meds Home Medications and Allergies Home Medications ?Medication ?Instructions ?Recorded ?Confirmed ?Type albuterol sulfate 90 mcg/actuation 2 inh inhalation Q4 H PRN shortness 01/17/23 07/15/25 History aerosol inhaler of breath fluticasone fur. 100 mcg-umeclid 1 inh inhalation MAHESH Y 01/17/23 07/15/25 History 62.5 mcg-vilant 25 mcg inhalat.powder (Trelegy Ellipta) alpha-1 proteinase inhib.(hum) 7,000 mg IV .weekly 07/15/25 History 1,000 mg intravenous solution aspirin 81 mg tablet,delayed 81 mg PO DAILY 05/23/23 1 09/15/24 History release (Adult Low Dose Aspirin) multivitamin with iron (Daily 1 tab PO DAILY 05/23/23 07/15/25 History Vitamin with Iron tablet) metoprolol tartrate 50 mg tablet 50 mg PO BID 10/17/23 07/15/25 History (Lopressor) apixaban 5 mg tablet (Eliquis) 5 mg PO Q12H 11/28/23 1 09/15/24 History albuterol sulfate 2.5 mg/3 mL 2.5 mg inhalation Q4H DC N 07/15/25 07/15/25 History (0.083 %) solution for nebulization shortness of breat h or wheezing prednisone 10 mg tablet 10 mg PO DAILY 07/15/2507/06 History topiramate 50 mg tablet 50 mg PO BID 07/15/25 History Allergies Allergy/AdvReac Type Severity Reaction Status Date / Time No Known Drug Allergies Allergy Verified 07/15/25 14:18 Exam Narrative Exam Narrative: General appearance: Patient ill-appearing in mild respiratory distress with audible wheezing and not able to speak in full sentences. He is not tachypneic but does have increased work of breathing. He does not use accessory muscles. Sitting up in bed very pleasant and cooperative. He is ill-appearing as a mention. Skin/oral cavity: moist oral mucous membranes Head: Atraumatic, normocephalic Eyes: conjunctivae normal and no scleral icterus, PERRLA, EOMI supple, no JVD, no lymphadenopathy, no thyromegaly Pulm: Effort & inspection: Decreased bilateral air entry with expiratory wheezes, could not hear rhonchi well however patient does have difficulty speaking in full sentences and also he has increased work of breathing. He is not tachypneic though. He does not use accessory muscles. He is not using abdominal wall muscles he is in mild respiratory distress CVS: regular rhythm, normal heart rate, no murmurs, normal S1 and S2 Abdomen: Soft, nontender, no organomegaly, no signs of acute abdomen Extremities: Intact peripheral pulses bilaterally, no lower extremity edema Neuro: oriented x3, CN's II-XII intact bilaterally and moves all extremities, normal speech, no focal deficits Constitutional Vital Signs, click to edit/add: Last Vital Signs Temp 97.8 F 07/15/25 14:18 Pulse 104 H 07/15/25 18:00 Resp 15 07/15/25 17:15 BP 150/88 H 07/15/25 17:15 Pulse Ox 93 L 07/15/25 17:15 O2 Del Method Nasal Cannula 07/15/25 14:46 O2 Flow Rate 4 07/15/25 14:46 Internal Medicine - H&P: Reslt Labs Labs: Short CBC 07/15/25 Range/Units 14:30 WBC 11.6 H (4.0-11.0) 10^3/uL Hgb 13.5 L (14.0-18.0) g/dL Hct 39.6 L (42.0-54.0) % Plt Count 326 (150-450) 10^3/uL BMP 07/15/25 14:30 Sodium 140 Potassium 3.6 Chloride 103 Carbon Dioxide 29.3 BUN 15.0 Creatinine 1.05 Glucose 99 Calcium 9.3 Liver Function 07/15/25 Range/Units 14:30 Total Bilirubin 0.4 (0.2-1.0) mg/dL AST 26 (15-37) U/L ALT 76 H (16-63) U/L Alkaline Phosphatase 107 (46-116) U/L Albumin 3.0 L (3.4-5.0) g/dL Assessment and Plan Assessment and Plan (1) COPD exacerbation: Plan Acute hypoxic respiratory failure in the setting of acute COPD/emphysema exacerbation with superimposed pneumonia CHF exacerbations like slightly given his clinical picture and normal BNP - Admit patient to medical floor with telemetry monitoring -Patient is currently on his 4 L nasal cannula saturating 93% which I am okay with -Start IV azithromycin 5 mg every 24 hours and IV Zosyn to be dosed by pharmacy -Obtain sputum culture -Continue DuoNebs and Robitussin -Start with IV methylprednisolone 40 mg every 8 hours -I did reconcile his medications including his p.o. anticoagulation -Will hold off on further IV diuresis as he appears to be as euvolemic -Ordered CT chest without contrast -Obtain cardiology consult and obtain echocardiogram -Full code, I discussed that with the patient and his family members. I will update that in the chart -Discussed the plan with the patient in details. Answered all his questions -PT/OT ema
--- NOTE | 2025-07-15 18:18 | CT_ITS ---
The [address] [address] Patient Name: STACEY COLEY MRN: [id number] date: 1955 Sex: M Assigned Patient Location: MS Current Patient Location: Accession/Order Number: [id number] Exam Date: 07/15/2025 18:34 Report Date: 07/15/2025 20:17 At the request of: QUINCY ALBERTO MD Procedure: CT chest wo con CT CHEST WITHOUT IV CONTRAST: CLINICAL HISTORY: hypoxic resp failure COMPARISON: Chest x-ray 07/15/2025 TECHNIQUE: Spiral images were obtained through the chest without IV contrast. This CT exam was performed using one or more following dose reduction techniques: Automated exposure control, adjustment of the mA and/or kV according to patient size, or use of iterative reconstruction technique. FINDINGS: Mediastinum:Heart is grossly normal size with mild three-vessel coronary artery calcifications. No pathologic mediastinal or hilar adenopathy on this noncontrast examination. No pericardial effusion. There is mild to moderate scattered mucosal thickening and plugging identified both lower lobes Lungs:Emphysematous changes noted with severe bullous changes on the left notably involving the... Left upper lobe. Lingular consolidation noted. Right lower lobe consolidation with patchy left lower lobe opacity. No effusion or pneumothorax. No definite nodularity Abd:[Unremarkable upper abdominal images.] Soft tissues/Bones: [Degenerative changes. No suspicious osseous lesion.] CT/CT chest wo con IMPRESSION: [] Multifocal opacities most confluent within the right lung base worrisome for pneumonia. Lingular consolidation possibly due to atelectasis versus pneumonia. Left lower lobe bronchial plugging with atelectasis. Impression dictated by: Alvin Perez M.D. 07/15/2025 8:17 PM Dictation Location: [place] [address] Electronically authenticated by: [id number] Y Date: 07/15/2025 20:17
--- NOTE | 2025-07-15 18:29 | PC.NURSE ---
pt admitted to [facility], family at bedside. pt denies pain, wears 4lnc. pt states he follows with [facility] cardiology and with pulm. has intermittent afib. oriented to room and call light. meal ordered.
[2025-07-15] MEDS: PIPERACILLIN SODIUM/TAZOBACTAM 3.375 GM in 0.9 % SODIUM CHLORIDE 50 ML IV (20:59)
[2025-07-15] MEDS: TOPIRAMATE 25 MG TABLET 50 MG PO (21:02)
[2025-07-15] MEDS: APIXABAN 5 MG TABLET PO (21:02)
[2025-07-15] MEDS: METOPROLOL TARTRATE 50 MG TABLET PO (21:02)
[2025-07-15] MEDS: BUDESONIDE 0.5 MG/2 ML AMPULE NEB IH (22:03)
[2025-07-15] MEDS: IPRATROPIUM/ALBUTEROL SULFATE 3 ML AMPUL.NEB IH (22:03)
[2025-07-16] VITALS (78 sets, daily range): BP systolic 114–160; BP diastolic 59–87; PULSE 72–145; TEMP 36.8–36.9; O2SAT 86–100; BMI 38.9
--- NOTE | 2025-07-16 00:32 | ECG_ITS ---
The [facility] Test Date: 2025-07-16 Pat Name: STACEY COLEY Department: Room: 220 Gender: Male Rn Practitioner: : 1955 Requested By: [id number] Order Number: [id number] Reading MD: ZAFAR RODRÍGUEZ Measurements Intervals [place] Rate: 133 P: [place]: QRS: 59 QRSD: 90 T: 64 QT: 289 QTc: 430 Interpretive Statements ATRIAL FIBRILLATION WITH RAPID VENTRICULAR RESPONSE MODERATE ST DEPRESSION [0.05+ mV ST DEPRESSION] Compared to ECG 07/15/2025 14:23:34 ST (T wave) deviation now present Sinus rhythm no longer present Electronically Signed On 07-16-2025 15:52:30 EST by ZAFAR RODRÍGUEZ
[2025-07-16] MEDS: DILTIAZEM HCL 25 MG/5 ML VIAL 10 MG IV (00:48)
[2025-07-16] MEDS: GUAIFENESIN 200 MG/10 ML LIQUID 400 MG PO ×2 (01:00→21:24)
[2025-07-16] MEDS: DIGOXIN 500 MCG/2 ML AMPUL 250 MCG IV (01:39)
--- NOTE | 2025-07-16 04:00 | ECG_ITS ---
The [facility] Test Date: 2025-07-16 Pat Name: STACEY COLEY Department: Room: [facility] Gender: Male Turning Sander Operator: : 1955 Requested By: [id number] Order Number: [id number] Reading MD: DEBI HATFIELD M.D. Measurements Intervals [place] Rate: 76 P: -9 AK: 172 QRS: 61 QRSD: 86 T: 55 QT: 392 QTc: 423 Interpretive Statements 1100 Sinus rhythm 1470 with occasional supraventricular premature complexes 9140 abnormal rhythm ECG Compared to ECG 07/16/2025 00:40:59 Atrial fibrillation no longer present ST (T wave) deviation no longer present Electronically Signed On 07-17-2025 7:24:42 EST by DEBI HATFIELD M.D.
[2025-07-16] MEDS: PIPERACILLIN SODIUM/TAZOBACTAM 3.375 GM in 0.9 % SODIUM CHLORIDE 50 ML IV ×3 (04:24→20:32)
[2025-07-16] MEDS: IPRATROPIUM/ALBUTEROL SULFATE 3 ML AMPUL.NEB IH ×2 (04:55→11:02)
[2025-07-16 05:38] LABS: Hematocrit 38.5 % (42.0-54.0); Hemoglobin 12.9 g/dL (14.0-18.0); Immature Granulocytes Abs Auto 0.05 10^3/uL (0.00-0.03); Immature Granulocytes Pct Auto 0.4 % (0.0-0.5); Lymphocytes Absolute Auto 2.2 10^3/uL (1.2-3.8); Mean Corpuscular HGB Conc 33.5 g/dL (29.9-35.2); Mean Corpuscular Hemoglobin 32.2 pg (25.9-34.0); Mean Corpuscular Volume 96.0 fL (80.0-94.0); Platelet Count 346 10^3/uL (150-450); Red Blood Count 4.01 10^6/uL (4.70-6.10); White Blood Count 12.2 10^3/uL (4.0-11.0)
[2025-07-16 06:00] LABS: Alanine Aminotransferase 65 U/L (16-63); Albumin Globulin Ratio 0.7; Albumin Level 2.9 g/dL (3.4-5.0); Alkaline Phosphatase 98 U/L (46-116); Anion Gap 13.2; Aspartate Amino Transferase 22 U/L (15-37); Blood Urea Nitrogen 19.0 mg/dL (7.0-18.0); Calcium 9.5 mg/dL (8.5-10.1); Carbon Dioxide 27.1 mmol/L (21.0-32.0); Chloride 103 mmol/L (98-107); Estimated GFR (African America >60 (>=60 mL/min/1.73m^2); Estimated GFR (Non-African Ame >60 (>=60 mL/min/1.73m^2); Globulin 4.4 g/dL; Glucose 144 mg/dL (74-106); Magnesium 2.1 mg/dL (1.8-2.4); Potassium 4.3 mmol/L (3.5-5.1); Sodium 139 mmol/L (136-145); Total Protein 7.3 g/dL (6.4-8.2)
[2025-07-16] MEDS: PANTOPRAZOLE SODIUM 40 MG TABLET.DR PO (06:06)
[2025-07-16] MEDS: METOPROLOL TARTRATE 50 MG TABLET PO (08:23)
[2025-07-16] MEDS: ASPIRIN 81 MG TABLET.DR PO (09:29)
[2025-07-16] MEDS: MULTIVITAMIN TABLET 1 TAB PO (09:30)
[2025-07-16] MEDS: APIXABAN 5 MG TABLET PO ×2 (09:30→21:24)
[2025-07-16] MEDS: METHYLPREDNISOLONE SOD SUCC PF 40 MG/ML VIAL IVP ×2 (09:30→21:25)
[2025-07-16] MEDS: TOPIRAMATE 25 MG TABLET 50 MG PO ×2 (09:30→21:24)
--- NOTE | 2025-07-16 09:50 | CM.NOTE ---
Rounds made with Dr. Robles, discussed diagnosis and plan of care. Pt does have home oxygen @4L [place] and continues on 4L at this time. Pt does c/o increased dyspnea with minimal exertion. No discharge today, continue treatment as ordered.
[2025-07-16] MEDS: BUDESONIDE 0.5 MG/2 ML AMPULE NEB IH ×2 (11:02→23:08)
--- NOTE | 2025-07-16 11:14 | P.IMPN_ITS ---
Progress Note: A&P Assessment and Plan (1) COPD exacerbation: (2) Community acquired pneumonia: (3) Acute hypoxic respiratory failure: Plan Acute hypoxic respiratory failure in the setting of acute COPD/emphysema exacerbation with superimposed multifocal pneumonia CHF exacerbations like slightly given his clinical picture and normal BNP A-fib with RVR, brief episode in the setting of the above - Admit patient to medical floor with telemetry monitoring -Patient is currently on his 4 L nasal cannula saturating 93% which I am okay with -Start IV azithromycin 5 mg every 24 hours and IV Zosyn to be dosed by pharmacy -Obtain sputum culture -Continue DuoNebs and Robitussin -Start with IV methylprednisolone 40 mg every 8 hours -I did reconcile his medications including his p.o. anticoagulation -Will hold off on further IV diuresis as he appears to be as euvolemic -Ordered CT chest without contrast -Obtain cardiology consult and obtain echocardiogram -Full code, I discussed that with the patient and his family members. I will update that in the chart -Discussed the plan with the patient in details. Answered all his questions -PT/OT eval 07/16/2025 patient's work of breathing appears to be normal. CT chest without contrast showed multifocal pneumonia. Hold off on further IV diuresis. Will sw itch his DuoNeb to levalbuterol given his tachycardia and A-fib RVR. Will continue with IV azithromycin and IV Zosyn that are being dosed by pharmacy. Sputum cultures pending. Ordered PAP to help with his secretions. Patient's p.o. metoprolol will continue as well. I will continue the patient on his IV methylprednisone but will make it every 12 hours. Echo read is pending. I will update his toxics program officer as outpatient, Dr. Ruiz later today or tomorrow depending on his clinical response. I discussed the plan with the patient and his family members in details. Answered all their questions. They were appreciative of our efforts Internal Medicine - PN: Subj Subjective Interval history: Patient seen and examined at bedside. He was accompanied by his and daughter in the room. I was notified by nursing team that patient went into brief episode of A-fib RVR that responded well to Cardizem and was stopped already in the morning. When I saw him today, he still me that he is shortness of breath is better than yesterday. He is able to walk to the bathroom still with shortness breath however better than when he came in. Patient appeared to me is able to speak in full sentences. He is on 4 L nasal cannula satting 94%. CT chest without contrast was reviewed with the patient and the family members Exam Narrative Exam Narrative: General appearance: Patient ill-appearing with improved work of breathing today compared to yesterday. He is not tachypneic and his work of breathing is better he is able to speak in full sentences.He does not use accessory muscles. Sitting up in bed very pleasant and cooperative. He is ill-appearing as a mention. Skin/oral cavity: moist oral mucous membranes Head: Atraumatic, normocephalic Eyes: conjunctivae normal and no scleral icterus, PERRLA, EOMI supple, no JVD, no lymphadenopathy, no thyromegaly Pulm: Effort & inspection: Decreased bilateral air entry with expiratory wheezes, work of breathing improved compared to yesterday. Also patient is able to speak in full sentences today he is not tachypneic. He does not use accessory muscles. He is not using abdominal wall muscles he is in mild respiratory distress CVS: regular rhythm, normal heart rate, no murmurs, normal S1 and S2 Abdomen: Soft, nontender, no organomegaly, no signs of acute abdomen Extremities: Intact peripheral pulses bilaterally, no lower extremity edema Neuro: oriented x3, CN's II-XII intact bilaterally and moves all extremities, normal speech, no focal deficits Constitutional Vital Signs, click to edit/add: Last Vital Signs Temp 98.4 F 07/16/25 08:00 Pulse 86 07/16/25 11:05 Resp 14 07/16/25 08:00 BP 144/76 H 07/16/25 08:00 Pulse Ox 94 L 07/16/25 11:05 O2 Del Method Nasal Cannula 07/16/25 11:05 O2 Flow Rate 4 07/16/25 11:05 Internal Medicine - PN: Obj Da Labs Labs: Laboratory Results - last 24 hr 07/15/25 07/15/25 07/16/25 14:30 17:47 05:15 WBC 11.6 H 12.2 H RBC 4.09 L 4.01 L Hgb 13.5 L 12.9 L Hct 39.6 L 38.5 L MCV 96.8 H 96.0 H MCH 33.0 32.2 MCHC 34.1 33.5 RDW 12.3 12.2 Plt Count 326 346 MPV 10.5 10.4 Neut % (Auto) 58.1 76.7 H Lymph % (Auto) 29.1 18.0 L [place] % (Auto) 10.6 4.8 Eos % (Auto) 1.6 0.0 L Baso % (Auto) 0.3 0.1 L Neut # (Auto) 6.7 H 9.4 H Lymph # (Auto) 3.4 2.2 [place] # (Auto) 1.2 H 0.6 Eos # (Auto) 0.2 0.0 Baso # (Auto) 0.0 0.0 Abs Immat Gran (auto) 0.04 H 0.05 H Imm/Tot Granulo (auto) 0.3 0.4 Sodium 140 139 Potassium 3.6 4.3 Chloride 103 103 Carbon Dioxide 29.3 27.1 Anion Gap 11.3 13.2 BUN 15.0 19.0 H Creatinine 1.05 0.95 Est GFR ( Amer) >60 >60 Est GFR (Non-Af Amer) >60 >60 BUN/Creatinine Ratio 14.3 20.0 Glucose 99 144 H Lactate 1.9 Calcium 9.3 9.5 Phosphorus 4.4 Magnesium 2.1 Total Bilirubin 0.4 0.4 AST 26 22 ALT 76 H 65 H Alkaline Phosphatase 107 98 Troponin I High Sens 14.5 NT-Pro-B Natriuret Pep 147.0 Total Protein 7.6 7.3 Albumin 3.0 L 2.9 L Globulin 4.6 4.4 Albumin/Globulin Ratio 0.7 0.7 Influenza Type A Ag Negative Influenza Type B Ag Negative RSV Antigen Not detected SARS-CoV-2 Ag (CV2AG) Negative
[2025-07-16] MEDS: AZITHROMYCIN 500 MG in 0.9 % SODIUM CHLORIDE 250 ML 250 MG IV (11:31)
[2025-07-16] MEDS: 0.9 % SODIUM CHLORIDE 250 ML 10 ML IV (11:43)
--- NOTE | 2025-07-16 12:38 | ECG_ITS ---
[facility] Test Date: 2025-07-16 Pat Name: STACEY COLEY Department: Room: [facility] [place] Gender: Male Supervisor [place]: : 1955 Requested By: Nereida Reinoso Order Number: [id number] Reading MD: ZAFAR RODRÍGUEZ Measurements Intervals Leonore Rate: 133 P: 270 AR: 192 QRS: 54 QRSD: 86 T: 47 QT: 320 QTc: 398 Interpretive Statements Supraventricular tachycardia, likely atrial tachycardia [address] depression 9150 abnormal ECG Compared to ECG 07/16/2025 00:40:59 Atrial fibrillation no longer present ST (T wave) deviation still present Electronically Signed On 07-16-2025 15:56:19 EST by ZAFAR RODRÍGUEZ
--- NOTE | 2025-07-16 13:35 | NUTR.NU ---
Nutrition education provided to Brock at [facility]. and dght at bedside. Discussed sodium content of foods. Suggested low sodium diet and avoid foods with high sodium. Brochure Planning healthy meals was provided.
--- NOTE | 2025-07-16 14:16 | CM.NOTE ---
Important Message From Medicare discussed with pt, pt verbalizes understanding and signs paper. Original given to pt and copy placed in pt's chart.
--- NOTE | 2025-07-16 15:54 | SWNOTE1 ---
SW met with pt to discuss dc needs. Pt's in room as well. Pt lives at home with his . Pt is independent at home. Does not use any devices. Pt is on home oxygen at 4 liters. Pt does not have any anticipated discharge needs at this time. SW to follow as needed. SW called [facility] and confirmed pt does have home oxygen at 4 liters continuous.
--- NOTE | 2025-07-16 16:16 | CA_ITS ---
Patient Name: STACEY COLEY MR#: [id number] : 1955 Exam Date: 07/16/2025 Ordering Doctor: QUINCY ALBERTO ECHOCARDIOGRAM REPORT PROCEDURE: CA ECHO DOPPLER COMPLETE INDICATIONS: CHF exacerbation, COPD, hypertension, atrial fibrillation, acute hypoxic respiratory failure COMPARISON: None. DESCRIPTION: COMPLETE ECHOCARDIOGRAM Real-time transthoracic echocardiography with 2D, M-mode, spectral and color flow Doppler performed. QUALITY: Technical quality was good. LEFT VENTRICLE: Normal chamber size. Thickened septal wall. LV EF: Global left ventricular systolic function is hyperdynamic; visually estimated ejection fraction 65 to 70%. No significant wall motion abnormalities. DIASTOLIC: Diastolic function is indeterminate. ATRIAL SEPTUM: Inadequately seen. LEFT ATRIUM: Normal chamber size. RIGHT ATRIUM: Normal chamber size. RIGHT VENTRICLE: Normal chamber size. Normal right ventricular systolic function. TRICUSPID VALVE: Normal mobility and thickness. No stenosis with trivial regurgitation. Unable to assess right-sided pressure due to the lack of measurable tricuspid regurgitation. MITRAL VALVE: Normal mobility and thickness. No evidence of mitral valve stenosis. There is no mitral annular calcification. No mitral regurgitation. AORTIC VALVE: Normal trileaflet appearance. Mildly calcified aortic valve. Mildly elevated peak velocity with no significant stenosis. No evidence of aortic valve stenosis. DVI 0.5, NUSRAT 2.3 cm2. No aortic regurgitation. AORTIC ROOT: Normal diameter and appearance. PULMONIC VALVE: Normal thickness and mobility. No stenosis. Trivial regurgitation. PERICARDIUM: No evidence of pericardial effusion. IVC: Not well visualized. CONCLUSION: 1. Global left ventricular systolic function is hyperdynamic; visually estimated ejection fraction is 65 to 70% 2. Normal right ventricular size and systolic function 3. The left atrium is normal in size 4. No significant valvular abnormalities Adult Echocardiography Procedure Report Left Ventricle LVEDD (3.7 - 5.6 cm): 4.37 cm LVESD (2.2 - 4.0 cm): 2.85 cm LVIVS thickness (0.6 - 1.2 cm): 1.20 cm LVPW thickness (0.5 - 1.0 cm): 0.98 cm e': 0.09 m/s E - e': 5.47 LVOT Max Gradient: 5.52 mm[Hg] Peak Velocity (LVOT): 1.18 m/s Mean Velocity (LVOT): 0.70 m/s LVOT Diameter 2.27 cm Left Atrium LA Volume Index (2D A2C): 21.18 ml/m2 Left Atrium Systolic Dimension: 3.74 cm Mitral Valve MV E to A Ratio: 0.55 Mitral Valve A-Wave Peak Velocity: 0.87 m/s Mitral Valve E-Wave Peak Velocity: 0.48 m/s Right Ventricle Aorta AO Root Diam: 3.54 cm Aortic Valve AoV Area (Peak Justin): 2.20 cm2, 2.28 cm2 AoV Area (VTI): 2.35 cm2, 2.46 cm2 Peak Velocity(Antegrade Flow): 2.08 m/s, 2.12 m/s, 1.99 m/s, 2.15 m/s Peak Gradient(Antegrade Flow): 17.27 mm[Hg], 17.91 mm[Hg], 15.86 mm[Hg], 18.57 mm[Hg] Mean Velocity(Antegrade Flow): 1.17 m/s, 1.24 m/s, 1.36 m/s, 1.43 m/s Mean Gradient(Antegrade Flow): 6.98 mm[Hg], 7.85 mm[Hg], 8.70 mm[Hg], 9.62 mm[Hg] Velocity Time Integral: 42.80 cm, 44.83 cm, 42.95 cm, 44.71 cm Tricuspid Valve Pulmonic Valve Mean Gradient: 2.48 mm[Hg] Mean Velocity: 0.73 m/s Peak Velocity: 1.07 m/s Peak Gradient: 4.57 mm[Hg] Right Atrium Right Atrium Systolic Pressure: 41.65 ml, 41.65 ml Dictated by: Talia Perdomo M.D. on 07/16/2025 at 16:02 Approved by: Talia Perdomo M.D. on 07/16/2025 at 16:07
[2025-07-16] MEDS: LEVALBUTEROL HCL 1.25 MG/3 ML VIAL NEB IH ×2 (16:20→23:08)
[2025-07-17] VITALS (41 sets, daily range): BP systolic 121–188; BP diastolic 65–106; PULSE 68–118; TEMP 36.5; O2SAT 84–96
[2025-07-17] MEDS: PIPERACILLIN SODIUM/TAZOBACTAM 3.375 GM in 0.9 % SODIUM CHLORIDE 50 ML IV ×2 (03:39→11:03)
[2025-07-17] MEDS: LEVALBUTEROL HCL 1.25 MG/3 ML VIAL NEB IH ×2 (04:36→10:24)
--- NOTE | 2025-07-17 05:31 | PC.NURSE ---
After patient stood at bedside to urinate and with increase in recent coughing.
[2025-07-17 05:36] LABS: Hematocrit 38.1 % (42.0-54.0); Hemoglobin 12.8 g/dL (14.0-18.0); Immature Granulocytes Abs Auto 0.07 10^3/uL (0.00-0.03); Immature Granulocytes Pct Auto 0.5 % (0.0-0.5); Lymphocytes Absolute Auto 1.9 10^3/uL (1.2-3.8); Mean Corpuscular HGB Conc 33.6 g/dL (29.9-35.2); Mean Corpuscular Hemoglobin 33.0 pg (25.9-34.0); Mean Corpuscular Volume 98.2 fL (80.0-94.0); Platelet Count 367 10^3/uL (150-450); Red Blood Count 3.88 10^6/uL (4.70-6.10); White Blood Count 14.5 10^3/uL (4.0-11.0)
[2025-07-17] MEDS: PANTOPRAZOLE SODIUM 40 MG TABLET.DR PO (05:41)
[2025-07-17 06:12] LABS: Alanine Aminotransferase 73 U/L (16-63); Albumin Globulin Ratio 0.7; Albumin Level 3.1 g/dL (3.4-5.0); Alkaline Phosphatase 102 U/L (46-116); Anion Gap 13.5; Aspartate Amino Transferase 34 U/L (15-37); Blood Urea Nitrogen 23.0 mg/dL (7.0-18.0); Calcium 9.2 mg/dL (8.5-10.1); Carbon Dioxide 26.7 mmol/L (21.0-32.0); Chloride 103 mmol/L (98-107); Estimated GFR (African America >60 (>=60 mL/min/1.73m^2); Estimated GFR (Non-African Ame >60 (>=60 mL/min/1.73m^2); Globulin 4.3 g/dL; Glucose 171 mg/dL (74-106); Magnesium 2.3 mg/dL (1.8-2.4); Potassium 4.2 mmol/L (3.5-5.1); Sodium 139 mmol/L (136-145); Total Protein 7.4 g/dL (6.4-8.2)
[2025-07-17] MEDS: METHYLPREDNISOLONE SOD SUCC PF 40 MG/ML VIAL IVP (08:15)
[2025-07-17] MEDS: APIXABAN 5 MG TABLET PO (08:15)
[2025-07-17] MEDS: TOPIRAMATE 25 MG TABLET 50 MG PO (08:15)
[2025-07-17] MEDS: ASPIRIN 81 MG TABLET.DR PO (08:15)
[2025-07-17] MEDS: AZITHROMYCIN 500 MG in 0.9 % SODIUM CHLORIDE 250 ML 250 MG IV (08:15)
[2025-07-17] MEDS: MULTIVITAMIN TABLET 1 TAB PO (08:15)
--- NOTE | 2025-07-17 09:50 | CM.NOTE ---
Rounds made with Dr. Robles, updated pt and regarding plan of care. Discussed with pt and regarding transfer to [facility] for pulmonary care. Pt in agreement with transfer for further pulmonary management. Pt does follow with Dr. Ruiz for COPD management.
--- NOTE | 2025-07-17 10:10 | CM.NOTE ---
CM called [facility] to initiate transfer, no answer left message for machine setter supervisor to call CM back.
[2025-07-17] MEDS: BUDESONIDE 0.5 MG/2 ML AMPULE NEB IH (10:24)
--- NOTE | 2025-07-17 10:48 | P.IMPN_ITS ---
Progress Note: A&P Assessment and Plan (1) COPD exacerbation: (2) Community acquired pneumonia: (3) Acute hypoxic respiratory failure: Plan Acute hypoxic respiratory failure in the setting of acute COPD/emphysema exacerbation with superimposed multifocal pneumonia CHF exacerbations like slightly given his clinical picture and normal BNP A-fib with RVR, brief episode in the setting of the above - Admit patient to medical floor with telemetry monitoring -Patient is currently on his 4 L nasal cannula saturating 93% which I am okay with -Start IV azithromycin 5 mg every 24 hours and IV Zosyn to be dosed by pharmacy -Obtain sputum culture -Continue DuoNebs and Robitussin -Start with IV methylprednisolone 40 mg every 8 hours -I did reconcile his medications including his p.o. anticoagulation -Will hold off on further IV diuresis as he appears to be as euvolemic -Ordered CT chest without contrast -Obtain cardiology consult and obtain echocardiogram -Full code, I discussed that with the patient and his family members. I will update that in the chart -Discussed the plan with the patient in details. Answered all his questions -PT/OT eval 07/16/2025 patient's work of breathing appears to be normal. CT chest without contrast showed multifocal pneumonia. Hold off on further IV diuresis. Will sw itch his DuoNeb to levalbuterol given his tachycardia and A-fib RVR. Will continue with IV azithromycin and IV Zosyn that are being dosed by pharmacy. Sputum cultures pending. Ordered PAP to help with his secretions. Patient's p.o. metoprolol will continue as well. I will continue the patient on his IV methylprednisone but will make it every 12 hours. Echo read is pending. I will update his nuclear chemistry technician as outpatient, Dr. Ruiz later today or tomorrow depending on his clinical response. I discussed the plan with the patient and his family members in details. Answered all their questions. They were appreciative of our efforts 07/17/2025 patient went into A-fib with RVR yesterday again and was placed on Cardizem drip. His BP is better. Patient continues to be on IV azithromycin, IV Zosyn as well. I will add IV vancomycin today to be dosed by pharmacy. Sputum culture is pending. Echo showing global LVSF being hyperdynamic, EF 65-70%, Normal RV size and function. LF normal. No valvular abnormalities. I asked tro restart his metoprolol and try to wean him off the drip. Cardiology consulted. Discussed the plan with the pt and his , suggested to transfer the pt to [facility] where there is Pulm covering, as pt may need their input given his complicated Hx. Pt and opted for transfer, and was started immediately. He is on 4 liters nasal cannula, not in acute distress. Internal Medicine - PN: Subj Subjective Interval history: Patient seen and examined at bedside. He was accompanied by his in the room today. He went into A-fib RVR yesterday and he tells me that his heart rate goes up and he gets really winded easily whenever he tries to stand up and walk from the bed to the bathroom even. He is stable. He extensive wheezing however states that he feels overall better than when he first came in. Denies any fever or chills. His labs were unremarkable except for some leukocytosis which could be due to the steroids. He was placed on Cardizem drip yesterday Exam Narrative Exam Narrative: General appearance: Patient ill-appearing with improved work of breathing today specially at rest however he gets only dizzy when he tries to walk or stand up even. He is not tachypneic and his work of breathing is better he is able to speak in full sentences.He does not use accessory muscles. Sitting up in bed very pleasant and cooperative. He is ill-appearing as a mention. Skin/oral cavity: moist oral mucous membranes Head: Atraumatic, normocephalic Eyes: conjunctivae normal and no scleral icterus, PERRLA, EOMI supple, no JVD, no lymphadenopathy, no thyromegaly Pulm: Effort & inspection: Decreased bilateral air entry with expiratory wheezes, work of breathing improved compared to yesterday. Also patient is able to speak in full sentences today he is not tachypneic. He does not use accessory muscles. He is not using abdominal wall muscles he is in mild respiratory distress CVS: regular rhythm, normal heart rate, no murmurs, normal S1 and S2 Abdomen: Soft, nontender, no organomegaly, no signs of acute abdomen Extremities: Intact peripheral pulses bilaterally, no lower extremity edema Neuro: oriented x3, CN's II-XII intact bilaterally and moves all extremities, normal speech, no focal deficits Constitutional Vital Signs, click to edit/add: Last Vital Signs Temp 97.7 F 07/17/25 07:19 Pulse 102 H 07/17/25 10:27 Resp 13 07/17/25 05:43 BP 144/85 H 07/17/25 07:19 Pulse Ox 93 L 07/17/25 10:27 O2 Del Method Nasal Cannula 07/17/25 10:27 O2 Flow Rate 4 07/17/25 10:27 Internal Medicine - PN: Obj Da Labs Labs: Laboratory Results - last 24 hr 07/17/25 04:48 WBC 14.5 H RBC 3.88 L Hgb 12.8 L Hct 38.1 L MCV 98.2 H MCH 33.0 MCHC 33.6 RDW 12.7 Plt Count 367 MPV 10.5 Neut % (Auto) 83.4 H Lymph % (Auto) 12.8 L [place] % (Auto) 3.2 Eos % (Auto) 0.0 L Baso % (Auto) 0.1 L Neut # (Auto) 12.1 H Lymph # (Auto) 1.9 [place] # (Auto) 0.5 Eos # (Auto) 0.0 Baso # (Auto) 0.0 Abs Immat Gran (auto) 0.07 H Imm/Tot Granulo (auto) 0.5 Sodium 139 Potassium 4.2 Chloride 103 Carbon Dioxide 26.7 Anion Gap 13.5 BUN 23.0 H Creatinine 1.17 Est GFR ( Amer) >60 Est GFR (Non-Af Amer) >60 BUN/Creatinine Ratio 19.7 Glucose 171 H Calcium 9.2 Magnesium 2.3 Total Bilirubin 0.4 AST 34 ALT 73 H Alkaline Phosphatase 102 Total Protein 7.4 Albumin 3.1 L Globulin 4.3 Albumin/Globulin Ratio 0.7
[2025-07-17] MEDS: METOPROLOL TARTRATE 50 MG TABLET PO (10:50)
--- NOTE | 2025-07-17 12:10 | CM.NOTE ---
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 Original Note: CM called [facility] transfer line for update. Hospitalist has been notified to reach out to Dr. Robles, updated Dr. Robles.
[2025-07-17] MEDS: VANCOMYCIN HCL 1,000 MG in 0.9 % SODIUM CHLORIDE 250 ML 250 MG IV (12:14)
--- NOTE | 2025-07-17 12:20 | CM.NOTE ---
Dr. Travis wills CM that pt has been accepted to [facility], [facility] will call with bed number.
--- NOTE | 2025-08-12 14:22 | P.DS_ITS ---
DS: Providers Provider Date of admission: 07/15/25 17:50 Primary care physician: LESLY ALVAREZ Consults: 07/15/25 Consult to Dietitian Routine Reason for consultation: poor appetite 07/15/25 16:16 Occupational Therapy Eval and Treat Routine Reason for consultation: weakness Physical Therapy Eval and Treat Routine Reason for consultation: weakness 07/17/25 09:35 Consult to Cardiology Routine Reason for consultation: afib with rvr Anticipated date of discharge: 07/17/25 DS: Diagnosis Discharge Diagnosis (1) COPD exacerbation: (2) Community acquired pneumonia: (3) Acute hypoxic respiratory failure: DS: Summary Hospital Course Hospital Course: (1) COPD exacerbation: (2) Community acquired pneumonia: (3) Acute hypoxic respiratory failure: Plan Acute hypoxic respiratory failure in the setting of acute COPD/emphysema exacerbation with superimposed multifocal pneumonia CHF exacerbations like slightly given his clinical picture and normal BNP A-fib with RVR, brief episode in the setting of the above - Admit patient to medical floor with telemetry monitoring -Patient is currently on his 4 L nasal cannula saturating 93% which I am okay with -Start IV azithromycin 5 mg every 24 hours and IV Zosyn to be dosed by pharmacy -Obtain sputum culture -Continue DuoNebs and Robitussin -Start with IV methylprednisolone 40 mg every 8 hours -I did reconcile his medications including his p.o. anticoagulation -Will hold off on further IV diuresis as he appears to be as euvolemic -Ordered CT chest without contrast -Obtain cardiology consult and obtain echocardiogram -Full code, I discussed that with the patient and his family members. I will update that in the chart -Discussed the plan with the patient in details. Answered all his questions -PT/OT eval 07/16/2025 patient's work of breathing appears to be normal. CT chest without contrast showed multifocal pneumonia. Hold off on further IV diuresis. Will switch his DuoNeb to levalbuterol given his tachycardia and A-fib RVR. Will co ntinue with IV azithromycin and IV Zosyn that are being dosed by pharmacy. Sputum cultures pending. Ordered PAP to help with his secretions. Patient's p.o. metoprolol will continue as well. I will continue the patient on his IV methylprednisone but will make it every 12 hours. Echo read is pending. I will update his court specialist as outpatient, Dr. Ruiz later today or tomorrow depending on his clinical response. I discussed the plan with the patient and his family members in details. Answered all their questions. They were appreciative of our efforts 07/17/2025 patient went into A-fib with RVR yesterday again and was placed on Cardizem drip. His BP is better. Patient continues to be on IV azithromycin, IV Zosyn as well. I will add IV vancomycin today to be dosed by pharmacy. Sputum culture is pending. Echo showing global LVSF being hyperdynamic, EF 65-70%, Normal RV size and function. LF normal. No valvular abnormalities. I asked tro restart his metoprolol and try to wean him off the drip. Cardiology consulted. Discussed the plan with the pt and his , suggested to transfer the pt to [facility] where there is Pulm covering, as pt may need their input given his complicated Hx. Pt and opted for transfer, and was started immediately. He is on 4 liters nasal cannula, not in acute distress. Pt later was accepted by Dr. Molina at [facility], bed was found and pt was discharged from our facility yovani stable manner Time Spent with Patient Time attestation: Total time spent providing and/or coordinating discharge services: Exam Constitutional Vital Signs, click to edit/add: Last Vital Signs Temp 97.7 F 07/17/25 07:19 Pulse 95 H 07/17/25 11:54 Resp 18 07/17/25 11:45 BP 162/70 H 07/17/25 11:01 Pulse Ox 93 L 07/17/25 12:00 O2 Del Method Nasal Cannula 07/17/25 10:27 O2 Flow Rate 4 07/17/25 10:27 Discharge Plan Discharge Disposition: [facility] Condition: Fair Discharge Date/Time: 07/17/25 14:10
== END 2025-07-17 14:10 | disposition short-term general hospital (02) | DRG 190 ==
LOC: ER 16:13 → MS 18:00
PROVIDERS: Nurse Practitioner Family; Admitting Provider Student in an Organized Health Care Education/Training Program; Emergency Provider Emergency Medicine; PCP Nurse Practitioner Family; Visit Provider Student in an Organized Health Care Education/Training Program
DX: J44.1 Chronic obstructive pulmonary disease with (acute) exacerbation (principal); J18.9 Pneumonia, unspecified organism; J96.11 Chronic respiratory failure with hypoxia; J44.0 Chronic obstructive pulmonary disease with (acute) lower respiratory infection; I11.0 Hypertensive heart disease with heart failure; I50.9 Heart failure, unspecified; I48.91 Unspecified atrial fibrillation; D72.829 Elevated white blood cell count, unspecified; C44.90 Unspecified malignant neoplasm of skin, unspecified; T38.0X5A Adverse effect of glucocorticoids and synthetic analogues, initial encounter; F17.210 Nicotine dependence, cigarettes, uncomplicated; Z99.81 Dependence on supplemental oxygen; Z14.8 Genetic carrier of other disease; Z79.899 Other long term (current) drug therapy; Z79.01 Long term (current) use of anticoagulants; Z79.82 Long term (current) use of aspirin; Z79.52 Long term (current) use of systemic steroids; E88.01 Alpha-1-antitrypsin deficiency
CPT/HCPCS: 36415; 71045; 71250; 80053; 83605; 83735; 83880; 84100; 84484; 85025; 87040; 87070; 87077; 87186; 87205; 87420; 87804; 87811; 89220; 93005; 93306; 94640; 94667; 94668; 94761; 96365; 96367; 96375; 97161; 97165; 99285; J0256; J0456; J0696; J1160; J1938; J2543; J2919; J3373

== ENCOUNTER 2025-08-05 12:46 | Outpatient (RCR) | payer MEDICARE, SELFPAY ==
[2025-04-06 00:01] VITALS: BP 168/80
[2025-07-08 12:59] VITALS: BP 142/90; PULSE 142; TEMP 36.6; O2SAT 93
[2025-07-08 13:15] VITALS: PULSE 84
[2025-07-08 14:03] VITALS: BP 131/80; PULSE 84; TEMP 37; O2SAT 93
[2025-07-15 13:09] VITALS: BP 131/91; PULSE 150; TEMP 36.6; O2SAT 96
[2025-07-15 13:30] VITALS: PULSE 95
[2025-07-28 12:57] VITALS: BP 126/88; PULSE 76; TEMP 36.2; O2SAT 94
[2025-08-05 12:45] VITALS: BP 141/84; PULSE 69; TEMP 37.1; O2SAT 94
== END 2025-08-05 23:59 | disposition home or self-care (01) ==
LOC: INF 12:46
PROVIDERS: PCP Nurse Practitioner Family; Visit Provider Internal Medicine
DX: E88.01 Alpha-1-antitrypsin deficiency (principal); J43.2 Centrilobular emphysema
CPT/HCPCS: 96365; J0256